=== PATIENT | male | born 1955 | race Caucasian/White ===

== ENCOUNTER 2020-07-14 18:38 | Inpatient (IN) | payer MEDICARE, SELFPAY ==
[2020-07-14] VITALS (7 sets, daily range): BP systolic 96–123; BP diastolic 53–60; PULSE 69–94; RESP 12–28; TEMP 39.5; O2SAT 95–98; BMI 52.3
--- NOTE | 2020-07-14 19:18 | CTR_ITS ---
PROCEDURE INFORMATION: Exam: CT Head Without Contrast Exam date and time: 07/14/2020 7:25 PM Age: 65 years old Clinical indication: Injury or trauma; Fall; Concussion/head injury; Consciousness not specified; Additional info: Fall, head injury, on anticoagulation TECHNIQUE: Imaging protocol: Computed tomography of the head without contrast. Radiation optimization: All CT scans at this facility use at least one of these dose optimization techniques: automated exposure control; mA and/or kV adjustment per patient size (includes targeted exams where dose is matched to clinical indication); or iterative reconstruction. COMPARISON: CT head wo con* [id number] 11/29/2013 9:10 PM RADIATION DOSE METRICS: Total DLP (mGy-cm): 926.27 FINDINGS: Brain: Mild atrophy and mild white matter chronic microvascular changes are noted. No hemorrhage or CT evidence of acute infarction is seen. Cerebral ventricles: No ventriculomegaly. Bones/joints: Unremarkable. No acute fracture. Paranasal sinuses: Visualized sinuses are unremarkable. No fluid levels. Mastoid air cells: Visualized mastoid air cells are well aerated. Soft tissues: Unremarkable. CT/CT head wo con* [id number] IMPRESSION: No acute intracranial abnormality. Radiation Dose CTDIVOL = (mGy): DLP = 926.27 (mGy-cm)
--- NOTE | 2020-07-14 19:18 | XR_ITS ---
WS: [id number] Portable AP upright chest, 07/14/2020 Clinical Data: SOB Comparison: Portable chest, 11/29/2013. Findings: No nodules, masses or effusions are seen. The heart is enlarged. The pulmonary vascularity is not increased. No pneumonia or pneumothorax is seen. The patient is rotated. Monitor leads are on the chest wall. XR/XR chest 1V portable [id number] Impression: Cardiomegaly.
[2020-07-14 19:32] LABS: Basophils % 0.4 %; Hematocrit 41.4 % (42.0-52.0); Hemoglobin 12.5 g/dL (11.7-16.6); Lymphocytes # 0.4 10^3/uL (0.8-4.8); Lymphocytes % 5.1 %; Mean Corpuscular HGB Conc 30.2 g/dL (30.0-36.0); Mean Corpuscular Hemoglobin 28.7 pg (28.0-34.0); Mean Platelet Volume 10.2 fL (7.4-10.4); Monocytes # 0.4 10^3/uL (0.2-0.9); Monocytes % 5.4 %; Neutrophils # 7.26 10^3/uL (1.8-7.7); Neutrophils % 88.7 %; Nucleated Red Blood Cells % 0 %; Platelet Count 163 10^3/cmm (130-400); Red Blood Count 4.36 10^6/uL (4.1-5.3); Red Cell Distribution Width 15.1 % (12.1-15.1); White Blood Count 8.2 10^3/uL (4.0-10.0)
[2020-07-14 19:58] LABS: INR 1.56 (0.8-1.2)
[2020-07-14 20:01] LABS: Lactate (Lactic Acid level) 1.8 mmol/L (0.5-2.2)
[2020-07-14 20:12] LABS: NT Pro B Type Natriuretic Pept 780 pg/mL (0-125); Procalcitonin 15.94 ng/mL (0-0.5)
[2020-07-14 20:23] LABS: Alanine Aminotransferase 31 U/L (0-41); Albumin Level 3.2 g/dL (3.5-5.2); Alkaline Phosphatase 76 IU/L (40-130); Anion Gap 12.6 (5-19); Aspartate Amino Transferase 69 U/L (0-40); Blood Urea Nitrogen 16 mg/dL (8-23); C Reactive Protein 123.4 mg/L (0.0-4.9); Calcium 9.1 mg/dL (8.5-10.5); Carbon Dioxide 27 mmol/L (22-29); Chloride 97 mmol/L (98-107); Globulin 3.3 g/dL (1.3-4.6); Glomerular Filtration Rate 113.9 mL/min (90-130); Glucose 137 mg/dL (65-115); Osmolality Calculated 277 mOsm/kg (285-295); Potassium 4.6 mmol/L (3.5-5.1); Sodium 132 mmol/L (136-145); Total Bilirubin 0.9 mg/dL (0.15-1.2); Total Protein 6.5 g/dL (6.6-8.7)
[2020-07-14 20:38] LABS: SARS Covid-2 Antigen Negative (Negative)
[2020-07-14 21:15] LABS: ABG PH Result 7.27 (7.35-7.45); Arterial Blood Gas Hematocrit 39.7 % (42-52); Base Excess ABG 1.7 mmol/L (-2.0-2.0); Blood Gas Allen Test Pos; Blood Gas Sample Site Radial, right; Blood Gas Sample Type Arterial; HCO3 ABG 30.3 mmol/L (22-26); Oxygen Device NRB
--- NOTE | 2020-07-14 21:29 | ECG_ITS ---
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 Measurements Intervals [place] Rate: 60 P: 20 GA: 221 QRS: -20 QRSD: 112 T: 25 QT: 443 QTc: 446 Interpretive Statements SINUS RHYTHM WITH FIRST DEGREE AV BLOCK MODERATE INTRAVENTRICULAR CONDUCTION DELAY [110+ ms QRS DURATION] No previous ECG available for comparison Electronically Signed On 07-14-2020 21:52:43 [employer] by Nuris Zuniga M.D. [id number]
[2020-07-14 22:11] LABS: Troponin(5th) Baseline 46 ng/L (0-15)
[2020-07-14 22:21] LABS: ABG PCO2 62.7 mmHg (35-45); ABG PH Result 7.29 (7.35-7.45); Arterial Blood Gas Hematocrit 40.3 % (42-52); Base Excess ABG 1.5 mmol/L (-2.0-2.0); Blood Gas Allen Test Pos; Blood Gas Sample Site Radial, right; Blood Gas Sample Type Arterial; HCO3 ABG 29.7 mmol/L (22-26); Oxygen Device BIPAP
[2020-07-14 23:00] LABS: ABG PCO2 66.3 mmHg (35-45)
[2020-07-14 23:38] LABS: Bilirubin Urine Neg (Negative); Blood Urine 2+ (Negative); Glucose Urine UA Norm (Normal); Ketones Urine Negative (Negative); Nitrate Urine Negative (Negative); Protein Urine Trace (Negative); Specific Gravity, Urine 1.025 (1.005-1.030); Urine Appearance Hazy (CLEAR); Urine Color Dark Yellow (Yellow); Urobilinogen Urine 1 mg/dL (Negative)
[2020-07-14 23:39] LABS: Add Urine Microscopic? YES; Leukocyte Esterase Urine Negative (Negative); WBC Urine 15-25 /hpf (0-5)
[2020-07-14 23:40] LABS: Add Urine Culture? Yes; Bacteria Urine 1+ /hpf
[2020-07-14 23:45] LABS: Troponin 5 2HR 35.79 ng/L (0-15)
[2020-07-14] MEDS: cefepime 2,000 MG in sodium chloride 0.9% (plus) 50 ML 100 MG IV (23:52)
[2020-07-15] VITALS (54 sets, daily range): BP systolic 80–152; BP diastolic 34–82; PULSE 45–80; RESP 11–27; TEMP 36.2–38.2; O2SAT 91–100
--- NOTE | 2020-07-15 00:03 | W.ED.FALL ---
HPI - Fall General: Chief Complaint: Fall Stated Complaint: DIFFICULTY BREATHING/ AMS Time Seen by Provider: 07/14/20 18:41 Source: patient Mode of arrival: EMS Limitations: no limitations History of Present Illness: HPI Narrative: This is a 65-year-old male with a past medical history consistent with diabetes mellitus, hypertension, and he is morbidly obese. He presents to the emergency department with difficulty breathing. He states that he has fallen down 3 times today and he is short of breath. He has also a history of atrial fibrillation and he is on warfarin anticoagulation. He was seen at [facility] in [place] earlier today and was discharged home. Looking through his records from [facility] the patient refused admission and the ED physician did not see any reason why the patient should be admitted. When he got home apparently his home health nurse said that his oxygen saturation was 44% on room air after he had fallen at home. He was placed on oxygen via nonrebreather mask and brought to the emergency department for evaluation. The patient denies fever but he was febrile on arrival. He denies any sick contacts. Associated symptoms-after fall: Denies abdominal pain, headache(s) or neck pain Review of Systems General: Reports: 10 or more systems reviewed and unremarkable except in HPI and below Const: Denies: fever(s), chills or body aches Eyes: Denies: change in vision or blurry vision ENMT: Denies: throat pain, enlarged tonsils, odynophagia, hoarseness, mouth pain or swelling of lips/tongue Card: Denies: palpitations, irregular heart rhythm, edema or swelling of feet/ankles Resp: Reports: dyspnea; Denies: productive cough or non-productive cough GI: Denies: abdominal pain, nausea or vomiting : Denies: flank pain, dysuria, urinary frequency, urinary urgency or urinary hesitancy Musc: Denies: neck pain, back pain or extremity swelling Skin/Breast: Denies: rash, pruritus or erythema Neuro: Denies: headache(s), numbness in extremities or weakness in extremities Endo: Denies: polyuria, polydipsia or tired all the time [facility] ED PFSH: Medical History (Updated 07/15/20 @ 11:21 by Daphnie Victoria MD, [facility]) Atrial fibrillation Diabetes mellitus, type II GERD (gastroesophageal reflux disease) History of gastric ulcer with perforation Hypertension Morbid obesity with BMI of 50.0-59.9, adult Surgical History (Updated 07/15/20 @ 01:14 by Katelyn Hamm MD) History of esophagogastroduodenoscopy History of exploratory laparotomy for perforated gastric ulcer Family History (Updated 07/15/20 @ 01:15 by Katelyn Hamm MD) Father Cancer lung Mother Asthma CAD (coronary artery disease) Sister Cerebral aneurysm Social History (Updated 07/15/20 @ 01:16 by Katelyn Hamm MD) Smoking and tobacco status: former smoker Current occupational status: disabled Previous occupational history: history of working in [employer] Physical Exam Const: COMMON NORMALS: no acute distress, patient oriented x3, no limitations, healthy appearing, alert and well nourished NUTRITIONAL APPEARANCE: obese morbidly obese HENMT: COMMON NORMALS: normocephalic, atraumatic and moist oral mucous membranes HEAD & SCALP: normocephalic and atraumatic Neck/C-Spine: COMMON NORMALS: no meningeal signs and no JVD Resp: COMMON NORMALS: normal respiratory effort, No retractions, No use of accessory muscles, clear to auscultation bilaterally and percussion normal EFFORT & INSPECTION: Yes tripod positioning AUSCULTATION: clear to auscultation bilaterally and other (Breath sounds extremely difficult to auscultate due to body habitus) PERCUSSION: percussion normal Cardio: COMMON NORMALS: no JVD, regular rate, regular rhythm, S1 normal heart sound present, S2 normal heart sound present, No gallops present (Cardio), No clicks present (Cardio), No murmurs present (Cardio), No rub (Cardio) and Peripheral pulses 2+ throughout RATE: regular rate RHYTHM: regular rhythm HEART SOUNDS: S1 normal heart sound present and S2 normal heart sound present PERIPHERAL PULSES: Peripheral pulses 2+ throughout GI: COMMON NORMALS: Normal to inspection, nondistended, normoactive bowel sounds present, Soft to palpation, non-tender, No hepatosplenomegaly present, no masses and no bruits INSPECTION: Yes incision (Healed old surgical incision that extends from his xiphoid to his suprapubi) PALPATION: Yes Soft to palpation and Yes No hepatosplenomegaly present Extremity: COMMON NORMALS: normal to inspection, full ROM, capillary refill normal, no calf tenderness and no pedal edema Neuro: COMMON NORMALS: patient oriented x3 SENSORIUM/ORIENTATION: Yes alert MENINGEAL SIGNS: Yes no meningeal signs Skin: COMMON NORMALS: no rashes or lesions noted, no wounds, turgor normal, no jaundice, no petechiae and no mottling GENERAL SKIN EXAM: no rashes or lesions noted and turgor normal Course ED course: Patient who presented to the ED with SOB. He was noted to be in hypercapneic respiratory failure and required ventilation via BiPAP. He is admitted to the hospitalist service for further evaluation and management. Consultations: Consultation #1: Discussed the patient with Dr. Hamm, hospitalist and she kindly accepted the patient to her service. Time: 23:59 Vital Signs: Vital signs: Vital Signs Temperature 97.2 F L 07/15/20 08:15 Pulse Rate 68 07/15/20 09:37 Respiratory Rate 16 07/15/20 08:15 Blood Pressure 125/64 07/15/20 08:15 Pulse Oximetry 96 07/15/20 09:37 MDM - Fall MDM Narrative: Medical decision making narrative: 65-year-old morbidly obese gentleman with a history of hypertension, atrial fibrillation on anticoagulation and diabetes presented today in respiratory failure. He has been seen at another facility today and work-up done was unremarkable. He apparently has had a total of 3 falls today at home and after his last fall he was noted to be hypoxic. Evaluation here shows that he is febrile, was mildly tachycardic on arrival, was tachypneic on arrival and was in hypercapnic respiratory failure. Because of his body habitus his chest x-ray is a poor view and he is beyond what he needs for a CT scan of his chest for our CT scanner. He was tripoding on arrival and eventually was placed on BiPAP. On evaluation his procalcitonin was significantly elevated and he tested negative for the rapid Covid test. A PCR test has been sent out also. Cardiac work-up is essentially unremarkable. He is admitted to the hospitalist service for further evaluation and management. He was given a dose of intravenous cefepime in the emergency department. Because his procalcitonin is elevated he is being managed as a case of pneumonia which may either be a primary community-acquired pneumonia or secondary bacterial infection, viral pneumonia. Medical Records: Attestation: I reviewed the patient's medical records. Lab Data: Attestation: I reviewed the patient's lab results. Labs: Lab Results 07/14/20 07/14/20 07/14/20 Range/Units 19:22 19:22 19:22 WBC 8.2 (4.0-10.0) 10^3/ uL RBC 4.36 (4.1-5.3) 10^6/u L Hgb 12.5 (11.7-16.6) g/dL Hct 41.4 L (42.0-52.0) % MCV 95.0 H (80-94) fL MCH 28.7 (28.0-34.0) pg MCHC 30.2 (30.0-36.0) g/dL RDW 15.1 (12.1-15.1) % Plt Count 163 (130-400) 10^3/c mm MPV 10.2 (7.4-10.4) fL Neut % (Auto) 88.7 % Lymph % (Auto) 5.1 % Whitfield % (Auto) 5.4 % Eos % (Auto) 0.0 % Baso % (Auto) 0.4 % Neut # (Auto) 7.26 (1.8-7.7) 10^3/u L Lymph # (Auto) 0.4 L (0.8-4.8) 10^3/u L Whitfield # (Auto) 0.4 (0.2-0.9) 10^3/u L Eos # (Auto) 0.0 (0.0-0.8) 10^3/u L Baso # (Auto) 0.0 (0.0-0.1) 10^3/u L Nucleated RBC % (a uto) 0 % Nucleated RBCs # 0.0 /100WBC PT 19.30 H (12.1-14.9) SECO NDS INR 1.56 H (0.8-1.2) Specimen Type Sample Site ABG pH (7.35-7.45) ABG pCO2 (35-45) mmHg ABG pO2 (80.0-100.0) mmH g ABG HCO3 (22-26) mmol/L ABG Base Excess (-2.0-2.0) mmol/ L Ronald Test Hematocrit (42-52) % O2 Delivery Device O2 Liters/Min % FiO2 % Physiotherapist'S Assistant ID Sodium 132 L (136-145) mmol/L Potassium 4.6 (3.5-5.1) mmol/L Chloride 97 L (98-107) mmol/L Carbon Dioxide 27 (22-29) mmol/L Anion Gap 12.6 (5-19) BUN 16 (8-23) mg/dL Creatinine 0.7 (0.7-1.2) mg/dL GFR Calculation 113.9 (90-130) mL/min Glucose 137 H (65-115) mg/dL Calculated Osmolal ity 277 L (285-295) mOsm/k g Lactate (0.5-2.2) mmol/L Calcium 9.1 (8.5-10.5) mg/dL Total Bilirubin 0.9 (0.15-1.2) mg/dL AST 69 H (0-40) U/L ALT 31 (0-41) U/L Alkaline Phosphata se 76 (40-130) IU/L Troponin T Baselin e (0-15) ng/L Troponin T 120 Min [place] (0-15) ng/L Delta Troponin T (0-10) ABS# C-Reactive Protein 123.4 H (0.0-4.9) mg/L NT-Pro-B Natriuret Pep 780 H (0-125) pg/mL Total Protein 6.5 L (6.6-8.7) g/dL Albumin 3.2 L (3.5-5.2) g/dL Globulin 3.3 (1.3-4.6) g/dL Procalcitonin 15.94 H (0-0.5) ng/mL Urine Color (Yellow) Urine Appearance (CLEAR) Urine pH (5-7) Ur Specific Gravit y (1.005-1.030) Urine Protein (Negative) Urine Glucose (UA) (Normal) Urine Ketones (Negative) Urine Blood (Negative) Urine Nitrate (Negative) Urine Bilirubin (Negative) Urine Urobilinogen (Negative) mg/dL Ur Leukocyte Marly ase (Negative) Urine RBC (0-2) /hpf Urine WBC (0-5) /hpf Ur Squamous Epith Cells (0-5) /hpf Amorphous Sediment Urine Bacteria (NONE) /hpf SARS-CoV-2 Ag (Rap id) (Negative) 07/14/20 07/14/2007/14/21 Range/Units 19:22 20:00 21:00 WBC (4.0-10.0) 10^3/ uL RBC (4.1-5.3) 10^6/u L Hgb (11.7-16.6) g/dL Hct (42.0-52.0) % MCV (80-94) fL MCH (28.0-34.0) pg MCHC (30.0-36.0) g/dL RDW (12.1-15.1) % Plt Count (130-400) 10^3/c mm MPV (7.4-10.4) fL Neut % (Auto) % Lymph % (Auto) % [place] % (Auto) % Eos % (Auto) % Baso % (Auto) % Neut # (Auto) (1.8-7.7) 10^3/u L Lymph # (Auto) (0.8-4.8) 10^3/u L [place]field # (Auto) (0.2-0.9) 10^3/u L Eos # (Auto) (0.0-0.8) 10^3/u L Baso # (Auto) (0.0-0.1) 10^3/u L Nucleated RBC % (a uto) % Nucleated RBCs # /100WBC PT (12.1-14.9) SECO NDS INR (0.8-1.2) Specimen Type Arterial Sample Site Radial, right ABG pH 7.27 L (7.35-7.45) ABG pCO2 66.3 H* (35-45) mmHg ABG pO2 159.0 H (80.0-100.0) mmH g ABG HCO3 30.3 H (22-26) mmol/L ABG Base Excess 1.7 (-2.0-2.0) mmol/ L Ronald Test Pos Hematocrit 39.7 L (42-52) % O2 Delivery Device Nrb O2 Liters/Min 15.0 % FiO2 % Physiotherapist'S Assistant ID [id number] Sodium (136-145) mmol/L Potassium (3.5-5.1) mmol/L Chloride (98-107) mmol/L Carbon Dioxide (22-29) mmol/L Anion Gap (5-19) BUN (8-23) mg/dL Creatinine (0.7-1.2) mg/dL GFR Calculation (90-130) mL/min Glucose (65-115) mg/dL Calculated Osmolal ity (285-295) mOsm/k g Lactate 1.8 (0.5-2.2) mmol/L Calcium (8.5-10.5) mg/dL Total Bilirubin (0.15-1.2) mg/dL AST (0-40) U/L ALT (0-41) U/L Alkaline Phosphata se (40-130) IU/L Troponin T Baselin e (0-15) ng/L Troponin T 120 Min [place] (0-15) ng/L Delta Troponin T (0-10) ABS# C-Reactive Protein (0.0-4.9) mg/L NT-Pro-B Natriuret Pep (0-125) pg/mL Total Protein (6.6-8.7) g/dL Albumin (3.5-5.2) g/dL Globulin (1.3-4.6) g/dL Procalcitonin (0-0.5) ng/mL Urine Color (Yellow) Urine Appearance (CLEAR) Urine pH (5-7) Ur Specific Gravit y (1.005-1.030) Urine Protein (Negative) Urine Glucose (UA) (Normal) Urine Ketones (Negative) Urine Blood (Negative) Urine Nitrate (Negative) Urine Bilirubin (Negative) Urine Urobilinogen (Negative) mg/dL Ur Leukocyte Marly ase (Negative) Urine RBC (0-2) /hpf Urine WBC (0-5) /hpf Ur Squamous Epith Cells (0-5) /hpf Amorphous Sediment Urine Bacteria (NONE) /hpf SARS-CoV-2 Ag (Rap id) Negative (Negative) 07/14/20 07/14/20 07/14/20 Range/Units 21:50 22:10 22:50 WBC (4.0-10.0) 10^3/ uL RBC (4.1-5.3) 10^6/u L Hgb (11.7-16.6) g/dL Hct (42.0-52.0) % MCV (80-94) fL MCH (28.0-34.0) pg MCHC (30.0-36.0) g/dL RDW (12.1-15.1) % Plt Count (130-400) 10^3/c mm MPV (7.4-10.4) fL Neut % (Auto) % Lymph % (Auto) % [place] % (Auto) % Eos % (Auto) % Baso % (Auto) % Neut # (Auto) (1.8-7.7) 10^3/u L Lymph # (Auto) (0.8-4.8) 10^3/u L [place] # (Auto) (0.2-0.9) 10^3/u L Eos # (Auto) (0.0-0.8) 10^3/u L Baso # (Auto) (0.0-0.1) 10^3/u L Nucleated RBC % (a uto) % Nucleated RBCs # /100WBC PT (12.1-14.9) SECO NDS INR (0.8-1.2) Specimen Type Arterial Sample Site Radial, right ABG pH 7.29 L (7.35-7.45) ABG pCO2 62.7 H* (35-45) mmHg ABG pO2 105.0 H (80.0-100.0) mmH g ABG HCO3 29.7 H (22-26) mmol/L ABG Base Excess 1.5 (-2.0-2.0) mmol/ L Ronald Test Pos Hematocrit 40.3 L (42-52) % O2 Delivery Device Bipap O2 Liters/Min % FiO2 40.0 % Physiotherapist'S Assistant ID [id number] Sodium (136-145) mmol/L Potassium (3.5-5.1) mmol/L Chloride (98-107) mmol/L Carbon Dioxide (22-29) mmol/L Anion Gap (5-19) BUN (8-23) mg/dL Creatinine (0.7-1.2) mg/dL GFR Calculation (90-130) mL/min Glucose (65-115) mg/dL Calculated Osmolal ity (285-295) mOsm/k g Lactate (0.5-2.2) mmol/L Calcium (8.5-10.5) mg/dL Total Bilirubin (0.15-1.2) mg/dL AST (0-40) U/L ALT (0-41) U/L Alkaline Phosphata se (40-130) IU/L Troponin T Baselin e 46 H (0-15) ng/L Troponin T 120 Min [place] (0-15) ng/L Delta Troponin T (0-10) ABS# C-Reactive Protein (0.0-4.9) mg/L NT-Pro-B Natriuret Pep (0-125) pg/mL Total Protein (6.6-8.7) g/dL Albumin (3.5-5.2) g/dL Globulin (1.3-4.6) g/dL Procalcitonin (0-0.5) ng/mL Urine Color Dark yellow (Yellow) Urine Appearance Hazy A (CLEAR) Urine pH 5.0 (5-7) Ur Specific Gravit y 1.025 (1.005-1.030) Urine Protein Trace (Negative) Urine Glucose (UA) Norm (Normal) Urine Ketones Negative (Negative) Urine Blood 2+ H (Negative) Urine Nitrate Negative (Negative) Urine Bilirubin Neg (Negative) Urine Urobilinogen 1 H (Negative) mg/dL Ur Leukocyte Marly ase Negative (Negative) Urine RBC 10-15 H (0-2) /hpf Urine WBC 15-25 H (0-5) /hpf Ur Squamous Epith Cells None (0-5) /hpf Amorphous Sediment Not Reportable Urine Bacteria 1+ H (NONE) /hpf SARS-CoV-2 Ag (Rap id) (Negative) 07/14/20 Range/Units 23:20 WBC (4.0-10.0) 10^3/ uL RBC (4.1-5.3) 10^6/u L Hgb (11.7-16.6) g/dL Hct (42.0-52.0) % MCV (80-94) fL MCH (28.0-34.0) pg MCHC (30.0-36.0) g/dL RDW (12.1-15.1) % Plt Count (130-400) 10^3/c mm MPV (7.4-10.4) fL Neut % (Auto) % Lymph % (Auto) % [place] % (Auto) % Eos % (Auto) % Baso % (Auto) % Neut # (Auto) (1.8-7.7) 10^3/u L Lymph # (Auto) (0.8-4.8) 10^3/u L [place] # (Auto) (0.2-0.9) 10^3/u L Eos # (Auto) (0.0-0.8) 10^3/u L Baso # (Auto) (0.0-0.1) 10^3/u L Nucleated RBC % (a uto) % Nucleated RBCs # /100WBC PT (12.1-14.9) SECO NDS INR (0.8-1.2) Specimen Type Sample Site ABG pH (7.35-7.45) ABG pCO2 (35-45) mmHg ABG pO2 (80.0-100.0) mmH g ABG HCO3 (22-26) mmol/L ABG Base Excess (-2.0-2.0) mmol/ L Ronald Test Hematocrit (42-52) % O2 Delivery Device O2 Liters/Min % FiO2 % Physiotherapist'S Assistant ID Sodium (136-145) mmol/L Potassium (3.5-5.1) mmol/L Chloride (98-107) mmol/L Carbon Dioxide (22-29) mmol/L Anion Gap (5-19) BUN (8-23) mg/dL Creatinine (0.7-1.2) mg/dL GFR Calculation (90-130) mL/min Glucose (65-115) mg/dL Calculated Osmolal ity (285-295) mOsm/k g Lactate (0.5-2.2) mmol/L Calcium (8.5-10.5) mg/dL Total Bilirubin (0.15-1.2) mg/dL AST (0-40) U/L ALT (0-41) U/L Alkaline Phosphata se (40-130) IU/L Troponin T Baselin e (0-15) ng/L Troponin T 120 Min [place] 35.79 H (0-15) ng/L Delta Troponin T -10.21 L (0-10) ABS# C-Reactive Protein (0.0-4.9) mg/L NT-Pro-B Natriuret Pep (0-125) pg/mL Total Protein (6.6-8.7) g/dL Albumin (3.5-5.2) g/dL Globulin (1.3-4.6) g/dL Procalcitonin (0-0.5) ng/mL Urine Color (Yellow) Urine Appearance (CLEAR) Urine pH (5-7) Ur Specific Gravit y (1.005-1.030) Urine Protein (Negative) Urine Glucose (UA) (Normal) Urine Ketones (Negative) Urine Blood (Negative) Urine Nitrate (Negative) Urine Bilirubin (Negative) Urine Urobilinogen (Negative) mg/dL Ur Leukocyte Marly ase (Negative) Urine RBC (0-2) /hpf Urine WBC (0-5) /hpf Ur Squamous Epith Cells (0-5) /hpf Amorphous Sediment Urine Bacteria (NONE) /hpf SARS-CoV-2 Ag (Rap id) (Negative) Imaging Data^: CXR: Attestation: I personally reviewed and interpreted this imaging study as follows: My impression: For film, he has cardiomegaly but no obvious infiltrates. EKG Data^: EKG 1: Attestation: I personally reviewed and interpreted this EKG as follows: EKG interpretation date: 07/14/20 EKG interpretation time: 18:58 Prior EKG tracings: not available for review Interpretation: Sinus rhythm. Heart rate 91 bpm. Left axis deviation EKG 2: Attestation: I personally reviewed and interpreted this EKG as follows: EKG interpretation date: 07/14/20 EKG interpretation time: 21:46 Prior EKG tracings: available for review Interpretation: Sinus rhythm with first-degree AV block. Heart rate 60 bpm. Moderate intraventricular conduction delay. No ST changes. Critical Care Time Critical Care Time: Critical Care Time: Yes Total Critical Care Time: 60 Attestation: This case had a high probability of a clinically significant, sudden, or life threatening deterioration of this patient's condition which required my full and direct attention, intervention and personal management. Patient who presented in hypercapnic respiratory failure and required ventilation using a BiPAP. Discharge Plan Discharge Patient Disposition: Admitted As Inpatient Admit Provider: Katelyn Hamm Clinical Impression: Morbid obesity with BMI of 50.0-59.9, adult, Respiratory acidosis Acute respiratory failure Qualifiers: Respiratory failure complication: hypercapnia Qualified Code(s): J96.02 - Acute respiratory failure with hypercapnia Pneumonia Qualifiers: Pneumonia type: due to unspecified organism Laterality: unspecified laterality Lung location: unspecified part of lung Qualified Code(s): J18.9 - Pneumonia, unspecified organism Condition: Stable Coding Level of Care Code ED Processing [employer] Supervisor for Chg Fwd Exam Comprehensive
--- NOTE | 2020-07-15 01:10 | P.HP_ITS ---
Providers/Chief Complaint Admitting Physician: Katelyn Hamm MD Chief Complaint: DIFFICULTY BREATHING/ AMS History of Present Illness Nhan Sol is a 65 year old male who presented to the emergency room with chief complaint of shortness of breath and recurrent falls. He had been seen in an outside hospital earlier in the day after a fall and was discharged home. He had another fall and when EMS came out this time they noted that he was hypoxic. They reported his oxygen saturation being 44% on room air. He was put on a nonrebreather and transport. On arrival here oxygen saturation was 96% on the nonrebreather. He was febrile and blood pressure was in the 90s systolic. Heart rate was in the 70s. ABG showed 7.2 7/66/159. FiO2 was decreased and he was put on BiPAP. Chest x-ray was limited by body habitus but appeared to show infiltrate. Rapid Covid test was negative. A CT of the head did not show any acute intracranial abnormalities. Additional CT imaging was not able to be done due to body habitus. Patient received some antibiotics and is being admitted for further care. Patient will answer yes no to questions but does not provide a lot of specific details. Old records here are reviewed though are from 2014. Review of Systems Const: Reports: fever(s) Eyes: Denies: change in vision ENMT: Denies: throat pain or nasal congestion Card: Reports: edema; Denies: chest pain or palpitations Resp: Reports: dyspnea; Denies: productive cough or non-productive cough GI: Denies: abdominal pain, nausea, vomiting, diarrhea or constipation : Denies: difficulty urinating Musc: Reports: other (Denies specific injuries from falls) Skin/Breast: Denies: rash or pruritus Neuro: Reports: weakness in extremities and frequent falls; Denies: headache(s) or dizziness Psych: Denies: anxiety or depression Laureano/Lymph: Denies: easy bruising or easy bleeding Medications/Allergies Home Medications Medication Instructions Recorded Confirmed Last Taken Type hydrocodone-acetaminophen 1 tab PO Q6H PRN 07/14/20 07/14/20 07/14/20 History lisinopril 10 mg PO DAILY@0500 07/14/20 07/14/20 07/14/20 History metformin 500 mg PO DAILY@0500 07/14/20 07/14/20 07/14/20 History sotalol 120 mg PO Q12H 07/14/20 07/14/20 07/14/20 History warfarin 5 mg PO DAILY@0500 07/14/20 07/14/20 07/14/20 History cephalexin 500 mg PO TID 07/15/20 07/15/20 Unknown History Allergies Allergy/AdvReac Type Severity Reaction Status Date / Time tape Allergy Unknown Uncoded 07/14/20 18:54 PFSH Acute PFSH: Medical History (Updated 07/15/20 @ 10:18 by Katelyn Hamm MD) Atrial fibrillation Diabetes mellitus, type II GERD (gastroesophageal reflux disease) History of gastric ulcer with perforation Hypertension Morbid obesity with BMI of 50.0-59.9, adult Surgical History (Updated 07/15/20 @ 01:14 by Katelyn Hamm MD) History of esophagogastroduodenoscopy History of exploratory laparotomy for perforated gastric ulcer Family History (Updated 07/15/20 @ 01:15 by Katelyn Hamm MD) Father Cancer lung Mother Asthma CAD (coronary artery disease) Sister Cerebral aneurysm Social History (Updated 07/15/20 @ 01:16 by Katelyn Hamm MD) Smoking and tobacco status: former smoker Current occupational status: disabled Previous occupational history: history of working in [employer] Vitals/I&O/Wt Last Vital Signs Temp 103.1 F H 07/14/20 18:47 Pulse 64 07/15/20 00:48 Resp 12 07/14/20 22:26 BP 109/34 07/15/20 00:48 Pulse Ox 97 07/15/20 00:48 Weight last 48 hrs Weight 195.045 kg Physical Exam Const: OTHER: Sleepy but awakens with stimulation, answers simple questions, oriented to person and place, morbidly obese HENMT: OTHER: Normocephalic atraumatic, dry mucous membranes Eye: OTHER: Pupils are equally reactive bilaterally Neck/C-Spine: OTHER: Large but supple Resp: OTHER: Decreased breath sounds left greater than right, scattered wheezes Cardio: OTHER: Regular rhythm, distant heart sounds GI: OTHER: Abdomen soft, nontender, nondistended with positive bowel sounds : OTHER: Willingham catheter in place Extremity: NARRATIVE EXTREMITY EXAM: 2+ edema Neuro: OTHER: Face symmetric, speech affected by BiPAP but otherwise clear, handgrip equal, moves both feet, gait not currently assessed Skin: OTHER: Chronic stasis changes bilaterally with some dried blood noted to the right leg but no active bleeding Data : 07/14/20 19:22 07/14/20 19:22 Micro: Microbiology 07/14/20 20:00 Blood Culture - Preliminary Blood SPECIMEN COLLECTED A&P Assessment and plan (1) Pneumonia: Presumptive diagnosis based on fever, shortness of breath and chest x-ray, patient with normal white count. Could be viral. Rapid Covid antigen was negative. Procalcitonin was elevated. Status: Acute Qualifiers: Pneumonia type: due to unspecified organism Laterality: left Lung location: lower lobe of lung Qualified Code(s): J18.9 - Pneumonia, unspecified organism (2) Respiratory acidosis: With hypercapnia, in part secondary to nonrebreather. Suspect he has obesity hypoventilation syndrome at baseline. Status: Acute (3) Recurrent falls: Unclear baseline but if patient was having significant hypoxemia as described in the field might account for this as could fevers Status: Acute (4) Atrial fibrillation: Type of A. 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 use Diabetes mellitus complication status: without complication Qualified Code(s): E11.9 - Type 2 diabetes mellitus without complications; Z79.4 - [facility] (current) use of insulin (7) Hypertension: Chronically on lisinopril Status: Chronic Qualifiers: Hypertension type: essential hypertension Qualified Code(s): I10 - Essential (primary) hypertension (8) Morbid obesity with BMI of 50.0-59.9, adult: Status: Chronic Additional A&P Information Elevated BNP Inpatient admission Rocephin and azithromycin for community-acquired pneumonia Pulmonary toilet Follow-up pending blood cultures Send off Covid PCR Continue BiPAP Wean oxygen as able Repeat ABG in the morning Continue home warfarin dose Add prophylactic Lovenox in the setting of a subtherapeutic INR; stop once INR is greater than 2 Daily INR for now Follow serial cardiac enzymes and EKGs Monitor volume status Consider echocardiogram although body habitus will make utility limited Check D-dimer, ferritin and LDH PT and OT evaluation Pepcid for GI prophylaxis Willingham catheter for monitoring of urine output until we have a better idea of how he is doing Supportive care otherwise Full code Attestations Medical Necessity Statement*: Anticipated stay greater than 2 midnights in this patient with issues as noted above. Plans are as indicated. At high risk of rapid clinical decline without above measures. 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
--- NOTE | 2020-07-15 03:29 | ECG_ITS ---
[facility] Test Date: 2020-07-15 Pat Name: Nhan Sol Department: Room: 106 Gender: Male Gastroenterology Technician: : 1955 Requested By: Daphnie Victoria I Order Number: [id number] Reading MD: ALEXANDRA MCADAMS Measurements Intervals [place] Rate: 64 P: 21 NV: 199 QRS: -19 QRSD: 122 T: 58 QT: 416 QTc: 429 Interpretive Statements SINUS RHYTHM MODERATE INTRAVENTRICULAR CONDUCTION DELAY [110+ ms QRS DURATION] Compared to ECG 07/14/2020 21:46:23 First degree AV block no longer present Electronically Signed On 07-15-2020 20:30:54 MOVIE PROJECTIONIST by ALEXANDRA MCADAMS [id number]
[2020-07-15] MEDS: azithromycin 500 MG in sodium chloride 0.9% 250 ML 250 MG IV (03:52)
[2020-07-15] MEDS: enoxaparin 40 mg/0.4 mL Syringe SUBCUT (03:52)
[2020-07-15] MEDS: famotidine 20 mg/2 mL INJ IVP ×2 (03:52→13:58)
[2020-07-15] MEDS: lisinopril 10 mg Tablet PO (04:50)
[2020-07-15] MEDS: warfarin 5 mg Tablet PO (04:50)
[2020-07-15] MEDS: cefTRIAXone 2,000 MG in sodium chloride 0.9% (plus) 50 ML 100 MG IV ×2 (04:54→16:55)
--- NOTE | 2020-07-15 05:20 | PC.NURSE ---
Patient is alert and oriented x4, however is drowsy.
[2020-07-15 05:37] LABS: Ferritin 116 ng/mL (30-400); Lactate Dehydrogenase 282 U/L (135-225)
[2020-07-15 05:40] LABS: Fibrinogen 175 mg/dL (174-498)
[2020-07-15 05:47] LABS: Troponin 5 6HR 27.19 ng/L (0-15)
--- NOTE | 2020-07-15 06:22 | PC.NURSE ---
Addendum entered by Florina Javed RN 07/15/20 06:29: Entered on wrong person. Original Note: Dr. Hamm and warehouse packaging supervisor notified that patient's daughter showed up at registration stating that someone told her she could come visit her mom before she went for her procedure. I was unaware of this. Permission granted by warehouse packaging supervisor and Dr. Hamm for her to visit until 0700 procedure. Daugther has been educated that she is to leave when patient goes to her procedure at 0700. Dr. Hamm also notified of patient having slight confusion at times.
[2020-07-15 06:40] LABS: ABG PH Result 7.25 (7.35-7.45); Arterial Blood Gas Hematocrit 36.8 % (42-52); Base Excess ABG 2.9 mmol/L (-2.0-2.0); Blood Gas Allen Test Pos; Blood Gas Sample Type Arterial; PO2 ABG 65.3 mmHg (80.0-100.0)
[2020-07-15 06:43] LABS: Blood Gas Sample Site Radial, right; Blood Gas Tidal Volume 0.65; Oxygen Device BIPAP
[2020-07-15 06:54] LABS: Glucose Point of Care 94 mg/dL (70-110)
[2020-07-15 07:32] LABS: Influenza A by IFA Negative (Negative); Influenza B by IFA Negative (Negative)
--- NOTE | 2020-07-15 08:00 | PC.NURSE ---
Patient lethargic oriented to person and place. BiPap on. RT titrating settings. Nurse to continue to monitor.
[2020-07-15] MEDS: sotalol 80 mg Tablet 120 MG PO (08:06)
[2020-07-15] MEDS: albuterol 8 gm MDI 2 PUFF INHALATION ×2 (08:12→11:20)
--- NOTE | 2020-07-15 09:30 | PC.NURSE ---
PHI CONSENT Verbal permission from patient to report PHI to brotherDavis. Phone number .
--- NOTE | 2020-07-15 09:37 | USCV_ITS ---
Nhan Sol Age: 65 Gender: M : 1955 Exam Date: 07/15/2020 16:08 Ordering Phys: Harris Pierson MD Technologist: Trevon Ram Exam Location: [facility] [place] Indication: Shortness of breath BP: 85 / 50 HR: 48 Rhythm: Sinus Technical Quality: Poor MEASUREMENTS (Male / Female) Normal Values 2D ECHO LV Diastolic Diameter PLAX 5.1 cm 4.2 - 5.9 / 3.9 - 5.3 cm LV Systolic Diameter PLAX 3.1 cm IVS Diastolic Thickness 1.5 cm 0.6 - 1.0 / 0.6 - 0.9 cm IVS Systolic Thickness 2.1 cm LVPW Diastolic Thickness 1.4 cm 0.6 - 1.0 / 0.6 - 0.9 cm LVPW Systolic Thickness 1.8 cm LVOT Diameter 2.0 cm LV Ejection Fraction 2D Teich 69.0 % LV Ejection Fraction MOD 2C 58.1 % LV Ejection Fraction 2C AL 58.7 % LA Diameter 4.2 cm LA Width 4.7 cm LA Height 6.3 cm RA Width 4.3 cm RA Height 5.6 cm M-MODE LV Diastolic Diameter MM 5.0 cm 4.2 - 5.9 / 3.9 - 5.3 cm LV Systolic Diameter MM 3.3 cm LV Ejection Fraction MM Teich 61.1 % IVS Diastolic Thickness MM 1.6 cm 0.6 - 1.0 / 0.6 - 0.9 cm IVS Systolic Thickness MM 2.3 cm LVPW Diastolic Thickness MM 1.9 cm 0.6 - 1.0 / 0.6 - 0.9 cm LVPW Systolic Thickness MM 2.2 cm RV Diastolic Diameter MM 2.4 cm Aortic Annulus Diameter 4.3 cm LA Ao Ratio MM 1.0 MV E Point Septal Separation 1.7 cm DOPPLER AV Peak Velocity 160.0 cm/s LVOT Peak Velocity 116.0 cm/s AV Area Cont Eq vti 2.3 cm squared AV Area Cont Eq pk 2.3 cm squared MV Area PHT 5.0 cm squared Mitral E to A Ratio 2.1 MV E' Velocity 57.5 cm/s Mitral E to MV E' Ratio 18.4 Mitral E to LV E' Lateral Ratio 12.9 Mitral E to LV E' Septal Ratio 32.4 TR Peak Velocity 151.7 cm/s TR Peak Gradient 9.2 mmHg Right Atrial Pressure 3.0 mmHg Pulmonary Artery Systolic Pressu 12.2 mmHg FINDINGS Left Ventricle Normal left ventricular cavity size. Normal left ventricular systolic function. Left ventricular ejection fraction is estimated at 61 %. Grade II/IV diastolic dysfunction, moderately elevated filling pressures. Right Ventricle The right ventricle is normal in size and function. Right Atrium The right atrium is normal in size. Left Atrium The left atrium is normal in size. Mitral Valve Structurally normal mitral valve without significant stenosis or prolapse. There is no mitral regurgitation. Aortic Valve Structurally normal aortic valve without significant sclerosis or stenosis. There is no aortic regurgitation. Tricuspid Valve Structurally normal tricuspid valve without significant stenosis or regurgitation. Pulmonary artery systolic pressure is normal. Pulmonic Valve Structurally normal pulmonic valve without significant stenosis. There is no pulmonic regurgitation. Pericardium Normal pericardium without effusion. Aorta Normal ascending aorta dimension. CONCLUSIONS 1-Normal left ventricular cavity size. Normal left ventricular systolic function. Left ventricular ejection fraction is estimated at 61 %. Grade II/IV diastolic dysfunction, moderately elevated filling pressures. 2-No significant valve abnormalities. 3-There is no pericardial effusion. 4-Pulmonary artery systolic pressure is within normal limits. 5-Cannot compare with the prior exam due to suboptimal prior study Logan Pizano MD (Electronically Signed) Final Date: 15 July 2020 18:22 S
--- NOTE | 2020-07-15 09:45 | PC.NURSE ---
Verbal order from Dr. Pierson to obtain ABG at 1200 on current BiPap settings, RT notified.
[2020-07-15] MEDS: acetaminophen 325 mg Tablet 650 MG PO (10:41)
[2020-07-15] MEDS: FUROsemide 10 mg/mL SDV 4mL 40 MG IVP ×2 (10:41→20:53)
--- NOTE | 2020-07-15 11:29 | PC.CHAP ---
Pastoral Care Encounter/Spiritual Assessment Type of Contact [] Declined briquette maker visit [] Patient/Family/Request visit [] Outpatient visit [] Follow-up visit [] Physician referral [] Code/Alert [] Routine visit [] Staff referral [] Actively dying [] Patient sleeping [] Family support [] [] Out of room [] Palliative care [] [] Receiving care in room [] Pre-surgical visit [] Trauma [] Long length of stay [] ICU visit [x] Other: Covid 19 Relational/Emotional Strength [] Patient feels connected with others/family/visitors/staff [] Distress [] Loneliness/isolation [] Abandonment Spirituality of Patient [] Person of Liz [] Attends Spiritism of their Liz [] Believes in Prayer [] Reads Bible or Yazidi materials [] There are Spiritual issues to be addressed Medical Staff Coordinator Interventions [] Prayer [] Active listening [] Non-anxious presence [] Spiritual/emotional support [] Crisis/trauma care [] Spiritual counseling [] Bereavement support [] Provided bereavement packet [] Provided Bible/devotional materials [] Provided toy/stuffed animal, coloring book to patient or family member [] Provided Communion [] Anointing/[place] [] Salvation [] Completed spiritual assessment [] Other: Impact on Illness or Injury [] Angry [] Fearful [] Anxious [] Often cries [] Exhaustion [] Unable to work [] Unable to attend latter-day [] Unable to walk/stand [] Unable to read [] Unable to drive [] Unable to eat/drink [] Unable to sleep [] Unable to be with family [] Patient intubated [] Other: Summary Covid 19 Time spent with patient 5 mins
[2020-07-15 11:57] LABS: ABG PH Result 7.24 (7.35-7.45); Arterial Blood Gas Hematocrit 36.6 % (42-52); Base Excess ABG 3.6 mmol/L (-2.0-2.0); Blood Gas Allen Test Pos; Blood Gas Sample Site Radial, left; Blood Gas Sample Type Arterial; Blood Gas Tidal Volume 0.75; Oxygen Device BIPAP; PO2 ABG 62.1 mmHg (80.0-100.0)
[2020-07-15 12:10] LABS: ABG PCO2 76.3 mmHg (35-45)
[2020-07-15 12:13] LABS: ABG PCO2 72.7 mmHg (35-45)
--- NOTE | 2020-07-15 12:38 | PC.NURSE ---
Report called to Johanna in ICU. No further questions at this time. Family notified of transfer, no further questions at this time.
--- NOTE | 2020-07-15 13:15 | PC.NURSE ---
Into room to assist with intubation. Dr. Pierson and Dr. Patel at bedside as well as RT and nursing. Drug administration during this event is as follows: 100mcg phenylephrine given at 1249 Versed two mg given at 1250 Fentanyl 50 mcg given at 1252 Etomidate 30mg given at 1253. Drugs wasted are: 9mg phenylephrine two mg versed (this med was drawn up per physician request but was not given due to patient status.) Fentanyl 50mcg (Vial is 100mcg and only 50mcg was ordered and given.) Etomidate 10mg.
[2020-07-15] MEDS: phenylephrine 10 mg/ml SDV 1 mL IVP (13:34)
[2020-07-15] MEDS: fentaNYL 50 mcg/mL INJ 2mL IVP (13:35)
[2020-07-15] MEDS: sodium chloride 0.9% (100 ml) 100 ML (13:35)
--- NOTE | 2020-07-15 13:41 | PM.ACPR ---
Procedure/Consent Time out: Time Out Performed: No Consent: Consent for Procedure: Emergency procedure Procedure Narrative: Name of the procedure: Endotracheal intubation. Indication: Acute hypercapnic respiratory failure. Medications: Versed: 2 mg IV, fentanyl 50 mcg IV, etomidate 30 mg IV. Procedure: Following administration of the appropriate IV medications, the patient was positioned optimally. The patient was oxygenated with 100% oxygen with noninvasive ventilator. The video laryngoscopy blade was introduced and advanced expose the vocal cords. The endotracheal tube was advanced through the vocal cords under direct visualization. There was fogging of the ET tube, positive change in end-tidal CO2 monitor, bilateral chest rise, bilateral positive breath sound. The ET tube was secured at 24 cm at the lips. Complications: There was no immediate complications. Chest x-ray: Pending Acute Procedures Epistaxis Control: Time out performed: No
[2020-07-15] MEDS: midazolam 1 mg/mL INJ 2 mL 2 MG IVP (13:42)
--- NOTE | 2020-07-15 13:43 | XR_ITS ---
WS: [id number] Portable AP upright chest, 07/15/2020 Clinical Data: post intubation Comparison: Portable chest, 07/14/2020. Findings: There is an endotracheal tube which is above the stephanie. The nasogastric tube appears to be curled in the stomach. The heart remains enlarged. No pneumonia or pneumothorax is seen. It may be a small left pleural effusion. There is a hiatal hernia behind the heart. XR/XR chest 1V portable [id number] Impression: Satisfactory insertion of endotracheal tube and nasogastric tube
--- NOTE | 2020-07-15 14:02 | P.CONIM_ITS ---
Providers/Reason For Consult Consulting Physican/Specialty*: Pulmonary critical care medicine Reason for Consult*: Acute hypercapnic respiratory failure. Attending Physician: Harris Pierson MD History of Present Illness History of Present Illness Nhan Sol is a 65 year old male with a past medical history of diabetes, super morbid obesity, hypertension, pyelonephritis who presented to the hospital on July 14 with shortness of breath. The patient also has a history of atrial fibrillation and is anticoagulated with Coumadin. Apparently the patient went to the hospital in [place] and was discharged from there. At home the patient was found to have an oxygen saturation of 44% and was eventually brought to the hospital. The patient had a chest x-ray in the emergency department which was unremarkable except cardiomegaly. The CT scan of the head was unremarkable. The blood work revealed normal WBC count. Elevated D-dimer. Mildly elevated AST but no other organ dysfunction. The proterminal BNP was elevated at 780. His procalcitonin was high 15.94. The urinary WBC was high without any squamous epithelial cells. The rapid Covid testing was negative. The PCR is pending. The influenza testing was also negative. The patient was febrile in the emergency department. His blood pressure was in the 90s with a heart rate of 70s. The initial arterial blood gas showed a pH of 7.27, PCO2 of 66 and PO2 of 159 on nonrebreather mask. The blood gas is consistent with acute on chronic hypercapnic respiratory failure. The blood culture is negative so far. I do not see any urine culture results. His urine culture in 2013 grew E. coli. The organism was pansensitive. The patient was managed with noninvasive positive pressure ventilation for acute on chronic hypercapnic respiratory failure however his hypercapnia continued to get worse with worsening of his mental status and the patient was eventually intubated. I performed a bedside ultrasound. The patient does not have any B-lines. The cardiac systolic function is normal. There is no evidence of right ventricular pressure volume overload. Review of Systems Narrative: Unable to assess because of clinical condition Meds/Allergies Home Medications and Allergies Home Medications Medication Instructions Recorded Confirmed Last Taken Type hydrocodone-acetaminophen 1 tab PO Q6H PRN 07/14/20 07/14/20 07/14/20 History lisinopril 10 mg PO DAILY@0500 07/14/20 07/14/20 07/14/20 History metformin 500 mg PO DAILY@0500 07/14/20 07/14/20 07/14/20 History sotalol 120 mg PO Q12H 07/14/20 07/14/20 07/14/20 History warfarin 5 mg PO DAILY@0500 07/14/20 07/14/20 07/14/20 History cephalexin 500 mg PO TID 07/15/20 07/15/20 Unknown History Allergies Allergy/AdvReac Type Severity Reaction Status Date / Time tape Allergy Unknown Uncoded 07/14/20 18:54 Current Medications Current Medications Generic Name Dose Route Start Last Admin Trade Name Freq PRN Reason Stop Dose Admin Acetaminophen 650 mg 07/15/20 02:33 07/15/20 10:41 Acetaminophen 325 Mg Tablet PO 650 mg Q6H PRN Administration Mild/Mod Pain Or Temp >/= 101 Albuterol Sulfate 2 puff 07/15/20 02:33 07/15/20 08:12 Albuterol 8 Gm Mdi INHALATION 2 puff Q4H.RESPIRATORY PRN Administration SHORTNESS OF BREATH Enoxaparin Sodium 40 mg 07/15/20 03:00 07/15/20 03:52 Enoxaparin 40 Mg/0.4 Ml Syringe SUBCUT 40 mg Q24H KAI Administration Famotidine 20 mg 07/15/20 02:33 07/15/20 03:52 Famotidine 20 Mg/2 Ml Inj IVP 20 mg Q12H KAI Administration Furosemide 40 mg 07/15/20 09:45 07/15/20 10:41 Furosemide 10 Mg/Ml Sdv 4ml IVP 40 mg Q12H KAI Administration Ceftriaxone Sodium 2,000 mg/ 50 mls @ 100 mls/hr 07/15/20 04:00 07/15/20 05:32 Sodium Chloride IV Infused Q12H KAI Infusion Protocol Azithromycin 500 mg/ Sodium 250 mls @ 250 mls/hr 07/15/20 03:00 07/15/20 04:55 Chloride IV Infused Q24H KAI Infusion Protocol Lisinopril 10 mg 07/15/20 05:00 07/15/20 04:50 Lisinopril 10 Mg Tablet PO 10 mg DAILY@0500 KAI Administration Sotalol HCl 120 mg 07/15/20 09:00 07/15/20 08:06 Sotalol 80 Mg Tablet PO 120 mg BID@0900,2100 KAI Administration Warfarin Sodium 5 mg 07/15/20 05:00 07/15/20 04:50 Warfarin 5 Mg Tablet PO 5 mg DAILY@0500 KAI Administration PFSH Acute PFSH: Medical History Atrial fibrillation Diabetes mellitus, type II GERD (gastroesophageal reflux disease) History of gastric ulcer with perforation Hypertension Morbid obesity with BMI of 50.0-59.9, adult Surgical History History of esophagogastroduodenoscopy History of exploratory laparotomy for perforated gastric ulcer Family History Father Cancer lung Mother Asthma CAD (coronary artery disease) Sister Cerebral aneurysm Social History Smoking and tobacco status: former smoker Current occupational status: disabled Previous occupational history: history of working in [employer] Vitals/I&O/Wt Last Vital Signs Temp 97.2 F L 07/15/20 08:15 Pulse 68 07/15/20 09:37 Resp 17 07/15/20 13:07 BP 125/64 07/15/20 08:15 Pulse Ox 96 07/15/20 09:37 07/14/20 07/15/20 07/15/20 22:59 06:59 14:59 Intake Total 400 / 400 Output Total 400 / 400 Balance 0 / 0 Weight last 48 hrs Weight 476 lb 6.4 oz Weight 430 lb Physical Exam Narrative: EXAM NARRATIVE: General: Patient is intubated and sedated Neck: Unable to assess JVD because of body habitus Respiratory: Auscultation: Bilateral clear to auscultation both anterior and posteriorly, no crackles wheezing or rhonchi Cardiovascular: Regular rate and rhythm, S1-S2 present, no murmur, minimal per ipheral edema. Abdomen: Soft, morbidly obese, positive bowel sounds Skin: No rash Neuro: Unable to assess Urinary Catheter Management^: Willingham: Cath Placed During This Visit: yes Reason for Continuing Indwelling Catheter: Acute Urinary Retention or Obstruction Urinary Catheter Date of Insertion: 07/15/20 Data Micro: Micro: Microbiology 07/14/20 20:00 Blood Culture - Pr eliminary Blood SPECIMEN [place] [place] Other Data: Attestation for Other Data: I personally reviewed and interpreted the following: Other data: I have reviewed the laboratory, microbiologic and radiologic data. Please see the HPI for detail. A&P Assessment and plan (1) Acute and chronic respiratory failure with hypercapnia: The patient has evidence of chronic hypercapnia. This could be secondary to obesity hypoventilation syndrome. There is no previous pulmonary function test or any evidence of COPD being responsible. The patient failed to improve with noninvasive positive pressure ventilation requiring intubation and mechanical ventilation. The acute decompensation is likely secondary to the increased metabolic demand in the setting of sepsis from urinary tract infection. Based on the ventilator flow tracing the patient does not have any evidence of obstructive pulmonary disease. I expect the patient to be ready for extubation within the next 24 to 48 hours. We are going to obtain an airway sample for Gram stain and culture. There is no evidence of lung infiltrate on the chest x-rays. There is no evidence of RV dysfunction on the bedside echocardiogram. The patient had been anticoagulated with Coumadin I have very low suspicion for pulmonary embolism. Status: Acute (2) Urinary tract infection: His urinalysis is positive for inner tract infection. The patient has a history of pyelonephritis in 2013 by E. coli. The patient is currently covered with ceftriaxone. We will follow up with an urine culture. However this could be negative as the patient has already received antibiotic therapy. The patient is hypotensive requiring norepinephrine infusion. This is likely secondary to vasoplegia from sepsis and vasodilatory sedative medications. Status: Acute (3) Atrial fibrillation: The patient is currently on sotalol and he will receive anticoagulation. Status: Chronic Qualifiers: Atrial fibrillation type: unspecified Qualified Code(s): I48.91 - Unspecified atrial fibrillation (4) Morbid obesity with BMI of 50.0-59.9, adult: The patient has super morbid obesity which is likely to complicate the ventilator management. He might need higher than general PEEP setting that we usually use. The goal is for the patient to continue to spontaneously breathe with us providing the ventilatory support. Status: Chronic Coding Level of Care Code Acute Insurance Writer for [facility] Diagnoses Acute and chronic respiratory failure with hypercapnia J96.22 Urinary tract infection N39.0 Atrial fibrillation I48.91 Atrial fibrillation type: unspecified Morbid obesity with BMI of 50.0-59.9, adult E66.01; Z68.43
[2020-07-15] MEDS: propofol 1,000 MG/100 ML INJ 51.9 MG IV ×6 (14:03→22:48)
--- NOTE | 2020-07-15 14:04 | PC.NURSE ---
Sedation meds and Levophed scanned late. Started administration while intubation per direction of Dr Patel. Then scanner difficulties.
[2020-07-15 14:47] LABS: ABG PCO2 50.5 mmHg (35-45); ABG PH Result 7.37 (7.35-7.45); Alveolar-Arterial Oxygen Gradi 39.8 mmHg (5-10); Arterial Blood Gas Hematocrit 36.9 % (42-52); Base Excess ABG 2.7 mmol/L (-2.0-2.0); Blood Gas Allen Test Pos; Blood Gas Operator Identificat GD; Blood Gas Sample Site Radial, left; Blood Gas Sample Type Arterial; Carboxyhemoglobin 1.2 %THgb (0.4-20.1); HCO3 ABG 28.9 mmol/L (22-26); HGB O2 Sat 98.7 % (95-100); Ionized Calcium Level - ABG 1.2 mmol/L (1.1-1.4); Methemoglobin 0.7 % (0.4-1.5); Oxygen Device VENT; Oxygen Saturation ABG > 100.0; Potassium Level - ABG 4.3 mmol/L (3.5-5.0)
--- NOTE | 2020-07-15 15:02 | P.PN_ITS ---
Subjective Subjective: Interval history: This morning patient was examined multiple times: Early this morning, patient was examined, he was on the BiPAP, he was arousable, will put fall back asleep, did follow commands, tells me that he still feels short of breath, no chest pain, no palpitations, no nausea, no vomiting, he knew that he was in the hospital, did not know the time or the date He was reexamined a later on the morning, after his BiPAP settings were changed to 18/8 40% FiO2, for about an hour, his ABG showed worsening hypercapnia, and patient was becoming much more lethargic, more confused, less arousable Patient was moved to the ICU, Dr. Patel was consulted, who kindly intubated the patient in the intensive care unit, placed on the ventilator, fentanyl and propofol for sedation I spoke to patient's daughter over the phone, advised of patient's status, stable, prognosis guarded Vitals/I&O/Wt Last Vital Signs Temp 97.2 F L 07/15/20 08:15 Pulse 68 07/15/20 09:37 Resp 17 07/15/20 13:07 BP 125/64 07/15/20 08:15 Pulse Ox 96 07/15/20 09:37 07/15/20 07/15/20 07/15/20 06:59 14:59 22:59 Intake Total 400 / 400 2.67 / 2.67 100 / 102.67 Output Total 400 / 400 Balance 0 / 0 2.67 / 2.67 100 / 102.67 Weight last 48 hrs Weight 216.091 kg Weight 195.045 kg Physical Exam Narrative: EXAM NARRATIVE: Currently intubated, sedated on a ventilator HENMT: COMMON NORMALS: normocephalic HEAD & SCALP: normocephalic Eye: COMMON NORMALS: Equal, round and reactive pupils present PUPIL: Yes Equal, round and reactive pupils present Neck/C-Spine: COMMON NORMALS: no JVD Lymph: LYMPHATIC: no lymphadenopathy noted Chest: COMMONS NORMALS: normal inspection of the chest Resp: COMMON NORMALS: normal respiratory effort, No retractions, No use of accessory muscles and clear to auscultation bilaterally AUSCULTATION: clear to auscultation bilaterally OTHER: Currently on the ventilator Cardio: COMMON NORMALS: no JVD, regular rate, regular rhythm, S1 normal heart sound present, S2 normal heart sound present, No gallops present (Cardio), No clicks present (Cardio) and No murmurs present (Cardio) RATE: regular rate RHYTHM: regular rhythm HEART SOUNDS: S1 normal heart sound present and S2 normal heart sound present GI: COMMON NORMALS: Normal to inspection, nondistended, normoactive bowel sounds present, Soft to palpation, non-tender and No hepatosplenomegaly present PALPATION: Yes Soft to palpation and Yes No hepatosplenomegaly present OTHER: Large incisional scar large pannus present, slight erythema over pannus erythema present over distal pannus Extremity: COMMON NORMALS: capillary refill normal, no clubbing, cyanosis or edema and no pedal edema Neuro: OTHER: Intubated, sedated Urinary Catheter Management^: Willingham: Cath Placed During This Visit: yes Reason for Continuing Indwelling Catheter: Acute Urinary Retention or Obstruction Urinary Catheter Date of Insertion: 07/15/20 Data : 07/14/20 19:22 07/14/20 19:22 Micro: Microbiology 07/14/20 20:00 Blood Culture - Preliminary Blood SPECIMEN COLLECTED A&P Assessment and plan (1) Acute and chronic respiratory failure with hypercapnia: Multifactorial, related to obesity hypoventilation syndrome, narcotic medications, DAWN, possible pneumonia Plan: -Currently admitted in the intensive care unit -On the ventilator, minimize PEEP to minimize FiO2, ventilator protocol -Levophed to maintain MAP greater than 65 -Daily spontaneous breathing trials -Propofol and fentanyl for sedation -Currently on Rocephin, vancomycin, azithromycin for pneumonia coverage -Continue Lasix 40 mg IV twice daily, BNP 700 -echo cardiogram ordered -D-dimer is elevated at 7, currently my suspicion for this pulmonary emboli is fairly low given he is on Coumadin, INR is 1.5, unfortunate patient is too large to fit through CT scan, is on Coumadin already -Follow urine cultures, blood cultures sputum cultures -Coumadin for DVT prophylaxis -Full code -pepcid for GI prophylaxis -Pulmonary team on consult -Rapid Covid negative, Covid PCR ordered, on isolation -I spoke to patient's daughter, informed of patient's stable status, prognosis guarded Status: Acute (2) Sepsis: -Etiology unclear at this point, pro-Van elevated -Possibly could be having a UTI, urine cultures pending, on Rocephin -Does have erythema over distal pannus, could be having panniculitis, -Currently on vancomycin, Rocephin Status: Acute (3) Pneumonia: Sputum cultures, blood cultures, currently on Rocephin, vancomycin and rosalina thromycin Status: Acute Qualifiers: Pneumonia type: due to unspecified organism Laterality: unspecified laterality Lung location: unspecified part of lung Qualified Code(s): J18.9 - Pneumonia, unspecified organism (4) Morbid obesity with BMI of 50.0-59.9, adult: Status: Chronic (5) Hypertension: Status: Chronic Qualifiers: Hypertension type: essential hypertension Qualified Code(s): I10 - Essential (primary) hypertension (6) Urinary tract infection: Status: Acute (7) Panniculitis: -, Rocephin currently on vancomycin Status: Acute (8) NSTEMI (non-ST elevated myocardial infarction): -Minimally elevated troponin, EKG no acute ST-T wave changes -Likely supply demand ischemia from acute respiratory failure -Aspirin, statin, echo Status: Acute Attestations Medical Necessity Statement*: Patient requires hospitalization, inpatient, greater than 2 midnights, for acute respiratory failure with hypercapnia secondary to obesity hypoventilation, DAWN, pain medications, pneumonia, pannicul itis, UTI, with sepsis Time Spent in Patient Care: Greater than 35 minutes (>than 50% of time spent in counselling and/or direct pt care on unit) . Critical Care Time: Critical Care Time (min): 180 Coding Level of Care Code Acute Pack Worker for [facility] Diagnoses Acute and chronic respiratory failure with hypercapnia J96.22 Sepsis A41.9 Pneumonia J18.9 Pneumonia type: due to unspecified organism Laterality: unspecified laterality Lung location: unspecified part of lung Morbid obesity with BMI of 50.0-59.9, adult E66.01; Z68.43 Hypertension I10 Hypertension type: essential hypertension Urinary tract infection N39.0 Panniculitis M79.3 NSTEMI (non-ST elevated myocardial infarction) I21.4
[2020-07-15] MEDS: nystatin powder 15 gm Btl 1 APPLIC TOPICAL (18:13)
--- NOTE | 2020-07-15 18:13 | PC.NURSE ---
Vancomycin late due limited IV access and med compatibilities, waited for Rocephin to finish.
--- NOTE | 2020-07-15 19:00 | PC.NURSE ---
Report received, care assumed. Monitor alarms, plan of care et previous orders reviewed. Patient on Fentanyl, levophed et propofol gtts infusing et titrating to effect. Orally intubated with an 8.0 ETT secured 26 cm at the lip, see RT flowsheet for details. Please see physical assessment et vital sign flowsheet for details.
[2020-07-15 20:22] LABS: Glucose Point of Care 121 mg/dL (70-110)
[2020-07-16] VITALS (46 sets, daily range): BP systolic 104–170; BP diastolic 58–80; PULSE 46–62; RESP 13–24; TEMP 36.1–37.1; O2SAT 95–100
[2020-07-16] MEDS: azithromycin 500 MG in sodium chloride 0.9% 250 ML 250 MG IV (02:20)
[2020-07-16] MEDS: famotidine 20 mg/2 mL INJ IVP ×2 (02:20→14:19)
[2020-07-16] MEDS: propofol 1,000 MG/100 ML INJ 51.9 MG IV ×3 (02:21→04:36)
[2020-07-16] MEDS: cefTRIAXone 2,000 MG in sodium chloride 0.9% (plus) 50 ML 100 MG IV (04:34)
[2020-07-16 04:40] LABS: Basophils % 0.4 %; Eosinophils # 0.2 10^3/uL (0.0-0.8); Hematocrit 39.6 % (42.0-52.0); Hemoglobin 12.1 g/dL (11.7-16.6); Lymphocytes # 1.4 10^3/uL (0.8-4.8); Lymphocytes % 20.2 %; Mean Corpuscular HGB Conc 30.6 g/dL (30.0-36.0); Mean Platelet Volume 10.6 fL (7.4-10.4); Monocytes # 0.9 10^3/uL (0.2-0.9); Monocytes % 12.8 %; Neutrophils # 4.27 10^3/uL (1.8-7.7); Neutrophils % 63.3 %; Nucleated Red Blood Cells % 0 %; Platelet Count 173 10^3/cmm (130-400); Red Blood Count 4.17 10^6/uL (4.1-5.3); Red Cell Distribution Width 15.5 % (12.1-15.1); White Blood Count 6.7 10^3/uL (4.0-10.0)
[2020-07-16 04:56] LABS: INR 1.53 (0.8-1.2)
[2020-07-16 04:56] LABS: ABG PH Result 7.28 (7.35-7.45); Base Excess ABG 3.6 mmol/L (-2.0-2.0); HCO3 ABG 29.7 mmol/L (22-26); PO2 ABG 68.3 mmHg (80.0-100.0)
[2020-07-16 04:59] LABS: Blood Gas Sample Type ARTERIAL; Oxygen Device VENT
[2020-07-16 05:00] LABS: Arterial Blood Gas Hematocrit 40.5 % (42-52)
[2020-07-16 05:07] LABS: Alanine Aminotransferase 29 U/L (0-41); Alkaline Phosphatase 55 IU/L (40-130); Anion Gap 11.6 (5-19); Aspartate Amino Transferase 65 U/L (0-40); Blood Urea Nitrogen 23 mg/dL (8-23); Calcium 8.9 mg/dL (8.5-10.5); Carbon Dioxide 28 mmol/L (22-29); Chloride 100 mmol/L (98-107); Globulin 3.3 g/dL (1.3-4.6); Glomerular Filtration Rate 113.9 mL/min (90-130); Glucose 112 mg/dL (65-115); Magnesium 1.9 mg/dL (1.7-2.3); Osmolality Calculated 286 mOsm/kg (285-295); Phosphorus 2.5 mg/dL (2.5-4.5); Potassium 3.6 mmol/L (3.5-5.1); Sodium 136 mmol/L (136-145); Total Bilirubin 0.7 mg/dL (0.15-1.2); Total Protein 6.3 g/dL (6.6-8.7)
[2020-07-16 05:08] LABS: C Reactive Protein 70.3 mg/L (0.0-4.9); Lactate (Lactic Acid level) 0.9 mmol/L (0.5-2.2)
[2020-07-16 05:09] LABS: Estmated Average Glucose 126
[2020-07-16 05:40] LABS: NT Pro B Type Natriuretic Pept 154 pg/mL (0-125); Procalcitonin 18.93 ng/mL (0-0.5)
[2020-07-16 05:47] LABS: Coronavirus Test Green County Not Detected
[2020-07-16 05:53] LABS: Creatine Phosphokinase 1630 U/L (39-308)
--- NOTE | 2020-07-16 06:37 | PC.NURSE ---
Notified Dr. Hamm of critical CK value. No new orders at this time. Will continue to monitor.
--- NOTE | 2020-07-16 07:00 | XR_ITS ---
WS: [id number] Portable AP upright chest, 07/16/2020 Clinical Data: sob Comparison: Portable chest, 07/15/2020 Findings: The heart is enlarged. There are bilateral lateral pleural effusions. The pulmonary vascula rity is increased. The endotracheal tube and nasogastric tube remain in same position. Monitor leads are on the chest wall. XR/XR chest 1V portable [id number] Impression: 1. Cardiomegaly with pulmonary vascular congestion and bilateral effusions. 2. Endotracheal tube and nasogastric tube in good position.
[2020-07-16] MEDS: propofol 1,000 MG/100 ML INJ 32.4 MG IV (07:06)
--- NOTE | 2020-07-16 08:30 | PC.NURSE ---
Meenakshi Sol, pt's daughter called to check on pt. Updated her on his condition, Covid testing, and visiting hours.
[2020-07-16] MEDS: FUROsemide 10 mg/mL SDV 4mL 40 MG IVP (09:04)
[2020-07-16] MEDS: nystatin powder 15 gm Btl 1 APPLIC TOPICAL ×2 (09:08→18:22)
[2020-07-16] MEDS: sotalol 80 mg Tablet 120 MG PO ×2 (09:33→20:42)
--- NOTE | 2020-07-16 11:03 | PM.PN ---
Subjective Subjective: Interval history: The patient was seen and examined. He is doing very well. The patient is sedated however is able to communicate and follow commands. Chest x-ray from this morning revealed bilateral pulmonary vascular congestion. Bedside ultrasound revealed bilateral mild B-lines. Medications: Reviewed: Yes Vitals/I&O/Wt Last Vital Signs Temp 97.1 F L 07/16/20 04:00 Pulse 58 L 07/16/20 06:00 Resp 14 07/16/20 11:01 BP 121/63 07/16/20 04:45 Pulse Ox 96 07/16/20 04:45 07/15/20 07/16/20 07/16/20 22:59 06:59 14:59 Intake Total 1374.925 / 2151.411 4634.702 / 2636.297 100 / 100 Output Total 900 / 900 400 / 1300 Balance 474.925 / 477.595 858.702 / 1336.297 100 / 100 Weight last 48 hrs Weight 476 lb 6.4 oz Weight 430 lb Physical Exam Narrative: EXAM NARRATIVE: General: Patient is intubated and comfortably sedated Neck: Unable to assess JVD because of body habitus Respiratory: Auscultation: Bilateral crackles at lung bases, no wheezing or rhonchi Cardiovascular: Regular rate and rhythm, S1-S2 present, no murmur, bilateral peripheral edema. Abdomen: Soft, morbidly obese, positive bowel sounds Skin: No rash Neuro: She is able to follow commands and moving all extremities Urinary Catheter Management^: Willingham: Cath Placed During This Visit: yes Reason for Continuing Indwelling Catheter: Accurate Measurement of Urinary Output in Critically Ill Patients Urinary Catheter Date of Insertion: 07/15/20 Data : 07/16/20 04:00 07/16/20 04:00 Micro: Microbiology 07/15/20 12:58 Gram Stain - Final Sputum - Endotracheal Tube Aspirate Sputum Culture - Preliminary 07/14/20 22:50 Urine Culture - Preliminary Urine,Clean Catch 07/14/20 20:00 Blood Culture - Preliminary Blood NEGATIVE TO DATE 07/15/20 15:40 Bacterial Antigens - Final Urine,Voided Attestation for Other Data: I personally reviewed and interpreted the following: Other data: I have reviewed the patient laboratory microbiologic and radiologic data. Sputum culture from endotracheal aspirate is negative. Blood culture is negative. Urine culture is negative. The white count is normal. A&P Assessment and plan (1) Acute and chronic respiratory failure with hypercapnia: The acute respiratory failure is in the setting of urinary tract infection from decompensation in the setting of likely chronic hypercapnic respiratory failure from morbid obesity and obesity hypoventilation syndrome. Today the patient's blood pressure is much better than yesterday. Currently he is broadly covered with antibiotic. There is no evidence of MRSA infection at this time however there is concern for skin and soft tissue infection. The patient has evidence of pulmonary vascular congestion on the chest x-ray and presence of B-lines on ultrasound. The patient will benefit from diuresis. Increase Lasix to 60 mg twice daily. The patient needs to be about a liter negative and after that the patient should be ready for extubation. Currently the patient is on full control mechanical ventilation this can be easily switched to pressure support ventilation once the patient is in negative fluid balance. At the latest, I expect him to get extubated tomorrow morning. Status: Acute (2) Urinary tract infection: His urine culture is negative so far. Urinalysis positive for UTI. The patient is currently covered with ceftriaxone. We will switch to Zosyn which will cover for both urinary tract infection as well as skin and soft tissue infection except a MRSA infection. Since the patient is improving with the current antibiotic regimen I do not have strong suspicion for MRSA infection. Status: Acute (3) Atrial fibrillation: Rate controlled receiving anticoagulation. The patient is on sotalol. Status: Chronic Qualifiers: Atrial fibrillation type: unspecified Qualified Code(s): I48.91 - Unspecified atrial fibrillation (4) Morbid obesity with BMI of 50.0-59.9, adult: Would recommend extubating the patient to BiPAP. Status: Chronic Attestations Medical Necessity Statement*: Will defer to the primary team Coding Level of Care Code Acute Financial Sales Consultant for [facility] Diagnoses Acute and chronic respiratory failure with hypercapnia J96.22 Urinary tract infection N39.0 Atrial fibrillation I48.91 Atrial fibrillation type: unspecified Morbid obesity with BMI of 50.0-59.9, adult E66.01; Z68.43
--- NOTE | 2020-07-16 11:34 | P.PN_ITS ---
Subjective Subjective: Interval history: This morning patient was examined, he remains on the ventilator, intubated, sedated, has episodes of sinus bradycardia cardia throughout the night, he was weaned off the Levophed, currently hemodynamically stable, had 1300 cc of urine output, chest x-ray showing pulmonary vascular congestion,, no fevers, Vitals/I&O/Wt Last Vital Signs Temp 97.8 F 07/16/20 08:00 Pulse 51 L 07/16/20 10:30 Resp 14 07/16/20 11:01 BP 148/79 07/16/20 10:30 Pulse Ox 99 07/16/20 10:30 07/15/20 07/16/20 07/16/20 22:59 06:59 14:59 Intake Total 1374.925 / 8996.346 7120.702 / 2636.297 160 / 160 Output Total 900 / 900 400 / 1300 Balance 474.925 / 477.595 858.702 / 1336.297 160 / 160 Weight last 48 hrs Weight 216.091 kg Weight 195.045 kg Physical Exam Narrative: EXAM NARRATIVE: Intubated, sedated, on the ventilator Eye: COMMON NORMALS: Equal, round and reactive pupils present PUPIL: Yes Equal, round and reactive pupils present Neck/C-Spine: COMMON NORMALS: no JVD Lymph: LYMPHATIC: no lymphadenopathy noted Chest: COMMONS NORMALS: normal inspection of the chest Resp: COMMON NORMALS: normal respiratory effort, No retractions, No use of accessory muscles and clear to auscultation bilaterally AUSCULTATION: clear to auscultation bilaterally OTHER: Currently on the ventilator Cardio: COMMON NORMALS: no JVD, regular rate, regular rhythm, S1 normal heart sound present, S2 normal heart sound present, No gallops present (Cardio), No clicks present (Cardio) and No murmurs present (Cardio) RATE: regular rate RHYTHM: regular rhythm HEART SOUNDS: S1 normal heart sound present and S2 normal heart sound present GI: COMMON NORMALS: Normal to inspection, nondistended, normoactive bowel sounds present, Soft to palpation, non-tender and No hepatosplenomegaly present PALPATION: Yes Soft to palpation and Yes No hepatosplenomegaly present OTHER: Large incisional scar large pannus present, slight erythema over pannus erythema present over distal pannus Extremity: COMMON NORMALS: capillary refill normal, no clubbing, cyanosis or edema and no pedal edema Neuro: OTHER: Intubated, sedated Urinary Catheter Management^: Willingham: Cath Placed During This Visit: yes Reason for Continuing Indwelling Catheter: Accurate Measurement of Urinary Output in Critically Ill Patients Urinary Catheter Date of Insertion: 07/15/20 Data : 07/16/20 04:00 07/16/20 04:00 Micro: Microbiology 07/15/20 12:58 Gram Stain - Final Sputum - Endotracheal Tube Aspirate Sputum Culture - Preliminary 07/14/20 22:50 Urine Culture - Preliminary Urine,Clean Catch 07/14/20 20:00 Blood Culture - Preliminary Blood NEGATIVE TO DATE 07/15/20 15:40 Bacterial Antigens - Final Urine,Voided A&P Assessment and plan (1) Acute and chronic respiratory failure with hypercapnia: Multifactorial, related to obesity hypoventilation syndrome, narcotic medications, DAWN, possible pneumonia Plan: -Currently admitted in the intensive care unit -On the ventilator, minimize PEEP to minimize FiO2, ventilator protocol -Levophed to maintain MAP greater than 65, currently off -Daily spontaneous breathing trials, will try early this morning - fentanyl for sedation, stop propofol given elevated CPK, risk for propofol infusion syndrome, switch to Versed -Currently on Zosyn azithromycin for pneumonia coverage -Continue Lasix 40 mg IV twice daily, BNP 700, might I titrate based on pulmonary's recommendations -echo cardiogram ordered showed diastolic dysfunction, normal EF, no significant wall motion abnormalities -D-dimer is elevated at 7, currently my suspicion for this pulmonary emboli is fairly low given he is on Coumadin, INR is 1.5, unfortunate patient is too large to fit through CT scan, is on Coumadin already -Follow urine cultures, blood cultures sputum cultures -Coumadin for DVT prophylaxis -Full code -pepcid for GI prophylaxis -Pulmonary team on consult -Rapid Covid negative, Covid PCR negative -I spoke to patient's daughter, informed of patient's stable status, prognosis guarded Plan for today, increase Lasix dose, switch antibiotic coverage to Zosyn, stop vancomycin, plan for extubation if has good urine output Status: Acute (2) Sepsis: -Etiology unclear at this point, pro-Van elevated -Possibly could be having a UTI, urine cultures pending, on Rocephin -Does have erythema over distal pannus, could be having panniculitis, -Currently on vancomycin, Rocephin Status: Acute (3) Pneumonia: Sputum cultures, blood cultures, currently on Rocephin, vancomycin and azithromycin Status: Acute Qualifiers: Pneumonia type: due to unspecified organism Laterality: unspecified laterality Lung location: unspecified part of lung Qualified Code(s): J18.9 - Pneumonia, unspecified organism (4) Morbid obesity with BMI of 50.0-59.9, adult: Status: Chronic (5) Hypertension: Status: Chronic Qualifiers: Hypertension type: essential hypertension Qualified Code(s): I10 - Essential (primary) hypertension (6) Urinary tract infection: On Zosyn Status: Acute (7) Panniculitis: Antibiotic coverage changed to Zosyn Status: Acute (8) NSTEMI (non-ST elevated myocardial infarction): -Minimally elevated troponin, EKG no acute ST-T wave changes -Likely supply demand ischemia from acute respiratory failure -Aspirin, statin, echo Status: Acute Additional A&P Information Elevated BNP Inpatient admission Rocephin and azithromycin for community-acquired pneumonia Pulmonary toilet Follow-up pending blood cultures Send off Covid PCR Continue BiPAP Wean oxygen as able Repeat ABG in the morning Continue home warfarin dose Add prophylactic Lovenox in the setting of a subtherapeutic INR; stop once INR is greater than 2 Daily INR for now Follow serial cardiac enzymes and EKGs Monitor volume status Consider echocardiogram although body habitus will make utility limited Check D-dimer, ferritin and LDH PT and OT evaluation Pepcid for GI prophylaxis Willingham catheter for monitoring of urine output until we have a better idea of how he is doing Supportive care otherwise Full code Attestations Medical Necessity Statement*: Patient requires hospitalization, acute hypoxic hypercarbic respiratory failure, panniculitis, UTI, pneumonia Coding Level of 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
[2020-07-16] MEDS: piperacillin-tazobactam 3.375 GM in sodium chloride 0.9% (plus) 50 ML IV ×2 (12:44→20:38)
--- NOTE | 2020-07-16 15:00 | PC.NURSE ---
Mayra Sol, called at 1200 to inquire about pt. Stated she was his daughter. Updated on condition. After speaking with Meenakshi, this afternoon, found out Mayra is actually pt's stepdaughter. At Meenakshi's ( pt's legal net of kin) request Mayra called back and notified that visiting would be kept to biological children until pt could talke and felt better.
--- NOTE | 2020-07-16 17:30 | PC.NURSE ---
Meenakshi Winston called to check on pt's condition and to request escort into facility when she visits tomoorow she is afraid of her mother, half-sister, etc.
--- NOTE | 2020-07-16 18:40 | PC.NURSE ---
Shift summary: Pt remains intubated and sedated. FIO2 at 35%. Heart rate 56-65 today. Lungs sounds are diminished. Daughter, Meenakshi, here during visiting hours. Some strained family dynamics between Meenakshi and extended family. Meenakshi to be visitor and person to contact. CO2 improving. Pt cooperative and follows commands, but will reach for that tube at times. Propofol discontinued and Versed started for sedation. Fentanyl remains infusing. Urine ouput greater than 1500ml.
--- NOTE | 2020-07-16 19:58 | PC.NURSE ---
Shift summary: Pt transferred to ICU from [facility] and emergently intubated today. He is now o 40% FIO2 , CMV . He has propofol and fentanyl for sedation. His blood pressures have been soft, so he in now on Levophed, currently at 9mcg/min. Nystatin applied under pannis. Daughter, Meenakshi Sol called for an update, discussed pt's condition, medications and visitation after Covid precautions lifted. with her. Some medications may have been delayed due to intubation process and caring for other pt's with the staff patient ratio of today.
--- NOTE | 2020-07-16 20:00 | PC.NURSE ---
Pain assessment comment: Patient does not show any non-verbal signs of pain on current fentanyl dose.Will frequently assess patients pain signs/ symptoms.
[2020-07-16] MEDS: FUROsemide 10 mg/mL SDV 10mL 60 MG IVP (20:39)
[2020-07-16 23:09] LABS: Glucose Point of Care 74 mg/dL (70-110)
[2020-07-16 23:09] LABS: Glucose Point of Care 76 mg/dL (70-110)
[2020-07-17] VITALS (24 sets, daily range): BP systolic 103–134; BP diastolic 48–76; PULSE 57–86; RESP 11–31; TEMP 36.4–37.2; O2SAT 91–100
[2020-07-17] MEDS: famotidine 20 mg/2 mL INJ IVP ×2 (01:50→13:39)
[2020-07-17] MEDS: azithromycin 500 MG in sodium chloride 0.9% 250 ML 250 MG IV (02:20)
[2020-07-17] MEDS: piperacillin-tazobactam 3.375 GM in sodium chloride 0.9% (plus) 50 ML IV ×3 (03:56→19:54)
[2020-07-17 04:54] LABS: ABG PH Result 7.42 (7.35-7.45); Base Excess ABG 5.9 mmol/L (-2.0-2.0); Blood Gas Allen Test Pos; Blood Gas Sample Site Radial, right; Blood Gas Sample Type Arterial; HCO3 ABG 31.4 mmol/L (22-26); Oxygen Device VENT; PO2 ABG 76.5 mmHg (80.0-100.0)
[2020-07-17 05:46] LABS: NT Pro B Type Natriuretic Pept 87 pg/mL (0-125); Procalcitonin 9.76 ng/mL (0-0.5)
[2020-07-17 05:47] LABS: Basophils # 0.1 10^3/uL (0.0-0.1); Basophils % 0.9 %; Eosinophils # 0.2 10^3/uL (0.0-0.8); Eosinophils % 4.2 %; Hematocrit 40.4 % (42.0-52.0); Hemoglobin 12.4 g/dL (11.7-16.6); Lymphocytes # 1.5 10^3/uL (0.8-4.8); Lymphocytes % 25.5 %; Mean Corpuscular HGB Conc 30.7 g/dL (30.0-36.0); Mean Corpuscular Hemoglobin 28.5 pg (28.0-34.0); Mean Corpuscular Volume 92.9 fL (80-94); Mean Platelet Volume 10.6 fL (7.4-10.4); Monocytes # 0.7 10^3/uL (0.2-0.9); Monocytes % 11.5 %; Neutrophils # 3.29 10^3/uL (1.8-7.7); Neutrophils % 57.6 %; Nucleated Red Blood Cells % 0 %; Platelet Count 203 10^3/cmm (130-400); Red Blood Count 4.35 10^6/uL (4.1-5.3); Red Cell Distribution Width 15.3 % (12.1-15.1); White Blood Count 5.7 10^3/uL (4.0-10.0)
[2020-07-17 05:56] LABS: INR 1.51 (0.8-1.2)
[2020-07-17 05:57] LABS: Alanine Aminotransferase 29 U/L (0-41); Albumin Level 3.2 g/dL (3.5-5.2); Alkaline Phosphatase 61 IU/L (40-130); Anion Gap 12.9 (5-19); Aspartate Amino Transferase 77 U/L (0-40); Blood Urea Nitrogen 18 mg/dL (8-23); C Reactive Protein 66.5 mg/L (0.0-4.9); Calcium 8.8 mg/dL (8.5-10.5); Carbon Dioxide 30 mmol/L (22-29); Chloride 98 mmol/L (98-107); Globulin 3.4 g/dL (1.3-4.6); Glomerular Filtration Rate 136.1 mL/min (90-130); Glucose 96 mg/dL (65-115); Magnesium 1.7 mg/dL (1.7-2.3); Osmolality Calculated 286 mOsm/kg (285-295); Phosphorus 2.8 mg/dL (2.5-4.5); Potassium 3.9 mmol/L (3.5-5.1); Sodium 137 mmol/L (136-145); Total Bilirubin 0.9 mg/dL (0.15-1.2); Total Protein 6.6 g/dL (6.6-8.7)
--- NOTE | 2020-07-17 06:10 | PC.NURSE ---
Received patient's critical CK value. Expected result. No new orders given at this time.
[2020-07-17 06:14] LABS: Creatine Phosphokinase 1515 U/L (39-308)
--- NOTE | 2020-07-17 06:15 | PC.NURSE ---
Critical CK of 151 called, notified Cristina Garza RN.
--- NOTE | 2020-07-17 07:45 | PC.NURSE ---
Recieved report Pt on Versed at 2mcg/hr and Fentanyl at 50mcg/hr. MAR has Fentanyl at 15mcg/hr.
--- NOTE | 2020-07-17 08:28 | PC.CHAP ---
Pastoral Care Encounter/Spiritual Assessment Type of Contact [] Declined diamond sizer and sorter visit [] Patient/Family/Request visit [] Outpatient visit [] Follow-up visit [] Physician referral [] Code/Alert [] Routine visit [] Staff referral [] Actively dying [] Patient sleeping [] Family support [] [] Out of room [] Palliative care [] [] Receiving care in room [] Pre-surgical visit [] Trauma [] Long length of stay [x] ICU visit [] Other: Relational/Emotional Strength [] Patient feels connected with others/family/visitors/staff [] Distress [] Loneliness/isolation [] Abandonment Spirituality of Patient [] Person of Liz [] Attends Religion of their Liz [] Believes in Prayer [] Reads Bible or Yazidism materials [] There are Spiritual issues to be addressed Bench Worker Interventions [x] Prayer [] Active listening [] Non-anxious presence [] Spiritual/emotional support [] Crisis/trauma care [] Spiritual counseling [] Bereavement support [] Provided bereavement packet [] Provided Bible/devotional materials [] Provided toy/stuffed animal, coloring book to patient or family member [] Provided Communion [] Anointing/[place] [] Salvation [x] Completed spiritual assessment [] Other: Impact on Illness or Injury [] Angry [] Fearful [] Anxious [] Often cries [] Exhaustion [] Unable to work [] Unable to attend jew [] Unable to walk/stand [] Unable to read [] Unable to drive [] Unable to eat/drink [] Unable to sleep [] Unable to be with family [] Patient intubated [] Other: Summary Time spent with patient
[2020-07-17] MEDS: sotalol 80 mg Tablet 120 MG PO ×2 (09:19→20:08)
[2020-07-17] MEDS: FUROsemide 10 mg/mL SDV 10mL 60 MG IVP (09:19)
[2020-07-17] MEDS: nystatin powder 15 gm Btl 1 APPLIC TOPICAL ×2 (09:20→17:53)
--- NOTE | 2020-07-17 10:30 | PC.OT ---
OT tx withheld as pt continues to be intubated. Will monitor pts status and resume OT tx when extubated.
--- NOTE | 2020-07-17 10:46 | P.PN_ITS ---
Subjective Subjective: Interval history: Currently intubated, sedated on the ventilator, had robust urine output yesterday, remains afebrile, normotensive, tolerating ventilator well, Vitals/I&O/Wt Last Vital Signs Temp 97.5 F L 07/17/20 08:00 Pulse 66 07/17/20 09:00 Resp 11 L 07/17/20 10:33 BP 117/66 07/17/20 09:00 Pulse Ox 98 07/17/20 09:00 07/16/20 07/17/20 07/17/20 22:59 06:59 14:59 Intake Total 100 / 857.333 124.325 / 981.658 128.367 / 128.367 Output Total 1600 / 3050 1800 / 4850 Balance -1500 / -2192.667 -1675.675 / -3868.342 128.367 / 128.367 Physical Exam Narrative: EXAM NARRATIVE: Intubated, sedated, on the ventilator HENMT: COMMON NORMALS: normocephalic HEAD & SCALP: normocephalic Eye: COMMON NORMALS: Equal, round and reactive pupils present PUPIL: Yes Equal, round and reactive pupils present Neck/C-Spine: COMMON NORMALS: no JVD Lymph: LYMPHATIC: no lymphadenopathy noted Chest: COMMONS NORMALS: normal inspection of the chest Resp: COMMON NORMALS: normal respiratory effort, No retractions, No use of accessory muscles and clear to auscultation bilaterally AUSCULTATION: clear to auscultation bilaterally OTHER: Currently on the ventilator Cardio: COMMON NORMALS: no JVD, regular rate, regular rhythm, S1 normal heart sound present and S2 normal heart sound present RATE: regular rate RHYTHM: regular rhythm HEART SOUNDS: S1 normal heart sound present and S2 normal heart sound present GI: COMMON NORMALS: Normal to inspection, nondistended, normoactive bowel sounds present, Soft to palpation, non-tender, No hepatosplenomegaly present, no masses and no bruits PALPATION: Yes Soft to palpation and Yes No hepatosplenomegaly present OTHER: Large incisional scar large pannus present, slight erythema over pannus erythema present over distal pannus Extremity: COMMON NORMALS: capillary refill normal, no clubbing, cyanosis or edema, no calf tenderness and no pedal edema Neuro: OTHER: Intubated, sedated Psych: COMMON NORMALS: mental status grossly normal Urinary Catheter Management^: Willingham: Cath Placed During This Visit: yes Reason for Continuing Indwelling Catheter: Accurate Measurement of Urinary Output in Critically Ill Patients Urinary Catheter Date of Insertion: 07/15/20 Data : 07/17/20 05:30 07/17/20 05:00 Micro: Microbiology 07/15/20 12:58 Gram Stain - Final Sputum - Endotracheal Tube Aspirate Sputum Culture - Final 07/14/20 22:50 Urine Culture - Preliminary Urine,Clean Catch A&P Assessment and plan (1) Acute and chronic respiratory failure with hypercapnia: Multifactorial, related to obesity hypoventilation syndrome, narcotic medications, DAWN, possible pneumonia Plan: -We will give 1 dose of Lasix 60 mg IV push once, spontaneous breathing trial early this morning, extubate onto BiPAP -Currently admitted in the intensive care unit -On the ventilator, minimize PEEP to minimize FiO2, ventilator protocol -Levophed to maintain MAP greater than 65, currently off -Daily spontaneous breathing trials, will try early this morning -On fentanyl and Versed for sedation, CPK trending down to 15,000 -Currently on Zosyn azithromycin for pneumonia coverage -Continue Lasix 60 mg IV twice daily, BNP 700, -echo cardiogram ordered showed diastolic dysfunction, normal EF, no significant wall motion abnormalities -D-dimer is elevated at 7, currently my suspicion for this pulmonary emboli is fairly low given he is on Coumadin, INR is 1.55, unfortunate patient is too large to fit through CT scan, is on Coumadin already, INR 1.55, pharmacy managing -Follow urine cultures, blood cultures sputum cultures -Coumadin for DVT prophylaxis -Full code -pepcid for GI prophylaxis -Pulmonary team on consult -Rapid Covid negative, Covid PCR negative -I spoke to patient's daughter, informed of patient's stable status, prognosis guarded Plan for today, extubate today, to BiPAP continue antibiotics Status: Acute (2) Sepsis: -Etiology likely secondary UTI, panniculitis -Possibly could be having a UTI, urine cultures pending, on Rocephin -Does have erythema over distal pannus, could be having panniculitis, -Currently on Zosyn, and azithromycin Status: Acute (3) Pneumonia: Sputum cultures, blood cultures, currently on Rocephin, vancomycin and azithromycin Status: Acute Qualifiers: Pneumonia type: due to unspecified organism Laterality: unspecified laterality Lung location: unspecified part of lung Qualified Code(s): J18.9 - Pneumonia, unspecified organism (4) Morbid obesity with BMI of 50.0-59.9, adult: Status: Chronic (5) Hypertension: Status: Chronic Qualifiers: Hypertension type: essential hypertension Qualified Code(s): I10 - Essential (primary) hypertension (6) Urinary tract infection: On Zosyn Status: Acute (7) Panniculitis: Antibiotic coverage changed to Zosyn Status: Acute (8) NSTEMI (non-ST elevated myocardial infarction): -Minimally elevated troponin, EKG no acute ST-T wave changes -Likely supply demand ischemia from acute respiratory failure -Aspirin, statin - 1-Normal left ventricular cavity size. Normal left ventricular systolic function. Left ventricular ejection fraction is estimated at 61 %. Grade II/IV diastolic dysfunction, moderately elevated filling pressures. 2-No significant valve abnormalities. 3-There is no pericardial effusion. 4-Pulmonary artery systolic pressure is within normal limits. 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
--- NOTE | 2020-07-17 11:52 | PC.RESP ---
extubated pt extubated to bipap. tolerated well
--- NOTE | 2020-07-17 12:04 | PC.NURSE ---
extubated at this time restraints removed and ng removed whole and intact placed to bipap at this time fio2 of 40 and I of 18 and E 10
[2020-07-17] MEDS: acetaminophen 325 mg Tablet 650 MG PO (13:39)
--- NOTE | 2020-07-17 14:37 | PM.PN ---
Subjective Subjective: Interval history: The patient was seen and examined. He was extubated earlier today. He was on BiPAP doing well. The patient was completely awake alert and oriented without any significant respiratory difficulty. His daughter was in the room. The patient has a previous history of obstructive sleep apnea however he does not use his CPAP on a regular basis as he had difficulty using the facemask. According to the patient, he has blisters and he stopped using the facemask. The patient had also been following up the bariatric surgery team in [place]. The patient was supposed to undergo the procedure last year. The patient went to the hospital and was found to be in A. fib and the procedure was canceled. This year, the procedure was postponed because of the Covid 19 pandemic. The patient also has back pain which he has been dealing with. Vitals/I&O/Wt Last Vital Signs Temp 97.5 F L 07/17/20 08:00 Pulse 63 07/17/20 12:00 Resp 22 H 07/17/20 12:00 BP 110/58 07/17/20 12:00 Pulse Ox 97 07/17/20 12:00 07/16/20 07/17/20 07/17/20 22:59 06:59 14:59 Intake Total 100 / 857.333 124.325 / 981.658 128.367 / 128.367 Output Total 1600 / 3050 1800 / 4850 Balance -1500 / -2192.667 -1675.675 / -3868.342 128.367 / 128.367 Physical Exam Narrative: EXAM NARRATIVE: General: Patient is awake alert and oriented Neck: Unable to assess JVD because of body habitus Respiratory: Auscultation: Minimal crackles at bilateral lung bases, no wheezing or rhonchi Cardiovascular: Regular rate and rhythm, S1-S2 present, no murmur, mild bilateral peripheral edema. Abdomen: Soft, nontender, morbidly obese, positive bowel sounds Skin: No rash Neuro: The patient is following all commands and no focal deficit Urinary Catheter Management^: Willingham: Cath Placed During This Visit: yes Reason for Continuing Indwelling Catheter: Accurate Measurement of Urinary Output in Critically Ill Patients Urinary Catheter Date of Insertion: 07/15/20 Data : 07/17/20 05:30 07/17/20 05:00 Micro: Microbiology 01/14/21 12:58 Gram Stain - Final Sputum - Endotracheal Tube Aspirate Sputum Culture - Final Attestation for Other Data: I personally reviewed and interpreted the following: Other data: I have reviewed the patient's laboratory, microbiologic and radiologic data. A&P Assessment and plan (1) Acute and chronic respiratory failure with hypercapnia: Patient was extubated this morning and currently doing well. The patient was maintained with BiPAP post extubation. He has a history of obstructive sleep apnea. He will need further evaluation with that he has a component of obesity hypoventilation syndrome as well. The patient in the process of undergoing bariatric surgery evaluation for weight loss. Status: Acute (2) Urinary tract infection: The patient can probably be only treated with Zosyn. There is no indication for azithromycin at this time. Status: Acute (3) Atrial fibrillation: Patient is in sinus rhythm. On sotalol and anticoagulated. Status: Chronic Qualifiers: Atrial fibrillation type: unspecified Qualified Code(s): I48.91 - Unspecified atrial fibrillation (4) Morbid obesity with BMI of 50.0-59.9, adult: I will follow up with the patient as outpatient. 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
[2020-07-17] MEDS: ketorolac 10 mg Tablet PO ×2 (16:27→23:14)
--- NOTE | 2020-07-17 17:54 | PC.NURSE ---
Absolutely no information given to Emily Sol. per patient.
--- NOTE | 2020-07-17 17:59 | PC.NURSE ---
Medication waste: Fentayl gtt 92 ml and Versed 73 ml wasted. Witnessed by Alphonso Alonso RN.
--- NOTE | 2020-07-17 18:13 | PC.NURSE ---
witness waste of versed and fentynl
--- NOTE | 2020-07-17 18:16 | PC.NURSE ---
Shift summary: Sedation stopped around 0830. Lasix administered. Daughter Meenakshi in at visiting hours. Pt extubated shortly before noon, to BiPaP. In early afternoon pt swithced to nasal cannula. He is currently at 3lpm/NC tolerating well. Pt has constant back pain from herniated discs per pt. Toradol seemed to be more effective than acetaminophen. Physical therapy here this evening, pt able to stand a few times with assist at side of bed, back pain making it difficult per pt. Per pt ex Emily is to have zero information. Urine out put of 1650 plae yellow , sediment clearing up.
[2020-07-18] VITALS (32 sets, daily range): BP systolic 97–155; BP diastolic 49–90; PULSE 66–83; RESP 16–41; TEMP 35.9–37.7; O2SAT 89–100
[2020-07-18] MEDS: azithromycin 500 MG in sodium chloride 0.9% 250 ML 250 MG IV (02:04)
[2020-07-18] MEDS: famotidine 20 mg/2 mL INJ IVP ×2 (02:04→14:00)
[2020-07-18] MEDS: piperacillin-tazobactam 3.375 GM in sodium chloride 0.9% (plus) 50 ML IV (03:41)
[2020-07-18] MEDS: ketorolac 10 mg Tablet PO ×2 (05:20→11:52)
[2020-07-18 06:54] LABS: Basophils # 0.1 10^3/uL (0.0-0.1); Basophils % 0.8 %; Eosinophils # 0.3 10^3/uL (0.0-0.8); Eosinophils % 4.6 %; Hematocrit 40.8 % (42.0-52.0); Hemoglobin 12.2 g/dL (11.7-16.6); Lymphocytes # 1.6 10^3/uL (0.8-4.8); Lymphocytes % 25.4 %; Mean Corpuscular HGB Conc 29.9 g/dL (30.0-36.0); Mean Corpuscular Hemoglobin 28.4 pg (28.0-34.0); Mean Corpuscular Volume 95.1 fL (80-94); Mean Platelet Volume 10.5 fL (7.4-10.4); Monocytes # 0.8 10^3/uL (0.2-0.9); Monocytes % 11.8 %; Neutrophils # 3.68 10^3/uL (1.8-7.7); Neutrophils % 56.9 %; Nucleated Red Blood Cells % 0 %; Platelet Count 218 10^3/cmm (130-400); Red Blood Count 4.29 10^6/uL (4.1-5.3); Red Cell Distribution Width 15.4 % (12.1-15.1); White Blood Count 6.5 10^3/uL (4.0-10.0)
[2020-07-18 07:15] LABS: Lactate (Lactic Acid level) 1.5 mmol/L (0.5-2.2)
[2020-07-18 07:25] LABS: NT Pro B Type Natriuretic Pept 386 pg/mL (0-125); Procalcitonin 4.29 ng/mL (0-0.5)
[2020-07-18 07:37] LABS: Alanine Aminotransferase 33 U/L (0-41); Albumin Level 2.9 g/dL (3.5-5.2); Alkaline Phosphatase 60 IU/L (40-130); Blood Urea Nitrogen 16 mg/dL (8-23); C Reactive Protein 73.9 mg/L (0.0-4.9); Calcium 9.3 mg/dL (8.5-10.5); Carbon Dioxide 30 mmol/L (22-29); Chloride 99 mmol/L (98-107); Globulin 3.4 g/dL (1.3-4.6); Glomerular Filtration Rate 167.9 mL/min (90-130); Glucose 145 mg/dL (65-115); Magnesium 1.9 mg/dL (1.7-2.3); Osmolality Calculated 288 mOsm/kg (285-295); Phosphorus 2.7 mg/dL (2.5-4.5); Sodium 137 mmol/L (136-145); Total Bilirubin 1.3 mg/dL (0.15-1.2); Total Protein 6.3 g/dL (6.6-8.7)
[2020-07-18 07:40] LABS: Aspartate Amino Transferase 76 U/L (0-40)
[2020-07-18 07:42] LABS: Creatine Phosphokinase 1018 U/L (39-308)
[2020-07-18] MEDS: FUROsemide 40 mg Tablet PO (07:58)
[2020-07-18] MEDS: sotalol 80 mg Tablet 120 MG PO ×2 (07:59→20:19)
[2020-07-18] MEDS: TRAMadol 50 mg Tablet PO ×2 (08:00→14:01)
[2020-07-18] MEDS: nystatin powder 15 gm Btl 1 APPLIC TOPICAL ×2 (08:01→18:16)
--- NOTE | 2020-07-18 09:01 | PC.SOCIAL ---
IM follow up initialed explained and copy provided to patient. He has no questions.
[2020-07-18] MEDS: lidocaine 5% Patch 1 PATCH TOPICAL ×2 (09:57→20:20)
[2020-07-18] MEDS: cefTRIAXone 1,000 MG in sodium chloride 0.9% (plus) 50 ML 100 MG IV (10:03)
--- NOTE | 2020-07-18 10:40 | PM.PN ---
Subjective Subjective: Interval history: Patient was examined this morning, he sitting up to the side of the bed, tells me that he is in so much pain, his back is hurting him, he cannot tolerate the pain anymore, denies any chest pain, any shortness of breath, no lightheadedness, no dizziness, no nausea, no vomiting Medications: Reviewed: Yes Vitals/I&O/Wt Last Vital Signs Temp 99.9 F H 07/18/20 00:00 Pulse 82 07/18/20 06:00 Resp 30 H 07/18/20 06:00 BP 130/70 07/18/20 06:00 Pulse Ox 96 07/18/20 04:00 07/17/20 07/18/20 07/18/20 22:59 06:59 14:59 Intake Total 510.017 / 638.384 530 / 1168.384 50 / 50 Output Total 1650 / 1650 400 / 2050 Balance -1139.983 / -1011.616 130 / -881.616 50 / 50 Physical Exam Const: COMMON NORMALS: no acute distress and patient oriented x3 HENMT: COMMON NORMALS: normocephalic HEAD & SCALP: normocephalic Neck/C-Spine: COMMON NORMALS: no JVD Resp: COMMON NORMALS: normal respiratory effort, No retractions, No use of accessory muscles and clear to auscultation bilaterally AUSCULTATION: clear to auscultation bilaterally Cardio: COMMON NORMALS: no JVD, regular rate, regular rhythm, S1 normal heart sound present and S2 normal heart sound present RATE: regular rate RHYTHM: regular rhythm HEART SOUNDS: S1 normal heart sound present and S2 normal heart sound present GI: COMMON NORMALS: Normal to inspection, nondistended, normoactive bowel sounds present, Soft to palpation, non-tender, No hepatosplenomegaly present, no masses and no bruits PALPATION: Yes Soft to palpation and Yes No hepatosplenomegaly present OTHER: Large incisional scar large pannus present, slight erythema over pannus erythema present over distal pannus Extremity: COMMON NORMALS: capillary refill normal, no clubbing, cyanosis or edema, no calf tenderness and no pedal edema Neuro: COMMON NORMALS: patient oriented x3 Psych: COMMON NORMALS: mental status grossly normal Urinary Catheter Management^: Willingham: Cath Placed During This Visit: yes Reason for Continuing Indwelling Catheter: Accurate Measurement of Urinary Output in Critically Ill Patients Urinary Catheter Date of Insertion: 07/15/20 Data : 07/18/20 06:23 07/18/20 06:23 Micro: Microbiology 07/14/20 22:50 Urine Culture - Final Urine,Clean Catch 07/15/20 12:58 Gram Stain - Final Sputum - Endotracheal Tube Aspirate Sputum Culture - Final A&P Assessment and plan (1) Acute and chronic respiratory failure with hypercapnia: Multifactorial, related to obesity hypoventilation syndrome, narcotic medications, DAWN, possible pneumonia Plan: -Extubated yesterday -Continue nasal cannula, BiPAP as needed for shortness of breath, BiPAP during the night -We will order an overnight pulse ox, to see if he qualifies for BiPAP -Levophed to maintain MAP greater than 65, currently off -Lasix 40 mg p.o. daily -echo cardiogram ordered showed diastolic dysfunction, normal EF, no significant wall motion abnormalities -D-dimer is elevated at 7, currently my suspicion for this pulmonary emboli is fairly low given he is on Coumadin, INR is 1.55, unfortunate patient is too large to fit through CT scan, is on Coumadin already, INR 1.60, pharmacy managing -Follow urine cultures, blood cultures sputum cultures all so far negative -Coumadin for DVT prophylaxis -Full code -pepcid for GI prophylaxis -Pulmonary team on consult -Rapid Covid negative, Covid PCR negative -I spoke to patient's daughter Plan for today, given persistent fevers, will change antibiotic coverage to vancomycin and Rocephin Status: Acute (2) Sepsis: -Etiology likely secondary UTI, panniculitis -Possibly could be having a UTI, urine cultures unremarkable, on Rocephin -Does have erythema over distal pannus, could be having panniculitis, -Switch to Rocephin and vancomycin Status: Acute (3) Pneumonia: Sputum cultures, blood cultures, currently on Rocephin, vancomycin and azithromycin Status: Acute Qualifiers: Pneumonia type: due to unspecified organism Laterality: unspecified laterality Lung location: unspecified part of lung Qualified Code(s): J18.9 - Pneumonia, unspecified organism (4) Morbid obesity with BMI of 50.0-59.9, adult: Status: Chronic (5) Hypertension: Status: Chronic Qualifiers: Hypertension type: essential hypertension Qualified Code(s): I10 - Essential (primary) hypertension (6) Urinary tract infection: On Zosyn Status: Acute (7) Panniculitis: Antibiotic coverage changed to Zosyn Status: Acute (8) NSTEMI (non-ST elevated myocardial infarction): -Minimally elevated troponin, EKG no acute ST-T wave changes -Likely supply demand ischemia from acute respiratory failure -Aspirin, statin - 1-Normal left ventricular cavity size. Normal left ventricular systolic function. Left ventricular ejection fraction is estimated at 61 %. Grade II/IV diastolic dysfunction, moderately elevated filling pressures. 2-No significant valve abnormalities. 3-There is no pericardial effusion. 4-Pulmonary artery systolic pressure is within normal limits. Status: Acute Additional A&P Information Severe back pain: Continue Toradol, Ultram, IcyHot, Aspercreme if this does not suffice, will place patient back on a lower dose of hydrocodone Full code Attestations Medical Necessity Statement*: Patient requires hospitalization, for acute respiratory failure, sepsis secondary to UTI panniculitis, Coding Level of Care Code Acute Video News Editor for [facility] Fwd Diagnoses Acute and chronic respiratory failure with hypercapnia J96.22 Sepsis A41.9 Pneumonia J18.9 Pneumonia type: due to unspecified organism Laterality: unspecified laterality Lung location: unspecified part of lung Morbid obesity with BMI of 50.0-59.9, adult E66.01; Z68.43 Hypertension I10 Hypertension type: essential hypertension Urinary tract infection N39.0 Panniculitis M79.3 NSTEMI (non-ST elevated myocardial infarction) I21.4
--- NOTE | 2020-07-18 11:21 | PC.OT ---
Occupational therapy Re-Assessment performed due to possible status change after intubation. Patient's current goals and treatment plan are still valid, no changes needed at this time. Patient to continue occupational therapy treatment.
[2020-07-18] MEDS: warfarin 5 mg Tablet PO (14:00)
--- NOTE | 2020-07-18 19:13 | PC.NURSE ---
Report given to ORIN Ansari. Shift summary: Pt up out of bed for several hours in a chair with assist of PT. Hair shampooed and bathed with OT. Pain meds changed around, Ultram , Aspercreme, and Lidocaine patch added. Seems to help more. Pt seemed more satisfied with pain management this afternoon. He was very upset this am about his level of pain. No resp distress noted today. He remains on 3 lpm/NC. His daughter Meenakshi, in at visiting hours, encouraged him throughout the day. Urine output of 900ml.
[2020-07-19] VITALS (33 sets, daily range): BP systolic 81–185; BP diastolic 52–79; PULSE 54–72; RESP 9–30; TEMP 36.1–37.1; O2SAT 90–98
[2020-07-19] MEDS: TRAMadol 50 mg Tablet PO ×5 (00:17→19:28)
[2020-07-19] MEDS: ketorolac 10 mg Tablet PO ×2 (00:17→12:06)
[2020-07-19] MEDS: famotidine 20 mg/2 mL INJ IVP (01:48)
[2020-07-19 03:53] LABS: Basophils # 0.1 10^3/uL (0.0-0.1); Basophils % 0.7 %; Eosinophils # 0.3 10^3/uL (0.0-0.8); Eosinophils % 4.3 %; Hematocrit 37.7 % (42.0-52.0); Lymphocytes # 1.6 10^3/uL (0.8-4.8); Lymphocytes % 23.4 %; Mean Corpuscular HGB Conc 29.2 g/dL (30.0-36.0); Mean Corpuscular Hemoglobin 28.4 pg (28.0-34.0); Mean Corpuscular Volume 97.2 fL (80-94); Mean Platelet Volume 10.8 fL (7.4-10.4); Monocytes # 0.7 10^3/uL (0.2-0.9); Neutrophils # 4.01 10^3/uL (1.8-7.7); Nucleated Red Blood Cells % 0 %; Platelet Count 191 10^3/cmm (130-400); Red Blood Count 3.88 10^6/uL (4.1-5.3); Red Cell Distribution Width 15.3 % (12.1-15.1); White Blood Count 6.7 10^3/uL (4.0-10.0)
[2020-07-19 04:06] LABS: ABG PH Result 7.36 (7.35-7.45); Arterial Blood Gas Hematocrit 36.3 % (42-52); Base Excess ABG 8.5 mmol/L (-2.0-2.0); Blood Gas Allen Test Pos; Blood Gas Operator Identificat HARKR; Blood Gas Sample Site Radial, right; Blood Gas Sample Type Arterial; HCO3 ABG 35.8 mmol/L (22-26); Oxygen Device BIPAP; PO2 ABG 93.2 mmHg (80.0-100.0)
[2020-07-19 04:15] LABS: INR 1.65 (0.8-1.2)
[2020-07-19 04:18] LABS: Alanine Aminotransferase 32 U/L (0-41); Albumin Level 2.9 g/dL (3.5-5.2); Alkaline Phosphatase 59 IU/L (40-130); Anion Gap 9.1 (5-19); Aspartate Amino Transferase 59 U/L (0-40); Blood Urea Nitrogen 13 mg/dL (8-23); Calcium 8.8 mg/dL (8.5-10.5); Carbon Dioxide 34 mmol/L (22-29); Chloride 99 mmol/L (98-107); Globulin 3.2 g/dL (1.3-4.6); Glomerular Filtration Rate 167.9 mL/min (90-130); Glucose 111 mg/dL (65-115); Magnesium 1.8 mg/dL (1.7-2.3); Osmolality Calculated 287 mOsm/kg (285-295); Phosphorus 2.8 mg/dL (2.5-4.5); Potassium 4.1 mmol/L (3.5-5.1); Sodium 138 mmol/L (136-145); Total Bilirubin 0.9 mg/dL (0.15-1.2); Total Protein 6.1 g/dL (6.6-8.7)
[2020-07-19 04:31] LABS: NT Pro B Type Natriuretic Pept 814 pg/mL (0-125); Procalcitonin 2.76 ng/mL (0-0.5)
[2020-07-19 06:56] LABS: Creatine Phosphokinase 553 U/L (39-308)
--- NOTE | 2020-07-19 07:00 | XR_ITS ---
WS: [id number] PORTABLE CHEST HISTORY: sob COMPARISON: 07/16/2020 Diffuse mild haziness and edema. No areas of dense consolidation. No pleural effusion or pneumothorax . Cardiac size: Mildly enlarged cardiac silhouette. Mediastinum/Aorta: Mild atherosclerosis aorta. No osseous abnormality seen. XR/XR chest 1V portable [id number] IMPRESSION: No pneumonia. Mild interstitial edema and fluid overload.
[2020-07-19] MEDS: FUROsemide 40 mg Tablet PO ×2 (08:41→19:28)
[2020-07-19] MEDS: sotalol 80 mg Tablet 120 MG PO ×2 (08:41→21:33)
[2020-07-19] MEDS: cefTRIAXone 1,000 MG in sodium chloride 0.9% (plus) 50 ML 100 MG IV (08:42)
[2020-07-19] MEDS: lidocaine 5% Patch 1 PATCH TOPICAL ×2 (08:42→21:36)
[2020-07-19] MEDS: nystatin powder 15 gm Btl 1 APPLIC TOPICAL ×2 (08:43→19:29)
--- NOTE | 2020-07-19 09:21 | PC.CHAP ---
Pastoral Care Encounter/Spiritual Assessment Type of Contact [] Declined rail car repairman visit [] Patient/Family/Request visit [] Outpatient visit [] Follow-up visit [] Physician referral [] Code/Alert [] Routine visit [] Staff referral [] Actively dying [] Patient sleeping [] Family support [] [] Out of room [] Palliative care [] [] Receiving care in room [] Pre-surgical visit [] Trauma [] Long length of stay [x] ICU visit [] Other: Relational/Emotional Strength [] Patient feels connected with others/family/visitors/staff [] Distress [] Loneliness/isolation [] Abandonment Spirituality of Patient [] Person of Liz [] Attends Shinto of their Liz [] Believes in Prayer [] Reads Bible or Anabaptist materials [] There are Spiritual issues to be addressed Packaging Sales Consultant Interventions [x] Prayer [] Active listening [] Non-anxious presence [] Spiritual/emotional support [] Crisis/trauma care [] Spiritual counseling [] Bereavement support [] Provided bereavement packet [] Provided Bible/devotional materials [] Provided toy/stuffed animal, coloring book to patient or family member [] Provided Communion [] Anointing/[place] [] Salvation [x] Completed spiritual assessment [] Other: Impact on Illness or Injury [] Angry [] Fearful [] Anxious [] Often cries [] Exhaustion [] Unable to work [] Unable to attend faith [] Unable to walk/stand [] Unable to read [] Unable to drive [] Unable to eat/drink [] Unable to sleep [] Unable to be with family [] Patient intubated [] Other: Summary Time spent with patient
--- NOTE | 2020-07-19 11:06 | PM.PN ---
Subjective Subjective: Interval history: is doing fine.He tolerated the BIPAP well overnight night. He has remained afebrile.He is participating in physical therapy. His other vitals and labs have been reviewed. Medications: Reviewed: Yes Vitals/I&O/Wt Last Vital Signs Temp 97.7 F 07/19/20 08:00 Pulse 63 07/19/20 10:00 Resp 17 07/19/20 09:00 BP 129/65 07/19/20 10:00 Pulse Ox 96 07/19/20 10:00 07/18/20 07/19/20 07/19/20 22:59 06:59 14:59 Intake Total 560 / 1560 1250 / 2810 360 / 360 Output Total 900 / 900 400 / 1300 Balance -340 / 660 850 / 1510 360 / 360 Physical Exam Const: COMMON NORMALS: patient oriented x3 HENMT: COMMON NORMALS: normocephalic and atraumatic HEAD & SCALP: normocephalic and atraumatic Eye: COMMON NORMALS: no scleral icterus Chest: CHEST: Yes Symmetrical chest wall rise Resp: COMMON NORMALS: normal respiratory effort, No retractions, No use of accessory muscles and clear to auscultation bilaterally EFFORT & INSPECTION: Yes symmetric chest movement AUSCULTATION: clear to auscultation bilaterally Cardio: COMMON NORMALS: regular rate, regular rhythm, S1 normal heart sound present, S2 normal heart sound present, No gallops present (Cardio), No murmurs present (Cardio), No rub (Cardio) and Peripheral pulses 2+ throughout RATE: regular rate RHYTHM: regular rhythm HEART SOUNDS: S1 normal heart sound present and S2 normal heart sound present PERIPHERAL PULSES: Peripheral pulses 2+ throughout GI: COMMON NORMALS: Normal to inspection, nondistended, normoactive bowel sounds present, Soft to palpation, non-tender, No hepatosplenomegaly present and no masses AUSCULTATION: Yes normoactive bowel sounds PALPATION: Yes Soft to palpation and Yes No hepatosplenomegaly present RECTAL EXAM: Yes deferred Extremity: COMMON NORMALS: no clubbing, cyanosis or edema and no pedal edema Neuro: COMMON NORMALS: patient oriented x3 Urinary Catheter Management^: Willingham: Cath Placed During This Visit: yes Reason for Continuing Indwelling Catheter: Accurate Measurement of Urinary Output in Critically Ill Patients Urinary Catheter Date of Insertion: 07/15/20 Data : 07/19/20 03:14 07/19/20 03:14 A&P Assessment and plan (1) Acute and chronic respiratory failure with hypercapnia: Multifactorial, related to obesity hypoventilation syndrome, narcotic medications, DAWN, possible pneumonia Plan: -S/P Extubation -Continue nasal cannula, BiPAP as needed for shortness of breath, BiPAP during the night -Off Levophed -Lasix 40 mg p.o. daily -2D: echo cardiogram: diastolic dysfunction, normal EF, no significant wall motion abnormalities -D-dimer is elevated at 7, currently my suspicion for this pulmonary emboli is fairly low given he is on Coumadin, INR is 1.55, unfortunate patient is too large to fit through CT scan, is on Coumadin already, INR 1.60, pharmacy managing -Follow urine cultures, blood cultures sputum cultures all so far negative -Coumadin for DVT prophylaxis -Full code -pepcid for GI prophylaxis -Pulmonary team on consult -Rapid Covid negative, Covid PCR negative -I spoke to patient's daughter Plan for today, given persistent fevers, will change antibiotic coverage to vancomycin and Rocephin Status: Acute (2) Sepsis: -Etiology likely secondary UTI, panniculitis -Possibly could be having a UTI, urine cultures unremarkable, on Rocephin -Does have erythema over distal pannus, could be having panniculitis, -Blood Culture : Negative -Sputum Culture : Negative -Urine Bacterial Antigen :Negative -On Rocephin and vancomycin -Azithromycin was DC Status: Acute (3) Pneumonia: Status: Acute Qualifiers: Pneumonia type: due to unspecified organism Laterality: unspecified laterality Lung location: unspecified part of lung Qualified Code(s): J18.9 - Pneumonia, unspecified organism (4) Morbid obesity with BMI of 50.0-59.9, adult: Status: Chronic (5) Hypertension: Status: Chronic Qualifiers: Hypertension type: essential hypertension Qualified Code(s): I10 - Essential (primary) hypertension (6) Urinary tract infection: Status: Acute (7) Panniculitis: Status: Acute (8) NSTEMI (non-ST elevated myocardial infarction): -Minimally elevated troponin, EKG no acute ST-T wave changes -Likely supply demand ischemia from acute respiratory failure -Aspirin, statin - 1-Normal left ventricular cavity size. Normal left ventricular systolic function. Left ventricular ejection fraction is estimated at 61 %. Grade II/IV diastolic dysfunction, moderately elevated filling pressures. 2-No significant valve abnormalities. 3-There is no pericardial effusion. 4-Pulmonary artery systolic pressure is within normal limits. 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 Coding Level of Care Code Acute Proposal Engineer for [facility] Fwd Diagnoses Acute and chronic respiratory failure with hypercapnia J96.22 Sepsis A41.9 Pneumonia J18.9 Pneumonia type: due to unspecified organism Laterality: unspecified laterality Lung location: unspecified part of lung Morbid obesity with BMI of 50.0-59.9, adult E66.01; Z68.43 Hypertension I10 Hypertension type: essential hypertension Urinary tract infection N39.0 Panniculitis M79.3 NSTEMI (non-ST elevated myocardial infarction) I21.4 Atrial fibrillation I48.91 Atrial fibrillation type: unspecified Diabetes mellitus, type II E11.9; Z79.4 Diabetes mellitus halfway insulin use: with exterminator use Diabetes mellitus complication status: without complication
[2020-07-19 11:33] LABS: Vancomycin Trough 12.1 ug/mL (10-15)
--- NOTE | 2020-07-19 11:40 | PC.NURSE ---
MAR other delay: Waited on Vanc trough result, which was drawn late by lab, before admin Vancomycin IV.
[2020-07-19] MEDS: famotidine 20 mg Tablet PO (13:58)
--- NOTE | 2020-07-19 15:26 | PC.NURSE ---
Report given to Umang Stephenson
[2020-07-19] MEDS: acetaminophen 325 mg Tablet 650 MG PO (15:48)
--- NOTE | 2020-07-19 17:43 | PM.PN ---
Subjective Subjective: Interval history: Patient was seen and examined. The patient is sitting in a chair having dinner. No new complaints. Medications: Reviewed: Yes Vitals/I&O/Wt Last Vital Signs Temp 97.7 F 07/19/20 14:00 Pulse 70 07/19/20 14:00 Resp 25 H 07/19/20 13:00 BP 125/71 07/19/20 14:00 Pulse Ox 98 07/19/20 14:00 07/19/20 07/19/20 07/19/20 06:59 14:59 22:59 Intake Total 1750 / 3310 1310 / 1310 Output Total 400 / 1300 Balance 1349 1310 / 1310 Physical Exam Narrative: EXAM NARRATIVE: General: Patient is awake alert and oriented Neck: No jugular venous distention Respiratory: Auscultation: Bilateral clear to auscultation, no crackles wheezing or rhonchi Cardiovascular: Regular rate and rhythm, S1-S2 present, no murmur, mild bilateral peripheral edema. Abdomen: Soft, nontender, morbidly obese, positive bowel sounds Skin: No rash Neuro: The patient is following all commands and no focal deficit Urinary Catheter Management^: Willingham: Cath Placed During This Visit: yes Reason for Continuing Indwelling Catheter: Accurate Measurement of Urinary Output in Critically Ill Patients Urinary Catheter Date of Insertion: 07/15/20 Data : 07/19/20 03:14 07/19/20 03:14 Attestation for Other Data: I personally reviewed and interpreted the following: Other data: I have reviewed the patient's laboratory, microbiologic and radiologic data A&P Assessment and plan (1) Acute and chronic respiratory failure with hypercapnia: The patient is doing very well. He is back to his baseline. He is ready for discharge. His arterial blood gas from today is consistent with chronic hypercapnic respiratory failure. This is likely secondary to obesity hypoventilation syndrome. The patient is currently on CPAP for obstructive sleep apnea. He would benefit from BiPAP therapy. The patient is ready for discharge. He can follow-up with me within the next 1 to 2 weeks. The patient is going to need a complete pulmonary function test and I will switch his CPAP to BiPAP. The patient has bilateral lower extremity edema likely secondary to right heart failure in the setting of super morbid obesity likely pulmonary hypertension. We will continue the patient with 40 of Lasix twice a day till he comes back and sees me. Patient was not on any Lasix at home. Status: Acute (2) Urinary tract infection: The patient is currently on ceftriaxone. He still has a Willingham catheter which is in the process of getting removed. Status: Acute (3) Atrial fibrillation: Patient is in sinus rhythm. On sotalol and anticoagulated. Status: Chronic Qualifiers: Atrial fibrillation type: unspecified Qualified Code(s): I48.91 - Unspecified atrial fibrillation (4) Morbid obesity with BMI of 50.0-59.9, adult: I will follow up with the patient as outpatient. The patient is not using his CPAP on a regular basis at home this will need optimization Status: Chronic Attestations Medical Necessity Statement*: Will defer to the primary team Coding Level of Care Code Acute Commercial Analyst for [facility] Fwd Diagnoses Acute and chronic respiratory failure with hypercapnia J96.22 Urinary tract infection N39.0 Atrial fibrillation I48.91 Atrial fibrillation type: unspecified Morbid obesity with BMI of 50.0-59.9, adult E66.01; Z68.43
[2020-07-19] MEDS: capsaicin 0.025% cream 60 gm 1 APPLIC TOPICAL (21:34)
[2020-07-20] VITALS (12 sets, daily range): BP systolic 93–143; BP diastolic 56–78; PULSE 63–88; RESP 18–22; TEMP 36.6–37.2; O2SAT 87–97
[2020-07-20] MEDS: famotidine 20 mg Tablet PO ×2 (02:22→13:14)
[2020-07-20] MEDS: ketorolac 10 mg Tablet PO (02:22)
[2020-07-20 05:23] LABS: Basophils % 0.7 %; Eosinophils # 0.4 10^3/uL (0.0-0.8); Eosinophils % 6.5 %; Hematocrit 37.1 % (42.0-52.0); Hemoglobin 11.2 g/dL (11.7-16.6); Lymphocytes # 1.3 10^3/uL (0.8-4.8); Lymphocytes % 22.2 %; Mean Corpuscular HGB Conc 30.2 g/dL (30.0-36.0); Mean Corpuscular Hemoglobin 28.6 pg (28.0-34.0); Mean Corpuscular Volume 94.9 fL (80-94); Mean Platelet Volume 10.6 fL (7.4-10.4); Monocytes # 0.6 10^3/uL (0.2-0.9); Monocytes % 9.9 %; Neutrophils # 3.64 10^3/uL (1.8-7.7); Neutrophils % 60.2 %; Nucleated Red Blood Cells % 0 %; Platelet Count 200 10^3/cmm (130-400); Red Blood Count 3.91 10^6/uL (4.1-5.3); Red Cell Distribution Width 14.8 % (12.1-15.1)
[2020-07-20 05:27] LABS: INR 1.59 (0.8-1.2)
[2020-07-20 06:04] LABS: Alanine Aminotransferase 34 U/L (0-41); Albumin Level 2.9 g/dL (3.5-5.2); Alkaline Phosphatase 58 IU/L (40-130); Anion Gap 10.7 (5-19); Aspartate Amino Transferase 51 U/L (0-40); Blood Urea Nitrogen 13 mg/dL (8-23); Calcium 8.8 mg/dL (8.5-10.5); Carbon Dioxide 33 mmol/L (22-29); Chloride 96 mmol/L (98-107); Globulin 3.4 g/dL (1.3-4.6); Glomerular Filtration Rate 167.9 mL/min (90-130); Glucose 118 mg/dL (65-115); Osmolality Calculated 283 mOsm/kg (285-295); Potassium 3.7 mmol/L (3.5-5.1); Sodium 136 mmol/L (136-145); Total Bilirubin 0.8 mg/dL (0.15-1.2); Total Protein 6.3 g/dL (6.6-8.7)
[2020-07-20 06:06] LABS: NT Pro B Type Natriuretic Pept 855 pg/mL (0-125); Procalcitonin 1.56 ng/mL (0-0.5)
[2020-07-20] MEDS: lisinopril 10 mg Tablet PO (06:16)
[2020-07-20 06:17] LABS: Creatine Phosphokinase 296 U/L (39-308)
--- NOTE | 2020-07-20 08:01 | PC.NURSE ---
Told nurse about bp of 93/56
[2020-07-20] MEDS: lidocaine 5% Patch 1 PATCH TOPICAL ×2 (08:17→21:26)
[2020-07-20] MEDS: cefTRIAXone 1,000 MG in sodium chloride 0.9% (plus) 50 ML 100 MG IV (08:17)
[2020-07-20] MEDS: FUROsemide 40 mg Tablet PO ×2 (08:18→17:12)
[2020-07-20] MEDS: sotalol 80 mg Tablet 120 MG PO ×2 (08:18→21:24)
[2020-07-20] MEDS: nystatin powder 15 gm Btl 1 APPLIC TOPICAL ×2 (08:18→17:12)
[2020-07-20] MEDS: TRAMadol 50 mg Tablet PO ×2 (10:46→18:49)
[2020-07-20] MEDS: capsaicin 0.025% cream 60 gm 1 APPLIC TOPICAL ×2 (10:47→18:48)
[2020-07-20] MEDS: albuterol 8 gm MDI 2 PUFF INHALATION (11:25)
[2020-07-20] MEDS: HYDROcodone-acetaminophen 7.5-325 mg Tablet 1 TAB PO (13:14)
[2020-07-20] MEDS: warfarin 10 mg Tablet PO (13:14)
--- NOTE | 2020-07-20 21:15 | P.PN_ITS ---
Subjective Subjective: Interval history: is doing fine.His SOB has improved,has no temperature spike.Is tolerating BIPAP well at night. Oter vitals and labs have been reviewed. Medications: Reviewed: Yes Vitals/I&O/Wt Last Vital Signs Temp 98.6 F 07/20/20 19:04 Pulse 71 07/20/20 19:04 Resp 18 07/20/20 19:04 BP 113/59 07/20/20 19:04 Pulse Ox 97 07/20/20 19:04 07/20/20 07/20/20 07/20/20 06:59 14:59 22:59 Intake Total 1080 / 1080 240 / 1320 Output Total 550 / 1915 1050 / 1050 200 / 1250 Balance -550 / -105 30 / 30 40 / 70 Physical Exam Const: COMMON NORMALS: patient oriented x3 HENMT: COMMON NORMALS: normocephalic and atraumatic HEAD & SCALP: normocephalic and atraumatic Chest: CHEST: Yes Symmetrical chest wall rise Resp: COMMON NORMALS: normal respiratory effort, No retractions, No use of accessory muscles and clear to auscultation bilaterally EFFORT & INSPECTION: Yes symmetric chest movement AUSCULTATION: clear to auscultation bilaterally Cardio: COMMON NORMALS: regular rate, regular rhythm, S1 normal heart sound present, S2 normal heart sound present, No gallops present (Cardio), No murmurs present (Cardio), No rub (Cardio) and Peripheral pulses 2+ throughout RATE: regular rate RHYTHM: regular rhythm HEART SOUNDS: S1 normal heart sound present and S2 normal heart sound present PERIPHERAL PULSES: Peripheral pulses 2+ throughout GI: COMMON NORMALS: Normal to inspection, nondistended, normoactive bowel sounds present, Soft to palpation, non-tender, No hepatosplenomegaly present and no masses AUSCULTATION: Yes normoactive bowel sounds PALPATION: Yes Soft to palpation and Yes No hepatosplenomegaly present RECTAL EXAM: Yes deferred Extremity: COMMON NORMALS: no clubbing, cyanosis or edema and no pedal edema Neuro: COMMON NORMALS: patient oriented x3 Urinary Catheter Management^: Willingham: Cath Placed During This Visit: yes, but has since been removed by the nurse Reason for Continuing Indwelling Catheter: Decision to DC Catheter Urinary Catheter Date of Insertion: 07/15/20 Date Urinary Catheter Removed: 07/19/20 Time Urinary Catheter Discontinued: 20:30 Data : 07/20/20 04:57 07/20/20 04:57 Micro: Microbiology 07/14/20 20:00 Blood Culture - Final Blood NO GROWTH AFTER 5 DAYS A&P Assessment and plan (1) Acute and chronic respiratory failure with hypercapnia: Multifactorial, related to obesity hypoventilation syndrome, narcotic medications, DAWN, possible pneumonia Plan: -S/P Extubation -Continue nasal cannula, BiPAP as needed for shortness of breath, BiPAP during the night -Off Levophed -Lasix 40 mg p.o. daily -2D: echo cardiogram: diastolic dysfunction, normal EF, no significant wall motion abnormalities -D-dimer is elevated at 7, currently my suspicion for this pulmonary emboli is fairly low given he is on Coumadin, INR is 1.55, unfortunate patient is too large to fit through CT scan, is on Coumadin already, INR 1.60, pharmacy managing -Follow urine cultures, blood cultures sputum cultures all so far negative -Coumadin for DVT prophylaxis -Full code -pepcid for GI prophylaxis -Pulmonary team on consult -Rapid Covid negative, Covid PCR negative -I spoke to patient's daughter Plan for today, given persistent fevers, will change antibiotic coverage to vancomycin and Rocephin Status: Acute (2) Sepsis: -Etiology likely secondary UTI, panniculitis -Possibly could be having a UTI, urine cultures unremarkable, on Rocephin -Does have erythema over distal pannus, could be having panniculitis, -Blood Culture : Negative -Sputum Culture : Negative -Urine Bacterial Antigen :Negative -On Rocephin and vancomycin -Azithromycin was DC Status: Acute (3) Pneumonia: Status: Acute Qualifiers: Pneumonia type: due to unspecified organism Laterality: unspecified laterality Lung location: unspecified part of lung Qualified Code(s): J18.9 - Pneumonia, unspecified organism (4) Morbid obesity with BMI of 50.0-59.9, adult: Status: Chronic (5) Hypertension: Status: Chronic Qualifiers: Hypertension type: essential hypertension Qualified Code(s): I10 - Essential (primary) hypertension (6) Urinary tract infection: Status: Acute (7) Panniculitis: Status: Acute (8) NSTEMI (non-ST elevated myocardial infarction): -Minimally elevated troponin, EKG no acute ST-T wave changes -Likely supply demand ischemia from acute respiratory failure -Aspirin, statin - 1-Normal left ventricular cavity size. Normal left ventricular systolic function. Left ventricular ejection fraction is estimated at 61 %. Grade II/IV diastolic dysfunction, moderately elevated filling pressures. 2-No significant valve abnormalities. 3-There is no pericardial effusion. 4-Pulmonary artery systolic pressure is within normal limits. 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 Additional A&P Information Severe back pain: Continue Toradol, Ultram, IcyHot, Aspercreme if this does not suffice, will place patient back on a lower dose of hydrocodone Full code Attestations Medical Necessity Statement*: Patient needs to be in hospital for the management R/F 2/2 PNA Coding Level of Care Code Acute Disk Sander for g Fwd Diagnoses Acute and chronic respiratory failure with hypercapnia J96.22 Sepsis A41.9 Pneumonia J18.9 Pneumonia type: due to unspecified organism Laterality: unspecified laterality Lung location: unspecified part of lung Morbid obesity with BMI of 50.0-59.9, adult E66.01; Z68.43 Hypertension I10 Hypertension type: essential hypertension Urinary tract infection N39.0 Panniculitis M79.3 NSTEMI (non-ST elevated myocardial infarction) I21.4 Atrial fibrillation I48.91 Atrial fibrillation type: unspecified Diabetes mellitus, type II E11.9; Z79.4 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
[2020-07-21] VITALS (12 sets, daily range): BP systolic 103–168; BP diastolic 54–105; PULSE 63–78; RESP 17–20; TEMP 36.6–36.9; O2SAT 86–97
[2020-07-21] MEDS: famotidine 20 mg Tablet PO ×2 (02:28→15:49)
[2020-07-21] MEDS: HYDROcodone-acetaminophen 7.5-325 mg Tablet 1 TAB PO ×2 (03:37→15:49)
[2020-07-21] MEDS: capsaicin 0.025% cream 60 gm 1 APPLIC TOPICAL (04:23)
[2020-07-21] MEDS: lisinopril 10 mg Tablet PO (06:29)
[2020-07-21 06:52] LABS: INR 1.66 (0.8-1.2)
[2020-07-21 07:07] LABS: NT Pro B Type Natriuretic Pept 1017 pg/mL (0-125); Procalcitonin 0.93 ng/mL (0-0.5)
[2020-07-21 07:18] LABS: Creatine Phosphokinase 280 U/L (39-308)
[2020-07-21] MEDS: FUROsemide 40 mg Tablet PO ×2 (08:03→17:38)
[2020-07-21] MEDS: lidocaine 5% Patch 1 PATCH TOPICAL (08:03)
[2020-07-21] MEDS: nystatin powder 15 gm Btl 1 APPLIC TOPICAL ×2 (08:03→17:39)
[2020-07-21] MEDS: sotalol 80 mg Tablet 120 MG PO ×2 (08:03→17:38)
--- NOTE | 2020-07-21 10:43 | P.DS_ITS ---
Discharge Providers Date of Admission: 07/15/20 01:11 Date of Discharge: July 21, 2020 Attending Provider at Admission: Katelyn Hamm MD Attending Provider at Discharge: Bertrand Galicia MD Diagnoses at Discharge Discharge Diagnosis (1) Acute and chronic respiratory failure with hypercapnia: Status: Chronic (2) Sepsis: Status: Resolved (3) Pneumonia: Status: Resolved Qualifiers: Laterality: unspecified laterality Lung location: unspecified part of lung Pneumonia type: due to unspecified organism Qualified Code(s): J18.9 - Pneumonia, unspecified organism (4) Morbid obesity with BMI of 50.0-59.9, adult: Status: Chronic (5) Hypertension: Status: Chronic Qualifiers: Hypertension type: essential hypertension Qualified Code(s): I10 - Essential (primary) hypertension (6) Urinary tract infection: Status: Acute (7) Panniculitis: Status: Resolved (8) NSTEMI (non-ST elevated myocardial infarction): Status: Resolved (9) Atrial fibrillation: Status: Chronic Qualifiers: Atrial fibrillation type: unspecified Qualified Code(s): I48.91 - Unspecified atrial fibrillation (10) Diabetes mellitus, type II: Status: Chronic Qualifiers: Diabetes mellitus complication status: without complication Diabetes mellitus superintendent terminal insulin use: with superintendent terminal use Qualified Code(s): E11.9 - Type 2 diabetes mellitus without complications; 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 who presented to the emergency room with chief complaint of shortness of breath and recurrent falls. He had been seen in an outside hospital earlier in the day after a fall and was discharged home. He had another fall and when EMS came out this time they noted that he was hypoxic. They reported his oxygen saturation being 44% on room air. He was put on a nonrebreather and transport. On arrival here oxygen saturation was 96% on the nonrebreather. He was febrile and blood pressure was in the 90s systolic. Heart rate was in the 70s. ABG showed 7.2 7/66/159. FiO2 was decreased and he was put on BiPAP. Chest x-ray was limited by body habitus but appeared to show infiltrate. Rapid Covid test was negative. A CT of the head did not show any acute intracranial abnormalities. Additional CT imaging was not able to be done due to body habitus.He was admitted for the management of Ac on chronic hypoxic hypercapnic r/f 2/2 Pneumonia.Hospital course was complicated and he was intubated and placed on mechanical ventilation for r/f management. Eventually he was extubated and was placed on BIPAP at night as well as oxygen via NC during day time.He qualified for 3 LS Oxygen via NC at the time of discharge.He will continue to use CPAP at night and will follow with as outpatient for further management and likely for transition to BIPAP.He was on broad spectrum Abx sepis 2/2 PNA / UTI possible panniculitis. Blood Culture : Negative. Sputum Culture : Negative . Urine Bacterial Antigen :Negative he was On Rocephin, Azithromycin and vancomycin.He was discharged on Levofloxacin po to complete the ABx course. The patient was started on lasix 40 mg po daily and was incraesed to lasix 40 mg q12 h daily for his bilateral lower extremity edema likely secondary to right heart failure in the setting of super morbid obesity likely pulmonary hypertension. He responded well to the above medical management and is being discharged in stable condition.He will follow his PCP as well as his plan manager as outpatient. Physical Exam Const: COMMON NORMALS: patient oriented x3 HENMT: COMMON NORMALS: normocephalic and atraumatic HEAD & SCALP: normocephalic and atraumatic Chest: CHEST: Yes Symmetrical chest wall rise Resp: COMMON NORMALS: normal respiratory effort and clear to auscultation bilaterally EFFORT & INSPECTION: Yes symmetric chest movement AUSCULTATION: clear to auscultation bilaterally Cardio: COMMON NORMALS: regular rate, regular rhythm, S1 normal heart sound present, S2 normal heart sound present, No gallops present (Cardio), No murmurs present (Cardio), No rub (Cardio) and Peripheral pulses 2+ throughout RATE: regular rate RHYTHM: regular rhythm HEART SOUNDS: S1 normal heart sound present and S2 normal heart sound present PERIPHERAL PULSES: Peripheral pulses 2+ throughout GI: COMMON NORMALS: Normal to inspection, nondistended, normoactive bowel sounds present, Soft to palpation, non-tender, No hepatosplenomegaly present and no masses AUSCULTATION: Yes normoactive bowel sounds PALPATION: Yes Soft to palpation and Yes No hepatosplenomegaly present RECTAL EXAM: Yes deferred Extremity: NARRATIVE EXTREMITY EXAM: Trace B/L L/E Pitting edema Neuro: COMMON NORMALS: patient oriented x3 Urinary Catheter Management^: Willingham: Cath Placed During This Visit: yes, but has since been removed by the nurse Reason for Continuing Indwelling Catheter: Decision to DC Catheter Urinary Catheter Date of Insertion: 07/15/20 Date Urinary Catheter Removed: 07/19/20 Time Urinary Catheter Discontinued: 20:30 Discharge Data Data Completed and Pending: Completed Studies During Hospitalization Category Date Time Status CT head wo con* 7 0450 Urgent Cat Scan 07/14/20 19:18 Completed XR chest 1V edna ble [id number] Routine Exams 07/16/20 07:00 Completed XR chest 1V edna ble [id number] Routine Exams 07/19/20 07:00 Completed XR chest 1V edna ble [id number] Stat Exams 07/15/20 13:43 Completed XR chest 1V edna ble [id number] Urgent Exams 07/14/20 19:18 Completed CV echo complete* [id number] Routine Ultrasound 07/15/20 09:37 Completed Labs from last 24 hours 07/21/20 07/21/20 06:05 06:05 PT 20.20 H INR 1.66 H Creatine Kinase 280 NT-Pro-B Natriuret Pep 1017 H Procalcitonin 0.93 H Vitals: Last Vital Signs Temp 97.8 F 07/21/20 07:40 Pulse 78 07/21/20 08:40 Resp 17 07/21/20 08:40 BP 106/61 07/21/20 07:40 Pulse Ox 95 07/21/20 08:40 Discharge Plan Discharge Patient Disposition: Home Condition: Stable Prescriptions: New Lasix 40 mg tablet 40 mg PO BID Qty: 60 RF: 0 levofloxacin 500 mg tablet 500 mg PO DAILY 5 Days RF: 0 Continued metformin 500 mg tablet 500 mg PO DAILY@0500 RF: 0 hydrocodone-acetaminophen 10-325 mg tablet 1 tab PO Q6H PRN (Reason: Pain) RF: 0 sotalol 120 mg tablet 120 mg PO Q12H RF: 0 lisinopril 10 mg tablet 10 mg PO DAILY@0500 RF: 0 warfarin 5 mg tablet 5 mg PO DAILY@0500 RF: 0 Discontinued cephalexin 500 mg Capsule 500 mg PO TID RF: 0 Discharge Orders: Discharge Order (Routine); Ordered 07/21/20 Ordered By: Bertrand Galicia Other Ambulatory Orders: DME: BIPAP (Order) Location: None Selected Ordered By: Bertrand Galicia DME: Oxygen (Order) Location: None Selected Ordered By: Bertrand Galicia DME: Walker (Order) Location: None Selected Ordered By: Bertrand Galicia Referrals: Ashu Patel MD [Physician] - 07/29/20 10:30 am Discharge Diet: Low Salt Discharge Activity: Increase activity as tolerated Patient Instructions: Furosemide (By mouth), Levofloxacin (By mouth), Myocardial Infarction (GEN), Urinary Tract Infection in Men (GEN), Sepsis (GEN), Using Oxygen at Home Discharge Attestations Time Spent in Discharge Care*: greater than 30 min Specific Discharge Activities: educating patient, educating and/or supporting family/caregiver, discussing with pcp/other providers, discussing with case preparer and liner/social workers/dc planners, documenting/other paperwork and evaluating patient/reviewing data Status at Discharge: Cognitive status at discharge: cognitively intact , Behavioral status at discharge: cooperative , Functional status at discharge: independent ambulation Overall status at discharge: patient is back to baseline Quality Metrics Clinical Quality Measures During this hospital stay, did patient experience: None Coding Level of Care Code Acute Communications Tech for miriam Hdz Diagnoses Acute and chronic respiratory failure with hypercapnia J96.22 Sepsis A41.9 Pneumonia J18.9 Laterality: unspecified laterality Lung location: unspecified part of lung Pneumonia type: due to unspecified organism Morbid obesity with BMI of 50.0-59.9, adult E66.01; Z68.43 Hypertension I10 Hypertension type: essential hypertension Urinary tract infection N39.0 Panniculitis M79.3 NSTEMI (non-ST elevated myocardial infarction) I21.4 Atrial fibrillation I48.91 Atrial fibrillation type: unspecified Diabetes mellitus, type II E11.9; Z79.4 Diabetes mellitus complication status: without complication Diabetes mellitus detention insulin use: with superintendent terminal use
[2020-07-21] MEDS: warfarin 10 mg Tablet PO (11:14)
[2020-07-21] MEDS: warfarin 5 mg Tablet PO (11:14)
--- NOTE | 2020-07-21 15:44 | PC.OT ---
OT NOTE: OT TREATMENT WITHHELD TODAY DUE TO PATIENT SCHEDULED DISCHARGE
--- NOTE | 2020-07-21 15:54 | PC.NURSE ---
We had just walked back from taking a shower. bp was high 168/105 I reported this to the nurse. She was still in the room. She told me to wait and retake after he relaxes for a few minutes.
== END 2020-07-21 18:27 | disposition home or self-care (01) | DRG 871 ==
LOC: ER 18:57 → CSU 07-15 02:01 → ICU 07-15 12:22 → MEDSURG 07-19 20:11
PROVIDERS: Family Medicine; Psychiatry & Neurology Psychiatry; Admitting Provider Hospitalist; Emergency Provider Family Medicine; Visit Provider Internal Medicine
DX: A41.9 Sepsis, unspecified organism (principal); J18.9 Pneumonia, unspecified organism; J96.22 Acute and chronic respiratory failure with hypercapnia; I21.A1 Myocardial infarction type 2; N39.0 Urinary tract infection, site not specified; E66.2 Morbid (severe) obesity with alveolar hypoventilation; Z68.43 Body mass index [BMI] 50.0-59.9, adult; E87.2 Acidosis; R29.6 Repeated falls; I48.91 Unspecified atrial fibrillation; E11.9 Type 2 diabetes mellitus without complications; K21.9 Gastro-esophageal reflux disease without esophagitis; Z87.11 Personal history of peptic ulcer disease; I10 Essential (primary) hypertension; Z87.891 Personal history of nicotine dependence; Z79.01 Long term (current) use of anticoagulants; I95.9 Hypotension, unspecified; M79.3 Panniculitis, unspecified; Z79.891 Long term (current) use of opiate analgesic
CPT/HCPCS: 12345; 36415; 36416; 36600; 51702; 70450; 71045; 80051; 80053; 80202; 81001; 82330; 82550; 82728; 82803; 82805; 82962; 83036; 83605; 83615; 83735; 83880; 84100; 84145; 84484; 85025; 85378; 85384; 85610; 86140; 86403; 87040; 87070; 87086; 87205; 87426; 87635; 87804; 93005; 93306; 94002; 94003; 94640; 94660; 94664; 94760; 94762; 94799; 96372; 97110; 97116; 97161; 97165; 97167; 97530; 97535; 99283; J0456; J0692; J0696; J1650; J1940; J2250; J2370; J2543; J2704; J3010; J3370; J3490; J3535; J7040; J7050

== ENCOUNTER → 2020-08-02 14:23 | Outpatient (BNVA) | payer MEDICARE, SELFPAY | PROVIDERS: PCP Family Medicine; Visit Provider Internal Medicine Critical Care Medicine | DX: R21 Rash and other nonspecific skin eruption (principal); G89.29 Other chronic pain; J96.12 Chronic respiratory failure with hypercapnia; G47.10 Hypersomnia, unspecified; E87.2 Acidosis; Z09 Encounter for follow-up examination after completed treatment for conditions other than malignant neoplasm; E66.9 Obesity, unspecified | CPT/HCPCS: 80048 ==

== ENCOUNTER → 2020-08-06 08:19 | Outpatient (BNVA) | payer MEDICARE, SELFPAY | PROVIDERS: PCP Family Medicine; Visit Provider Internal Medicine Critical Care Medicine | DX: Z01.812 Encounter for preprocedural laboratory examination (principal); J96.12 Chronic respiratory failure with hypercapnia | CPT/HCPCS: 87635 ==

== ENCOUNTER → 2020-08-20 08:17 | Outpatient (BNVA) | payer MEDICARE, SELFPAY | PROVIDERS: PCP Family Medicine; Visit Provider Internal Medicine Critical Care Medicine | DX: Z01.812 Encounter for preprocedural laboratory examination (principal); J96.12 Chronic respiratory failure with hypercapnia | CPT/HCPCS: 87635 ==

== ENCOUNTER 2020-08-25 10:55 | Outpatient (CLI) | payer MEDICARE, SELFPAY ==
--- NOTE | 2020-08-25 13:55 | PFTS_ITS ---
Date of Study:08/25/20 Date of Dictation: MECHANICS: Forced vital capacity (FVC) is reduced. Forced expiratory volume in one second (FEV1) is reduced. FEV1/FVC is normal. FLOW VOLUME LOOP: Narrow. LUNG VOLUMES: Not performed DIFFUSING CAPACITY FOR CARBON MONOXIDE: Mild reduced INTERPRETATION: The postbronchodilator spirometry is consistent with severe restriction. There is no significant postbronchodilator response. Lung volumes are not measured. Gas exchange (DLCO) is mildly reduced. MTDD
== END 2020-08-25 10:56 | disposition home or self-care (01) ==
LOC: RT 10:58
PROVIDERS: PCP Family Medicine; Visit Provider Internal Medicine Critical Care Medicine
DX: J96.12 Chronic respiratory failure with hypercapnia (principal)
CPT/HCPCS: 94060; 94729; J7611

== ENCOUNTER 2020-10-16 19:41 | Inpatient (IN) | payer MEDICARE, SELFPAY ==
[2020-10-16] VITALS (26 sets, daily range): BP systolic 114–176; BP diastolic 64–93; PULSE 51–146; RESP 12–30; TEMP 36.1–36.8; O2SAT 89–100; BMI 54.8; BMI 60.6
--- NOTE | 2020-10-16 19:48 | XRR_ITS ---
PROCEDURE INFORMATION: Exam: XR Chest Exam date and time: 10/16/2020 8:03 PM Age: 65 years old Clinical indication: Dyspnea; Additional info: SOB TECHNIQUE: Imaging protocol: XR of the chest. Views: 1 view. COMPARISON: CR XR chest 1V portable [id number] 07/19/2020 4:58 AM FINDINGS: Tubes, catheters and devices: Hardware at right humeral head. Lungs: Stable mild linear densities at left lung base. Pleural spaces: New small or moderate right pleural fluid. Heart/Mediastinum: Stable prominence of cardiomediastinal silhouette. Bones/joints: No acute findings. XR/XR chest 1V portable [id number] IMPRESSION: New right pleural fluid
--- NOTE | 2020-10-16 19:48 | ECG_ITS ---
[facility] Test Date: 2020-10-16 Pat Name: Nhan Sol Department: Room: Gender: Male [employer]: : 1955 Requested By: Acacia Caal Order Number: [id number] Sammie MD: Nuris Zuniga M.D. Measurements Intervals [place] Rate: 58 P: 28 SC: 202 QRS: 81 QRSD: 116 T: -17 QT: 429 QTc: 425 Interpretive Statements SINUS BRADYCARDIA POSSIBLE INFERIOR MYOCARDIAL INFARCTION [30 ms Q WAVE IN II/aVF], OF INDETERMINATE AGE INTERPRETATION BASED ON A DEFAULT AGE OF 40 YEARS Compared to ECG 07/15/2020 10:34:16 Myocardial infarct finding now present Sinus rhythm no longer present Intraventricular conduction delay no longer present Electronically Signed On 10-17-2020 10:29:46 CDT by Nuris Zuniga M.D. [email or web address].[email or web address]/[id number]
[2020-10-16 20:25] LABS: Basophils % 0.6 %; Eosinophils # 0.3 10^3/uL (0.0-0.8); Eosinophils % 6.4 %; Hematocrit 38.1 % (42.0-52.0); Lymphocytes # 1.6 10^3/uL (0.8-4.8); Lymphocytes % 30.8 %; Mean Corpuscular HGB Conc 28.9 g/dL (30.0-36.0); Mean Corpuscular Hemoglobin 29.7 pg (28.0-34.0); Mean Platelet Volume 10.7 fL (7.4-10.4); Monocytes # 0.6 10^3/uL (0.2-0.9); Neutrophils # 2.64 10^3/uL (1.8-7.7); Nucleated Red Blood Cells % 0 %; Platelet Count 207 10^3/cmm (130-400); Red Cell Distribution Width 15.7 % (12.1-15.1); White Blood Count 5.2 10^3/uL (4.0-10.0)
[2020-10-16 20:26] LABS: ABG PH Result 7.27 (7.35-7.45); Arterial Blood Gas Hematocrit 36.1 % (42-52); Base Excess ABG 14.3 mmol/L (-2.0-2.0); Blood Gas Allen Test Pos; Blood Gas Sample Site Radial, right; Blood Gas Sample Type Arterial; Carboxyhemoglobin 1.5 %THgb (0.4-20.1); HGB O2 Sat 96.2 % (95-100); Methemoglobin 0.6 % (0.4-1.5); Oxygen Device NC; Total Hemoglobin 11.8 g/dL (14-18)
[2020-10-16 20:27] LABS: ABG PCO2 97.1 mmHg (35-45)
[2020-10-16] MEDS: ipratropium-albuterol 3 mL Neb INHALATION (20:35)
--- NOTE | 2020-10-16 20:44 | W.ED.SOB ---
HPI - SOB/Dyspnea General: Chief Complaint: Shortness of Breath/Dyspnea Stated Complaint: RESPIRATORY DISTRESS Time Seen by Provider: 10/16/20 19:44 Source: patient and EMS Mode of arrival: EMS Limitations: no limitations History of Present Illness: HPI Narrative: 65-year-old male with history of COPD and morbid obesity. Patient had increasing shortness of breath at home. EMS given albuterol treatments in route. He is on 2 L at baseline at home has been requiring 4 to 5 L here. EMS states when he first arrived him he was having some altered mental status. He does have a history of hypercapnia as well but here he is now awake and alert answering my questions appropriately. Denies any fever denies any cough. MD elicited complaint: shortness of breath Associated symptoms: Deny abdominal pain, chest pain, fever(s), nausea or vomiting Review of Systems Const: Denies: fever(s), chills, body aches or change in appetite Eyes: Denies: blurry vision or eye discomfort ENMT: Denies: throat pain or dental pain Card: Denies: chest pain Resp: Reports: dyspnea GI: Denies: abdominal pain, nausea, vomiting or diarrhea : Denies: dysuria Musc: Denies: neck pain or back pain Skin/Breast: Denies: rash Neuro: Denies: headache(s) Psych: Denies: depression Laureano/Lymph: Denies: easy bruising All/Imm: Denies: urticaria PFSH ED PFSH: Medical History Acute and chronic respiratory failure with hypercapnia Acute respiratory failure Atrial fibrillation Chronic anticoagulation Diabetes mellitus, type II GERD (gastroesophageal reflux disease) History of gastric ulcer with perforation Hypertension Morbid obesity with BMI of 50.0-59.9, adult NSTEMI (non-ST elevated myocardial infarction) Panniculitis Pneumonia Recurrent falls Respiratory acidosis Sepsis Urinary tract infection Surgical History History of esophagogastroduodenoscopy History of exploratory laparotomy for perforated gastric ulcer Family History Father Cancer lung Mother Asthma CAD (coronary artery disease) Sister Cerebral aneurysm Social History Smoking and tobacco status: former smoker Quit status (tobacco): has quit using tobacco Year quit tobacco: 1978 - 1PPD x 7 Years Second hand smoke exposure: Yes Smoking risk assessment/counseling performed?: No Alcohol intake: current Alcohol intake frequency: few times a week Alcohol type: beer Counseling given: No Counseling given: No Lives independently: Yes Household members: family Marital status: Current occupational status: disabled Previous occupational history: history of working in [employer] History of recent travel: No Current gender identity: Male Physical Exam Const: COMMON NORMALS: patient oriented x3 GENERAL APPEARANCE: in distress NUTRITIONAL APPEARANCE: obese morbidly obese HENMT: COMMON NORMALS: normocephalic and atraumatic HEAD & SCALP: normocephalic and atraumatic Eye: COMMON NORMALS: Equal, round and reactive pupils present and EOMs intact bilaterally PUPIL: Yes Equal, round and reactive pupils present Neck/C-Spine: COMMON NORMALS: full ROM and supple Chest: COMMONS NORMALS: normal inspection of the chest and normal palpation of entire chest wall Resp: COMMON NORMALS: No retractions and No use of accessory muscles EFFORT & INSPECTION: Yes tachypneic AUSCULTATION: diminished lung sounds Cardio: COMMON NORMALS: regular rate, regular rhythm and No murmurs present (Cardio) RATE: regular rate RHYTHM: regular rhythm GI: COMMON NORMALS: Normal to inspection, nondistended, normoactive bowel sounds present, Soft to palpation, non-tender and no masses PALPATION: Yes Soft to palpation Extremity: COMMON NORMALS: normal to inspection and full ROM Neuro: COMMON NORMALS: patient oriented x3, moves all extremities and no focal motor deficits Psych: COMMON NORMALS: mental status grossly normal, Normal thought process present and cooperative THOUGHT PROCESS: Normal thought process present Skin: COMMON NORMALS: no rashes or lesions noted and no wounds GENERAL SKIN EXAM: no rashes or lesions noted Course Vital Signs: Vital signs: Vital Signs Temperature 98.3 F 10/16/20 20:45 Pulse Rate 55 L 10/16/20 20:49 Respiratory Rate 12 10/16/20 20:45 Blood Pressure 140/79 10/16/20 20:45 Pulse Oximetry 96 10/16/20 20:49 MDM - SOB/Dyspnea MDM Narrative: Medical decision making narrative: 32 presents here with hypercapnia along with COPD with acute exacerbation. Patient's hypercapnia is improving here on BiPAP and he is awake alert able answer all my questions. He has no signs of pneumonia or pulmonary [place]. I spoke to hospitalist will admit to the ICU and continue BiPAP. Lab Data: Labs: Lab Results 10/16/20 10/16/20 10/16/20 Range/Units 20:10 20:10 20:10 WBC 5.2 (4.0-10.0) 10^3/ uL RBC 3.70 L (4.1-5.3) 10^6/u L Hgb 11.0 L (11.7-16.6) g/dL Hct 38.1 L (42.0-52.0) % MCV 103.0 H (80-94) fL MCH 29.7 (28.0-34.0) pg MCHC 28.9 L (30.0-36.0) g/dL RDW 15.7 H (12.1-15.1) % Plt Count 207 (130-400) 10^3/c mm MPV 10.7 H (7.4-10.4) fL Neut % (Auto) 51.0 % Lymph % (Auto) 30.8 % Rankin % (Auto) 11.0 % Eos % (Auto) 6.4 % Baso % (Auto) 0.6 % Neut # (Auto) 2.64 (1.8-7.7) 10^3/u L Lymph # (Auto) 1.6 (0.8-4.8) 10^3/u L Rankin # (Auto) 0.6 (0.2-0.9) 10^3/u L Eos # (Auto) 0.3 (0.0-0.8) 10^3/u L Baso # (Auto) 0.0 (0.0-0.1) 10^3/u L Nucleated RBC % (a uto) 0 % Nucleated RBCs # 0.0 /100WBC PT 15.60 H (12.1-14.9) SECO NDS INR 1.20 (0.8-1.2) Specimen Type Sample Site ABG pH (7.35-7.45) ABG pCO2 (35-45) mmHg ABG pO2 (80.0-100.0) mmH g ABG HCO3 (22-26) mmol/L ABG Base Excess (-2.0-2.0) mmol/ L Ronald Test Hematocrit (42-52) % Hgb O2 Saturation (95-100) % Carboxyhemoglobin (0.4-20.1) %THgb Methemoglobin (0.4-1.5) % Total Hemoglobin (14-18) g/dL O2 Delivery Device O2 Liters/Min % FiO2 % Cyber Defense Incident Responder ID Sodium 138 (136-145) mmol/L Potassium 4.6 (3.5-5.1) mmol/L Chloride 92 L (98-107) mmol/L Carbon Dioxide 41 H (22-29) mmol/L Anion Gap 9.6 (5-19) BUN 11 (8-23) mg/dL Creatinine 0.5 L (0.7-1.2) mg/dL GFR Calculation 167.9 H (90-130) mL/min Glucose 154 H (65-115) mg/dL Calculated Osmolal ity 288 (285-295) mOsm/k g Calcium 8.8 (8.5-10.5) mg/dL Total Bilirubin 0.4 (0.15-1.2) mg/dL AST 28 (0-40) U/L ALT 14 (0-41) U/L Alkaline Phosphata se 78 (40-130) IU/L Troponin T Baselin e (0-15) ng/L NT-Pro-B Natriuret Pep 580 H (0-125) pg/mL Total Protein 6.6 (6.6-8.7) g/dL Albumin 3.7 (3.5-5.2) g/dL Globulin 2.9 (1.3-4.6) g/dL 10/16/20 10/16/20 10/16/20 Range/Units 20:10 20:18 21:25 WBC (4.0-10.0) 10^3/ uL RBC (4.1-5.3) 10^6/u L Hgb (11.7-16.6) g/dL Hct (42.0-52.0) % MCV (80-94) fL MCH (28.0-34.0) pg MCHC (30.0-36.0) g/dL RDW (12.1-15.1) % Plt Count (130-400) 10^3/c mm MPV (7.4-10.4) fL Neut % (Auto) % Lymph % (Auto) % Rankin % (Auto) % Eos % (Auto) % Baso % (Auto) % Neut # (Auto) (1.8-7.7) 10^3/u L Lymph # (Auto) (0.8-4.8) 10^3/u L Rankin # (Auto) (0.2-0.9) 10^3/u L Eos # (Auto) (0.0-0.8) 10^3/u L Baso # (Auto) (0.0-0.1) 10^3/u L Nucleated RBC % (a uto) % Nucleated RBCs # /100WBC PT (12.1-14.9) SECO NDS INR (0.8-1.2) Specimen Type Arterial Arterial Sample Site Radial, right Radial, right ABG pH 7.27 L 7.33 L (7.35-7.45) ABG pCO2 97.1 H* 82.3 H* (35-45) mmHg ABG pO2 108.0 H 69.9 L (80.0-100.0) mmH g ABG HCO3 45.0 H 43.7 H (22-26) mmol/L ABG Base Excess 14.3 H 14.4 H (-2.0-2.0) mmol/ L Ronald Test Pos Pos Hematocrit 36.1 L 35.8 L (42-52) % Hgb O2 Saturation 96.2 (95-100) % Carboxyhemoglobin 1.5 (0.4-20.1) %THgb Methemoglobin 0.6 (0.4-1.5) % Total Hemoglobin 11.8 L (14-18) g/dL O2 Delivery Device Nc Bipap O2 Liters/Min 4.0 % FiO2 36.0 35.0 % Cyber Defense Incident Responder ID [id number] [email or web address] Sodium (136-145) mmol/L Potassium (3.5-5.1) mmol/L Chloride (98-107) mmol/L Carbon Dioxide (22-29) mmol/L Anion Gap (5-19) BUN (8-23) mg/dL Creatinine (0.7-1.2) mg/dL GFR Calculation (90-130) mL/min Glucose (65-115) mg/dL Calculated Osmolal ity (285-295) mOsm/k g Calcium (8.5-10.5) mg/dL Total Bilirubin (0.15-1.2) mg/dL AST (0-40) U/L ALT (0-41) U/L Alkaline Phosphata se (40-130) IU/L Troponin T Baselin e 14 (0-15) ng/L NT-Pro-B Natriuret Pep (0-125) pg/mL Total Protein (6.6-8.7) g/dL Albumin (3.5-5.2) g/dL Globulin (1.3-4.6) g/dL Imaging Data^: CXR: Attestation: I personally reviewed and interpreted this imaging study as follows: My impression: no acute abnormality EKG Data^: EKG 1: Attestation: I personally reviewed and interpreted this EKG as follows: EKG Interpretation Date: 10/16/20 EKG interpretation time: 20:14 Interpretation: sinus akira hr [address] or t wave abnormalities qrs 116 qtc 427 Critical Care Time Critical Care Time: Critical Care Time: Yes Total Critical Care Time: 35 Attestation: This case had a high probability of a clinically significant, sudden, or life threatening deterioration of this patient's condition which required my full and direct attention, intervention and personal management. Discharge Plan Discharge Patient Disposition: Admitted As Inpatient Clinical Impression: Acute exacerbation of chronic obstructive airways disease, Chronic hypercapnic respiratory failure Condition: Stable Coding Level of Care Code ED Fixed Income Portfolio Manager for Chg Fwd Exam Comprehensive
[2020-10-16 21:19] LABS: Troponin(5th) Baseline 14 ng/L (0-15)
[2020-10-16 21:27] LABS: Alanine Aminotransferase 14 U/L (0-41); Albumin Level 3.7 g/dL (3.5-5.2); Alkaline Phosphatase 78 IU/L (40-130); Blood Urea Nitrogen 11 mg/dL (8-23); Calcium 8.8 mg/dL (8.5-10.5); Chloride 92 mmol/L (98-107); Globulin 2.9 g/dL (1.3-4.6); Glomerular Filtration Rate 167.9 mL/min (90-130); Glucose 154 mg/dL (65-115); NT Pro B Type Natriuretic Pept 580 pg/mL (0-125); Osmolality Calculated 288 mOsm/kg (285-295); Sodium 138 mmol/L (136-145); Total Bilirubin 0.4 mg/dL (0.15-1.2); Total Protein 6.6 g/dL (6.6-8.7)
[2020-10-16 21:31] LABS: Anion Gap 9.6 (5-19); Aspartate Amino Transferase 28 U/L (0-40); Potassium 4.6 mmol/L (3.5-5.1)
[2020-10-16 21:32] LABS: Carbon Dioxide 41 mmol/L (22-29)
[2020-10-16 21:37] LABS: ABG PH Result 7.33 (7.35-7.45); Arterial Blood Gas Hematocrit 35.8 % (42-52); Base Excess ABG 14.4 mmol/L (-2.0-2.0); Blood Gas Allen Test Pos; Blood Gas Sample Site Radial, right; Blood Gas Sample Type Arterial; HCO3 ABG 43.7 mmol/L (22-26); Oxygen Device BIPAP; PO2 ABG 69.9 mmHg (80.0-100.0)
[2020-10-16 21:38] LABS: ABG PCO2 82.3 mmHg (35-45)
--- NOTE | 2020-10-16 21:48 | ECG_ITS ---
[facility] Test Date: 2020-10-16 Pat Name: Nhan Sol Department: Room: Gender: Male Ops Analyst: : 1955 Requested By: Acacia Caal Order Number: [id number] Sammie MD: Nuris Zuniga M.D. Measurements Intervals [place] Rate: 50 P: -10 IN: 220 QRS: -22 QRSD: 109 T: 76 QT: 435 QTc: 397 Interpretive Statements SINUS BRADYCARDIA WITH FIRST DEGREE AV BLOCK BORDERLINE LEFT AXIS DEVIATION [QRS AXIS < -20] MODERATE ST DEPRESSION [0.05+ mV ST DEPRESSION] Compared to ECG 10/16/2020 20:14:47 First degree AV block now present ST (T wave) deviation now present Myocardial infarct finding no longer present Electronically Signed On 10-17-2020 10:50:38 CDT by Nuris Zuniga M.D. [id number]
--- NOTE | 2020-10-16 21:55 | P.HP_ITS ---
Providers/Chief Complaint Primary Care Provider: Robert Mustafa Chief Complaint: RESPIRATORY DISTRESS History of Present Illness Nhan Sol is a 65 year old male who has history of obesity hypoventilation syndrome, chronic hypoxic hypercarbic respiratory failure uses 2-3 L of oxygen [id number], morbid obesity, atrial fibrillation chronic anticoagulation presented today with chief plan of worsening shortness of breath. Patient is stating that his symptom has been worsening for last few weeks, he has been noticing dry cough, shortness of breath at rest and on exertion, endorsing orthopnea PND, weight gain and lower extremity swelling. He does not use any trilogy or CPAP at night. He has not noticed any fever. Den aime chest pain, sinus infection, discharge from eyes and nose. On review of previous records, it seems that he has not received his BiPAP yet and there is some question about his compliance with his medications, he takes Lasix 40 mg twice a day. Has follow-up with Dr. Patel pulmonary function test was done which showed severe restrictive pattern likely due to obesity. His previous admission was in July which was secondary to a fall due to severe hypoxia, he was treated with antibiotics for panniculitis. Review of Systems Const: Reports: chills, body aches, change in appetite and fatigue Eyes: Denies: change in vision ENMT: Denies: throat pain Card: Reports: swelling of feet/ankles, dyspnea on exertion and orthopnea Resp: Reports: dyspnea and non-productive cough GI: Denies: abdominal pain : Denies: flank pain Musc: Reports: muscle cramps Skin/Breast: Reports: lesions Neuro: Denies: headache(s) Psych: Denies: anxiety Endo: Denies: polyuria Laureano/Lymph: Denies: easy bruising All/Imm: Denies: urticaria Medications/Allergies Home Medications Medication Instructions Recorded Confirmed Last Taken Type hydrocodone-acetaminophen 1 tab PO Q6H PRN 07/14/20 08/02/20 07/14/20 History lisinopril 10 mg PO DAILY@0500 07/14/20 08/02/20 07/14/20 History metformin 500 mg PO DAILY@0500 07/14/20 08/02/20 07/14/20 History sotalol 120 mg PO Q12H 07/14/20 08/02/20 07/14/20 History warfarin 5 mg PO DAILY@0500 07/14/20 08/02/20 07/14/20 History furosemide [Lasix] 40 mg PO BID #60 tab 07/21/20 08/02/20 Unknown Rx hydrocodone 5 mg-acetaminophen 325 1 tab PO Q6H PRN 9 Days #36 tab 08/02/20 08/02/20 Unknown Rx mg tablet nystatin 100,000 unit/gram topical 1 applic TOPICAL BID #15 g 08/02/20 08/02/20 Unknown Rx powder Allergies Allergy/AdvReac Type Severity Reaction Status Date / Time tape Allergy Unknown Uncoded 08/02/20 13:22 PFSH Acute PFSH: Medical History Acute and chronic respiratory failure with hypercapnia Acute respiratory failure Atrial fibrillation Chronic anticoagulation Diabetes mellitus, type II GERD (gastroesophageal reflux disease) History of gastric ulcer with perforation Hypertension Morbid obesity with BMI of 50.0-59.9, adult NSTEMI (non-ST elevated myocardial infarction) Panniculitis Pneumonia Recurrent falls Respiratory acidosis Sepsis Urinary tract infection Surgical History History of esophagogastroduodenoscopy History of exploratory laparotomy for perforated gastric ulcer Family History Father Cancer lung Mother Asthma CAD (coronary artery disease) Sister Cerebral aneurysm Social History Smoking and tobacco status: former smoker Quit status (tobacco): has quit using tobacco Year quit tobacco: 1978 - PD x 7 Years Second hand smoke exposure: Yes Smoking risk assessment/counseling performed?: No Alcohol intake: current Alcohol intake frequency: few times a week Alcohol type: beer Counseling given: No Counseling given: No Lives independently: Yes Household members: family Marital status: Current occupational status: disabled Previous occupational history: history of working in [employer] History of recent travel: No Current gender identity: Male Vitals/I&O/Wt Last Vital Signs Temp 98.3 F 10/16/20 20:45 Pulse 55 L 10/16/20 20:49 Resp 12 10/16/20 20:45 BP 140/79 10/16/20 20:45 Pulse Ox 96 10/16/20 20:49 Weight last 48 hrs Weight 204.117 kg Physical Exam Narrative: EXAM NARRATIVE: middle-aged male, morbidly obese when I entered the room he was on BiPAP, his eyes were closed however arousable to verbal command He was able to mention above HPI Awake alert vented x3 GCS 15 however a bit lethargic and drowsy S1, S2 no murmur appreciated Signs of right-sided heart failure bilateral lower extremity 2+ pitting edema extending up to his abdominal wall Genital edema Chronic venous stasis dermatitis Abdomen distended central obesity bowel sounds sluggish Assisted bilateral breath sounds Patient did not complain of any chest pain EOMI, PERRLA No joint swelling Data : 10/16/20 20:10 10/16/20 20:10 A&P Assessment and plan (1) Acute exacerbation of chronic obstructive airways disease: Status: Acute (2) Obesity: Status: Acute (3) Hypersomnia: Status: Acute (4) Cor pulmonale: Status: Acute (5) Acute on chronic respiratory failure with hypoxia and hypercapnia: Status: Acute (6) Acute exacerbation of CHF (congestive heart failure): Status: Acute Additional A&P Information Acute hypoxic hypercapnic respiratory failure/COPD exacerbation He has underlying obesity hypoventilation syndrome His bicarb acute rises appropriate to his acute hypercapnia, Patient is currently doing well on BiPAP On arrival PaCO2 97 after BiPAP usage of 45 minutes it improved to 82.3 he is awake and alert able to protect airways Reportedly he is currently awaiting for BiPAP approval, uses 2 to 3 L of oxygen [id number], he is denying fever, sinusitis, We will request D-dimer to rule out PE We will keep him in ICU overnight, with BiPAP, as he is high risk for intubation Acute CHF exacerbation preserved ejection fraction/diastolic dysfunction Grade 2 diastolic dysfunction failure He has worsening of right-sided pleural effusion, clinically fluid overloaded If his bicarb is worsening/worsening alkalosis would recommend carbonic anhydrase inhibitor to offset alkalosis however acute rise seems to be appropriate to acute hypercapnia, for now I would use alternate days Bumex and acetazolamide combination Echo reviewed which was done on 07/15/2020 Obesity hypoventilation syndrome He seems BiPAP dependent for his severe BMI and hypoventilation, it is very important that he has BiPAP at home to avoid readmissions in the hospital and further worsening of his underlying pulmonary pathology, pulmonary function test revealed severe restrictive disease Full code Cardiac diet/consistent carb DVT prophylaxis not indicated currently he takes Coumadin, will use therapeutic dose of Lovenox tonight as he is subtherapeutic Attestations Medical Necessity Statement*: Anticipating stay in the hospital cross more than 2 midnights for acute hypoxic hypercapnic respiratory failure, obesity hypoventilation, congestive heart failure exacerbation Time Spent in Patient Care: 40mins Coding Level of Care Code Acute Independent Video Producer for g Fwd Diagnoses Acute exacerbation of chronic obstructive airways disease J44.1 Obesity E66.9 Hypersomnia G47.10 Cor pulmonale I27.81 Acute on chronic respiratory failure with hypoxia and hypercapnia J96.21; J96.22 Acute exacerbation of CHF (congestive heart failure) I50.9
[2020-10-16 23:28] LABS: D Dimer 0.56 ug/mIFEU (0-0.59)
[2020-10-16] MEDS: enoxaparin 100 mg/mL Syringe 150 MG SUBCUT (23:28)
[2020-10-17] VITALS (126 sets, daily range): BP systolic 112–186; BP diastolic 54–101; PULSE 51–150; RESP 12–36; TEMP 36.3–37.1; O2SAT 85–99; BMI 58.8
[2020-10-17] MEDS: acetaZOLAMIDE 250 mg Tablet PO (00:35)
--- NOTE | 2020-10-17 01:48 | ECG_ITS ---
[facility] Test Date: 2020-10-17 Pat Name: Nhan Sol Department: Room: [facility] Gender: Male Supervisor Mapping: : 1955 Requested By: Acacia Caal Order Number: [id number] Sammie MD: Nuris Zuniga M.D. Measurements Intervals [place] Rate: 59 P: 8 NH: 223 QRS: -36 QRSD: 108 T: 71 QT: 414 QTc: 410 Interpretive Statements SINUS BRADYCARDIA WITH FIRST DEGREE AV BLOCK MARKED LEFT AXIS DEVIATION [QRS AXIS < -30] PATTERN CONSISTENT WITH PULMONARY DISEASE MODERATE ST DEPRESSION [0.05+ mV ST DEPRESSION] Compared to ECG 10/16/2020 21:48:01 No significant changes Electronically Signed On 10-17-2020 10:49:04 CDT by Nuris Zuniga M.D. [id number]
[2020-10-17 04:39] LABS: INR 1.31 (0.8-1.2)
[2020-10-17 04:42] LABS: Anion Gap 8.3 (5-19); Blood Urea Nitrogen 10 mg/dL (8-23); Calcium 9.1 mg/dL (8.5-10.5); Carbon Dioxide 39 mmol/L (22-29); Chloride 94 mmol/L (98-107); Glomerular Filtration Rate 217.3 mL/min (90-130); Glucose 170 mg/dL (65-115); Osmolality Calculated 287 mOsm/kg (285-295); Potassium 4.3 mmol/L (3.5-5.1); Sodium 137 mmol/L (136-145)
[2020-10-17 05:15] LABS: Troponin 5 2HR 14.15 ng/L (0-15)
[2020-10-17 07:59] LABS: Glucose Point of Care 162 mg/dL (70-110)
[2020-10-17 08:15] LABS: Glucose Point of Care 158 mg/dL (70-110)
[2020-10-17] MEDS: ipratropium-albuterol 3 mL Neb INHALATION (08:44)
[2020-10-17] MEDS: warfarin 5 mg Tablet PO (09:39)
[2020-10-17] MEDS: lisinopril 10 mg Tablet PO (09:40)
[2020-10-17] MEDS: HYDROcodone-acetaminophen 5-325 mg Tablet 1 TAB PO ×3 (09:50→22:53)
[2020-10-17] MEDS: sotalol 80 mg Tablet 120 MG PO (12:11)
[2020-10-17] MEDS: enoxaparin 100 mg/mL Syringe 150 MG SUBCUT (12:11)
--- NOTE | 2020-10-17 13:40 | PC.NUTR ---
NUTRITION WEIGHT ASSESSMENT: Ht. 76 inches. Wt. 483.6 pounds. BMI of 58.9 kg/m2 indicates Morbid Obesity.
[2020-10-17] MEDS: nystatin powder 15 gm Btl 1 APPLIC TOPICAL ×2 (15:32→18:09)
[2020-10-17 16:44] LABS: Glucose Point of Care 140 mg/dL (70-110)
[2020-10-17 17:14] LABS: Glucose Point of Care 94 mg/dL (70-110)
--- NOTE | 2020-10-17 21:46 | P.PN_ITS ---
Subjective Subjective: Interval history: Patient seen earlier in the day and was somnolent but would arouse. Later in the day he was awake and off of BiPAP. He was quite talkative. He admits to not always taking his water pill. He also admits to taking in a lot of salty foods. Tolerates the oxygen but does not sleep well, frequently waking up thinking that something is wrong. He has remai sandra weak. Living with his brother. Vitals/I&O/Wt Last Vital Signs Temp 98.4 F 10/17/20 21:14 Pulse 64 10/17/20 21:14 Resp 19 H 10/17/20 21:14 BP 144/72 10/17/20 21:14 Pulse Ox 95 10/17/20 21:14 10/17/20 10/17/20 10/17/20 06:59 14:59 22:59 Intake Total 250 / 250 Output Total 550 / 550 Balance -550 / -550 250 / 250 Weight last 48 hrs Weight 219.34 kg Weight 226.07 kg Weight 204.117 kg Physical Exam Narrative: EXAM NARRATIVE: Awake and alert, super morbidly obese, oxygen tubing intact, has patches of dry skin with some flaking to both cheeks. Neck is large. Lungs without any wheezes noted. Cardiovascular exam reveals distant heart sounds. Abdomen is soft with positive bowel sounds, nontender. Groin with erythema including parts of the pannus. Pitting edema to tibial area not ed. 1+. Speech is clear, face is symmetric, moves all extremities. Data : 10/16/20 20:10 10/17/20 03:31 A&P Assessment and plan (1) Acute on chronic respiratory failure with hypoxia and hypercapnia: With respiratory acidosis. Recent PFTs showed restrictive pattern. Obesity hypoventilation and probably sleep apnea but I do not know that he has had a sleep study. He does not have noninvasive ventilation at home. Follows with Dr. Patel outpatient. Status: Acute (2) Obesity: Status: Chronic Qualifiers: Obesity type: due to excess calories Obesity classification: adult class 3 (BMI >= 40) Serious obesity comorbidity presence: with serious comorbidity Body mass index: BMI 50.0-59.9 Qualified Code(s): E66.01 - Morbid (severe) obesity due to excess calories; Z68.43 - Body mass index [BMI] 50.0- 59.9, adult (3) Atrial fibrillation: Status: Chronic Qualifiers: Atrial fibrillation type: longstanding persistent Qualified Code(s): I48.11 - Longstanding persistent atrial fibrillation (4) Chronic anticoagulation: With Coumadin, currently subtherapeutic INR Status: Chronic (5) Diabetes mellitus, type II: Status: Chronic Qualifiers: Diabetes mellitus ferry terminal supervisor insulin use: with fdc use Diabetes mellitus complication status: without complication Qualified Code(s): E11.9 - Type 2 diabetes mellitus without complications; Z79.4 - long term (current) use of insulin (6) On home oxygen therapy: Status: Chronic Additional A&P Information Macrocytic anemia Continue BiPAP with sleep, oxygen when awake Had planned on rechecking ABG but level of alertness is quite reassuring, will recheck in the morning Given acute decline and need for intubation quickly last hospital stay will monitor in the ICU today but anticipate transfer to floor tomorrow if he does okay Was started on Bumex and acetazolamide here, normally on Lasix dosing, monitor response to this treatment Breathing treatments if needed Continue home lisinopril Continue home sotalol Telemetry monitoring Resume Coumadin but will need treatment dose Lovenox in the interim with low INR currently, daily INR until therapeutic at which time Lovenox can be discontinued Insulin for diabetes, hold home Metformin PT evaluation Bridging Lovenox will provide appropriate VTE prophylaxis currently Need to look into options for home noninvasive ventilation, consider discussion with Dr. Patel who has seen him outpatient pending on clinical course Supportive care otherwise Plans discussed with patient and he was given an opportunity to ask questions Full code Attestations Medical Necessity Statement*: Requires ongoing inpatient stay for management of respiratory status. Last hospital stay required intubation within a day or so of admission due to persistent hypercapnia. Ends are as noted above. 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
[2020-10-17] MEDS: bumetanide 1 mg Tablet PO (22:52)
[2020-10-17] MEDS: enoxaparin 60 mg/0.6 mL Syringe 50 MG SUBCUT (23:43)
[2020-10-17] MEDS: enoxaparin 100 mg/mL Syringe SUBCUT (23:44)
[2020-10-18] VITALS (222 sets, daily range): BP systolic 81–131; BP diastolic 40–76; PULSE 52–90; RESP 13–37; TEMP 36.3–36.9; O2SAT 88–100; BMI 59.4
[2020-10-18] MEDS: lanolin oint 7 gm 1 APPLIC TOPICAL (03:05)
[2020-10-18 04:19] LABS: Basophils % 0.3 %; Eosinophils # 0.1 10^3/uL (0.0-0.8); Eosinophils % 1.9 %; Hemoglobin 10.9 g/dL (11.7-16.6); Lymphocytes # 1.7 10^3/uL (0.8-4.8); Lymphocytes % 24.7 %; Mean Corpuscular HGB Conc 30.3 g/dL (30.0-36.0); Mean Corpuscular Hemoglobin 30.2 pg (28.0-34.0); Mean Corpuscular Volume 99.7 fL (80-94); Mean Platelet Volume 10.8 fL (7.4-10.4); Monocytes # 0.8 10^3/uL (0.2-0.9); Neutrophils # 4.07 10^3/uL (1.8-7.7); Nucleated Red Blood Cells % 0 %; Platelet Count 231 10^3/cmm (130-400); Red Blood Count 3.61 10^6/uL (4.1-5.3); Red Cell Distribution Width 15.6 % (12.1-15.1); White Blood Count 6.7 10^3/uL (4.0-10.0)
[2020-10-18 04:30] LABS: INR 1.31 (0.8-1.2)
[2020-10-18 04:35] LABS: Blood Urea Nitrogen 16 mg/dL (8-23); Calcium 8.9 mg/dL (8.5-10.5); Carbon Dioxide 33 mmol/L (22-29); Chloride 98 mmol/L (98-107); Glomerular Filtration Rate 167.9 mL/min (90-130); Glucose 85 mg/dL (65-115); Osmolality Calculated 286 mOsm/kg (285-295); Sodium 138 mmol/L (136-145)
[2020-10-18 04:43] LABS: Anion Gap 11.2 (5-19); Potassium 4.2 mmol/L (3.5-5.1)
[2020-10-18 05:27] LABS: ABG PH Result 7.33 (7.35-7.45); Arterial Blood Gas Hematocrit 35.9 % (42-52); Base Excess ABG 9.2 mmol/L (-2.0-2.0); Blood Gas Allen Test Pos; Blood Gas Operator Identificat JB; Blood Gas Sample Site Radial, right; Blood Gas Sample Type Arterial; HCO3 ABG 37.4 mmol/L (22-26)
[2020-10-18 05:28] LABS: ABG PCO2 70.5 mmHg (35-45); Oxygen Device BIPAP
[2020-10-18 05:51] LABS: Glucose Point of Care 114 mg/dL (70-110)
[2020-10-18] MEDS: lisinopril 10 mg Tablet PO (05:51)
[2020-10-18] MEDS: warfarin 5 mg Tablet PO (05:51)
[2020-10-18] MEDS: HYDROcodone-acetaminophen 5-325 mg Tablet 1 TAB PO ×2 (05:52→20:09)
[2020-10-18 09:11] LABS: Glucose Point of Care 89 mg/dL (70-110)
[2020-10-18] MEDS: acetaZOLAMIDE 250 mg Tablet PO (09:17)
[2020-10-18] MEDS: nystatin powder 15 gm Btl 1 APPLIC TOPICAL ×2 (09:18→19:26)
[2020-10-18] MEDS: bumetanide 1 mg Tablet PO (09:18)
[2020-10-18 11:39] LABS: Glucose Point of Care 122 mg/dL (70-110)
[2020-10-18] MEDS: PARoxetine 20 mg Tablet PO (13:54)
[2020-10-18] MEDS: enoxaparin 60 mg/0.6 mL Syringe 50 MG SUBCUT (13:55)
[2020-10-18] MEDS: enoxaparin 100 mg/mL Syringe SUBCUT (13:55)
[2020-10-18] MEDS: sotalol 80 mg Tablet 120 MG PO ×2 (13:55→22:38)
--- NOTE | 2020-10-18 14:14 | P.PN_ITS ---
Subjective Subjective: Interval history: Patient was examined this morning, he is on 2 L, he tells me he is doing better, he tells me at home he lives by himself, but his brother helps him out, he saw Dr. Patel, who was helping him get a CPAP machine for home, but he needs to have a sleep study, multiple times he was not able to go for sleep study either due to inclement weather, but he tells me that over the last few weeks he has been feeling more weak, fatigued and tired, physical therapy has been out to his house to help him with strengthening deconditioning, but those services have been stopped, he started to develop increased weakness, fatigue, poor appetite, he also reported feeling down depressed and sad, denies suicidal or homicidal ideation. He tells me he wants to get better, so he can have bariatric surgery so he can lose weight. Vitals/I&O/Wt Last Vital Signs Temp 98.3 F 10/18/20 08:00 Pulse 65 10/18/20 13:00 Resp 23 H 10/18/20 13:00 BP 119/49 10/18/20 12:00 Pulse Ox 97 10/18/20 13:00 10/17/20 10/18/20 10/18/20 22:59 06:59 14:59 Output Total 800 / 800 800 / 800 Balance -800 / -550 -800 / -800 Weight last 48 hrs Weight 221.438 kg Weight 219.34 kg Weight 226.07 kg Weight 204.117 kg Physical Exam 2 Const: COMMON NORMALS: no acute distress and patient oriented x3 GENERAL APPEARANCE: cooperative Resp: COMMON NORMALS: normal respiratory effort, No retractions, No use of accessory muscles and clear to auscultation bilaterally AUSCULTATION: clear to auscultation bilaterally Cardio: COMMON NORMALS: regular rate, regular rhythm, S1 normal heart sound present, S2 normal heart sound present and No murmurs present (Cardio) RATE: regular rate RHYTHM: regular rhythm HEART SOUNDS: S1 normal heart sound present and S2 normal heart sound present GI: COMMON NORMALS: Normal to inspection, nondistended, normoactive bowel sounds present, Soft to palpation and non-tender PALPATION: Yes Soft to palpation OTHER: Obese abdomen, large pannus Extremity: COMMON NORMALS: capillary refill normal and no clubbing, cyanosis or edema NARRATIVE EXTREMITY EXAM: 1+ pitting edema Neuro: COMMON NORMALS: patient oriented x3, CN's II-XII intact bilaterally and moves all extremities Psych: COMMON NORMALS: mental status grossly normal Data : 10/18/20 02:35 10/18/20 02:35 A&P Assessment and plan (1) Acute on chronic respiratory failure with hypoxia and hypercapnia: Likely multifactorial from sleep apnea, CHF, obesity hypoventilation syndrome, right-sided heart failure With respiratory acidosis and hypercapnia. Recent PFTs showed restrictive pattern. He does not have noninvasive ventilation at home. Follows with Dr. Patel outpatient. Status: Acute (2) Obesity: Has been trying to get bariatric surgery Status: Chronic Qualifiers: Obesity type: due to excess calories Obesity classification: adult class 3 (BMI >= 40) Serious obesity comorbidity presence: with serious comorbidity Body mass index: BMI 50.0-59.9 Qualified Code(s): E66.01 - Morbid (severe) obesity due to excess calories; Z68.43 - Body mass index [BMI] 50.0- 59.9, adult (3) Atrial fibrillation: Status: Chronic Qualifiers: Atrial fibrillation type: longstanding persistent Qualified Code(s): I48.11 - Longstanding persistent atrial fibrillation (4) Chronic anticoagulation: With Coumadin, currently subtherapeutic INR Status: Chronic (5) Diabetes mellitus, type II: Status: Chronic Qualifiers: Diabetes mellitus intermodal dispatcher insulin use: with intermodal dispatcher use Diabetes mellitus complication status: without complication Qualified Code(s): E11.9 - Type 2 diabetes mellitus without complications; Z79.4 - nursing home (current) use of insulin (6) On home oxygen therapy: Status: Chronic Additional A&P Information Macrocytic anemia Continue BiPAP with sleep, oxygen when awake Increase Bumex to 1 mg every 24 hours, with metolazone. Monitor creatinine, monitor potassium, or urine output We will move out of ICU Breathing treatments if needed Continue home lisinopril Continue home sotalol Telemetry monitoring Resume Coumadin but will need treatment dose Lovenox in the interim with low INR currently, daily INR until therapeutic at which time Lovenox can be discontinued Insulin for diabetes, hold home Metformin PT evaluation Bridging Lovenox will provide appropriate VTE prophylaxis currently Will do overnight pulse ox, patient would clinically benefit from noninvasive ventilation, decrease risk of hospitalization Supportive care otherwise Plans discussed with patient and he was given an opportunity to ask questions Full code Attestations Medical Necessity Statement*: Patient requires hospitalization, for acute on chronic hypoxic hypercarbic respiratory failure Coding Level of Care Code Acute Solar Technician for [facility]g Fwd Diagnoses Acute on chronic respiratory failure with hypoxia and hypercapnia J96.21; J96.22 Obesity E66.01; Z68.43 Obesity type: due to excess calories Obesity classification: adult class 3 (BMI >= 40) Serious obesity comorbidity presence: with serious comorbidity Body mass index: BMI 50.0-59.9 Atrial fibrillation I48.11 Atrial fibrillation type: longstanding persistent Chronic anticoagulation Z79.01 Diabetes mellitus, type II E11.9; Z79.4 Diabetes mellitus intermodal dispatcher insulin use: with intermodal dispatcher use Diabetes mellitus complication status: without complication On home oxygen therapy Z99.81
[2020-10-18 17:02] LABS: Glucose Point of Care 104 mg/dL (70-110)
--- NOTE | 2020-10-18 18:20 | PC.NURSE ---
Patient was transported by staff via wheelchair to [facility] at 1740. All belongings are with patient. No complains were made.
[2020-10-18 21:28] LABS: Glucose Point of Care 112 mg/dL (70-110)
[2020-10-19] VITALS (11 sets, daily range): BP systolic 110–156; BP diastolic 62–70; PULSE 51–76; RESP 16–19; TEMP 36.4–36.9; O2SAT 91–99; BMI 58.6
[2020-10-19] MEDS: enoxaparin 100 mg/mL Syringe SUBCUT ×2 (00:16→13:07)
[2020-10-19] MEDS: enoxaparin 60 mg/0.6 mL Syringe 50 MG SUBCUT ×2 (00:17→13:07)
[2020-10-19] MEDS: HYDROcodone-acetaminophen 5-325 mg Tablet 1 TAB PO ×3 (04:00→20:58)
[2020-10-19 05:30] LABS: ABG PH Result 7.34 (7.35-7.45); Arterial Blood Gas Hematocrit 34.4 % (42-52); Base Excess ABG 8.6 mmol/L (-2.0-2.0); Blood Gas Allen Test Pos; Blood Gas Sample Type Arterial; HCO3 ABG 36.3 mmol/L (22-26); PO2 ABG 99.3 mmHg (80.0-100.0)
[2020-10-19 05:31] LABS: Blood Gas Operator Identificat HARKR; Blood Gas Sample Site Radial, left; Oxygen Device BIPAP
[2020-10-19] MEDS: warfarin 5 mg Tablet PO ×2 (05:51→13:06)
[2020-10-19] MEDS: lisinopril 10 mg Tablet PO (05:52)
[2020-10-19 06:19] LABS: Basophils % 0.8 %; Eosinophils # 0.3 10^3/uL (0.0-0.8); Eosinophils % 5.3 %; Hematocrit 35.8 % (42.0-52.0); Hemoglobin 10.8 g/dL (11.7-16.6); Lymphocytes # 1.6 10^3/uL (0.8-4.8); Lymphocytes % 31.3 %; Mean Corpuscular HGB Conc 30.2 g/dL (30.0-36.0); Mean Corpuscular Volume 99.4 fL (80-94); Mean Platelet Volume 9.9 fL (7.4-10.4); Monocytes # 0.6 10^3/uL (0.2-0.9); Monocytes % 12.2 %; Neutrophils # 2.63 10^3/uL (1.8-7.7); Neutrophils % 50.2 %; Nucleated Red Blood Cells % 0 %; Platelet Count 200 10^3/cmm (130-400); Red Cell Distribution Width 15.6 % (12.1-15.1); White Blood Count 5.2 10^3/uL (4.0-10.0)
[2020-10-19 06:27] LABS: INR 1.31 (0.8-1.2)
[2020-10-19 06:37] LABS: Glucose Point of Care 91 mg/dL (70-110)
[2020-10-19 06:40] LABS: Anion Gap 6.7 (5-19); Blood Urea Nitrogen 18 mg/dL (8-23); Calcium 8.9 mg/dL (8.5-10.5); Carbon Dioxide 36 mmol/L (22-29); Chloride 96 mmol/L (98-107); Glomerular Filtration Rate 167.9 mL/min (90-130); Glucose 91 mg/dL (65-115); Osmolality Calculated 281 mOsm/kg (285-295); Potassium 3.7 mmol/L (3.5-5.1); Sodium 135 mmol/L (136-145)
[2020-10-19 06:47] LABS: NT Pro B Type Natriuretic Pept 283 pg/mL (0-125)
[2020-10-19] MEDS: nystatin powder 15 gm Btl 1 APPLIC TOPICAL ×2 (09:57→18:29)
[2020-10-19] MEDS: PARoxetine 20 mg Tablet PO (09:57)
[2020-10-19] MEDS: acetaZOLAMIDE 250 mg Tablet PO ×2 (10:06→20:55)
[2020-10-19] MEDS: sotalol 80 mg Tablet 120 MG PO ×2 (10:07→22:51)
[2020-10-19] MEDS: bumetanide 1 mg Tablet PO (10:07)
--- NOTE | 2020-10-19 10:46 | PC.SOCIAL ---
Pg 2 IMM Explained to pt Pg 2 IMM. No questions voiced. Provided pt a copy. Signed, dated, & timed a copy & placed in chart.
[2020-10-19 11:22] LABS: Glucose Point of Care 91 mg/dL (70-110)
--- NOTE | 2020-10-19 14:13 | PM.PN ---
Subjective Subjective: Interval history: Patient was examined this morning, he tells me he is feeling a lot better, he actually got up to the side of the bed with physical therapy, he feels that his strength is improving, he tolerated the BiPAP well overnight, tells me that he helps with his breathing Vitals/I&O/Wt Last Vital Signs Temp 98.2 F 10/19/20 11:57 Pulse 76 10/19/20 11:57 Resp 18 10/19/20 11:57 BP 110/62 10/19/20 11:57 Pulse Ox 91 10/19/20 11:57 10/18/20 10/19/20 10/19/20 22:59 06:59 14:59 Intake Total 240 / 580 600 / 600 Output Total 850 / 2250 600 / 2850 Balance -610 / -1670 -600 / -2270 600 / 600 Weight last 48 hrs Weight 218.495 kg Weight 221.438 kg Physical Exam Const: COMMON NORMALS: no acute distress and patient oriented x3 Resp: COMMON NORMALS: normal respiratory effort, No retractions, No use of accessory muscles and clear to auscultation bilaterally AUSCULTATION: clear to auscultation bilaterally Cardio: COMMON NORMALS: regular rate, regular rhythm, S1 normal heart sound present, S2 normal heart sound present and No murmurs present (Cardio) RATE: regular rate RHYTHM: regular rhythm HEART SOUNDS: S1 normal heart sound present and S2 normal heart sound present GI: COMMON NORMALS: Normal to inspection, nondistended, normoactive bowel sounds present, Soft to palpation and non-tender PALPATION: Yes Soft to palpation OTHER: Obese abdomen, large pannus Extremity: COMMON NORMALS: capillary refill normal and no clubbing, cyanosis or edema NARRATIVE EXTREMITY EXAM: 1+ pitting edema Neuro: COMMON NORMALS: patient oriented x3 Data : 10/19/20 05:58 10/19/20 05:58 A&P Assessment and plan (1) Acute on chronic respiratory failure with hypoxia and hypercapnia: Likely multifactorial from sleep apnea, CHF, obesity hypoventilation syndrome, right-sided heart failure With respiratory acidosis and hypercapnia. Recent PFTs showed restrictive pattern. He does not have noninvasive ventilation at home. Follows with Dr. Patel outpatient. Status: Acute (2) Obesity: Has been trying to get bariatric surgery Status: Chronic Qualifiers: Obesity type: due to excess calories Obesity classification: adult class 3 (BMI >= 40) Serious obesity comorbidity presence: with serious comorbidity Body mass index: BMI 50.0-59.9 Qualified Code(s): E66.01 - Morbid (severe) obesity due to excess calories; Z68.43 - Body mass index [BMI] 50.0-59.9, adult (3) Atrial fibrillation: Status: Chronic Qualifiers: Atrial fibrillation type: longstanding persistent Qualified Code(s): I48.11 - Longstanding persistent atrial fibrillation (4) Chronic anticoagulation: With Coumadin, currently subtherapeutic INR Status: Chronic (5) Diabetes mellitus, type II: Status: Chronic Qualifiers: Diabetes mellitus intermediate card tender insulin use: with penitentiary use Diabetes mellitus complication status: without complication Qualified Code(s): E11.9 - Type 2 diabetes mellitus without complications; Z79.4 - terminal gauger (current) use of insulin (6) On home oxygen therapy: Status: Chronic Additional A&P Information Macrocytic anemia Continue BiPAP with sleep, oxygen when awake Increa continue Bumex to 1 mg every 24 hours, with metolazone. Monitor creatinine, monitor potassium, or urine output urine output 1450 Currently on her medical floors Breathing treatments if needed Continue home lisinopril Continue home sotalol Telemetry monitoring Resume Coumadin but will need treatment dose Lovenox in the interim with low INR currently, daily INR until therapeutic at which time Lovenox can be discontinued Insulin for diabetes, hold home Metformin PT?OT Bridging Lovenox will provide appropriate VTE prophylaxis currently Will do overnight pulse ox, patient would clinically benefit from noninvasive ventilation, decrease risk of hospitalization Supportive care otherwise Plans discussed with patient and he was given an opportunity to ask questions Full code Plan for today adjust Coumadin dosing, continue PT OT, continue Bumex, continue BiPAP Attestations Medical Necessity Statement*: Positive for shortness of breath secondary to CHF exacerbation, obesity hypoventilation syndrome, DAWN Coding Level of Care Code Acute 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 [facility] Fwd Diagnoses Acute on chronic respiratory failure with hypoxia and hypercapnia J96.21; J96.22 Obesity E66.01; Z68.43 Obesity type: due to excess calories Obesity classification: adult class 3 (BMI >= 40) Serious obesity comorbidity presence: with serious comorbidity Body mass index: BMI 50.0-59.9 Atrial fibrillation I48.11 Atrial fibrillation type: longstanding persistent Chronic anticoagulation Z79.01 Diabetes mellitus, type II E11.9; Z79.4 Diabetes mellitus penitentiary insulin use: with intermediate card tender use Diabetes mellitus complication status: without complication On home oxygen therapy Z99.81
[2020-10-19 17:38] LABS: Glucose Point of Care 104 mg/dL (70-110)
[2020-10-19 22:19] LABS: Glucose Point of Care 116 mg/dL (70-110)
[2020-10-20] VITALS (16 sets, daily range): BP systolic 102–120; BP diastolic 52–73; PULSE 51–84; RESP 15–20; TEMP 36.4–37; O2SAT 91–98
[2020-10-20] MEDS: enoxaparin 60 mg/0.6 mL Syringe 50 MG SUBCUT ×3 (02:42→23:38)
[2020-10-20] MEDS: enoxaparin 100 mg/mL Syringe SUBCUT ×3 (02:42→23:38)
[2020-10-20] MEDS: HYDROcodone-acetaminophen 5-325 mg Tablet 1 TAB PO ×2 (05:49→18:18)
[2020-10-20] MEDS: lisinopril 10 mg Tablet PO (05:49)
[2020-10-20 06:15] LABS: Basophils % 0.4 %; Eosinophils # 0.3 10^3/uL (0.0-0.8); Eosinophils % 5.2 %; Hematocrit 38.3 % (42.0-52.0); Hemoglobin 11.4 g/dL (11.7-16.6); Lymphocytes # 1.8 10^3/uL (0.8-4.8); Lymphocytes % 32.2 %; Mean Corpuscular HGB Conc 29.8 g/dL (30.0-36.0); Mean Corpuscular Hemoglobin 30.2 pg (28.0-34.0); Mean Corpuscular Volume 101.3 fL (80-94); Mean Platelet Volume 11.1 fL (7.4-10.4); Monocytes # 0.7 10^3/uL (0.2-0.9); Monocytes % 11.8 %; Neutrophils # 2.81 10^3/uL (1.8-7.7); Neutrophils % 50.2 %; Nucleated Red Blood Cells % 0 %; Platelet Count 194 10^3/cmm (130-400); Red Blood Count 3.78 10^6/uL (4.1-5.3); Red Cell Distribution Width 15.5 % (12.1-15.1); White Blood Count 5.6 10^3/uL (4.0-10.0)
[2020-10-20 06:40] LABS: Glucose Point of Care 103 mg/dL (70-110)
[2020-10-20 06:58] LABS: Alanine Aminotransferase 22 U/L (0-41); Albumin Level 3.3 g/dL (3.5-5.2); Alkaline Phosphatase 66 IU/L (40-130); Anion Gap 8.9 (5-19); Aspartate Amino Transferase 37 U/L (0-40); Blood Urea Nitrogen 15 mg/dL (8-23); Calcium 8.7 mg/dL (8.5-10.5); Carbon Dioxide 34 mmol/L (22-29); Chloride 98 mmol/L (98-107); Globulin 3.1 g/dL (1.3-4.6); Glomerular Filtration Rate 167.9 mL/min (90-130); Glucose 87 mg/dL (65-115); NT Pro B Type Natriuretic Pept 383 pg/mL (0-125); Osmolality Calculated 284 mOsm/kg (285-295); Phosphorus 3.7 mg/dL (2.5-4.5); Potassium 3.9 mmol/L (3.5-5.1); Sodium 137 mmol/L (136-145); Total Bilirubin 0.6 mg/dL (0.15-1.2); Total Protein 6.4 g/dL (6.6-8.7)
[2020-10-20] MEDS: PARoxetine 20 mg Tablet PO (08:42)
[2020-10-20] MEDS: nystatin powder 15 gm Btl 1 APPLIC TOPICAL ×2 (08:47→18:17)
[2020-10-20] MEDS: sotalol 80 mg Tablet 120 MG PO (10:30)
[2020-10-20] MEDS: acetaZOLAMIDE 250 mg Tablet PO ×2 (10:32→21:24)
[2020-10-20] MEDS: bumetanide 1 mg Tablet PO ×2 (10:32→23:37)
[2020-10-20 10:38] LABS: INR 1.42 (0.8-1.2)
[2020-10-20 11:34] LABS: Glucose Point of Care 107 mg/dL (70-110)
[2020-10-20] MEDS: ipratropium-albuterol 3 mL Neb INHALATION (11:42)
--- NOTE | 2020-10-20 12:15 | PC.NURSE ---
pt states his chronic pain stays about a 7 on the 0-10 scale. 7 is manageable for him.
--- NOTE | 2020-10-20 12:37 | P.PN_ITS ---
Subjective Subjective: Interval history: Patient was seen this morning, he tells me that he had the overnight pulse ox, he still has some anasarca, pitting edema, but overall feeling better, he had issues with incomplete bladder emptying last night requiring Willingham catheter placement, overall he feels better Vitals/I&O/Wt Last Vital Signs Temp 98.5 F 10/20/20 12:00 Pulse 55 L 10/20/20 12:00 Resp 17 10/20/20 12:00 BP 102/58 10/20/20 12:00 Pulse Ox 91 10/20/20 12:00 10/19/20 10/20/20 10/20/20 22:59 06:59 14:59 Intake Total 480 / 1080 Output Total 700 / 700 1000 / 1700 Balance -220 / 380 -1000 / -620 Weight last 48 hrs Weight 218.495 kg Physical Exam Const: COMMON NORMALS: no acute distress and patient oriented x3 HENMT: COMMON NORMALS: normocephalic HEAD & SCALP: normocephalic Neck/C-Spine: COMMON NORMALS: no JVD Resp: COMMON NORMALS: normal respiratory effort, No retractions, No use of accessory muscles and clear to auscultation bilaterally AUSCULTATION: clear to auscultation bilaterally Cardio: COMMON NORMALS: no JVD, regular rate, regular rhythm, S1 normal heart sound present and S2 normal heart sound present RATE: regular rate RHYTHM: regular rhythm HEART SOUNDS: S1 normal heart sound present and S2 normal heart sound present GI: COMMON NORMALS: Normal to inspection, nondistended, normoactive bowel sounds present, Soft to palpation, non-tender, No hepatosplenomegaly present, no masses and no bruits PALPATION: Yes Soft to palpation and Yes No hepatosplenomegaly present Extremity: COMMON NORMALS: no clubbing, cyanosis or edema and no calf tenderness NARRATIVE EXTREMITY EXAM: 1+ pitting edema Has generalized anasarca Neuro: COMMON NORMALS: patient oriented x3 Psych: COMMON NORMALS: mental status grossly normal Urinary Catheter Management^: Willingham: Cath Placed During This Visit: yes Reason for Continuing Indwelling Catheter: Acute Urinary Retention or Obstructi on Urinary Catheter Date of Insertion: 10/19/20 Urinary Catheter Time of Insertion: 15:30 Data : 10/20/20 04:45 10/20/20 04:45 A&P Assessment and plan (1) Acute on chronic respiratory failure with hypoxia and hypercapnia: Likely multifactorial from sleep apnea, CHF, obesity hypoventilation syndrome, right-sided heart failure With respiratory acidosis and hypercapnia. Recent PFTs showed restrictive pattern. He does not have noninvasive ventilation at home. Follows with Dr. Patel outpatient. Status: Acute (2) Obesity: Has been trying to get bariatric surgery Status: Chronic Qualifiers: Obesity type: due to excess calories Obesity classification: adult class 3 (BMI >= 40) Serious obesity comorbidity presence: with serious comorbidity Body mass index: BMI 50.0-59.9 Qualified Code(s): E66.01 - Morbid (severe) obesity due to excess calories; Z68.43 - Body mass index [BMI] 50.0- 59.9, adult (3) Atrial fibrillation: Status: Chronic Qualifiers: Atrial fibrillation type: longstanding persistent Qualified Code(s): I48.11 - Longstanding persistent atrial fibrillation (4) Chronic anticoagulation: With Coumadin, currently subtherapeutic INR Status: Chronic (5) Diabetes mellitus, type II: Status: Chronic Qualifiers: Diabetes mellitus usp insulin use: with usp use Diabetes mellitus complication status: without complication Qualified Code(s): E11.9 - Type 2 diabetes mellitus without complications; Z79.4 - [facility] (current) use of insulin (6) On home oxygen therapy: Status: Chronic Additional A&P Information Macrocytic anemia Continue BiPAP with sleep, oxygen when awake Increa continue Bumex to 1 mg every 12 hours hours, with Diamox. Monitor creatinine, monitor potassium, or urine output urine output [address], will remove as per protocol Currently on her medical floors Breathing treatments if needed Continue home lisinopril Continue home sotalol Telemetry monitoring Resume Coumadin but will need treatment dose Lovenox in the interim with low INR currently, daily INR until therapeutic at which time Lovenox can be discontinued Insulin for diabetes, hold home Metformin PT/OT Bridging Lovenox will provide appropriate VTE prophylaxis currently Awaiting overnight pulse ox results, patient would clinically benefit from noninvasive ventilation, decrease risk of hospitalization Supportive care otherwise Plans discussed with patient and he was given an opportunity to ask questions Full code Plan for today adjust increase Bumex dose, monitor urine output, monitor respir atory status, continue BiPAP as needed, awaiting pulse ox results, hopefully discharge in 24 hours Attestations Medical Necessity Statement*: Patient requires hospitalization, for acute on chronic respiratory failure with hypoxia and hypercapnia Coding Level of Care Code Acute Hydraulic Jack Adjuster for Chg Fwd Diagnoses Acute on chronic respiratory failure with hypoxia and hypercapnia J96.21; J96.22 Obesity E66.01; Z68.43 Obesity type: due to excess calories Obesity classification: adult class 3 (BMI >= 40) Serious obesity comorbidity presence: with serious comorbidity Body mass index: BMI 50.0-59.9 Atrial fibrillation I48.11 Atrial fibrillation type: longstanding persistent Chronic anticoagulation Z79.01 Diabetes mellitus, type II E11.9; Z79.4 Diabetes mellitus usp insulin use: with extermination inspector use Diabetes mellitus complication status: without complication On home oxygen therapy Z99.81
--- NOTE | 2020-10-20 15:45 | PC.OT ---
OT TREATMENT ATTEMPTED. PATIENT SLEEPING SOUNDLY. WILL ATTEMPT AGAIN AT A LATER TIME.
[2020-10-20 17:26] LABS: Glucose Point of Care 102 mg/dL (70-110)
[2020-10-20] MEDS: warfarin 5 mg Tablet PO (18:17)
[2020-10-20] MEDS: warfarin 2.5 mg Tablet PO (19:06)
[2020-10-20 20:54] LABS: Glucose Point of Care 136 mg/dL (70-110)
--- NOTE | 2020-10-20 23:25 | PC.NURSE ---
This nurse discussed with Dr. Noguera Pt concerns about HR. Pt stated since starting betapace his HR has been in the 50s, Pt states he checks HR and O2 daily at home, pt complains of tiredness and fatigue and questions if it is related to his HR being low. Nurse reviewed vital signs with Dr. Noguera and previous EKG from 10/17 showing sinus bradycardia with AV block, Dr. Noguera stated a HR of 50s is a contraindication for Betapace and PT has had HR's in the 50's since admission, Dr. Noguera instructed Nurse to hold bedtime dose of Betapace 120 mg and stated he would speak to day team about the dose.
[2020-10-21] VITALS (12 sets, daily range): BP systolic 117–144; BP diastolic 65–81; PULSE 55–77; RESP 18–22; TEMP 36.6–36.8; O2SAT 92–97
[2020-10-21] MEDS: HYDROcodone-acetaminophen 5-325 mg Tablet 1 TAB PO ×3 (00:44→14:50)
[2020-10-21] MEDS: lisinopril 10 mg Tablet PO (05:30)
[2020-10-21 06:09] LABS: Basophils % 0.4 %; Eosinophils # 0.3 10^3/uL (0.0-0.8); Eosinophils % 6.9 %; Hematocrit 36.5 % (42.0-52.0); Hemoglobin 11.2 g/dL (11.7-16.6); Lymphocytes # 1.6 10^3/uL (0.8-4.8); Lymphocytes % 34.1 %; Mean Corpuscular HGB Conc 30.7 g/dL (30.0-36.0); Mean Corpuscular Hemoglobin 30.4 pg (28.0-34.0); Mean Corpuscular Volume 99.2 fL (80-94); Mean Platelet Volume 10.9 fL (7.4-10.4); Monocytes # 0.5 10^3/uL (0.2-0.9); Monocytes % 9.9 %; Neutrophils % 48.5 %; Nucleated Red Blood Cells % 0 %; Platelet Count 185 10^3/cmm (130-400); Red Blood Count 3.68 10^6/uL (4.1-5.3); Red Cell Distribution Width 15.3 % (12.1-15.1); White Blood Count 4.8 10^3/uL (4.0-10.0)
[2020-10-21 06:32] LABS: Alanine Aminotransferase 27 U/L (0-41); Albumin Level 3.6 g/dL (3.5-5.2); Alkaline Phosphatase 71 IU/L (40-130); Anion Gap 9.6 (5-19); Aspartate Amino Transferase 42 U/L (0-40); Blood Urea Nitrogen 13 mg/dL (8-23); Calcium 8.8 mg/dL (8.5-10.5); Carbon Dioxide 34 mmol/L (22-29); Chloride 98 mmol/L (98-107); Globulin 3.2 g/dL (1.3-4.6); Glomerular Filtration Rate 167.9 mL/min (90-130); Glucose 81 mg/dL (65-115); Osmolality Calculated 285 mOsm/kg (285-295); Phosphorus 3.1 mg/dL (2.5-4.5); Potassium 3.6 mmol/L (3.5-5.1); Sodium 138 mmol/L (136-145); Total Bilirubin 0.5 mg/dL (0.15-1.2); Total Protein 6.8 g/dL (6.6-8.7)
[2020-10-21 06:33] LABS: Glucose Point of Care 123 mg/dL (70-110)
[2020-10-21 06:41] LABS: NT Pro B Type Natriuretic Pept 458 pg/mL (0-125)
[2020-10-21 07:14] LABS: INR 1.51 (0.8-1.2)
[2020-10-21] MEDS: PARoxetine 20 mg Tablet PO (08:34)
[2020-10-21] MEDS: nystatin powder 15 gm Btl 1 APPLIC TOPICAL (08:37)
--- NOTE | 2020-10-21 09:24 | PC.SOCIAL ---
IMM Updated Updated pt on Pg 2 IMM. No questions voiced. Provided pt a copy. Signed, dated, & timed copy in chart.
--- NOTE | 2020-10-21 10:50 | PC.CHAP ---
Pastoral Care Encounter/Spiritual Assessment Type of Contact [] Declined relocation director visit [] Patient/Family/Request visit [] Outpatient visit [] Follow-up visit [] Physician referral [] Code/Alert [x] Routine visit [] Staff referral [] Actively dying [] Patient sleeping [] Family support [] [] Out of room [] Palliative care [] [x] Receiving care in room [] Pre-surgical visit [] Trauma [x] Long length of stay [] ICU visit [] Other: Relational/Emotional Strength [x] Patient feels connected with others/family/visitors/staff [] Distress [] Loneliness/isolation [] Abandonment Spirituality of Patient [x] Person of Liz [] Attends [employer] of their Liz [x] Believes in Prayer [] Reads Bible or Restorationism materials [] There are Spiritual issues to be addressed Real Estate Manager Interventions [x] Prayer [x] Active listening [x] Non-anxious presence [x] Spiritual/emotional support [] Crisis/trauma care [x] Spiritual counseling [] Bereavement support [] Provided bereavement packet [] Provided Bible/devotional materials [] Provided toy/stuffed animal, coloring book to patient or family member [] Provided Communion [] Anointing/[place] [] Salvation [x] Completed spiritual assessment [] Other: Impact on Illness or Injury [] Angry [] Fearful [x] Anxious [] Often cries [] Exhaustion [] Unable to work [] Unable to attend sikh [] Unable to walk/stand [] Unable to read [] Unable to drive [] Unable to eat/drink [] Unable to sleep [] Unable to be with family [] Patient intubated [] Other: Summary respirotory destress heat, not sure about her health has a good attitude, wants to go home Time spent with patient 10 mins
--- NOTE | 2020-10-21 11:01 | PM.DCS ---
Discharge Providers Date of Admission: 10/16/20 21:54 Date of Discharge: October 21, 2020 Attending Provider at Admission: Logan Morton MD Attending Provider at Discharge: Harris Pierson MD Primary Care Provider: Robert Mustafa Diagnoses at Discharge Discharge Diagnosis (1) Acute on chronic respiratory failure with hypoxia and hypercapnia: Status: Acute (2) Obesity: Status: Chronic Qualifiers: Body mass index: BMI 50.0-59.9 Obesity classification: adult class 3 (BMI >= 40) Obesity type: due to excess calories Serious obesity comorbidity presence: with serious comorbidity Qualified Code(s): E66.01 - Morbid (severe) obesity due to excess calories; Z68.43 - Body mass index [BMI] 50.0-59.9, adult (3) Atrial fibrillation: Status: Chronic Qualifiers: Atrial fibrillation type: longstanding persistent Qualified Code(s): I48.11 - Longstanding persistent atrial fibrillation (4) Chronic anticoagulation: Status: Chronic (5) Diabetes mellitus, type II: Status: Chronic Qualifiers: Diabetes mellitus complication status: without complication Diabetes mellitus landscape designer insulin use: with long-term use Qualified Code(s): E11.9 - Type 2 diabetes mellitus without complications; Z79.4 - bilingual secretary (current) use of insulin (6) On home oxygen therapy: Status: Chronic Permanent problem details: 2-3 L Reason for Visit Reason for Visit: RESPIRATORY DISTRESS Hospital Course Hospital Course This is a 65-year-old male with a past medical history of obstructive sleep apnea, obesity hypoventilation syndrome, diastolic CHF, history of chronic hypercapnic respiratory failure, who presents to [facility] for shortness of breath Patient was admitted to [facility] for acute on chronic hypoxic hypercapnic respiratory failure secondary to diastolic CHF exacerbation, obstructive sleep apnea, obesity hypoventilation syndrome. Admitted to the ICU, received BiPAP, diuretic therapy, clinically improved, moved to general medical floors, clinically monitored, clinically improved. Discharged on Lasix 40 twice daily, with potassium replacement therapy, with follow-up cardiology in 1 week. Given patient's persistent hypercapnia likely secondary to obstructive sleep apnea, and obesity hypoventilation syndrome, patient was unfortunately unable to make 2 appointments for his sleep study. I have tried to get patient approved for BiPAP without success, I feel that he would clinically benefit from noninvasive ventilation, decrease risk of hospitalization, decrease his risk of morbidity and mortality. However right now the only viable option is for him to repeat the sleep study which has been scheduled for Sunday and needs a home sleep study. I will have patient follow-up with Dr. Patel in 2 weeks for test results and hopefully patient can qualify. For his atrial fibrillation, I had to decrease his dose of sotalol to 80 twice daily given sinus bradycardia. In terms of his Coumadin dosing, he has been subtherapeutic for many months. I have discharged him on Lovenox 150 mg every 12 hours for bridging therapy until his INR is greater than 2, will follow up with his physician tomorrow and on Sunday to decide if he needs to continue Lovenox bridge. In terms of his Coumadin dosing, he has been subtherapeutic for many months. In terms of your Coumadin dosing he received 5 mg on the th, 5 mg on the , 5 mg on the , 5 mg in the , 20 mg on the , 7.5 mg on the , 10 mg on . Which equals a total weekly dose of 47.5 with an INR 1.51, I have increased his total weekly dose by 10%, which is 52.25 total weekly dose to get you to a therapeutic INR, which roughly works out to 7.5 mg daily. So hopefully you can continue 7.5 mg daily, recheck INR tomorrow, Sunday, and Sunday. Patient has been discharged home with home health care Physical Exam Const: COMMON NORMALS: no acute distress and patient oriented x3 HENMT: COMMON NORMALS: normocephalic HEAD & SCALP: normocephalic Neck/C-Spine: COMMON NORMALS: no JVD Resp: COMMON NORMALS: normal respiratory effort, No retractions, No use of accessory muscles and clear to auscultation bilaterally AUSCULTATION: clear to auscultation bilaterally Cardio: COMMON NORMALS: no JVD, regular rate, regular rhythm, S1 normal heart sound present and S2 normal heart sound present RATE: regular rate RHYTHM: regular rhythm HEART SOUNDS: S1 normal heart sound present and S2 normal heart sound present GI: COMMON NORMALS: Normal to inspection, nondistended, normoactive bowel sounds present, Soft to palpation, non-tender, No hepatosplenomegaly present, no masses and no bruits PALPATION: Yes Soft to palpation and Yes No hepatosplenomegaly present Extremity: COMMON NORMALS: capillary refill normal, no clubbing, cyanosis or edema, no calf tenderness and no pedal edema Neuro: COMMON NORMALS: patient oriented x3 Psych: COMMON NORMALS: mental status grossly normal Urinary Catheter Management^: [place]: Cath Placed During This Visit: yes Reason for Continuing Indwelling Catheter: Acute Urinary Retention or Obstruction Urinary Catheter Date of Insertion: 10/19/20 Urinary Catheter Time of Insertion: 15:30 Discharge Data Data Completed and Pending: Completed Studies During Hospitalization Category Date Time Status XR chest 1V edna ble [id number] Urgent Exams 10/16/20 19:48 Completed Pending at discharge Category Date Time Status Complete Blood Co unt w/Auto AM LABS Lab 10/22/20 04:00 Ordered Comprehensive Met abolic Panel AM LA BS Lab 10/22/20 04:00 Ordered Magnesium AM LABS Lab 10/22/20 04:00 Ordered Phosphorus AM LAB S Lab 10/22/20 04:00 Ordered Prothrombin Time INR AM LABS Lab 10/22/20 04:00 Ordered Prothrombin Time INR AM LABS Lab 10/23/20 04:00 Ordered Labs from last 24 hours 10/21/20 10/21/20 10/21/20 06:54 06:16 05:05 WBC RBC Hgb Hct MCV MCH MCHC RDW Plt Count MPV Neut % (Auto) Lymph % (Auto) Patrick % (Auto) Eos % (Auto) Baso % (Auto) Neut # (Auto) Lymph # (Auto) Patrick # (Auto) Eos # (Auto) Baso # (Auto) Nucleated RBC % (a uto) Nucleated RBCs # PT 18.70 H Cancelled INR 1.51 H Cancelled Sodium Potassium Chloride Carbon Dioxide Anion Gap BUN Creatinine GFR Calculation Glucose POC Glucose 123 H Calculated Osmolal ity Calcium Phosphorus Magnesium Total Bilirubin AST ALT Alkaline Phosphata se NT-Pro-B Natriuret Pep Total Protein Albumin Globulin 10/21/20 10/21/20 10/21/20 05:05 05:05 05:05 WBC 4.8 RBC 3.68 L Hgb 11.2 L Hct 36.5 L MCV 99.2 H MCH 30.4 MCHC 30.7 RDW 15.3 H Plt Count 185 MPV 10.9 H Neut % (Auto) 48.5 Lymph % (Auto) 34.1 Patrick % (Auto) 9.9 Eos % (Auto) 6.9 Baso % (Auto) 0.4 Neut # (Auto) 2.30 Lymph # (Auto) 1.6 Patrick # (Auto) 0.5 Eos # (Auto) 0.3 Baso # (Auto) 0.0 Nucleated RBC % (a uto) 0 Nucleated RBCs # 0.0 PT INR Sodium 138 Potassium 3.6 Chloride 98 Carbon Dioxide 34 H Anion Gap 9.6 BUN 13 Creatinine 0.5 L GFR Calculation 167.9 H Glucose 81 POC Glucose Calculated Osmolal ity 285 Calcium 8.8 Phosphorus 3.1 Magnesium 2.0 Total Bilirubin 0.5 AST 42 H ALT 27 Alkaline Phosphata se 71 NT-Pro-B Natriuret Pep 458 H Total Protein 6.8 Albumin 3.6 Globulin 3.2 10/20/20 10/20/20 10/20/20 20:31 17:17 11:12 WBC RBC Hgb Hct MCV MCH MCHC RDW Plt Count MPV Neut % (Auto) Lymph % (Auto) Patrick % (Auto) Eos % (Auto) Baso % (Auto) Neut # (Auto) Lymph # (Auto) Patrick # (Auto) Eos # (Auto) Baso # (Auto) Nucleated RBC % (a uto) Nucleated RBCs # PT INR Sodium Potassium Chloride Carbon Dioxide Anion Gap BUN Creatinine GFR Calculation Glucose POC Glucose 136 H 102 107 Calculated Osmolal ity Calcium Phosphorus Magnesium Total Bilirubin AST ALT Alkaline Phosphata se NT-Pro-B Natriuret Pep Total Protein Albumin Globulin Vitals: Last Vital Signs Temp 98.2 F 10/21/20 08:00 Pulse 77 10/21/20 09:05 Resp 20 H 10/21/20 09:05 BP 121/81 10/21/20 08:00 Pulse Ox 93 10/21/20 09:05 Discharge Plan Discharge Patient Disposition: Home Condition: Stable Prescriptions: New paroxetine HCl 20 mg Tablet 20 mg PO DAILY 30 Days Qty: 30 RF: 0 enoxaparin 100 mg/mL Syringe 150 mg SUBCUT Q12H 10 Days Qty: 30 RF: 0 Betapace 80 mg tablet 80 mg PO Q12H 30 Days Qty: 60 RF: 0 Klor-Con M20 20 mEq tablet,ER particles/crystals 20 meq PO DAILY 30 Days Qty: 30 RF: 0 Continued hydrocodone-acetaminophen [Onarga] 5-325 mg tablet 1 tab PO Q6H PRN (Reason: pain) 9 Days Qty: 36 RF: 0 omeprazole 40 mg Capsule,Delayed Release(Dr/Ec) 40 mg PO DAILY RF: 0 Lasix 40 mg tablet 40 mg PO BID 30 Days Qty: 60 RF: 0 metformin 500 mg tablet 500 mg PO DAILY@0500 RF: 0 lisinopril 10 mg tablet 10 mg PO DAILY@0500 RF: 0 warfarin 5 mg tablet 5 mg PO DAILY@0500 RF: 0 Discontinued sotalol 120 mg tablet 120 mg PO Q12H RF: 0 Discharge Orders: Discharge Order (Routine); Ordered 10/21/20 Ordered By: Harris Pierson Referrals: Home Sleep Study [Other] (You are scheduled for a HOME SLEEP STUDY on 10/25/2020. You will need to lease picker paperwork, equipment and instructions on 10/25/2020 at 12:45pm. If you are unable to lease picker information will need to send someone who is able to sign for you to do so. IT IS EXTREMELY IMPORTANT that the sleep study be completed so you can qualify for the equipment you need to help you improve your health and overall quality of life. Please call the sleep lab at [phone] or Centralized scheduling department at [phone] if you have any questions.) [facility] [Outside] Robert Mustafa [Primary Care Provider] - 10/25/20 4:00 pm Ashu Patel MD [Physician] - 1 month (sleep study) Nuris Zuniga MD [Physician] - 1 week (afib, on coumadin, sotalol) Patient Instructions: Opioid Safety Activity Restrictions/Additional Instructions: -Take Lovenox 150 mg every 12 hours until your INR is greater than 2 -Your primary care physician office will recheck your INR tomorrow, and dose your Coumadin, and decide if Lovenox should be continued -Your INR today is 1.51, recheck INR tomorrow -Take 7.5 mg tomorrow -In terms of your Coumadin dosing he received 5 mg on the 16th, 5 mg on the 17, 5 mg on the 18, 5 mg in the , 20 mg on the , 7.5 mg on the , 10 mg on . Which equals a total weekly dose of 47.5 with an INR 1.51, have increased her total weekly dose by 10%, which is 52.25 total weekly dose to get you to a therapeutic INR, which roughly works out to 7.5 mg daily. So hopefully you can continue 7.5 mg daily, recheck INR tomorrow, and then recheck on Sunday, to see where your INR goes, and decide if you need to continue Lovenox -I will leave of the further dosing up to Dr. Negron -Your sotalol dose has been decreased to 80 mg twice daily -Please follow-up with cardiology -Please follow-up with pulmonary -Please follow-up with sleep study -If you have worsening shortness of breath please come back to emergency room Discharge Attestations Time Spent in Discharge Care*: less than 30 min Status at Discharge: Cognitive status at discharge: cognitively intact, Behavioral status at discharge: cooperative, Quality Metrics Clinical Quality Measures During this hospital stay, did patient experience: None Coding Level of Care Code Acute Chg FW DC note Exam Comprehensive Diagnoses Acute on chronic respiratory failure with hypoxia and hypercapnia J96.21; J96.22 Obesity E66.01; Z68.43 Body mass index: BMI 50.0-59.9 Obesity classification: adult class 3 (BMI >= 40) Obesity type: due to excess calories Serious obesity comorbidity presence: with serious comorbidity Atrial fibrillation I48.11 Atrial fibrillation type: longstanding persistent Chronic anticoagulation Z79.01 Diabetes mellitus, type II E11.9; Z79.4 Diabetes mellitus complication status: without complication Diabetes mellitus landscape designer insulin use: with landscape designer use On home oxygen therapy Z99.81
[2020-10-21] MEDS: potassium chloride ER 20 mEq Tablet 40 MEQ PO (11:27)
[2020-10-21 11:38] LABS: Glucose Point of Care 112 mg/dL (70-110)
[2020-10-21] MEDS: sotalol 80 mg Tablet PO (12:21)
[2020-10-21] MEDS: enoxaparin 100 mg/mL Syringe SUBCUT (12:21)
[2020-10-21] MEDS: enoxaparin 60 mg/0.6 mL Syringe 50 MG SUBCUT (12:22)
[2020-10-21] MEDS: warfarin 2.5 mg Tablet PO (14:50)
[2020-10-21 17:23] LABS: Glucose Point of Care 109 mg/dL (70-110)
== END 2020-10-21 16:45 | disposition home health service (06) | DRG 291 ==
LOC: ER 21:55 → ICU 22:02 → MEDSURG 10-18 18:04
PROVIDERS: Hospitalist; Admitting Provider Internal Medicine; Emergency Provider Emergency Medicine; PCP Family Medicine; Visit Provider Family Medicine
DX: I11.0 Hypertensive heart disease with heart failure (principal); J96.22 Acute and chronic respiratory failure with hypercapnia; J96.21 Acute and chronic respiratory failure with hypoxia; J44.1 Chronic obstructive pulmonary disease with (acute) exacerbation; E66.2 Morbid (severe) obesity with alveolar hypoventilation; Z68.43 Body mass index [BMI] 50.0-59.9, adult; I48.11 Longstanding persistent atrial fibrillation; E87.2 Acidosis; I50.33 Acute on chronic diastolic (congestive) heart failure; Z99.81 Dependence on supplemental oxygen; T50.1X6A Underdosing of loop [high-ceiling] diuretics, initial encounter; E11.9 Type 2 diabetes mellitus without complications; K21.9 Gastro-esophageal reflux disease without esophagitis; Z87.11 Personal history of peptic ulcer disease; I25.2 Old myocardial infarction; Z87.01 Personal history of pneumonia (recurrent); Z87.440 Personal history of urinary (tract) infections; Z87.891 Personal history of nicotine dependence; I27.81 Cor pulmonale (chronic); D53.9 Nutritional anemia, unspecified; R33.9 Retention of urine, unspecified; Z79.891 Long term (current) use of opiate analgesic; Z79.84 Long term (current) use of oral hypoglycemic drugs; Z79.01 Long term (current) use of anticoagulants
CPT/HCPCS: 36415; 36416; 36600; 51702; 71045; 80048; 80053; 82803; 82805; 82962; 83735; 83880; 84100; 84484; 85025; 85378; 85610; 93005; 94640; 94660; 96372; 96374; 97116; 97161; 97165; 97530; 97535; 99291; J1650; J1815; J2930; J7611

== ENCOUNTER 2020-11-18 20:00 | Outpatient (CLI) | payer MEDICARE, SELFPAY | END 2020-11-18 20:01 | disposition home or self-care (01) | LOC: SLEEP 11-19 08:49 | PROVIDERS: PCP Family Medicine; Visit Provider Internal Medicine Critical Care Medicine | DX: J96.10 Chronic respiratory failure, unspecified whether with hypoxia or hypercapnia (principal); G47.33 Obstructive sleep apnea (adult) (pediatric) | CPT/HCPCS: 95811 ==

== ENCOUNTER 2020-12-31 10:56 | Inpatient (IN) | payer MEDICARE, SELFPAY ==
[2020-12-31] VITALS (105 sets, daily range): BP systolic 136–187; BP diastolic 64–119; PULSE 48–79; RESP 14–30; TEMP 36.6–37.2; O2SAT 89–99; BMI 53.5
--- NOTE | 2020-12-31 11:08 | XR_ITS ---
WS: [id number] Portable AP semiupright chest, 12/31/2020 Clinical Data: dyspnea/ morbid obesity Comparison: Portable chest, 10/16/2020 Findings: The heart is enlarged. The patient's tissue obscures the right lung base but there may be p leural fluid, atelectasis and consolidation. The left lung shows mild pulmonary vascular congestion. No pneumothorax is seen. No left effusion is seen. There are monitor leads on the chest wall. XR/XR chest 1V portable [id number] Impression: 1. Cardiomegaly. 2. Possible consolidation, atelectasis and right pleural fluid. 3. Mild pulmonary vascular congestion.
--- NOTE | 2020-12-31 11:10 | ECG_ITS ---
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 Measurements Intervals [place] Rate: 61 P: -11 MI: 216 QRS: -23 QRSD: 114 T: 143 QT: 392 QTc: 395 Interpretive Statements SINUS RHYTHM WITH FIRST DEGREE AV BLOCK POSSIBLE LATERAL MYOCARDIAL INFARCTION [30 ms Q WAVE IN I/aVL/V5/V6], OF INDETERMINATE AGE Compared to ECG 10/17/2020 01:50:46 Myocardial infarct finding now present Sinus bradycardia no longer present Left-axis deviation no longer present ST (T wave) deviation no longer present Electronically Signed On 12-31-2020 21:34:49 CDT by Clovis Dave M.D. [id number]
[2020-12-31 11:18] LABS: ABG PH Result 7.25 (7.35-7.45); Arterial Blood Gas Hematocrit 34.4 % (42-52); Base Excess ABG 12.7 mmol/L (-2.0-2.0); Blood Gas Allen Test Pos; Blood Gas Operator Identificat AMH; Blood Gas Sample Site Radial, right; Blood Gas Sample Type Arterial; Carboxyhemoglobin 1.5 %THgb (0.4-20.1); HCO3 ABG 43.3 mmol/L (22-26); HGB O2 Sat 97.1 % (95-100); Methemoglobin 0.8 % (0.4-1.5); Oxygen Device NRB; Total Hemoglobin 11.2 g/dL (14-18)
--- NOTE | 2020-12-31 11:19 | ED_ITS ---
HPI - General Adult General: Chief complaint: General Medical Stated complaint: lethargic, SOB Time Seen by Provider: 12/31/20 11:08 History of Present Illness: HPI narrative: The patient is a 65-year-old male with past medical history atrial fibrillation on Coumadin, diabetes, super morbidly obese with chronic respiratory failure. He comes to the ER today complaining of shortness of breath and that he kept passing out at home. He was to go see Dr. Patel today to be evaluated for a CPAP as he wears 2 L nasal cannula home oxygen however he called them and complained of shortness of breath so they told him to come to the ER. EMS found him satting 78% on his nasal cannula. They placed him on a nonrebreather and took him to the ER. On nonrebreather he is satting well and says he is breathing somewhat better but still short of breath. BiPAP being placed shortly after arrival. He is sleepy but answering questions appropriately. He says his symptoms started about 4 to 5 days ago and have been slowly worsening. Denies chest pain, abd pain, n/v/d. Severity: severe Associated symptoms: Reports dyspnea and short of breath; Deny chest pain, confusion, headache(s), rash or palpitations Review of Systems General: Reports: 10 or more systems reviewed and unremarkable except in HPI and below Const: Denies: fatigue Eyes: Denies: change in vision, blurry vision or eye redness ENMT: Denies: throat pain, swelling of lips/tongue, ear or mastoid pain or nasal congestion Card: Denies: chest pain, palpitations, irregular heart rhythm, edema, dyspnea on exertion or orthopnea Resp: Reports: dyspnea; Denies: productive cough or non-productive cough GI: Denies: abdominal pain, diarrhea or GI cramping : Denies: flank pain, urinary frequency or urinary urgency Musc: Denies: neck pain, back pain, extremity pain, joint pain, joint redness, limited range of motion or muscle weakness Skin/Breast: Denies: rash, pruritus, erythema, skin pain or skin tenderness Neuro: Denies: headache(s), numbness in extremities, weakness in extremities, sensory changes, difficulty walking, dizziness, confusion or Slurred speech present Psych: Denies: anxiety or depression Endo: Denies: polyuria All/Imm: Denies: urticaria, throat swelling or tongue swelling PFSH ED PFSH: Medical History Atrial fibrillation Chronic anticoagulation Diabetes mellitus, type II GERD (gastroesophageal reflux disease) History of gastric ulcer with perforation Hypertension Morbid obesity with BMI of 50.0-59.9, adult Pneumonia Recurrent falls Surgical History History of esophagogastroduodenoscopy History of exploratory laparotomy for perforated gastric ulcer Family History Father Cancer lung Mother Asthma CAD (coronary artery disease) Sister Cerebral aneurysm Social History Smoking and tobacco status: former smoker Quit status (tobacco): has quit using tobacco Year quit tobacco: 1978 - PD x 7 Years Second hand smoke exposure: Yes Smoking risk assessment/counseling performed?: No Alcohol intake: current Alcohol intake frequency: few times a week Alcohol type: beer Counseling given: No Counseling given: No Lives independently: Yes Household members: family Marital status: Current occupational status: disabled Previous occupational history: history of working in [employer] History of recent travel: No Current gender identity: Male Physical Exam Narrative: EXAM NARRATIVE: Super morbidly obese. Satting in the low 90s on nonrebreather. Somnolent. Answering questions appropriately Const: COMMON NORMALS: patient oriented x3, no limitations, alert and well nourished GENERAL APPEARANCE: cooperative and well developed NUTRITIONAL APPEARANCE: obese morbidly obese ORIENTATION/CONSCIOUSNESS: Yes awake, Yes oriented to person, Yes oriented to place, Yes oriented to time and Yes Other orientation findings (sleepy) HENMT: COMMON NORMALS: normocephalic, external ears normal and Normal external nose present HEAD & SCALP: normal to inspection and normocephalic NOSE: Normal external nose present EXTERNAL EAR: Yes external ears normal MOUTH: Normal oral and palatal mucosa present THROAT: posterior oropharynx normal Eye: COMMON NORMALS: Equal, round and reactive pupils present and EOMs intact bilaterally GENERAL EYE: appearance normal, both eyes and all related structures PUPIL: Yes Equal, round and reactive pupils present Neck/C-Spine: COMMON NORMALS: full ROM, no lymphadenopathy, no meningeal signs and no JVD GENERAL: Yes normal visual inspection Lymph: LYMPHATIC: no lymphadenopathy noted Chest: COMMONS NORMALS: normal inspection of the chest and normal palpation of entire chest wall Resp: EFFORT & INSPECTION: Yes able to speak in complete sentences, Yes tachypneic, Yes respiratory distress and Yes uses accessory muscles AUSCULTATION: diminished lung sounds Cardio: COMMON NORMALS: no JVD, regular rate, regular rhythm, S1 normal heart sound present, S2 normal heart sound present and Peripheral pulses 2+ throughout RATE: regular rate RHYTHM: regular rhythm HEART SOUNDS: S1 normal heart sound present and S2 normal heart sound present PERIPHERAL PULSES: Peripheral pulses 2+ throughout GI: COMMON NORMALS: Normal to inspection, nondistended, normoactive bowel sounds present, Soft to palpation, non-tender and no masses INSPECTION: Yes normal to inspection PALPATION: Yes Soft to palpation : COMMON NORMALS: Yes no CVA tenderness BLADDER/KIDNEY EXAM: Yes no CVA tenderness Back/Pelvis: COMMON NORMALS: no CVA tenderness, thoracic and lumbar spine normal to inspection, no thoracic nor lumbar tenderness and thoraco-lumbar ROM normal Extremity: COMMON NORMALS: normal to inspection, full ROM, capillary refill normal, no joint enlargement and no pedal edema GENERAL: Yes normal exam except as noted Neuro: COMMON NORMALS: patient oriented x3, CN's II-XII intact bilaterally, moves all extremities, no focal motor deficits, no sensory deficits noted and gait normal SENSORIUM/ORIENTATION: Yes alert, Yes oriented to person, Yes oriented to place and Yes oriented to time MENINGEAL SIGNS: Yes no meningeal signs Psych: COMMON NORMALS: mental status grossly normal, Normal thought process present, cooperative, normal affect and speech normal ATTITUDE: Yes calm SPEECH: Yes normal speech THOUGHT PROCESS: Normal thought process present Skin: COMMON NORMALS: no rashes or lesions noted NARRATIVE SKIN EXAM: Very large legs with some skin thickening chronic changes. Difficult to tell because of that if there is edema. GENERAL SKIN EXAM: no rashes or lesions noted Course Vital Signs: Vital signs: Vital Signs Temperature 98.9 F 12/31/20 11:04 Pulse Rate 56 L 12/31/20 13:39 Respiratory Rate 20 H 12/31/20 13:10 Blood Pressure 179/78 12/31/20 13:10 Pulse Oximetry 98 12/31/20 13:39 MDM - General Adult MDM Narrative: Medical decision making narrative: The patient is a 65-year-old male with past medical history obesity hypoventilation, chronic respiratory failure, diastolic CHF. He comes to the ER after increasing shortness of breath for 4 days and passing out today. He was placed on BiPAP after arrival and ABG shows severe respiratory acidosis with CO2 initially 98 and pH 7.25. Potassium 5.5 and given IV Lasix. No peaked T waves on EKG it shows sinus rhythm. Sodium 129 likely from CHF. Repeat ABG shows normalized pH with CO2 of 83 and the patient has much improved respiratory status and is breathing comfortably on the BiPAP. Discussed with Dr. Pierson who accepts for admission to ICU Lab Data: Labs: Lab Results 12/31/20 12/31/20 12/31/20 Range/Units 11:07 11:12 11:12 WBC 4.9 (4.0-10.0) 10^3/ uL RBC 3.56 L (4.1-5.3) 10^6/u L Hgb 10.6 L (11.7-16.6) g/dL Hct 35.1 L (42.0-52.0) % MCV 98.6 H (80-94) fL MCH 29.8 (28.0-34.0) pg MCHC 30.2 (30.0-36.0) g/dL RDW 15.3 H (12.1-15.1) % Plt Count 205 (130-400) 10^3/c mm MPV 9.9 (7.4-10.4) fL Neut % (Auto) 56.8 % Lymph % (Auto) 24.7 % [place] % (Auto) 12.3 % Eos % (Auto) 5.6 % Baso % (Auto) 0.4 % Neut # (Auto) 2.76 (1.8-7.7) 10^3/u L Lymph # (Auto) 1.2 (0.8-4.8) 10^3/u L [place] # (Auto) 0.6 (0.2-0.9) 10^3/u L Eos # (Auto) 0.3 (0.0-0.8) 10^3/u L Baso # (Auto) 0.0 (0.0-0.1) 10^3/u L Nucleated RBC % (a uto) 0 % Nucleated RBCs # 0.0 /100WBC PT 35.90 H (12.1-14.9) SECO NDS INR 3.53 H (0.8-1.2) Specimen Type Arterial Sample Site Radial, right ABG pH 7.25 L (7.35-7.45) ABG pCO2 98.2 H* (35-45) mmHg ABG pO2 147.0 H (80.0-100.0) mmH g ABG HCO3 43.3 H (22-26) mmol/L ABG O2 Saturation ABG Base Excess 12.7 H (-2.0-2.0) mmol/ L Ronald Test Pos A-a O2 Gradient (5-10) mmHg Hematocrit 34.4 L (42-52) % Hgb O2 Saturation 97.1 (95-100) % Carboxyhemoglobin 1.5 (0.4-20.1) %THgb Methemoglobin 0.8 (0.4-1.5) % Total Hemoglobin 11.2 L (14-18) g/dL Ionized Calcium (1.1-1.4) mmol/L O2 Delivery Device Nrb O2 Liters/Min 15.0 % FiO2 100.0 % Instructional Technology Coordinator ID Amh Sodium (136-145) mmol/L Potassium (3.5-5.1) mmol/L Chloride (98-107) mmol/L Carbon Dioxide (22-29) mmol/L Anion Gap (5-19) BUN (8-23) mg/dL Creatinine (0.7-1.2) mg/dL GFR Calculation (90-130) mL/min Glucose (65-115) mg/dL Calculated Osmolal ity (285-295) mOsm/k g Lactic Acid (0.5-2.2) mmol/L Calcium (8.5-10.5) mg/dL Total Bilirubin (0.15-1.2) mg/dL AST (0-40) U/L ALT (0-41) U/L Alkaline Phosphata se (40-130) IU/L Creatine Kinase (39-308) U/L Troponin T Baselin e (0-15) ng/L Troponin T 120 Min [place] Troponin T NT-Pro-B Natriuret Pep (0-125) pg/mL Total Protein (6.6-8.7) g/dL Albumin (3.5-5.2) g/dL Globulin (1.3-4.6) g/dL Urine Color (Yellow) Urine Appearance (CLEAR) Urine pH (5-7) Ur Specific Gravit y (1.005-1.030) Urine Protein (Negative) Urine Glucose (UA) (Normal) Urine Ketones (Negative) Urine Blood (Negative) Urine Nitrate (Negative) Urine Bilirubin (Negative) Urine Urobilinogen (Negative) mg/dL Ur Leukocyte Marly ase (Negative) Urine RBC (0-2) /hpf Urine WBC (0-5) /hpf Ur Squamous Epith Cells (0-5) /hpf Amorphous Sediment Urine Bacteria (NONE) /hpf 12/31/20 12/31/20 12/31/20 Range/Units 11:12 11:12 11:12 WBC (4.0-10.0) 10^3/ uL RBC (4.1-5.3) 10^6/u L Hgb (11.7-16.6) g/dL Hct (42.0-52.0) % MCV (80-94) fL MCH (28.0-34.0) pg MCHC (30.0-36.0) g/dL RDW (12.1-15.1) % Plt Count (130-400) 10^3/c mm MPV (7.4-10.4) fL Neut % (Auto) % Lymph % (Auto) % [place] % (Auto) % Eos % (Auto) % Baso % (Auto) % Neut # (Auto) (1.8-7.7) 10^3/u L Lymph # (Auto) (0.8-4.8) 10^3/u L [place] # (Auto) (0.2-0.9) 10^3/u L Eos # (Auto) (0.0-0.8) 10^3/u L Baso # (Auto) (0.0-0.1) 10^3/u L Nucleated RBC % (a uto) % Nucleated RBCs # /100WBC PT (12.1-14.9) SECO NDS INR (0.8-1.2) Specimen Type Sample Site ABG pH (7.35-7.45) ABG pCO2 (35-45) mmHg ABG pO2 (80.0-100.0) mmH g ABG HCO3 (22-26) mmol/L ABG O2 Saturation ABG Base Excess (-2.0-2.0) mmol/ L Ronald Test A-a O2 Gradient (5-10) mmHg Hematocrit (42-52) % Hgb O2 Saturation (95-100) % Carboxyhemoglobin (0.4-20.1) %THgb Methemoglobin (0.4-1.5) % Total Hemoglobin (14-18) g/dL Ionized Calcium (1.1-1.4) mmol/L O2 Delivery Device O2 Liters/Min % FiO2 % Instructional Technology Coordinator ID Sodium 129 L (136-145) mmol/L Potassium 5.5 H (3.5-5.1) mmol/L Chloride 88 L (98-107) mmol/L Carbon Dioxide 38 H (22-29) mmol/L Anion Gap 8.5 (5-19) BUN 11 (8-23) mg/dL Creatinine 0.6 L (0.7-1.2) mg/dL GFR Calculation 136.1 H (90-130) mL/min Glucose 105 (65-115) mg/dL Calculated Osmolal ity 268 L (285-295) mOsm/k g Lactic Acid 0.7 (0.5-2.2) mmol/L Calcium 9.2 (8.5-10.5) mg/dL Total Bilirubin 0.8 (0.15-1.2) mg/dL AST 28 (0-40) U/L ALT 13 (0-41) U/L Alkaline Phosphata se 85 (40-130) IU/L Creatine Kinase 46 (39-308) U/L Troponin T Baselin e 16 H (0-15) ng/L Troponin T 120 Min [place] Troponin T NT-Pro-B Natriuret Pep 921 H (0-125) pg/mL Total Protein 6.6 (6.6-8.7) g/dL Albumin 3.4 L (3.5-5.2) g/dL Globulin 3.2 (1.3-4.6) g/dL Urine Color (Yellow) Urine Appearance (CLEAR) Urine pH (5-7) Ur Specific Gravit y (1.005-1.030) Urine Protein (Negative) Urine Glucose (UA) (Normal) Urine Ketones (Negative) Urine Blood (Negative) Urine Nitrate (Negative) Urine Bilirubin (Negative) Urine Urobilinogen (Negative) mg/dL Ur Leukocyte Marly ase (Negative) Urine RBC (0-2) /hpf Urine WBC (0-5) /hpf Ur Squamous Epith Cells (0-5) /hpf Amorphous Sediment Urine Bacteria (NONE) /hpf 12/31/20 12/31/20 12/31/20 Range/Units 12:40 13:30 14:01 WBC (4.0-10.0) 10^3/ uL RBC (4.1-5.3) 10^6/u L Hgb (11.7-16.6) g/dL Hct (42.0-52.0) % MCV (80-94) fL MCH (28.0-34.0) pg MCHC (30.0-36.0) g/dL RDW (12.1-15.1) % Plt Count (130-400) 10^3/c mm MPV (7.4-10.4) fL Neut % (Auto) % Lymph % (Auto) % [place] % (Auto) % Eos % (Auto) % Baso % (Auto) % Neut # (Auto) (1.8-7.7) 10^3/u L Lymph # (Auto) (0.8-4.8) 10^3/u L [place] # (Auto) (0.2-0.9) 10^3/u L Eos # (Auto) (0.0-0.8) 10^3/u L Baso # (Auto) (0.0-0.1) 10^3/u L Nucleated RBC % (a uto) % Nucleated RBCs # /100WBC PT (12.1-14.9) SECO NDS INR (0.8-1.2) Specimen Type Arterial Sample Site Radial, right ABG pH 7.35 (7.35-7.45) ABG pCO2 83.1 H* (35-45) mmHg ABG pO2 83.4 (80.0-100.0) mmH g ABG HCO3 45.4 H (22-26) mmol/L ABG O2 Saturation 97.1 ABG Base Excess 16.4 H (-2.0-2.0) mmol/ L Ronald Test Pos A-a O2 Gradient 8.8 (5-10) mmHg Hematocrit 33.7 L (42-52) % Hgb O2 Saturation 95.5 (95-100) % Carboxyhemoglobin 1.7 (0.4-20.1) %THgb Methemoglobin < 0.0 L (0.4-1.5) % Total Hemoglobin 11.0 L (14-18) g/dL Ionized Calcium 1.3 (1.1-1.4) mmol/L O2 Delivery Device Bipap O2 Liters/Min % FiO2 35.0 % Instructional Technology Coordinator ID Cak Sodium 131.0 (136-145) mmol/L Potassium 5.0 (3.5-5.1) mmol/L Chloride (98-107) mmol/L Carbon Dioxide (22-29) mmol/L Anion Gap (5-19) BUN (8-23) mg/dL Creatinine (0.7-1.2) mg/dL GFR Calculation (90-130) mL/min Glucose 111.0 (65-115) mg/dL Calculated Osmolal ity (285-295) mOsm/k g Lactic Acid (0.5-2.2) mmol/L Calcium (8.5-10.5) mg/dL Total Bilirubin (0.15-1.2) mg/dL AST (0-40) U/L ALT (0-41) U/L Alkaline Phosphata se (40-130) IU/L Creatine Kinase (39-308) U/L Troponin T Baselin e (0-15) ng/L Troponin T 120 Min [place] Troponin T Cancelled NT-Pro-B Natriuret Pep (0-125) pg/mL Total Protein (6.6-8.7) g/dL Albumin (3.5-5.2) g/dL Globulin (1.3-4.6) g/dL Urine Color Straw (Yellow) Urine Appearance Clear (CLEAR) Urine pH 5 (5-7) Ur Specific Gravit y 1.010 (1.005-1.030) Urine Protein Neg (Negative) Urine Glucose (UA) Norm (Normal) Urine Ketones Negative (Negative) Urine Blood 3+ H (Negative) Urine Nitrate Negative (Negative) Urine Bilirubin Neg (Negative) Urine Urobilinogen Norm (Negative) mg/dL Ur Leukocyte Marly ase Negative (Negative) Urine RBC 15-25 H (0-2) /hpf Urine WBC None (0-5) /hpf Ur Squamous Epith Cells None (0-5) /hpf Amorphous Sediment Not Reportable Urine Bacteria None (NONE) /hpf 12/31/20 Range/Units 14:12 WBC (4.0-10.0) 10^3/ uL RBC (4.1-5.3) 10^6/u L Hgb (11.7-16.6) g/dL Hct (42.0-52.0) % MCV (80-94) fL MCH (28.0-34.0) pg MCHC (30.0-36.0) g/dL RDW (12.1-15.1) % Plt Count (130-400) 10^3/c mm MPV (7.4-10.4) fL Neut % (Auto) % Lymph % (Auto) % [place] % (Auto) % Eos % (Auto) % Baso % (Auto) % Neut # (Auto) (1.8-7.7) 10^3/u L Lymph # (Auto) (0.8-4.8) 10^3/u L [place] # (Auto) (0.2-0.9) 10^3/u L Eos # (Auto) (0.0-0.8) 10^3/u L Baso # (Auto) (0.0-0.1) 10^3/u L Nucleated RBC % (a uto) % Nucleated RBCs # /100WBC PT (12.1-14.9) SECO NDS INR (0.8-1.2) Specimen Type Sample Site ABG pH (7.35-7.45) ABG pCO2 (35-45) mmHg ABG pO2 (80.0-100.0) mmH g ABG HCO3 (22-26) mmol/L ABG O2 Saturation ABG Base Excess (-2.0-2.0) mmol/ L Ronald Test A-a O2 Gradient (5-10) mmHg Hematocrit (42-52) % Hgb O2 Saturation (95-100) % Carboxyhemoglobin (0.4-20.1) %THgb Methemoglobin (0.4-1.5) % Total Hemoglobin (14-18) g/dL Ionized Calcium (1.1-1.4) mmol/L O2 Delivery Device O2 Liters/Min % FiO2 % Instructional Technology Coordinator ID Sodium (136-145) mmol/L Potassium (3.5-5.1) mmol/L Chloride (98-107) mmol/L Carbon Dioxide (22-29) mmol/L Anion Gap (5-19) BUN (8-23) mg/dL Creatinine (0.7-1.2) mg/dL GFR Calculation (90-130) mL/min Glucose (65-115) mg/dL Calculated Osmolal ity (285-295) mOsm/k g Lactic Acid (0.5-2.2) mmol/L Calcium (8.5-10.5) mg/dL Total Bilirubin (0.15-1.2) mg/dL AST (0-40) U/L ALT (0-41) U/L Alkaline Phosphata se (40-130) IU/L Creatine Kinase (39-308) U/L Troponin T Baselin e (0-15) ng/L Troponin T 120 Min [place] 13.81 [place] Troponin T NT-Pro-B Natriuret Pep (0-125) pg/mL Total Protein (6.6-8.7) g/dL Albumin (3.5-5.2) g/dL Globulin (1.3-4.6) g/dL Urine Color (Yellow) Urine Appearance (CLEAR) Urine pH (5-7) Ur Specific Gravit y (1.005-1.030) Urine Protein (Negative) Urine Glucose (UA) (Normal) Urine Ketones (Negative) Urine Blood (Negative) Urine Nitrate (Negative) Urine Bilirubin (Negative) Urine Urobilinogen (Negative) mg/dL Ur Leukocyte Marly ase (Negative) Urine RBC (0-2) /hpf Urine WBC (0-5) /hpf Ur Squamous Epith Cells (0-5) /hpf Amorphous Sediment Urine Bacteria (NONE) /hpf Discharge Plan Discharge Patient Disposition: Admitted As Inpatient Clinical Impression: Acute on chronic respiratory failure, Acute exacerbation of CHF (congestive heart failure), Acute hyperkalemia, Acute hyponatremia Condition: Stable Coding Level of Care Code ED Licensing Analyst for g Fwd Exam Comprehensive
[2020-12-31 11:20] LABS: ABG PCO2 98.2 mmHg (35-45)
[2020-12-31 11:23] LABS: Basophils % 0.4 %; Eosinophils # 0.3 10^3/uL (0.0-0.8); Eosinophils % 5.6 %; Hematocrit 35.1 % (42.0-52.0); Hemoglobin 10.6 g/dL (11.7-16.6); Lymphocytes # 1.2 10^3/uL (0.8-4.8); Lymphocytes % 24.7 %; Mean Corpuscular HGB Conc 30.2 g/dL (30.0-36.0); Mean Corpuscular Hemoglobin 29.8 pg (28.0-34.0); Mean Corpuscular Volume 98.6 fL (80-94); Mean Platelet Volume 9.9 fL (7.4-10.4); Monocytes # 0.6 10^3/uL (0.2-0.9); Monocytes % 12.3 %; Neutrophils # 2.76 10^3/uL (1.8-7.7); Neutrophils % 56.8 %; Nucleated Red Blood Cells % 0 %; Platelet Count 205 10^3/cmm (130-400); Red Blood Count 3.56 10^6/uL (4.1-5.3); Red Cell Distribution Width 15.3 % (12.1-15.1); White Blood Count 4.9 10^3/uL (4.0-10.0)
[2020-12-31 11:31] LABS: INR 3.53 (0.8-1.2)
[2020-12-31 11:37] LABS: Lactic Sepsis W/Reflex 0.7 mmol/L (0.5-2.2); Troponin(5th) Baseline 16 ng/L (0-15)
--- NOTE | 2020-12-31 11:45 | PC.NURSE ---
patient was able to answer questions on arrival. denied any pain.
--- NOTE | 2020-12-31 11:50 | PC.NURSE ---
bilateral lower extremities edema noted. BiPAP being placed shortly after arrival.
[2020-12-31 12:05] LABS: Alanine Aminotransferase 13 U/L (0-41); Albumin Level 3.4 g/dL (3.5-5.2); Alkaline Phosphatase 85 IU/L (40-130); Anion Gap 8.5 (5-19); Aspartate Amino Transferase 28 U/L (0-40); Blood Urea Nitrogen 11 mg/dL (8-23); Calcium 9.2 mg/dL (8.5-10.5); Carbon Dioxide 38 mmol/L (22-29); Chloride 88 mmol/L (98-107); Creatine Phosphokinase 46 U/L (39-308); Globulin 3.2 g/dL (1.3-4.6); Glomerular Filtration Rate 136.1 mL/min (90-130); Glucose 105 mg/dL (65-115); NT Pro B Type Natriuretic Pept 921 pg/mL (0-125); Osmolality Calculated 268 mOsm/kg (285-295); Potassium 5.5 mmol/L (3.5-5.1); Sodium 129 mmol/L (136-145); Total Bilirubin 0.8 mg/dL (0.15-1.2); Total Protein 6.6 g/dL (6.6-8.7)
[2020-12-31] MEDS: FUROsemide 10 mg/mL SDV 4mL 40 MG IVP (12:15)
[2020-12-31 13:00] LABS: Urine Appearance Clear (CLEAR); Urine Color Straw (Yellow)
[2020-12-31 13:01] LABS: Add Urine Microscopic? YES; Bilirubin Urine Neg (Negative); Blood Urine 3+ (Negative); Glucose Urine UA Norm (Normal); Ketones Urine Negative (Negative); Leukocyte Esterase Urine Negative (Negative); Nitrate Urine Negative (Negative); Protein Urine Neg (Negative); RBC Urine 15-25 /hpf (0-2); Urobilinogen Urine Norm (Negative); pH Urine 5 (5-7)
[2020-12-31 13:02] LABS: Add Urine Culture? No
--- NOTE | 2020-12-31 13:10 | ECG_ITS ---
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 Measurements Intervals [place] Rate: 58 P: -8 [place]: 225 QRS: -22 QRSD: 113 T: 80 QT: 406 QTc: 399 Interpretive Statements SINUS BRADYCARDIA WITH FIRST DEGREE AV BLOCK POSSIBLE LATERAL MYOCARDIAL INFARCTION [30 ms Q WAVE IN I/aVL/V5/V6], OF INDETERMINATE AGE Compared to ECG 12/31/2020 11:19:00 Sinus rhythm no longer present Myocardial infarct finding still present Electronically Signed On 12-31-2020 21:37:51 CDT by Clovis Dave M.D. [id number]
--- NOTE | 2020-12-31 13:36 | PC.NURSE ---
patient is more awake and alert, denied any pain, no acute distress noted.
[2020-12-31 14:13] LABS: ABG PCO2 83.1 mmHg (35-45); ABG PH Result 7.35 (7.35-7.45); Alveolar-Arterial Oxygen Gradi 8.8 mmHg (5-10); Arterial Blood Gas Hematocrit 33.7 % (42-52); Base Excess ABG 16.4 mmol/L (-2.0-2.0); Blood Gas Allen Test Pos; Blood Gas Operator Identificat CAK; Blood Gas Sample Site Radial, right; Blood Gas Sample Type Arterial; Carboxyhemoglobin 1.7 %THgb (0.4-20.1); HCO3 ABG 45.4 mmol/L (22-26); HGB O2 Sat 95.5 % (95-100); Ionized Calcium Level - ABG 1.3 mmol/L (1.1-1.4); Methemoglobin < 0.0 % (0.4-1.5); Oxygen Device BIPAP; Oxygen Saturation ABG 97.1; PO2 ABG 83.4 mmHg (80.0-100.0)
[2020-12-31 14:36] LABS: Troponin 5 2HR 13.81 ng/L (0-15)
[2020-12-31 14:40] LABS: Troponin 5 2HR Delta -2.19 ABS# (0-10)
[2020-12-31 16:01] LABS: Procalcitonin 0.04 ng/mL (0-0.5)
--- NOTE | 2020-12-31 16:18 | PM.HP ---
Providers/Chief Complaint Admitting Physician: Harris Pierson MD Primary Care Provider: Robert Mustafa Chief Complaint: syncope History of Present Illness Nhan Sol is a 65 year old male with a past medical history of chronic hypoxic hypercarbic respiratory failure, on 2 to 3 L nasal cannula, obesity hypoventilation syndrome, morbid obesity, atrial fibrillation on Coumadin, who presents to [facility] due to complaints of shortness of breath. Patient has a history of chronic hypoxic hypercarbic respiratory failure, he has been complaining of worsening shortness of breath over the last few days, he was supposed to follow-up with Dr. Patel today, but had a telehealth visit, was quite hypoxic during the visit, quite somnolent, so EMS was dispatched out to his home, here he is complaining of shortness of breath, no cough, no fevers, no known exposure to COVID-19, I could not get a clear answer from him about the Covid vaccine, as he is quite drowsy, but does follow commands, alert to person, to place, not to time, does follow commands of squeezing my fingers, on admission his ABG showed respiratory acidosis with a PCO2 98.2, pH 7.25, PO2 147, bicarb 43.3. After 3 hours on the BiPAP, his repeat ABG showed a pH of 7.35, PCO2 83.1, PO2 83.4, bicarb 45.4, was given Lasix. Hospitalist team was called for admission. Review of Systems Const: Denies: fever(s) or chills Card: Denies: chest pain or palpitations Resp: Reports: dyspnea GI: Denies: abdominal pain, nausea or vomiting : Denies: difficulty urinating Neuro: Denies: headache(s) Medications/Allergies Home Medications Medication Instructions Recorded Confirmed Last Taken Type lisinopril 10 mg PO DAILY@0500 07/14/20 12/31/20 12/31/20 History metformin 500 mg PO DAILY@0500 07/14/20 12/31/20 12/31/20 History omeprazole 40 mg PO DAILY 10/17/20 12/31/20 12/31/20 History aspirin 81 mg PO DAILY 12/31/20 12/31/20 12/31/20 History furosemide 40 mg PO BID 12/31/20 12/31/20 12/31/20 History hydrocodone-acetaminophen 1 tab PO Q6H PRN 12/31/20 12/31/20 12/31/20 History paroxetine HCl 20 mg PO DAILY 12/31/20 12/31/20 12/31/20 History potassium chloride 20 meq PO DAILY 12/31/20 12/31/20 12/31/20 History sotalol 120 mg PO BID 12/31/20 12/31/20 12/31/20 History tamsulosin 0.4 mg PO DAILY 12/31/20 12/31/20 12/31/20 History warfarin See Rx Instructions .ROUTE .COMPLEX 12/31/20 12/31/20 12/31/20 History 7.5 mg Allergies Allergy/AdvReac Type Severity Reaction Status Date / Time tape Allergy Unknown Uncoded 12/31/20 09:00 PFSH Acute PFSH: Medical History Atrial fibrillation Chronic anticoagulation Diabetes mellitus, type II GERD (gastroesophageal reflux disease) History of gastric ulcer with perforation Hypertension Morbid obesity with BMI of 50.0-59.9, adult Pneumonia Recurrent falls Surgical History History of esophagogastroduodenoscopy History of exploratory laparotomy for perforated gastric ulcer Family History Father Cancer lung Mother Asthma CAD (coronary artery disease) Sister Cerebral aneurysm Social History Smoking and tobacco status: former smoker Quit status (tobacco): has quit using tobacco Year quit tobacco: 1978 - PD x 7 Years Second hand smoke exposure: Yes Smoking risk assessment/counseling performed?: No Alcohol intake: current Alcohol intake frequency: few times a week Alcohol type: beer Counseling given: No Counseling given: No Lives independently: Yes Household members: family Marital status: Current occupational status: disabled Previous occupational history: history of working in [employer] History of recent travel: No Current gender identity: Male Vitals/I&O/Wt Last Vital Signs Temp 97.8 F 12/31/20 15:45 Pulse 67 12/31/20 16:05 Resp 20 H 12/31/20 16:05 BP 173/93 07/02/21 16:05 Pulse Ox 89 L 12/31/20 16:05 12/31/20 12/31/20 12/31/20 06:59 14:59 22:59 Output Total 1350 / 1350 Balance -1350 / -1350 Weight last 48 hrs Weight 199.581 kg Physical Exam Const: COMMON NORMALS: no acute distress Eye: COMMON NORMALS: Equal, round and reactive pupils present GENERAL EYE: appearance normal, both eyes and all related structures PUPIL: Yes Equal, round and reactive pupils present Neck/C-Spine: COMMON NORMALS: full ROM, no lymphadenopathy and no JVD THYROID: Thyroid normal Lymph: LYMPHATIC: no lymphadenopathy noted Resp: COMMON NORMALS: normal respiratory effort, No retractions, No use of accessory muscles and clear to auscultation bilaterally AUSCULTATION: clear to auscultation bilaterally Cardio: COMMON NORMALS: regular rate, regular rhythm, S1 normal heart sound present, S2 normal heart sound present, No gallops present (Cardio), No clicks present (Cardio) and No murmurs present (Cardio) RATE: regular rate RHYTHM: regular rhythm HEART SOUNDS: S1 normal heart sound present and S2 normal heart sound present GI: COMMON NORMALS: Normal to inspection, nondistended, normoactive bowel sounds present, Soft to palpation and non-tender PALPATION: Yes Soft to palpation and Yes No hepatosplenomegaly present Extremity: COMMON NORMALS: normal to inspection and full ROM Neuro: COMMON NORMALS: patient oriented x3 and CN's II-XII intact bilaterally Psych: COMMON NORMALS: mental status grossly normal and Normal thought process present Urinary Catheter Management^: Willingham: Cath Placed During This Visit: yes Urinary Catheter Date of Insertion: 12/31/20 Urinary Catheter Time of Insertion: 12:41 Data : 12/31/20 11:12 12/31/20 11:12 A&P Assessment and plan (1) Acute on chronic respiratory failure: -Secondary to obesity hypoventilation syndrome, diastolic CHF Plan: -Admit to ICU -Continue BiPAP, schedule during the day for now, schedule during the night -Neurochecks, aspiration precautions -Repeat ABG at 6 PM -Willingham catheter in place -Received 40 mg of Lasix in the ER, continue Bumex 1 mg every 12 hours starting at 6 PM -Fluid restriction 1500cc -Monitor respiratory status, monitor urine output, monitor creatinine, monitor potassium -Atrial fibrillation, hold Coumadin, continue sotalol -Hyperkalemia 5.5, receiving Lasix, Bumex, Kayexalate -Xpz-velujoj-xjbyqgqbe type 2 diabetes mellitus, low-dose sliding scale -N.p.o. -Full code -SCDs for DVT prophylaxis, on Coumadin, supratherapeutic INR 3.53, hold Coumadin for now Status: Acute (2) Acute exacerbation of CHF (congestive heart failure): Status: Acute (3) On home oxygen therapy: Status: Chronic (4) Atrial fibrillation: Status: Chronic Qualifiers: Atrial fibrillation type: longstanding persistent Qualified Code(s): I48.11 - Longstanding persistent atrial fibrillation (5) Chronic anticoagulation: Status: Chronic (6) Diabetes mellitus, type II: Status: Chronic Qualifiers: Diabetes mellitus long-term insulin use: with long-term use Diabetes mellitus complication status: without complication Qualified Code(s): E11.9 - Type 2 diabetes mellitus without complications; Z79.4 - FPC (current) use of insulin Attestations Medical Necessity Statement*: Patient requires hospitalization, for acute on chronic hypoxic hypercarbic respiratory failure, ICU, greater than 2 midnights, inpatient Coding Level of Care Code Acute Gastroenterology Teacher for [facility] Exam Comprehensive Diagnoses Acute on chronic respiratory failure J96.20 Acute exacerbation of CHF (congestive heart failure) I50.9 On home oxygen therapy Z99.81 Atrial fibrillation I48.11 Atrial fibrillation type: longstanding persistent Chronic anticoagulation Z79.01 Diabetes mellitus, type II E11.9; Z79.4 Diabetes mellitus long-term insulin use: with long-term use Diabetes mellitus complication status: without complication
[2020-12-31] MEDS: pantoprazole 40 mg SDV IVP (16:19)
--- NOTE | 2020-12-31 16:22 | PC.NURSE ---
1530 Pt arrived to unit, transferred to bed using lift mat and 4 staff. Pt on NRB upon arrival, switched to bipap per RT. 20/8, rate 12, fio2 35%. Decreased to 30% at 1555. Pt AAOx4. Makes all needs known. Answering questions appropriately but lethargic and falls asleep easily while answering. Wakes to light sternal rub. 18g PIV to RAC, flushes freely. Willingham cath draining freely to BSD. Urine pinkish in color. Denies any pain. Admission completed, orders processed. Will continue to monitor and assist PRN. HOB elevated, SR up x3.
[2020-12-31 16:23] LABS: Estmated Average Glucose 108; Hemoglobin A1C 5.4 % (4.0-6.0)
--- NOTE | 2020-12-31 17:10 | ECG_ITS ---
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 Measurements Intervals [place] Rate: 60 P: 12 TN: 201 QRS: -23 QRSD: 112 T: 79 QT: 396 QTc: 397 Interpretive Statements SINUS RHYTHM WITH MARKED SINUS ARRHYTHMIA BORDERLINE LEFT AXIS DEVIATION [QRS AXIS < -20] MODERATE INTRAVENTRICULAR CONDUCTION DELAY [110+ ms QRS DURATION] Compared to ECG 12/31/2020 13:32:59 Intraventricular conduction delay now present Sinus bradycardia no longer present First degree AV block no longer present Myocardial infarct finding no longer present Electronically Signed On 12-31-2020 21:36:11 CDT by Clovis Dave M.D. [email or web address] Entertainmentglend[facility].[employer]/store/OM/[id number]/[id number]
[2020-12-31] MEDS: bumetanide 0.25 mg/mL SDV 4 mL 1 MG IV (17:33)
[2020-12-31] MEDS: sotalol 80 mg Tablet 120 MG PO (17:33)
[2020-12-31 17:45] LABS: Glucose Point of Care 99 mg/dL (70-110)
[2020-12-31 18:00] LABS: ABG PH Result 7.39 (7.35-7.45); Arterial Blood Gas Hematocrit 33.5 % (42-52); Base Excess ABG 17.8 mmol/L (-2.0-2.0); Blood Gas Allen Test Pos; Blood Gas Operator Identificat CAK; Blood Gas Sample Site Radial, left; Blood Gas Sample Type Arterial; Oxygen Device BIPAP; PO2 ABG 55.2 mmHg (80.0-100.0)
[2020-12-31 18:01] LABS: ABG PCO2 75.7 mmHg (35-45)
[2020-12-31 18:08] LABS: Troponin 5 6HR 17.31 ng/L (0-15); Troponin 5 6HR Delta 1.31 ng/L (0-12)
--- NOTE | 2020-12-31 18:44 | PC.NURSE ---
Pt resting in bed. Bipap in place. ABG's improving, settings adjusted per RT. Pt awakens with light sternal rub but is AAOx4 when awakened. No other issues
[2020-12-31] MEDS: cloNIDine 0.1 mg Tablet PO (19:41)
[2020-12-31] MEDS: amlodipine 10 mg Tablet PO (19:42)
[2021-01-01] VITALS (176 sets, daily range): BP systolic 96–163; BP diastolic 51–100; PULSE 46–79; RESP 14–32; TEMP 36.2–36.9; O2SAT 89–98
[2021-01-01 05:31] LABS: ABG PH Result 7.39 (7.35-7.45); Arterial Blood Gas Hematocrit 34.1 % (42-52); Base Excess ABG 18.3 mmol/L (-2.0-2.0); Blood Gas Allen Test Pos; Blood Gas Operator Identificat JB; Blood Gas Sample Site Radial, left; Blood Gas Sample Type Arterial; HCO3 ABG 46.7 mmol/L (22-26); Oxygen Device BIPAP; PO2 ABG 74.8 mmHg (80.0-100.0)
[2021-01-01] MEDS: bumetanide 0.25 mg/mL SDV 4 mL 1 MG IV (05:49)
[2021-01-01] MEDS: cloNIDine 0.1 mg Tablet PO ×2 (05:49→18:45)
[2021-01-01] MEDS: lisinopril 10 mg Tablet PO (05:49)
[2021-01-01] MEDS: pantoprazole 40 mg SDV IVP ×2 (05:49→16:27)
--- NOTE | 2021-01-01 06:30 | PC.NURSE ---
Shift Summary Patient had an uneventful night, had no complaints of pain all evening. He wore the BIPAP all night, BIPAP was set at 40% FiO2. Patient has an IV in the right AC that is saline locked currently. Willingham catheter drained 3950 mls of clear bright red urine all evening and patient had no bowel movement. He has some scarring and scratches on his belly but no other skin issues are noted. Patient is very lethargic/tired, must perform light sternal rub to awaken him. Once awake patient is alert and oriented x3 but speech is delayed.
[2021-01-01 08:26] LABS: Glucose Point of Care 84 mg/dL (70-110)
[2021-01-01 08:36] LABS: ABG PCO2 77.8 mmHg (35-45)
[2021-01-01 09:08] LABS: Basophils % 0.4 %; Eosinophils # 0.2 10^3/uL (0.0-0.8); Eosinophils % 3.4 %; Hematocrit 37.9 % (42.0-52.0); Hemoglobin 11.4 g/dL (11.7-16.6); Lymphocytes # 0.9 10^3/uL (0.8-4.8); Lymphocytes % 17.7 %; Mean Corpuscular HGB Conc 30.1 g/dL (30.0-36.0); Mean Corpuscular Hemoglobin 30.1 pg (28.0-34.0); Mean Platelet Volume 10.1 fL (7.4-10.4); Monocytes # 0.7 10^3/uL (0.2-0.9); Monocytes % 14.3 %; Neutrophils # 3.18 10^3/uL (1.8-7.7); Nucleated Red Blood Cells % 0 %; Platelet Count 197 10^3/cmm (130-400); Red Blood Count 3.79 10^6/uL (4.1-5.3); Red Cell Distribution Width 15.7 % (12.1-15.1)
[2021-01-01] MEDS: sotalol 80 mg Tablet 120 MG PO ×2 (09:20→18:00)
[2021-01-01] MEDS: PARoxetine 20 mg Tablet PO (09:21)
[2021-01-01] MEDS: potassium chloride ER 20 mEq Tablet PO (09:21)
[2021-01-01] MEDS: tamsulosin 0.4 mg Capsule PO (09:21)
[2021-01-01] MEDS: aspirin 81 mg Chew Tablet PO (09:21)
[2021-01-01] MEDS: acetaZOLAMIDE 250 mg Tablet PO ×2 (09:21→20:11)
[2021-01-01] MEDS: amlodipine 10 mg Tablet PO (09:21)
[2021-01-01 09:29] LABS: Alanine Aminotransferase 13 U/L (0-41); Albumin Level 3.3 g/dL (3.5-5.2); Alkaline Phosphatase 82 IU/L (40-130); Aspartate Amino Transferase 25 U/L (0-40); Blood Urea Nitrogen 10 mg/dL (8-23); Calcium 9.7 mg/dL (8.5-10.5); Chloride 88 mmol/L (98-107); Chol HDL Ratio 2.43 mg/dL (1.0-5.00); Cholesterol 136 mg/dL (0-200); Globulin 3.2 g/dL (1.3-4.6); Glomerular Filtration Rate 167.9 mL/min (90-130); Glucose 87 mg/dL (65-115); HDL Cholesterol 56 mg/dL (60-100); LDL Cholesterol Calculated 68 mg/dL (50-129); Magnesium 1.6 mg/dL (1.7-2.3); NT Pro B Type Natriuretic Pept 714 pg/mL (0-125); Osmolality Calculated 282 mOsm/kg (285-295); Phosphorus 2.8 mg/dL (2.5-4.5); Sodium 137 mmol/L (136-145); Thyroid Stimulating Hormone 0.55 uIU/mL (0.27-4.20); Total Protein 6.5 g/dL (6.6-8.7); Triglycerides 62 mg/dL (0-150); VLDL Cholestrol Calculation 12 mg/dL (0-30)
[2021-01-01 09:39] LABS: Carbon Dioxide 41 mmol/L (22-29)
--- NOTE | 2021-01-01 10:33 | P.PN_ITS ---
Subjective Subjective: Interval history: Patient was seen this morning, he is alert oriented x3, follows commands, he still on BiPAP, a bit drowsy, but tells me that his breathing has improved, he diuresed over 6 L overnight, afebrile, he tells me he is hungry, would like to try to eat something Vitals/I&O/Wt Last Vital Signs Temp 97.5 F L 01/01/21 08:00 Pulse 56 L 01/01/21 08:38 Resp 30 H 01/01/21 08:00 BP 163/79 01/01/21 08:00 Pulse Ox 94 01/01/21 08:38 12/31/20 01/01/21 01/01/21 22:59 06:59 14:59 Intake Total 0 / 0 100 / 100 Output Total 1000 / 2350 3950 / 6300 1400 / 1400 Balance -1000 / -2350 -3850 / -6200 -1400 / -1400 Weight last 48 hrs Weight 199.581 kg Physical Exam Const: COMMON NORMALS: no acute distress and patient oriented x3 Resp: COMMON NORMALS: normal respiratory effort, No retractions, No use of accessory muscles and clear to auscultation bilaterally AUSCULTATION: clear to auscultation bilaterally Cardio: COMMON NORMALS: regular rate, regular rhythm, S1 normal heart sound present and S2 normal heart sound present RATE: regular rate RHYTHM: regular rhythm HEART SOUNDS: S1 normal heart sound present and S2 normal heart sound present GI: COMMON NORMALS: Normal to inspection, nondistended, normoactive bowel sounds present, Soft to palpation and non-tender PALPATION: Yes Soft to palpation OTHER: Obese abdomen, pannus present, with slight erythema Extremity: NARRATIVE EXTREMITY EXAM: 1+ pitting edema Neuro: COMMON NORMALS: patient oriented x3 Psych: COMMON NORMALS: mental status grossly normal Urinary Catheter Management^: Willingham: Cath Placed During This Visit: yes Reason for Continuing Indwelling Catheter: Accurate Measurement of Urinary Output in Critically Ill Patients Urinary Catheter Date of Insertion: 12/31/20 Urinary Catheter Time of Insertion: 12:41 Data : 01/01/21 08:36 01/01/21 08:36 Micro: Microbiology 12/31/20 17:17 Blood Culture - Preliminary Blood SPECIMEN COLLECTED 12/31/20 17:19 Blood Culture - Preliminary Blood SPECIMEN COLLECTED A&P Assessment and plan (1) Acute on chronic respiratory failure: -Secondary to obesity hypoventilation syndrome, diastolic CHF -pH 7.39, PCO2 77.8, bicarb 46.7 Plan: -Admit to ICU -Continue BiPAP, schedule during the day for now, schedule during the night -Neurochecks, aspiration precaution -Willingham catheter in place -Decrease Bumex to 1 mg every 24 hours, bicarb is 41, diuresed over 6 L overnight -Fluid restriction 1500cc -Monitor respiratory status, monitor urine output, monitor creatinine, monitor potassium -Atrial fibrillation, hold Coumadin, continue sotalol -Hyperkalemia 5.0, resolved -Ivk-wohoddf-zalntzbjt type 2 diabetes mellitus, low-dose sliding scale -N.p.o. -Full code -SCDs for DVT prophylaxis, on Coumadin, supratherapeutic INR 3.5, hold Coumadin for now Plan for today, continue BiPAP, received Bumex, monitor respiratory status, hopefully can de-escalate out of ICU in the next 24 hours Status: Acute (2) Acute exacerbation of CHF (congestive heart failure): Status: Acute (3) On home oxygen therapy: Status: Chronic (4) Atrial fibrillation: Status: Chronic Qualifiers: Atrial fibrillation type: longstanding persistent Qualified Code(s): I48.11 - Longstanding persistent atrial fibrillation (5) Chronic anticoagulation: Status: Chronic (6) Diabetes mellitus, type II: Status: Chronic Qualifiers: Diabetes mellitus medical terminologist insulin use: with nursing home use Diabetes mellitus complication status: without complication Qualified Code(s): E11.9 - Type 2 diabetes mellitus without complications; Z79.4 - predatory animal exterminator (current) use of insulin Attestations Medical Necessity Statement*: Patient requires hospitalization for acute respiratory failure secondary to obesity hypoventilation, diastolic CHF, ICU admission, critical care time spent over 35 minutes Coding Level of Care Code Acute Lip Reading Teacher for [facility] Diagnoses Acute on chronic respiratory failure J96.20 Acute exacerbation of CHF (congestive heart failure) I50.9 On home oxygen therapy Z99.81 Atrial fibrillation I48.11 Atrial fibrillation type: longstanding persistent Chronic anticoagulation Z79.01 Diabetes mellitus, type II E11.9; Z79.4 Diabetes mellitus nursing home insulin use: with medical terminologist use Diabetes mellitus complication status: without complication
[2021-01-01] MEDS: acetaminophen 325 mg Tablet 650 MG PO (14:04)
[2021-01-01 17:41] LABS: Glucose Point of Care 100 mg/dL (70-110)
[2021-01-02] VITALS (148 sets, daily range): BP systolic 85–149; BP diastolic 39–71; PULSE 41–73; RESP 13–33; TEMP 36.3–37.1; O2SAT 89–100
[2021-01-02] MEDS: acetaminophen 325 mg Tablet 650 MG PO (00:12)
--- NOTE | 2021-01-02 03:12 | PC.NURSE ---
PRN Pain Medication Patient reporting back pain of 10 on the numeric 1-10 pain scale, PRN Tylenol was given and patients pain was unrelieved 30 minutes later. Patient reports taking 4 Hydrocodone a day at home and says that helps relieve his pain. He asked if he could have Hydrocodone here in the hospital instead of the prescribed PRN Tylenol. Notified about patient request and he put in an order for PRN Hydocodone 325mg Q4 for pain and discontinued the PRN Tylenol order.
[2021-01-02 04:21] LABS: ABG PH Result 7.41 (7.35-7.45); Arterial Blood Gas Hematocrit 35.2 % (42-52); Base Excess ABG 14.5 mmol/L (-2.0-2.0); Blood Gas Allen Test Pos; Blood Gas Sample Site Radial, right; Blood Gas Sample Type Arterial; HCO3 ABG 41.7 mmol/L (22-26); Oxygen Device BIPAP; PO2 ABG 76.6 mmHg (80.0-100.0)
[2021-01-02 04:27] LABS: ABG PCO2 65.5 mmHg (35-45)
[2021-01-02] MEDS: pantoprazole 40 mg SDV IVP ×2 (05:44→16:35)
[2021-01-02] MEDS: lisinopril 10 mg Tablet PO (05:45)
[2021-01-02] MEDS: cloNIDine 0.1 mg Tablet PO (05:45)
--- NOTE | 2021-01-02 06:00 | PC.NURSE ---
Shift Summary Patient had an uneventful night. Remained on BIPAP at 40% FiO2. IV in the right arm AC is saline locked with no infusions running. His rosales catheter drained 850 mls of clear dark yellow urine all evening. Patient did not have a bowel movement all evening. He has no wounds noted at this time, abdomen has some scarring and stretch mcdowell.
[2021-01-02] MEDS: HYDROcodone-acetaminophen 10-325 mg Tablet 1 TAB PO ×4 (06:05→19:47)
[2021-01-02 07:30] LABS: Basophils % 0.6 %; Eosinophils # 0.2 10^3/uL (0.0-0.8); Eosinophils % 4.8 %; Hematocrit 33.9 % (42.0-52.0); Hemoglobin 10.3 g/dL (11.7-16.6); Lymphocytes # 1.2 10^3/uL (0.8-4.8); Lymphocytes % 24.5 %; Mean Corpuscular HGB Conc 30.4 g/dL (30.0-36.0); Mean Corpuscular Hemoglobin 29.6 pg (28.0-34.0); Mean Corpuscular Volume 97.4 fL (80-94); Monocytes # 0.5 10^3/uL (0.2-0.9); Monocytes % 10.6 %; Neutrophils # 2.85 10^3/uL (1.8-7.7); Neutrophils % 59.3 %; Nucleated Red Blood Cells % 0 %; Platelet Count 199 10^3/cmm (130-400); Red Blood Count 3.48 10^6/uL (4.1-5.3); White Blood Count 4.8 10^3/uL (4.0-10.0)
[2021-01-02 07:40] LABS: INR 3.27 (0.8-1.2)
[2021-01-02 07:55] LABS: Alanine Aminotransferase 8 U/L (0-41); Albumin Level 2.9 g/dL (3.5-5.2); Alkaline Phosphatase 64 IU/L (40-130); Aspartate Amino Transferase 18 U/L (0-40); Blood Urea Nitrogen 13 mg/dL (8-23); Calcium 8.9 mg/dL (8.5-10.5); Carbon Dioxide 39 mmol/L (22-29); Chloride 92 mmol/L (98-107); Creatine Phosphokinase 32 U/L (39-308); Globulin 2.6 g/dL (1.3-4.6); Glomerular Filtration Rate 113.9 mL/min (90-130); Glucose 79 mg/dL (65-115); Magnesium 1.6 mg/dL (1.7-2.3); NT Pro B Type Natriuretic Pept 467 pg/mL (0-125); Osmolality Calculated 283 mOsm/kg (285-295); Sodium 137 mmol/L (136-145); Total Bilirubin 0.9 mg/dL (0.15-1.2); Total Protein 5.5 g/dL (6.6-8.7)
[2021-01-02 07:55] LABS: Glucose Point of Care 91 mg/dL (70-110)
[2021-01-02] MEDS: tamsulosin 0.4 mg Capsule PO (09:09)
[2021-01-02] MEDS: amlodipine 10 mg Tablet PO (09:10)
[2021-01-02] MEDS: PARoxetine 20 mg Tablet PO (09:10)
[2021-01-02] MEDS: potassium chloride ER 20 mEq Tablet PO (09:10)
[2021-01-02] MEDS: sotalol 80 mg Tablet 120 MG PO (09:11)
[2021-01-02] MEDS: acetaZOLAMIDE 250 mg Tablet PO (09:12)
[2021-01-02] MEDS: aspirin 81 mg Chew Tablet PO (09:13)
--- NOTE | 2021-01-02 09:30 | PC.NURSE ---
Restart Sotalol 60mg Dr. Pizano at bedside, gave verbal orders to restart Sotalol 60 mg PO BID for tomorrow 01/03 at 0900. This nurse put the orders in.
--- NOTE | 2021-01-02 11:01 | P.PN_ITS ---
Subjective Subjective: Interval history: Patient was seen this morning, he is on BiPAP, no events overnight, no fevers, chills, no nausea, no vomiting, he is feeling well this morning, Vitals/I&O/Wt Last Vital Signs Temp 98.0 F 01/02/21 08:00 Pulse 50 L 01/02/21 08:00 Resp 19 H 01/02/21 08:00 BP 101/48 01/02/21 08:12 Pulse Ox 95 01/02/21 08:00 01/01/21 01/02/21 01/02/21 22:59 06:59 14:59 Intake Total 360 / 360 Output Total 1000 / 2400 850 / 3250 Balance -1000 / -2400 -850 / -3250 360 / 360 Weight last 48 hrs Weight 199.581 kg Physical Exam Const: COMMON NORMALS: no acute distress and patient oriented x3 Resp: COMMON NORMALS: normal respiratory effort, No retractions, No use of accessory muscles and clear to auscultation bilaterally AUSCULTATION: clear to auscultation bilaterally Cardio: COMMON NORMALS: regular rate, regular rhythm, S1 normal heart sound present and S2 normal heart sound present RATE: regular rate RHYTHM: regular rhythm HEART SOUNDS: S1 normal heart sound present and S2 normal heart sound present GI: COMMON NORMALS: Normal to inspection, nondistended, normoactive bowel sounds present, Soft to palpation and non-tender PALPATION: Yes Soft to palpation Extremity: COMMON NORMALS: no pedal edema Neuro: COMMON NORMALS: patient oriented x3 Psych: COMMON NORMALS: mental status grossly normal Urinary Catheter Management^: Willingham: Cath Placed During This Visit: yes Reason for Continuing Indwelling Catheter: Accurate Measurement of Urinary Output in Critically Ill Patients Urinary Catheter Date of Insertion: 12/31/20 Urinary Catheter Time of Insertion: 12:41 Data : 01/02/21 07:08 01/02/21 07:08 Micro: Microbiology 12/31/20 17:17 Blood Culture - Preliminary Blood NEGATIVE TO DATE 12/31/20 17:19 Blood Culture - Preliminary Blood NEGATIVE TO DATE A&P Assessment and plan (1) Acute on chronic respiratory failure: -Secondary to obesity hypoventilation syndrome, diastolic CHF -pH 7.41, PCO2 65.5 Plan: -Moved to general medical floors -As needed BiPAP during the day, schedule during the night -Neurochecks, aspiration precaution -Willingham catheter in place -Decrease Bumex to 1 mg every 24 hours, creatinine 0.7, potassium 4.0, diuresed over 3 L -Fluid restriction 1500cc -Monitor respiratory status, monitor urine output, monitor creatinine, monitor potassium -Atrial fibrillation, INR 3.27, pharmacy to dose Coumadin, continue sotalol -Hyperkalemia 5.0, resolved -Uzq-vmzxjxa-hrsahyony type 2 diabetes mellitus, low-dose sliding scale -Diabetic diet -Full code -SCDs for DVT prophylaxis, on Coumadin, INR 3.27, pharmacy to dose Coumadin -[facility] has been notified about patient's AVAPS, AVAPS has been ordered, patient needs to be discharged with AVAPS for home Plan for today, continue BiPAP, continue Bumex, moved to second floors, PT OT, hopefully can discharge 24 hours Status: Acute (2) Acute exacerbation of CHF (congestive heart failure): Status: Acute (3) On home oxygen therapy: Status: Chronic (4) Atrial fibrillation: Status: Chronic Qualifiers: Atrial fibrillation type: longstanding persistent Qualified Code(s): I48.11 - Longstanding persistent atrial fibrillation (5) Chronic anticoagulation: Status: Chronic (6) Diabetes mellitus, type II: Status: Chronic Qualifiers: Diabetes mellitus [facility] insulin use: with [facility] use Diabetes mellitus complication status: without complication Qualified Code(s): E11.9 - Type 2 diabetes mellitus without complications; Z79.4 - USP (current) use of insulin Attestations Medical Necessity Statement*: Patient requires hospitalization for acute respiratory failure with hypercarbia and hypoxia secondary to CHF Coding Level of Care Code Acute Safety Scientist for [facility] Diagnoses Acute on chronic respiratory failure J96.20 Acute exacerbation of CHF (congestive heart failure) I50.9 On home oxygen therapy Z99.81 Atrial fibrillation I48.11 Atrial fibrillation type: longstanding persistent Chronic anticoagulation Z79.01 Diabetes mellitus, type II E11.9; Z79.4 Diabetes mellitus director long term care insulin use: with [facility] use Diabetes mellitus complication status: without complication
[2021-01-02 11:20] LABS: Glucose Point of Care 118 mg/dL (70-110)
[2021-01-02] MEDS: bumetanide 0.25 mg/mL SDV 4 mL 1 MG IV (11:34)
[2021-01-02] MEDS: sodium chloride 0.9% 1,000 ML 75 ML IV (14:27)
[2021-01-02 16:50] LABS: Glucose Point of Care 111 mg/dL (70-110)
--- NOTE | 2021-01-02 16:58 | ECG_ITS ---
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: : 1955 Requested By: Harris Pierson Order Number: [id number] Reading MD: ALEXANDRA MCADAMS Measurements Intervals [place] Rate: 50 P: 2 DE: 223 QRS: -11 QRSD: 120 T: 84 QT: 474 QTc: 436 Interpretive Statements SINUS BRADYCARDIA WITH FIRST DEGREE AV BLOCK POSSIBLE LATERAL MYOCARDIAL INFARCTION [30 ms Q WAVE IN I/aVL/V5/V6], OF INDETERMINATE AGE Compared to ECG 12/31/2020 17:48:39 First degree AV block now present Myocardial infarct finding now present Sinus rhythm no longer present Sinus arrhythmia no longer present Intraventricular conduction delay no longer present Electronically Signed On 01-03-2021 18:49:47 CDT by ALEXANDRA MCADAMS [email or web address] and [email or web address]/[id number]
[2021-01-02] MEDS: sodium chloride 0.9% 500 ML IV (17:01)
--- NOTE | 2021-01-02 18:58 | ECG_ITS ---
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: : 1955 Requested By: Harris Pierson Order Number: [id number] Reading MD: ALEXANDRA MCADAMS Measurements Intervals [place] Rate: 51 P: 2 NV: 208 QRS: -8 QRSD: 125 T: 75 QT: 454 QTc: 422 Interpretive Statements SINUS BRADYCARDIA WITH SINUS ARRHYTHMIA LATERAL MYOCARDIAL INFARCTION [40+ ms Q WAVE AND/OR ST/T ABNORMALITY IN I/aVL/V5/V6], PROBABLY OLD Compared to ECG 01/02/2021 18:29:34 First degree AV block no longer present Myocardial infarct finding still present Electronically Signed On 01-03-2021 18:54:22 CDT by ALEXNADRA MCADAMS [email or web address] medical [email or web address].[employer]/[email or web address]/[id number]
[2021-01-02 19:04] LABS: Troponin(5th) Baseline 30 ng/L (0-15)
[2021-01-02 19:05] LABS: Alanine Aminotransferase 10 U/L (0-41); Albumin Level 2.9 g/dL (3.5-5.2); Alkaline Phosphatase 63 IU/L (40-130); Blood Urea Nitrogen 19 mg/dL (8-23); Calcium 8.7 mg/dL (8.5-10.5); Carbon Dioxide 37 mmol/L (22-29); Chloride 91 mmol/L (98-107); Globulin 2.7 g/dL (1.3-4.6); Glomerular Filtration Rate 75.5 mL/min (90-130); Glucose 92 mg/dL (65-115); Osmolality Calculated 282 mOsm/kg (285-295); Sodium 135 mmol/L (136-145); Total Bilirubin 0.8 mg/dL (0.15-1.2); Total Protein 5.6 g/dL (6.6-8.7)
[2021-01-02 19:10] LABS: Anion Gap 11.3 (5-19); Potassium 4.3 mmol/L (3.5-5.1)
[2021-01-02 19:11] LABS: Aspartate Amino Transferase 23 U/L (0-40)
--- NOTE | 2021-01-02 20:48 | P.CONIM_ITS ---
Providers/Reason For Consult Consulting Physician/Specialty*: Cardiology Reason for Consult*: Bradycardia Attending Physician: Harris Pierson MD Primary Care Provider: Robert Mustafa History of Present Illness History of Present Illness Nhan Sol is a 65 year old male past medical history significant for morbid obesity, diabetes mellitus, obstructive sleep apnea, atrial fibrillation on sotalol, history of hypoxia hypercapenia diastolic heart failure was admitted with hypoxia and hypercapnia decompensated heart failure was treated with BiPAP antibiotics and diuretics. Patient was noted to have bradycardia with worsening of renal function which is improving now. Renal dysfunction was thought to be prerenal etiology now nephrology is on board. We have been asked to see patient as he was noted to be bradycardic. Currently denies any complaint including chest pain fever PND orthopnea he appeared to be volume euvolemic and rather than right side. Patient is in sinus rhythm with sinus bradycardia. Patient is on 120 mg of sotalol. Review of Systems General: Reports: 10 or more systems reviewed and unremarkable except in HPI and below Const: Denies: fever(s), chills or fatigue Eyes: Denies: change in vision, blurry vision or eye redness ENMT: Denies: throat pain, enlarged tonsils, swelling of lips/tongue, ear or mastoid pain or nasal congestion Card: Denies: chest pain, palpitations, irregular heart rhythm, edema, dyspnea on exertion or orthopnea Resp: Reports: dyspnea; Denies: productive cough or non-productive cough GI: Denies: abdominal pain, nausea, vomiting, diarrhea or GI cramping : Denies: flank pain, difficulty urinating, urinary frequency or urinary urgency Musc: Denies: neck pain, back pain, extremity pain, joint pain, joint redness, limited range of motion or muscle weakness Skin/Breast: Denies: rash, pruritus, erythema, skin pain or skin tenderness Neuro: Denies: headache(s), numbness in extremities, weakness in extremities, sensory changes, difficulty walking, dizziness, confusion or Slurred speech present Psych: Denies: anxiety or depression Endo: Denies: polyuria All/Imm: Denies: urticaria, throat swelling or tongue swelling Meds/Allergies Home Medications and Allergies Home Medications Medication Instructions Recorded Confirmed Last Taken Type lisinopril 10 mg PO DAILY@0500 07/14/20 12/31/20 12/31/20 History metformin 500 mg PO DAILY@0500 07/14/20 12/31/20 12/31/20 History omeprazole 40 mg PO DAILY 10/17/20 12/31/20 12/31/20 History aspirin 81 mg PO DAILY 12/31/20 12/31/20 12/31/20 History furosemide 40 mg PO BID 12/31/20 12/31/20 12/31/20 History hydrocodone-acetaminophen 1 tab PO Q6H PRN 12/31/20 12/31/20 12/31/20 History paroxetine HCl 20 mg PO DAILY 12/31/20 12/31/20 12/31/20 History potassium chloride 20 meq PO DAILY 12/31/20 12/31/20 12/31/20 History sotalol 120 mg PO BID 12/31/20 12/31/20 12/31/20 History tamsulosin 0.4 mg PO DAILY 12/31/20 12/31/20 12/31/20 History warfarin See Rx Instructions .ROUTE .COMPLEX 12/31/20 12/31/20 12/31/20 History 7.5 mg Allergies Allergy/AdvReac Type Severity Reaction Status Date / Time tape Allergy Unknown Uncoded 12/31/20 09:00 Current Medications Current Medications Generic Name Dose Route Start Last Admin Trade Name Freq PRN Reason Stop Dose Admin Hydrocodone Bitart/Acetaminophen 1 tab 01/02/21 01:18 01/02/21 19:47 Hydrocodone-Acetaminophen 10-325 Mg Tablet PO 1 tab Q4H PRN Administration MODERATE PAIN Amlodipine Besylate 10 mg 12/31/20 18:45 01/02/21 09:10 Amlodipine 10 Mg Tablet PO 10 mg DAILY KAI Administration Aspirin 81 mg 01/01/21 09:00 01/02/21 09:13 Aspirin 81 Mg Chew Tablet PO 81 mg DAILY KAI Administration Bumetanide 1 mg 01/02/21 11:00 01/02/21 11:34 Bumetanide 0.25 Mg/Ml Sdv 4 Ml IV 1 mg Q24H KAI Administration Sodium Chloride 1,000 mls @ 75 mls/hr 01/02/21 13:45 01/02/21 18:24 Sodium Chloride 0.9% IV 75 mls/hr .[id number] KAI Infusion Insulin Aspart 0 unit 12/31/20 18:00 01/02/21 17:09 Insulin Aspart 100 Unit/1 Ml SUBCUT Not Given TIDWM [facility] Protocol Lisinopril 10 mg 01/01/21 05:00 01/02/21 05:45 Lisinopril 10 Mg Tablet PO 10 mg DAILY@0500 KAI Administration Pantoprazole Sodium 40 mg 12/31/20 15:57 01/02/21 16:35 Pantoprazole 40 Mg Sdv IVP 40 mg Q12H KAI Administration Paroxetine HCl 20 mg 01/01/21 09:00 01/02/21 09:10 Paroxetine 20 Mg Tablet PO 20 mg DAILY KAI Administration Potassium Chloride 20 meq 01/01/21 09:00 01/02/21 09:10 Potassium Chloride Er 20 Meq Tablet PO 20 meq DAILY KAI Administration Sotalol HCl 120 mg 12/31/20 18:00 01/02/21 09:11 Sotalol 80 Mg Tablet PO 120 mg BID KAI Administration Tamsulosin HCl 0.4 mg 01/01/21 09:00 01/02/21 09:09 Tamsulosin 0.4 Mg Capsule PO 0.4 mg DAILY KAI Administration Warfarin Sodium 7.5 mg 01/02/21 14:00 01/02/21 14:15 Warfarin 7.5 Mg Tablet PO 7.5 mg SuMoWeFrSa@1400 KAI Administration PFSH Acute PFSH: Medical History (Updated 01/03/21 @ 16:58 by Logan Pizano MD) Atrial fibrillation Chronic anticoagulation Diabetes mellitus, type II GERD (gastroesophageal reflux disease) History of gastric ulcer with perforation Hypertension Morbid obesity with BMI of 50.0-59.9, adult Pneumonia Recurrent falls Surgical History History of esophagogastroduodenoscopy History of exploratory laparotomy for perforated gastric ulcer Family History Father Cancer lung Mother Asthma CAD (coronary artery disease) Sister Cerebral aneurysm Social History Smoking and tobacco status: former smoker Quit status (tobacco): has quit using tobacco Year quit tobacco: 1978 - 1PPD x 7 Years Second hand smoke exposure: Yes Smoking risk assessment/counseling performed?: No Alcohol intake: current Alcohol intake frequency: few times a week Alcohol type: beer Counseling given: No Counseling given: No Lives independently: Yes Household members: family Marital status: Current occupational status: disabled Previous occupational history: history of working in [employer] History of recent travel: No Current gender identity: Male Dietary Habits: Current diet type/program: regular Caffeine: No Vitals/I&O/Wt Last Vital Signs Temp 97.6 F 01/02/21 12:49 Pulse 47 L 01/02/21 20:47 Resp 15 01/02/21 18:19 BP 102/54 01/02/21 18:19 Pulse Ox 93 01/02/21 20:47 01/02/21 01/02/21 01/02/21 06:59 14:59 22:59 Intake Total 600 / 600 813.75 / 1413.75 Output Total 850 / 3250 150 / 150 50 / 200 Balance -850 / -3250 450 / 450 763.75 / 1213.75 Physical Exam Narrative: EXAM NARRATIVE: GENERAL: Patient is alert, awake and oriented x3. NECK: No jugular vein distension. HEENT: No cyanosis. No icterus. No pallor. HEART: Regular S1 and S2. No murmur, rub or gallop. LUNGS: Clear to auscultate bilaterally. ABDOMEN: Soft, nontender and nondistended. Positive bowel sounds. No guarding, rebound or tenderness. CENTRAL NERVOUS SYSTEM: Grossly nonfocal. EXTREMITIES: Lower extremities without edema bilaterally. Urinary Catheter Management^: Willingham: Cath Placed During This Visit: yes Reason for Continuing Indwelling Catheter: Accurate Measurement of Urinary Output in Critically Ill Patients Urinary Catheter Date of Insertion: 12/31/20 Urinary Catheter Time of Insertion: 12:41 Data Micro: Micro: Microbiology 12/31/20 17:17 Blood Culture - Pr eliminary Blood NEGATIVE TO RODDY E 12/31/20 17:19 Blood Culture - Pr eliminary Blood NEGATIVE TO RODDY E A&P Assessment and plan (1) Atrial fibrillation: Patient is in sinus bradycardia may be due to multifactorial including high vagal tone obesity obstructive sleep apnea being on sarah cheri. I will reduce sotalol to 60 mg twice a day. We will continue to monitor. Status: Chronic Qualifiers: Atrial fibrillation type: longstanding persistent Qualified Code(s): I48.11 - Longstanding persistent atrial fibrillation (2) Acute exacerbation of CHF (congestive heart failure): Patient is on the right side will back off on diuretics. Status: Acute Qualifiers: Heart failure type: diastolic Qualified Code(s): I50.33 - Acute on chronic diastolic (congestive) heart failure (3) Acute on chronic respiratory failure: As per medicine appear to be stable. Status: Acute Qualifiers: Respiratory failure complication: hypoxia and hypercapnia Qualified Code(s): J96.21 - Acute and chronic respiratory failure with hypoxia; J96.22 - Acute and chronic respiratory failure with hypercapnia (4) Diabetes mellitus, type II: On insulin Status: Chronic Qualifiers: Diabetes mellitus assisted insulin use: with adjunct faculty for medical terminology use Diabetes mellitus complication status: without complication Qualified Code(s): E11.9 - Type 2 diabetes mellitus without complications; Z79.4 - CHCF (current) use of insulin (5) Morbid obesity with BMI of 50.0-59.9, adult: Advised to reduce weight Status: Acute Consult Attestations Medical Necessity Statement: Patient require continuation hospitalization for above defined care. Coding Level of Care Code New Pt Acute Cardiac/Vascular Sonographer for miriam Hdz Patient Type New History Detailed Exam Detailed Medical Decision Making Moderate Complexity Diagnoses Atrial fibrillation I48.11 Atrial fibrillation type: longstanding persistent Acute exacerbation of CHF (congestive heart failure) I50.33 Heart failure type: diastolic Acute on chronic respiratory failure J96.21; J96.22 Respiratory failure complication: hypoxia and hypercapnia Diabetes mellitus, type II E11.9; Z79.4 Diabetes mellitus assisted insulin use: with assisted use Diabetes mellitus complication status: without complication Morbid obesity with BMI of 50.0-59.9, adult E66.01; Z68.43
[2021-01-02 21:00] LABS: Troponin 5 2HR 30.97 ng/L (0-15); Troponin 5 2HR Delta 0.97 ABS# (0-10)
--- NOTE | 2021-01-02 21:30 | PC.NURSE ---
Restart Sotalol 60mg Dr. Pizano at bedside, gave verbal orders to restart Sotalol 60 mg BID tomorrow 01/03 at 0900.
--- NOTE | 2021-01-02 22:58 | ECG_ITS ---
[facility] Test Date: 2021-01-02 Pat Name: Nhan Sol Department: Room: [facility] Gender: Male [employer] Wellness Programs Director: : 1955 Requested By: Harris Pierson Order Number: [id number] Reading MD: ALEXANDRA MCADAMS Measurements Intervals [place] Rate: 44 P: 3 CA: 221 QRS: -6 QRSD: 121 T: 69 QT: 501 QTc: 432 Interpretive Statements SINUS BRADYCARDIA WITH FIRST DEGREE AV BLOCK POSSIBLE LATERAL MYOCARDIAL INFARCTION [30 ms Q WAVE IN I/aVL/V5/V6], PROBABLY OLD Compared to ECG 01/02/2021 20:42:34 First degree AV block now present Sinus arrhythmia no longer present Myocardial infarct finding still present Electronically Signed On 01-03-2021 18:53:29 CDT by ALEXANDRA MCADAMS [email or web address]
[2021-01-03] VITALS (71 sets, daily range): BP systolic 95–167; BP diastolic 39–74; PULSE 39–62; RESP 12–25; TEMP 36.3–36.6; O2SAT 89–100
[2021-01-03] MEDS: HYDROcodone-acetaminophen 10-325 mg Tablet 1 TAB PO ×5 (00:07→21:21)
[2021-01-03] MEDS: pantoprazole 40 mg SDV IVP ×2 (03:47→15:56)
[2021-01-03] MEDS: sodium chloride 0.9% 1,000 ML 75 ML IV ×2 (03:50→15:05)
[2021-01-03 05:23] LABS: Basophils % 0.4 %; Eosinophils # 0.4 10^3/uL (0.0-0.8); Eosinophils % 7.1 %; Hematocrit 35.2 % (42.0-52.0); Hemoglobin 10.3 g/dL (11.7-16.6); Lymphocytes # 1.6 10^3/uL (0.8-4.8); Lymphocytes % 30.5 %; Mean Corpuscular HGB Conc 29.3 g/dL (30.0-36.0); Mean Corpuscular Hemoglobin 29.5 pg (28.0-34.0); Mean Corpuscular Volume 100.9 fL (80-94); Mean Platelet Volume 10.5 fL (7.4-10.4); Monocytes # 0.8 10^3/uL (0.2-0.9); Monocytes % 14.6 %; Neutrophils # 2.53 10^3/uL (1.8-7.7); Neutrophils % 47.2 %; Nucleated Red Blood Cells % 0 %; Platelet Count 182 10^3/cmm (130-400); Red Blood Count 3.49 10^6/uL (4.1-5.3); Red Cell Distribution Width 16.5 % (12.1-15.1); White Blood Count 5.4 10^3/uL (4.0-10.0)
[2021-01-03 05:34] LABS: INR 2.82 (0.8-1.2)
[2021-01-03 05:39] LABS: ABG PH Result 7.37 (7.35-7.45); Arterial Blood Gas Hematocrit 30.4 % (42-52); Base Excess ABG 11.5 mmol/L (-2.0-2.0); Blood Gas Allen Test Pos; Blood Gas Sample Site Radial, right; Blood Gas Sample Type Arterial; HCO3 ABG 38.8 mmol/L (22-26); Oxygen Device BIPAP; PO2 ABG 88.6 mmHg (80.0-100.0)
--- NOTE | 2021-01-03 05:49 | PC.NURSE ---
Shift Summary Patient had an uneventful night. Right AC IV has NS infusing at 75 mls/hr. Willingham catheter drained 150 mls of clear dark urine out all evening. Patient reporting back pain of 10 on a numeric scale of 1-10, PRN pain medication has been given throughout night to try to relieve patients pain. Patient has no wounds noted on his skin and has some scarring and stretch mcdowell on the abdomen. Patient has worn BIPAP all evening, FIO2 is at 40%.
[2021-01-03 05:50] LABS: Alanine Aminotransferase 9 U/L (0-41); Albumin Level 2.9 g/dL (3.5-5.2); Alkaline Phosphatase 65 IU/L (40-130); Anion Gap 10.9 (5-19); Aspartate Amino Transferase 18 U/L (0-40); Blood Urea Nitrogen 23 mg/dL (8-23); Calcium 8.7 mg/dL (8.5-10.5); Carbon Dioxide 39 mmol/L (22-29); Chloride 90 mmol/L (98-107); Creatine Phosphokinase 24 U/L (39-308); Globulin 2.8 g/dL (1.3-4.6); Glomerular Filtration Rate 55.8 mL/min (90-130); Glucose 77 mg/dL (65-115); Magnesium 1.8 mg/dL (1.7-2.3); NT Pro B Type Natriuretic Pept 461 pg/mL (0-125); Osmolality Calculated 284 mOsm/kg (285-295); Phosphorus 3.6 mg/dL (2.5-4.5); Potassium 3.9 mmol/L (3.5-5.1); Sodium 136 mmol/L (136-145); Total Bilirubin 0.6 mg/dL (0.15-1.2); Total Protein 5.7 g/dL (6.6-8.7)
[2021-01-03 07:33] LABS: Glucose Point of Care 93 mg/dL (70-110)
--- NOTE | 2021-01-03 08:56 | PM.CONSULT ---
Providers/Reason For Consult Consulting Physician/Specialty*: jez reaves md /telenephrology Reason for Consult*: oliguric ARELI Attending Physician: Harris Pierson MD Primary Care Provider: Robert Mustafa History of Present Illness History of Present Illness Nhan Sol is a 65 year old male w/ PMHx of obesity, hypoxic hypercapneic resp acidosis, a fib, NIDDM, HTN, BPH. Pt has been having increasing admissions for hypercapneic resp acidosis. Pt was admitted on 12/31/20 w/ hypoxemia and hypercapneia. He was started on lasix/ bumex and bipap. He diuresed 6 liters between night of 12/31 to 01/01/21. His bumex dose was decreased on 01/01/21 to daily and held today as cr yael from 0.5 mg/dl at baseline to 0.7 and 1 mg/dl on 01/02/21 and cr of 1.3 mg/dl today. Review of Systems General: Reports: 10 or more systems reviewed and unremarkable except in HPI and below Narrative: weak, obese, chronic sob. improved ma, improved appetite, no cp, no neck pain, no rash, no diarrea, improved edema Meds/Allergies Home Medications and Allergies Home Medications Medication Instructions Recorded Confirmed Last Taken Type lisinopril 10 mg PO DAILY@0500 07/14/20 12/31/20 12/31/20 History metformin 500 mg PO DAILY@0500 07/14/20 12/31/20 12/31/20 History omeprazole 40 mg PO DAILY 10/17/20 12/31/20 12/31/20 History aspirin 81 mg PO DAILY 12/31/20 12/31/20 12/31/20 History furosemide 40 mg PO BID 12/31/20 12/31/20 12/31/20 History hydrocodone-acetaminophen 1 tab PO Q6H PRN 12/31/20 12/31/20 12/31/20 History paroxetine HCl 20 mg PO DAILY 12/31/20 12/31/20 12/31/20 History potassium chloride 20 meq PO DAILY 12/31/20 12/31/20 12/31/20 History sotalol 120 mg PO BID 12/31/20 12/31/20 12/31/20 History tamsulosin 0.4 mg PO DAILY 12/31/20 12/31/20 12/31/20 History warfarin See Rx Instructions .ROUTE .COMPLEX 12/31/20 12/31/20 12/31/20 History 7.5 mg Allergies Allergy/AdvReac Type Severity Reaction Status Date / Time tape Allergy Unknown Uncoded 12/31/20 09:00 Current Medications Current Medications Generic Name Dose Route Start Last Admin Trade Name Lillian PRN Reason Stop Dose Admin Hydrocodone Bitart/Acetaminophen 1 tab 01/02/21 01:18 01/03/21 05:15 Hydrocodone-Acetaminophen 10-325 Mg Tablet PO 1 tab Q4H PRN Administration MODERATE PAIN Amlodipine Besylate 10 mg 12/31/20 18:45 01/02/21 09:10 Amlodipine 10 Mg Tablet PO 10 mg DAILY KAI Administration Aspirin 81 mg 01/01/21 09:00 01/02/21 09:13 Aspirin 81 Mg Chew Tablet PO 81 mg DAILY KAI Administration Bumetanide 1 mg 01/02/21 11:00 01/02/21 11:34 Bumetanide 0.25 Mg/Ml Sdv 4 Ml IV 1 mg Q24H KAI Administration Sodium Chloride 1,000 mls @ 75 mls/hr 01/02/21 13:45 01/03/21 03:50 Sodium Chloride 0.9% IV 75 mls/hr .[id number] KAI Administration Insulin Aspart 0 unit 12/31/20 18:00 01/03/21 07:42 Insulin Aspart 100 Unit/1 Ml SUBCUT Not Given TIDWM KAI Protocol Lisinopril 10 mg 01/01/21 05:00 01/02/21 05:45 Lisinopril 10 Mg Tablet PO 10 mg DAILY@0500 KAI Administration Pantoprazole Sodium 40 mg 12/31/20 15:57 01/03/21 03:47 Pantoprazole 40 Mg Sdv IVP 40 mg Q12H KAI Administration Paroxetine HCl 20 mg 01/01/21 09:00 01/02/21 09:10 Paroxetine 20 Mg Tablet PO 20 mg DAILY KAI Administration Potassium Chloride 20 meq 01/01/21 09:00 01/02/21 09:10 Potassium Chloride Er 20 Meq Tablet PO 20 meq DAILY KAI Administration Sotalol HCl 120 mg 12/31/20 18:00 01/02/21 09:11 Sotalol 80 Mg Tablet PO 120 mg BID KAI Administration Tamsulosin HCl 0.4 mg 01/01/21 09:00 01/02/21 09:09 Tamsulosin 0.4 Mg Capsule PO 0.4 mg DAILY KAI Administration Warfarin Sodium 7.5 mg 01/02/21 14:00 01/02/21 14:15 Warfarin 7.5 Mg Tablet PO 7.5 mg SuMoWeFrSa@1400 KAI Administration PFSH Acute PFSH: Medical History Atrial fibrillation Chronic anticoagulation Diabetes mellitus, type II GERD (gastroesophageal reflux disease) History of gastric ulcer with perforation Hypertension Morbid obesity with BMI of 50.0-59.9, adult Pneumonia Recurrent falls Surgical History History of esophagogastroduodenoscopy History of exploratory laparotomy for perforated gastric ulcer Family History Father Cancer lung Mother Asthma CAD (coronary artery disease) Sister Cerebral aneurysm Social History Smoking and tobacco status: former smoker Quit status (tobacco): has quit using tobacco Year quit tobacco: 1978 - PD x 7 Years Second hand smoke exposure: Yes Smoking risk assessment/counseling performed?: No Alcohol intake: current Alcohol intake frequency: few times a week Alcohol type: beer Counseling given: No Counseling given: No Lives independently: Yes Household members: family Marital status: Current occupational status: disabled Previous occupational history: history of working in [employer] History of recent travel: No Current gender identity: Male Vitals/I&O/Wt Last Vital Signs Temp 97.6 F 01/03/21 04:00 Pulse 56 L 01/03/21 08:00 Resp 20 H 01/03/21 08:00 BP 129/55 01/03/21 07:30 Pulse Ox 97 01/03/21 08:00 01/02/21 01/03/21 01/03/21 22:59 06:59 14:59 Intake Total 813.75 / 1413.75 807.5 / 2221.25 236 / 236 Output Total 50 / 200 150 / 350 Balance 763.75 / 1213.75 657.5 / 1871.25 236 / 236 Physical Exam Narrative: EXAM NARRATIVE: obese in bed, good oxygenation vss heent- nc/at, eomi, anicteric neck obese lungs- basal crackles heart reg, no rub abd soft, nt, nd, +BS ext 1+ to trace b/l leg edema neuro- a,a, o x 3 mood good Urinary Catheter Management^: Willingham: Cath Placed During This Visit: yes Reason for Continuing Indwelling Catheter: Accurate Measurement of Urinary Output in Critically Ill Patients Urinary Catheter Date of Insertion: 12/31/20 Urinary Catheter Time of Insertion: 12:41 A&P Additional A&P Information 65 yr old man morbid obesity 1. obesity induced resp hypercapneic acidosis- pco2 improved from 98 to 67 2. ARELI - likely from hypotension, large diuresis and being on karen-i which decreased afferent glomerular perfusion/ pressure -however u/a w/ hematuria- will repeat and send serologies for possible renal - pulm syndrome 3. anemia 4. met alkalosis- compensation for hypercapneic resp acidosis and from diuresis seen and examine dw/ RN- telehealth visit discussed w/ Dr. Pierson time spent 55 minutes Consult Attestations Medical Necessity Statement: diastolic dysfunction, areli, hypercapneic resp acidosis Time Spent in Patient Care: Greater than 35 minutes (>than 50% of time spent in counselling and/or direct pt care on unit). Coding Level of Care Code Acute Hoe Runner for Daisy Hdz
--- NOTE | 2021-01-03 09:15 | USR_ITS ---
PROCEDURE INFORMATION: Exam: US Retroperitoneal; Complete; Kidneys and Bladder Exam date and time: 01/03/2021 9:15 AM Age: 65 years old Clinical indication: Other: Christiano TECHNIQUE: Imaging protocol: Real-time ultrasound of the retroperitoneum with image documentation. Complete exam focused on the kidneys and bladder. COMPARISON: No relevant prior studies available. FINDINGS: Right kidney: Obscuration of the right kidney by bowel gas. Left kidney: Poorly visualized left kidney measures 11.6 cm in length. No hydronephrosis. Urinary bladder: Nonvisualization of decompressed bladder, containing Willingham catheter. US/US renal BI* [id number] IMPRESSION: Technically limited examination with nonvisualization of the right kidney and bladder.
[2021-01-03] MEDS: potassium chloride ER 20 mEq Tablet PO (09:38)
[2021-01-03] MEDS: sotalol 80 mg Tablet 60 MG PO ×2 (09:40→21:20)
[2021-01-03] MEDS: tamsulosin 0.4 mg Capsule PO (09:40)
[2021-01-03] MEDS: aspirin 81 mg Chew Tablet PO (09:45)
[2021-01-03] MEDS: PARoxetine 20 mg Tablet PO (09:45)
[2021-01-03 09:52] LABS: Uric Acid 7.3 mg/dL (3.4-7.0)
--- NOTE | 2021-01-03 11:00 | PC.NURSE ---
Pain Reassessment Patient states that his pain in his back is a chronic pain and there isn't much that makes it better, but that medication does dull it. Without medication the pain is sharp.
[2021-01-03 11:12] LABS: Glucose Point of Care 110 mg/dL (70-110)
[2021-01-03 11:14] LABS: Bilirubin Urine 1+ (Negative); Blood Urine 3+ (Negative); Glucose Urine UA Norm (Normal); Ketones Urine 1+ (Negative); Leukocyte Esterase Urine 2+ (Negative); Nitrate Urine Positive (Negative); Protein Urine Trace (Negative); Urine Appearance Cloudy (CLEAR); Urine Color Yellow (Yellow); Urobilinogen Urine 4 mg/dL (Negative); pH Urine 5 (5-7)
[2021-01-03 11:19] LABS: Add Urine Culture? Yes; Bacteria Urine 3+ /hpf; WBC Urine TOO NUMEROUS TO CNT /hpf (0-5)
[2021-01-03 11:31] LABS: Potassium, Radom Urine 39 mmol/L
[2021-01-03 11:36] LABS: Urine Random Sodium 13 mmol/L
[2021-01-03 12:22] LABS: Urine Random Chloride < 10 mmol/L
--- NOTE | 2021-01-03 13:03 | PM.PN ---
Subjective Subjective: Interval history: Patient was seen this morning, he is doing well, he tells me his breathing has improved, his edema has improved, his urine output has declined to about 300 cc in the last 24 hours, all his diuretics has been held, he did develop bradycardia overnight, but no lightheadedness, no dizziness Vitals/I&O/Wt Last Vital Signs Temp 97.6 F 01/03/21 04:00 Pulse 48 L 01/03/21 12:00 Resp 22 H 01/03/21 12:00 BP 115/56 01/03/21 12:00 Pulse Ox 94 01/03/21 12:00 01/02/21 01/03/21 01/03/21 22:59 06:59 14:59 Intake Total 813.75 / 1413.75 807.5 / 2221.25 591 / 591 Output Total 50 / 200 150 / 350 Balance 763.75 / 1213.75 657.5 / 1871.25 591 / 591 Physical Exam Const: COMMON NORMALS: no acute distress and patient oriented x3 HENMT: COMMON NORMALS: normocephalic HEAD & SCALP: normocephalic Resp: COMMON NORMALS: normal respiratory effort, No retractions, No use of accessory muscles and clear to auscultation bilaterally AUSCULTATION: clear to auscultation bilaterally Cardio: COMMON NORMALS: regular rhythm, S1 normal heart sound present and S2 normal heart sound present RATE: bradycardic RHYTHM: regular rhythm HEART SOUNDS: S1 normal heart sound present and S2 normal heart sound present GI: COMMON NORMALS: Normal to inspection, nondistended, normoactive bowel sounds present, Soft to palpation and non-tender PALPATION: Yes Soft to palpation OTHER: Obese abdomen, pannus present, with slight erythema Extremity: COMMON NORMALS: no pedal edema Neuro: COMMON NORMALS: patient oriented x3 Psych: COMMON NORMALS: mental status grossly normal Urinary Catheter Management^: Willingham: Cath Placed During This Visit: yes Reason for Continuing Indwelling Catheter: Accurate Measurement of Urinary Output in Critically Ill Patients Urinary Catheter Date of Insertion: 12/31/20 Urinary Catheter Time of Insertion: 12:41 Data : 01/03/21 04:37 01/03/21 04:37 A&P Assessment and plan (1) Acute on chronic respiratory failure: -Secondary to obesity hypoventilation syndrome, diastolic CHF -pH 7.37, PCO2 67 Plan: -We will moved to general medical floors today -As needed BiPAP during the day, schedule during the night -Neurochecks, aspiration precaution -Willingham catheter in place -Hold diuretics, hold nephrotoxic agents -For bradycardia, continue telemetry monitoring, sotalol has been decreased to 60 twice daily, cardiology on consult -For acute kidney injury, creatinine 1.3, likely prerenal, hold diuretics, hold nephrotoxic agents, gentle IV hydration at 75 cc, does have evidence of UTI on UA, start Rocephin, follow renal ultrasound, urine culture, nephrology on consult -Stop fluid restrictions -Monitor respiratory status, monitor urine output, monitor creatinine, monitor potassium -Atrial fibrillation, INR 2.82, pharmacy to dose Coumadin, continue sotalol -Hyperkalemia 5.0, resolved -[id number] type 2 diabetes mellitus, low-dose sliding scale -Diabetic diet -Full code -SCDs for DVT prophylaxis, on Coumadin, INR 3.27, pharmacy to dose Coumadin -[facility] has been notified about patient's AVAPS, AVAPS has been ordered, patient needs to be discharged with AVAPS for home Plan for today, continue BiPAP, moved to second floor, PT OT, IV hydration, monitor urine output, start Rocephin, Status: Acute (2) Acute exacerbation of CHF (congestive heart failure): Status: Acute (3) On home oxygen therapy: Status: Chronic (4) Atrial fibrillation: Status: Chronic Qualifiers: Atrial fibrillation type: longstanding persistent Qualified Code(s): I48.11 - Longstanding persistent atrial fibrillation (5) Chronic anticoagulation: Status: Chronic (6) Diabetes mellitus, type II: Status: Chronic Qualifiers: Diabetes mellitus remote computer terminal operator insulin use: with remote computer terminal operator use Diabetes mellitus complication status: without complication Qualified Code(s): E11.9 - Type 2 diabetes mellitus without complications; Z79.4 - watermelon inspector (current) use of insulin Attestations Medical Necessity Statement*: Patient requires hospitalization for hypercarbic respiratory failure, now with ARELI, bradycardia Coding Level of Care Code Acute Glue Spreader for [facility] Diagnoses Acute on chronic respiratory failure J96.20 Acute exacerbation of CHF (congestive heart failure) I50.9 On home oxygen therapy Z99.81 Atrial fibrillation I48.11 Atrial fibrillation type: longstanding persistent Chronic anticoagulation Z79.01 Diabetes mellitus, type II E11.9; Z79.4 Diabetes mellitus remote computer terminal operator insulin use: with remote computer terminal operator use Diabetes mellitus complication status: without complication
--- NOTE | 2021-01-03 14:33 | PC.NURSE ---
Addendum entered by Kathy Iqbal RN 01/03/21 17:06: NOTED SCABBED AREAS TO EDY CHEEKS - APPEARS TO BE HEALING - PT STATES HE GETS THESE AREAS OFTEN - ALSO NOTED LARGE AREA OF BRUISING TO LEFT AC - PT STATES THE BLOOD PRESSURE CUFF DID THIS TO ME - WILL MONITOR THESE AREAS Original Note: 2405 ICU TRANSFER - VIA W/C WITH NURSE GABY RESIDENT AT SIDE - PT SITTING ON SIDE OF BED WITH 02 AT 6L NC - RT IN ROOM TO ASSIST WITH BIPAP SET UP - AP RRR - TELE PLACED ON - LUNGS DIMINISHED THROUGHOUT - PIID TO RIGHT AC INTACT - ABD DISTENDED WITH BS HYPOACTIVE - NOTED PT TO HAVE GENERALIZED EDEMA - SKIN DRYING THROUGHOUT WITH SCATTERED BRUISES NOTED - MARQUEZ INTACT WITH YELLOW URINE AND PLACED ON ICE DUE TO 24 HOUR URINE - PT ALERT TO SELF, PLACE YET CONFUSED TO DATE - REORIENTATES QUICKLY - WISHES TO REMAIN SITTING ON SIDE OF BED - WILL MONITOR
--- NOTE | 2021-01-03 14:46 | PC.SOCIAL ---
IMM UPDATED Gave patient IMM update. Provided copy of pg 2 of IMM. Verbalized understanding. 01/03/21 @ 1111. Initialed, dated, timed and placed in chart.
[2021-01-03] MEDS: cefTRIAXone 1,000 MG in sodium chloride 0.9% (plus) 50 ML 100 MG IV (15:05)
--- NOTE | 2021-01-03 15:46 | PC.NURSE ---
NEUROLOGICAL ASSESSMENT PT IS CONFUSED TO DATE, REORIENTATES QUICKLY - ABLE TO STATE NAME, PLACE AND SITUATION
[2021-01-03 16:55] LABS: Glucose Point of Care 142 mg/dL (70-110)
--- NOTE | 2021-01-03 16:58 | USCV_ITS ---
Nhan Sol Age: 65 Gender: M : 1955 Exam Date: 01/03/2021 06:21 Ordering Phys: Harris Pierson MD Technologist: Arlene Grimaldo Exam Location: [facility] – [place] Indication: SINUS BRADYCARDIA BP: 135 / 62 HR: 58 Rhythm: Sinus Technical Quality: Technically difficult study MEASUREMENTS (Male / Female) Normal Values 2D ECHO LV Diastolic Diameter PLAX 3.9 cm 4.2 - 5.9 / 3.9 - 5.3 cm LV Systolic Diameter PLAX 2.5 cm IVS Diastolic Thickness 2.4 cm 0.6 - 1.0 / 0.6 - 0.9 cm IVS Systolic Thickness 2.7 cm LVPW Diastolic Thickness 1.7 cm 0.6 - 1.0 / 0.6 - 0.9 cm LVPW Systolic Thickness 2.2 cm RV Chamber Size 2.8 cm LVOT Diameter 2.0 cm LV Ejection Fraction 2D Teich 70.3 % LV Ejection Fraction MOD 2C 68.7 % LV Ejection Fraction 2C AL 68.6 % LA Diameter 4.2 cm LA Width 4.1 cm LA Height 5.0 cm RA Width 4.0 cm RA Height 5.3 cm Aorta at Sinotubular Diameter 2.6 cm M-MODE Aortic Annulus Diameter 4.1 cm LA Ao Ratio MM 1.1 MV E Point Septal Separation 0.7 cm DOPPLER AV Peak Velocity 199.0 cm/s LVOT Peak Velocity 114.0 cm/s AV Area Cont Eq vti 1.7 cm squared AV Area Cont Eq pk 1.8 cm squared MV Area PHT 4.0 cm squared Mitral E to A Ratio 2.7 MV E' Velocity 69.0 cm/s Mitral E to MV E' Ratio 24.1 Mitral E to LV E' Lateral Ratio 25.0 Mitral E to LV E' Septal Ratio 23.3 TR Peak Velocity 201.0 cm/s TR Peak Gradient 16.2 mmHg TV Peak E Velocity 63.0 cm/s Right Atrial Pressure 8.0 mmHg Pulmonary Artery Systolic Pressu 24.2 mmHg PV Peak Velocity 90.0 cm/s RV Acceleration Time 0.1 s RV Ejection Time 0.4 s RV AcT/ET 0.3 FINDINGS Left Ventricle Normal left ventricular cavity size. Normal left ventricular systolic function. No regional wall motion abnormalities. Left ventricular ejection fraction is estimated at 60 %. Grade II/IV diastolic dysfunction, moderately elevated filling pressures. Right Ventricle The right ventricle is normal in size and function. Right Atrium The right atrium is normal in size. Left Atrium The left atrium is normal in size. Mitral Valve Structurally normal mitral valve without significant stenosis or prolapse. There is no mitral regurgitation. Aortic Valve Structurally normal aortic valve without significant sclerosis or stenosis. There is no aortic regurgitation. Tricuspid Valve Structurally normal tricuspid valve without significant stenosis or regurgitation. Pulmonary artery systolic pressure is normal. Pulmonic Valve Structurally normal pulmonic valve without significant stenosis. There is no pulmonic regurgitation. Pericardium Normal pericardium without effusion. Aorta Normal ascending aorta dimension. CONCLUSIONS 1-Normal left ventricular cavity size. Normal left ventricular systolic function. No regional wall motion abnormalities. Left ventricular ejection fraction is estimated at 60 %. Grade II/IV diastolic dysfunction, moderately elevated filling pressures. 2-No significant valve abnormalities. 3-There is no pericardial effusion. 4-Pulmonary artery systolic pressure is within normal limits. 5-Right atrial pressure is around 5 mm of mercury. 6-No significant change since the prior echocardiogram study of 07/15/2020.. Logan Pizano MD (Electronically Signed) Final Date: 03 January 2021 19:32 S
--- NOTE | 2021-01-03 16:59 | PM.PN ---
Subjective Subjective: Interval history: Bradycardia is improved after dropping down sotalol to 60 twice daily. Vitals/I&O/Wt Last Vital Signs Temp 97.7 F 01/03/21 16:12 Pulse 54 L 01/03/21 16:12 Resp 17 01/03/21 16:12 BP 95/53 01/03/21 16:12 Pulse Ox 92 01/03/21 16:12 01/03/21 01/03/21 01/03/21 06:59 14:59 22:59 Intake Total 807.5 / 2221.25 591 / 591 893.75 / 1484.75 Output Total 150 / 350 Balance 657.5 / 1871.25 591 / 591 893.75 / 1484.75 Physical Exam Narrative: EXAM NARRATIVE: GENERAL: Patient is alert, awake and oriented x3. Sitting in the chair is being moved to second floor NECK: No jugular vein distension. HEENT: No cyanosis. No icterus. No pallor. HEART: Regular S1 and S2. No murmur, rub or gallop. LUNGS: Clear to auscultate bilaterally. ABDOMEN: Soft, nontender and nondistended. Positive bowel sounds. No guarding, rebound or tenderness. CENTRAL NERVOUS SYSTEM: Grossly nonfocal. EXTREMITIES: Lower extremities without edema bilaterally. Urinary Catheter Management^: Willingham: Cath Placed During This Visit: yes Reason for Continuing Indwelling Catheter: Accurate Measurement of Urinary Output in Critically Ill Patients Urinary Catheter Date of Insertion: 12/31/20 Urinary Catheter Time of Insertion: 12:41 Data : 01/03/21 04:37 01/03/21 04:37 A&P Assessment and plan (1) Atrial fibrillation: Patient is in sinus bradycardia may be due to multifactorial including high vagal tone obesity obstructive sleep apnea being on sarah cheri. I will reduce sotalol to 60 mg twice a day. We will continue to monitor. On today's visit reducing sotalol to 60 mg twice a day heart rate has come up at this point we will continue the same medicine. Status: Chronic Qualifiers: Atrial fibrillation type: longstanding persistent Qualified Code(s): I48.11 - Longstanding persistent atrial fibrillation (2) Acute exacerbation of CHF (congestive heart failure): Stable. Continue current regimen Status: Acute Qualifiers: Heart failure type: diastolic Qualified Code(s): I50.33 - Acute on chronic diastolic (congestive) heart failure (3) Acute on chronic respiratory failure: As per medicine appear to be stable. Status: Acute Qualifiers: Respiratory failure complication: hypoxia and hypercapnia Qualified Code(s): J96.21 - Acute and chronic respiratory failure with hypoxia; J96.22 - Acute and chronic respiratory failure with hypercapnia (4) Diabetes mellitus, type II: On insulin Status: Chronic Qualifiers: Diabetes mellitus terminal make up operator insulin use: with fpc use Diabetes mellitus complication status: without complication Qualified Code(s): E11.9 - Type 2 diabetes mellitus without complications; Z79.4 - [facility] (current) use of insulin (5) Morbid obesity with BMI of 50.0-59.9, adult: Advised to reduce weight Status: Acute Attestations Medical Necessity Statement*: Patient require continuation hospitalization for above defined care. Patient is going to move out to second floor 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 Relief Operator for [facility] Fwpurnima Patient Type Established History Detailed Exam Detailed Medical Decision Making Moderate Complexity Diagnoses Atrial fibrillation I48.11 Atrial fibrillation type: longstanding persistent Acute exacerbation of CHF (congestive heart failure) I50.33 Heart failure type: diastolic Acute on chronic respiratory failure J96.21; J96.22 Respiratory failure complication: hypoxia and hypercapnia Diabetes mellitus, type II E11.9; Z79.4 Diabetes mellitus fpc insulin use: with terminal make up operator use Diabetes mellitus complication status: without complication Morbid obesity with BMI of 50.0-59.9, adult E66.01; Z68.43
--- NOTE | 2021-01-03 17:19 | PC.NURSE ---
24 hour urine 300ML OF URINE TAKEN FROM MARQUEZ BAG TO ADAL JUG FROM LAB FOR 24 HOUR URINE - MARQUEZ BAG AND JUG BOTH REMAIN ON ICE SINCE TRANSFER TO THIS NURSE [facility]
[2021-01-03 21:15] LABS: Glucose Point of Care 115 mg/dL (70-110)
[2021-01-04] VITALS (13 sets, daily range): BP systolic 104–135; BP diastolic 66–77; PULSE 50–76; RESP 17–29; TEMP 36.3–36.7; O2SAT 92–99
[2021-01-04] MEDS: pantoprazole 40 mg SDV IVP ×2 (05:37→17:44)
[2021-01-04] MEDS: sodium chloride 0.9% 1,000 ML 75 ML IV (05:38)
[2021-01-04 06:29] LABS: Glucose Point of Care 91 mg/dL (70-110)
--- NOTE | 2021-01-04 07:04 | P.PN_ITS ---
Subjective Subjective: Interval history: remains bradycardic. says he slept well. no sob. has a rosales. good appetite. Medications: Reviewed: Yes Medication Review Details: Current Medications Hydrocodone Bitart/Acetaminophen (Hydrocodone-Acetaminophen 10-325 Mg Tablet) 1 tab PO Q4H PRN PRN Reason: MODERATE PAIN Last Admin: 01/03/21 21:21 Dose: 1 tab Documented by: Aspirin (Aspirin 81 Mg Chew Tablet) 81 mg PO DAILY [facility] Last Admin: 01/03/21 09:45 Dose: 81 mg Documented by: Atropine Sulfate (Atropine 0.1 Mg/Ml Syr 10 Ml) 0.5 mg IVP Q5MIN PRN PRN Reason: FOR HR<60, and pt is symptomatic Dextrose (Dextrose 50% Syringe 50 Ml) 25 ml IVP ONCE PRN; Protocol PRN Reason: hypoglycemia protocol Dextrose (Dextrose 50% Syringe 50 Ml) 50 ml IVP PRN PRN; Protocol PRN Reason: hypoglycemia protocol Glucagon (Glucagon 1 Mg/Ml Inj 1 Ml) 1 mg IM ONCE PRN; Protocol PRN Reason: Adult Acute Hypoglycemia Prot. Dextrose (D5w) 500 mls @ 100 mls/hr IV ONCE PRN; Protocol PRN Reason: Adult Acute Hypoglycemia Prot Sodium Chloride (Sodium Chloride 0.9%) 1,000 mls @ 75 mls/hr IV .[id number] [facility] Last Admin: 01/04/21 05:38 Dose: 75 mls/hr Documented by: Ceftriaxone Sodium 1,000 mg/ (Sodium Chloride) 50 mls @ 100 mls/hr IV Q24H [facility]; Protocol Last Infusion: 01/03/21 15:35 Dose: Infused Documented by: Insulin Aspart (Insulin Aspart 100 Unit/1 Ml) 0 unit SUBCUT TIDWM [facility]; Protocol Last Admin: 01/03/21 17:04 Dose: 2 unit Documented by: Naloxone HCl (Naloxone 0.4 Mg/Ml Sdv) 0.1 mg IVP Q2M PRN PRN Reason: OPIATERV Ondansetron HCl (Ondansetron 2 Mg/Ml Sdv 2 Ml) 4 mg IVP Q8H PRN PRN Reason: vomiting, or N/V if npo Pantoprazole Sodium (Pantoprazole 40 Mg Sdv) 40 mg IVP Q12H [facility] Last Admin: 01/04/21 05:37 Dose: 40 mg Documented by: Paroxetine HCl (Paroxetine 20 Mg Tablet) 20 mg PO DAILY [facility] Last Admin: 01/03/21 09:45 Dose: 20 mg Documented by: Potassium Chloride (Potassium Chloride Er 20 Meq Tablet) 20 meq PO DAILY [facility] Last Admin: 01/03/21 09:38 Dose: 20 meq Documented by: Sotalol HCl (Sotalol 80 Mg Tablet) 60 mg PO BID@0900,2100 [facility] Last Admin: 01/03/21 21:20 Dose: 60 mg Documented by: Tamsulosin HCl (Tamsulosin 0.4 Mg Capsule) 0.4 mg PO DAILY [facility] Last Admin: 01/03/21 09:40 Dose: 0.4 mg Documented by: Warfarin Sodium (Warfarin 7.5 Mg Tablet) 7.5 mg PO SuMoWeFrSa@1400 [facility] Last Admin: 01/03/21 15:04 Dose: 7.5 mg Documented by: Warfarin Sodium (Warfarin 10 Mg Tablet) 10 mg PO TuTh@1400 [facility] Vitals/I&O/Wt Last Vital Signs Temp 98.1 F 01/04/21 04:00 Pulse 51 L 01/04/21 06:00 Resp 17 01/04/21 04:00 BP 104/66 01/04/21 04:00 Pulse Ox 99 01/04/21 04:00 01/03/21 01/04/21 01/04/21 22:59 06:59 14:59 Intake Total 1013.75 / 1604.75 1000 / 2604.75 Output Total 300 / 300 600 / 900 Balance 713.75 / 1304.75 400 / 1704.75 Physical Exam Narrative: EXAM NARRATIVE: obese in bed, good oxygenation vs noted- HR 50, BP low side heent- nc/at, eomi, anicteric neck obese lungs- basal crackles heart irreg, no rub abd soft, nt, nd, +BS ext- trace b/l leg edema neuro- a,a, o x 3 mood good Urinary Catheter Management^: Rosales: Cath Placed During This Visit: yes Reason for Continuing Indwelling Catheter: Accurate Measurement of Urinary Output in Critically Ill Patients Urinary Catheter Date of Insertion: 12/31/20 Urinary Catheter Time of Insertion: 12:41 Data : 01/03/21 04:37 01/03/21 04:37 A&P Additional A&P Information 65 yr old man morbid obesity 1. obesity induced resp hypercapneic acidosis- pco2 improved from 98 to 67 2. ARELI - likely from hypotension, large diuresis and being on karen-i which decreased afferent glomerular perfusion/ pressure -however u/a w/ hematuria- will repeat and send serologies for possible renal - pulm syndrome - renal us - not able to visualize the right kidney -left kidney 11.6 cm- no hydronephrosis -await repeat labs 3. bradycardia- per cardiology. if cr is rising dec dose of a fib meds 4. anemia - await repeat labs 5. met alkalosis- compensation for hypercapneic resp acidosis and from diuresis seen and examined w/ RN- telehealth visit discussed w/ pt and RN time spent 25 minutes Attestations Medical Necessity Statement*: areli, hypercapneic resp acidosis Time Spent in Patient Care: 16 - 35 minutes Coding Level of Care Code Acute Hr Shared Services Consultant for [facility]
[2021-01-04] MEDS: potassium chloride ER 20 mEq Tablet PO (08:05)
[2021-01-04] MEDS: aspirin 81 mg Chew Tablet PO (08:05)
[2021-01-04] MEDS: tamsulosin 0.4 mg Capsule PO (08:06)
[2021-01-04] MEDS: PARoxetine 20 mg Tablet PO (08:06)
[2021-01-04] MEDS: HYDROcodone-acetaminophen 10-325 mg Tablet 1 TAB PO ×3 (08:17→21:04)
[2021-01-04] MEDS: sotalol 80 mg Tablet 60 MG PO ×2 (08:17→21:04)
[2021-01-04 11:00] LABS: Glucose Point of Care 103 mg/dL (70-110)
[2021-01-04 11:05] LABS: Basophils % 0.5 %; Eosinophils # 0.3 10^3/uL (0.0-0.8); Eosinophils % 7.7 %; Hematocrit 31.3 % (42.0-52.0); Hemoglobin 9.2 g/dL (11.7-16.6); Lymphocytes % 24.8 %; Mean Corpuscular HGB Conc 29.4 g/dL (30.0-36.0); Mean Corpuscular Hemoglobin 29.2 pg (28.0-34.0); Mean Corpuscular Volume 99.4 fL (80-94); Mean Platelet Volume 10.3 fL (7.4-10.4); Monocytes # 0.4 10^3/uL (0.2-0.9); Monocytes % 9.4 %; Neutrophils # 2.39 10^3/uL (1.8-7.7); Neutrophils % 57.6 %; Nucleated Red Blood Cells % 0 %; Platelet Count 179 10^3/cmm (130-400); Red Blood Count 3.15 10^6/uL (4.1-5.3); Red Cell Distribution Width 16.4 % (12.1-15.1); White Blood Count 4.2 10^3/uL (4.0-10.0)
[2021-01-04 11:25] LABS: Alanine Aminotransferase 8 U/L (0-41); Alkaline Phosphatase 58 IU/L (40-130); Anion Gap 9.2 (5-19); Aspartate Amino Transferase 20 U/L (0-40); Blood Urea Nitrogen 26 mg/dL (8-23); Calcium 8.4 mg/dL (8.5-10.5); Carbon Dioxide 37 mmol/L (22-29); Chloride 94 mmol/L (98-107); Ferritin 72 ng/mL (30-400); Globulin 2.8 g/dL (1.3-4.6); Glomerular Filtration Rate 97.6 mL/min (90-130); Glucose 102 mg/dL (65-115); Iron 40 ug/dL (59-158); Magnesium 1.8 mg/dL (1.7-2.3); Osmolality Calculated 287 mOsm/kg (285-295); Percent Saturation 12.7 % (20-50); Phosphorus 3.7 mg/dL (2.5-4.5); Potassium 4.2 mmol/L (3.5-5.1); Sodium 136 mmol/L (136-145); Total Bilirubin 0.5 mg/dL (0.15-1.2); Total Iron Binding Capacity 313 mcg/dl; Total Protein 5.8 g/dL (6.6-8.7); Unsaturated Iron Binding 273 ug/dL (112-347)
[2021-01-04 11:40] LABS: 25 Hydroxy Vitamin D 13 ng/mL (30-100)
[2021-01-04 12:22] LABS: INR 2.85 (0.8-1.2)
--- NOTE | 2021-01-04 14:57 | PM.PN ---
Subjective Subjective: Interval history: Patient was seen this morning, he is doing well, no shortness of breath, no chest pain, no lightheadedness, no dizziness, no swelling Vitals/I&O/Wt Last Vital Signs Temp 97.4 F L 01/04/21 12:00 Pulse 57 L 01/04/21 12:00 Resp 17 01/04/21 12:00 BP 107/67 01/04/21 12:00 Pulse Ox 94 01/04/21 12:00 01/03/21 01/04/21 01/04/21 22:59 06:59 14:59 Intake Total 1013.75 / 1604.75 1000 / 2604.75 360 / 360 Output Total 300 / 300 600 / 900 Balance 713.75 / 1304.75 400 / 1704.75 360 / 360 Physical Exam Const: COMMON NORMALS: no acute distress and patient oriented x3 Resp: COMMON NORMALS: normal respiratory effort, No retractions, No use of accessory muscles and clear to auscultation bilaterally AUSCULTATION: clear to auscultation bilaterally Cardio: COMMON NORMALS: regular rate, regular rhythm, S1 normal heart sound present and S2 normal heart sound present RATE: regular rate RHYTHM: regular rhythm HEART SOUNDS: S1 normal heart sound present and S2 normal heart sound present GI: COMMON NORMALS: Normal to inspection, nondistended, normoactive bowel sounds present, Soft to palpation and non-tender PALPATION: Yes Soft to palpation Extremity: COMMON NORMALS: no pedal edema Neuro: COMMON NORMALS: patient oriented x3 Psych: COMMON NORMALS: mental status grossly normal Urinary Catheter Management^: Willingham: Cath Placed During This Visit: yes Reason for Continuing Indwelling Catheter: Accurate Measurement of Urinary Output in Critically Ill Patients Urinary Catheter Date of Insertion: 12/31/20 Urinary Catheter Time of Insertion: 12:41 Data : 01/04/21 10:30 01/04/21 10:30 Micro: Microbiology 01/03/21 10:15 Urine Culture - Preliminary Urine,Clean Catch Gram Negative Rods A&P Assessment and plan (1) Acute on chronic respiratory failure: -Secondary to obesity hypoventilation syndrome, diastolic CHF Plan: -Currently on gentle medical floors -As needed BiPAP during the day, schedule during the night -Neurochecks, aspiration precaution -DC Willingham catheter -Hold diuretics, hold nephrotoxic agents -For bradycardia, continue telemetry monitoring, sotalol has been decreased to 60 twice daily, cardiology on consult -For acute kidney injury, resolved, stop fluids, creatinine 0.8, likely prerenal, hold diuretics, hold nephrotoxic agents, gentle IV hydration at 75 cc, -Does have a UTI, follow urine cultures, continue Rocephin -Stop fluid restrictions -Monitor respiratory status, monitor urine output, monitor creatinine, monitor potassium -Atrial fibrillation, INR 2.85, pharmacy to dose Coumadin,continue sotalol -Sinus bradycardia, sotalol dose has been decreased to 60 twice daily, cardiology on consult -Hyperkalemia 5.0, resolved -Ahj-nyimzoh-vieclysdy type 2 diabetes mellitus, low-dose sliding scale -Diabetic diet -Full code -SCDs for DVT prophylaxis, on Coumadin, INR 3.27, pharmacy to dose Coumadin -[facility] has been notified about patient's AVAPS, AVAPS has been ordered, patient needs to be discharged with AVAPS for home, there is been issues with AVAPS, case management is working on it Plan for today, stop fluids, continue BiPAP, continue PT OT, continue Rocephin, follow urine cultures, he needs to have AVAPS before discharge, we need to resume some sort of diuretics before discharge, as he is doing well today, will resume Lasix tomorrow morning Status: Acute Qualifiers: Respiratory failure complication: hypoxia and hypercapnia Qualified Code(s): J96.21 - Acute and chronic respiratory failure with hypoxia; J96.22 - Acute and chronic respiratory failure with hypercapnia (2) Acute exacerbation of CHF (congestive heart failure): Status: Acute Qualifiers: Heart failure type: diastolic Qualified Code(s): I50.33 - Acute on chronic diastolic (congestive) heart failure (3) On home oxygen therapy: Status: Chronic (4) Atrial fibrillation: Status: Chronic Qualifiers: Atrial fibrillation type: longstanding persistent Qualified Code(s): I48.11 - Longstanding persistent atrial fibrillation (5) Chronic anticoagulation: Status: Chronic (6) Diabetes mellitus, type II: Status: Chronic Qualifiers: Diabetes mellitus halfway insulin use: with termite control servicer use Diabetes mellitus complication status: without complication Qualified Code(s): E11.9 - Type 2 diabetes mellitus without complications; Z79.4 - care home (current) use of insulin Attestations Medical Necessity Statement*: Patient requires hospitalization for acute on chronic respiratory failure secondary obesity hypoventilation, diastolic CHF Coding Level of Care Code Acute Environmental Health And Safety Intern for g Fwd Diagnoses Acute on chronic respiratory failure J96.21; J96.22 Respiratory failure complication: hypoxia and hypercapnia Acute exacerbation of CHF (congestive heart failure) I50.33 Heart failure type: diastolic On home oxygen therapy Z99.81 Atrial fibrillation I48.11 Atrial fibrillation type: longstanding persistent Chronic anticoagulation Z79.01 Diabetes mellitus, type II E11.9; Z79.4 Diabetes mellitus termite control servicer insulin use: with halfway use Diabetes mellitus complication status: without complication
[2021-01-04] MEDS: cefTRIAXone 1,000 MG in sodium chloride 0.9% (plus) 50 ML 50 MG IV (15:06)
[2021-01-04] MEDS: warfarin 10 mg Tablet PO (15:07)
[2021-01-04 16:55] LABS: Glucose Point of Care 113 mg/dL (70-110)
[2021-01-04] MEDS: acetaminophen 325 mg Tablet 650 MG PO (17:44)
--- NOTE | 2021-01-04 21:11 | PM.PN ---
Subjective Subjective: Interval history: Denies any complaint heart rate has normalized. Remains in sinus rhythm Medications: Reviewed: Yes Medication Review Details: Current Medications Hydrocodone Bitart/Acetaminophen (Hydrocodone-Acetaminophen 10-325 Mg Tablet) 1 tab PO Q4H PRN PRN Reason: MODERATE PAIN Last Admin: 01/03/21 21:21 Dose: 1 tab Documented by: Aspirin (Aspirin 81 Mg Chew Tablet) 81 mg PO DAILY [facility] Last Admin: 01/03/21 09:45 Dose: 81 mg Documented by: Atropine Sulfate (Atropine 0.1 Mg/Ml Syr 10 Ml) 0.5 mg IVP Q5MIN PRN PRN Reason: FOR HR<60, and pt is symptomatic Dextrose (Dextrose 50% Syringe 50 Ml) 25 ml IVP ONCE PRN; Protocol PRN Reason: hypoglycemia protocol Dextrose (Dextrose 50% Syringe 50 Ml) 50 ml IVP PRN PRN; Protocol PRN Reason: hypoglycemia protocol Glucagon (Glucagon 1 Mg/Ml Inj 1 Ml) 1 mg IM ONCE PRN; Protocol PRN Reason: Adult Acute Hypoglycemia Prot. Dextrose (D5w) 500 mls @ 100 mls/hr IV ONCE PRN; Protocol PRN Reason: Adult Acute Hypoglycemia Prot Sodium Chloride (Sodium Chloride 0.9%) 1,000 mls @ 75 mls/hr IV .[id number] [facility] Last Admin: 01/04/21 05:38 Dose: 75 mls/hr Documented by: Ceftriaxone Sodium 1,000 mg/ (Sodium Chloride) 50 mls @ 100 mls/hr IV Q24H [facility]; Protocol Last Infusion: 01/03/21 15:35 Dose: Infused Documented by: Insulin Aspart (Insulin Aspart 100 Unit/1 Ml) 0 unit SUBCUT TIDWM KAI; Protocol Last Admin: 01/03/21 17:04 Dose: 2 unit Documented by: Naloxone HCl (Naloxone 0.4 Mg/Ml Sdv) 0.1 mg IVP Q2M PRN PRN Reason: OPIATERV Ondansetron HCl (Ondansetron 2 Mg/Ml Sdv 2 Ml) 4 mg IVP Q8H PRN PRN Reason: vomiting, or N/V if npo Pantoprazole Sodium (Pantoprazole 40 Mg Sdv) 40 mg IVP Q12H [facility] Last Admin: 01/04/21 05:37 Dose: 40 mg Documented by: Paroxetine HCl (Paroxetine 20 Mg Tablet) 20 mg PO DAILY [facility] Last Admin: 01/03/21 09:45 Dose: 20 mg Documented by: Potassium Chloride (Potassium Chloride Er 20 Meq Tablet) 20 meq PO DAILY [facility] Last Admin: 01/03/21 09:38 Dose: 20 meq Documented by: Sotalol HCl (Sotalol 80 Mg Tablet) 60 mg PO BID@0900,2100 [facility] Last Admin: 01/03/21 21:20 Dose: 60 mg Documented by: Tamsulosin HCl (Tamsulosin 0.4 Mg Capsule) 0.4 mg PO DAILY [facility] Last Admin: 01/03/21 09:40 Dose: 0.4 mg Documented by: Warfarin Sodium (Warfarin 7.5 Mg Tablet) 7.5 mg PO SuMoWeFrSa@1400 [facility] Last Admin: 01/03/21 15:04 Dose: 7.5 mg Documented by: Warfarin Sodium (Warfarin 10 Mg Tablet) 10 mg PO TuTh@1400 [facility] Vitals/I&O/Wt Last Vital Signs Temp 98.0 F 01/04/21 19:45 Pulse 63 01/04/21 19:45 Resp 18 01/04/21 19:45 BP 128/76 01/04/21 19:45 Pulse Ox 92 01/04/21 19:45 01/04/21 01/04/21 01/04/21 06:59 14:59 22:59 Intake Total 1000 / 2604.75 360 / 360 1069.583 / 1429.583 Output Total 600 / 900 350 / 350 Balance 400 / 1704.75 360 / 360 719.583 / 1079.583 Physical Exam Narrative: EXAM NARRATIVE: GENERAL: Patient is alert, awake and oriented x3. NECK: No jugular vein distension. HEENT: No cyanosis. No icterus. No pallor. HEART: Regular S1 and S2. No murmur, rub or gallop. LUNGS: Clear to auscultate bilaterally. ABDOMEN: Soft, nontender and nondistended. Positive bowel sounds. No guarding, rebound or tenderness. CENTRAL NERVOUS SYSTEM: Grossly nonfocal. EXTREMITIES: Lower extremities without edema bilaterally. Urinary Catheter Management^: Willingham: Cath Placed During This Visit: yes, but has since been removed by the nurse Reason for Continuing Indwelling Catheter: Decision to DC Catheter Urinary Catheter Date of Insertion: 12/31/20 Urinary Catheter Time of Insertion: 12:41 Date Urinary Catheter Removed: 01/04/21 Time Urinary Catheter Discontinued: 18:40 Data : 01/05/21 08:57 01/05/21 08:57 Micro: Microbiology 01/03/21 10:15 Urine Culture - Preliminary Urine,Clean Catch Gram Negative Rods A&P Assessment and plan (1) Atrial fibrillation: Patient is in sinus bradycardia may be due to multifactorial including high vagal tone obesity obstructive sleep apnea being on sarah cheri. I will reduce sotalol to 60 mg twice a day. We will continue to monitor. On today's visit reducing sotalol to 60 mg twice a day heart rate has come up at this point we will continue the same medicine. Appear to be stable continue current regimen if noticed heart rate start going up will increase sotalol to 80 mg twice a day Status: Chronic Qualifiers: Atrial fibrillation type: longstanding persistent Qualified Code(s): I48.11 - Longstanding persistent atrial fibrillation (2) Acute exacerbation of CHF (congestive heart failure): Stable. Continue current regimen Status: Acute Qualifiers: Heart failure type: diastolic Qualified Code(s): I50.33 - Acute on chronic diastolic (congestive) heart failure (3) Acute on chronic respiratory failure: As per medicine appear to be stable. Status: Acute Qualifiers: Respiratory failure complication: hypoxia and hypercapnia Qualified Code(s): J96.21 - Acute and chronic respiratory failure with hypoxia; J96.22 - Acute and chronic respiratory failure with hypercapnia (4) Diabetes mellitus, type II: On insulin Status: Chronic Qualifiers: Diabetes mellitus complication status: without complication Diabetes mellitus penitentiary insulin use: with laborer marine terminal use Qualified Code(s): E11.9 - Type 2 diabetes mellitus without complications; Z79.4 - intermediate (current) use of insulin (5) Morbid obesity with BMI of 50.0-59.9, adult: Advised to reduce weight Status: Acute Attestations Medical Necessity Statement*: Patient require continuation hospitalization for above defined care. 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 Patient Type Established History Detailed Exam Detailed Medical Decision Making Moderate Complexity Diagnoses Atrial fibrillation I48.11 Atrial fibrillation type: longstanding persistent Acute exacerbation of CHF (congestive heart failure) I50.33 Heart failure type: diastolic Acute on chronic respiratory failure J96.21; J96.22 Respiratory failure complication: hypoxia and hypercapnia Diabetes mellitus, type II E11.9; Z79.4 Diabetes mellitus complication status: without complication Diabetes mellitus laborer marine terminal insulin use: with laborer marine terminal use Morbid obesity with BMI of 50.0-59.9, adult E66.01; Z68.43
[2021-01-04 21:26] LABS: Glucose Point of Care 144 mg/dL (70-110)
[2021-01-05] VITALS (12 sets, daily range): BP systolic 119–143; BP diastolic 69–83; PULSE 60–83; RESP 17–24; TEMP 36.7–36.8; O2SAT 91–99
[2021-01-05] MEDS: pantoprazole 40 mg SDV IVP (03:27)
[2021-01-05 06:38] LABS: Glucose Point of Care 101 mg/dL (70-110)
--- NOTE | 2021-01-05 07:18 | P.PN_ITS ---
Subjective Subjective: Interval history: good uop, dec edema. awake, using CPAP at night Medications: Reviewed: Yes Medication Review Details: Current Medications Acetaminophen (Acetaminophen 325 Mg Tablet) 650 mg PO Q4H PRN PRN Reason: MILD PAIN OR INCREASE TEMP Last Admin: 01/04/21 17:44 Dose: 650 mg Documented by: Hydrocodone Bitart/Acetaminophen (Hydrocodone-Acetaminophen 10-325 Mg Tablet) 1 tab PO Q8H PRN PRN Reason: MODERATE PAIN Last Admin: 01/04/21 21:04 Dose: 1 tab Documented by: Aspirin (Aspirin 81 Mg Chew Tablet) 81 mg PO DAILY [facility] Last Admin: 01/04/21 08:05 Dose: 81 mg Documented by: Atropine Sulfate (Atropine 0.1 Mg/Ml Syr 10 Ml) 0.5 mg IVP Q5MIN PRN PRN Reason: FOR HR<60, and pt is symptomatic Dextrose (Dextrose 50% Syringe 50 Ml) 25 ml IVP ONCE PRN; Protocol PRN Reason: hypoglycemia protocol Dextrose (Dextrose 50% Syringe 50 Ml) 50 ml IVP PRN PRN; Protocol PRN Reason: hypoglycemia protocol Glucagon (Glucagon 1 Mg/Ml Inj 1 Ml) 1 mg IM ONCE PRN; Protocol PRN Reason: Adult Acute Hypoglycemia Prot. Dextrose (D5w) 500 mls @ 100 mls/hr IV ONCE PRN; Protocol PRN Reason: Adult Acute Hypoglycemia Prot Ceftriaxone Sodium 1,000 mg/ (Sodium Chloride) 50 mls @ 100 mls/hr IV Q24H [facility]; Protocol Last Infusion: 01/04/21 15:49 Dose: 0 mls/hr Documented by: Insulin Aspart (Insulin Aspart 100 Unit/1 Ml) 0 unit SUBCUT TIDWM [facility]; Protocol Last Admin: 01/04/21 17:24 Dose: Not Given Documented by: Naloxone HCl (Naloxone 0.4 Mg/Ml Sdv) 0.1 mg IVP Q2M PRN PRN Reason: OPIATERV Ondansetron HCl (Ondansetron 2 Mg/Ml Sdv 2 Ml) 4 mg IVP Q8H PRN PRN Reason: vomiting, or N/V if npo Pantoprazole Sodium (Pantoprazole 40 Mg Sdv) 40 mg IVP Q12H [facility] Last Admin: 01/05/21 03:27 Dose: 40 mg Documented by: Paroxetine HCl (Paroxetine 20 Mg Tablet) 20 mg PO DAILY [facility] Last Admin: 01/04/21 08:06 Dose: 20 mg Documented by: Potassium Chloride (Potassium Chloride Er 20 Meq Tablet) 20 meq PO DAILY [facility] Last Admin: 01/04/21 08:05 Dose: 20 meq Documented by: Sotalol HCl (Sotalol 80 Mg Tablet) 60 mg PO BID@0900,2100 [facility] Last Admin: 01/04/21 21:04 Dose: 60 mg Documented by: Tamsulosin HCl (Tamsulosin 0.4 Mg Capsule) 0.4 mg PO DAILY [facility] Last Admin: 01/04/21 08:06 Dose: 0.4 mg Documented by: Warfarin Sodium (Warfarin 7.5 Mg Tablet) 7.5 mg PO SuMoWeFrSa@1400 [facility] Last Admin: 01/03/21 15:04 Dose: 7.5 mg Documented by: Warfarin Sodium (Warfarin 10 Mg Tablet) 10 mg PO TuTh@1400 [facility] Last Admin: 01/04/21 15:07 Dose: 10 mg Documented by: Vitals/I&O/Wt Last Vital Signs Temp 98.0 F 01/05/21 03:10 Pulse 70 01/05/21 06:00 Resp 20 H 01/05/21 03:10 BP 119/69 01/05/21 03:10 Pulse Ox 99 01/05/21 03:10 01/04/21 01/05/21 01/05/21 22:59 06:59 14:59 Intake Total 1069.583 / 1429.583 480 / 1909.583 Output Total 350 / 350 125 / 475 Balance 719.583 / 1079.583 355 / 1434.583 Physical Exam Narrative: EXAM NARRATIVE: obese in bed, good oxygenation w/ cpap- comfortable vs noted and stable heent- nc/at, eomi, anicteric neck obese lungs- basal crackles and diminished heart irreg, no rub abd soft, nt, nd, +BS ext- trace b/l leg edema neuro- a,a, o x 3 mood good Urinary Catheter Management^: Willingham: Cath Placed During This Visit: yes, but has since been removed by the nurse Reason for Continuing Indwelling Catheter: Decision to DC Catheter Urinary Catheter Date of Insertion: 12/31/20 Urinary Catheter Time of Insertion: 12:41 Date Urinary Catheter Removed: 01/04/21 Time Urinary Catheter Discontinued: 18:40 Data : 07/06/21 10:30 01/04/21 10:30 Micro: Microbiology 01/03/21 10:15 Urine Culture - Preliminary Urine,Clean Catch Gram Negative Rods A&P Additional A&P Information 65 yr old man morbid obesity 1. obesity induced resp hypercapneic acidosis- pco2 improved from 98 to 67 2. ARELI - likely from hypotension, large diuresis and being on karen-i which decreased afferent glomerular perfusion/ pressure -cr now normal and good uop -however u/a w/ hematuria- PLEASE FOLLOW UP serologies for possible renal - pul m syndrome - renal us - not able to visualize the right kidney -left kidney 11.6 cm- no hydronephrosis 3. hypercapneic resp acidosis and met compensation- per pulm. agree w/ CPAP 4. anemia - per medicine tsat 12.7% ferritin 72- consider iv iron 5. met alkalosis- compensation for hypercapneic resp acidosis and from diuresis 6. replace vit d seen and examined w/ RN- telehealth visit discussed w/ pt and RN -as renal fxn improved and good uop- renal will sign off, call if we can be of further assistance. 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
[2021-01-05] MEDS: ergocalciferol (vitamin D2) 50,000 Unit Capsule 50000 UNIT PO (08:08)
[2021-01-05] MEDS: tamsulosin 0.4 mg Capsule PO (08:09)
[2021-01-05] MEDS: aspirin 81 mg Chew Tablet PO (08:09)
[2021-01-05] MEDS: sotalol 80 mg Tablet 60 MG PO ×2 (08:09→21:55)
[2021-01-05] MEDS: PARoxetine 20 mg Tablet PO (08:09)
[2021-01-05] MEDS: HYDROcodone-acetaminophen 10-325 mg Tablet 1 TAB PO ×2 (08:10→17:53)
[2021-01-05] MEDS: ferric gluconate 125 MG in sodium chloride 0.9% (100 ml) 100 ML 110 MG IV (08:25)
[2021-01-05 09:32] LABS: Basophils % 0.5 %; Eosinophils # 0.3 10^3/uL (0.0-0.8); Eosinophils % 7.8 %; Hematocrit 36.4 % (42.0-52.0); Hemoglobin 10.5 g/dL (11.7-16.6); Lymphocytes % 22.8 %; Mean Corpuscular HGB Conc 28.8 g/dL (30.0-36.0); Mean Corpuscular Volume 100.6 fL (80-94); Mean Platelet Volume 10.5 fL (7.4-10.4); Monocytes # 0.4 10^3/uL (0.2-0.9); Monocytes % 8.7 %; Neutrophils # 2.63 10^3/uL (1.8-7.7); Nucleated Red Blood Cells % 0 %; Platelet Count 178 10^3/cmm (130-400); Red Blood Count 3.62 10^6/uL (4.1-5.3); Red Cell Distribution Width 16.5 % (12.1-15.1); White Blood Count 4.4 10^3/uL (4.0-10.0)
[2021-01-05 09:49] LABS: INR 2.96 (0.8-1.2)
[2021-01-05 09:57] LABS: Alanine Aminotransferase 17 U/L (0-41); Albumin Level 3.4 g/dL (3.5-5.2); Alkaline Phosphatase 77 IU/L (40-130); Anion Gap 11.3 (5-19); Aspartate Amino Transferase 34 U/L (0-40); Blood Urea Nitrogen 20 mg/dL (8-23); Calcium 9.4 mg/dL (8.5-10.5); Carbon Dioxide 35 mmol/L (22-29); Chloride 94 mmol/L (98-107); Globulin 3.3 g/dL (1.3-4.6); Glomerular Filtration Rate 136.1 mL/min (90-130); Glucose 118 mg/dL (65-115); Osmolality Calculated 286 mOsm/kg (285-295); Phosphorus 2.4 mg/dL (2.5-4.5); Potassium 4.3 mmol/L (3.5-5.1); Sodium 136 mmol/L (136-145); Total Bilirubin 0.7 mg/dL (0.15-1.2); Total Protein 6.7 g/dL (6.6-8.7)
--- NOTE | 2021-01-05 10:20 | PC.SOCIAL ---
IMM Update Pg.2 of IMM updated and reviewed with patient who verbalized understanding. Copy provided.
--- NOTE | 2021-01-05 10:27 | P.PN_ITS ---
Subjective Subjective: Interval history: No fever, chill, nausea or vomting Respiratory status stable Medications: Reviewed: Yes Vitals/I&O/Wt Last Vital Signs Temp 98.1 F 01/05/21 19:35 Pulse 66 01/05/21 23:49 Resp 20 H 01/05/21 19:35 BP 129/75 01/05/21 19:35 Pulse Ox 96 01/05/21 23:49 01/05/21 01/05/21 01/06/21 14:59 22:59 06:59 Intake Total 350 / 350 50 / 400 Output Total 450 / 450 250 / 700 Balance -100 / -100 -200 / -300 Physical Exam Const: COMMON NORMALS: no acute distress and patient oriented x3 HENMT: COMMON NORMALS: normocephalic HEAD & SCALP: normocephalic Eye: COMMON NORMALS: Equal, round and reactive pupils present GENERAL EYE: appearance normal, both eyes and all related structures PUPIL: Yes Equal, round and reactive pupils present Neck/C-Spine: COMMON NORMALS: full ROM, no lymphadenopathy, no JVD and Thyroid normal THYROID: Thyroid normal Lymph: LYMPHATIC: no lymphadenopathy noted Resp: COMMON NORMALS: normal respiratory effort, No retractions, No use of accessory muscles and clear to auscultation bilaterally AUSCULTATION: clear to auscultation bilaterally Cardio: COMMON NORMALS: no JVD, regular rate, regular rhythm, S1 normal heart sound present, S2 normal heart sound present, No gallops present (Cardio), No clicks present (Cardio) and No murmurs present (Cardio) RATE: regular rate and bradycardic RHYTHM: regular rhythm HEART SOUNDS: S1 normal heart sound present and S2 normal heart sound present GI: COMMON NORMALS: Normal to inspection, nondistended, normoactive bowel sounds present, Soft to palpation, non-tender and No hepatosplenomegaly present PALPATION: Yes Soft to palpation and Yes No hepatosplenomegaly present OTHER: Obese abdomen, pannus present, with slight erythema Extremity: COMMON NORMALS: normal to inspection, full ROM and no pedal edema NARRATIVE EXTREMITY EXAM: 1+ pitting edema Neuro: COMMON NORMALS: patient oriented x3 and CN's II-XII intact bilaterally Psych: COMMON NORMALS: mental status grossly normal and Normal thought process present THOUGHT PROCESS: Normal thought process present Urinary Catheter Management^: Willingham: Cath Placed During This Visit: yes, but has since been removed by the nurse Reason for Continuing Indwelling Catheter: Decision to DC Catheter Urinary Catheter Date of Insertion: 12/31/20 Urinary Catheter Time of Insertion: 12:41 Date Urinary Catheter Removed: 01/04/21 Time Urinary Catheter Discontinued: 18:40 Data : 01/05/21 08:57 01/05/21 08:57 Micro: Microbiology 12/31/20 17:19 Blood Culture - Final Blood NO GROWTH AFTER 5 DAYS 12/31/20 17:17 Blood Culture - Final Blood NO GROWTH AFTER 5 DAYS 01/03/21 10:15 Urine Culture - Final Urine,Clean Catch Escherichia coli A&P Assessment and plan (1) Acute on chronic respiratory failure: Wean o2 BIPAP while sleeping Chest x-ray in am Abg in am Status: Acute Qualifiers: Respiratory failure complication: hypoxia and hypercapnia Qualified Code(s): J96.21 - Acute and chronic respiratory failure with hypoxia; J96.22 - Acute and chronic respiratory failure with hypercapnia (2) Acute exacerbation of CHF (congestive heart failure): Daily weight Strict i&O Cardiology on board. Status: Acute Qualifiers: Heart failure type: diastolic Qualified Code(s): I50.33 - Acute on chronic diastolic (congestive) heart failure (3) On home oxygen therapy: Status: Chronic (4) Atrial fibrillation: Status: Chronic Qualifiers: Atrial fibrillation type: longstanding persistent Qualified Code(s): I48.11 - Longstanding persistent atrial fibrillation (5) Chronic anticoagulation: Status: Chronic (6) Diabetes mellitus, type II: Status: Chronic Qualifiers: Diabetes mellitus track moving machine operator insulin use: with long-term use Diabetes mellitus complication status: without complication Qualified Code(s): E11.9 - Type 2 diabetes mellitus without complications; Z79.4 - FPC (current) use of insulin Attestations Medical Necessity Statement*: Will require further hospitalization for management of respiratory failrue Time Spent in Patient Care: Greater than 35 minutes (>than 50% of time spent in counselling and/or direct pt care on unit) . Coding Level of Care Code Acute Staff Developer for [facility] Fwd Diagnoses Acute on chronic respiratory failure J96.21; J96.22 Respiratory failure complication: hypoxia and hypercapnia Acute exacerbation of CHF (congestive heart failure) I50.33 Heart failure type: diastolic On home oxygen therapy Z99.81 Atrial fibrillation I48.11 Atrial fibrillation type: longstanding persistent Chronic anticoagulation Z79.01 Diabetes mellitus, type II E11.9; Z79.4 Diabetes mellitus track moving machine operator insulin use: with long-term use Diabetes mellitus complication status: without complication
[2021-01-05 12:35] LABS: Glucose Point of Care 105 mg/dL (70-110)
[2021-01-05] MEDS: cefTRIAXone 1,000 MG in sodium chloride 0.9% (plus) 50 ML 50 MG IV (13:54)
[2021-01-05] MEDS: acetaminophen 325 mg Tablet 650 MG PO ×2 (13:56→19:36)
[2021-01-05 17:37] LABS: Glucose Point of Care 117 mg/dL (70-110)
[2021-01-05] MEDS: pantoprazole DR 40 mg Tablet PO (17:53)
--- NOTE | 2021-01-05 18:59 | P.PN_ITS ---
Subjective Subjective: Interval history: Overall feeling tired heart rate stays in the 60s in sinus rhythm. Medications: Reviewed: Yes Medication Review Details: Current Medications Acetaminophen (Acetaminophen 325 Mg Tablet) 650 mg PO Q4H PRN PRN Reason: MILD PAIN OR INCREASE TEMP Last Admin: 01/04/21 17:44 Dose: 650 mg Documented by: Hydrocodone Bitart/Acetaminophen (Hydrocodone-Acetaminophen 10-325 Mg Tablet) 1 tab PO Q8H PRN PRN Reason: MODERATE PAIN Last Admin: 01/04/21 21:04 Dose: 1 tab Documented by: Aspirin (Aspirin 81 Mg Chew Tablet) 81 mg PO DAILY [facility] Last Admin: 01/04/21 08:05 Dose: 81 mg Documented by: Atropine Sulfate (Atropine 0.1 Mg/Ml Syr 10 Ml) 0.5 mg IVP Q5MIN PRN PRN Reason: FOR HR<60, and pt is symptomatic Dextrose (Dextrose 50% Syringe 50 Ml) 25 ml IVP ONCE PRN; Protocol PRN Reason: hypoglycemia protocol Dextrose (Dextrose 50% Syringe 50 Ml) 50 ml IVP PRN PRN; Protocol PRN Reason: hypoglycemia protocol Glucagon (Glucagon 1 Mg/Ml Inj 1 Ml) 1 mg IM ONCE PRN; Protocol PRN Reason: Adult Acute Hypoglycemia Prot. Dextrose (D5w) 500 mls @ 100 mls/hr IV ONCE PRN; Protocol PRN Reason: Adult Acute Hypoglycemia Prot Ceftriaxone Sodium 1,000 mg/ (Sodium Chloride) 50 mls @ 100 mls/hr IV Q24H [facility]; Protocol Last Infusion: 01/04/21 15:49 Dose: 0 mls/hr Documented by: Insulin Aspart (Insulin Aspart 100 Unit/1 Ml) 0 unit SUBCUT TIDWM [facility]; Protocol Last Admin: 01/04/21 17:24 Dose: Not Given Documented by: Naloxone HCl (Naloxone 0.4 Mg/Ml Sdv) 0.1 mg IVP Q2M PRN PRN Reason: OPIATERV Ondansetron HCl (Ondansetron 2 Mg/Ml Sdv 2 Ml) 4 mg IVP Q8H PRN PRN Reason: vomiting, or N/V if npo Pantoprazole Sodium (Pantoprazole 40 Mg Sdv) 40 mg IVP Q12H [facility] Last Admin: 01/05/21 03:27 Dose: 40 mg Documented by: Paroxetine HCl (Paroxetine 20 Mg Tablet) 20 mg PO DAILY [facility] Last Admin: 01/04/21 08:06 Dose: 20 mg Documented by: Potassium Chloride (Potassium Chloride Er 20 Meq Tablet) 20 meq PO DAILY [facility] Last Admin: 01/04/21 08:05 Dose: 20 meq Documented by: Sotalol HCl (Sotalol 80 Mg Tablet) 60 mg PO BID@0900,2100 [facility] Last Admin: 01/04/21 21:04 Dose: 60 mg Documented by: Tamsulosin HCl (Tamsulosin 0.4 Mg Capsule) 0.4 mg PO DAILY [facility] Last Admin: 01/04/21 08:06 Dose: 0.4 mg Documented by: Warfarin Sodium (Warfarin 7.5 Mg Tablet) 7.5 mg PO SuMoWeFrSa@1400 [facility] Last Admin: 01/03/21 15:04 Dose: 7.5 mg Documented by: Warfarin Sodium (Warfarin 10 Mg Tablet) 10 mg PO TuTh@1400 [facility] Last Admin: 01/04/21 15:07 Dose: 10 mg Documented by: Vitals/I&O/Wt Last Vital Signs Temp 98.0 F 01/05/21 16:00 Pulse 62 01/05/21 16:00 Resp 17 01/05/21 16:00 BP 127/76 01/05/21 16:00 Pulse Ox 96 01/05/21 16:00 01/05/21 01/05/21 01/05/21 06:59 14:59 22:59 Intake Total 480 / 1909.583 350 / 350 50 / 400 Output Total 125 / 475 450 / 450 Balance 355 / 1434.583 -100 / -100 50 / -50 Physical Exam Narrative: EXAM NARRATIVE: GENERAL: Patient is alert, awake and oriented x3. NECK: No jugular vein distension. HEENT: No cyanosis. No icterus. No pallor. HEART: Regular S1 and S2. No murmur, rub or gallop. LUNGS: Clear to auscultate bilaterally. ABDOMEN: Soft, nontender and nondistended. Positive bowel sounds. No guarding, rebound or tenderness. CENTRAL NERVOUS SYSTEM: Grossly nonfocal. EXTREMITIES: Lower extremities without edema bilaterally. Urinary Catheter Management^: Willingham: Cath Placed During This Visit: yes, but has since been removed by the nurse Reason for Continuing Indwelling Catheter: Decision to DC Catheter Urinary Catheter Date of Insertion: 12/31/20 Urinary Catheter Time of Insertion: 12:41 Date Urinary Catheter Removed: 01/04/21 Time Urinary Catheter Discontinued: 18:40 Data : 01/05/21 08:57 01/05/21 08:57 Micro: Microbiology 12/31/20 17:19 Blood Culture - Final Blood NO GROWTH AFTER 5 DAYS 12/31/20 17:17 Blood Culture - Final Blood NO GROWTH AFTER 5 DAYS 01/03/21 10:15 Urine Culture - Final Urine,Clean Catch Escherichia coli A&P Assessment and plan (1) Atrial fibrillation: Patient is in sinus bradycardia may be due to multifactorial including high vagal tone obesity obstructive sleep apnea being on sarah cheri. I will reduce sotalol to 60 mg twice a day. We will continue to monitor. On today's visit reducing sotalol to 60 mg twice a day heart rate has come up at this point we will continue the same medicine. Appear to be stable continue current regimen if noticed heart rate start going up will increase sotalol to 60 mg twice a day Remains in sinus rhythm continue current regimen continue current sotalol dose of 60 mg twice Status: Chronic Qualifiers: Atrial fibrillation type: longstanding persistent Qualified Code(s): I48.11 - Longstanding persistent atrial fibrillation (2) Acute exacerbation of CHF (congestive heart failure): Stable. Continue current regimen Status: Acute Qualifiers: Heart failure type: diastolic Qualified Code(s): I50.33 - Acute on chronic diastolic (congestive) heart failure (3) Acute on chronic respiratory failure: As per medicine appear to be stable. Status: Acute Qualifiers: Respiratory failure complication: hypoxia and hypercapnia Qualified Code(s): J96.21 - Acute and chronic respiratory failure with hypoxia; J96.22 - Acute and chronic respiratory failure with hypercapnia (4) Diabetes mellitus, type II: On insulin Status: Chronic Qualifiers: Diabetes mellitus group home insulin use: with tank terminal gauger use Diabetes mellitus complication status: without complication Qualified Code(s): E11.9 - T ype 2 diabetes mellitus without complications; Z79.4 - terminal system operator (current) use of insulin (5) Morbid obesity with BMI of 50.0-59.9, adult: Advised to reduce weight Status: Acute Attestations Medical Necessity Statement*: As per medicine 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 Business Objects for Daisy Hdz Patient Type Established History Detailed Exam Detailed Medical Decision Making Moderate Complexity Diagnoses Atrial fibrillation I48.11 Atrial fibrillation type: longstanding persistent Acute exacerbation of CHF (congestive heart failure) I50.33 Heart failure type: diastolic Acute on chronic respiratory failure J96.21; J96.22 Respiratory failure complication: hypoxia and hypercapnia Diabetes mellitus, type II E11.9; Z79.4 Diabetes mellitus tank terminal gauger insulin use: with tank terminal gauger use Diabetes mellitus complication status: without complication Morbid obesity with BMI of 50.0-59.9, adult E66.01; Z68.43
[2021-01-05 20:54] LABS: Glucose Point of Care 124 mg/dL (70-110)
[2021-01-06 02:34] VITALS: PULSE 73; RESP 19; O2SAT 95
[2021-01-06 03:15] VITALS: BP 132/81; PULSE 61; RESP 18; TEMP 36.8; O2SAT 99
[2021-01-06] MEDS: HYDROcodone-acetaminophen 10-325 mg Tablet 1 TAB PO ×2 (03:29→11:36)
[2021-01-06 06:40] LABS: Glucose Point of Care 106 mg/dL (70-110)
[2021-01-06 07:43] VITALS: BP 132/70; PULSE 58; RESP 18; TEMP 36.9; O2SAT 97
[2021-01-06 08:23] VITALS: PULSE 75; O2SAT 93
[2021-01-06] MEDS: acetaminophen 325 mg Tablet 650 MG PO (08:33)
[2021-01-06] MEDS: PARoxetine 20 mg Tablet PO (08:34)
[2021-01-06] MEDS: tamsulosin 0.4 mg Capsule PO (08:34)
[2021-01-06] MEDS: pantoprazole DR 40 mg Tablet PO (08:34)
[2021-01-06] MEDS: sotalol 80 mg Tablet 60 MG PO (08:34)
[2021-01-06] MEDS: aspirin 81 mg Chew Tablet PO (08:34)
[2021-01-06 09:22] LABS: ALBUMIN 57 %; ALPHA-1-GLOBULINS 1 %; ALPHA-2-GLOBULINS 11 %; BETA GLOBULINS 13 %; CREATININE, 24 HOUR URINE 1.49 g/24 h (0.50-2.15); GAMMA GLOBULINS 19 %; PROTEIN, TOTAL, 24 HR UR 452 mg/24 h (<150); Protein/Creatinine Ratio 0.302 (< OR = 0.114); Protein/Creatinine Ratio 302 mg/g creat (< OR = 114)
[2021-01-06 09:22] LABS: ALBUMIN 2.6 g/dL (3.8-4.8); ALPHA 1 GLOBULIN 0.3 g/dL (0.2-0.3); ALPHA 2 GLOBULIN 0.7 g/dL (0.5-0.9); Anti-Double Strand DNA AB <1 IU/mL; Anti-Nuclear Antibody Screen NEGATIVE (NEGATIVE); Anti-streptolysin O 195 IU/mL (<200); BETA 1 GLOBULIN 0.5 g/dL (0.4-0.6); BETA 2 GLOBULIN 0.4 g/dL (0.2-0.5); GAMMA GLOBULIN 0.9 g/dL (0.8-1.7); PROTEIN, TOTAL 5.3 g/dL (6.1-8.1)
[2021-01-06 10:30] LABS: Basophils % 0.5 %; Eosinophils # 0.3 10^3/uL (0.0-0.8); Hematocrit 33.7 % (42.0-52.0); Hemoglobin 9.8 g/dL (11.7-16.6); Lymphocytes # 0.9 10^3/uL (0.8-4.8); Lymphocytes % 25.3 %; Mean Corpuscular HGB Conc 29.1 g/dL (30.0-36.0); Mean Corpuscular Hemoglobin 29.5 pg (28.0-34.0); Mean Corpuscular Volume 101.5 fL (80-94); Mean Platelet Volume 10.5 fL (7.4-10.4); Monocytes # 0.5 10^3/uL (0.2-0.9); Monocytes % 13.1 %; Neutrophils % 51.8 %; Nucleated Red Blood Cells % 0 %; Platelet Count 175 10^3/cmm (130-400); Red Blood Count 3.32 10^6/uL (4.1-5.3); Red Cell Distribution Width 16.5 % (12.1-15.1); White Blood Count 3.7 10^3/uL (4.0-10.0)
[2021-01-06 10:41] LABS: INR 3.67 (0.8-1.2)
[2021-01-06 10:49] LABS: Alanine Aminotransferase 17 U/L (0-41); Albumin Level 3.1 g/dL (3.5-5.2); Alkaline Phosphatase 69 IU/L (40-130); Anion Gap 9.4 (5-19); Aspartate Amino Transferase 32 U/L (0-40); Blood Urea Nitrogen 12 mg/dL (8-23); Calcium 9.1 mg/dL (8.5-10.5); Carbon Dioxide 36 mmol/L (22-29); Chloride 99 mmol/L (98-107); Globulin 3.1 g/dL (1.3-4.6); Glomerular Filtration Rate 167.9 mL/min (90-130); Glucose 123 mg/dL (65-115); Magnesium 1.8 mg/dL (1.7-2.3); Osmolality Calculated 291 mOsm/kg (285-295); Phosphorus 1.7 mg/dL (2.5-4.5); Potassium 4.4 mmol/L (3.5-5.1); Sodium 140 mmol/L (136-145); Total Bilirubin 0.7 mg/dL (0.15-1.2); Total Protein 6.2 g/dL (6.6-8.7)
[2021-01-06 10:56] LABS: Glucose Point of Care 116 mg/dL (70-110)
[2021-01-06 10:56] LABS: Procalcitonin 0.04 ng/mL (0-0.5)
[2021-01-06 11:12] VITALS: BP 125/79; PULSE 61; RESP 18; TEMP 36.7; O2SAT 94
[2021-01-06 14:46] VITALS: O2SAT 87; O2SAT 93
--- NOTE | 2021-01-06 16:36 | PM.DCS ---
Discharge Providers Date of Admission: 12/31/20 14:09 Date of Discharge: January 06, 2021 Attending Provider at Admission: Harris Pierson MD Attending Provider at Discharge: Emmie Rahman Primary Care Provider: Robert Mustafa Diagnoses at Discharge Discharge Diagnosis (1) Acute on chronic respiratory failure: Status: Acute Qualifiers: Respiratory failure complication: hypoxia and hypercapnia Qualified Code(s): J96.21 - Acute and chronic respiratory failure with hypoxia; J96.22 - Acute and chronic respiratory failure with hypercapnia (2) Acute exacerbation of CHF (congestive heart failure): Status: Acute Qualifiers: Heart failure type: diastolic Qualified Code(s): I50.33 - Acute on chronic diastolic (congestive) heart failure (3) On home oxygen therapy: Status: Chronic Permanent problem details: 2-3 L (4) Atrial fibrillation: Status: Chronic Qualifiers: Atrial fibrillation type: longstanding persistent Qualified Code(s): I48.11 - Longstanding persistent atrial fibrillation (5) Chronic anticoagulation: Status: Chronic (6) Diabetes mellitus, type II: Status: Chronic Qualifiers: Diabetes mellitus mcfp insulin use: with remote computer terminal operator use Diabetes mellitus complication status: without complication Qualified Code(s): E11.9 - Type 2 diabetes mellitus without complications; Z79.4 - manager intermediate (current) use of insulin Reason for Visit Reason for Visit: syncope Hospital Course Hospital Course 65-year-old with a past medical history significant for type 2 diabetes mellitus, gastroesophageal reflux disease, peptic ulcer disease, hypertension, morbid obesity, paroxysmal atrial fibrillation on Coumadin,Obesity hypoventilation syndrome,severe chronic obstructive sleep apnea with prior order for AVAPS, and chronic o2 dependent respiratory failure who was sent to hospital with respiratory distress. Upon arrival to emergency room patient was noted to have initial laboratory workup showing a WBC of 4.9, hemoglobin 10.6, hematocrit 35.1 and platelet count 205. Sodium 129, potassium 5.5, chloride 88, bicarb 38, BUN 11 and creatinine 0.6.This is the initial arterial blood gases showed a pH of 7.39, pCO2 of 77.8 and a bicarb of 46.7. Patient was suspected to have multifactorial etiology of respiratory failure. For acute on chronic diastolic HF exacerbation, initially started on diuretics however this were held due to renal dysfunction. Nephrology was consulted. Creatinine returned to baseline after was started on IV fluids. At discharge diuretics were resumed. Also started on bronchodilator therapy. He was placed on BiPAP q.h.s.. Respiratory status continued to improve. Patient previously had sleep apnea with AVAPS which was ordered however had not been delivered. This was arranged at discharge. Home o2 eval showed patient was requiring 3L of o2 via NC. Additionally during hospitalization cardiology was consulted due to bradycardia. Patient had a known history of atrial fibrillation and was on Sotalol 120 mg b.i.d.. This dose was decreased to 60 mg oral twice daily. Bradycardia had resolved. He was addition continued on Coumadin. Was advised to hold dose on day of discharge due to slight supratherapeutic.To resume after repeat INR on 01/07/2021. Outpatient follow-up with pulmonary medicine and cardiology was requested. Physical Exam Const: COMMON NORMALS: no acute distress and patient oriented x3 HENMT: COMMON NORMALS: normocephalic HEAD & SCALP: normocephalic Eye: COMMON NORMALS: Equal, round and reactive pupils present GENERAL EYE: appearance normal, both eyes and all related structures PUPIL: Yes Equal, round and reactive pupils present Neck/C-Spine: COMMON NORMALS: full ROM, no lymphadenopathy, no JVD and Thyroid normal THYROID: Thyroid normal Lymph: LYMPHATIC: no lymphadenopathy noted Resp: COMMON NORMALS: normal respiratory effort, No retractions, No use of accessory muscles and clear to auscultation bilaterally AUSCULTATION: clear to auscultation bilaterally Cardio: COMMON NORMALS: no JVD, regular rate, regular rhythm, S1 normal heart sound present, S2 normal heart sound present, No gallops present (Cardio), No clicks present (Cardio) and No murmurs present (Cardio) RATE: regular rate and bradycardic RHYTHM: regular rhythm HEART SOUNDS: S1 normal heart sound present and S2 normal heart sound present GI: COMMON NORMALS: Normal to inspection, nondistended, normoactive bowel sounds present, Soft to palpation, non-tender and No hepatosplenomegaly present PALPATION: Yes Soft to palpation and Yes No hepatosplenomegaly present OTHER: Obese abdomen, pannus present, with slight erythema Extremity: COMMON NORMALS: normal to inspection, full ROM and no pedal edema NARRATIVE EXTREMITY EXAM: 1+ pitting edema Neuro: COMMON NORMALS: patient oriented x3 and CN's II-XII intact bilaterally Psych: COMMON NORMALS: mental status grossly normal and Normal thought process present THOUGHT PROCESS: Normal thought process present Urinary Catheter Management^: Willingham: Cath Placed During This Visit: yes, but has since been removed by the nurse Reason for Continuing Indwelling Catheter: Decision to DC Catheter Urinary Catheter Date of Insertion: 12/31/20 Urinary Catheter Time of Insertion: 12:41 Date Urinary Catheter Removed: 01/04/21 Time Urinary Catheter Discontinued: 18:40 Discharge Data Data Completed and Pending: Completed Studies During Hospitalization Category Date Time Status XR chest 1V edna ble [id number] Urgent Exams 12/31/20 11:08 Completed CV. echo complete * [id number] Routine Ultrasound 01/03/21 16:58 Completed US renal BI* [id number] Routine Ultrasound 01/03/21 09:15 Completed Pending at discharge Category Date Time Status RUSS Screen w/ Ref charisma Routine Lab 01/03/21 10:30 Results Anti-Neutrophil C ytoplasmic AB Rout ine Lab 01/03/21 10:30 Received Protein Electroph oresis, 24 HR Rout ine Lab 01/03/21 Results Labs from last 24 hours 01/06/21 01/06/21 01/06/21 10:52 10:23 10:23 WBC RBC Hgb Hct MCV MCH MCHC RDW Plt Count MPV Neut % (Auto) Lymph % (Auto) Taylor % (Auto) Eos % (Auto) Baso % (Auto) Neut # (Auto) Lymph # (Auto) Taylor # (Auto) Eos # (Auto) Baso # (Auto) Nucleated RBC % (a uto) Nucleated RBCs # PT 37.00 H INR 3.67 H Sodium 140 Potassium 4.4 Chloride 99 Carbon Dioxide 36 H Anion Gap 9.4 BUN 12 Creatinine 0.5 L GFR Calculation 167.9 H Glucose 123 H POC Glucose 116 H Calculated Osmolal ity 291 Calcium 9.1 Phosphorus 1.7 L Magnesium 1.8 Total Bilirubin 0.7 AST 32 ALT 17 Alkaline Phosphata se 69 Total Protein 6.2 L Albumin 3.1 L Globulin 3.1 Pbfzq-4-Fvemjzngd Anxqt-3-Nyydckscf Beta Globulins Ykff-2-Impzqwbc Liwg-2-Vhgmcdma Gamma Globulins Abnorm Protein Ban d 1 Procalcitonin 0.04 Ur Creatinine 24 H our Ur Total Protein 2 4 Hr Protein/Creatinin Ratio Protein/Creat Rati o 24h Urine Albumin U Abnormal Prot Ba nd 1 U Abnormal Prot Ba nd 2 U Abnormal Prot Ba nd 3 Urine PEP Interpre t Pro Electrophoresi s Int Serum Immunofixati on RUSS Screen Anti-ds DNA IgG Ab Anti-Streptolysin O Ab 01/06/21 01/06/21 01/05/21 10:23 06:36 20:43 WBC 3.7 L RBC 3.32 L Hgb 9.8 L Hct 33.7 L MCV 101.5 H MCH 29.5 MCHC 29.1 L RDW 16.5 H Plt Count 175 MPV 10.5 H Neut % (Auto) 51.8 Lymph % (Auto) 25.3 Taylor % (Auto) 13.1 Eos % (Auto) 9.0 Baso % (Auto) 0.5 Neut # (Auto) 1.90 Lymph # (Auto) 0.9 Taylor # (Auto) 0.5 Eos # (Auto) 0.3 Baso # (Auto) 0.0 Nucleated RBC % (a uto) 0 Nucleated RBCs # 0.0 PT INR Sodium Potassium Chloride Carbon Dioxide Anion Gap BUN Creatinine GFR Calculation Glucose POC Glucose 106 124 H Calculated Osmolal ity Calcium Phosphorus Magnesium Total Bilirubin AST ALT Alkaline Phosphata se Total Protein Albumin Globulin Gyjjq-4-Pgscmhyfn Ectwk-8-Agpfadlrw Beta Globulins Cbse-9-Mcajrjme Tvkh-6-Yflavhxa Gamma Globulins Abnorm Protein Ban d 1 Procalcitonin Ur Creatinine 24 H our Ur Total Protein 2 4 Hr Protein/Creatinin Ratio Protein/Creat Rati o 24h Urine Albumin U Abnormal Prot Ba nd 1 U Abnormal Prot Ba nd 2 U Abnormal Prot Ba nd 3 Urine PEP Interpre t Pro Electrophoresi s Int Serum Immunofixati on RUSS Screen Anti-ds DNA IgG Ab Anti-Streptolysin O Ab 01/05/21 01/03/21 01/03/21 17:33 Unknown 10:30 WBC RBC Hgb Hct MCV MCH MCHC RDW Plt Count MPV Neut % (Auto) Lymph % (Auto) Taylor % (Auto) Eos % (Auto) Baso % (Auto) Neut # (Auto) Lymph # (Auto) Taylor # (Auto) Eos # (Auto) Baso # (Auto) Nucleated RBC % (a uto) Nucleated RBCs # PT INR Sodium Potassium Chloride Carbon Dioxide Anion Gap BUN Creatinine GFR Calculation Glucose POC Glucose 117 H Calculated Osmolal ity Calcium Phosphorus Magnesium Total Bilirubin AST ALT Alkaline Phosphata se Total Protein Albumin Globulin Bcawm-3-Qcaojaazf 1 Dqaqm-2-Aimfeyret 11 Beta Globulins 13 Drkw-4-Zpqnmjke Allq-7-Yskujgqd Gamma Globulins 19 Abnorm Protein Ban d 1 Procalcitonin Ur Creatinine 24 H our 1.49 Ur Total Protein 2 4 Hr 452 H Protein/Creatinin Ratio 302 H Protein/Creat Rati o 24h 0.302 H Urine Albumin 57 U Abnormal Prot Ba nd 1 Not Reportable U Abnormal Prot Ba nd 2 Not Reportable U Abnormal Prot Ba nd 3 Not Reportable Urine PEP Interpre t See note Pro Electrophoresi s Int Serum Immunofixati on RUSS Screen Anti-ds DNA IgG Ab Anti-Streptolysin O Ab 195 01/03/21 01/03/21 01/03/21 10:30 10:30 10:30 WBC RBC Hgb Hct MCV MCH MCHC RDW Plt Count MPV Neut % (Auto) Lymph % (Auto) Taylor % (Auto) Eos % (Auto) Baso % (Auto) Neut # (Auto) Lymph # (Auto) Taylor # (Auto) Eos # (Auto) Baso # (Auto) Nucleated RBC % (a uto) Nucleated RBCs # PT INR Sodium Potassium Chloride Carbon Dioxide Anion Gap BUN Creatinine GFR Calculation Glucose POC Glucose Calculated Osmolal ity Calcium Phosphorus Magnesium Total Bilirubin AST ALT Alkaline Phosphata se Total Protein Albumin Globulin Uvmnt-2-Ilripuagv Rkird-8-Dveqhmipq Beta Globulins Djxq-4-Fpluzpmw Yejp-8-Kbkadpzl Gamma Globulins Abnorm Protein Ban d 1 Procalcitonin Ur Creatinine 24 H our Ur Total Protein 2 4 Hr Protein/Creatinin Ratio Protein/Creat Rati o 24h Urine Albumin U Abnormal Prot Ba nd 1 U Abnormal Prot Ba nd 2 U Abnormal Prot Ba nd 3 Urine PEP Interpre t Pro Electrophoresi s Int Serum Immunofixati on See note RUSS Screen Negative Anti-ds DNA IgG Ab <1 Anti-Streptolysin O Ab 01/03/21 10:30 WBC RBC Hgb Hct MCV MCH MCHC RDW Plt Count MPV Neut % (Auto) Lymph % (Auto) Taylor % (Auto) Eos % (Auto) Baso % (Auto) Neut # (Auto) Lymph # (Auto) Taylor # (Auto) Eos # (Auto) Baso # (Auto) Nucleated RBC % (a uto) Nucleated RBCs # PT INR Sodium Potassium Chloride Carbon Dioxide Anion Gap BUN Creatinine GFR Calculation Glucose POC Glucose Calculated Osmolal ity Calcium Phosphorus Magnesium Total Bilirubin AST ALT Alkaline Phosphata se Total Protein 5.3 L Albumin 2.6 L Globulin Jfzid-2-Xnzdrpxqm 0.3 Wfhzj-5-Xrczgxwdy 0.7 Beta Globulins Qzek-6-Pnjhvprz 0.5 Ipvi-4-Zkmeidja 0.4 Gamma Globulins 0.9 Abnorm Protein Ban d 1 Not Reportable Procalcitonin Ur Creatinine 24 H our Ur Total Protein 2 4 Hr Protein/Creatinin Ratio Protein/Creat Rati o 24h Urine Albumin U Abnormal Prot Ba nd 1 U Abnormal Prot Ba nd 2 Not Reportable U Abnormal Prot Ba nd 3 Not Reportable Urine PEP Interpre t Pro Electrophoresi s Int See note Serum Immunofixati on RUSS Screen Anti-ds DNA IgG Ab Anti-Streptolysin O Ab Vitals: Last Vital Signs Temp 98.1 F 01/06/21 11:12 Pulse 61 01/06/21 11:12 Resp 18 01/06/21 11:12 BP 125/79 01/06/21 11:12 Pulse Ox 87 L 01/06/21 14:46 Discharge Plan Discharge Patient Disposition: Home Health Service Condition: Stable Prescriptions: New sotalol 80 mg Tablet 60 mg PO BID@0900,2100 Qty: 60 RF: 0 lisinopril 2.5 mg tablet 2.5 mg PO DAILY Qty: 30 RF: 0 Continued omeprazole 40 mg Capsule,Delayed Release(Dr/Ec) 40 mg PO DAILY RF: 0 furosemide 40 mg Tablet 40 mg PO BID RF: 0 hydrocodone-acetaminophen 10-325 mg tablet 1 tab PO Q6H PRN (Reason: Pain) RF: 0 tamsulosin 0.4 mg Capsule 0.4 mg PO DAILY RF: 0 paroxetine HCl 20 mg Tablet 20 mg PO DAILY RF: 0 warfarin 5 mg Tablet See Rx Instructions .ROUTE .COMPLEX RF: 0 aspirin 81 mg Tablet,Chewable 81 mg PO DAILY RF: 0 potassium chloride 20 mEq Tablet Extended Release 20 meq PO DAILY RF: 0 metformin 500 mg tablet 500 mg PO DAILY@0500 RF: 0 Discontinued sotalol 120 mg Tablet 120 mg PO BID RF: 0 lisinopril 10 mg tablet 10 mg PO DAILY@0500 RF: 0 Discharge Orders: Discharge Order (Routine); Ordered 01/06/21 Ordered By: Emmie Rahman Other Ambulatory Orders: Basic Metabolic Panel (Routine) Timeframe: 3 Days Facility: [facility] - Location: Lab - Main Lab Ordered By: Emmie Rahman DME: Oxygen (Order) Location: None Selected Ordered By: Emmie Rahman DME: Oxygen (Order) Location: None Selected Ordered By: Emmie Rahman Referrals: [facility] [Outside] [facility] [Outside] Robert Mustafa [Primary Care Provider] - 01/18/21 10:00 am Ashu Patel MD [Physician] - 01/14/21 9:45 am Discharge Diet: Usual diet Discharge Activity: Increase activity as tolerated Patient Instructions: Heart Failure (DC), Acute Respiratory Distress Syndrome (DC), Hyponatremia (DC), Weight Management (DC), Hyperkalemia (DC), Opioid Safety Activity Restrictions/Additional Instructions: Monitor daily weight Return to ER for worsening respiratory distress. Discharge Attestations Time Spent in Discharge Care*: greater than 30 min Specific Discharge Activities: educating patient, discussing with pcp/other providers, discussing with business case analyst/social workers/dc planners, documenting/other paperwork and evaluating patient/reviewing data Status at Discharge: Cognitive status at discharge: cognitively intact, Behavioral status at discharge: cooperative, Functional status at discharge: other assisted ambulation Overall status at discharge: patient is progressing back to baseline Quality Metrics Clinical Quality Measures During this hospital stay, did patient experience: None Coding Level of Care Code Acute Chg FW DC note Diagnoses Acute on chronic respiratory failure J96.21; J96.22 Respiratory failure complication: hypoxia and hypercapnia Acute exacerbation of CHF (congestive heart failure) I50.33 Heart failure type: diastolic On home oxygen therapy Z99.81 Atrial fibrillation I48.11 Atrial fibrillation type: longstanding persistent Chronic anticoagulation Z79.01 Diabetes mellitus, type II E11.9; Z79.4 Diabetes mellitus remote computer terminal operator insulin use: with remote computer terminal operator use Diabetes mellitus complication status: without complication
--- NOTE | 2021-01-06 20:50 | PM.PN ---
Subjective Subjective: Interval history: Appear to be stable heart rate is under control denies any complaint. Medications: Reviewed: Yes Medication Review Details: Current Medications Acetaminophen (Acetaminophen 325 Mg Tablet) 650 mg PO Q4H PRN PRN Reason: MILD PAIN OR INCREASE TEMP Last Admin: 01/04/21 17:44 Dose: 650 mg Documented by: Hydrocodone Bitart/Acetaminophen (Hydrocodone-Acetaminophen 10-325 Mg Tablet) 1 tab PO Q8H PRN PRN Reason: MODERATE PAIN Last Admin: 01/04/21 21:04 Dose: 1 tab Documented by: Aspirin (Aspirin 81 Mg Chew Tablet) 81 mg PO DAILY [facility] Last Admin: 01/04/21 08:05 Dose: 81 mg Documented by: Atropine Sulfate (Atropine 0.1 Mg/Ml Syr 10 Ml) 0.5 mg IVP Q5MIN PRN PRN Reason: FOR HR<60, and pt is symptomatic Dextrose (Dextrose 50% Syringe 50 Ml) 25 ml IVP ONCE PRN; Protocol PRN Reason: hypoglycemia protocol Dextrose (Dextrose 50% Syringe 50 Ml) 50 ml IVP PRN PRN; Protocol PRN Reason: hypoglycemia protocol Glucagon (Glucagon 1 Mg/Ml Inj 1 Ml) 1 mg IM ONCE PRN; Protocol PRN Reason: Adult Acute Hypoglycemia Prot. Dextrose (D5w) 500 mls @ 100 mls/hr IV ONCE PRN; Protocol PRN Reason: Adult Acute Hypoglycemia Prot Ceftriaxone Sodium 1,000 mg/ (Sodium Chloride) 50 mls @ 100 mls/hr IV Q24H KAI; Protocol Last Infusion: 01/04/21 15:49 Dose: 0 mls/hr Documented by: Insulin Aspart (Insulin Aspart 100 Unit/1 Ml) 0 unit SUBCUT TIDWM KAI; Protocol Last Admin: 01/04/21 17:24 Dose: Not Given Documented by: Naloxone HCl (Naloxone 0.4 Mg/Ml Sdv) 0.1 mg IVP Q2M PRN PRN Reason: OPIATERV Ondansetron HCl (Ondansetron 2 Mg/Ml Sdv 2 Ml) 4 mg IVP Q8H PRN PRN Reason: vomiting, or N/V if npo Pantoprazole Sodium (Pantoprazole 40 Mg Sdv) 40 mg IVP Q12H KAI Last Admin: 01/05/21 03:27 Dose: 40 mg Documented by: Paroxetine HCl (Paroxetine 20 Mg Tablet) 20 mg PO DAILY [facility] Last Admin: 01/04/21 08:06 Dose: 20 mg Documented by: Potassium Chloride (Potassium Chloride Er 20 Meq Tablet) 20 meq PO DAILY [facility] Last Admin: 01/04/21 08:05 Dose: 20 meq Documented by: Sotalol HCl (Sotalol 80 Mg Tablet) 60 mg PO BID@0900,2100 [facility] Last Admin: 01/04/21 21:04 Dose: 60 mg Documented by: Tamsulosin HCl (Tamsulosin 0.4 Mg Capsule) 0.4 mg PO DAILY [facility] Last Admin: 01/04/21 08:06 Dose: 0.4 mg Documented by: Warfarin Sodium (Warfarin 7.5 Mg Tablet) 7.5 mg PO SuMoWeFrSa@1400 [facility] Last Admin: 01/03/21 15:04 Dose: 7.5 mg Documented by: Warfarin Sodium (Warfarin 10 Mg Tablet) 10 mg PO TuTh@1400 [facility] Last Admin: 01/04/21 15:07 Dose: 10 mg Documented by: Vitals/I&O/Wt Last Vital Signs Temp 98.1 F 01/06/21 11:12 Pulse 61 01/06/21 11:12 Resp 18 01/06/21 11:12 BP 125/79 01/06/21 11:12 Pulse Ox 87 L 01/06/21 14:46 01/06/21 01/06/21 01/06/21 06:59 14:59 22:59 Output Total 660 / 1360 Balance -660 / -960 Physical Exam Narrative: EXAM NARRATIVE: GENERAL: Patient is alert, awake and oriented x3. NECK: No jugular vein distension. HEENT: No cyanosis. No icterus. No pallor. HEART: Regular S1 and S2. No murmur, rub or gallop. LUNGS: Clear to auscultate bilaterally. ABDOMEN: Soft, nontender and nondistended. Positive bowel sounds. No guarding, rebound or tenderness. CENTRAL NERVOUS SYSTEM: Grossly nonfocal. EXTREMITIES: Lower extremities without edema bilaterally. Urinary Catheter Management^: Willingham: Cath Placed During This Visit: yes, but has since been removed by the nurse Reason for Continuing Indwelling Catheter: Decision to DC Catheter Urinary Catheter Date of Insertion: 12/31/20 Urinary Catheter Time of Insertion: 12:41 Date Urinary Catheter Removed: 01/04/21 Time Urinary Catheter Discontinued: 18:40 Data : 01/06/21 10:23 01/06/21 10:23 Micro: Microbiology 12/31/20 17:19 Blood Culture - Final Blood NO GROWTH AFTER 5 DAYS 12/31/20 17:17 Blood Culture - Final Blood NO GROWTH AFTER 5 DAYS A&P Assessment and plan (1) Atrial fibrillation: Patient is in sinus bradycardia may be due to multifactorial including high vagal tone obesity obstructive sleep apnea being on sarah cheri. I will reduce sotalol to 60 mg twice a day. We will continue to monitor. On today's visit reducing sotalol to 60 mg twice a day heart rate has come up at this point we will continue the same medicine. Appear to be stable continue current regimen if noticed heart rate start going up will increase sotalol to 60 mg twice a day Remains in sinus rhythm continue current regimen continue current sotalol dose of 60 mg twice Patient appear to be stable on sotalol 60 mg twice a day continue current regimen. Follow-up with cardiology Status: Chronic Qualifiers: Atrial fibrillation type: longstanding persistent Qualified Code(s): I48.11 - Longstanding persistent atrial fibrillation (2) Acute exacerbation of CHF (congestive heart failure): Stable. Continue current regimen Status: Acute Qualifiers: Heart failure type: diastolic Qualified Code(s): I50.33 - Acute on chronic diastolic (congestive) heart failure (3) Acute on chronic respiratory failure: As per medicine Status: Acute Qualifiers: Respiratory failure complication: hypoxia and hypercapnia Qualified Code(s): J96.21 - Acute and chronic respiratory failure with hypoxia; J96.22 - Acute and chronic respiratory failure with hypercapnia (4) Diabetes mellitus, type II: On insulin Status: Chronic Qualifiers: Diabetes mellitus terminal operations manager insulin use: with senior care use Diabetes mellitus complication status: without complication Qualified Code(s): E11.9 - Type 2 diabetes mellitus without complications; Z79.4 - continuous churn buttermaker (current) use of insulin (5) Morbid obesity with BMI of 50.0-59.9, adult: Advised to reduce weight Status: Acute Attestations Medical Necessity Statement*: From a cardiac perspective patient can be discharged home. 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 Nurse Unit Manager for Daisy Hdz Patient Type Established History Detailed Exam Detailed Medical Decision Making Moderate Complexity Diagnoses Atrial fibrillation I48.11 Atrial fibrillation type: longstanding persistent Acute exacerbation of CHF (congestive heart failure) I50.33 Heart failure type: diastolic Acute on chronic respiratory failure J96.21; J96.22 Respiratory failure complication: hypoxia and hypercapnia Diabetes mellitus, type II E11.9; Z79.4 Diabetes mellitus terminal operations manager insulin use: with terminal operations manager use Diabetes mellitus complication status: without complication Morbid obesity with BMI of 50.0-59.9, adult E66.01; Z68.43
[2021-01-07 12:04] LABS: ANCA Interp Negative (Negative)
== END 2021-01-06 16:35 | disposition home health service (06) | DRG 189 ==
LOC: ER 14:43 → ICU 14:51 → MEDSURG 01-03 13:45
PROVIDERS: Internal Medicine Nephrology; Admitting Provider Family Medicine; Emergency Provider Family Medicine; PCP Family Medicine; Visit Provider Hospitalist
DX: J96.22 Acute and chronic respiratory failure with hypercapnia (principal); I50.33 Acute on chronic diastolic (congestive) heart failure; E66.2 Morbid (severe) obesity with alveolar hypoventilation; Z68.43 Body mass index [BMI] 50.0-59.9, adult; I48.11 Longstanding persistent atrial fibrillation; N17.9 Acute kidney failure, unspecified; E87.3 Alkalosis; N39.0 Urinary tract infection, site not specified; J96.21 Acute and chronic respiratory failure with hypoxia; E11.9 Type 2 diabetes mellitus without complications; K21.9 Gastro-esophageal reflux disease without esophagitis; I11.0 Hypertensive heart disease with heart failure; Z87.01 Personal history of pneumonia (recurrent); Z87.891 Personal history of nicotine dependence; Z99.81 Dependence on supplemental oxygen; I95.9 Hypotension, unspecified; R00.1 Bradycardia, unspecified; E87.5 Hyperkalemia; Z79.01 Long term (current) use of anticoagulants; Z79.84 Long term (current) use of oral hypoglycemic drugs; Z79.82 Long term (current) use of aspirin; Z79.891 Long term (current) use of opiate analgesic; Z87.11 Personal history of peptic ulcer disease
CPT/HCPCS: 36415; 36416; 36600; 51702; 71045; 76770; 80051; 80053; 80061; 81001; 82306; 82330; 82436; 82550; 82728; 82803; 82805; 82962; 83036; 83516; 83540; 83550; 83605; 83735; 83880; 84100; 84133; 84145; 84155; 84156; 84165; 84166; 84260; 84300; 84443; 84484; 84550; 85025; 85610; 86038; 86060; 86225; 87040; 87077; 87086; 87186; 93005; 93306; 94660; 96372; 96374; 97110; 97116; 97163; 97167; 97530; 97535; 99291; C9113; J0696; J1815; J1940; J2916; J3490; J7030; J7040; Q3014

== ENCOUNTER 2021-03-30 17:46 | Inpatient (IN) | payer MEDICARE, SELFPAY ==
[2021-03-30] VITALS (11 sets, daily range): BP systolic 157–162; BP diastolic 72–89; PULSE 59–84; RESP 16–26; TEMP 36.4–36.6; O2SAT 93–100; BMI 52.9
--- NOTE | 2021-03-30 17:54 | XRR_ITS ---
PROCEDURE INFORMATION: Exam: XR Chest Exam date and time: 03/30/2021 5:54 PM Age: 65 years old Clinical indication: Shortness of breath; Additional info: Cough TECHNIQUE: Imaging protocol: XR of the chest. Views: 1 view. Total images: 1 COMPARISON: CR XR chest 1V portable [id number] 12/31/2020 11:20 AM FINDINGS: Lungs: . Silhouetting of the right hemidiaphragm which could be secondary to atelectasis, focal edema, and/or pneumonia. Pleural spaces: Suspected small volume right pleural effusion. Heart/Mediastinum: Cardiomegaly. Bones/joints: Mild scoliotic curvature of the spine. Right shoulder nails. Other findings: Marked obesity. XR/XR chest 1V portable [id number] IMPRESSION: 1. Suspected small volume right pleural effusion. 2. Silhouetting of the right hemidiaphragm which could be secondary to atelectasis, focal edema, and/or pneumonia. 3. Cardiomegaly.
--- NOTE | 2021-03-30 17:55 | ECG_ITS ---
[facility] Test Date: 2021-03-30 Pat Name: Nhan Sol Department: Room: Gender: Male Telephone Service Representative: : 1955 Requested By: Chico Angel Order Number: [id number] Sammie MD: Michelle Rogers M.D. Measurements Intervals [place] Rate: 82 P: CO: QRS: -29 QRSD: 125 T: 67 QT: 387 QTc: 454 Interpretive Statements Normal sinus rhythm with frequent PACs POSSIBLE LATERAL MYOCARDIAL INFARCTION , OF INDETERMINATE AGE [30 ms Q WAVE IN I/aVL/V5/V6] Compared to ECG 01/02/2021 22:13:32 Sinus bradycardia no longer present First degree AV block no longer present Myocardial infarct finding still present Electronically Signed On 03-30-2021 21:43:42 CDT by Michelle Rogers M.D. [email or web address]
--- NOTE | 2021-03-30 17:57 | ED_ITS ---
HPI - SOB/Dyspnea General: Chief Complaint: Shortness of Breath/Dyspnea Stated Complaint: SOB, COPD Time Seen by Provider: 03/30/21 17:54 History of Present Illness: HPI Narrative: This patient is a 65-year-old male that presents to the emergency department via EMS for acute shortness of breath. Patient has a long history of COPD. Patient is extremely morbidly obese. Apparently was found at home lying flat with a CPAP and a O2 sat of 88%. Upon arrival patient does not appear to be acutely short of breath and is on a nonrebreather speaking in full sentences with an O2 sat of 100. Patient has had his Covid vaccine back in October. Patient denies fever but states he has been sneezing a lot lately. Patient denies chest pain. Will do medical evaluation treat as needed. MD elicited complaint: shortness of breath Pertinent past history: COPD and asthma Timing: now resolved Severity: moderate Exacerbating factors: lying flat Relieving factors: oxygen and upright position Known history of: COPD and asthma Associated symptoms: Deny abdominal pain, chest pain, extremity pain, fever(s), lightheadedness, nausea, palpitations or vomiting Review of Systems General: Reports: 10 or more systems reviewed and unremarkable except in HPI and below Const: Denies: fever(s), chills, body aches or fatigue Eyes: Denies: change in vision or blurry vision ENMT: Denies: throat pain, hoarseness or mouth pain Card: Denies: chest pain, palpitations, irregular heart rhythm, edema, swelling of feet/ankles or lightheadedness Resp: Reports: dyspnea; Denies: productive cough, non-productive cough, wheezing or pain on inspiration GI: Denies: abdominal pain, nausea or vomiting : Denies: flank pain, dysuria, urinary frequency, urinary urgency or urinary hesitancy Musc: Denies: neck pain, back pain, extremity pain, extremity swelling, joint pain, joint swelling, joint redness, joint warmth or limited range of motion Skin/Breast: Denies: rash, pruritus, erythema or skin tenderness Neuro: Denies: headache(s), numbness in extremities or weakness in extremities Psych: Denies: anxiety or depression PFS ED PFSH: Medical History Atrial fibrillation Chronic anticoagulation Diabetes mellitus, type II GERD (gastroesophageal reflux disease) History of gastric ulcer with perforation Hypertension Morbid obesity with BMI of 50.0-59.9, adult Pneumonia Recurrent falls Surgical History History of esophagogastroduodenoscopy History of exploratory laparotomy for perforated gastric ulcer Family History Father Cancer lung Mother Asthma CAD (coronary artery disease) Sister Cerebral aneurysm Social History Smoking and tobacco status: former smoker Quit status (tobacco): has quit using tobacco Year quit tobacco: 1978 - PD x 7 Years Second hand smoke exposure: Yes Smoking risk assessment/counseling performed?: No Alcohol intake: current Alcohol intake frequency: few times a week Alcohol type: beer Counseling given: No Counseling given: No Lives independently: Yes Household members: family Marital status: Current occupational status: disabled Previous occupational history: history of working in [employer] History of recent travel: No Current gender identity: Male Physical Exam Const: COMMON NORMALS: no acute distress, average body habitus, patient orient ed x3, no limitations, healthy appearing, alert and well nourished HENMT: COMMON NORMALS: normocephalic, atraumatic, hearing grossly normal bilaterally, external ears normal, EAC's normal, TM's normal bilaterally, Normal external nose present, Normal nasal mucous membranes and turbinates present, moist oral mucous membranes, oropharynx normal, dentition normal and gingiva normal HEAD & SCALP: normocephalic and atraumatic NOSE: Normal external nose present and Normal nasal mucous membranes and turbinates present EXTERNAL EAR: Yes external ears normal EXTERNAL AUDITORY CANAL: EAC's normal TYMPANIC MEMBRANE: TM's normal bilaterally Neck/C-Spine: COMMON NORMALS: full ROM, no lymphadenopathy, supple, no meningeal signs, no JVD, Thyroid normal and No carotid bruits THYROID: Thyroid normal Chest: COMMONS NORMALS: normal inspection of the chest, normal palpation of entire chest wall, normal inspection of the breasts and normal palpation of the breasts Breast/axilla inspection: Yes normal inspection of the breasts BREAST/AXILLA PALPATION: Yes normal palpation of the breasts Resp: COMMON NORMALS: normal respiratory effort, No retractions, No use of accessory muscles, clear to auscultation bilaterally and percussion normal AUSCULTATION: clear to auscultation bilaterally PERCUSSION: percussion normal Cardio: COMMON NORMALS: no JVD, regular rate, regular rhythm, S1 normal heart sound present, S2 normal heart sound present, No gallops present (Cardio), No clicks present (Cardio), No murmurs present (Cardio), No rub (Cardio) and Peripheral pulses 2+ throughout RATE: regular rate RHYTHM: regular rhythm HEART SOUNDS: S1 normal heart sound present and S2 normal heart sound present PERIPHERAL PULSES: Peripheral pulses 2+ throughout GI: COMMON NORMALS: Normal to inspection, nondistended, normoactive bowel sounds present, Soft to palpation, non-tender, No hepatosplenomegaly present, no masses and no bruits PALPATION: Yes Soft to palpation and Yes No hepatosplenomegaly present : COMMON NORMALS: Yes no CVA tenderness BLADDER/KIDNEY EXAM: Yes no CVA tenderness Back/Pelvis: COMMON NORMALS: no CVA tenderness, thoracic and lumbar spine normal to inspection, no thoracic nor lumbar tenderness, thoraco-lumbar ROM normal and straight leg raise negative bilaterally Extremity: COMMON NORMALS: normal to inspection, full ROM, capillary refill normal, no joint enlargement, no clubbing, cyanosis or edema, no calf tenderness and no pedal edema Neuro: COMMON NORMALS: patient oriented x3 SENSORIUM/ORIENTATION: Yes alert MENINGEAL SIGNS: Yes no meningeal signs Course Reevaluation(s): Reevaluation #1: Patient is doing much better. O2 sat 93 to 95% on BiPAP. Patient is agreeable to admission to the hospital Time: 19:48 Consultations: Consultation #1: I did discuss at length with Dr. Rahman he is agreeable to admit the patient to the hospital for further evaluation and treatment for acute COPD exacerbation Time: 19:48 Vital Signs: Vital signs: Vital Signs Temperature 97.8 F 03/30/21 18:08 Pulse Rate 69 03/30/21 18:54 Respiratory Rate 16 03/30/21 18:31 Blood Pressure 157/77 03/30/21 18:08 Pulse Oximetry 93 03/30/21 18:54 MDM - SOB/Dyspnea MDM Narrative: Medical decision making narrative: This patient is a 65-year-old male that presents to the emergency department via EMS for acute shortness of breath. Patient has a long history of COPD. Patient is extremely morbidly obese. Apparently was found at home lying flat with a CPAP and a O2 sat of 88%. Upon arrival patient does not appear to be acutely short of breath and is on a nonrebreather speaking in full sentences with an O2 sat of 100. Patient has had his Covid vaccine back in October. Patient denies fever but states he has been sneezing a lot lately. Patient denies chest pain. Will do medical evaluation treat as needed. I did discuss at length with Dr. Rahman he is agreeable to admit the patient to the hospital for further evaluation and treatment for acute COPD exacerbation Medical Records: Attestation: I reviewed the patient's medical records. Lab Data: Attestation: I reviewed the patient's lab results. Labs: Lab Results 03/30/21 03/30/21 03/30/21 18:30 18:41 18:41 WBC 5.9 10^3/uL 10^3/ uL (4.0-10.0) RBC 3.30 10^6/uL L 10 ^6/uL (4.1-5.3) Hgb 9.6 g/dL L g/dL (11.7-16.6) Hct 32.4 % L % (42.0-52.0) MCV 98.2 fl H fl (80-94) MCH 29.1 pg pg (28.0-34.0) MCHC 29.6 g/dL L g/dL (30.0-36.0) RDW 15.3 % H % (12.1-15.1) Plt Count 263 10^3/cmm 10^3 /cmm (130-400) MPV 10.0 fL fL (7.4-10.4) Neut % (Auto) 60.4 % % Lymph % (Auto) 22.1 % % [place] % (Auto) 10.3 % % Eos % (Auto) 6.2 % % Baso % (Auto) 0.7 % % Neut # (Auto) 3.54 10^3/uL 10^3 /uL (1.8-7.7) Lymph # (Auto) 1.3 10^3/uL 10^3/ uL (0.8-4.8) [place] # (Auto) 0.6 10^3/uL 10^3/ uL (0.2-0.9) Eos # (Auto) 0.4 10^3/uL 10^3/ uL (0.0-0.8) Baso # (Auto) 0.0 10^3/uL 10^3/ uL (0.0-0.1) Nucleated RBC % (a uto) 0 % % Nucleated RBCs # 0.0 /100WBC /100W BC PT 26.30 SECONDS H S ECONDS (12.1-14.9) INR 2.36 H (0.8-1.2) APTT 38.8 SECONDS H SE CONDS (23.9-36.7) Specimen Type Arterial Sample Site Radial, right ABG pH 7.31 L (7.35-7.45) ABG pCO2 83.5 mmHg H* mmHg (35-45) ABG pO2 78.2 mmHg L mmHg (80.0-100.0) ABG HCO3 41.9 mmol/L H mmo l/L (22-26) ABG O2 Saturation 95.0 ABG Base Excess 12.9 mmol/L H mmo l/L (-2.0-2.0) Ronald Test Pos A-a O2 Gradient 6.5 mmHg mmHg (5-10) Hematocrit 31.0 % L % (42-52) Hgb O2 Saturation 92.8 % L % (95-100) Carboxyhemoglobin 1.6 %THgb %THgb (0.4-20.1) Methemoglobin 0.6 % % (0.4-1.5) Total Hemoglobin 10.1 g/dL L g/dL (14-18) Sodium 139.0 mmol/L mmol /L (131-143) Potassium 3.5 mmol/L mmol/L (3.5-5.0) Glucose 105.0 mg/dL mg/dL (70-115) Ionized Calcium 1.3 mmol/L mmol/L (1.1-1.4) O2 Delivery Device Nc O2 Liters/Min 3.0 % % FiO2 32.0 % % Paper Cone Machine Tender ID Amh Chloride Carbon Dioxide Anion Gap BUN Creatinine GFR Calculation Calculated Osmolal ity Lactic Acid Calcium Total Bilirubin AST ALT Alkaline Phosphata se Troponin T Baselin e NT-Pro-B Natriuret Pep Total Protein Albumin Globulin SARS-CoV-2 Ag (Rap id) 09/29/21 09/29/21 09/29/21 18:41 18:41 18:41 WBC RBC Hgb Hct MCV MCH MCHC RDW Plt Count MPV Neut % (Auto) Lymph % (Auto) [place] % (Auto) Eos % (Auto) Baso % (Auto) Neut # (Auto) Lymph # (Auto) [place] # (Auto) Eos # (Auto) Baso # (Auto) Nucleated RBC % (a uto) Nucleated RBCs # PT INR APTT Specimen Type Sample Site ABG pH ABG pCO2 ABG pO2 ABG HCO3 ABG O2 Saturation ABG Base Excess Ronald Test A-a O2 Gradient Hematocrit Hgb O2 Saturation Carboxyhemoglobin Methemoglobin Total Hemoglobin Sodium 136 mmol/L mmol/L (136-145) Potassium 3.6 mmol/L mmol/L (3.5-5.1) Glucose 100 mg/dL mg/dL (65-115) Ionized Calcium O2 Delivery Device O2 Liters/Min FiO2 Paper C[employer] Machine Tender ID Chloride 93 mmol/L L mmol/ L (98-107) Carbon Dioxide 39 mmol/L H mmol/ L (22-29) Anion Gap 7.6 (5-19) BUN 9 mg/dL mg/dL (8-23) Creatinine 0.4 mg/dL L mg/dL (0.7-1.2) GFR Calculation 217.3 mL/min H mL /min (90-130) Calculated Osmolal ity 281 mOsm/kg L mOs m/kg (285-295) Lactic Acid 0.7 mmol/L mmol/L (0.5-2.2) Calcium 9.2 mg/dL mg/dL (8.5-10.5) Total Bilirubin 0.5 mg/dL mg/dL (0.15-1.2) AST 28 U/L U/L (0-40) ALT 13 U/L U/L (0-41) Alkaline Phosphata se 83 IU/L IU/L (40-130) Troponin T Baselin e 16 ng/L H ng/L (0-15) NT-Pro-B Natriuret Pep 382 pg/mL H pg/mL (0-125) Total Protein 6.8 g/dL g/dL (6.6-8.7) Albumin 3.4 g/dL L g/dL (3.5-5.2) Globulin 3.4 g/dL g/dL (1.3-4.6) SARS-CoV-2 Ag (Rap id) 03/30/21 18:41 WBC RBC Hgb Hct MCV MCH MCHC RDW Plt Count MPV Neut % (Auto) Lymph % (Auto) [place] % (Auto) Eos % (Auto) Baso % (Auto) Neut # (Auto) Lymph # (Auto) [place] # (Auto) Eos # (Auto) Baso # (Auto) Nucleated RBC % (a uto) Nucleated RBCs # PT INR APTT Specimen Type Sample Site ABG pH ABG pCO2 ABG pO2 ABG HCO3 ABG O2 Saturation ABG Base Excess Ronald Test A-a O2 Gradient Hematocrit Hgb O2 Saturation Carboxyhemoglobin Methemoglobin Total Hemoglobin Sodium Potassium Glucose Ionized Calcium O2 Delivery Device O2 Liters/Min FiO2 Paper Cone Machine Tender ID Chloride Carbon Dioxide Anion Gap BUN Creatinine GFR Calculation Calculated Osmolal ity Lactic Acid Calcium Total Bilirubin AST ALT Alkaline Phosphata se Troponin T Baselin e NT-Pro-B Natriuret Pep Total Protein Albumin Globulin SARS-CoV-2 Ag (Rap id) Negative (Negative) Imaging Data^: CXR: Attestation: I personally reviewed and interpreted this imaging study as follows: Radiologist's impression: IMPRESSION: 1. Suspected small volume right pleural effusion. 2. Silhouetting of the right hemidiaphragm which could be secondary to atelectasis, focal edema, and/or pneumonia. 3. Cardiomegaly. EKG Data^: EKG 1: Attestation: I personally reviewed and interpreted this EKG as follows: EKG Interpretation Date: 03/30/21 EKG interpretation time: 18:47 Prior EKG tracings: available for review Interpretation: Atrial fibrillation with a heart rate of 82 nonspecific EKG changes ABG Data^: ABG Interpretation 1: ABG results: pH is 7.30P [id number] Attestation: I personally reviewed and interpreted this ABG as follows: Interpretation: Respiratory acidosis with CO2 retention Discharge Plan Discharge Patient Disposition: Admitted As Inpatient Clinical Impression: Acute exacerbation of chronic obstructive airways disease, Obesity, On home oxygen therapy, Morbid obesity with BMI of 50.0-59.9, adult Condition: Stable Prescriptions: No Action omeprazole 40 mg Capsule,Delayed Release(Dr/Ec) 40 mg PO DAILY RF: 0 furosemide 40 mg Tablet 40 mg PO BID RF: 0 hydrocodone-acetaminophen 10-325 mg tablet 1 tab PO Q6H PRN (Reason: Pain) RF: 0 tamsulosin 0.4 mg Capsule 0.4 mg PO DAILY RF: 0 paroxetine HCl 20 mg Tablet 20 mg PO DAILY RF: 0 warfarin 5 mg Tablet See Rx Instructions .ROUTE .COMPLEX RF: 0 aspirin 81 mg Tablet,Chewable 81 mg PO DAILY RF: 0 potassium chloride 20 mEq Tablet Extended Release 20 meq PO DAILY RF: 0 sotalol 80 mg Tablet 60 mg PO BID@0900,2100 Qty: 60 RF: 0 lisinopril 2.5 mg tablet 2.5 mg PO DAILY Qty: 30 RF: 0 metformin 500 mg tablet 500 mg PO DAILY@0500 RF: 0 Referrals: Robert Mustafa [Primary Care Provider] - Coding Level of Care Code ED Merchandise For Resale Purchasing Agent for Chg Fwd Exam Comprehensive
[2021-03-30] MEDS: ipratropium-albuterol 3 mL Neb INHALATION (18:29)
[2021-03-30 18:41] LABS: ABG PH Result 7.31 (7.35-7.45); Alveolar-Arterial Oxygen Gradi 6.5 mmHg (5-10); Base Excess ABG 12.9 mmol/L (-2.0-2.0); Blood Gas Allen Test Pos; Blood Gas Operator Identificat AMH; Blood Gas Sample Site Radial, right; Blood Gas Sample Type Arterial; Carboxyhemoglobin 1.6 %THgb (0.4-20.1); HCO3 ABG 41.9 mmol/L (22-26); HGB O2 Sat 92.8 % (95-100); Ionized Calcium Level - ABG 1.3 mmol/L (1.1-1.4); Methemoglobin 0.6 % (0.4-1.5); Oxygen Device NC; PO2 ABG 78.2 mmHg (80.0-100.0); Potassium Level - ABG 3.5 mmol/L (3.5-5.0); Total Hemoglobin 10.1 g/dL (14-18)
[2021-03-30 18:42] LABS: ABG PCO2 83.5 mmHg (35-45)
[2021-03-30 18:50] LABS: Basophils % 0.7 %; Eosinophils # 0.4 10^3/uL (0.0-0.8); Eosinophils % 6.2 %; Hematocrit 32.4 % (42.0-52.0); Hemoglobin 9.6 g/dL (11.7-16.6); Lymphocytes # 1.3 10^3/uL (0.8-4.8); Lymphocytes % 22.1 %; Mean Corpuscular HGB Conc 29.6 g/dL (30.0-36.0); Mean Corpuscular Hemoglobin 29.1 pg (28.0-34.0); Mean Corpuscular Volume 98.2 fl (80-94); Monocytes # 0.6 10^3/uL (0.2-0.9); Monocytes % 10.3 %; Neutrophils # 3.54 10^3/uL (1.8-7.7); Neutrophils % 60.4 %; Nucleated Red Blood Cells % 0 %; Platelet Count 263 10^3/cmm (130-400); Red Cell Distribution Width 15.3 % (12.1-15.1); White Blood Count 5.9 10^3/uL (4.0-10.0)
[2021-03-30 19:07] LABS: Troponin(5th) Baseline 16 ng/L (0-15)
[2021-03-30 19:10] LABS: Lactic Sepsis W/Reflex 0.7 mmol/L (0.5-2.2)
[2021-03-30 19:17] LABS: SARS Covid-2 Antigen Negative (Negative)
[2021-03-30 19:27] LABS: INR 2.36 (0.8-1.2)
[2021-03-30 19:28] LABS: Partial Thromboplastin Time 38.8 SECONDS (23.9-36.7)
[2021-03-30 19:34] LABS: Alanine Aminotransferase 13 U/L (0-41); Albumin Level 3.4 g/dL (3.5-5.2); Alkaline Phosphatase 83 IU/L (40-130); Anion Gap 7.6 (5-19); Aspartate Amino Transferase 28 U/L (0-40); Blood Urea Nitrogen 9 mg/dL (8-23); Calcium 9.2 mg/dL (8.5-10.5); Carbon Dioxide 39 mmol/L (22-29); Chloride 93 mmol/L (98-107); Globulin 3.4 g/dL (1.3-4.6); Glomerular Filtration Rate 217.3 mL/min (90-130); Glucose 100 mg/dL (65-115); NT Pro B Type Natriuretic Pept 382 pg/mL (0-125); Osmolality Calculated 281 mOsm/kg (285-295); Potassium 3.6 mmol/L (3.5-5.1); Sodium 136 mmol/L (136-145); Total Bilirubin 0.5 mg/dL (0.15-1.2); Total Protein 6.8 g/dL (6.6-8.7)
--- NOTE | 2021-03-30 19:55 | ECG_ITS ---
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 Measurements Intervals [place] Rate: 75 P: 26 W[place]: 201 QRS: -27 QRSD: 126 T: 69 QT: 401 QTc: 449 Interpretive Statements SINUS RHYTHM WITH SINUS ARRHYTHMIA POSSIBLE LATERAL MYOCARDIAL INFARCTION , PROBABLY OLD [30 ms Q WAVE IN I/aVL/V5/V6] Compared to ECG 03/30/2021 18:47:12 No significant changes Electronically Signed On 04-01-2021 7:07:46 CDT by Nuris Zuniga M.D. [id number]
--- NOTE | 2021-03-30 20:37 | PC.NURSE ---
URINE COLLECTION COMPLETED BY THIS NURSE WITH THE HELP OF SLY Zamora RN, WITH STRAIGHT CATH. PATIENT TOLERATED WELL. 300 ML DRAINED FROM BLADDER. PATIENT PLACED ON AIR LIFT MATTRESS. PATIENT IN BED, CALL LIGHT IN REACH.
[2021-03-30 20:46] LABS: Add Urine Microscopic? YES; Bilirubin Urine Neg (Negative); Blood Urine 2+ (Negative); Glucose Urine UA Norm (Normal); Ketones Urine Negative (Negative); Leukocyte Esterase Urine 2+ (Negative); Nitrate Urine Positive (Negative); Protein Urine Neg (Negative); Urine Appearance Cloudy (CLEAR); Urine Color Dark Yellow (Yellow); Urobilinogen Urine Norm (Negative); pH Urine 6.5 (5-7)
[2021-03-30 21:00] LABS: RBC Urine 0-4 /hpf (0-2)
[2021-03-30 21:01] LABS: Add Urine Culture? Yes; Bacteria Urine 4+ /hpf; Mucus Urine 1+ /hpf; Squamous Epithelial Cell Urine 0-4 /hpf (0-5); WBC Urine 40-55 /hpf (0-5)
[2021-03-30 21:15] LABS: Troponin 5 2HR 14.69 ng/L (0-15)
[2021-03-30 21:18] LABS: Troponin 5 2HR Delta -1.31 ABS# (0-10)
--- NOTE | 2021-03-30 22:18 | PC.NURSE ---
Admit Note Patient admitted to CSU room 104 from ED via stretcher. Patient transferred from stretcher to bed using sliding air mattress. Patient tolerated well. Patient c/o pain 01/08 for chronic back pain. Patient requesting pain medication he takes at home. Med rec completed. Informed Dr Rahman and currently waiting for response. Covering service notified. Patient presents with increased work of breathing requiring bipap at this time.. Orders reviewed & will continue to monitor. Patient and/or sales representative livestock oriented to environment, equipment, and informed of the following as found in the admission booklet: patient rights & responsibilities, visitor policy, hand and respiratory hygiene practice. Other education includes: admission, home medications, bipap, telemetry and oxygen safety. Patient verbalized complete understanding.
--- NOTE | 2021-03-30 23:55 | ECG_ITS ---
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 Measurements Intervals [place] Rate: 61 P: 28 NE: 219 QRS: -27 QRSD: 122 T: 66 QT: 406 QTc: 410 Interpretive Statements SINUS RHYTHM WITH FIRST DEGREE AV BLOCK WITH OCCASIONAL SUPRAVENTRICULAR PREMATURE COMPLEXES POSSIBLE LATERAL MYOCARDIAL INFARCTION , PROBABLY OLD [30 ms Q WAVE IN I/aVL/V5/V6] Compared to ECG 03/30/2021 22:16:59 First degree AV block now present Sinus arrhythmia no longer present Myocardial infarct finding still present Electronically Signed On 04-01-2021 7:07:40 CDT by Nuris Zuniga M.D. [id number]
[2021-03-31] VITALS (29 sets, daily range): BP systolic 111–177; BP diastolic 67–89; PULSE 58–89; RESP 4–25; TEMP 36.8–36.9; O2SAT 91–99
--- NOTE | 2021-03-31 00:03 | PM.HP ---
Providers/Chief Complaint Admitting Physician: Emmie Rahman Primary Care Provider: Robert Mustafa Chief Complaint: SOB, COPD History of Present Illness 65 year old male with a past medical history of chronic hypoxic hypercarbia respiratory failure, on 2 to 3 L nasal cannula, obesity hypoventilation syndrome on AVAPS, morbid obesity, atrial fibrillation on Coumadin, who presents to [facility] due to complaints of shortness of breath. Patient was very drowsy at the time of my evaluation and not able the pride med history. Upon arrival to hospital patient's laboratory workup has shown a WBC of 5.9 , hemoglobin of 9.6, hematocrit 32.4 and a platelet count of 263 INR of 2.36. Arterial blood gases showed a pH of 7.31, pCO2 of 83.5, PO2 of 78.2 and a bicarb of 41.9. Sodium 136, potassium 3.6, chloride 93, bicarb 39 , BUN 9 and creatinine of 0.4 initial delta troponin T of -1.31 and subsequent of 0.68 proBNP of 382 urinalysis showed positive nitrite , 40 to 55 wbc's. And 2+ leukocyte esterase. In Er patient was given a duoneb treatment and placed on bipap . Of not covid 19 was negative. Imaging studies included chest x-ray which showed a small volume of right pleural effusion and silhouetting of the right hemidiaphragm which could be secondary to atelectasis and/or pneumonia. Addition cardiomegaly was noted. Review of Systems General: Reports: ROS unobtainable due to medical condition Medications/Allergies Home Medications Medication Instructions Recorded Confirmed Last Taken Type omeprazole 40 mg PO DAILY 10/17/20 03/30/21 03/30/21 08:00 History aspirin 81 mg PO DAILY 12/31/20 03/30/21 03/30/21 08:00 History furosemide 40 mg PO DAILY 12/31/20 03/30/21 03/30/21 08:00 History hydrocodone-acetaminophen 1 tab PO Q6H PRN 12/31/20 03/30/21 03/30/21 08:00 History paroxetine HCl 20 mg PO DAILY 12/31/20 03/30/21 03/30/21 08:00 History tamsulosin 0.4 mg PO DAILY 12/31/20 03/30/21 03/30/21 08:00 History lisinopril 2.5 mg PO DAILY #30 tab 01/06/21 03/30/21 03/30/21 08:00 Rx sotalol 60 mg PO DAILY 03/30/21 03/30/21 03/30/21 08:00 History Allergies Allergy/AdvReac Type Severity Reaction Status Date / Time tape Allergy Unknown Uncoded 03/30/21 18:00 PFSH Acute PFSH: Medical History Atrial fibrillation Chronic anticoagulation Diabetes mellitus, type II GERD (gastroesophageal reflux disease) History of gastric ulcer with perforation Hypertension Morbid obesity with BMI of 50.0-59.9, adult Pneumonia Recurrent falls Surgical History History of esophagogastroduodenoscopy History of exploratory laparotomy for perforated gastric ulcer Family History Father Cancer lung Mother Asthma CAD (coronary artery disease) Sister Cerebral aneurysm Social History Smoking and tobacco status: former smoker Quit status (tobacco): has quit using tobacco Year quit tobacco: 1978 - PD x 7 Years Second hand smoke exposure: Yes Smoking risk assessment/counseling performed?: No Alcohol intake: current Alcohol intake frequency: few times a week Alcohol type: beer Counseling given: No Counseling given: No Lives independently: Yes Household members: family Marital status: Current occupational status: disabled Previous occupational history: history of working in [employer] History of recent travel: No Current gender identity: Male Vitals/I&O/Wt Last Vital Signs Temp 97.8 F 03/30/21 18:08 Pulse 70 03/31/21 03:49 Resp 21 H 03/31/21 03:29 BP 158/88 03/31/21 03:29 Pulse Ox 94 03/31/21 03:29 Weight last 48 hrs Weight 219.403 kg Weight 197.313 kg Physical Exam Narrative: EXAM NARRATIVE: General : Sleepy on BIPAP HEENT: Grossly unremarkable CVS; NSR Chest : non-labored respiraition Abd SOft NT, ND Ext - Bilateral LE edema Data : 03/30/21 18:41 03/30/21 18:41 Micro: Microbiology 03/30/21 18:41 Blood Culture - Preliminary Blood SPECIMEN COLLECTED 03/30/21 18:11 Blood Culture - Preliminary Blood SPECIMEN COLLECTED A&P Assessment and plan (1) Acute exacerbation of chronic obstructive airways disease: Status: Acute Additional A&P Information Acute on chronic hypoxemic / hypercarbic respiratory failure Etiology multifactorial ? Fluid overload, COPD exacerbation with underlying OHS Duoneb q6hr Supplemental o2 as needed ? on 3L ch. At home Wean Bipap in am Consider steroids if no improvement Repeat ABG if worsening Consider pulmonary consult Acute on chronic stage 2 diastolic dysfunction ECHO 07/2020 noted ? pEF Monitor daily weight Strict I&O Low na Diet Lasix 40 mg IV BID Daily BMP Suspected UTI UA positive for leuk esterase, nitrite Follow up on blood culture and urine culture Rocephin 2g IV daily Atrial Fibrillation with NVR Continue sotalol 60 mg ? Previously on BID however need to verify dose Was previously noted to have sinus akira Verify if currently on coumadin ? not noted in med rec Peptic Ulcer disease Protonix 40 mg PO daily DVT ppx - INR theraputic - Verify coumadin dosing Attestations Medical Necessity Statement*: Require over2 midnight stay in hospital for evaluation and treatment Time Spent in Patient Care: Greater than 35 minutes (>than 50% of time spent in counselling and/or direct pt care on unit). Coding Level of Care Code Acute Warehouse Guard for Daisy Hdz Diagnoses Acute exacerbation of chronic obstructive airways disease J44.1
[2021-03-31 01:03] LABS: Troponin 5 6HR 15.32 ng/L (0-15)
[2021-03-31 01:14] LABS: Troponin 5 6HR Delta -0.68 ng/L (0-12)
[2021-03-31] MEDS: HYDROcodone-acetaminophen 10-325 mg Tablet 1 TAB PO ×4 (01:45→20:51)
--- NOTE | 2021-03-31 02:26 | PC.NURSE ---
Patient had large episode of incontinence. Clear yellow with strong odor present. Skin to back and sacrum without evidence of breakdown. Did note patient to have yeasty patches beneath panis.
[2021-03-31] MEDS: ipratropium-albuterol 3 mL Neb INHALATION ×4 (03:21→20:30)
[2021-03-31] MEDS: FUROsemide 10 mg/mL SDV 4mL 40 MG IVP ×2 (05:47→18:08)
[2021-03-31] MEDS: cefTRIAXone 2,000 MG in sodium chloride 0.9% (plus) 50 ML 100 MG IV (05:47)
--- NOTE | 2021-03-31 06:11 | PC.NURSE ---
Shift Note Frequent safety and comfort rounds continue. Orders and/or nursing care completed as indicated. Patient monitored for response to intervention and treatment(s). Education provided includes Lasix and Rocephin. Patient verbalized complete understanding. Medications administered as ordered. Willingham catheter placed as documented. Patient tolerated well. Denies pain presently. No distress observed. Will continue to monitor.
--- NOTE | 2021-03-31 07:49 | PC.NURSE ---
Pt lying in bed resting with eyes closed. Pt resp even and non-labored no distress noted. Pt had no s/s of pain or discomfort at the present time. Call light in reach. Will continue to monitor.
[2021-03-31] MEDS: tamsulosin 0.4 mg Capsule PO (09:25)
[2021-03-31] MEDS: aspirin 81 mg Chew Tablet PO (09:25)
[2021-03-31] MEDS: sotalol 80 mg Tablet 60 MG PO (09:25)
[2021-03-31] MEDS: PARoxetine 20 mg Tablet PO (09:26)
[2021-03-31] MEDS: pantoprazole DR 40 mg Tablet PO (09:26)
--- NOTE | 2021-03-31 11:09 | PC.CHAP ---
Pastoral Care Encounter/Spiritual Assessment Type of Contact [] Declined survey rodman visit [] Patient/Family/Request visit [] Outpatient visit [] Follow-up visit [] Physician referral [] Code/Alert [x] Routine visit [] Staff referral [] Actively dying [] Patient sleeping [] Family support [] [] Out of room [] Palliative care [] [x] Receiving care in room [] Pre-surgical visit [] Trauma [] Long length of stay [] ICU visit [] Other: Relational/Emotional Strength [x] Patient feels connected with others/family/visitors/staff [] Distress [] Loneliness/isolation [] Abandonment Spirituality of Patient [x] Person of Liz [] Attends Rastafarian of their Liz [x] Believes in Prayer [] Reads Bible or Christianity materials [] There are Spiritual issues to be addressed Planetarium Sky Show Technician Interventions [x] Prayer [x] Active listening [x] Non-anxious presence [x] Spiritual/emotional support [] Crisis/trauma care [x] Spiritual counseling [] Bereavement support [] Provided bereavement packet [] Provided Bible/devotional materials [] Provided toy/stuffed animal, coloring book to patient or family member [] Provided Communion [] Anointing/[place] [] Salvation [x] Completed spiritual assessment [] Other: Impact on Illness or Injury [] Angry [] Fearful [x] Anxious [] Often cries [] Exhaustion [] Unable to work [] Unable to attend spiritism [] Unable to walk/stand [] Unable to read [] Unable to drive [] Unable to eat/drink [] Unable to sleep [] Unable to be with family [] Patient intubated [] Other: Summary life suppors doctors and staff care Time spent with patient 5 mins
--- NOTE | 2021-03-31 11:33 | PM.PN ---
Subjective Subjective: Interval history: Patient was seen and examined this morning, continues to be on BiPAP, states that he wants to sleep, as he feels tired. Medications: Reviewed: Yes Vitals/I&O/Wt Last Vital Signs Temp 98.4 F 03/31/21 11:11 Pulse 58 L 03/31/21 11:11 Resp 16 03/31/21 11:11 BP 144/77 03/31/21 11:11 Pulse Ox 98 03/31/21 11:11 03/30/21 03/31/21 03/31/21 22:59 06:59 14:59 Intake Total 50 / 50 0 / 0 Balance 50 / 50 0 / 0 Weight last 48 hrs Weight 219.403 kg Weight 197.313 kg Physical Exam Const: COMMON NORMALS: patient oriented x3 HENMT: COMMON NORMALS: normocephalic and atraumatic HEAD & SCALP: normocephalic and atraumatic Chest: CHEST: Yes Symmetrical chest wall rise Resp: OTHER: Diminished air entry bilaterally Cardio: COMMON NORMALS: regular rate, regular rhythm, S1 normal heart sound present, S2 normal heart sound present, No gallops present (Cardio), No murmurs present (Cardio), No rub (Cardio) and Peripheral pulses 2+ throughout RATE: regular rate RHYTHM: regular rhythm HEART SOUNDS: S1 normal heart sound present and S2 normal heart sound present PERIPHERAL PULSES: Peripheral pulses 2+ throughout GI: COMMON NORMALS: Normal to inspection, nondistended, normoactive bowel sounds present, Soft to palpation, non-tender, No hepatosplenomegaly present and no masses AUSCULTATION: Yes normoactive bowel sounds PALPATION: Yes Soft to palpation and Yes No hepatosplenomegaly present RECTAL EXAM: Yes deferred Extremity: NARRATIVE EXTREMITY EXAM: 2+ bilateral pitting edema present Neuro: COMMON NORMALS: patient oriented x3 Urinary Catheter Management^: Willingham: Cath Placed During This Visit: yes Reason for Continuing Indwelling Catheter: Accurate Measurement of Urinary Output in Critically Ill Patients Urinary Catheter Date of Insertion: 03/31/21 Urinary Catheter Time of Insertion: 05:11 Data : 03/30/21 18:41 03/30/21 18:41 Micro: Microbiology 03/30/21 18:41 Blood Culture - Preliminary Blood SPECIMEN COLLECTED 03/30/21 18:11 Blood Culture - Preliminary Blood SPECIMEN COLLECTED A&P Assessment and plan (1) Respiratory failure with hypoxia and hypercapnia: Acute on chronic hypoxic hypercapnic respiratory failure secondary to acute COPD exacerbation and decompensated heart failure with preserved ejection fraction: DuoNeb Supplemental oxygen as needed BiPAP support Ceftriaxone 1 g IV daily Azithromycin 500 mg IV daily We will consider steroids if the patient fails to improve. Status: Acute (2) Acute exacerbation of chronic obstructive airways disease: Plan is 1 Status: Acute (3) Diastolic heart failure: Decompensated heart failure with preserved ejection fraction. Lasix 40 mg IV twice daily Intake output charting Daily weight k>4, Mg>2 Status: Acute (4) Atrial fibrillation: Currently normal sinus rhythm. Sotalol 60 mg p.o. daily Continue telemetry monitoring Status: Acute Qualifiers: Atrial fibrillation type: longstanding persistent Qualified Code(s): I48.11 - Longstanding persistent atrial fibrillation (5) Diabetes mellitus, type II: LDSSI Monitor fingerstick glucose Status: Acute Qualifiers: Diabetes mellitus senior living insulin use: with local intermodal truck driver use Diabetes mellitus complication status: without complication Qualified Code(s): E11.9 - Type 2 diabetes mellitus without complications; Z79.4 - termite helper (current) use of insulin (6) Morbid obesity with BMI of 50.0-59.9, adult: Status: Acute (7) Cor pulmonale: Status: Acute (8) Hypertension: Status: Acute Qualifiers: Hypertension type: essential hypertension Qualified Code(s): I10 - Essential (primary) hypertension Additional A&P Information CODE STATUS:Full code DVT prophylaxis: Lovenox 40mg subcu daily Attestations Medical Necessity Statement*: Patient needs to be in hospital for management of hypercapnic respiratory failure. Coding Level of Care Code Acute Technology Resource Teacher [facility] Diagnoses Respiratory failure with hypoxia and hypercapnia J96.91; J96.92 Acute exacerbation of chronic obstructive airways disease J44.1 Diastolic heart failure I50.30 Atrial fibrillation I48.11 Atrial fibrillation type: longstanding persistent Diabetes mellitus, type II E11.9; Z79.4 Diabetes mellitus senior living insulin use: with local intermodal truck driver use Diabetes mellitus complication status: without complication Morbid obesity with BMI of 50.0-59.9, adult E66.01; Z68.43 Cor pulmonale I27.81 Hypertension I10 Hypertension type: essential hypertension
[2021-03-31] MEDS: enoxaparin 40 mg/0.4 mL Syringe SUBCUT (13:31)
[2021-03-31] MEDS: azithromycin 500 MG in sodium chloride 0.9% 250 ML 250 MG IV (13:32)
[2021-03-31 18:14] LABS: Glucose Point of Care 88 mg/dL (70-110)
--- NOTE | 2021-03-31 20:06 | PC.NURSE ---
Received report from ORIN Her. Patient sitting on edge of bed. Patient standing with walker frequently. Tolerating well. Noted patient heart rate increases with exertion and recovers back to 80s with rest. Will provide patient with bed bath this evening before sleep per patient request. Patient denies pain or other needs presently. No distress observed. Will continue to monitor.
[2021-03-31 20:20] LABS: Glucose Point of Care 146 mg/dL (70-110)
[2021-03-31] MEDS: nystatin powder 15 gm Btl 1 APPLIC TOPICAL (21:27)
[2021-04-01] VITALS (12 sets, daily range): BP systolic 106–149; BP diastolic 78–113; PULSE 74–108; RESP 17–30; TEMP 36.7–36.8; O2SAT 90–97
[2021-04-01] MEDS: diclofenac 1% Topical Gel 100 gm 1 APPLIC TOPICAL ×3 (00:23→13:13)
[2021-04-01] MEDS: ipratropium-albuterol 3 mL Neb INHALATION ×3 (02:05→15:16)
[2021-04-01] MEDS: FUROsemide 10 mg/mL SDV 4mL 40 MG IVP (02:57)
[2021-04-01] MEDS: cefTRIAXone 2,000 MG in sodium chloride 0.9% (plus) 50 ML 100 MG IV (02:57)
[2021-04-01] MEDS: HYDROcodone-acetaminophen 10-325 mg Tablet 1 TAB PO ×3 (02:57→16:03)
[2021-04-01 03:34] LABS: Basophils % 0.5 %; Eosinophils # 0.4 10^3/uL (0.0-0.8); Hematocrit 34.3 % (42.0-52.0); Lymphocytes # 1.5 10^3/uL (0.8-4.8); Lymphocytes % 24.7 %; Mean Corpuscular HGB Conc 29.2 g/dL (30.0-36.0); Mean Corpuscular Hemoglobin 29.1 pg (28.0-34.0); Mean Corpuscular Volume 99.7 fl (80-94); Mean Platelet Volume 10.1 fL (7.4-10.4); Monocytes # 0.6 10^3/uL (0.2-0.9); Monocytes % 10.2 %; Neutrophils # 3.62 10^3/uL (1.8-7.7); Neutrophils % 58.3 %; Nucleated Red Blood Cells % 0 %; Platelet Count 250 10^3/cmm (130-400); Red Blood Count 3.44 10^6/uL (4.1-5.3); Red Cell Distribution Width 15.4 % (12.1-15.1); White Blood Count 6.2 10^3/uL (4.0-10.0)
[2021-04-01 03:55] LABS: Chol HDL Ratio 3.22 mg/dL (1.0-5.00); Cholesterol 145 mg/dL (0-200); HDL Cholesterol 45 mg/dL (60-100); LDL Cholesterol Calculated 84 mg/dL (50-129); LDL HDL Ratio 1.87 RATIO (0.00-3.22); Triglycerides 81 mg/dL (0-150)
[2021-04-01 03:59] LABS: INR 2.38 (0.8-1.2); Procalcitonin 0.08 ng/mL (0-0.5)
[2021-04-01 04:08] LABS: Anion Gap 9.6 (5-19); Blood Urea Nitrogen 12 mg/dL (8-23); Calcium 9.1 mg/dL (8.5-10.5); Carbon Dioxide 37 mmol/L (22-29); Chloride 93 mmol/L (98-107); Glomerular Filtration Rate 167.9 mL/min (90-130); Glucose 90 mg/dL (65-115); Magnesium 1.7 mg/dL (1.7-2.3); Osmolality Calculated 281 mOsm/kg (285-295); Potassium 3.6 mmol/L (3.5-5.1); Sodium 136 mmol/L (136-145); Thyroid Stimulating Hormone 2.92 uIU/mL (0.27-4.20)
--- NOTE | 2021-04-01 05:32 | PC.NURSE ---
Shift Note Frequent safety and comfort rounds continue. Orders and/or nursing care completed as indicated. Patient monitored for response to intervention and treatment(s). Education provided includes Lasix and Rocephin. Patient verbalized complete understanding. Patient had a restless night. Did not sleep much. Patient sat up to edge of bed most of the night. C/o chronic back pain exacerbated by lying in bed. Walker at bedside which patient uses to stand frequently. Patient had bed bath last night at shift change as documented. Patient reports feeling better and would like to go home today. Patient provided snacks through out he night. No distress observed. Will continue to monitor.
[2021-04-01 06:24] LABS: Glucose Point of Care 130 mg/dL (70-110)
[2021-04-01] MEDS: aspirin 81 mg Chew Tablet PO (08:27)
[2021-04-01] MEDS: tamsulosin 0.4 mg Capsule PO (08:27)
[2021-04-01] MEDS: sotalol 80 mg Tablet 60 MG PO (08:27)
[2021-04-01] MEDS: pantoprazole DR 40 mg Tablet PO (08:27)
[2021-04-01] MEDS: PARoxetine 20 mg Tablet PO (08:27)
[2021-04-01 12:06] LABS: Glucose Point of Care 101 mg/dL (70-110)
[2021-04-01] MEDS: enoxaparin 40 mg/0.4 mL Syringe SUBCUT (13:13)
[2021-04-01] MEDS: azithromycin 500 MG in sodium chloride 0.9% 250 ML 250 MG IV (13:13)
--- NOTE | 2021-04-01 14:21 | PC.CHAP ---
Pastoral Care Encounter/Spiritual Assessment Type of Contact [] Declined nuclear technologist visit [] Patient/Family/Request visit [] Outpatient visit [] Follow-up visit [] Physician referral [] Code/Alert [XX] Routine visit [] Staff referral [] Actively dying [] Patient sleeping [] Family support [] [] Out of room [] Palliative care [] [] Receiving care in room [] Pre-surgical visit [] Trauma [] Long length of stay [] ICU visit [] Other: Relational/Emotional Strength [XX] Patient feels connected with others/family/visitors/staff [] Distress [] Loneliness/isolation [] Abandonment Spirituality of Patient [xx] Person of Liz [] Attends Baptism of their Liz [xx] Believes in Prayer [xx] Reads Bible or Hoahaoism materials [] There are Spiritual issues to be addressed Senior Patrol Agent Interventions [xx] Prayer [xx] Active listening [xx] Non-anxious presence [] Spiritual/emotional support [] Crisis/trauma care [] Spiritual counseling [] Bereavement support [] Provided bereavement packet [xx] Provided Bible/devotional materials [] Provided toy/stuffed animal, coloring book to patient or family member [] Provided Communion [] Anointing/[place] [] Salvation [xx] Completed spiritual assessment [] Other: Impact on Illness or Injury [] Angry [] Fearful [] Anxious [] Often cries [] Exhaustion [] Unable to work [] Unable to attend mandaeism [] Unable to walk/stand [] Unable to read [] Unable to drive [] Unable to eat/drink [] Unable to sleep [] Unable to be with family [] Patient intubated [] Other: Summary Patient was pleasant to talk with. He feels better today. He expects a visitor for the afternoon and is looking forward to the visit. Time spent with patient 7 minutes
--- NOTE | 2021-04-01 15:29 | P.DS_ITS ---
Discharge Providers Date of Admission: 03/30/21 19:50 Date of Discharge: April 01, 2021 Attending Provider at Admission: Emmie Rahman Attending Provider at Discharge: Bertrand Galicia MD Primary Care Provider: Robert Mustafa Diagnoses at Discharge Discharge Diagnosis (1) Respiratory failure with hypoxia and hypercapnia: Status: Resolved (2) Acute exacerbation of chronic obstructive airways disease: Status: Resolved (3) Diastolic heart failure: Status: Acute (4) Atrial fibrillation: Status: Acute Qualifiers: Atrial fibrillation type: longstanding persistent Qualified Code(s): I48.11 - Longstanding persistent atrial fibrillation (5) Diabetes mellitus, type II: Status: Acute Qualifiers: Diabetes mellitus nursing home insulin use: with terminal block assembler use Diabetes mellitus complication status: without complication Qualified Code(s): E11.9 - Type 2 diabetes mellitus without complications; Z79.4 - correction (current) use of insulin (6) Morbid obesity with BMI of 50.0-59.9, adult: Status: Acute (7) Cor pulmonale: Status: Acute (8) Hypertension: Status: Acute Qualifiers: Hypertension type: essential hypertension Qualified Code(s): I10 - Essential (primary) hypertension Reason for Visit Reason for Visit: SOB, COPD Hospital Course Hospital Course HPI Done By past medical history of chronic hypoxic hypercarbia respiratory failure, on 2 to 3 L nasal cannula, obesity hypoventilation syndrome on AVAPS, morbid obesity, atrial fibrillation on Coumadin, who presents to [facility] due to complaints of shortness of breath. Patient was very drowsy at the time of my evaluation and not able the pride med history. Upon arrival to hospital patient's laboratory workup has shown a WBC of 5.9 , hemoglobin of 9.6, hematocrit 32.4 and a platelet count of 263 INR of 2.36. Arterial blood gases showed a pH of 7.31, pCO2 of 83.5, PO2 of 78.2 and a bicarb of 41.9. Sodium 136, potassium 3.6, chloride 93, bicarb 39 , BUN 9 and creatinine of 0.4 initial delta troponin T of -1.31 and subsequent of 0.68 proBNP of 382 urinalysis showed positive nitrite , 40 to 55 wbc's. And 2+ leukocyte esterase. In Er patient was given a duoneb treatment and placed on bipap . Of not covid 19 was negative. Imaging studies included chest x-ray which showed a small volume of right pleural effusion and silhouetting of the right hemidiaphragm which could be secondary to atelectasis and/or pneumonia. Addition cardiomegaly was noted. He was admitted for the management of acute on chronic hypercapnic hypoxic respiratory failure: Secondary to COPD exacerbation, decompensated heart failure with preserved ejection fraction, as well as underlying obesity hypoventilation syndrome, he was kept on BiPAP IV , diuresis, nebs, responded well to the above medical management, at the time of discharge he was at his baseline respiratory status, requiring 3 L of oxygen via nasal cannula, he has been advised to use AVAPS consistently. With respect to his heart failure with preserved ejection fraction, he responded well to IV diuresis, shortness of breath improved a lot. Patient was also managed for UTI was on broad-spectrum antibiotic, urine culture grew gram-negative eugene pending sensitivity. Patient has been discharged on levofloxacin p.o. 500 daily for additional 5 days. Patient preferred to see a it audit manager here at [facility], cardiology appointment has been made. He will continue to follow as outpatient. Patient responded well to the above medical management and is being discharged in stable condition. Physical Exam Const: COMMON NORMALS: patient oriented x3 HENMT: COMMON NORMALS: normocephalic and atraumatic HEAD & SCALP: normocephalic and atraumatic Resp: COMMON NORMALS: clear to auscultation bilaterally AUSCULTATION: clear to auscultation bilaterally Cardio: COMMON NORMALS: regular rate, regular rhythm, S1 normal heart sound present, S2 normal heart sound present, No gallops present (Cardio), No murmurs present (Cardio), No rub (Cardio) and Peripheral pulses 2+ throughout RATE: regular rate RHYTHM: regular rhythm HEART SOUNDS: S1 normal heart sound present and S2 normal heart sound present PERIPHERAL PULSES: Peripheral pulses 2+ throughout GI: COMMON NORMALS: Normal to inspection, nondistended, normoactive bowel sounds present, Soft to palpation, non-tender, No hepatosplenomegaly present and no masses AUSCULTATION: Yes normoactive bowel sounds PALPATION: Yes Soft to palpation and Yes No hepatosplenomegaly present RECTAL EXAM: Yes deferred Neuro: COMMON NORMALS: patient oriented x3 Urinary Catheter Management^: Willingham: Cath Placed During This Visit: yes, but has since been removed by the nurse Reason for Continuing Indwelling Catheter: Acute Urinary Retention or Obstruction Urinary Catheter Date of Insertion: 03/31/21 Urinary Catheter Time of Insertion: 05:11 Date Urinary Catheter Removed: 04/01/21 Time Urinary Catheter Discontinued: 09:06 Discharge Data Data Completed and Pending: Completed Studies During Hospitalization Category Date Time Status XR chest 1V edna ble [id number] Stat Exams 03/30/21 17:54 Completed Pending at discharge Category Date Time Status Basic Metabolic P mikey AM LABS Lab 04/02/21 04:00 Ordered Basic Metabolic P mikey AM LABS Lab 04/03/21 04:00 Ordered Blood Culture Sta t Lab 03/30/21 18:41 Results Complete Blood Co unt w/Auto AM LABS Lab 04/02/21 04:00 Ordered Complete Blood Co unt w/Auto AM LABS Lab 04/03/21 04:00 Ordered Magnesium AM LABS Lab 04/02/21 04:00 Ordered Magnesium AM LABS Lab 04/03/21 04:00 Ordered Prothrombin Time INR AM LABS Lab 04/02/21 04:00 Ordered Prothrombin Time INR AM LABS Lab 04/03/21 04:00 Ordered Urine Culture Sta t Lab 03/30/21 20:32 Results Labs from last 24 hours 04/01/21 04/01/21 04/01/21 12:00 06:19 02:59 WBC RBC Hgb Hct MCV MCH MCHC RDW Plt Count MPV Neut % (Auto) Lymph % (Auto) Leake % (Auto) Eos % (Auto) Baso % (Auto) Neut # (Auto) Lymph # (Auto) Leake # (Auto) Eos # (Auto) Baso # (Auto) Nucleated RBC % (a uto) Nucleated RBCs # PT INR Sodium Potassium Chloride Carbon Dioxide Anion Gap BUN Creatinine GFR Calculation Glucose POC Glucose 101 130 H Calculated Osmolal ity Calcium Magnesium Triglycerides 81 Cholesterol 145 LDL Cholesterol, C alc 84 HDL Cholesterol 45 L LDL/HDL Ratio 1.87 Cholesterol/HDL Ra tacos 3.22 Procalcitonin 0.08 TSH 04/01/21 04/01/21 04/01/21 02:59 02:59 02:59 WBC 6.2 RBC 3.44 L Hgb 10.0 L Hct 34.3 L MCV 99.7 H MCH 29.1 MCHC 29.2 L RDW 15.4 H Plt Count 250 MPV 10.1 Neut % (Auto) 58.3 Lymph % (Auto) 24.7 Leake % (Auto) 10.2 Eos % (Auto) 6.0 Baso % (Auto) 0.5 Neut # (Auto) 3.62 Lymph # (Auto) 1.5 Leake # (Auto) 0.6 Eos # (Auto) 0.4 Baso # (Auto) 0.0 Nucleated RBC % (a uto) 0 Nucleated RBCs # 0.0 PT 26.40 H INR 2.38 H Sodium 136 Potassium 3.6 Chloride 93 L Carbon Dioxide 37 H Anion Gap 9.6 BUN 12 Creatinine 0.5 L GFR Calculation 167.9 H Glucose 90 POC Glucose Calculated Osmolal ity 281 L Calcium 9.1 Magnesium 1.7 Triglycerides Cholesterol LDL Cholesterol, C alc HDL Cholesterol LDL/HDL Ratio Cholesterol/HDL Ra tacos Procalcitonin TSH 2.92 03/31/21 03/31/21 19:51 18:05 WBC RBC Hgb Hct MCV MCH MCHC RDW Plt Count MPV Neut % (Auto) Lymph % (Auto) Leake % (Auto) Eos % (Auto) Baso % (Auto) Neut # (Auto) Lymph # (Auto) Leake # (Auto) Eos # (Auto) Baso # (Auto) Nucleated RBC % (a uto) Nucleated RBCs # PT INR Sodium Potassium Chloride Carbon Dioxide Anion Gap BUN Creatinine GFR Calculation Glucose POC Glucose 146 H 88 Calculated Osmolal ity Calcium Magnesium Triglycerides Cholesterol LDL Cholesterol, C alc HDL Cholesterol LDL/HDL Ratio Cholesterol/HDL Ra tacos Procalcitonin TSH Vitals: Last Vital Signs Temp 98.1 F 04/01/21 12:00 Pulse 100 04/01/21 15:20 Resp 20 H 04/01/21 15:20 BP 135/90 04/01/21 12:00 Pulse Ox 90 04/01/21 15:20 Discharge Plan Discharge Patient Disposition: Home Condition: Stable Prescriptions: New warfarin [Jantoven] 3 mg Tablet 3 mg PO DAILY@1400 30 Days RF: 0 levofloxacin 500 mg tablet 500 mg PO DAILY 5 Days Qty: 5 RF: 0 Continued omeprazole 40 mg Capsule,Delayed Release(Dr/Ec) 40 mg PO DAILY RF: 0 furosemide 40 mg Tablet 40 mg PO DAILY RF: 0 hydrocodone-acetaminophen 10-325 mg tablet 1 tab PO Q6H PRN (Reason: Pain) RF: 0 tamsulosin 0.4 mg Capsule 0.4 mg PO DAILY RF: 0 paroxetine HCl 20 mg Tablet 20 mg PO DAILY RF: 0 aspirin 81 mg Tablet,Chewable 81 mg PO DAILY RF: 0 sotalol 80 mg tablet 60 mg PO DAILY RF: 0 Changed lisinopril 2.5 mg tablet 10 mg PO DAILY 30 Days Qty: 30 RF: 2 Discharge Orders: Discharge Order (Routine); Ordered 04/01/21 Ordered By: Bertrand Galicia Referrals: [facility] [Outside] Robert Mustafa [Primary Care Provider] - Ashu Patel MD [Physician] - 1 month Nuris Zuniga MD [Physician] - 2 weeks Discharge Diet: Diabetic Discharge Activity: Resume usual activity Patient Instructions: Opioid Safety Discharge Attestations Time Spent in Discharge Care*: less than 30 min Specific Discharge Activities: educating patient, educating and/or supporting family/caregiver, discussing with pcp/other providers, discussing with pillowcase folder/social workers/dc planners, documenting/other paperwork and evaluating patient/reviewing data Status at Discharge: Cognitive status at discharge: cognitively intact , Behavioral status at discharge: cooperative , Quality Metrics Clinical Quality Measures During this hospital stay, did patient experience: None Coding Level of Care Code Acute Chg FW DC note Diagnoses Respiratory failure with hypoxia and hypercapnia J96.91; J96.92 Acute exacerbation of chronic obstructive airways disease J44.1 Diastolic heart failure I50.30 Atrial fibrillation I48.11 Atrial fibrillation type: longstanding persistent Diabetes mellitus, type II E11.9; Z79.4 Diabetes mellitus nursing home insulin use: with terminal block assembler use Diabetes mellitus complication status: without complication Morbid obesity with BMI of 50.0-59.9, adult E66.01; Z68.43 Cor pulmonale I27.81 Hypertension I10 Hypertension type: essential hypertension
--- NOTE | 2021-04-01 17:38 | PC.NURSE ---
Discharge Note Patient discharged to Home via private vehicle accompanied by brother. Discharge instructions reviewed with patient and/or retail field representative. Mobile pharmacy medications and/or prescriptions provided. Belongings/home medications returned.
--- NOTE | 2021-04-04 09:04 | PC.SOCIAL ---
discharge follow up call made, spoke with patient. patient picked up medications from the pharmacy and he is taking as prescribed. patient is aware of change in Lisinopril. Patient has all follow up appointments written down and has transportation to all appointments. Patient reports i feel better the past few days than I have all year. Patient denies SOB, continues home O2 at 3L NC. Patient denies any questions or concerns. Patient reports everyone was just great there, every person had a smile and was friendly
== END 2021-04-01 17:15 | disposition home health service (06) | DRG 190 ==
LOC: ER 20:52 → CSU 21:14
PROVIDERS: Admitting Provider Hospitalist; Emergency Provider Emergency Medicine; PCP Family Medicine; Visit Provider Internal Medicine
DX: J44.1 Chronic obstructive pulmonary disease with (acute) exacerbation (principal); I50.33 Acute on chronic diastolic (congestive) heart failure; J96.22 Acute and chronic respiratory failure with hypercapnia; J96.21 Acute and chronic respiratory failure with hypoxia; E66.2 Morbid (severe) obesity with alveolar hypoventilation; Z68.43 Body mass index [BMI] 50.0-59.9, adult; I48.11 Longstanding persistent atrial fibrillation; N39.0 Urinary tract infection, site not specified; I11.0 Hypertensive heart disease with heart failure; I27.81 Cor pulmonale (chronic); E11.9 Type 2 diabetes mellitus without complications; Z79.01 Long term (current) use of anticoagulants; Z99.89 Dependence on other enabling machines and devices; Z79.82 Long term (current) use of aspirin; K21.9 Gastro-esophageal reflux disease without esophagitis; K27.9 Peptic ulcer, site unspecified, unspecified as acute or chronic, without hemorrhage or perforation; B96.89 Other specified bacterial agents as the cause of diseases classified elsewhere; Z91.81 History of falling; Z87.891 Personal history of nicotine dependence; Z82.5 Family history of asthma and other chronic lower respiratory diseases; Z99.81 Dependence on supplemental oxygen; Z79.84 Long term (current) use of oral hypoglycemic drugs
CPT/HCPCS: 36415; 36416; 36600; 51702; 71045; 80048; 80051; 80053; 80061; 81001; 82330; 82805; 82962; 83605; 83735; 83880; 84145; 84443; 84484; 85025; 85610; 85730; 87040; 87077; 87086; 87186; 87426; 93005; 94640; 94660; 94664; 96372; 97116; 97162; 99291; J0456; J0696; J1650; J1815; J1940; J7050

== ENCOUNTER 2021-06-19 16:58 | Inpatient (IN) | payer MEDICARE, SELFPAY ==
--- NOTE | 2021-06-19 17:10 | XRR_ITS ---
PROCEDURE INFORMATION: Exam: XR Chest Exam date and time: 06/19/2021 5:10 PM Age: 66 years old Clinical indication: Shortness of breath; Additional info: SOB TECHNIQUE: Imaging protocol: XR of the chest. Views: 1 view. COMPARISON: CR XR chest 1V portable [id number] 03/30/2021 6:02 PM FINDINGS: Lungs: Right basilar atelectasis. Pleural spaces: Moderate volume right pleural effusion. No pneumothorax. Heart/Mediastinum: Severe cardiomegaly with pulmonary vascular congestion. Bones/joints: Visualized osseous structures are intact. XR/XR chest 1V portable [id number] IMPRESSION: Severe cardiomegaly and pulmonary vascular congestion. Moderate volume right pleural effusion with atelectasis of the right lung base.
--- NOTE | 2021-06-19 17:10 | ECG_ITS ---
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
[2021-06-19 17:13] VITALS: BP 171/90; PULSE 60; RESP 35; TEMP 35.8; O2SAT 98; BMI 52.9
--- NOTE | 2021-06-19 17:22 | W.ED.SOB ---
Documented by User: Acacia Caal MD 06/19/21 17:25 HPI - SOB/Dyspnea General: Chief Complaint: Shortness of Breath/Dyspnea Stated Complaint: SOB Time Seen by Provider: 06/19/21 17:04 Source: patient Mode of arrival: ambulatory Limitations: no limitations History of Present Illness: HPI Narrative: 66-year-old male who states that he has been having increasing shortness of breath over the last 2 days he has a history of morbid obesity along with COPD. He states that he just gets short of breath with activity patient here is 96% on 5 L he is on 5 L at baseline he states that he does not use a nebulizer at home no sick contacts no fever Associated symptoms: Deny abdominal pain, chest pain, fever(s), nausea or vomiting Review of Systems Const: Denies: fever(s), chills, body aches or change in appetite Eyes: Denies: blurry vision or eye discomfort ENMT: Denies: throat pain or dental pain Card: Denies: chest pain Resp: Reports: dyspnea GI: Denies: abdominal pain, nausea, vomiting or diarrhea : Denies: dysuria Musc: Denies: neck pain or back pain Skin/Breast: Denies: rash Neuro: Denies: headache(s) Psych: Denies: depression Laureano/Lymph: Denies: easy bruising All/Imm: Denies: urticaria PFSH ED PFSH: Medical History Acute exacerbation of chronic obstructive airways disease Atrial fibrillation Chronic anticoagulation Cor pulmonale Diabetes mellitus, type II Diastolic heart failure GERD (gastroesophageal reflux disease) History of gastric ulcer with perforation Hypertension Morbid obesity with BMI of 50.0-59.9, adult Obesity On home oxygen therapy 2-3 L Pneumonia Recurrent falls Respiratory failure with hypoxia and hypercapnia Surgical History History of esophagogastroduodenoscopy History of exploratory laparotomy for perforated gastric ulcer Family History Father Cancer lung Mother Asthma CAD (coronary artery disease) Sister Cerebral aneurysm Social History Smoking and tobacco status: former smoker Quit status (tobacco): has quit using tobacco Year quit tobacco: 1978 - 1PPD x 7 Years Second hand smoke exposure: Yes Smoking risk assessment/counseling performed?: No Alcohol intake: current Alcohol intake frequency: few times a week Alcohol type: beer Counseling given: No Counseling given: No Lives independently: Yes Household members: family Marital status: Current occupational status: disabled Previous occupational history: history of working in [employer] History of recent travel: No Current gender identity: Male Physical Exam Const: COMMON NORMALS: no acute distress and patient oriented x3 NUTRITIONAL APPEARANCE: obese HENMT: COMMON NORMALS: normocephalic and atraumatic HEAD & SCALP: normocephalic and atraumatic Eye: COMMON NORMALS: Equal, round and reactive pupils present and EOMs intact bilaterally PUPIL: Yes Equal, round and reactive pupils present Neck/C-Spine: COMMON NORMALS: full ROM and supple Chest: COMMONS NORMALS: normal inspection of the chest and normal palpation of entire chest wall Resp: COMMON NORMALS: normal respiratory effort, No retractions and No use of accessory muscles AUSCULTATION: wheezes Cardio: COMMON NORMALS: regular rate, regular rhythm and No murmurs present (Cardio) RATE: regular rate RHYTHM: regular rhythm GI: COMMON NORMALS: Normal to inspection, nondistended, normoactive bowel sounds present, Soft to palpation, non-tender and no masses PALPATION: Yes Soft to palpation Extremity: COMMON NORMALS: normal to inspection and full ROM Neuro: COMMON NORMALS: patient oriented x3, moves all extremities and no focal motor deficits Psych: COMMON NORMALS: mental status grossly normal, Normal thought process present and cooperative THOUGHT PROCESS: Normal thought process present Skin: COMMON NORMALS: no rashes or lesions noted and no wounds GENERAL SKIN EXAM: no rashes or lesions noted Course Vital Signs: Vital signs: Vital Signs Temperature 96.7 F L 06/19/21 18:30 Pulse Rate 55 L 06/19/21 19:35 Respiratory Rate 24 H 06/19/21 18:30 Blood Pressure 159/93 06/19/21 18:30 Pulse Oximetry 94 06/19/21 19:35 MDM - SOB/Dyspnea Lab Data: Labs: Lab Results 06/19/21 06/19/21 06/19/21 15:50 17:50 18:28 WBC 4.4 10^3/uL 10^3/ uL (4.0-10.0) RBC 3.48 10^6/uL L 10 ^6/uL (4.1-5.3) Hgb 9.3 g/dL L g/dL (11.7-16.6) Hct 32.8 % L % (42.0-52.0) MCV 94.3 fl H fl (80-94) MCH 26.7 pg L pg (28.0-34.0) MCHC 28.4 g/dL L g/dL (30.0-36.0) RDW 15.9 % H % (12.1-15.1) Plt Count 248 10^3/cmm 10^3 /cmm (130-400) MPV 9.9 fL fL (7.4-10.4) Neut % (Auto) 63.7 % % Lymph % (Auto) 20.4 % % [place] % (Auto) 8.5 % % Eos % (Auto) 6.2 % % Baso % (Auto) 0.7 % % Neut # (Auto) 2.78 10^3/uL 10^3 /uL (1.8-7.7) Lymph # (Auto) 0.9 10^3/uL 10^3/ uL (0.8-4.8) [place] # (Auto) 0.4 10^3/uL 10^3/ uL (0.2-0.9) Eos # (Auto) 0.3 10^3/uL 10^3/ uL (0.0-0.8) Baso # (Auto) 0.0 10^3/uL 10^3/ uL (0.0-0.1) Nucleated RBC % (a uto) 0 % % Nucleated RBCs # 0.0 /100WBC /100W BC PT INR Specimen Type Arterial Sample Site Umbilical cord ABG pH 7.27 L (7.35-7.45) ABG pCO2 ABG pO2 190.0 mmHg H mmHg (80.0-100.0) ABG HCO3 42.2 mmol/L H mmo l/L (22-26) ABG Base Excess 12.6 mmol/L H mmo l/L (-2.0-2.0) Ronald Test Pos Hematocrit 29.4 % L % (42-52) Hgb O2 Saturation 97.3 % % (95-100) Carboxyhemoglobin 1.6 %THgb %THgb (0.4-20.1) Methemoglobin 1.1 % % (0.4-1.5) Total Hemoglobin 9.6 g/dL L g/dL (14-18) O2 Delivery Device Nc O2 Liters/Min 3.0 % % FiO2 CPAP Radiology Scheduler ID Bj Sodium Potassium Chloride Carbon Dioxide Anion Gap BUN Creatinine GFR Calculation Glucose Calculated Osmolal ity Calcium Total Bilirubin AST ALT Alkaline Phosphata se NT-Pro-B Natriuret Pep Total Protein Albumin Globulin SARS-CoV-2 Ag (Rap id) Negative (Negative) 06/19/21 06/19/21 06/19/21 18:28 18:28 21:09 WBC RBC Hgb Hct MCV MCH MCHC RDW Plt Count MPV Neut % (Auto) Lymph % (Auto) [place] % (Auto) Eos % (Auto) Baso % (Auto) Neut # (Auto) Lymph # (Auto) [place] # (Auto) Eos # (Auto) Baso # (Auto) Nucleated RBC % (a uto) Nucleated RBCs # PT 36.10 SECONDS H S ECONDS (12.1-14.9) INR 3.56 H (0.8-1.2) Specimen Type Arterial Sample Site Radial, left ABG pH 7.34 L (7.35-7.45) ABG pCO2 77.1 mmHg H* mmHg (35-45) ABG pO2 77.4 mmHg L mmHg (80.0-100.0) ABG HCO3 41.9 mmol/L H mmo l/L (22-26) ABG Base Excess 13.7 mmol/L H mmo l/L (-2.0-2.0) Ronald Test Pos Hematocrit 30.5 % L % (42-52) Hgb O2 Saturation Carboxyhemoglobin Methemoglobin Total Hemoglobin O2 Delivery Device Bipap O2 Liters/Min FiO2 40.0 % % CPAP 8.0 cmH20 cmH20 Radiology Scheduler ID Nicer2 Sodium 140 mmol/L mmol/L (136-145) Potassium 4.1 mmol/L mmol/L (3.5-5.1) Chloride 95 mmol/L L mmol/ L (98-107) Carbon Dioxide 33 mmol/L H mmol/ L (22-29) Anion Gap 16.1 (5-19) BUN 9 mg/dL mg/dL (8-23) Creatinine 0.6 mg/dL L mg/dL (0.7-1.2) GFR Calculation 135.6 mL/min H mL /min (90-130) Glucose 103 mg/dL mg/dL (65-115) Calculated Osmolal ity 289 mOsm/kg mOsm/ kg (285-295) Calcium 8.6 mg/dL mg/dL (8.5-10.5) Total Bilirubin 0.6 mg/dL mg/dL (0.15-1.2) AST 21 U/L U/L (0-40) ALT 8 U/L U/L (0-41) Alkaline Phosphata se 74 IU/L IU/L (40-130) NT-Pro-B Natriuret Pep 549 pg/mL H pg/mL (0-125) Total Protein 6.9 g/dL g/dL (6.6-8.7) Albumin 3.4 g/dL L g/dL (3.5-5.2) Globulin 3.5 g/dL g/dL (1.3-4.6) SARS-CoV-2 Ag (Rap id) EKG Data^: EKG 1: Attestation: I personally reviewed and interpreted this EKG as follows: EKG Interpretation Date: 06/19/21 EKG interpretation time: 17:21 Interpretation: afib hr [address] or t wave abnormalities qrs 96 qtc 420 Discharge Plan Discharge Patient Disposition: Admitted As Inpatient Admit Provider: Ginna Camarillo Clinical Impression: Acute exacerbation of chronic obstructive airways disease, Acute on chronic respiratory failure with hypoxia and hypercapnia Condition: Fair Coding Level of Care Code ED Service Parts Coordinator for Chg Fwd Exam Comprehensive Documented by User: Oleksandr Okeefe, 06/19/21 22:04 HPI - SOB/Dyspnea General: Chief Complaint: Shortness of Breath/Dyspnea Stated Complaint: SOB Time Seen by Provider: 06/19/21 17:04 PFSH ED PFSH: Medical History Acute exacerbation of chronic obstructive airways disease Atrial fibrillation Chronic anticoagulation Cor pulmonale Diabetes mellitus, type II Diastolic heart failure GERD (gastroesophageal reflux disease) History of gastric ulcer with perforation Hypertension Morbid obesity with BMI of 50.0-59.9, adult Obesity On home oxygen therapy 2-3 L Pneumonia Recurrent falls Respiratory failure with hypoxia and hypercapnia Surgical History History of esophagogastroduodenoscopy History of exploratory laparotomy for perforated gastric ulcer Family History Father Cancer lung Mother Asthma CAD (coronary artery disease) Sister Cerebral aneurysm Social History Smoking and tobacco status: former smoker Quit status (tobacco): has quit using tobacco Year quit tobacco: 1978 - PD x 7 Years Second hand smoke exposure: Yes Smoking risk assessment/counseling performed?: No Alcohol intake: current Alcohol intake frequency: few times a week Alcohol type: beer Counseling given: No Counseling given: No Lives independently: Yes Household members: family Marital status: Current occupational status: disabled Previous occupational history: history of working in [employer] History of recent travel: No Current gender identity: Male Course Consultations: Consultation #1: bimal Vital Signs: Vital signs: Vital Signs Temperature 96.7 F L 06/19/21 18:30 Pulse Rate 55 L 06/19/21 19:35 Respiratory Rate 24 H 06/19/21 18:30 Blood Pressure 159/93 06/19/21 18:30 Pulse Oximetry 94 06/19/21 19:35 MDM - SOB/Dyspnea MDM Narrative: Medical decision making narrative: 66-year-old gentleman checked out to me at shift change by Dr. Caal. Respiratory symptoms. No fever. White blood cell count of 4.4. Hemoglobin of 9 which is near his baseline. Creatinine is 0.6. Initial pH of 7.27 with a PCO2 of 96. He was placed on a BiPAP, as he was awake and alert. Repeat blood gas testing shows a pH of 7.34 with a PCO2 of 70s, which is likely approaching his baseline. He has been mildly bradycardic on the monitor 50-60 sinus. Saturations are 94% currently. No pneumonia by chest x-ray. He does have a pleural effusion and some cardiomegaly. His BNP is only minimally elevated. He is given 80 mg of Lasix for this. He will need continued nebs and steroids. He will be admitted. Lab Data: Labs: Lab Results 06/19/21 06/19/21 06/19/21 15:50 17:50 18:28 WBC 4.4 10^3/uL 10^3/ uL (4.0-10.0) RBC 3.48 10^6/uL L 10 ^6/uL (4.1-5.3) Hgb 9.3 g/dL L g/dL (11.7-16.6) Hct 32.8 % L % (42.0-52.0) MCV 94.3 fl H fl (80-94) MCH 26.7 pg L pg (28.0-34.0) MCHC 28.4 g/dL L g/dL (30.0-36.0) RDW 15.9 % H % (12.1-15.1) Plt Count 248 10^3/cmm 10^3 /cmm (130-400) MPV 9.9 fL fL (7.4-10.4) Neut % (Auto) 63.7 % % Lymph % (Auto) 20.4 % % [place] % (Auto) 8.5 % % Eos % (Auto) 6.2 % % Baso % (Auto) 0.7 % % Neut # (Auto) 2.78 10^3/uL 10^3 /uL (1.8-7.7) Lymph # (Auto) 0.9 10^3/uL 10^3/ uL (0.8-4.8) [place] # (Auto) 0.4 10^3/uL 10^3/ uL (0.2-0.9) Eos # (Auto) 0.3 10^3/uL 10^3/ uL (0.0-0.8) Baso # (Auto) 0.0 10^3/uL 10^3/ uL (0.0-0.1) Nucleated RBC % (a uto) 0 % % Nucleated RBCs # 0.0 /100WBC /100W BC PT INR Specimen Type Arterial Sample Site Umbilical cord ABG pH 7.27 L (7.35-7.45) ABG pCO2 ABG pO2 190.0 mmHg H mmHg (80.0-100.0) ABG HCO3 42.2 mmol/L H mmo l/L (22-26) ABG Base Excess 12.6 mmol/L H mmo l/L (-2.0-2.0) Ronald Test Pos Hematocrit 29.4 % L % (42-52) Hgb O2 Saturation 97.3 % % (95-100) Carboxyhemoglobin 1.6 %THgb %THgb (0.4-20.1) Methemoglobin 1.1 % % (0.4-1.5) Total Hemoglobin 9.6 g/dL L g/dL (14-18) O2 Delivery Device Nc O2 Liters/Min 3.0 % % FiO2 CPAP Radiology Scheduler ID Bj Sodium Potassium Chloride Carbon Dioxide Anion Gap BUN Creatinine GFR Calculation Glucose Calculated Osmolal ity Calcium Total Bilirubin AST ALT Alkaline Phosphata se NT-Pro-B Natriuret Pep Total Protein Albumin Globulin SARS-CoV-2 Ag (Rap id) Negative (Negative) 06/19/21 06/19/21 06/19/21 18:28 18:28 21:09 WBC RBC Hgb Hct MCV MCH MCHC RDW Plt Count MPV Neut % (Auto) Lymph % (Auto) [place] % (Auto) Eos % (Auto) Baso % (Auto) Neut # (Auto) Lymph # (Auto) [place] # (Auto) Eos # (Auto) Baso # (Auto) Nucleated RBC % (a uto) Nucleated RBCs # PT 36.10 SECONDS H S ECONDS (12.1-14.9) INR 3.56 H (0.8-1.2) Specimen Type Arterial Sample Site Radial, left ABG pH 7.34 L (7.35-7.45) ABG pCO2 77.1 mmHg H* mmHg (35-45) ABG pO2 77.4 mmHg L mmHg (80.0-100.0) ABG HCO3 41.9 mmol/L H mmo l/L (22-26) ABG Base Excess 13.7 mmol/L H mmo l/L (-2.0-2.0) Ronald Test Pos Hematocrit 30.5 % L % (42-52) Hgb O2 Saturation Carboxyhemoglobin Methemoglobin Total Hemoglobin O2 Delivery Device Bipap O2 Liters/Min FiO2 40.0 % % CPAP 8.0 cmH20 cmH20 Radiology Scheduler ID Nicer2 Sodium 140 mmol/L mmol/L (136-145) Potassium 4.1 mmol/L mmol/L (3.5-5.1) Chloride 95 mmol/L L mmol/ L (98-107) Carbon Dioxide 33 mmol/L H mmol/ L (22-29) Anion Gap 16.1 (5-19) BUN 9 mg/dL mg/dL (8-23) Creatinine 0.6 mg/dL L mg/dL (0.7-1.2) GFR Calculation 135.6 mL/min H mL /min (90-130) Glucose 103 mg/dL mg/dL (65-115) Calculated Osmolal ity 289 mOsm/kg mOsm/ kg (285-295) Calcium 8.6 mg/dL mg/dL (8.5-10.5) Total Bilirubin 0.6 mg/dL mg/dL (0.15-1.2) AST 21 U/L U/L (0-40) ALT 8 U/L U/L (0-41) Alkaline Phosphata se 74 IU/L IU/L (40-130) NT-Pro-B Natriuret Pep 549 pg/mL H pg/mL (0-125) Total Protein 6.9 g/dL g/dL (6.6-8.7) Albumin 3.4 g/dL L g/dL (3.5-5.2) Globulin 3.5 g/dL g/dL (1.3-4.6) SARS-CoV-2 Ag (Rap id) Discharge Plan Discharge Patient Disposition: Admitted As Inpatient Admit Provider: Ginna Camarillo Clinical Impression: Acute exacerbation of chronic obstructive airways disease, Acute on chronic respiratory failure with hypoxia and hypercapnia Condition: Fair Coding Level of Care Code ED Service Parts Coordinator for Chg Fwd Exam Comprehensive
[2021-06-19 18:03] LABS: ABG PH Result 7.27 (7.35-7.45); Arterial Blood Gas Hematocrit 29.4 % (42-52); Base Excess ABG 12.6 mmol/L (-2.0-2.0); Blood Gas Allen Test Pos; Blood Gas Sample Site Umbilical cord; Blood Gas Sample Type Arterial; Carboxyhemoglobin 1.6 %THgb (0.4-20.1); HCO3 ABG 42.2 mmol/L (22-26); HGB O2 Sat 97.3 % (95-100); Methemoglobin 1.1 % (0.4-1.5); Oxygen Device NC; Total Hemoglobin 9.6 g/dL (14-18)
[2021-06-19 18:16] VITALS: RESP 8; O2SAT 95
[2021-06-19] MEDS: ipratropium-albuterol 3 mL Neb INHALATION (18:19)
[2021-06-19 18:26] LABS: SARS Covid-2 Antigen Negative (Negative)
[2021-06-19 18:30] VITALS: BP 159/93; PULSE 50; PULSE 53; RESP 24; TEMP 35.9; O2SAT 91
[2021-06-19 18:39] LABS: Basophils % 0.7 %; Eosinophils # 0.3 10^3/uL (0.0-0.8); Eosinophils % 6.2 %; Hematocrit 32.8 % (42.0-52.0); Hemoglobin 9.3 g/dL (11.7-16.6); Lymphocytes # 0.9 10^3/uL (0.8-4.8); Lymphocytes % 20.4 %; Mean Corpuscular HGB Conc 28.4 g/dL (30.0-36.0); Mean Corpuscular Hemoglobin 26.7 pg (28.0-34.0); Mean Corpuscular Volume 94.3 fl (80-94); Mean Platelet Volume 9.9 fL (7.4-10.4); Monocytes # 0.4 10^3/uL (0.2-0.9); Monocytes % 8.5 %; Neutrophils # 2.78 10^3/uL (1.8-7.7); Neutrophils % 63.7 %; Nucleated Red Blood Cells % 0 %; Platelet Count 248 10^3/cmm (130-400); Red Blood Count 3.48 10^6/uL (4.1-5.3); Red Cell Distribution Width 15.9 % (12.1-15.1); White Blood Count 4.4 10^3/uL (4.0-10.0)
[2021-06-19 18:56] LABS: INR 3.56 (0.8-1.2)
[2021-06-19 19:08] LABS: Alanine Aminotransferase 8 U/L (0-41); Albumin Level 3.4 g/dL (3.5-5.2); Alkaline Phosphatase 74 IU/L (40-130); Anion Gap 16.1 (5-19); Aspartate Amino Transferase 21 U/L (0-40); Blood Urea Nitrogen 9 mg/dL (8-23); Calcium 8.6 mg/dL (8.5-10.5); Carbon Dioxide 33 mmol/L (22-29); Chloride 95 mmol/L (98-107); Globulin 3.5 g/dL (1.3-4.6); Glomerular Filtration Rate 135.6 mL/min (90-130); Glucose 103 mg/dL (65-115); NT Pro B Type Natriuretic Pept 549 pg/mL (0-125); Osmolality Calculated 289 mOsm/kg (285-295); Potassium 4.1 mmol/L (3.5-5.1); Sodium 140 mmol/L (136-145); Total Bilirubin 0.6 mg/dL (0.15-1.2); Total Protein 6.9 g/dL (6.6-8.7)
[2021-06-19 19:35] VITALS: PULSE 55; RESP 8; O2SAT 94
[2021-06-19 21:21] LABS: ABG PH Result 7.34 (7.35-7.45); Arterial Blood Gas Hematocrit 30.5 % (42-52); Base Excess ABG 13.7 mmol/L (-2.0-2.0); Blood Gas Allen Test Pos; Blood Gas Sample Site Radial, left; Blood Gas Sample Type Arterial; HCO3 ABG 41.9 mmol/L (22-26); Oxygen Device BIPAP; PO2 ABG 77.4 mmHg (80.0-100.0)
[2021-06-19 21:25] LABS: ABG PCO2 77.1 mmHg (35-45)
[2021-06-19 23:00] VITALS: BP 197/80
--- NOTE | 2021-06-19 23:03 | PM.HP ---
Providers/Chief Complaint Admitting Physician: Ginna Camarillo MD Primary Care Provider: Robert Mustafa Chief Complaint: SOB History of Present Illness Nhan Sol is a 66 year old male past medical history of chronic hypoxic hypercarbia respiratory failure, on 2 to 3 L nasal cannula, obesity hypoventilation syndrome on AVAPS, morbid obesity, atrial fibrillation on Coumadin, who presents to [facility] due to complaints of shortness of breath. Upon arrival to hospital patient's Arterial blood gases showed a pH of 7.28,pc02 pending, PO2 of 140 and a bicarb of 41.9. In Er patient was given iv steroids, duoneb treatment and placed on bipap . chest x-ray shows moderate volume of right pleural effusion and stelactasis with cardiomegaly. Review of Systems General: Reports: 10 or more systems reviewed and unremarkable except in HPI and below Const: Denies: fever(s), chills or body aches Eyes: Denies: change in vision, blurry vision or photophobia ENMT: Reports: hoarseness; Denies: throat pain, enlarged tonsils, odynophagia or nasal congestion Card: Denies: chest pain, palpitations, irregular heart rhythm, edema, swelling of feet/ankles, lightheadedness, pre-syncope, dyspnea on exertion or orthopnea Resp: Denies: dyspnea, productive cough, non-productive cough, wheezing, stridor, pain on inspiration, change in phlegm color, hemoptysis or chest congestion GI: Denies: abdominal pain, nausea, vomiting, hematemesis, coffee ground emesis, dysphagia, heartburn, diarrhea, constipation, GI cramping, change in stool character, hematochezia or melena : Denies: flank pain, dysuria, urinary frequency, urinary urgency, urinary hesitancy or hematuria Musc: Denies: neck pain, back pain, extremity pain, joint swelling, joint warmth or deformity Neuro: Denies: headache(s), numbness in extremities, weakness in extremities, sensory changes, difficulty walking, frequent falls, dizziness, vertigo, behavioral changes, Slurred speech present or seizure-like activity Psych: Denies: anxiety, depression, suicidal ideation or homicidal ideation Endo: Denies: polyuria, polydipsia, tired all the time, cold intolerance or hot flashes Laureano/Lymph: Denies: easy bruising or easy bleeding Medications/Allergies Home Medications Medication Instructions Recorded Confirmed Last Taken Type omeprazole 40 mg PO DAILY 10/17/20 05/04/21 03/30/21 08:00 History aspirin 81 mg PO DAILY 12/31/20 05/04/21 03/30/21 08:00 History furosemide 40 mg PO DAILY 12/31/20 05/04/21 03/30/21 08:00 History hydrocodone-acetaminophen 1 tab PO Q6H PRN 12/31/20 05/04/21 03/30/21 08:00 History paroxetine HCl 20 mg PO DAILY 12/31/20 05/04/21 03/30/21 08:00 History tamsulosin 0.4 mg PO DAILY 12/31/20 05/04/21 03/30/21 08:00 History sotalol 60 mg PO DAILY 03/30/21 05/04/21 03/30/21 08:00 History lisinopril 10 mg PO DAILY 30 Days #30 tab 04/01/21 05/04/21 Unknown Rx Allergies Allergy/AdvReac Type Severity Reaction Status Date / Time tape Allergy Unknown Uncoded 05/04/21 10:28 PFSH Acute PFSH: Medical History (Updated 06/19/21 @ 23:18 by Ginna Camarillo MD) Acute exacerbation of chronic obstructive airways disease Atrial fibrillation Chronic anticoagulation Cor pulmonale Diabetes mellitus, type II Diastolic heart failure GERD (gastroesophageal reflux disease) History of gastric ulcer with perforation Hypertension Morbid obesity with BMI of 50.0-59.9, adult Obesity On home oxygen therapy 2-3 L Pneumonia Recurrent falls Respiratory failure with hypoxia and hypercapnia Surgical History History of esophagogastroduodenoscopy History of exploratory laparotomy for perforated gastric ulcer Family History Father Cancer lung Mother Asthma CAD (coronary artery disease) Sister Cerebral aneurysm Social History Smoking and tobacco status: former smoker Quit status (tobacco): has quit using tobacco Year quit tobacco: 1978 - 1PPD x 7 Years Second hand smoke exposure: Yes Smoking risk assessment/counseling performed?: No Alcohol intake: current Alcohol intake frequency: few times a week Alcohol type: beer Counseling given: No Counseling given: No Lives independently: Yes Household members: family Marital status: Current occupational status: disabled Previous occupational history: history of working in [employer] History of recent travel: No Current gender identity: Male Vitals/I&O/Wt Last Vital Signs Temp 96.7 F L 06/19/21 18:30 Pulse 55 L 06/19/21 19:35 Resp 24 H 06/19/21 18:30 BP 159/93 06/19/21 18:30 Pulse Ox 94 06/19/21 19:35 Weight last 48 hrs Weight 197.313 kg Physical Exam Narrative: EXAM NARRATIVE: General: No acute distress, AO x3 HEENT: PERRLA, pupils bilaterally equal and reactive, pallors not present Chest: Normal vesicular breath sounds, no added sounds, equal good air entry bilaterally CVS: S1-S2 regular, no murmurs, no tachycardia, no gallops, no rubs Abdomen: Soft, nontender, no organomegaly, bowel sounds present Neuro: No focal deficits, no facial deformity, AO x3, power 5/5 in all limbs Data : 06/20/21 06:14 06/19/21 18:28 Other Labs: Laboratory Results WBC 4.4 10^3/uL (4.0-10.0) 06/19/21 18:28 RBC 3.48 10^6/uL (4.1-5.3) L 06/19/21 18:28 Hgb 9.3 g/dL (11.7-16.6) L 06/19/21 18:28 Hct 32.8 % (42.0-52.0) L 06/19/21 18:28 MCV 94.3 fl (80-94) H 06/19/21 18:28 MCH 26.7 pg (28.0-34.0) L 06/19/21 18:28 MCHC 28.4 g/dL (30.0-36.0) L 06/19/21 18:28 RDW 15.9 % (12.1-15.1) H 06/19/21 18:28 Plt Count 248 10^3/cmm (130-400) 06/19/21 18:28 MPV 9.9 fL (7.4-10.4) 06/19/21 18: Neut % (Auto) 63.7 % 06/19/21 18: Lymph % (Auto) 20.4 % 06/19/21 18:28 [place] % (Auto) 8.5 % 06/19/21 18:28 Eos % (Auto) 6.2 % 06/19/21 18: Baso % (Auto) 0.7 % 06/19/21 18: Neut # (Auto) 2.78 10^3/uL (1.8-7.7) 06/19/21 18: Lymph # (Auto) 0.9 10^3/uL (0.8-4.8) 06/19/21 18: [place] # (Auto) 0.4 10^3/uL (0.2-0.9) 06/19/21 18: Eos # (Auto) 0.3 10^3/uL (0.0-0.8) 06/19/21 18: Baso # (Auto) 0.0 10^3/uL (0.0-0.1) 06/19/21 18: Nucleated RBC % (auto) 0 % 06/19/21 18: Nucleated RBCs # 0.0 /100WBC 06/19/21 18: PT 36.10 SECONDS (12.1-14.9) H 06/19/21 18:28 INR 3.56 (0.8-1.2) H 06/19/21 18:28 Specimen Type Arterial 06/19/21 21:09 Sample Site Radial, left 06/19/21 21:09 ABG pH 7.34 (7.35-7.45) L 06/19/21 21:09 ABG pCO2 77.1 mmHg (35-45) H* 06/19/21 21:09 ABG pO2 77.4 mmHg (80.0-100.0) L 06/19/21 21:09 ABG HCO3 41.9 mmol/L (22-26) H 06/19/21 21:09 ABG Base Excess 13.7 mmol/L (-2.0-2.0) H 06/19/21 21:09 Ronald Test Pos 06/19/21 21:09 Hematocrit 30.5 % (42-52) L 06/19/21 21:09 Hgb O2 Saturation 97.3 % (95-100) 06/19/21 15:50 Carboxyhemoglobin 1.6 %THgb (0.4-20.1) 06/19/21 15:50 Methemoglobin 1.1 % (0.4-1.5) 06/19/21 15:50 Total Hemoglobin 9.6 g/dL (14-18) L 06/19/21 15:50 O2 Delivery Device Bipap 06/19/21 21:09 O2 Liters/Min 3.0 % 06/19/21 15:50 FiO2 40.0 % 06/19/21 21:09 CPAP 8.0 cmH20 06/19/21 21:09 Graphic Design Specialist ID [email or web address] 06/19/21 21:09 Sodium 140 mmol/L (136-145) 06/19/21 18:28 Potassium 4.1 mmol/L (3.5-5.1) 06/19/21 18:28 Chloride 95 mmol/L (98-107) L 06/19/21 18:28 Carbon Dioxide 33 mmol/L (22-29) H 06/19/21 18:28 Anion Gap 16.1 (5-19) 06/19/21 18:28 BUN 9 mg/dL (8-23) 06/19/21 18:28 Creatinine 0.6 mg/dL (0.7-1.2) L 06/19/21 18:28 GFR Calculation 135.6 mL/min (90-130) H 06/19/21 18:28 Glucose 103 mg/dL (65-115) 06/19/21 18:28 Calculated Osmolality 289 mOsm/kg (285-295) 06/19/21 18:28 Calcium 8.6 mg/dL (8.5-10.5) 06/19/21 18:28 Total Bilirubin 0.6 mg/dL (0.15-1.2) 06/19/21 18:28 AST 21 U/L (0-40) 06/19/21 18:28 ALT 8 U/L (0-41) 06/19/21 18:28 Alkaline Phosphatase 74 IU/L (40-130) 06/19/21 18:28 NT-Pro-B Natriuret Pep 549 pg/mL (0-125) H 12/19/21 18:28 Total Protein 6.9 g/dL (6.6-8.7) 06/19/21 18:28 Albumin 3.4 g/dL (3.5-5.2) L 06/19/21 18:28 Globulin 3.5 g/dL (1.3-4.6) 06/19/21 18:28 SARS-CoV-2 Ag (Rapid) Negative (Negative) 06/19/21 17:50 Impressions Chest X-Ray 06/19/21 17:10 IMPRESSION: Severe cardiomegaly and pulmonary vascular congestion. Moderate volume right pleural effusion with atelectasis of the right lung base. 06/19/21 06/19/21 15:50 21:09 ABG pH 7.27 L 7.34 L ABG pCO2 77.1 H* ABG pO2 190.0 H 77.4 L ABG HCO3 42.2 H 41.9 H ABG Base Excess 12.6 H 13.7 H A&P Assessment and plan (1) Acute exacerbation of chronic obstructive airways disease: Duonebs and budesonide inhaled nebulization scheduled iv steroids methylprednisone 60mg iv q8h Status: Acute (2) Acute on chronic respiratory failure with hypoxia and hypercapnia: multifactorial related to COPD, pleural effusion Status: Acute (3) Pleural effusion: Diuresis with lasix 60mg iv 12h monitor urine output and kidney function May need thoracentesis once INR ~2, currently at 3.85 Status: Acute Additional A&P Information Admit to med/surg for management of acute on chronic hypercapnic hypoxic respiratory failure secondary to COPD exacerbation, decompensated heart failure with preserved ejection fraction, moderate right pleural effusion. Attestations Medical Necessity Statement*: >2midnight admission anticipated for above defined care Coding Level of Care Code Acute Medical Imaging Technologist for [facility] Fwd Diagnoses Acute exacerbation of chronic obstructive airways disease J44.1 Acute on chronic respiratory failure with hypoxia and hypercapnia J96.21; J96.22 Pleural effusion J90
[2021-06-19 23:30] VITALS: PULSE 67; RESP 8; O2SAT 94
[2021-06-19 23:59] LABS: Troponin T (5th) Once 19 ng/L (0-15)
[2021-06-20] VITALS (16 sets, daily range): BP systolic 128–196; BP diastolic 70–99; PULSE 54–82; RESP 16–34; TEMP 36.3–37.1; O2SAT 92–97; BMI 52.9
[2021-06-20] MEDS: HYDROcodone-acetaminophen 10-325 mg Tablet 1 TAB PO ×3 (00:54→20:42)
[2021-06-20] MEDS: FUROsemide 10 mg/mL SDV 10mL 60 MG IVP ×3 (00:56→23:18)
[2021-06-20] MEDS: ipratropium-albuterol 3 mL Neb INHALATION ×4 (04:48→20:00)
[2021-06-20] MEDS: metoprolol tartrate 1 mg/1 mL SDV 5 mL 5 MG IVP (06:15)
[2021-06-20] MEDS: amlodipine 10 mg Tablet PO (06:15)
[2021-06-20 06:30] LABS: Basophils % 0.2 %; Hematocrit 33.3 % (42.0-52.0); Hemoglobin 9.8 g/dL (11.7-16.6); Lymphocytes # 0.7 10^3/uL (0.8-4.8); Lymphocytes % 16.4 %; Mean Corpuscular HGB Conc 29.4 g/dL (30.0-36.0); Mean Corpuscular Hemoglobin 27.3 pg (28.0-34.0); Mean Corpuscular Volume 92.8 fl (80-94); Mean Platelet Volume 10.3 fL (7.4-10.4); Monocytes % 0.7 %; Neutrophils # 3.35 10^3/uL (1.8-7.7); Neutrophils % 82.2 %; Nucleated Red Blood Cells % 0 %; Platelet Count 245 10^3/cmm (130-400); Red Blood Count 3.59 10^6/uL (4.1-5.3); Red Cell Distribution Width 15.7 % (12.1-15.1); White Blood Count 4.1 10^3/uL (4.0-10.0)
[2021-06-20 06:47] LABS: Alanine Aminotransferase 9 U/L (0-41); Albumin Level 3.5 g/dL (3.5-5.2); Alkaline Phosphatase 80 IU/L (40-130); Aspartate Amino Transferase 20 U/L (0-40); Blood Urea Nitrogen 12 mg/dL (8-23); Calcium 8.9 mg/dL (8.5-10.5); Carbon Dioxide 34 mmol/L (22-29); Chloride 93 mmol/L (98-107); Globulin 3.6 g/dL (1.3-4.6); Glomerular Filtration Rate 167.4 mL/min (90-130); Glucose 135 mg/dL (65-115); Osmolality Calculated 290 mOsm/kg (285-295); Sodium 139 mmol/L (136-145); Total Bilirubin 0.8 mg/dL (0.15-1.2); Total Protein 7.1 g/dL (6.6-8.7)
[2021-06-20 07:57] LABS: Procalcitonin 0.05 ng/mL (0-0.5)
[2021-06-20] MEDS: budesonide 0.5 mg/2 mL Neb INHALATION ×2 (08:04→20:00)
[2021-06-20] MEDS: pantoprazole DR 40 mg Tablet PO (09:46)
[2021-06-20] MEDS: sotalol 80 mg Tablet 60 MG PO (09:46)
[2021-06-20] MEDS: aspirin 81 mg Chew Tablet PO (09:46)
[2021-06-20] MEDS: PARoxetine 20 mg Tablet PO (09:47)
[2021-06-20] MEDS: lisinopril 10 mg Tablet PO (09:51)
[2021-06-20] MEDS: tamsulosin 0.4 mg Capsule PO (09:51)
--- NOTE | 2021-06-20 10:07 | PC.PHAR ---
pt states his brother maria teresa takes care of his medications-pts brother maria teresa [phone] verified pts medications-states the pt is no longer taking metformin 500mg daily last filled on 04/05/21 90d/s states the pt hasnt taken for at least 2 months-states the pt is no longer taking aspirin-pts brother maria teresa states warfarin was changed to 5mg bid about 2 weeks ago-ext med history shows last filled 05/11/21 90d/s for 5mg daily-notes are made in the pharmacy comments
--- NOTE | 2021-06-20 14:13 | PM.PN ---
Subjective Subjective: Interval history: Patient was on BiPAP settings 20/04 saturating well, no active chest pain or shortness of breath, He is complaining of feeling cold had multiple blankets Vitals/I&O/Wt Last Vital Signs Temp 97.3 F L 06/20/21 11:08 Pulse 74 06/20/21 11:08 Resp 23 H 06/20/21 11:08 BP 151/89 06/20/21 11:08 Pulse Ox 92 06/20/21 11:08 06/19/21 06/20/21 06/20/21 22:59 06:59 14:59 Intake Total 240 / 240 Balance 240 / 240 Weight last 48 hrs Weight 197.313 kg Weight 197.313 kg Physical Exam Narrative: EXAM NARRATIVE: Clinically looks fluid overloaded Venous stasis dermatitis Abdominal pannus with cellulitis Bilateral assisted breath sounds EOMI, PERRLA Nonfocal neuro exam he is awake and alert oriented to time place and person Morbid obesity Chronic skin ulcers Urinary Catheter Management^: Willingham: Cath Placed During This Visit: yes Urinary Catheter Date of Insertion: 06/20/21 Urinary Catheter Time of Insertion: 12:00 Data : 06/20/21 06:14 06/20/21 06:14 A&P Assessment and plan (1) Pleural effusion: Status: Acute (2) Diastolic heart failure: Status: Acute (3) Acute exacerbation of chronic obstructive airways disease: Status: Acute (4) Acute on chronic respiratory failure with hypoxia and hypercapnia: Status: Acute (5) Chronic respiratory failure with hypoxia: Status: Acute (6) Chronic hypercapnic respiratory failure: Status: Chronic Additional A&P Information acute on chronic hypoxic hypercapnic respiratory failure This is related to underlying pulmonary fusion, polypharmacy, obesity hypoventilation Patient is stating that he does have BiPAP machine at home and he was compliant He did not notice any fever or chest pain He has been compliant with his Coumadin It is therapeutic To relieve his symptoms plan is to get right-sided thoracentesis once INR is better Currently doing well on BiPAP Abdominal pannus cellulitis continue antifungal, I did not appreciate any purulence Venous stasis dermatitis Full code A. fib without RVR continue sotalol Cardiac diet Patient is therapeutic we will not need DVT prophylaxis in anticipation of surgery Attestations Medical Necessity Statement*: Continue medical management Time Spent in Patient Care: less than 15 minutes Coding Level of Care Code Acute Health Safety Coordinator for Chg Fwd Diagnoses Pleural effusion J90 Diastolic heart failure I50.30 Acute exacerbation of chronic obstructive airways disease J44.1 Acute on chronic respiratory failure with hypoxia and hypercapnia J96.21; J96.22 Chronic respiratory failure with hypoxia J96.11 Chronic hypercapnic respiratory failure J96.12
[2021-06-20 14:59] LABS: Coronavirus Test Green County Not Detected
[2021-06-20] MEDS: bisacodyl 10 mg Supp PR (15:03)
--- NOTE | 2021-06-20 17:04 | ECG_ITS ---
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: : 1955 Requested By: Logan Morton Order Number: [id number] Reading MD: LOGAN MCADAMS Measurements Intervals Catarina Rate: 76 P: 143 MA: 244 QRS: -18 QRSD: 113 T: 32 QT: 406 QTc: 457 Interpretive Statements SINUS RHYTHM WITH FIRST DEGREE AV BLOCK MODERATE INTRAVENTRICULAR CONDUCTION DELAY [110+ ms QRS DURATION] MODERATE ST DEPRESSION [0.05+ mV ST DEPRESSION] Compared to ECG 06/19/2021 17:21:52 NO SIG CHANGE Electronically Signed On 06-20-2021 18:52:28 JAVA LEAD ARCHITECT by LOGAN MCADAMS [email or web address]
[2021-06-20 17:14] LABS: ABG PCO2 92.4 mmHg (35-45)
[2021-06-20 18:17] LABS: Magnesium 1.8 mg/dL (1.7-2.3)
[2021-06-21] VITALS (12 sets, daily range): BP systolic 122–160; BP diastolic 66–87; PULSE 59–94; RESP 16–33; TEMP 36.1–37.2; O2SAT 92–97
[2021-06-21] MEDS: HYDROcodone-acetaminophen 10-325 mg Tablet 1 TAB PO ×4 (02:52→22:28)
[2021-06-21] MEDS: ipratropium-albuterol 3 mL Neb INHALATION ×4 (03:47→21:06)
[2021-06-21 04:07] LABS: ABG PH Result 7.45 (7.35-7.45); Arterial Blood Gas Hematocrit 31.4 % (42-52); Blood Gas Allen Test Pos; Blood Gas Sample Site Radial, left; Blood Gas Sample Type Arterial; HCO3 ABG 44.8 mmol/L (22-26)
[2021-06-21 06:31] LABS: INR 3.51 (0.8-1.2)
[2021-06-21 06:36] LABS: Basophils % 0.1 %; Hematocrit 31.7 % (42.0-52.0); Hemoglobin 9.6 g/dL (11.7-16.6); Lymphocytes # 0.6 10^3/uL (0.8-4.8); Lymphocytes % 8.9 %; Mean Corpuscular HGB Conc 30.3 g/dL (30.0-36.0); Mean Corpuscular Hemoglobin 27.2 pg (28.0-34.0); Mean Corpuscular Volume 89.8 fl (80-94); Mean Platelet Volume 10.4 fL (7.4-10.4); Monocytes # 0.3 10^3/uL (0.2-0.9); Monocytes % 4.2 %; Neutrophils % 86.5 %; Nucleated Red Blood Cells % 0 %; Platelet Count 290 10^3/cmm (130-400); Red Blood Count 3.53 10^6/uL (4.1-5.3); Red Cell Distribution Width 16.1 % (12.1-15.1); White Blood Count 6.7 10^3/uL (4.0-10.0)
[2021-06-21 06:40] LABS: Blood Urea Nitrogen 16 mg/dL (8-23); Calcium 8.8 mg/dL (8.5-10.5); Carbon Dioxide 35 mmol/L (22-29); Chloride 95 mmol/L (98-107); Glomerular Filtration Rate 167.4 mL/min (90-130); Glucose 129 mg/dL (65-115); Osmolality Calculated 295 mOsm/kg (285-295); Sodium 141 mmol/L (136-145)
[2021-06-21] MEDS: budesonide 0.5 mg/2 mL Neb INHALATION ×2 (08:51→21:06)
[2021-06-21] MEDS: benzonatate 100 mg Capsule PO (09:31)
[2021-06-21] MEDS: PARoxetine 20 mg Tablet PO (09:32)
[2021-06-21] MEDS: lisinopril 10 mg Tablet PO (09:32)
[2021-06-21] MEDS: tamsulosin 0.4 mg Capsule PO (09:32)
[2021-06-21] MEDS: sotalol 80 mg Tablet 60 MG PO (09:32)
[2021-06-21] MEDS: metOLazone 5 MG Tablet PO (09:32)
[2021-06-21] MEDS: pantoprazole DR 40 mg Tablet PO (09:33)
[2021-06-21] MEDS: aspirin 81 mg Chew Tablet PO (09:33)
[2021-06-21] MEDS: sennosides-docusate Tablet 2 TAB PO ×2 (09:33→17:19)
--- NOTE | 2021-06-21 09:41 | PM.PN ---
Subjective Subjective: Interval history: Patient feeling remarkably well Awake and alert Wanted to eat breakfast Negative balance Plan to discharge him tomorrow, he will not interested in thoracentesis INR still therapeutic Vitals/I&O/Wt Last Vital Signs Temp 98.7 F 06/21/21 07:27 Pulse 94 06/21/21 09:12 Resp 33 H 06/21/21 09:12 BP 131/66 06/21/21 07:27 Pulse Ox 92 06/21/21 09:12 06/20/21 06/21/21 06/21/21 22:59 06:59 14:59 Intake Total 120 / 360 120 / 120 Output Total 1900 / 3000 Balance 120 / -740 -1900 / -2640 120 / 120 Weight last 48 hrs Weight 197.313 kg Weight 197.313 kg Physical Exam Narrative: EXAM NARRATIVE: Patient in semi-Thomas position On AVAPS Awake and alert Nonfocal neuro exam Noted skin wrinkling Venous dermatitis Lymphedema S1, S2 variable Nonfocal neuro exam Abdomen soft with no signs of peritonitis, abdominal pannus with cellulitis, and open wound right abdominal pannus Willingham catheter draining concentrated urine He will be put on 3 L Urinary Catheter Management^: Willingham: Cath Placed During This Visit: yes Reason for Continuing Indwelling Catheter: Accurate Measurement of Urinary Output in Critically Ill Patients Urinary Catheter Date of Insertion: 06/20/21 Urinary Catheter Time of Insertion: 12:00 Data : 06/21/21 05:27 06/21/21 05:27 A&P Assessment and plan (1) Pleural effusion: Status: Acute (2) Diastolic heart failure: Status: Acute (3) Acute exacerbation of chronic obstructive airways disease: Status: Acute (4) Acute on chronic respiratory failure with hypoxia and hypercapnia: Status: Acute (5) Hypersomnia: Status: Chronic (6) Chronic hypercapnic respiratory failure: Status: Chronic Additional A&P Information Plan is to keep diuresing him with IV Lasix today for next 24 hours, he is showing good response, continue using AVAPS in between his meals and overnight Discontinue IV steroids Continue tamsulosin Patient uses trilogy of oxygen at baseline, follows up with Dr. Patel as outpatient Bicarb level seems to be at baseline We will discontinue metolazone tomorrow Cardiac consistent carb diet Full code DVT prophylaxis: Currently he is therapeutic, he is not interested in thoracentesis Attestations Medical Necessity Statement*: Discharge tomorrow Time Spent in Patient Care: less than 15 minutes Coding Level of Care Code Acute Interlocking Tower Operator for Chg Fwd Diagnoses Pleural effusion J90 Diastolic heart failure I50.30 Acute exacerbation of chronic obstructive airways disease J44.1 Acute on chronic respiratory failure with hypoxia and hypercapnia J96.21; J96.22 Hypersomnia G47.10 Chronic hypercapnic respiratory failure J96.12
[2021-06-21] MEDS: sennosides 8.6 mg Tablet 17.2 MG PO (22:30)
[2021-06-22] VITALS (16 sets, daily range): BP systolic 113–129; BP diastolic 66–79; PULSE 55–88; RESP 16–30; TEMP 36.4–36.6; O2SAT 90–97
[2021-06-22] MEDS: FUROsemide 40 mg Tablet 60 MG PO ×2 (01:38→12:06)
[2021-06-22] MEDS: ipratropium-albuterol 3 mL Neb INHALATION ×4 (02:58→21:26)
[2021-06-22] MEDS: HYDROcodone-acetaminophen 10-325 mg Tablet 1 TAB PO ×4 (03:46→22:22)
[2021-06-22 05:38] LABS: Basophils % 0.1 %; Hematocrit 32.4 % (42.0-52.0); Hemoglobin 9.9 g/dL (11.7-16.6); Lymphocytes # 0.9 10^3/uL (0.8-4.8); Lymphocytes % 12.1 %; Mean Corpuscular HGB Conc 30.6 g/dL (30.0-36.0); Mean Corpuscular Hemoglobin 27.7 pg (28.0-34.0); Mean Corpuscular Volume 90.8 fl (80-94); Monocytes # 0.9 10^3/uL (0.2-0.9); Monocytes % 11.1 %; Neutrophils # 5.91 10^3/uL (1.8-7.7); Neutrophils % 76.3 %; Nucleated Red Blood Cells % 0 %; Platelet Count 285 10^3/cmm (130-400); Red Blood Count 3.57 10^6/uL (4.1-5.3); Red Cell Distribution Width 16.1 % (12.1-15.1); White Blood Count 7.8 10^3/uL (4.0-10.0)
[2021-06-22 05:38] LABS: Base Excess VBG 16.9 mmol/L (-3.0-3.0); Blood Gas Sample Type Venous; HCO3 VBG 42.6 mmol/L (24-28); Oxygen Device BIPAP; pH VBG 7.49 (7.32-7.42)
--- NOTE | 2021-06-22 05:41 | PC.NURSE ---
SHIFT SUMMARY Has rested well tonight. Received po Hydrocodone for c/o back pain. Has been on BIPAP all night and has nesha well. Cont O2 sat monitor has shown sat to remain in 91-94% range every time in room to check pt. Pt is very obese. Pleasant and says is hoping to go home soon. Had very good urine output this shift. Dr was called to get IV Lasix changed to po due to no IV access. Pt says IV was removed yesterday and wasn't going to be restarted
[2021-06-22 05:49] LABS: INR 2.26 (0.8-1.2)
[2021-06-22 05:57] LABS: Anion Gap 12.6 (5-19); Blood Urea Nitrogen 16 mg/dL (8-23); Carbon Dioxide 36 mmol/L (22-29); Chloride 92 mmol/L (98-107); Glomerular Filtration Rate 167.4 mL/min (90-130); Glucose 116 mg/dL (65-115); Osmolality Calculated 286 mOsm/kg (285-295); Potassium 3.6 mmol/L (3.5-5.1); Sodium 137 mmol/L (136-145)
[2021-06-22] MEDS: aspirin 81 mg Chew Tablet PO (07:59)
[2021-06-22] MEDS: lisinopril 10 mg Tablet PO (07:59)
[2021-06-22] MEDS: tamsulosin 0.4 mg Capsule PO (08:00)
[2021-06-22] MEDS: pantoprazole DR 40 mg Tablet PO (08:00)
[2021-06-22] MEDS: sotalol 80 mg Tablet 60 MG PO (08:00)
[2021-06-22] MEDS: PARoxetine 20 mg Tablet PO (08:00)
[2021-06-22] MEDS: sennosides-docusate Tablet 2 TAB PO ×2 (08:00→17:52)
[2021-06-22] MEDS: metOLazone 5 MG Tablet PO (08:02)
[2021-06-22] MEDS: budesonide 0.5 mg/2 mL Neb INHALATION ×2 (08:59→21:25)
--- NOTE | 2021-06-22 09:11 | P.PN_ITS ---
Subjective Subjective: Interval history: Patient quickly desaturates once his BiPAP mask is removed, I put him on AVAPS, requested RT to put him on high flow nasal cannula and let him eat, plan to do right-sided thoracentesis his INR today is 2.2, will give him vitamin K, will request IR for thoracentesis tomorrow Is not ready to be discharged, he does not want to go to any fpc Vitals/I&O/Wt Last Vital Signs Temp 98 F 06/22/21 07:44 Pulse 69 06/22/21 07:44 Resp 18 06/22/21 07:44 BP 127/68 06/22/21 07:44 Pulse Ox 95 06/22/21 07:44 06/21/21 06/22/21 06/22/21 22:59 06:59 14:59 Intake Total 240 / 480 300 / 780 Output Total 1200 / 1200 2100 / 3300 Balance -960 / -720 -1800 / -2520 Weight last 48 hrs Weight 197.313 kg Physical Exam Narrative: EXAM NARRATIVE: Patient laying semi-Thomas position Quickly desaturates as soon as BiPAP mask is taken off No active respiratory distress No active chest pain Skin wrinkling noted Adequate urine output Venous stasis dermatitis Obesity hypoventilation EOMI, PERRLA Nonfocal neuro exam Distended abdomen, with obesity Willingham catheter draining yellow-colored urine Urinary Catheter Management^: Willingham: Cath Placed During This Visit: yes Reason for Continuing Indwelling Catheter: Acute Urinary Retention or Obstruction Urinary Catheter Date of Insertion: 06/20/21 Urinary Catheter Time of Insertion: 12:00 Data : 06/22/21 05:28 06/22/21 05:28 A&P Assessment and plan (1) Pleural effusion: Status: Acute (2) Diastolic heart failure: Status: Acute (3) Acute exacerbation of chronic obstructive airways disease: Status: Acute (4) Acute on chronic respiratory failure with hypoxia and hypercapnia: Status: Acute (5) Chronic respiratory failure with hypoxia: Status: Acute Additional A&P Information Will get CTA chest rule out PE Still therapeutic Will give vitamin K after ruling out PE, and planning for right-sided thoracentesis He gets hypoxic as soon as we take off his BiPAP mask currently on high flow nasal cannula to give him a break and let him eat heated high flow 40 L 55% Diastolic heart failure exacerbation, continue IV diuretics, monitor for contraction alkalosis bicarb 36 potassium 3.6, replenish potassium, check mag level tomorrow Full code Cardiac diet No DVT prophylaxis INR 2.2 Attestations Medical Necessity Statement*: Continue medical management Time Spent in Patient Care: 16 - 35 minutes Coding Level of Care Code Acute Storeroom Keeper for Chg Fwd Diagnoses Pleural effusion J90 Diastolic heart failure I50.30 Acute exacerbation of chronic obstructive airways disease J44.1 Acute on chronic respiratory failure with hypoxia and hypercapnia J96.21; J96.22 Chronic respiratory failure with hypoxia J96.11
--- NOTE | 2021-06-22 09:15 | CT_ITS ---
WS: [id number] CT CHEST ANGIOGRAPHY WITH REFORMATS HISTORY: HYPOXIA TECHNIQUE: Contiguous axial images are obtained through the chest during arterial injection of intrav enous contrast. Images are reconstructed to evaluate the pulmonary arteries. MIP imaging also reviewe d. All CT scans at [facility] use at least one of these dose optimization techniques: automat ed exposure control; mA and/or kV adjustment per patient size (includes targeted exams where dose is matched to clinical indication); or iterative reconstruction. CONTRAST: Omnipaque 350; approximately 200 mL IV. DLP: 3330.83 mGy.cm COMPARISON: None available. Suboptimal opacification of the pulmonary artery. Centrally there is no pulmonary embolism. This stud y is suboptimal due to body habitus and beam hardening artifact. No emboli are appreciated to the seg mental branches. Beyond the segmental branches the opacification is limited. Small layering RIGHT pleural effusion with compressive atelectasis. There is a very tiny amount of fl uid at the LEFT lung base. There is compressive atelectasis in the lower lung haro bilaterally. Mil d pulmonary edema. Heart size is moderately enlarged. Moderate plaque within the coronary arteries. N o pericardial effusion or RIGHT heart strain. Mild atherosclerosis aorta. 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 No abnormality in the visualized upper abdomen. Thoracic spo ndylosis. CT/CT angio chest PE protcl [id number] IMPRESSION: 1. Limited evaluation of pulmonary artery due to body habitus. Centrally there is no pulmonary embolism. 2. No RIGHT heart strain. 3. Small layering RIGHT pleural effusion with bilateral lower lobe atelectasis . 4. Mild pulmonary edema. 5. Coronary artery atherosclerotic plaque.
[2021-06-22 09:34] LABS: D Dimer 0.57 ug/mIFEU (0-0.59)
[2021-06-22] MEDS: potassium chloride ER 20 mEq Tablet 40 MEQ PO (09:59)
--- NOTE | 2021-06-22 11:52 | PC.SOCIAL ---
Pg 2 IMM Explained to pt Pg 2 IMM. No questions voiced. Provided pt a copy. Initialed, dated, & timed a copy & placed in chart.
[2021-06-22] MEDS: iohexol 350 mg/mL 100 mL Btl IV ×3 (12:36→13:03)
[2021-06-22] MEDS: sodium chloride 0.9% 1,000 ML 250 ML IV (13:05)
[2021-06-22] MEDS: phytonadione (ADULT) 5 MG in sodium chloride 0.9% 50 ML 151.5 MG IV (20:39)
--- NOTE | 2021-06-22 21:32 | PC.RESP ---
Found patient on Heated High Flow through V60
[2021-06-23] VITALS (13 sets, daily range): BP systolic 97–125; BP diastolic 62–76; PULSE 62–88; RESP 17–26; TEMP 36.4–36.8; O2SAT 87–97
--- NOTE | 2021-06-23 | US_ITS ---
WS: [id number] Ultrasound chest, limited. HISTORY: Pleural effusion. Evaluate for thoracentesis. There is a small layering RIGHT pleural effusion. After explaining the procedure with risks to the pa cheyanne's he has declined the thoracentesis at this time. Patient describes his symptoms as improving a nd would rather wait a few more days to see if improvement continues before proceeding with a thorace ntesis. US/US chest [id number] IMPRESSION: 1. Small layering RIGHT pleural effusion. 2. Patient declined thoracentesis today as he is feeling better and would like to delay this procedure to see if improvement continues.
[2021-06-23] MEDS: FUROsemide 40 mg Tablet 60 MG PO (01:36)
[2021-06-23] MEDS: ipratropium-albuterol 3 mL Neb INHALATION ×2 (03:07→08:29)
[2021-06-23] MEDS: HYDROcodone-acetaminophen 10-325 mg Tablet 1 TAB PO ×3 (04:04→15:51)
[2021-06-23 05:03] LABS: Base Excess VBG 21.1 mmol/L (-3.0-3.0); HCO3 VBG 48.1 mmol/L (24-28); Oxygen Device HAG; PO2 VBG 42.1 mmHg (25-40); Venous Blood Gas Hematocrit 33.5 % (42-52); pH VBG 7.47 (7.32-7.42)
[2021-06-23 05:04] LABS: Blood Gas Sample Type Venous
[2021-06-23 05:05] LABS: PCO2 VBG 66.1 mmHg (41-51)
[2021-06-23 05:35] LABS: INR 1.48 (0.8-1.2)
[2021-06-23 05:43] LABS: Lactate Dehydrogenase 235 U/L (135-225)
[2021-06-23 05:46] LABS: Anion Gap 16.4 (5-19); Blood Urea Nitrogen 16 mg/dL (8-23); Calcium 8.9 mg/dL (8.5-10.5); Carbon Dioxide 37 mmol/L (22-29); Chloride 88 mmol/L (98-107); Glomerular Filtration Rate 135.6 mL/min (90-130); Glucose 85 mg/dL (65-115); Magnesium 1.6 mg/dL (1.7-2.3); Osmolality Calculated 286 mOsm/kg (285-295); Potassium 3.4 mmol/L (3.5-5.1); Sodium 138 mmol/L (136-145)
[2021-06-23] MEDS: budesonide 0.5 mg/2 mL Neb INHALATION (08:29)
[2021-06-23] MEDS: lisinopril 10 mg Tablet PO (09:10)
[2021-06-23] MEDS: sotalol 80 mg Tablet 60 MG PO (09:10)
[2021-06-23] MEDS: tamsulosin 0.4 mg Capsule PO (09:10)
[2021-06-23] MEDS: PARoxetine 20 mg Tablet PO (09:10)
[2021-06-23] MEDS: sennosides-docusate Tablet 2 TAB PO (09:10)
[2021-06-23] MEDS: pantoprazole DR 40 mg Tablet PO (09:10)
[2021-06-23] MEDS: potassium chloride ER 20 mEq Tablet 40 MEQ PO (09:10)
--- NOTE | 2021-06-23 09:17 | PM.PN ---
Subjective Subjective: Interval history: INR reversed, 1.4 today, spoke with Dr. Barajas who is planning for thoracentesis today Patient has been on aspirin until yesterday Plan to monitor him after thoracentesis for 1 more day Patient is still requiring 50 L of oxygen via heated high flow, after thoracentesis we will see if he is doing well or can be transitioned down to 5 to 6 L nasal cannula We will remove Willingham catheter at the time of discharge Patient is in negative balance with signs of contraction alkalosis, de-escalate diuretic regimen Vitals/I&O/Wt Last Vital Signs Temp 98.3 F 06/23/21 07:37 Pulse 75 06/23/21 08:33 Resp 18 06/23/21 08:33 BP 123/76 06/23/21 07:37 Pulse Ox 93 06/23/21 08:33 06/22/21 06/23/21 06/23/21 22:59 06:59 14:59 Intake Total 1450.5 / 1810.5 240 / 2050.5 Output Total 3650 / 6500 4200 / 12107 Balance -2199.5 / -4689.5 -3960 / -8649.5 Physical Exam Narrative: EXAM NARRATIVE: Morbidly obese male Currently on heated high flow 50% 40 L Morbidly obese Skin wrinkling noted Venous stasis dermatitis Lymphedema Abdomen soft No active chest pain Awake and alert Nonfocal exam Urinary Catheter Management^: Willingham: Cath Placed During This Visit: yes Reason for Continuing Indwelling Catheter: Acute Urinary Retention or Obstruction Urinary Catheter Date of Insertion: 06/20/21 Urinary Catheter Time of Insertion: 12:00 Data : 06/22/21 05:28 06/23/21 04:53 A&P Assessment and plan (1) Diastolic heart failure: Status: Acute (2) Pleural effusion: Status: Acute (3) Acute exacerbation of chronic obstructive airways disease: Status: Acute (4) Hypersomnia: Status: Chronic (5) Acute on chronic respiratory failure with hypoxia and hypercapnia: Status: Acute Additional A&P Information Acute COPD exacerbation due to congestive heart failure exacerbation Underlying pickwickian syndrome Morbid obesity Aggressive diuretics with signs of contraction alkalosis Negative fluid balance Wean off oxygen from heated high flow to 5 to 6 L nasal cannula which is his home requirement, he does use AVAPS at home Spoke with Dr. Barajas who will attempt thoracentesis Recurrent admissions secondary to same complaint, I requested patient to increase his diuretic regimen at home and use AVAPS in case of worsening of shortness of breath, sodium restricted, [id number] to diet He will continue Coumadin from tomorrow 12 hours after the thoracentesis He was given vitamin K to reverse his INR Hypokalemia, hypomagnesium : Repleted Full code Cardiac diet DVT prophylaxis: Start Coumadin from tomorrow Attestations Medical Necessity Statement*: dc in 48hrs Time Spent in Patient Care: 16 - 35 minutes Coding Level of Care Code Acute Internet Marketing Analyst for Aamirg Fwd Diagnoses Diastolic heart failure I50.30 Pleural effusion J90 Acute exacerbation of chronic obstructive airways disease J44.1 Hypersomnia G47.10 Acute on chronic respiratory failure with hypoxia and hypercapnia J96.21; J96.22
--- NOTE | 2021-06-23 12:32 | PM.DCS ---
Discharge Providers Date of Admission: 06/19/21 22:02 Date of Discharge: June 23, 2021 Attending Provider at Admission: Ginna Camarillo MD Attending Provider at Discharge: Logan Morton MD Primary Care Provider: Robert Mustafa Diagnoses at Discharge Discharge Diagnosis (1) Diastolic heart failure: Status: Acute (2) Pleural effusion: Status: Acute (3) Acute exacerbation of chronic obstructive airways disease: Status: Acute (4) Hypersomnia: Status: Chronic (5) Acute on chronic respiratory failure with hypoxia and hypercapnia: Status: Acute Reason for Visit Reason for Visit: SOB Hospital Course Hospital Course History of Present Illness by Dr Camarillo:- Nhan Sol is a 66 year old male past medical history of chronic hypoxic hypercarbia respiratory failure, on 2 to 3 L nasal cannula, obesity hypoventilation syndrome on AVAPS, morbid obesity, atrial fibrillation on Coumadin, who presents to [facility] due to complaints of shortness of breath. Upon arrival to hospital patient's Arterial blood gases showed a pH of 7.28,pc02 pending, PO2 of 140 and a bicarb of 41.9. In Er patient was given iv steroids, duoneb treatment and placed on bipap. Chest x-ray shows moderate volume of right pleural effusion and stelactasis with cardiomegaly Hospital course Patient was admitted for management and evaluation of hypoxic hypercarbic respiratory failure, at home uses 4 to 5 L of nasal cannula in the morning and trilogy/AVAPS at night. He has been using 40 mg of Lasix twice a day. Lung imaging did not show pulmonary embolism, it was consistent with pulmonary edema. Clinically he does look fluid overloaded. He was diuresed aggressively during his hospitalization. More than 12 L urine output noted during hospitalization. He remained in negative balance. I reversed his INR with vitamin K and requested right-sided thoracentesis, on the day of procedure he refused thoracentesis. He was requesting to be discharged home before [place]. On 06/23 he was doing fine on 4-5 L nasal cannula. No signs of pneumonia, will remove Willingham catheter before his discharge. To bridge him with Lovenox I will give him 200 mg of therapeutic dose of Lovenox before discharge, he will resume his Coumadin starting today. I have increased his Lasix to 80 mg in the morning and 20 mg at night. I have counseled him to use sodium restricted, fluid restricted diet 1200 mL/day and increase Lasix in case of weight gain and worsening orthopnea PND. He does have pickwickian syndrome. I am afraid with recurrent admissions to the hospital he might become BiPAP dependent. For now he is refusing [facility] and wants to go back home. RT evaluated him this morning, RT notified me that his pulse ox was not correctly placed which was replaced, he was weaned off from heated high flow to 5 L nasal cannula which is his home requirement. He is able to ambulate and maintain his O2 saturation. Physical Exam Narrative: EXAM NARRATIVE: Morbidly obese male Currently on NC 5L Morbidly obese Skin wrinkling noted Venous stasis dermatitis Lymphedema Abdomen soft No active chest pain Awake and alert Nonfocal exam Urinary Catheter Management^: Willingham: Cath Placed During This Visit: yes Reason for Continuing Indwelling Catheter: Acute Urinary Retention or Obstruction Urinary Catheter Date of Insertion: 06/20/21 Urinary Catheter Time of Insertion: 12:00 Discharge Data Data Completed and Pending: Completed Studies During Hospitalization Category Date Time Status CT angio chest PE protcl [id number] Urge nt Cat Scan 06/22/21 09:15 Completed XR chest 1V edna ble [id number] Urgent Exams 06/19/21 17:10 Completed [place] chest [id number] Ro utine Ultrasound 06/23/21 Completed Pending at discharge Category Date Time Status XR chest 1V edna ble [id number] AM LABS Exams 06/24/21 04:00 Ordered Arterial Blood Ga s W/O Coox AM LABS Lab 06/21/21 03:55 Results Basic Metabolic P mikey AM LABS Lab 06/24/21 04:00 Ordered Cell Count w Diff Pleural Fld Routi ne Lab 06/22/21 09:17 Uncollected Complete Blood Co unt w/Auto AM LABS Lab 06/24/21 04:00 Ordered Glucose Pleural F luid Routine Lab 06/22/21 09:17 Uncollected LDH Pleural Fluid Routine Lab 06/22/21 09:17 Uncollected Magnesium AM LABS Lab 06/24/21 04:00 Ordered Prothrombin Time INR AM LABS Lab 06/24/21 04:00 Ordered Right Pleural Flu id Analysis Routin e Lab 06/22/21 09:17 Uncollected Venous Blood Gas AM LABS Lab 06/22/21 05:24 Results Venous Blood Gas AM LABS Lab 06/23/21 04:48 Results pH Pleural Fluid Routine Lab 06/22/21 18:36 Uncollected Labs from last 24 hours 06/23/21 06/23/21 06/23/21 04:53 04:53 04:53 PT 18.30 H INR 1.48 H Specimen Type Sample Site Ronald Test VBG pH VBG pCO2 VBG pO2 VBG HCO3 VBG Base Excess VBG Hematocrit O2 Delivery Device O2 Liters/Min FiO2 Associate Professor Of Geology ID Sodium 138 Potassium 3.4 L Chloride 88 L Carbon Dioxide 37 H Anion Gap 16.4 BUN 16 Creatinine 0.6 L GFR Calculation 135.6 H Glucose 85 Calculated Osmolal ity 286 Calcium 8.9 Magnesium 1.6 L Lactate Dehydrogen ase 235 H 06/23/21 04:48 PT INR Specimen Type Venous Sample Site Pending Ronald Test N/a VBG pH 7.47 H VBG pCO2 66.1 H* VBG pO2 42.1 H VBG HCO3 48.1 H VBG Base Excess 21.1 H VBG Hematocrit 33.5 L O2 Delivery Device Hag O2 Liters/Min 40.0 FiO2 50.0 Associate Professor Of Geology ID Buttr Sodium Potassium Chloride Carbon Dioxide Anion Gap BUN Creatinine GFR Calculation Glucose Calculated Osmolal ity Calcium Magnesium Lactate Dehydrogen ase Vitals: Last Vital Signs Temp 97.8 F 06/23/21 11:42 Pulse 62 06/23/21 11:42 Resp 17 06/23/21 11:42 BP 97/62 06/23/21 11:42 Pulse Ox 92 06/23/21 11:42 Discharge Plan Discharge Patient Disposition: Home Condition: Fair Prescriptions: New Lasix 80 mg tablet 80 mg PO .am Qty: 60 RF: 3 Lasix 20 mg tablet 20 mg PO .Pm Qty: 60 RF: 2 potassium chloride 10 mEq capsule, extended release 10 meq PO DAILY Qty: 30 RF: 0 Continued omeprazole 40 mg Capsule,Delayed Release(Dr/Ec) 40 mg PO QAM RF: 0 hydrocodone-acetaminophen 10-325 mg tablet 1 tab PO Q6H PRN (Reason: Pain) RF: 0 tamsulosin 0.4 mg Capsule 0.4 mg PO QAM RF: 0 paroxetine HCl 20 mg Tablet 20 mg PO DAILY RF: 0 multivitamin Tablet 1 tab PO DAILY RF: 0 tizanidine 2 mg tablet 2 mg PO BEDTIME RF: 0 sotalol 120 mg tablet 120 mg PO Q12H RF: 0 acetaminophen 500 mg Tablet 500 - 1,000 mg PO Q4H PRN (Reason: Pain) RF: 0 warfarin 5 mg tablet 5 mg PO BID RF: 0 nystatin-triamcinolone 100,000-0.1 unit/g-% cream 1 applic TOPICAL QID RF: 0 Discontinued furosemide 40 mg Tablet 40 mg PO BID RF: 0 Discharge Orders: Discharge Order (Routine); Ordered 06/23/21 Ordered By: Logan Morton Referrals: Robert Mustafa [Primary Care Provider] - 06/28/21 11:40 am Discharge Diet: Cardiac Discharge Activity: Increase activity as tolerated Patient Instructions: Opioid Safety Activity Restrictions/Additional Instructions: Please start taking Coumadin from today I have increased her Lasix to 80 mg in the morning and then you can take 20 mg at night in case of further worsening of shortness of breath and weight gain you can increase your Lasix dose to 80 mg twice a day Keep using trilogy in case of worsening shortness of breath he can start using trilogy in the daytime as well Discharge Attestations Time Spent in Discharge Care*: less than 30 min Status at Discharge: Cognitive status at discharge: cognitively intact, Behavioral status at discharge: cooperative, Quality Metrics Clinical Quality Measures During this hospital stay, did patient experience: None Coding Level of Care Code Acute g DC note Diagnoses Diastolic heart failure I50.30 Pleural effusion J90 Acute exacerbation of chronic obstructive airways disease J44.1 Hypersomnia G47.10 Acute on chronic respiratory failure with hypoxia and hypercapnia J96.21; J96.22
[2021-06-23] MEDS: enoxaparin 150 mg/mL Syringe SUBCUT (14:36)
== END 2021-06-23 16:09 | disposition home or self-care (01) | DRG 291 ==
LOC: ER 21:44 → ER IP 22:03 → MEDSURG 06-20 09:56
PROVIDERS: Emergency Medicine; Admitting Provider Student in an Organized Health Care Education/Training Program; Emergency Provider Emergency Medicine; PCP Family Medicine; Visit Provider Internal Medicine
DX: I11.0 Hypertensive heart disease with heart failure (principal); I50.33 Acute on chronic diastolic (congestive) heart failure; J96.22 Acute and chronic respiratory failure with hypercapnia; J96.21 Acute and chronic respiratory failure with hypoxia; J44.1 Chronic obstructive pulmonary disease with (acute) exacerbation; E66.2 Morbid (severe) obesity with alveolar hypoventilation; Z68.43 Body mass index [BMI] 50.0-59.9, adult; L03.311 Cellulitis of abdominal wall; J90 Pleural effusion, not elsewhere classified; Z99.81 Dependence on supplemental oxygen; I48.91 Unspecified atrial fibrillation; E11.9 Type 2 diabetes mellitus without complications; K21.9 Gastro-esophageal reflux disease without esophagitis; Z87.01 Personal history of pneumonia (recurrent); Z87.891 Personal history of nicotine dependence; Z79.01 Long term (current) use of anticoagulants; G47.10 Hypersomnia, unspecified; Z99.89 Dependence on other enabling machines and devices
CPT/HCPCS: 36415; 36600; 51702; 71045; 71275; 76604; 80048; 80053; 82803; 82805; 83615; 83735; 83880; 84145; 84484; 85025; 85378; 85610; 87426; 87635; 93005; 94640; 94660; 94664; 96372; 96374; 96376; 99285; J1650; J1940; J2930; J3430; J3475; J3490; J7030; J7611; J7626; Q9967

== ENCOUNTER 2021-08-18 20:35 | Inpatient (IN) | payer MEDICARE, SELFPAY ==
--- NOTE | 2021-08-18 20:36 | XRR_ITS ---
PROCEDURE INFORMATION: Exam: XR Chest Exam date and time: 08/18/2021 8:36 PM Age: 66 years old Clinical indication: Chest wall pain; Additional info: Cp TECHNIQUE: Imaging protocol: XR of the chest. Views: 1 view. COMPARISON: CR XR chest 1V portable [id number] 06/19/2021 5:35 PM FINDINGS: Lungs: Increased moderate to severe right basilar atelectasis and/or infiltrate and/or effusion. Increased left perihilar and left lower lobe pneumonia. Pleural spaces: Unremarkable. No pleural effusion. No pneumothorax. Heart/Mediastinum: Unremarkable. No cardiomegaly. Bones/joints: Unremarkable. XR/XR chest 1V portable [id number] IMPRESSION: 1. Increased moderate to severe right basilar atelectasis and/or infiltrate and/or effusion. 2. Increased left perihilar and left lower lobe pneumonia.
[2021-08-18 20:41] VITALS: BP 146/73; PULSE 72; RESP 26; TEMP 37.3; O2SAT 95; BMI 52.2
--- NOTE | 2021-08-18 20:43 | W.ED.SOB ---
HPI - SOB/Dyspnea General: Chief Complaint: Shortness of Breath/Dyspnea Stated Complaint: SOB CHF Time Seen by Provider: 08/18/21 20:36 Source: patient and EMS Mode of arrival: EMS Limitations: no limitations History of Present Illness: HPI Narrative: 66-year-old male has extensive history of morbid obesity along with congestive heart failure. He states that he has been having increasing dyspnea at home especially with exertion. States he feels like he is put on a lot of weight as well. He is on Lasix 80 at morning 20 at night. He denies any cough denies any fever he states he was desaturating at home with ambulation here he is 97% on his 4 L that he is at baseline he is in no distress currently. [facility] ED PFSH: Medical History Acute exacerbation of chronic obstructive airways disease Atrial fibrillation Chronic anticoagulation Chronic hypercapnic respiratory failure Chronic respiratory failure with hypoxia Cor pulmonale Diabetes mellitus, type II Diastolic heart failure GERD (gastroesophageal reflux disease) History of gastric ulcer with perforation Hypersomnia Hypertension Morbid obesity with BMI of 50.0-59.9, adult Obesity On home oxygen therapy 2-3 L Pneumonia Recurrent falls Respiratory failure with hypoxia and hypercapnia Surgical History History of esophagogastroduodenoscopy History of exploratory laparotomy for perforated gastric ulcer Family History Father Cancer lung Mother Asthma CAD (coronary artery disease) Sister Cerebral aneurysm Social History Smoking and tobacco status: former smoker Quit status (tobacco): has quit using tobacco Year quit tobacco: 1978 - PD x 7 Years Second hand smoke exposure: Yes Smoking risk assessment/counseling performed?: No Alcohol intake: current Alcohol intake frequency: few times a week Alcohol type: beer Counseling given: No Counseling given: No Lives independently: Yes Household members: family Marital status: Current occupational status: disabled Previous occupational history: history of working in [employer] History of recent travel: No Current gender identity: Male Physical Exam Const: COMMON NORMALS: patient oriented x3 and healthy appearing NUTRITIONAL APPEARANCE: obese HENMT: COMMON NORMALS: normocephalic and atraumatic HEAD & SCALP: normocephalic and atraumatic Eye: COMMON NORMALS: Equal, round and reactive pupils present and EOMs intact bilaterally PUPIL: Yes Equal, round and reactive pupils present Neck/C-Spine: COMMON NORMALS: full ROM and supple Chest: COMMONS NORMALS: normal inspection of the chest and normal palpation of entire chest wall Resp: COMMON NORMALS: normal respiratory effort, No retractions, No use of accessory muscles and clear to auscultation bilaterally AUSCULTATION: clear to auscultation bilaterally Cardio: COMMON NORMALS: regular rate, regular rhythm and No murmurs present (Cardio) RATE: regular rate RHYTHM: regular rhythm GI: COMMON NORMALS: Normal to inspection, nondistended, normoactive bowel sounds present, Soft to palpation, non-tender and no masses PALPATION: Yes Soft to palpation Extremity: COMMON NORMALS: full ROM NARRATIVE EXTREMITY EXAM: 2+ edema Neuro: COMMON NORMALS: patient oriented x3, moves all extremities and no focal motor deficits Psych: COMMON NORMALS: mental status grossly normal, Normal thought process present and cooperative THOUGHT PROCESS: Normal thought process present Skin: COMMON NORMALS: no rashes or lesions noted and no wounds GENERAL SKIN EXAM: no rashes or lesions noted Course Vital Signs: Vital signs: Vital Signs Temperature 99.1 F 08/18/21 20:41 Pulse Rate 73 08/18/21 22:36 Respiratory Rate 21 H 08/18/21 22:36 Blood Pressure 122/68 08/18/21 20:54 Pulse Oximetry 96 08/18/21 22:36 MDM - SOB/Dyspnea Medical Decision Making Patient presents here with shortness of breath likely from CHF exacerbation x-ray shows a possible pneumonia as well. He is not been taking his medicine is prescribed spoke to hospitalist will admit at this time. Lab Data : 08/18/21 21:39 08/18/21 21:39 Labs/Radiology: Radiology Impressions Chest X-Ray 08/18/21 20:36 IMPRESSION: 1. Increased moderate to severe right basilar atelectasis and/or infiltrate and/or effusion. 2. Increased left perihilar and left lower lobe pneumonia. Laboratory Results WBC 5.5 10^3/uL (4.0-10.0) 08/18/21 21:39 RBC 3.14 10^6/uL (4.1-5.3) L 08/18/21 21:39 Hgb 8.4 g/dL (11.7-16.6) L 08/18/21 21:39 Hct 30.3 % (42.0-52.0) L 08/18/21 21:39 MCV 96.5 fl (80-94) H 08/18/21 21:39 MCH 26.8 pg (28.0-34.0) L 08/18/21 21:39 MCHC 27.7 g/dL (30.0-36.0) L 08/18/21 21:39 RDW 17.6 % (12.1-15.1) H 08/18/21 21:39 Plt Count 282 10^3/cmm (130-400) 08/18/21 21:39 MPV 9.6 fL (7.4-10.4) 08/18/21 21:39 Neut % (Auto) 58.3 % 08/18/21 21:39 Lymph % (Auto) 23.1 % 08/18/21 21:39 [place] % (Auto) 12.3 % 08/18/21 21:39 Eos % (Auto) 5.4 % 08/18/21 21:39 Baso % (Auto) 0.7 % 08/18/21 21:39 Neut # (Auto) 3.22 10^3/uL (1.8-7.7) 08/18/21 21:39 Lymph # (Auto) 1.3 10^3/uL (0.8-4.8) 08/18/21 21:39 [place] # (Auto) 0.7 10^3/uL (0.2-0.9) 08/18/21 21:39 Eos # (Auto) 0.3 10^3/uL (0.0-0.8) 08/18/21 21:39 Baso # (Auto) 0.0 10^3/uL (0.0-0.1) 08/18/21 21:39 Nucleated RBC % (auto) 0 % 08/18/21 21:39 Nucleated RBCs # 0.0 /100WBC 08/18/21 21:39 PT 18.10 SECONDS (12.1-14.9) H 08/18/21 21:39 INR 1.46 (0.8-1.2) H 08/18/21 21:39 Specimen Type Arterial 08/18/21 21:32 Sample Site Radial, right 08/18/21 21:32 ABG pH 7.36 (7.35-7.45) 08/18/21 21:32 ABG pCO2 80.5 mmHg (35-45) H* 08/18/21 21:32 ABG pO2 60.6 mmHg (80.0-100.0) L 08/18/21 21:32 ABG HCO3 45.5 mmol/L (22-26) H 08/18/21 21:32 ABG Base Excess 17.4 mmol/L (-2.0-2.0) H 08/18/21 21:32 Ronald Test Pos 08/18/21 21:32 Hematocrit 27.5 % (42-52) L 08/18/21 21:32 O2 Delivery Device Nc 08/18/21 21:32 O2 Liters/Min 4.0 % 08/18/21 21:32 University Librarian ID Hensa 08/18/21 21:32 Sodium 136 mmol/L (136-145) 08/18/21 21:39 Potassium 4.6 mmol/L (3.5-5.1) 08/18/21 21:39 Chloride 90 mmol/L (98-107) L 08/18/21 21:39 Carbon Dioxide 41 mmol/L (22-29) H 08/18/21 21:39 Anion Gap 9.6 (5-19) 08/18/21 21:39 BUN 12 mg/dL (8-23) 08/18/21 21:39 Creatinine 0.5 mg/dL (0.7-1.2) L 08/18/21 21:39 GFR Calculation 167.4 mL/min (90-130) H 08/18/21 21:39 Glucose 118 mg/dL (65-115) H 08/18/21 21:39 Calculated Osmolality 283 mOsm/kg (285-295) L 08/18/21 21:39 Calcium 9.7 mg/dL (8.5-10.5) 08/18/21 21:39 Total Bilirubin 0.5 mg/dL (0.15-1.2) 08/18/21 21:39 AST 22 U/L (0-40) 08/18/21 21:39 ALT 11 U/L (0-41) 08/18/21 21:39 Alkaline Phosphatase 82 IU/L (40-130) 08/18/21 21:39 Troponin T Baseline 17 ng/L (0-15) H 08/18/21 21:39 NT-Pro-B Natriuret Pep 685 pg/mL (0-125) H 08/18/21 21:39 Total Protein 7.5 g/dL (6.6-8.7) 08/18/21 21:39 Albumin 3.7 g/dL (3.5-5.2) 08/18/21 21:39 Globulin 3.8 g/dL (1.3-4.6) 08/18/21 21:39 EKG Data EKG 1: I personally reviewed and interpreted this EKG as follows: EKG Interpretation Date: 08/18/21 EKG interpretation time: 20:54 Interpretation: nsr hr [address] or t wave abnormalities qrs 115 qts 397 Discharge Plan Discharge Patient Disposition: Admitted As Inpatient Clinical Impression: Congestive heart failure, Community acquired pneumonia Condition: Stable Coding Level of Care Code ED [employer] Rep for Chg Fwd Exam Comprehensive
[2021-08-18 20:54] VITALS: BP 122/68; PULSE 72; RESP 30; O2SAT 97
[2021-08-18] MEDS: FUROsemide 10 mg/mL SDV 10mL 80 MG IVP (21:33)
[2021-08-18 21:45] LABS: ABG PH Result 7.36 (7.35-7.45); Arterial Blood Gas Hematocrit 27.5 % (42-52); Base Excess ABG 17.4 mmol/L (-2.0-2.0); Blood Gas Allen Test Pos; Blood Gas Sample Type Arterial; HCO3 ABG 45.5 mmol/L (22-26); PO2 ABG 60.6 mmHg (80.0-100.0)
[2021-08-18 21:45] LABS: Basophils % 0.7 %; Eosinophils # 0.3 10^3/uL (0.0-0.8); Eosinophils % 5.4 %; Hematocrit 30.3 % (42.0-52.0); Hemoglobin 8.4 g/dL (11.7-16.6); Lymphocytes # 1.3 10^3/uL (0.8-4.8); Lymphocytes % 23.1 %; Mean Corpuscular HGB Conc 27.7 g/dL (30.0-36.0); Mean Corpuscular Hemoglobin 26.8 pg (28.0-34.0); Mean Corpuscular Volume 96.5 fl (80-94); Mean Platelet Volume 9.6 fL (7.4-10.4); Monocytes # 0.7 10^3/uL (0.2-0.9); Monocytes % 12.3 %; Neutrophils # 3.22 10^3/uL (1.8-7.7); Neutrophils % 58.3 %; Nucleated Red Blood Cells % 0 %; Platelet Count 282 10^3/cmm (130-400); Red Blood Count 3.14 10^6/uL (4.1-5.3); Red Cell Distribution Width 17.6 % (12.1-15.1); White Blood Count 5.5 10^3/uL (4.0-10.0)
[2021-08-18 21:46] LABS: Blood Gas Sample Site Radial, right; Oxygen Device NC
[2021-08-18 21:47] LABS: ABG PCO2 80.5 mmHg (35-45)
[2021-08-18 21:57] LABS: INR 1.46 (0.8-1.2)
[2021-08-18] MEDS: HYDROcodone-acetaminophen 7.5-325 mg Tablet 1 TAB PO (22:00)
[2021-08-18 22:08] LABS: Troponin(5th) Baseline 17 ng/L (0-15)
[2021-08-18 22:17] LABS: Alanine Aminotransferase 11 U/L (0-41); Albumin Level 3.7 g/dL (3.5-5.2); Alkaline Phosphatase 82 IU/L (40-130); Anion Gap 9.6 (5-19); Aspartate Amino Transferase 22 U/L (0-40); Blood Urea Nitrogen 12 mg/dL (8-23); Calcium 9.7 mg/dL (8.5-10.5); Chloride 90 mmol/L (98-107); Globulin 3.8 g/dL (1.3-4.6); Glomerular Filtration Rate 167.4 mL/min (90-130); Glucose 118 mg/dL (65-115); NT Pro B Type Natriuretic Pept 685 pg/mL (0-125); Osmolality Calculated 283 mOsm/kg (285-295); Potassium 4.6 mmol/L (3.5-5.1); Sodium 136 mmol/L (136-145); Total Bilirubin 0.5 mg/dL (0.15-1.2); Total Protein 7.5 g/dL (6.6-8.7)
[2021-08-18 22:25] LABS: Carbon Dioxide 41 mmol/L (22-29)
[2021-08-18] MEDS: cefTRIAXone 1,000 MG in sodium chloride 0.9% (plus) 50 ML 100 MG IV (22:35)
[2021-08-18 22:36] VITALS: PULSE 73; RESP 21; O2SAT 96
--- NOTE | 2021-08-18 22:36 | ECG_ITS ---
[facility] Test Date: 2021-08-18 Pat Name: Nhan Sol Department: Room: Gender: Male Lcpc: : 1955 Requested By: Acacia Caal Order Number: [id number] Sammie MD: Nuris Zuniga M.D. Measurements Intervals Nunda Rate: 73 P: 60 CT: 220 QRS: -29 QRSD: 115 T: 76 QT: 372 QTc: 410 Interpretive Statements SINUS RHYTHM WITH FIRST DEGREE AV BLOCK Compared to ECG 06/20/2021 17:23:24 Myocardial infarct finding now present Intraventricular conduction delay no longer present ST (T wave) deviation no longer present Electronically Signed On 08-19-2021 15:31:03 DAYTIME CAREGIVER by Nuris Zuniga M.D. [id number]
--- NOTE | 2021-08-18 22:38 | P.HP_ITS ---
Providers/Chief Complaint Admitting Physician: Tyshawn Carreon MD, hospitalist Primary Care Provider: Robert Mustafa Chief Complaint: SOB CHF History of Present Illness Nhan Sol is a 66 year old male who presents to the hospital with increasing shortness of breath, and increasing edema over the last 2 weeks. He reports he has not been taking Lasix in the afternoon, which she is supposed to be doing because he did not have a bottle that said that. Somehow he knows that he was supposed to be doing it anyway. He denies any chest pain, or fever. He has been coughing some. He reports no exposure to Covid, and is vaccinated. He has had no vomiting or diarrhea. I discussed with him his frequent admissions here, and the concern he might need to go to a nursing facility. He reports he will not do this at this current time, only once diuresed so he can go back nichol e. In the emergency department 80 mg of Lasix were given IV, a dose of Rocephin and a azithromycin, and he was placed on BiPAP. Review of Systems General: Reports: 10 or more systems reviewed and unremarkable except in HPI and below Const: Reports: fatigue; Denies: fever(s) or chills Eyes: Denies: change in vision ENMT: Denies: throat pain Card: Reports: swelling of feet/ankles and dyspnea on exertion; Denies: chest pain Resp: Reports: dyspnea and non-productive cough GI: Denies: abdominal pain : Denies: flank pain Musc: Denies: neck pain Skin/Breast: Denies: rash Neuro: Denies: headache(s) Psych: Denies: anxiety Endo: Denies: polyuria Laureano/Lymph: Denies: easy bruising All/Imm: Denies: urticaria Medications/Allergies Home Medications Medication Instructions Recorded Confirmed Last Taken Type omeprazole 40 mg capsule,delayed 40 mg PO QAM 10/17/20 06/20/21 03/30/21 08:00 History release hydrocodone 10 mg-acetaminophen 1 tab PO Q6H PRN 12/31/20 06/20/21 03/30/21 08:00 History 325 mg tablet paroxetine HCl 20 mg tablet 20 mg PO DAILY 12/31/20 06/20/21 03/30/21 08:00 History tamsulosin 0.4 mg capsule 0.4 mg PO QAM 12/31/20 06/20/21 03/30/21 08:00 History acetaminophen 500 mg tablet 500 - 1,000 mg PO Q4H PRN 06/20/21 06/20/21 Unknown History multivitamin 1 tab PO DAILY 06/20/21 06/20/21 Unknown History nystatin-triamcinolone 100,000 1 applic TOPICAL QID 06/20/21 06/20/21 Unknown History unit/g-0.1 % topical cream sotalol 120 mg tablet 120 mg PO Q12H 06/20/21 06/20/21 Unknown History tizanidine 2 mg tablet 2 mg PO BEDTIME 06/20/21 06/20/21 Unknown History warfarin 5 mg tablet 5 mg PO BID 06/20/21 06/20/21 Unknown History furosemide 20 mg tablet (Lasix) 20 mg PO .Pm #60 tab 06/23/21 Unknown Rx furosemide 80 mg tablet (Lasix) 80 mg PO .am #60 tab 06/23/21 Unknown Rx potassium chloride 10 mEq 10 meq PO DAILY #30 cap 06/23/21 Unknown Rx capsule,extended release Allergies Allergy/AdvReac Type Severity Reaction Status Date / Time tape Allergy Unknown Uncoded 05/04/21 10:28 PFSH Acute PFSH: Medical History (Updated 08/18/21 @ 23:12 by Tyshawn Carreon MD) Acute exacerbation of chronic obstructive airways disease Atrial fibrillation Chronic anticoagulation Chronic hypercapnic respiratory failure Chronic respiratory failure with hypoxia Cor pulmonale Diabetes mellitus, type II Diastolic heart failure GERD (gastroesophageal reflux disease) History of gastric ulcer with perforation Hypersomnia Hypertension Morbid obesity with BMI of 50.0-59.9, adult Obesity On home oxygen therapy 2-3 L Pneumonia Recurrent falls Respiratory failure with hypoxia and hypercapnia Surgical History History of esophagogastroduodenoscopy History of exploratory laparotomy for perforated gastric ulcer Family History Father Cancer lung Mother Asthma CAD (coronary artery disease) Sister Cerebral aneurysm Social History Smoking and tobacco status: former smoker Quit status (tobacco): has quit using tobacco Year quit tobacco: 1979 - 1PPD x 7 Years Second hand smoke exposure: Yes Smoking risk assessment/counseling performed?: No Alcohol intake: current Alcohol intake frequency: few times a week Alcohol type: beer Counseling given: No Counseling given: No Lives independently: Yes Household members: family Marital status: Current occupational status: disabled Previous occupational history: history of working in [employer] History of recent travel: No Current gender identity: Male Vitals/I&O/Wt Last Vital Signs Temp 99.1 F 08/18/21 20:41 Pulse 72 08/18/21 20:54 Resp 30 H 08/18/21 20:54 BP 122/68 08/18/21 20:54 Pulse Ox 97 08/18/21 20:54 Weight last 48 hrs Weight 197.313 kg Physical Exam Narrative: General exam is a markedly overweight white male on BiPAP who is alert and oriented HEENT: Atraumatic normocephalic. BiPAP is on Neck is supple no lymphadenopathy thyromegaly Cardiovascular regular rate and rhythm without murmur Lungs diminished breath sounds bilaterally but no wheezes or crackles Abdomen is soft nontender, obese. No obvious organomegaly exam is deferred Extremities show 3+ edema bilaterally. Cap refill brisk. No cyanosis or clubbing Neuro no focal deficits Skin no rash Urinary Catheter Management: Willingham: Cath Placed During This Visit: yes Urinary Catheter Date of Insertion: 08/18/21 Urinary Catheter Time of Insertion: 20:49 Data : 08/18/21 21:39 08/18/21 21:39 Other Labs: INR is 1.46 ABG demonstrates a pH of 7.36, PCO2 of 80, PO2 of 60 on 4 L LFTs normal Troponin XVII BNP 685 Procalcitonin is ordered and pending Urinalysis ordered Covid PCR pending Chest x-ray demonstrates bilateral atelectasis, right lung effusion EKG demonstrates sinus rhythm, first-degree block, lateral flipped T wave with small Q-wave and no other significant changes. Previous echocardiogram in December demonstrated an EF of 60%, 2/4 diastolic dysfunction A&P Assessment and plan (1) Congestive heart failure: Appears to be significantly swollen consistent with his acute diastolic heart failure Initiate furosemide 80 mg IV every 12 hours Serial troponins are already ordered At this point I do not see any reason to repeat his echocardiogram I suspect he will take 3 to 5 days to adequately diurese Fluid restrict Close follow-up of electrolytes I think he is unlikely to have pneumonia at this point. No antibiotics will not be continued. Check procalcitonin and urinalysis. As he has leg edema, none therapeutic INR today we will check venous duplex. Status: Acute (2) Pleural effusion: Likely secondary to congestive heart failure. He has had this before, and the quantity at that point was not significant enough to require thoracentesis. At this point will not pursue unless fever occurs or other concern of infection, or if his feelings of shortness of breath do not improve with diuresis. Status: Acute (3) Chronic hypercapnic respiratory failure: He has chronic hypercapnic respiratory failure for which she is to be on a trilogy at night and when sleeping. He admits to noncompliance lately. I encouraged him to use this as it is appropriate. Status: Acute Plan Anemia. Continue Protonix. He was iron deficient in December. Repeat studies. History of atrial fibrillation. Continue chronic medications including Coumadin. Pharmacy to adjust. Telemetry. Multiple other medical problems as outlined in past medical history Allow natural Coumadin will suffice for DVT prophylaxis Attestations Medical Necessity Statement*: Will need greater than 2 midnight stay for treatment of acute diastolic heart failure with significant edema. Coding Level of Care Code Acute Immigration Case Manager for Daisy Hdz Diagnoses Congestive heart failure I50.9 Pleural effusion J90 Chronic hypercapnic respiratory failure J96.12
[2021-08-18 23:13] VITALS: BP 153/71; PULSE 69; RESP 27; O2SAT 100
[2021-08-18 23:14] LABS: Procalcitonin 0.05 ng/mL (0-0.5)
--- NOTE | 2021-08-18 23:24 | USR_ITS ---
PROCEDURE INFORMATION: Exam: US Duplex Lower Extremity Veins, Bilateral Exam date and time: 08/18/2021 11:24 PM Age: 66 years old Clinical indication: Edema, localized; Lower extremity, bilateral TECHNIQUE: Imaging protocol: Real-time Duplex ultrasound of the bilateral extremities with 2-D childs scale, color Doppler flow and spectral waveform analysis with image documentation. Complete exam focused on the bilateral lower extremity veins. COMPARISON: US renal BI* [id number] 01/03/2021 9:43 AM FINDINGS: Right deep veins: Unremarkable. The common femoral, femoral, proximal profunda femoral and popliteal veins are patent without thrombus. Normal Doppler waveforms. Normal compressibility and/or augmentation response. Right superficial veins: Saphenofemoral junction is patent without thrombus. Left deep veins: Unremarkable. The common femoral, femoral, proximal profunda femoral and popliteal veins are patent without thrombus. Normal Doppler waveforms. Normal compressibility and/or augmentation response. Left superficial veins: Saphenofemoral junction is patent without thrombus. Soft tissues: Unremarkable. US/[place] [id number] IMPRESSION: No evidence of deep vein thrombosis.
[2021-08-18 23:40] LABS: Troponin 5 2HR 17.08 ng/L (0-15)
[2021-08-18 23:42] LABS: Troponin 5 2HR Delta 0.08 ABS# (0-10)
[2021-08-18 23:53] LABS: Ferritin 72 ng/mL (30-400); Iron 43 ug/dL (59-158); Percent Saturation 10.7 % (20-50); Total Iron Binding Capacity 399 mcg/dl; Unsaturated Iron Binding 356 ug/dL (112-347)
[2021-08-19] VITALS (14 sets, daily range): BP systolic 125–182; BP diastolic 67–82; PULSE 52–77; RESP 8–24; TEMP 36.5–37.2; O2SAT 94–99; BMI 52.9
[2021-08-19 00:04] LABS: Vitamin B12 315 pg/mL (232-1245)
[2021-08-19 00:24] LABS: Adenovirus Not Detected (NOT DETECT); Chlamydia Pneumoniae Not Detected (NOT DETECT); Coronavirus 229E,HKU1,NL63,OC4 Not Detected (NOT DETECT); Human Metapneumovirus Not Detected (NOT DETECT); Human Rhinovirus/Enterovirus Not Detected (NOT DETECT); Influenza A Not Detected (NOT DETECT); Influenza A H1 Not Detected (NOT DETECT); Influenza A H1-2009 Not Detected (NOT DETECT); Influenza A H3 Not Detected (NOT DETECT); Influenza B Not Detected (NOT DETECT); Mycoplasma Pneumoniae Not Detected (NOT DETECT); Parainfluenza Virus Type 1 Not Detected (NOT DETECT); Parainfluenza Virus Type 2 Not Detected (NOT DETECT); Parainfluenza Virus Type 3 Not Detected (NOT DETECT); Parainfluenza Virus Type 4 Not Detected (NOT DETECT); Respiratory Syncytial Virus A Not Detected (NOT DETECT); Respiratory Syncytial Virus B Not Detected (NOT DETECT); SARS-COV-2 Not Detected (NOT DETECT)
[2021-08-19] MEDS: azithromycin 500 MG in sodium chloride 0.9% 250 ML 250 MG IV (00:26)
--- NOTE | 2021-08-19 01:23 | PC.NURSE ---
Patient Output @2310 Patient Willingham Catheter bag drained of 2100mL of clear, bright, yellow urine.
--- NOTE | 2021-08-19 02:36 | ECG_ITS ---
[facility] Test Date: 2021-08-19 Pat Name: Nhan Sol Department: Room: 264 Gender: Male Electric Wirer: : 1955 Requested By: Acacia Caal Order Number: [id number] Sammie MD: Nuris Zuniga M.D. Measurements Intervals [place] Rate: 69 P: 0 AR: 215 QRS: -25 QRSD: 117 T: 76 QT: 415 QTc: 448 Interpretive Statements SINUS RHYTHM WITH SINUS ARRHYTHMIA WITH FIRST DEGREE AV BLOCK BORDERLINE LEFT AXIS DEVIATION [QRS AXIS < -20] MODERATE INTRAVENTRICULAR CONDUCTION DELAY [110+ ms QRS DURATION] Compared to ECG 08/18/2021 20:54:27 Intraventricular conduction delay now present Myocardial infarct finding no longer present Electronically Signed On 08-19-2021 15:27:45 PRINTING PRESSMAN by Nuris Zuniga M.D. [id number]
[2021-08-19 04:20] LABS: INR 1.41 (0.8-1.2)
[2021-08-19 04:30] LABS: Alanine Aminotransferase 10 U/L (0-41); Albumin Level 3.3 g/dL (3.5-5.2); Alkaline Phosphatase 72 IU/L (40-130); Aspartate Amino Transferase 24 U/L (0-40); Blood Urea Nitrogen 11 mg/dL (8-23); Calcium 9.5 mg/dL (8.5-10.5); Carbon Dioxide 40 mmol/L (22-29); Chloride 88 mmol/L (98-107); Globulin 3.4 g/dL (1.3-4.6); Glomerular Filtration Rate 216.6 mL/min (90-130); Glucose 113 mg/dL (65-115); Osmolality Calculated 280 mOsm/kg (285-295); Sodium 135 mmol/L (136-145); Total Bilirubin 0.5 mg/dL (0.15-1.2); Total Protein 6.7 g/dL (6.6-8.7)
[2021-08-19 04:51] LABS: Folate Level 12.9 ng/mL (4.5-32.2)
[2021-08-19 04:54] LABS: Anion Gap 11.3 (5-19); Potassium 4.3 mmol/L (3.5-5.1)
[2021-08-19] MEDS: sotalol 80 mg Tablet 120 MG PO ×3 (06:18→23:59)
[2021-08-19] MEDS: tamsulosin 0.4 mg Capsule PO (06:18)
[2021-08-19 07:42] LABS: Basophils % 0.4 %; Eosinophils # 0.2 10^3/uL (0.0-0.8); Eosinophils % 3.6 %; Hemoglobin 8.1 g/dL (11.7-16.6); Lymphocytes # 1.1 10^3/uL (0.8-4.8); Lymphocytes % 21.3 %; Mean Corpuscular HGB Conc 28.9 g/dL (30.0-36.0); Mean Corpuscular Hemoglobin 27.2 pg (28.0-34.0); Mean Platelet Volume 9.6 fL (7.4-10.4); Monocytes # 0.6 10^3/uL (0.2-0.9); Neutrophils % 62.5 %; Nucleated Red Blood Cells % 0.6 %; Platelet Count 250 10^3/cmm (130-400); Red Blood Count 2.98 10^6/uL (4.1-5.3); Red Cell Distribution Width 17.6 % (12.1-15.1); White Blood Count 5.3 10^3/uL (4.0-10.0)
[2021-08-19] MEDS: PARoxetine 20 mg Tablet PO (09:27)
[2021-08-19] MEDS: FUROsemide 10 mg/mL SDV 10mL 80 MG IVP ×2 (09:27→19:44)
[2021-08-19] MEDS: warfarin 5 mg Tablet PO ×2 (09:27→17:55)
[2021-08-19] MEDS: pantoprazole DR 40 mg Tablet PO (09:27)
[2021-08-19] MEDS: HYDROcodone-acetaminophen 10-325 mg Tablet 1 TAB PO ×2 (10:06→17:56)
[2021-08-19 12:19] LABS: Bilirubin Urine Neg (Negative); Blood Urine 3+ (Negative); Glucose Urine UA Norm (Normal); Ketones Urine Negative (Negative); Leukocyte Esterase Urine 2+ (Negative); Nitrate Urine Negative (Negative); Protein Urine Neg (Negative); Urine Appearance Cloudy (CLEAR); Urine Color Straw (Yellow); Urobilinogen Urine Neg (Negative); pH Urine 5 (5-7)
[2021-08-19 12:20] LABS: Add Urine Culture? Yes; Bacteria Urine 2+ /hpf; RBC Urine TOO NUMEROUS TO CNT /hpf (0-2); Squamous Epithelial Cell Urine RARE /hpf (0-5); WBC Urine TOO NUMEROUS TO CNT /hpf (0-5)
--- NOTE | 2021-08-19 12:32 | PM.PN ---
Subjective Subjective: Patient was seen and examined this morning, deep asleep, no acute event overnight. Medications: Medication Review Details: Generic Name Dose Route Start Last Admin Trade Name Freq PRN Reason Stop Dose Admin Hydrocodone Bitart /Acetaminophen 1 tab 08/19/21 09:50 08/19/21 10:06 Hydrocodone-Acet aminophen 10-325 M g Tablet PO 1 tab Q6H PRN Administration MODERATE PAIN Furosemide 80 mg 08/19/21 09:00 08/19/21 09:27 Furosemide 10 Mg /Ml Sdv 10ml IVP 80 mg Q12H KAI Administration Pantoprazole Sodiu m 40 mg 08/19/21 09:00 08/19/21 09:[address] 40 Mg Tablet PO 40 mg DAILY KAI Administration Paroxetine HCl 20 mg 08/19/21 09:00 08/19/21 09:27 Paroxetine 20 Mg Tablet PO 20 mg DAILY KAI Administration Sotalol HCl 120 mg 08/19/21 01:27 08/19/21 13:35 Sotalol 80 Mg Ta blet PO 120 mg Q12H KAI Administration Tamsulosin HCl 0.4 mg 08/19/21 06:00 08/19/21 06:18 Tamsulosin 0.4 M g Capsule PO 0.4 mg QAM KAI Administration Warfarin Sodium 5 mg 08/19/21 09:00 08/19/21 09:27 Warfarin 5 Mg Ta blet PO 5 mg BID KAI Administration Vitals/I&O/Wt Last Vital Signs Temp 98.0 F 08/19/21 11:05 Pulse 68 08/19/21 11:05 Resp 18 08/19/21 11:05 BP 144/79 08/19/21 11:05 Pulse Ox 95 08/19/21 11:05 08/18/21 08/19/21 08/19/21 22:59 06:59 14:59 Intake Total 300 / 300 Output Total 1999 / 1999 350 / 350 Balance -1700 / -1700 -350 / -350 Weight last 48 hrs Weight 197.313 kg Weight 197.313 kg Physical Exam Const: COMMON NORMALS: patient oriented x3 HENMT: COMMON NORMALS: normocephalic and atraumatic HEAD & SCALP: normocephalic and atraumatic Eye: GENERAL EYE: appearance normal, both eyes and all related structures Chest: COMMONS NORMALS: normal inspection of the chest and normal palpation of entire chest wall CHEST: Yes Symmetrical chest wall rise Resp: COMMON NORMALS: normal respiratory effort, No retractions, No use of accessory muscles and clear to auscultation bilaterally EFFORT & INSPECTION: Yes symmetric chest movement AUSCULTATION: clear to auscultation bilaterally OTHER: Diminished air entry bilaterally. No Wheezing no rhonchi no crackles. Cardio: COMMON NORMALS: regular rate, regular rhythm, S1 normal heart sound present, S2 normal heart sound present, No gallops present (Cardio), No murmurs present (Cardio), No rub (Cardio) and Peripheral pulses 2+ throughout RATE: regular rate RHYTHM: regular rhythm HEART SOUNDS: S1 normal heart sound present and S2 normal heart sound present PERIPHERAL PULSES: Peripheral pulses 2+ throughout GI: COMMON NORMALS: Normal to inspection, nondistended, normoactive bowel sounds present, Soft to palpation, non-tender, No hepatosplenomegaly present and no masses AUSCULTATION: Yes normoactive bowel sounds PALPATION: Yes Soft to palpation and Yes No hepatosplenomegaly present RECTAL EXAM: Yes deferred Extremity: COMMON NORMALS: no clubbing, cyanosis or edema and no pedal edema NARRATIVE EXTREMITY EXAM: 2+ bilateral lower extremity pitting edema present Neuro: COMMON NORMALS: patient oriented x3 Urinary Catheter Management: Willingham: Cath Placed During This Visit: yes Reason for Continuing Indwelling Catheter: Hospice/Comfort/Palliative Care Urinary Catheter Date of Insertion: 08/18/21 Urinary Catheter Time of Insertion: 20:49 Data : 08/19/21 07:35 08/19/21 03:45 A&P Assessment and plan (1) Congestive heart failure: Appears to be significantly swollen consistent with his acute diastolic heart failure Initiate furosemide 80 mg IV every 12 hours Serial troponins are already ordered At this point I do not see any reason to repeat his echocardiogram I suspect he will take 3 to 5 days to adequately diurese Fluid restrict Close follow-up of electrolytes I think he is unlikely to have pneumonia at this point. No antibiotics will not be continued. Check procalcitonin and urinalysis. As he has leg edema, none therapeutic INR today we will check venous duplex. Status: Acute (2) Pleural effusion: Likely secondary to congestive heart failure. He has had this before, and the quantity at that point was not significant enough to require thoracentesis. At this point will not pursue unless fever occurs or other concern of infection, or if his feelings of shortness of breath do not improve with diuresis. Status: Acute (3) Chronic hypercapnic respiratory failure: He has chronic hypercapnic respiratory failure for which she is to be on a trilogy at night and when sleeping. He admits to noncompliance lately. I encouraged him to use this as it is appropriate. Status: Acute Plan Assessment: #Acute on chronic decompensated heart failure with preserved ejection fraction: Patient came in with worsening shortness of breath, worsening edema, is not taking Lasix in the afternoon. proBNP 685, he is morbidly obese. Currently on Lasix 80 twice daily IV Monitor intake output charting Daily weight k:4,mg>2 Continue telemetry monitoring #Chronic hypoxic hypercapnic respiratory failure: Continue BiPAP #Atrial fibrillation: Currently in sinus, with well-controlled heart rate Continue sotalol, continue warfarin #Diabetes: Continue sliding scale insulin,fsg, carb consistent diet #Hypertension: #Morbid obesity #COPD: Currently not in exacerbation. DuoNebs as needed #DVT Prophylaxis: Not needed On warfarin #Code status : AND Attestations Medical Necessity Statement*: Patient is to be in hospital for management of decompensated heart failure. Coding Level of Care Code Acute Adjunct Professor Of [employer] for Daisy Hdz Diagnoses Congestive heart failure I50.9 Pleural effusion J90 Chronic hypercapnic respiratory failure J96.12
[2021-08-19] MEDS: acetaminophen 325 mg Tablet 650 MG PO (19:44)
[2021-08-19 20:48] LABS: Glucose Point of Care 107 mg/dL (70-110)
[2021-08-20] VITALS (18 sets, daily range): BP systolic 129–158; BP diastolic 71–92; PULSE 53–76; RESP 17–29; TEMP 36.5–36.8; O2SAT 92–97
[2021-08-20] MEDS: acetaminophen 325 mg Tablet 650 MG PO (03:23)
[2021-08-20 05:20] LABS: INR 1.58 (0.8-1.2)
[2021-08-20] MEDS: tamsulosin 0.4 mg Capsule PO (05:59)
[2021-08-20] MEDS: HYDROcodone-acetaminophen 10-325 mg Tablet 1 TAB PO ×4 (06:00→18:16)
[2021-08-20 06:22] LABS: Glucose Point of Care 101 mg/dL (70-110)
--- NOTE | 2021-08-20 08:02 | P.PN_ITS ---
Subjective Subjective: Patient was seen and examined this morning, alert and awake today, wants to try getting out of the bed. Serum bicarb is 42, will initiate acetazolamide. Since his shortness of breath as well as bilateral lower extremity swelling has improved, will cut back on the dose of Lasix to 40 twice daily. Currently he is on 80 of Lasix twice daily IV. Medications: Medication Review Details: Generic Name Dose Route Start Last Admin Trade Name Freq PRN Reason Stop Dose Admin Hydrocodone Bitart /Acetaminophen 1 tab 08/19/21 09:50 08/19/21 10:06 Hydrocodone-Acet aminophen 10-325 M g Tablet PO 1 tab Q6H PRN Administration MODERATE PAIN Furosemide 80 mg 08/19/21 09:00 08/19/21 09:27 Furosemide 10 Mg /Ml Sdv 10ml IVP 80 mg Q12H KAI Administration Pantoprazole Sodiu m 40 mg 08/19/21 09:00 08/19/21 09:[address] 40 Mg Tablet PO 40 mg DAILY KAI Administration Paroxetine HCl 20 mg 08/19/21 09:00 08/19/21 09:27 Paroxetine 20 Mg Tablet PO 20 mg DAILY KAI Administration Sotalol HCl 120 mg 08/19/21 01:27 08/19/21 13:35 Sotalol 80 Mg Ta blet PO 120 mg Q12H KAI Administration Tamsulosin HCl 0.4 mg 08/19/21 06:00 08/19/21 06:18 Tamsulosin 0.4 M g Capsule PO 0.4 mg QAM KAI Administration Warfarin Sodium 5 mg 08/19/21 09:00 08/19/21 09:27 Warfarin 5 Mg Ta blet PO 5 mg BID KAI Administration Vitals/I&O/Wt Last Vital Signs Temp 97.7 F 08/20/21 04:35 Pulse 54 L 08/20/21 06:18 Resp 26 H 08/20/21 04:35 BP 147/75 08/20/21 04:35 Pulse Ox 95 08/20/21 06:18 08/19/21 08/20/21 08/20/21 22:59 06:59 14:59 Intake Total 50 / 50 200 / 250 Output Total 900 / 1999 250 / 2250 Balance -850 / -1950 -50 / Weight last 48 hrs Weight 197.313 kg Weight 197.313 kg Weight 197.313 kg Physical Exam Const: COMMON NORMALS: patient oriented x3 HENMT: COMMON NORMALS: normocephalic and atraumatic HEAD & SCALP: normocephalic and atraumatic Eye: GENERAL EYE: appearance normal, both eyes and all related structures Chest: COMMONS NORMALS: normal inspection of the chest and normal palpation of entire chest wall CHEST: Yes Symmetrical chest wall rise Resp: COMMON NORMALS: normal respiratory effort, No retractions, No use of accessory muscles and clear to auscultation bilaterally EFFORT & INSPECTION: Yes symmetric chest movement AUSCULTATION: clear to auscultation bilaterally OTHER: Diminished air entry bilaterally. No Wheezing no rhonchi no crackles. Cardio: COMMON NORMALS: regular rate, regular rhythm, S1 normal heart sound present, S2 normal heart sound present, No gallops present (Cardio), No murmurs present (Cardio), No rub (Cardio) and Peripheral pulses 2+ throughout RATE: regular rate RHYTHM: regular rhythm HEART SOUNDS: S1 normal heart sound present and S2 normal heart sound present PERIPHERAL PULSES: Peripheral pulses 2+ throughout GI: COMMON NORMALS: Normal to inspection, nondistended, normoactive bowel sounds present, Soft to palpation, non-tender, No hepatosplenomegaly present and no masses AUSCULTATION: Yes normoactive bowel sounds PALPATION: Yes Soft to palpation and Yes No hepatosplenomegaly present RECTAL EXAM: Yes deferred Extremity: COMMON NORMALS: no clubbing, cyanosis or edema and no pedal edema NARRATIVE EXTREMITY EXAM: 2+ bilateral lower extremity pitting edema present Neuro: COMMON NORMALS: patient oriented x3 Urinary Catheter Management: Willingham: Cath Placed During This Visit: yes Reason for Continuing Indwelling Catheter: Other Urinary Catheter Date of Insertion: 08/18/21 Urinary Catheter Time of Insertion: 20:49 Data : 08/20/21 08:25 08/20/21 08:25 A&P Assessment and plan (1) Congestive heart failure: Appears to be significantly swollen consistent with his acute diastolic heart failure Initiate furosemide 80 mg IV every 12 hours Serial troponins are already ordered At this point I do not see any reason to repeat his echocardiogram I suspect he will take 3 to 5 days to adequately diurese Fluid restrict Close follow-up of electrolytes I think he is unlikely to have pneumonia at this point. No antibiotics will not be continued. Check procalcitonin and urinalysis. As he has leg edema, none therapeutic INR today we will check venous duplex. Status: Acute (2) Pleural effusion: Likely secondary to congestive heart failure. He has had this before, and the quantity at that point was not significant enoug h to require thoracentesis. At this point will not pursue unless fever occurs or other concern of infection, or if his feelings of shortness of breath do not improve with diuresis. Status: Acute (3) Chronic hypercapnic respiratory failure: He has chronic hypercapnic respiratory failure for which she is to be on a trilogy at night and when sleeping. He admits to noncompliance lately. I encouraged him to use this as it is appropriate. Status: Acute Plan Assessment: #Acute on chronic decompensated heart failure with preserved ejection fraction: Patient came in with worsening shortness of breath, worsening edema, is not taking Lasix in the afternoon. proBNP 685, he is morbidly obese. Currently on Lasix 80 twice daily IV Monitor intake output charting Daily weight k:4,mg>2 Continue telemetry monitoring #Chronic hypoxic hypercapnic respiratory failure: Continue BiPAP #Atrial fibrillation: Currently in sinus, with well-controlled heart rate Continue sotalol, continue warfarin #Diabetes: Continue sliding scale insulin,fsg, carb consistent diet #Hypertension: #Morbid obesity #COPD: Currently not in exacerbation. DuoNebs as needed #DVT Prophylaxis: Not needed On warfarin #Code status : AND Attestations Medical Necessity Statement*: Patient is to be in hospital for management of decompensated heart failure. 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 Fwd Exam Comprehensive Diagnoses Congestive heart failure I50.9 Pleural effusion J90 Chronic hypercapnic respiratory failure J96.12
[2021-08-20] MEDS: ipratropium-albuterol 3 mL Neb INHALATION ×2 (08:04→13:28)
[2021-08-20 08:43] LABS: Basophils % 0.6 %; Eosinophils # 0.3 10^3/uL (0.0-0.8); Eosinophils % 5.8 %; Hematocrit 31.1 % (42.0-52.0); Hemoglobin 8.6 g/dL (11.7-16.6); Lymphocytes # 1.2 10^3/uL (0.8-4.8); Mean Corpuscular HGB Conc 27.7 g/dL (30.0-36.0); Mean Corpuscular Volume 97.8 fl (80-94); Mean Platelet Volume 9.8 fL (7.4-10.4); Monocytes # 0.6 10^3/uL (0.2-0.9); Monocytes % 11.2 %; Neutrophils # 2.92 10^3/uL (1.8-7.7); Neutrophils % 58.4 %; Nucleated Red Blood Cells % 0 %; Platelet Count 263 10^3/cmm (130-400); Red Blood Count 3.18 10^6/uL (4.1-5.3); Red Cell Distribution Width 17.8 % (12.1-15.1)
[2021-08-20 09:02] LABS: Anion Gap 11.3 (5-19); Blood Urea Nitrogen 16 mg/dL (8-23); Calcium 9.8 mg/dL (8.5-10.5); Chloride 89 mmol/L (98-107); Glomerular Filtration Rate 216.6 mL/min (90-130); Glucose 83 mg/dL (65-115); Osmolality Calculated 286 mOsm/kg (285-295); Potassium 4.3 mmol/L (3.5-5.1); Sodium 138 mmol/L (136-145)
[2021-08-20] MEDS: FUROsemide 10 mg/mL SDV 10mL 80 MG IVP (09:12)
[2021-08-20] MEDS: warfarin 5 mg Tablet PO ×2 (09:13→17:59)
[2021-08-20] MEDS: PARoxetine 20 mg Tablet PO (09:13)
[2021-08-20] MEDS: pantoprazole DR 40 mg Tablet PO (09:13)
[2021-08-20 09:30] LABS: Carbon Dioxide 42 mmol/L (22-29)
[2021-08-20] MEDS: acetaZOLAMIDE 250 mg Tablet 500 MG PO (10:29)
[2021-08-20 12:09] LABS: Glucose Point of Care 117 mg/dL (70-110)
[2021-08-20] MEDS: FUROsemide 10 mg/mL SDV 4mL 40 MG IVP (17:59)
[2021-08-21] VITALS (11 sets, daily range): BP systolic 120–150; BP diastolic 68–79; PULSE 62–82; RESP 11–26; TEMP 36.6–37; O2SAT 90–97
[2021-08-21] MEDS: HYDROcodone-acetaminophen 10-325 mg Tablet 1 TAB PO ×4 (00:12→21:31)
[2021-08-21 04:13] LABS: Basophils % 0.8 %; Eosinophils # 0.4 10^3/uL (0.0-0.8); Eosinophils % 7.2 %; Hematocrit 30.3 % (42.0-52.0); Hemoglobin 8.5 g/dL (11.7-16.6); Lymphocytes # 1.1 10^3/uL (0.8-4.8); Lymphocytes % 21.7 %; Mean Corpuscular HGB Conc 28.1 g/dL (30.0-36.0); Mean Corpuscular Hemoglobin 27.2 pg (28.0-34.0); Mean Corpuscular Volume 96.8 fl (80-94); Mean Platelet Volume 9.6 fL (7.4-10.4); Monocytes # 0.6 10^3/uL (0.2-0.9); Monocytes % 12.2 %; Neutrophils # 3.04 10^3/uL (1.8-7.7); Neutrophils % 57.7 %; Nucleated Red Blood Cells % 0 %; Platelet Count 279 10^3/cmm (130-400); Red Blood Count 3.13 10^6/uL (4.1-5.3); White Blood Count 5.3 10^3/uL (4.0-10.0)
[2021-08-21 04:26] LABS: INR 1.88 (0.8-1.2)
[2021-08-21 04:36] LABS: Anion Gap 8.9 (5-19); Blood Urea Nitrogen 16 mg/dL (8-23); Calcium 9.5 mg/dL (8.5-10.5); Carbon Dioxide 41 mmol/L (22-29); Chloride 95 mmol/L (98-107); Glomerular Filtration Rate 167.4 mL/min (90-130); Glucose 112 mg/dL (65-115); Osmolality Calculated 294 mOsm/kg (285-295); Potassium 3.9 mmol/L (3.5-5.1); Sodium 141 mmol/L (136-145)
[2021-08-21] MEDS: FUROsemide 10 mg/mL SDV 4mL 40 MG IVP ×2 (06:25→17:45)
[2021-08-21] MEDS: tamsulosin 0.4 mg Capsule PO (06:32)
[2021-08-21] MEDS: PARoxetine 20 mg Tablet PO (08:11)
[2021-08-21] MEDS: acetaZOLAMIDE 250 mg Tablet 500 MG PO (08:11)
[2021-08-21] MEDS: pantoprazole DR 40 mg Tablet PO (08:11)
--- NOTE | 2021-08-21 12:58 | PM.PN ---
Subjective Subjective: Patient was seen and examined this morning, alert and awake today, Serum bicarb is 40, robust urine output, patient states he is feeling fine. Medications: Medication Review Details: Generic Name Dose Route Start Last Admin Trade Name Lillian PRN Reason Stop Dose Admin Hydrocodone Bitart /Acetaminophen 1 tab 08/19/21 09:50 08/19/21 10:06 Hydrocodone-Acet aminophen 10-325 M g Tablet PO 1 tab Q6H PRN Administration MODERATE PAIN Furosemide 80 mg 08/19/21 09:00 08/19/21 09:27 Furosemide 10 Mg /Ml Sdv 10ml IVP 80 mg Q12H KAI Administration Pantoprazole Sodiu m 40 mg 08/19/21 09:00 08/19/21 09:[address] 40 Mg Tablet PO 40 mg DAILY KAI Administration Paroxetine HCl 20 mg 08/19/21 09:00 08/19/21 09:27 Paroxetine 20 Mg Tablet PO 20 mg DAILY KAI Administration Sotalol HCl 120 mg 08/19/21 01:27 08/19/21 13:35 Sotalol 80 Mg Ta blet PO 120 mg Q12H KAI Administration Tamsulosin HCl 0.4 mg 08/19/21 06:00 08/19/21 06:18 Tamsulosin 0.4 M g Capsule PO 0.4 mg QAM KAI Administration Warfarin Sodium 5 mg 08/19/21 09:00 08/19/21 09:27 Warfarin 5 Mg Ta blet PO 5 mg BID KAI Administration Vitals/I&O/Wt Last Vital Signs Temp 98.0 F 08/21/21 10:52 Pulse 66 08/21/21 11:00 Resp 17 08/21/21 10:52 BP 146/68 08/21/21 10:52 Pulse Ox 95 08/21/21 11:00 08/20/21 08/21/21 08/21/21 22:59 06:59 14:59 Intake Total 0 / 0 180 / 180 Output Total 4400 / 4400 900 / 5300 2700 / 2700 Balance -4400 / -4400 -720 / -5120 -2700 / -2700 Weight last 48 hrs Weight 197.313 kg Physical Exam Const: COMMON NORMALS: patient oriented x3 HENMT: COMMON NORMALS: normocephalic and atraumatic HEAD & SCALP: normocephalic and atraumatic Eye: GENERAL EYE: appearance normal, both eyes and all related structures Chest: COMMONS NORMALS: normal inspection of the chest and normal palpation of entire chest wall CHEST: Yes Symmetrical chest wall rise Resp: COMMON NORMALS: normal respiratory effort, No retractions, No use of accessory muscles and clear to auscultation bilaterally EFFORT & INSPECTION: Yes symmetric chest movement AUSCULTATION: clear to auscultation bilaterally OTHER: Diminished air entry bilaterally. No Wheezing no rhonchi no crackles. Cardio: COMMON NORMALS: regular rate, regular rhythm, S1 normal heart sound present, S2 normal heart sound present, No gallops present (Cardio), No murmurs present (Cardio), No rub (Cardio) and Peripheral pulses 2+ throughout RATE: regular rate RHYTHM: regular rhythm HEART SOUNDS: S1 normal heart sound present and S2 normal heart sound present PERIPHERAL PULSES: Peripheral pulses 2+ throughout GI: COMMON NORMALS: Normal to inspection, nondistended, normoactive bowel sounds present, Soft to palpation, non-tender, No hepatosplenomegaly present and no masses AUSCULTATION: Yes normoactive bowel sounds PALPATION: Yes Soft to palpation and Yes No hepatosplenomegaly present RECTAL EXAM: Yes deferred Extremity: COMMON NORMALS: no clubbing, cyanosis or edema and no pedal edema NARRATIVE EXTREMITY EXAM: 2+ bilateral lower extremity pitting edema present Neuro: COMMON NORMALS: patient oriented x3 Urinary Catheter Management: Willingham: Cath Placed During This Visit: yes Reason for Continuing Indwelling Catheter: Acute Urinary Retention or Obstruction Urinary Catheter Date of Insertion: 08/18/21 Urinary Catheter Time of Insertion: 20:49 Data : 08/21/21 03:58 08/21/21 03:58 Micro: Microbiology 08/19/21 11:35 Urine Culture - Final Urine,Clean Catch A&P Assessment and plan (1) Congestive heart failure: Appears to be significantly swollen consistent with his acute diastolic heart failure Initiate furosemide 80 mg IV every 12 hours Serial troponins are already ordered At this point I do not see any reason to repeat his echocardiogram I suspect he will take 3 to 5 days to adequately diurese Fluid restrict Close follow-up of electrolytes I think he is unlikely to have pneumonia at this point. No antibiotics will not be continued. Check procalcitonin and urinalysis. As he has leg edema, none therapeutic INR today we will check venous duplex. Status: Acute (2) Pleural effusion: Likely secondary to congestive heart failure. He has had this before, and the quantity at that point was not significant enough to require thoracentesis. At this point will not pursue unless fever occurs or other concern of infection, or if his feelings of shortness of breath do not improve with diuresis. Status: Acute (3) Chronic hypercapnic respiratory failure: He has chronic hypercapnic respiratory failure for which she is to be on a trilogy at night and when sleeping. He admits to noncompliance lately. I encouraged him to use this as it is appropriate. Status: Acute Plan Assessment: #Acute on chronic decompensated heart failure with preserved ejection fraction: Patient came in with worsening shortness of breath, worsening edema, is not taking Lasix in the afternoon. proBNP 685, he is morbidly obese. Currently on Lasix 40 twice daily IV Continue acetazolamide 500 mg p.o. daily Monitor intake output charting Daily weight k:4,mg>2 Continue telemetry monitoring #Chronic hypoxic hypercapnic respiratory failure: Continue BiPAP #Atrial fibrillation: Currently in sinus, with well-controlled heart rate Continue sotalol, continue warfarin #Diabetes: Continue sliding scale insulin,fsg, carb consistent diet #Hypertension: #Morbid obesity #COPD: Currently not in exacerbation. DuoNebs as needed #DVT Prophylaxis: Not needed On warfarin #Code status : AND Attestations Medical Necessity Statement*: Patient needs to be in hospital for management of decompensated heart failure. 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
[2021-08-21] MEDS: warfarin 10 mg Tablet PO (13:26)
--- NOTE | 2021-08-21 14:38 | PC.SOCIAL ---
IMM UPDATED IMM dated and initialed and copy given to patient
--- NOTE | 2021-08-21 17:01 | PC.NURSE ---
Mayra Milner is allowed to have information about the patient and be sent into the patient's room to speak to him at his own request. Patient states that this is his step daughter. [phone]
[2021-08-21] MEDS: acetaminophen 325 mg Tablet 650 MG PO (17:45)
--- NOTE | 2021-08-21 19:19 | PC.NURSE ---
Report to Venus SR at this time.
[2021-08-22] VITALS (13 sets, daily range): BP systolic 109–162; BP diastolic 67–82; PULSE 55–82; RESP 8–29; TEMP 36.5–37; O2SAT 92–98
[2021-08-22] MEDS: sotalol 80 mg Tablet 120 MG PO ×2 (01:36→14:34)
[2021-08-22] MEDS: HYDROcodone-acetaminophen 10-325 mg Tablet 1 TAB PO ×3 (04:10→17:40)
[2021-08-22 04:34] LABS: Basophils % 0.6 %; Eosinophils # 0.5 10^3/uL (0.0-0.8); Hematocrit 31.2 % (42.0-52.0); Hemoglobin 8.8 g/dL (11.7-16.6); Lymphocytes # 1.1 10^3/uL (0.8-4.8); Lymphocytes % 22.7 %; Mean Corpuscular HGB Conc 28.2 g/dL (30.0-36.0); Mean Corpuscular Hemoglobin 27.2 pg (28.0-34.0); Mean Corpuscular Volume 96.3 fl (80-94); Mean Platelet Volume 9.3 fL (7.4-10.4); Monocytes # 0.6 10^3/uL (0.2-0.9); Monocytes % 11.6 %; Neutrophils # 2.68 10^3/uL (1.8-7.7); Neutrophils % 54.7 %; Nucleated Red Blood Cells % 0 %; Platelet Count 258 10^3/cmm (130-400); Red Blood Count 3.24 10^6/uL (4.1-5.3); Red Cell Distribution Width 17.8 % (12.1-15.1); White Blood Count 4.9 10^3/uL (4.0-10.0)
[2021-08-22 05:01] LABS: Anion Gap 9.8 (5-19); Blood Urea Nitrogen 12 mg/dL (8-23); Calcium 9.1 mg/dL (8.5-10.5); Carbon Dioxide 38 mmol/L (22-29); Chloride 96 mmol/L (98-107); Glomerular Filtration Rate 167.4 mL/min (90-130); Glucose 101 mg/dL (65-115); Osmolality Calculated 290 mOsm/kg (285-295); Potassium 3.8 mmol/L (3.5-5.1); Sodium 140 mmol/L (136-145)
[2021-08-22] MEDS: FUROsemide 10 mg/mL SDV 4mL 40 MG IVP (05:59)
[2021-08-22] MEDS: tamsulosin 0.4 mg Capsule PO (05:59)
--- NOTE | 2021-08-22 06:35 | PC.NURSE ---
Frequent safety and comfort rounds continue. Orders and/or nursing care completed as indicated. Patient monitored for response to intervention and treatment(s). Education provided includes pain medication side effects and timing. Patient and/or customer counter representative verbalized understanding. Will continue to monitor.
[2021-08-22] MEDS: acetaZOLAMIDE 250 mg Tablet 500 MG PO (08:25)
[2021-08-22] MEDS: pantoprazole DR 40 mg Tablet PO (08:25)
[2021-08-22] MEDS: PARoxetine 20 mg Tablet PO (08:25)
[2021-08-22 11:40] LABS: INR 2.41 (0.8-1.2)
[2021-08-22] MEDS: warfarin 10 mg Tablet PO (14:33)
--- NOTE | 2021-08-22 14:48 | PM.PN ---
Subjective Subjective: Patient was seen this morning, he complains of generalized weakness, but he feels that his breathing has improved, he is wearing his BiPAP, compliant Vitals/I&O/Wt Last Vital Signs Temp 98.6 F 08/22/21 04:00 Pulse 77 08/22/21 11:44 Resp 14 08/22/21 11:44 BP 144/75 08/22/21 11:44 Pulse Ox 96 08/22/21 11:44 08/21/21 08/22/21 08/22/21 22:59 06:59 14:59 Intake Total 170 / 370 300 / 670 560 / 560 Output Total 3300 / 6000 3500 / 9500 Balance -3130 / -5630 -3200 / -8830 560 / 560 Physical Exam Const: COMMON NORMALS: no acute distress and patient oriented x3 Resp: COMMON NORMALS: normal respiratory effort, No retractions, No use of accessory muscles and clear to auscultation bilaterally AUSCULTATION: clear to auscultation bilaterally Cardio: COMMON NORMALS: regular rate, regular rhythm, S1 normal heart sound present and S2 normal heart sound present RATE: regular rate RHYTHM: regular rhythm HEART SOUNDS: S1 normal heart sound present and S2 normal heart sound present GI: COMMON NORMALS: Normal to inspection, nondistended, normoactive bowel sounds present, Soft to palpation, non-tender and No hepatosplenomegaly present PALPATION: Yes Soft to palpation and Yes No hepatosplenomegaly present Extremity: COMMON NORMALS: no pedal edema Neuro: COMMON NORMALS: patient oriented x3 Psych: COMMON NORMALS: mental status grossly normal Urinary Catheter Management: Willingham: Cath Placed During This Visit: yes Reason for Continuing Indwelling Catheter: Acute Urinary Retention or Obstruction Urinary Catheter Date of Insertion: 08/18/21 Urinary Catheter Time of Insertion: 20:49 Data : 08/23/21 04:58 08/23/21 04:58 Micro: Microbiology 08/19/21 11:35 Urine Culture - Final Urine,Clean Catch A&P Assessment and plan (1) Congestive heart failure: Appears to be significantly swollen consistent with his acute diastolic heart failure Initiate furosemide 80 mg IV every 12 hours Serial troponins are already ordered At this point I do not see any reason to repeat his echocardiogram I suspect he will take 3 to 5 days to adequately diurese Fluid restrict Close follow-up of electrolytes I think he is unlikely to have pneumonia at this point. No antibiotics will not be continued. Check procalcitonin and urinalysis. As he has leg edema, none therapeutic INR today we will check venous duplex. Status: Acute (2) Pleural effusion: Likely secondary to congestive heart failure. He has had this before, and the quantity at that point was not significant enough to require thoracentesis. At this point will not pursue unless fever occurs or other concern of infection, or if his feelings of shortness of breath do not improve with diuresis. Status: Acute (3) Chronic hypercapnic respiratory failure: He has chronic hypercapnic respiratory failure for which she is to be on a trilogy at night and when sleeping. He admits to noncompliance lately. I encouraged him to use this as it is appropriate. Status: Acute Plan Assessment: #Acute on chronic decompensated heart failure with preserved ejection fraction: Patient came in with worsening shortness of breath, worsening edema, is not taking Lasix in the afternoon. proBNP 685, he is morbidly obese. Diuresed over 17 L, hold Lasix, monitor creatinine Continue acetazolamide 500 mg p.o. daily Monitor intake output charting Daily weight k:4,mg>2 Continue telemetry monitoring #Chronic hypoxic hypercapnic respiratory failure: Continue BiPAP #Atrial fibrillation: Currently in sinus, with well-controlled heart rate Continue sotalol, continue warfarin #Diabetes: Continue sliding scale insulin,fsg, carb consistent diet #Hypertension: #Morbid obesity #COPD: Currently not in exacerbation. 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
[2021-08-22] MEDS: acetaminophen 325 mg Tablet 650 MG PO ×2 (15:50→22:24)
--- NOTE | 2021-08-22 19:09 | PC.NURSE ---
Report to Kassandra DESOUZA at this time.
[2021-08-23] VITALS (8 sets, daily range): BP systolic 105–141; BP diastolic 66–77; PULSE 57–73; RESP 16–23; TEMP 36.6–36.8; O2SAT 93–100
[2021-08-23] MEDS: HYDROcodone-acetaminophen 10-325 mg Tablet 1 TAB PO ×2 (01:39→08:56)
--- NOTE | 2021-08-23 01:56 | PC.NURSE ---
Dr. Camarillo gave verbal order to hold Sotalol 120mg PO scheduled for 0127 due to bradycardia, pt HR has been 55-57 all shift.
[2021-08-23] MEDS: acetaminophen 325 mg Tablet 650 MG PO ×2 (04:41→14:18)
[2021-08-23 05:29] LABS: Basophils % 0.7 %; Eosinophils # 0.4 10^3/uL (0.0-0.8); Eosinophils % 8.9 %; Hematocrit 31.5 % (42.0-52.0); Lymphocytes # 1.1 10^3/uL (0.8-4.8); Lymphocytes % 23.5 %; Mean Corpuscular HGB Conc 28.6 g/dL (30.0-36.0); Mean Corpuscular Hemoglobin 26.8 pg (28.0-34.0); Mean Corpuscular Volume 93.8 fl (80-94); Mean Platelet Volume 9.7 fL (7.4-10.4); Monocytes # 0.5 10^3/uL (0.2-0.9); Monocytes % 10.9 %; Neutrophils # 2.57 10^3/uL (1.8-7.7); Neutrophils % 55.8 %; Nucleated Red Blood Cells % 0 %; Platelet Count 257 10^3/cmm (130-400); Red Blood Count 3.36 10^6/uL (4.1-5.3); White Blood Count 4.6 10^3/uL (4.0-10.0)
[2021-08-23 05:45] LABS: INR 2.66 (0.8-1.2)
[2021-08-23 05:51] LABS: Blood Urea Nitrogen 12 mg/dL (8-23); Calcium 9.6 mg/dL (8.5-10.5); Carbon Dioxide 37 mmol/L (22-29); Chloride 97 mmol/L (98-107); Glomerular Filtration Rate 216.6 mL/min (90-130); Glucose 124 mg/dL (65-115); Osmolality Calculated 289 mOsm/kg (285-295); Sodium 139 mmol/L (136-145)
[2021-08-23] MEDS: tamsulosin 0.4 mg Capsule PO (06:22)
--- NOTE | 2021-08-23 08:30 | PC.SOCIAL ---
IMM Update pg 2 of IMM updated and reviewed w/ patient. Copy provided and Copy in chart updated.
[2021-08-23] MEDS: PARoxetine 20 mg Tablet PO (08:56)
[2021-08-23] MEDS: acetaZOLAMIDE 250 mg Tablet 500 MG PO (08:56)
[2021-08-23] MEDS: pantoprazole DR 40 mg Tablet PO (08:56)
--- NOTE | 2021-08-23 09:42 | P.DS_ITS ---
Discharge Providers Date of Admission: 08/18/21 22:49 Date of Discharge: August 23, 2021 Attending Provider at Admission: Tyshawn Carreon MD Attending Provider at Discharge: Harris Pierson MD Primary Care Provider: Robert Mustafa Diagnoses at Discharge Discharge Diagnosis (1) Congestive heart failure: Status: Acute (2) Pleural effusion: Status: Acute (3) Chronic hypercapnic respiratory failure: Status: Acute Reason for Visit Reason for Visit: SOB CHF Hospital Course Hospital Course This is a this 66-year-old male with a past medical history of chronic respiratory failure, CHF, A. fib, morbid obesity, on Coumadin, who presents to [facility] due to worsening shortness of breath. Patient was admitted to [facility] for acute on chronic respiratory failure secondary to CHF, was diuresed over 17 L, clinically improved, ambulating without any significant symptomatology, creatinine discharge 0.4, discharge on Lasix 40 twice daily, with close follow-up with cardiology service. Patient also developed sinus bradycardia, asymptomatic, secondary to sotalol, his sotalol doses in the morning especially had to be held, I have decreased his sotalol to 80 every 12 hours Physical Exam Const: COMMON NORMALS: no acute distress and patient oriented x3 Resp: COMMON NORMALS: normal respiratory effort, No retractions, No use of accessory muscles and clear to auscultation bilaterally AUSCULTATION: clear to auscultation bilaterally Cardio: COMMON NORMALS: regular rate, regular rhythm, S1 normal heart sound p resent and S2 normal heart sound present RATE: regular rate RHYTHM: regular rhythm HEART SOUNDS: S1 normal heart sound present and S2 normal heart sound present GI: COMMON NORMALS: Normal to inspection, nondistended, normoactive bowel sounds present, Soft to palpation, non-tender and No hepatosplenomegaly present PALPATION: Yes Soft to palpation and Yes No hepatosplenomegaly present Extremity: COMMON NORMALS: no pedal edema Neuro: COMMON NORMALS: patient oriented x3 Urinary Catheter Management: [place]: Cath Placed During This Visit: yes Reason for Continuing Indwelling Catheter: Accurate Measurement of Urinary Output in Critically Ill Patients Urinary Catheter Date of Insertion: 08/18/21 Urinary Catheter Time of Insertion: 20:49 Discharge Data Studies Completed and Pending Completed Studies During Hospitalization Category Date Time Status XR chest 1V portable [id number] Stat Exams 08/18/21 20:36 [place] [id number] Routine Ultrasound 08/18/21 23:24 Completed Pending at discharge Category Date Time Status Fecal Occult Blood [Immunochemical Fecal OCB] Routine Lab 08/19/21 01:27 Uncollected Prothrombin Time INR AM LABS Lab 08/24/21 04:00 Ordered Prothrombin Time INR AM LABS Lab 08/25/21 04:00 Ordered Radiology Impressions Chest X-Ray 08/18/21 20:36 IMPRESSION: 1. Increased moderate to severe right basilar atelectasis and/or infiltrate and/or effusion. 2. Increased left perihilar and left lower lobe pneumonia. Venous Duplex 08/18/21 23:24 IMPRESSION: No evidence of deep vein thrombosis. Laboratory Results WBC 4.6 10^3/uL (4.0-10.0) 08/23/21 04:58 Corrected WBC Cancelled 08/19/21 03:45 RBC 3.36 10^6/uL (4.1-5.3) L 08/23/21 04:58 Hgb 9.0 g/dL (11.7-16.6) L 08/23/21 04:58 Hct 31.5 % (42.0-52.0) L 08/23/21 04:58 MCV 93.8 fl (80-94) 08/23/21 04:58 MCH 26.8 pg (28.0-34.0) L 08/23/21 04:58 MCHC 28.6 g/dL (30.0-36.0) L 08/23/21 04:58 RDW 18.0 % (12.1-15.1) H 08/23/21 04:58 Plt Count 257 10^3/cmm (130-400) 08/23/21 04:58 MPV 9.7 fL (7.4-10.4) 08/23/21 04:58 Gran % Cancelled 08/19/21 03:45 Neut % (Auto) 55.8 % 08/23/21 04:58 Lymph % (Auto) 23.5 % 08/23/21 04:58 [place] % (Auto) 10.9 % 08/23/21 04:58 Eos % (Auto) 8.9 % 08/23/21 04:58 Baso % (Auto) 0.7 % 08/23/21 04:58 Neut # (Auto) 2.57 10^3/uL (1.8-7.7) 08/23/21 04:58 Lymph # (Auto) 1.1 10^3/uL (0.8-4.8) 08/23/21 04:58 [place] # (Auto) 0.5 10^3/uL (0.2-0.9) 08/23/21 04:58 Eos # (Auto) 0.4 10^3/uL (0.0-0.8) 08/23/21 04:58 Baso # (Auto) 0.0 10^3/uL (0.0-0.1) 08/23/21 04:58 Absolute Gran (auto) Cancelled 08/19/21 03:45 Nucleated RBC % (auto) 0 % 08/23/21 04:58 Nucleated RBCs # 0.0 /100WBC 08/23/21 04:58 PT 28.80 SECONDS (12.1-14.9) H 08/23/21 04:58 INR 2.66 (0.8-1.2) H 08/23/21 04:58 Specimen Type Arterial 08/18/21 21:32 Sample Site Radial, right 08/18/21 21:32 ABG pH 7.36 (7.35-7.45) 08/18/21 21:32 ABG pCO2 80.5 mmHg (35-45) H* 08/18/21 21:32 ABG pO2 60.6 mmHg (80.0-100.0) L 08/18/21 21:32 ABG HCO3 45.5 mmol/L (22-26) H 08/18/21 21:32 ABG Base Excess 17.4 mmol/L (-2.0-2.0) H 08/18/21 21:32 Ronald Test Pos 08/18/21 21:32 Hematocrit 27.5 % (42-52) L 08/18/21 21:32 O2 Delivery Device Nc 08/18/21 21:32 O2 Liters/Min 4.0 % 08/18/21 21:32 Mutuel Teller ID Justina 08/18/21 21:32 Sodium 139 mmol/L (136-145) 08/23/21 04:58 Potassium 4.0 mmol/L (3.5-5.1) 08/23/21 04:58 Chloride 97 mmol/L (98-107) L 08/23/21 04:58 Carbon Dioxide 37 mmol/L (22-29) H 08/23/21 04:58 Anion Gap 9.0 (5-19) 08/23/21 04:58 BUN 12 mg/dL (8-23) 08/23/21 04:58 Creatinine 0.4 mg/dL (0.7-1.2) L 08/23/21 04:58 GFR Calculation 216.6 mL/min (90-130) H 08/23/21 04:58 Glucose 124 mg/dL (65-115) H 08/23/21 04:58 POC Glucose 117 mg/dL (70-110) H 08/20/21 10:48 Calculated Osmolality 289 mOsm/kg (285-295) 08/23/21 04:58 Calcium 9.6 mg/dL (8.5-10.5) 08/23/21 04:58 Magnesium 2.0 mg/dL (1.7-2.3) 08/19/21 03:45 Iron 43 ug/dL (59-158) L 08/18/21 23:19 TIBC 399 mcg/dl 08/18/21 23:19 % Saturation 10.7 % (20-50) L 08/18/21 23:19 Unsat Iron Binding 356 ug/dL (112-347) H 08/18/21 23:19 Ferritin 72 ng/mL (30-400) 08/18/21 23:19 Total Bilirubin 0.5 mg/dL (0.15-1.2) 08/19/21 03:45 AST 24 U/L (0-40) 08/19/21 03:45 ALT 10 U/L (0-41) 08/19/21 03:45 Alkaline Phosphatase 72 IU/L (40-130) 08/19/21 03:45 Troponin T Baseline 17 ng/L (0-15) H 08/18/21 21:39 Troponin T 120 Minute 17.08 ng/L (0-15) H 08/18/21 23:18 Delta Troponin T 0.08 ABS# (0-10) 08/18/21 23:18 Troponin T Hi Sens 6Hr 15.20 ng/L (0-15) H 08/19/21 03:45 Troponin T Hi Sens 6Hr Delta -1.80 ng/L (0-12) L 08/19/21 03:45 NT-Pro-B Natriuret Pep 685 pg/mL (0-125) H 08/18/21 21:39 Total Protein 6.7 g/dL (6.6-8.7) 08/19/21 03:45 Albumin 3.3 g/dL (3.5-5.2) L 08/19/21 03:45 Globulin 3.4 g/dL (1.3-4.6) 08/19/21 03:45 Vitamin B12 315 pg/mL (232-1245) 08/18/21 21:39 Folate 12.9 ng/mL (4.5-32.2) 08/19/21 03:45 Procalcitonin 0.05 ng/mL (0-0.5) 08/18/21 21:39 Urine Color Straw (Yellow) 08/19/21 11:35 Urine Appearance Cloudy (CLEAR) 08/19/21 11:35 Urine pH 5 (5-7) 08/19/21 11:35 Ur Specific [place] 1.020 (1.005-1.030) 08/19/21 11:35 Urine Protein Neg (Negative) 08/19/21 11:35 Urine Glucose (UA) Norm (Normal) 08/19/21 11:35 Urine Ketones Negative (Negative) 08/19/21 11:35 Urine Blood 3+ (Negative) H 08/19/21 11:35 Urine Nitrate Negative (Negative) 08/19/21 11:35 Urine Bilirubin Neg (Negative) 08/19/21 11:35 Urine Urobilinogen Neg mg/dL (Negative) 08/19/21 11:35 Ur Leukocyte Esterase 2+ (Negative) H 08/19/21 11:35 Urine RBC Too numerous to cnt /hpf (0-2) H 08/19/21 11:35 Urine WBC Too numerous to cnt /hpf (0-5) H 08/19/21 11:35 Ur Squamous Epith Cells Rare /hpf (0-5) 08/19/21 11:35 Amorphous Sediment Not Reportable 08/19/21 11:35 Urine Bacteria 2+ /hpf (NONE) H 08/19/21 11:35 Coronavirus 229E (PCR) Not detected (NOT DETECT) 08/18/21 22:21 SARS-CoV-2 (PCR) Not detected (NOT DETECT) 08/18/21 22:21 Vitals Last Vital Signs Temp 97.8 F 08/23/21 07:44 Pulse 67 08/23/21 08:04 Resp 20 H 08/23/21 08:04 BP 141/77 08/23/21 07:44 Pulse Ox 95 08/23/21 08:04 Discharge Plan Discharge Patient Disposition: Home Condition: Stable Prescriptions: New sotalol 80 mg tablet 80 mg PO BID 30 Days Qty: 60 0RF furosemide 40 mg Tablet 40 mg PO Q12H 30 Days Qty: 60 0RF Continued omeprazole 40 mg Capsule,Delayed Release(Dr/Ec) 40 mg PO QAM 0RF hydrocodone-acetaminophen 10-325 mg tablet 1 tab PO Q6H PRN (Reason: Pain) 0RF tamsulosin 0.4 mg Capsule 0.4 mg PO QAM 0RF multivitamin Tablet 1 tab PO DAILY 0RF acetaminophen 500 mg Tablet 500 - 1,000 mg PO Q4H PRN (Reason: Pain) 0RF warfarin 5 mg tablet 5 mg PO BID 0RF Changed potassium chloride 10 mEq capsule, extended release 40 meq PO DAILY Qty: 30 0RF Discontinued sotalol 120 mg tablet 120 mg PO Q12H 0RF Lasix 80 mg tablet 80 mg PO QAM 0RF Lasix 20 mg tablet 20 mg PO QPM 0RF Discharge Orders: Discharge Order (Routine); Ordered 08/23/21 Ordered By: Harris Pierson Referrals: Robert Mustafa [Primary Care Provider] - Discharge Diet: Cardiac Discharge Activity: Resume usual activity Patient Instructions: Heart Failure (GEN), Opioid Safety Activity Restrictions/Additional Instructions: -daily weights -Fluid restrictions 1500 cc -Take Lasix 40 twice daily with potassium replacement -I have decreased her sotalol to 80 twice daily -Follow-up with cardiology in 1 week Discharge Attestations Time Spent in Discharge Care*: less than 30 min Status at Discharge: Cognitive status at discharge: cognitively intact , Behavioral status at discharge: cooperative , Quality Metrics Clinical Quality Measures [ No reported AMI, CVA or VTE this stay] Coding Level of Care Code Acute Chg FW DC note Diagnoses Congestive heart failure I50.9 Pleural effusion J90 Chronic hypercapnic respiratory failure J96.12
[2021-08-23] MEDS: sotalol 80 mg Tablet 120 MG PO (14:16)
[2021-08-23] MEDS: FUROsemide 40 mg Tablet PO (14:17)
== END 2021-08-23 17:02 | disposition home or self-care (01) | DRG 291 ==
LOC: ER 22:50 → MEDSURG 08-19 00:32
PROVIDERS: Internal Medicine; Admitting Provider Internal Medicine; Emergency Provider Emergency Medicine; PCP Family Medicine; Visit Provider Family Medicine
DX: I11.0 Hypertensive heart disease with heart failure (principal); I50.33 Acute on chronic diastolic (congestive) heart failure; J96.12 Chronic respiratory failure with hypercapnia; J90 Pleural effusion, not elsewhere classified; Z68.43 Body mass index [BMI] 50.0-59.9, adult; I50.9 Heart failure, unspecified; E66.01 Morbid (severe) obesity due to excess calories; E11.9 Type 2 diabetes mellitus without complications; K21.9 Gastro-esophageal reflux disease without esophagitis; Z87.891 Personal history of nicotine dependence; I44.0 Atrioventricular block, first degree; I48.91 Unspecified atrial fibrillation; J44.9 Chronic obstructive pulmonary disease, unspecified; Z79.01 Long term (current) use of anticoagulants; Z99.81 Dependence on supplemental oxygen
CPT/HCPCS: 36415; 36416; 36600; 51702; 71045; 80048; 80053; 81001; 82607; 82728; 82746; 82803; 82962; 83540; 83550; 83735; 83880; 84145; 84484; 85025; 85610; 87086; 87635; 93005; 93970; 94640; 94660; 96365; 96367; 96375; 97110; 97116; 97162; 97530; 99285; J0456; J0696; J1940; J7050

== ENCOUNTER 2021-09-28 14:15 | Outpatient (CLI) | payer MEDICARE, SELFPAY ==
[2021-09-28 16:19] LABS: Reticulocyte % 2.2 % (0.5-2.0)
[2021-09-28 16:23] LABS: INR 1.75 (0.8-1.2)
[2021-09-28 16:30] LABS: Basophils % 0.8 %; Eosinophils # 0.4 10^3/uL (0.0-0.8); Eosinophils % 9.2 %; Hematocrit 28.4 % (42.0-52.0); Hemoglobin 8.2 g/dL (11.7-16.6); Lymphocytes # 1.2 10^3/uL (0.8-4.8); Lymphocytes % 31.9 %; Mean Corpuscular HGB Conc 28.9 g/dL (30.0-36.0); Mean Corpuscular Hemoglobin 27.2 pg (28.0-34.0); Mean Platelet Volume 10.3 fL (7.4-10.4); Monocytes # 0.5 10^3/uL (0.2-0.9); Monocytes % 12.6 %; Neutrophils # 1.73 10^3/uL (1.8-7.7); Neutrophils % 45.2 %; Nucleated Red Blood Cells % 0 %; Platelet Count 256 10^3/cmm (130-400); Red Blood Count 3.02 10^6/uL (4.1-5.3); Red Cell Distribution Width 17.5 % (12.1-15.1); White Blood Count 3.8 10^3/uL (4.0-10.0)
[2021-09-28 16:31] LABS: Folate Level 5.8 ng/mL (4.5-32.2)
[2021-09-28 16:32] LABS: Anion Gap 8.9 (5-19); Blood Urea Nitrogen 11 mg/dL (8-23); Calcium 9.4 mg/dL (8.5-10.5); Carbon Dioxide 40 mmol/L (22-29); Chloride 93 mmol/L (98-107); Ferritin 81 ng/mL (30-400); Glomerular Filtration Rate 216.6 mL/min (90-130); Glucose 89 mg/dL (65-115); Iron 28 ug/dL (59-158); Osmolality Calculated 285 mOsm/kg (285-295); Percent Saturation 7.4 % (20-50); Potassium 3.9 mmol/L (3.5-5.1); Sodium 138 mmol/L (136-145); Total Iron Binding Capacity 375 mcg/dl; Unsaturated Iron Binding 347 ug/dL (112-347); Vitamin B12 270 pg/mL (232-1245)
== END 2021-09-28 14:16 | disposition home or self-care (01) ==
PROVIDERS: PCP Family Medicine; Visit Provider Nurse Practitioner Family
DX: Z51.81 Encounter for therapeutic drug level monitoring (principal); Z79.01 Long term (current) use of anticoagulants; D64.9 Anemia, unspecified; Z79.899 Other long term (current) drug therapy
CPT/HCPCS: 80048; 82607; 82728; 82746; 83540; 83550; 85025; 85045; 85610

== ENCOUNTER 2021-10-11 18:25 | Outpatient (CLI) | payer MEDICARE, SELFPAY ==
[2021-10-11 19:14] LABS: INR 1.18 (0.8-1.2)
== END 2021-10-11 18:26 | disposition home or self-care (01) ==
LOC: LAB 18:28
PROVIDERS: PCP Family Medicine; Visit Provider Family Medicine
DX: Z79.01 Long term (current) use of anticoagulants (principal); I50.30 Unspecified diastolic (congestive) heart failure
CPT/HCPCS: 85610

== ENCOUNTER 2021-10-21 18:37 | Outpatient (CLI) | payer MEDICARE, SELFPAY ==
[2021-10-22 06:21] LABS: INR 2.06 (0.8-1.2)
== END 2021-10-21 18:38 | disposition home or self-care (01) ==
LOC: LAB 18:41
PROVIDERS: Internal Medicine; PCP Family Medicine; Visit Provider Family Medicine
DX: Z79.01 Long term (current) use of anticoagulants (principal); I48.91 Unspecified atrial fibrillation
CPT/HCPCS: 85610

== ENCOUNTER 2021-11-04 14:30 | Outpatient (CLI) | payer MEDICARE, SELFPAY ==
[2021-11-04 15:37] LABS: INR 2.31 (0.8-1.2)
== END 2021-11-04 14:31 | disposition home or self-care (01) ==
LOC: LAB 14:34
PROVIDERS: PCP Family Medicine; Visit Provider Nurse Practitioner Family
DX: Z79.01 Long term (current) use of anticoagulants (principal)
CPT/HCPCS: 85610

== ENCOUNTER 2021-11-11 12:29 | Outpatient (CLI) | payer MEDICARE, SELFPAY ==
[2021-11-11 12:39] LABS: Add Urine Microscopic? NO; Charge for UA Resulting for Rev
[2021-11-11 12:43] LABS: Bilirubin Urine Neg (Negative); Blood Urine Neg (Negative); Glucose Urine UA Norm (Normal); Ketones Urine Negative (Negative); Leukocyte Esterase Urine Negative (Negative); Nitrate Urine Negative (Negative); Protein Urine Neg (Negative); Urine Appearance Hazy (CLEAR); Urine Color Yellow (Yellow); Urobilinogen Urine Norm (Negative); pH Urine 5 (5-7)
[2021-11-11 12:47] LABS: Basophils % 0.6 %; Eosinophils # 0.6 10^3/uL (0.0-0.8); Eosinophils % 11.7 %; Hematocrit 31.3 % (42.0-52.0); Lymphocytes # 1.4 10^3/uL (0.8-4.8); Lymphocytes % 28.7 %; Mean Corpuscular HGB Conc 28.8 g/dL (30.0-36.0); Mean Corpuscular Hemoglobin 27.8 pg (28.0-34.0); Mean Corpuscular Volume 96.6 fl (80-94); Mean Platelet Volume 9.9 fL (7.4-10.4); Monocytes # 0.6 10^3/uL (0.2-0.9); Monocytes % 12.8 %; Neutrophils # 2.15 10^3/uL (1.8-7.7); Neutrophils % 45.8 %; Nucleated Red Blood Cells % 0 %; Platelet Count 218 10^3/cmm (130-400); Red Blood Count 3.24 10^6/uL (4.1-5.3); Red Cell Distribution Width 18.1 % (12.1-15.1); White Blood Count 4.7 10^3/uL (4.0-10.0)
[2021-11-11 13:02] LABS: Alanine Aminotransferase 19 U/L (0-41); Albumin Level 3.4 g/dL (3.5-5.2); Alkaline Phosphatase 80 IU/L (40-130); Anion Gap 7.2 (5-19); Aspartate Amino Transferase 33 U/L (0-40); Blood Urea Nitrogen 18 mg/dL (8-23); Calcium 9.4 mg/dL (8.5-10.5); Carbon Dioxide 40 mmol/L (22-29); Chloride 91 mmol/L (98-107); Globulin 3.5 g/dL (1.3-4.6); Glomerular Filtration Rate 167.4 mL/min (90-130); Glucose 148 mg/dL (65-115); Osmolality Calculated 283 mOsm/kg (285-295); Potassium 4.2 mmol/L (3.5-5.1); Sodium 134 mmol/L (136-145); Total Bilirubin 0.2 mg/dL (0.15-1.2); Total Protein 6.9 g/dL (6.6-8.7)
[2021-11-11 14:07] LABS: Slide Review Slide Review Perform
== END 2021-11-11 12:30 | disposition home or self-care (01) ==
LOC: LAB 12:31
PROVIDERS: PCP Family Medicine; Visit Provider Family Medicine
DX: I50.32 Chronic diastolic (congestive) heart failure (principal); R39.89 Other symptoms and signs involving the genitourinary system
CPT/HCPCS: 80053; 81003; 85025; 87077; 87086; 87186

== ENCOUNTER 2021-11-18 16:31 | Outpatient (RCR) | payer MEDICARE, SELFPAY ==
[2021-11-18 16:50] LABS: Red Blood Count 3.51 10^6/uL (4.1-5.3); White Blood Count 5.1 10^3/uL (4.0-10.0)
[2021-11-18 16:51] LABS: Basophils % 0.6 %; Eosinophils # 0.8 10^3/uL (0.0-0.8); Eosinophils % 15.1 %; Hematocrit 32.5 % (42.0-52.0); Hemoglobin 9.5 g/dL (11.7-16.6); Lymphocytes # 1.2 10^3/uL (0.8-4.8); Lymphocytes % 23.9 %; Mean Corpuscular HGB Conc 29.2 g/dL (30.0-36.0); Mean Corpuscular Hemoglobin 27.1 pg (28.0-34.0); Mean Corpuscular Volume 92.6 fl (80-94); Mean Platelet Volume 10.1 fL (7.4-10.4); Monocytes # 0.6 10^3/uL (0.2-0.9); Monocytes % 12.4 %; Neutrophils # 2.44 10^3/uL (1.8-7.7); Neutrophils % 47.8 %; Nucleated Red Blood Cells % 0 %; Platelet Count 277 10^3/cmm (130-400); Red Cell Distribution Width 18.6 % (12.1-15.1)
[2021-11-18 17:08] LABS: Alanine Aminotransferase 20 U/L (0-41); Albumin Level 3.5 g/dL (3.5-5.2); Alkaline Phosphatase 86 IU/L (40-130); Aspartate Amino Transferase 41 U/L (0-40); Blood Urea Nitrogen 11 mg/dL (8-23); Calcium 8.2 mg/dL (8.5-10.5); Carbon Dioxide 38 mmol/L (22-29); Chloride 88 mmol/L (98-107); Globulin 3.1 g/dL (1.3-4.6); Glomerular Filtration Rate 216.6 mL/min (90-130); Glucose 107 mg/dL (65-115); Osmolality Calculated 278 mOsm/kg (285-295); Sodium 134 mmol/L (136-145); Total Bilirubin 0.3 mg/dL (0.15-1.2); Total Protein 6.6 g/dL (6.6-8.7)
[2021-11-18 17:09] LABS: Anion Gap 12.5 (5-19); Potassium 4.5 mmol/L (3.5-5.1)
== END 2021-11-29 23:59 | disposition home or self-care (01) ==
LOC: LAB 16:31
PROVIDERS: PCP Family Medicine; Visit Provider Nurse Practitioner Family
DX: I50.9 Heart failure, unspecified (principal)
CPT/HCPCS: 80053; 85025

== ENCOUNTER 2021-12-07 15:37 | Outpatient (CLI) | payer MEDICARE, SELFPAY ==
[2021-12-07 16:25] LABS: Alanine Aminotransferase 20 U/L (0-41); Albumin Level 4.1 g/dL (3.5-5.2); Alkaline Phosphatase 90 IU/L (40-130); Anion Gap 11.6 (5-19); Aspartate Amino Transferase 38 U/L (0-40); Blood Urea Nitrogen 14 mg/dL (8-23); Calcium 9.9 mg/dL (8.5-10.5); Carbon Dioxide 40 mmol/L (22-29); Chloride 91 mmol/L (98-107); Globulin 3.9 g/dL (1.3-4.6); Glomerular Filtration Rate 216.6 mL/min (90-130); Glucose 70 mg/dL (65-115); Osmolality Calculated 285 mOsm/kg (285-295); Potassium 4.6 mmol/L (3.5-5.1); Sodium 138 mmol/L (136-145); Total Bilirubin 0.3 mg/dL (0.15-1.2)
== END 2021-12-07 15:38 | disposition home or self-care (01) ==
LOC: LAB 15:40
PROVIDERS: PCP Family Medicine; Visit Provider Family Medicine
DX: I11.0 Hypertensive heart disease with heart failure (principal)
CPT/HCPCS: 80053

== ENCOUNTER 2022-05-20 10:37 | Inpatient (IN) | payer MEDICARE, SELFPAY ==
[2022-05-20] VITALS (115 sets, daily range): BP systolic 136–206; BP diastolic 71–121; PULSE 62–93; RESP 15–33; TEMP 37.3–37.4; O2SAT 88–100; BMI 60.6
--- NOTE | 2022-05-20 10:46 | XRR_ITS ---
PROCEDURE INFORMATION: Exam: XR Chest Exam date and time: 05/20/2022 12:04 PM Age: 67 years old Clinical indication: Shortness of breath; Additional info: SOB TECHNIQUE: Imaging protocol: Radiologic exam of the chest. Views: 1 view. Total images: 4 COMPARISON: CR (CHEST, ) 08/18/2021 9:42 PM FINDINGS: Lungs: Pulmonary vascular congestion improved. Nonspecific right basilar opacities, edema and/or pneumonia. Streaky left basilar opacity favors atelectasis. Pleural spaces: There is blunting of both costophrenic angles, suggestive of small pleural effusions right greater than left. Heart/Mediastinum: Cardiomegaly. Bones/joints: Osseous structures are unchanged from the prior exam. XR/XR chest 1V portable [id number] IMPRESSION: 1. Cardiomegaly with improved pulmonary vascular congestion. 2. Nonspecific right basilar opacities, edema and/or pneumonia. 3. Streaky left basilar opacity favors atelectasis. 4. There is blunting of both costophrenic angles, suggestive of small pleural effusions right greater than left.
--- NOTE | 2022-05-20 10:46 | ECG_ITS ---
[facility] Test Date: 2022-05-20 Pat Name: Nhan Sol Department: Room: Gender: Male Drafter (Cad) Electronic: : 1955 Requested By: Stephen Choi Order Number: [id number] Sammie MD: Clovis Dave M.D. Measurements Intervals [place] Rate: 100 P: 0 NH: 0 QRS: -28 QRSD: 119 T: 72 QT: 349 QTc: 450 Interpretive Statements ATRIAL FIBRILLATION WITH RAPID VENTRICULAR RESPONSE BORDERLINE LEFT AXIS DEVIATION [QRS AXIS < -20] MODERATE INTRAVENTRICULAR CONDUCTION DELAY [110+ ms QRS DURATION] MODERATE ST DEPRESSION [0.05+ mV ST DEPRESSION] Compared to ECG 08/19/2021 05:53:49 ST (T wave) deviation now present Sinus rhythm no longer present Sinus arrhythmia no longer present First degree AV block no longer present Electronically Signed On 05-22-2022 18:22:30 BUNDLE BREAKER by Clovis Dave M.D. [id number]
--- NOTE | 2022-05-20 10:49 | W.ED.SOB ---
HPI - SOB/Dyspnea General: Chief Complaint: Shortness of Breath/Dyspnea Stated Complaint: HYPOXIA Time Seen by Provider: 05/20/22 10:41 History of Present Illness: HPI Narrative: 67-year-old male presents with shortness of breath. EMS reports that they were called for patient being short of breath not acting right. Patient is morbidly obese, has CHF. And is normally on 3 L oxygen. That when they arrived patient oxygen was in the 50s and he was decreased responsive. They were able to put him on a high flow at 8 L/min and his oxygen improved into the upper 90s. Patient then became much more alert and talkative. Patient reports that he feels fine and has no cough, fevers chills or other systemic complaints. That he woke this morning and is felt something was wrong. That he called for his brother who he lives with. That he got to where he was having a harder time talking at that point. Patient reports he was recently tested for COVID and was negative. He denies any chest pain. Patient feeling close to back to his baseline at this time. Associated symptoms: Reports orthopnea; Deny abdominal pain, chest pain, diaphoresis, dizziness, fever(s), nausea, palpitations or vomiting Review of Systems Const: Denies: fever(s), chills, fatigue or diaphoresis Eyes: Denies: change in vision or blurry vision ENMT: Denies: throat pain or ear or mastoid pain Card: Reports: orthopnea; Denies: chest pain or palpitations Resp: Reports: dyspnea; Denies: productive cough, non-productive cough or wheezing GI: Denies: abdominal pain, nausea or vomiting : Denies: flank pain Skin/Breast: Reports: rash (Patient with Candidas rash under pannus) Neuro: Denies: headache(s) or dizziness Psych: Denies: anxiety or depression PFS ED PFSH: Medical History (Updated 05/20/22 @ 14:06 by Stephen Choi DO) Acute exacerbation of chronic obstructive airways disease Atrial fibrillation Chronic anticoagulation Chronic hypercapnic respiratory failure Chronic respiratory failure with hypoxia Cor pulmonale Diabetes mellitus, type II Diastolic heart failure GERD (gastroesophageal reflux disease) History of gastric ulcer with perforation Hypersomnia Hypertension Morbid obesity with BMI of 50.0-59.9, adult Obesity On home oxygen therapy 2-3 L Pneumonia Recurrent falls Respiratory failure with hypoxia and hypercapnia Surgical History History of esophagogastroduodenoscopy History of exploratory laparotomy for perforated gastric ulcer Family History Father Cancer lung Mother Asthma CAD (coronary artery disease) Sister Cerebral aneurysm Social History Smoking and tobacco status: former smoker Quit status (tobacco): has quit using tobacco Year quit tobacco: 1978 - PD x 7 Years Second hand smoke exposure: Yes Smoking risk assessment/counseling performed?: No Alcohol intake: current Alcohol intake frequency: few times a week Alcohol type: beer Counseling given: No Counseling given: No Lives independently: Yes Household members: family Marital status: Current occupational status: disabled Previous occupational history: history of working in [employer] History of recent travel: No Current gender identity: Male Physical Exam Const: NUTRITIONAL APPEARANCE: obese morbidly obese (BMI 60) HENMT: COMMON NORMALS: hearing grossly normal bilaterally and moist oral mucous membranes Eye: COMMON NORMALS: EOMs intact bilaterally Resp: EFFORT & INSPECTION: Yes able to speak in complete sentences and No respiratory distress AUSCULTATION: other (Diminished but difficult due to body habitus) Cardio: COMMON NORMALS: regular rate and regular rhythm RATE: regular rate RHYTHM: regular rhythm GI: INSPECTION: Yes Anasarca : SCROTUM: Yes edematous Extremity: OTHER: Bilateral lower extremity edema Psych: COMMON NORMALS: mental status grossly normal, cooperative and speech normal ATTITUDE: Yes engaged SPEECH: Yes normal speech Skin: RASHES: rashes noted (Candidiasis, under pannus) OTHER: Chronic lower extremity venous stasis changes Course Vital Signs: Vital signs: Vital Signs Pulse Rate 88 05/20/22 15:38 Respiratory Rate 30 H 05/20/22 15:30 Blood Pressure 189/110 05/20/22 13:20 Pulse Oximetry 99 05/20/22 15:35 Oxygen Delivery Me thod 05/20/22 15:30 Oxygen Flow Rate 6 05/20/22 10:41 Fraction of Inspir ed Oxygen 30 05/20/22 15:35 MDM - SOB/Dyspnea Medical Decision Making Patient with acute on chronic hypercapnic respiratory failure. Patient was placed on BiPAP. Patient to be admitted to stepdown to Dr. Norton for further inpatient management. Patient showing clinical improvement on BiPAP. Patient was transferred in stable condition. Lab Data 05/20/22 11:40 05/20/22 11:40 Labs/Radiology: Radiology Impressions Chest X-Ray 05/20/22 10:46 IMPRESSION: 1. Cardiomegaly with improved pulmonary vascular congestion. 2. Nonspecific right basilar opacities, edema and/or pneumonia. 3. Streaky left basilar opacity favors atelectasis. 4. There is blunting of both costophrenic angles, suggestive of small pleural effusions right greater than left. Chest CT 05/20/22 13:58 IMPRESSION: 1. Moderate right pleural fluid collection minimal left pleural fluid collection. 2. Stable severe calcified coronary artery disease. Laboratory Results WBC 5.4 10^3/uL (4.0-10.0) 05/20/22 11:40 RBC 3.77 10^6/uL (4.1-5.3) L 05/20/22 11:40 Hgb 11.3 g/dL (11.7-16.6) L 05/20/22 11:40 Hct 38.1 % (42.0-52.0) L 05/20/22 11:40 MCV 101.1 fl (80-94) H 05/20/22 11:40 MCH 30.0 pg (28.0-34.0) 05/20/22 11:40 MCHC 29.7 g/dL (30.0-36.0) L 05/20/22 11:40 RDW 15.6 % (12.1-15.1) H 05/20/22 11:40 Plt Count 294 10^3/cmm (130-400) 05/20/22 11:40 MPV 9.4 fL (7.4-10.4) 05/20/22 11:40 Neut % (Auto) 68.3 % 05/20/22 11:40 Lymph % (Auto) 21.1 % 05/20/22 11:40 [place] % (Auto) 9.1 % 05/20/22 11:40 Eos % (Auto) 0.4 % 05/20/22 11:40 Baso % (Auto) 0.4 % 05/20/22 11:40 Neut # (Auto) 3.69 10^3/uL (1.8-7.7) 05/20/22 11:40 Lymph # (Auto) 1.1 10^3/uL (0.8-4.8) 05/20/22 11:40 [place] # (Auto) 0.5 10^3/uL (0.2-0.9) 05/20/22 11:40 Eos # (Auto) 0.0 10^3/uL (0.0-0.8) 05/20/22 11:40 Baso # (Auto) 0.0 10^3/uL (0.0-0.1) 05/20/22 11:40 Nucleated RBC % (auto) 0 % 05/20/22 11:40 Nucleated RBCs # 0.0 /100WBC 05/20/22 11:40 PT 23.10 SECONDS (12.1-14.9) H 05/20/22 11:40 INR 2.01 (0.8-1.2) H 05/20/22 11:40 D-Dimer 0.57 ug/mIFEU (0-0.59) 05/20/22 11:40 Specimen Type Arterial 05/20/22 12:40 Sample Site Radial, right 05/20/22 12:40 ABG pH 7.34 (7.35-7.45) L 05/20/22 12:40 ABG pCO2 84.1 mmHg (35-45) H* 05/20/22 12:40 ABG pO2 99.4 mmHg (80.0-100.0) 05/20/22 12:40 ABG HCO3 45.7 mmol/L (22-26) H 05/20/22 12:40 ABG Base Excess 16.4 mmol/L (-2.0-2.0) H 05/20/22 12:40 Ronald Test Pos 05/20/22 12:40 Hematocrit 35.5 % (42-52) L 05/20/22 12:40 Hgb O2 Saturation 96.0 % (95-100) 05/20/22 10:58 Carboxyhemoglobin 1.7 %THgb (0.4-20.1) 05/20/22 10:58 Methemoglobin < 0.0 % (0.4-1.5) L 05/20/22 10:58 Total Hemoglobin 11.5 g/dL (14-18) L 05/20/22 10:58 O2 Delivery Device Bipap 05/20/22 12:40 O2 Liters/Min 7.0 % 05/20/22 10:58 FiO2 40.0 % 05/20/22 12:40 Desk Director ID Popeye 05/20/22 12:40 Sodium 131 mmol/L (136-145) L 05/20/22 11:40 Potassium 4.0 mmol/L (3.5-5.1) 05/20/22 11:40 Chloride 84 mmol/L (98-107) L 05/20/22 11:40 Carbon Dioxide 45 mmol/L (22-29) H* 05/20/22 11:40 Anion Gap 6.0 (5-19) 05/20/22 11:40 BUN 18 mg/dL (8-23) 05/20/22 11:40 Creatinine 0.5 mg/dL (0.7-1.2) L 05/20/22 11:40 GFR Calculation 166.9 mL/min (90-130) H 05/20/22 11:40 Glucose 164 mg/dL (65-115) H 05/20/22 11:40 Calculated Osmolality 278 mOsm/kg (285-295) L 05/20/22 11:40 Calcium 9.3 mg/dL (8.5-10.5) 05/20/22 11:40 Magnesium 2.0 mg/dL (1.7-2.3) 05/20/22 11:40 Iron 37 ug/dL (59-158) L 05/20/22 11:40 TIBC 403 mcg/dl 05/20/22 11:40 % Saturation 9.1 % (20-50) L 05/20/22 11:40 Unsat Iron Binding 366 ug/dL (112-347) H 05/20/22 11:40 Total Bilirubin 0.4 mg/dL (0.15-1.2) 05/20/22 11:40 AST 33 U/L (0-40) 05/20/22 11:40 ALT 22 U/L (0-41) 05/20/22 11:40 Alkaline Phosphatase 84 U/L (40-130) 05/20/22 11:40 Troponin T Gen 5 ng/L 25 ng/L (0-15) H 05/20/22 11:40 NT-Pro-B Natriuret Pep 601 pg/mL (0-125) H 05/20/22 11:40 Total Protein 7.4 g/dL (6.6-8.7) 05/20/22 11:40 Albumin 3.3 g/dL (3.5-5.2) L 05/20/22 11:40 Globulin 4.1 g/dL (1.3-4.6) 05/20/22 11:40 Vitamin B12 389 pg/mL (232-1245) 05/20/22 11:40 Procalcitonin 0.08 ng/mL (0-0.5) 05/20/22 11:40 TSH 0.44 uIU/mL (0.27-4.20) 05/20/22 11:40 Discharge Plan Discharge Patient Disposition: Admitted As Inpatient Admit Provider: Fab Norton Clinical Impression: Morbid obesity with BMI of 50.0-59.9, adult, Chronic hypercapnic respiratory failure, Acute hypercapnic respiratory failure Condition: Stable Coding Level of Care Code ED Commercial Lines Manager for Chg Fwd Exam Comprehensive
[2022-05-20 11:11] LABS: ABG PH Result 7.33 (7.35-7.45); Arterial Blood Gas Hematocrit 35.1 % (42-52); Base Excess ABG 15.8 mmol/L (-2.0-2.0); Blood Gas Allen Test Pos; Blood Gas Operator Identificat MONRO; Blood Gas Sample Site Radial, left; Blood Gas Sample Type Arterial; Carboxyhemoglobin 1.7 %THgb (0.4-20.1); HCO3 ABG 45.4 mmol/L (22-26); Methemoglobin < 0.0 % (0.4-1.5); Oxygen Device NC; PO2 ABG 86.7 mmHg (80.0-100.0); Total Hemoglobin 11.5 g/dL (14-18)
[2022-05-20] MEDS: ipratropium-albuterol 3 mL Neb INHALATION ×3 (11:25→21:01)
[2022-05-20 12:08] LABS: Basophils % 0.4 %; Eosinophils % 0.4 %; Hematocrit 38.1 % (42.0-52.0); Hemoglobin 11.3 g/dL (11.7-16.6); Lymphocytes # 1.1 10^3/uL (0.8-4.8); Lymphocytes % 21.1 %; Mean Corpuscular HGB Conc 29.7 g/dL (30.0-36.0); Mean Corpuscular Volume 101.1 fl (80-94); Mean Platelet Volume 9.4 fL (7.4-10.4); Monocytes # 0.5 10^3/uL (0.2-0.9); Monocytes % 9.1 %; Neutrophils # 3.69 10^3/uL (1.8-7.7); Neutrophils % 68.3 %; Nucleated Red Blood Cells % 0 %; Platelet Count 294 10^3/cmm (130-400); Red Blood Count 3.77 10^6/uL (4.1-5.3); Red Cell Distribution Width 15.6 % (12.1-15.1); White Blood Count 5.4 10^3/uL (4.0-10.0)
[2022-05-20 12:33] LABS: Alanine Aminotransferase 22 U/L (0-41); Albumin Level 3.3 g/dL (3.5-5.2); Alkaline Phosphatase 84 U/L (40-130); Aspartate Amino Transferase 33 U/L (0-40); Blood Urea Nitrogen 18 mg/dL (8-23); Calcium 9.3 mg/dL (8.5-10.5); Carbon Dioxide 45 mmol/L (22-29); Chloride 84 mmol/L (98-107); Globulin 4.1 g/dL (1.3-4.6); Glomerular Filtration Rate 166.9 mL/min (90-130); Glucose 164 mg/dL (65-115); Osmolality Calculated 278 mOsm/kg (285-295); Sodium 131 mmol/L (136-145); Total Bilirubin 0.4 mg/dL (0.15-1.2); Total Protein 7.4 g/dL (6.6-8.7)
[2022-05-20 12:34] LABS: Troponin T (5th) Once 25 ng/L (0-15)
[2022-05-20] MEDS: enalaprilat 1.25 mg/mL Inj IVP (12:40)
[2022-05-20 12:43] LABS: NT Pro B Type Natriuretic Pept 601 pg/mL (0-125)
[2022-05-20 13:02] LABS: Blood Gas Sample Site Radial, right; Oxygen Device BIPAP
--- NOTE | 2022-05-20 13:58 | CTR_ITS ---
PROCEDURE INFORMATION: Exam: CT Chest Without Contrast; Diagnostic Exam date and time: 05/20/2022 2:39 PM Age: 67 years old Clinical indication: Shortness of breath; Additional info: Hypercapic resp faliure TECHNIQUE: Imaging protocol: Diagnostic computed tomography of the chest without contrast. Radiation optimization: All CT scans at this facility use at least one of these dose optimization techniques: automated exposure control; mA and/or kV adjustment per patient size (includes targeted exams where dose is matched to clinical indication); or iterative reconstruction. COMPARISON: CT angio chest PE protcl [id number] 06/22/2021 12:35 PM RADIATION DOSE METRICS: Total DLP (mGy-cm): 1015.97 FINDINGS: Lungs: Unremarkable. No consolidation. No masses. Pleural spaces: Moderate right pleural fluid collection minimal left pleural fluid collection. Heart: Stable severe calcified coronary artery disease. Lymph nodes: Unremarkable. No enlarged lymph nodes. Vasculature: Aberrant origin of the right subclavian artery which is usually not associated with other congenital heart disease. This is essentially a normal variant. Calcification of the thoracic aorta and/or great vessels consistent with atherosclerotic vessel disease. Spleen: One or more accessory splenules. Bones/joints: Severe thoracic spondylosis. Soft tissues: Examination is limited by artifact from one or both arms by the patient's side. CT/CT chest [facility] [id number] IMPRESSION: 1. Moderate right pleural fluid collection minimal left pleural fluid collection. 2. Stable severe calcified coronary artery disease.
--- NOTE | 2022-05-20 14:05 | PC.PHAR ---
PT UNABLE TO VERIFY - VERIFIED BY JENNIFER AND EXT MED HISTORY
[2022-05-20 14:21] LABS: INR 2.01 (0.8-1.2)
[2022-05-20 14:23] LABS: D Dimer 0.57 ug/mIFEU (0-0.59)
[2022-05-20 14:46] LABS: Procalcitonin 0.08 ng/mL (0-0.5); Thyroid Stimulating Hormone 0.44 uIU/mL (0.27-4.20); Vitamin B12 389 pg/mL (232-1245)
[2022-05-20 14:57] LABS: Iron 37 ug/dL (59-158); Percent Saturation 9.1 % (20-50); Total Iron Binding Capacity 403 mcg/dl; Unsaturated Iron Binding 366 ug/dL (112-347)
--- NOTE | 2022-05-20 15:49 | P.HP_ITS ---
Providers/Chief Complaint Admitting Physician: Fab Norton MD Primary Care Provider: Robert Mustafa Chief Complaint: HYPOXIA History of Present Illness Nhan Sol is a 67 year old male with past medical history of morbid obesity, obstructive sleep apnea/pickwickian syndrome, chronic hypercapnic respiratory failure, diastolic heart failure, atrial fibrillation on warfarin presented to the ER today because of being more short of breath than normal since last night. When seen by the EMS he was found to have saturation down in mid 70s hence he was brought to the ER. In the ER he was found to be in hypercapnic respiratory distress with pH of 7.33 and PCO2 of 88 hence was placed on BiPAP. On examination patient is being wheeled to [facility] currently on room air, drowsy but awake. States he is been having difficulty with it since last night. Denies any further complaints. Patient is not compliant to his CPAP. Review of Systems General: Reports: ROS unobtainable due to mental status Medications/Allergies Home Medications Medication Instructions Recorded Confirmed Last Taken Type omeprazole 40 mg capsule,delayed 40 mg PO QAM 10/17/20 05/20/22 03/30/21 08:00 History release hydrocodone 10 mg-acetaminophen 1 tab PO Q6H PRN Pain 12/31/20 05/20/22 03/30/21 08:00 History 325 mg tablet tamsulosin 0.4 mg capsule 0.4 mg PO QAM 12/31/20 05/20/22 03/30/21 08:00 History acetaminophen 500 mg tablet 500 - 1,000 mg PO Q4H PRN Pain 06/20/21 05/20/22 Unknown History multivitamin 1 tab PO DAILY 06/20/21 05/20/22 Unknown History warfarin 5 mg tablet 5 mg PO BID 06/20/21 05/20/22 Unknown History potassium chloride 10 mEq 40 meq PO DAILY #30 caps 08/23/21 05/20/22 Unknown Rx capsule,extended release aspirin 81 mg chewable tablet 81 mg PO DAILY 05/20/22 05/20/22 Unknown History bumetanide 2 mg tablet 2 mg PO DAILY 05/20/22 05/20/22 Unknown History folic acid 1 mg tablet 1 mg PO DAILY 05/20/22 05/20/22 Unknown History furosemide 80 mg tablet (Lasix) 80 mg PO DAILY 05/20/22 05/20/22 Unknown History metolazone 5 mg tablet 5 mg PO DAILY 05/20/22 05/20/22 Unknown History paroxetine HCl 30 mg tablet 30 mg PO DAILY 05/20/22 05/20/22 Unknown History sotalol 120 mg tablet 120 mg PO DAILY 05/20/22 05/20/22 Unknown History spironolactone 25 mg tablet 25 mg PO DAILY 05/20/22 05/20/22 Unknown History Allergies Allergy/AdvReac Type Severity Reaction Status Date / Time tape Allergy Unknown Uncoded 05/04/21 10:28 PFSH Acute PFSH: Medical History (Updated 05/20/22 @ 16:02 by Fab Norton MD) Acute exacerbation of chronic obstructive airways disease Atrial fibrillation Chronic anticoagulation Chronic hypercapnic respiratory failure Chronic respiratory failure with hypoxia Cor pulmonale Diabetes mellitus, type II Diastolic heart failure GERD (gastroesophageal reflux disease) History of gastric ulcer with perforation Hypersomnia Hypertension Morbid obesity with BMI of 50.0-59.9, adult Obesity On home oxygen therapy 2-3 L Pickwickian syndrome Pneumonia Recurrent falls Respiratory failure with hypoxia and hypercapnia Surgical History History of esophagogastroduodenoscopy History of exploratory laparotomy for perforated gastric ulcer Family History Father Cancer lung Mother Asthma CAD (coronary artery disease) Sister Cerebral aneurysm Social History Smoking and tobacco status: former smoker Quit status (tobacco): has quit using tobacco Year quit tobacco: 1978 - PD x 7 Years Second hand smoke exposure: Yes Smoking risk assessment/counseling performed?: No Alcohol intake: current Alcohol intake frequency: few times a week Alcohol t ype: beer Counseling given: No Counseling given: No Lives independently: Yes Household members: family Marital status: Current occupational status: disabled Previous occupational history: history of working in [employer] History of recent travel: No Current gender identity: Male Vitals/I&O/Wt Last Vital Signs Pulse 88 05/20/22 15:38 Resp 30 H 05/20/22 15:30 BP 189/110 05/20/22 13:20 Pulse Ox 99 05/20/22 15:35 O2 Del Method 05/20/22 15:30 O2 Flow Rate 6 05/20/22 10:41 FiO2 30 05/20/22 15:35 Weight last 48 hrs Weight 225.889 kg Physical Exam Narrative: EXAM NARRATIVE: General: No acute distress, AO x3, on BiPAP ventilation HEENT: PERRLA, pupils bilaterally equal and reactive Chest:Bronchial breath sounds b/l ,decreased air entry, equal good air entry bilaterally, no more fine basal crackles CVS: S1-S2 regular, no murmurs, no tachycardia, no gallops, no rubs Abdomen: Soft, nontender, no organomegaly, bowel sounds present, morbidly obese Neuro: No focal deficits, no facial deformity, AO x3, power 5/5 in all limbs Extremities: Open wound placement on the right side under the pannus with fresh bleeding Data 05/20/22 11:40 05/20/22 11:40 A&P Assessment and plan (1) Acute hypercapnic respiratory failure: Continue with BiPAP ventilation. Baseline CO2 seems to be around 70. Last ABG showing 87. N.p.o. for now. Check CT chest without contrast to rule out pneumonia. For now empirically start patient on Zosyn. Urine Legionella, bacterial antigen, sputum culture, blood culture. At home patient is on metolazone 5 mg daily, Bumex 2 mg daily. For now continue with metolazone. Switch to IV Lasix 80 mg twice daily. Willingham catheter. Strict input output charting. DuoNeb every 6 hour, budesonide twice daily. Oxygen supplementation keeping saturation over 88%. (2) Morbid obesity with BMI of 50.0-59.9, adult: (3) Pickwickian syndrome: (4) Congestive heart failure: (5) Afib: Rate controlled currently. Continue with home dose of sotalol. Continue home dose of warfarin. Check INR daily. (6) Abdominal pannus: With open pressure ulcer wounds on the right side. Hydrofera Blue. Plan Hypertension: Goal blood pressure less than 140/90 Christofer. Continue with home dose of sotalol. We will add medication as per blood pressure goals. Full code. Protonix for PUD prophylaxis. Warfarin will suffice for DVT prophylaxis. Attestations Medical Necessity Statement*: Admission for more than 2 midnights for management of acute on chronic hypercapnic respiratory failure in a patient who is morbidly obese with pickwickian syndrome Time Spent in Patient Care: Greater than 35 minutes Coding Level of Care Code Acute Mission[facility] Coordinator for [facility] Diagnoses Acute hypercapnic respiratory failure J96.02 Morbid obesity with BMI of 50.0-59.9, adult E66.01; Z68.43 Pickwickian syndrome E66.2 Congestive heart failure I50.9 Afib I48.91 Abdominal pannus E65
[2022-05-20 16:29] LABS: ABG PH Result 7.34 (7.35-7.45)
[2022-05-20 16:30] LABS: ABG PCO2 84.1 mmHg (35-45); Arterial Blood Gas Hematocrit 35.5 % (42-52); Base Excess ABG 16.4 mmol/L (-2.0-2.0); Blood Gas Allen Test Pos; Blood Gas Operator Identificat MONRO; Blood Gas Sample Type Arterial; HCO3 ABG 45.7 mmol/L (22-26); PO2 ABG 99.4 mmHg (80.0-100.0)
[2022-05-20 17:01] LABS: Add Urine Microscopic? NO; Charge for UA Resulting for Rev
[2022-05-20 17:16] LABS: Urine Appearance Clear (CLEAR); Urine Color Yellow (Yellow); pH Urine 5 (5-7)
[2022-05-20 17:17] LABS: Bilirubin Urine Neg (Negative); Blood Urine Neg (Negative); Glucose Urine UA Norm (Normal); Ketones Urine Negative (Negative); Leukocyte Esterase Urine Negative (Negative); Nitrate Urine Negative (Negative); Protein Urine Neg (Negative); Urobilinogen Urine Norm (Negative)
[2022-05-20] MEDS: piperacillin-tazobactam 3.375 GM in sodium chloride 0.9% (plus) 50 ML IV (17:25)
[2022-05-20] MEDS: nystatin powder 15 gm Btl 1 APPLIC TOPICAL (17:26)
[2022-05-20] MEDS: FUROsemide 10 mg/mL SDV 10mL 80 MG IVP (17:43)
[2022-05-20 18:51] LABS: Folate Level > 20.0 ng/mL (4.5-32.2)
[2022-05-20] MEDS: silver sulfadiazine cream 1% 50 gm 1 APPLIC TOPICAL (19:09)
[2022-05-20] MEDS: budesonide 0.5 mg/2 mL Neb INHALATION (21:01)
[2022-05-21] VITALS (111 sets, daily range): BP systolic 108–173; BP diastolic 48–147; PULSE 59–107; RESP 14–44; TEMP 36.6–38.1; O2SAT 92–100
[2022-05-21] MEDS: piperacillin-tazobactam 3.375 GM in sodium chloride 0.9% (plus) 50 ML IV ×3 (00:35→16:07)
[2022-05-21] MEDS: ipratropium-albuterol 3 mL Neb INHALATION ×4 (01:20→20:05)
[2022-05-21] MEDS: HYDROcodone-acetaminophen 10-325 mg Tablet 1 TAB PO ×3 (03:53→18:35)
[2022-05-21 05:13] LABS: Basophils % 0.5 %; Eosinophils # 0.2 10^3/uL (0.0-0.8); Eosinophils % 3.6 %; Hemoglobin 11.1 g/dL (11.7-16.6); Lymphocytes # 1.4 10^3/uL (0.8-4.8); Lymphocytes % 24.7 %; Mean Corpuscular Hemoglobin 29.5 pg (28.0-34.0); Mean Corpuscular Volume 98.4 fl (80-94); Mean Platelet Volume 9.1 fL (7.4-10.4); Monocytes # 0.6 10^3/uL (0.2-0.9); Neutrophils # 3.36 10^3/uL (1.8-7.7); Nucleated Red Blood Cells % 0 %; Platelet Count 282 10^3/cmm (130-400); Red Blood Count 3.76 10^6/uL (4.1-5.3); Red Cell Distribution Width 15.9 % (12.1-15.1); White Blood Count 5.5 10^3/uL (4.0-10.0)
[2022-05-21] MEDS: silver sulfadiazine cream 1% 50 gm 1 APPLIC TOPICAL ×2 (05:18→17:57)
[2022-05-21 05:32] LABS: Estmated Average Glucose 117; Hemoglobin A1C 5.7 % (4.0-6.0)
[2022-05-21 05:37] LABS: Alanine Aminotransferase 19 U/L (0-41); Alkaline Phosphatase 77 U/L (40-130); Anion Gap 9.4 (5-19); Aspartate Amino Transferase 33 U/L (0-40); Blood Urea Nitrogen 18 mg/dL (8-23); Calcium 9.3 mg/dL (8.5-10.5); Chloride 91 mmol/L (98-107); Chol HDL Ratio 3.04 mg/dL (1.0-5.00); Cholesterol 146 mg/dL (0-200); Globulin 3.6 g/dL (1.3-4.6); Glomerular Filtration Rate 113.2 mL/min (90-130); Glucose 144 mg/dL (65-115); HDL Cholesterol 48 mg/dL (60-100); LDL Cholesterol Calculated 81 mg/dL (50-129); Magnesium 1.9 mg/dL (1.7-2.3); Osmolality Calculated 294 mOsm/kg (285-295); Phosphorus 1.5 mg/dL (2.5-4.5); Potassium 3.4 mmol/L (3.5-5.1); Sodium 140 mmol/L (136-145); Total Bilirubin 0.8 mg/dL (0.15-1.2); Total Protein 6.6 g/dL (6.6-8.7); Triglycerides 86 mg/dL (0-150); VLDL Cholestrol Calculation 17 mg/dL (0-30)
[2022-05-21 05:54] LABS: Carbon Dioxide 43 mmol/L (22-29)
[2022-05-21] MEDS: tamsulosin 0.4 mg Capsule PO (06:11)
[2022-05-21] MEDS: pantoprazole DR 40 mg Tablet PO (06:11)
[2022-05-21] MEDS: budesonide 0.5 mg/2 mL Neb INHALATION ×2 (07:29→20:05)
[2022-05-21] MEDS: FUROsemide 10 mg/mL SDV 10mL 80 MG IVP ×2 (09:30→18:04)
[2022-05-21 09:55] LABS: ABG PCO2 59.4 mmHg (35-45); Alveolar-Arterial Oxygen Gradi 18.7 mmHg (5-10); Arterial Blood Gas Hematocrit 33.6 % (42-52); Base Excess ABG 20.2 mmol/L (-2.0-2.0); Blood Gas Allen Test Pos; Blood Gas Sample Site Radial, right; Blood Gas Sample Type Arterial; Carboxyhemoglobin 1.7 %THgb (0.4-20.1); HCO3 ABG 46.3 mmol/L (22-26); HGB O2 Sat 94.7 % (95-100); Ionized Calcium Level - ABG 1.2 mmol/L (1.1-1.4); Methemoglobin 0.8 % (0.4-1.5); Oxygen Device BIPAP; Oxygen Saturation ABG 97.2; PO2 ABG 74.1 mmHg (80.0-100.0); Potassium Level - ABG 3.2 mmol/L (3.5-5.0)
[2022-05-21] MEDS: sotalol 80 mg Tablet 120 MG PO (10:30)
[2022-05-21] MEDS: aspirin 81 mg Chew Tablet PO (10:30)
[2022-05-21] MEDS: ferrous gluconate 324 mg Tablet PO ×2 (10:30→17:07)
[2022-05-21] MEDS: fluconazole 100 mg Tablet PO (10:30)
[2022-05-21] MEDS: docusate sodium 100 mg Capsule PO ×2 (10:30→17:07)
[2022-05-21] MEDS: PARoxetine 20 mg Tablet 30 MG PO (10:30)
[2022-05-21] MEDS: spironolactone 25 mg Tablet PO (10:31)
[2022-05-21] MEDS: metOLazone 5 MG Tablet PO (10:31)
[2022-05-21] MEDS: nystatin powder 15 gm Btl 1 APPLIC TOPICAL ×2 (10:31→17:14)
--- NOTE | 2022-05-21 11:50 | PM.PN ---
Subjective Subjective: No acute events overnight. Patient remained on the BiPAP overnight. Today morning he is alert awake and alert. Repeat ABG appreciated. Patient seen on 3 L nasal cannula. Saturating well. He is awake and alert and able to have complete conversation. He states he has been having difficulty in breathing which has been getting worse for last 1 week. He states he felt as if he is drowning in water. He states he has been compliant with the oral intake of water and salt. Thinks his home ventilator is not working well as after an hour he starts choking on it. Vitals/I&O/Wt Last Vital Signs Temp 98.1 F 05/21/22 08:00 Pulse 77 05/21/22 08:00 Resp 16 05/21/22 08:00 BP 108/48 05/21/22 08:00 Pulse Ox 94 05/21/22 08:00 O2 Del Method 05/21/22 08:00 O2 Flow Rate 10 05/21/22 02:45 FiO2 30 05/21/22 08:00 05/20/22 05/21/22 05/21/22 22:59 06:59 14:59 Intake Total 50 / 50 50 / 100 Output Total 2500 / 2500 550 / 3050 450 / 450 Balance -2450 / -2450 -500 / -2950 -450 / -450 Weight last 48 hrs Weight 225.889 kg Physical Exam Narrative: EXAM NARRATIVE: General: No acute distress, AO x3, on BiPAP ventilation HEENT: PERRLA, pupils bilaterally equal and reactive Chest:Bronchial breath sounds b/l ,decreased air entry, equal good air entry bilaterally, no more fine basal crackles CVS: S1-S2 regular, no murmurs, no tachycardia, no gallops, no rubs Abdomen: Soft, nontender, no organomegaly, bowel sounds present, morbidly obese Neuro: No focal deficits, no facial deformity, AO x3, power 5/5 in all limbs Extremities: Open wound placement on the right side under the pannus with fresh bleeding Urinary Catheter Management: Willingham: Cath Placed During This Visit: yes Reason for Continuing Indwelling Catheter: Acute Urinary Retention or Obstruction Urinary Catheter Date of Insertion: 05/20/22 Urinary Catheter Time of Insertion: 16:00 Data 05/21/22 04:59 05/21/22 04:59 Micro: Microbiology 05/20/22 15:34 Legionella Urinary Antigen - Final Urine Catheterized 05/20/22 15:34 Bacterial Antigens - Final Urine Kidney A&P Assessment and plan (1) Acute hypercapnic respiratory failure: Continue with BiPAP ventilation nightly. Baseline CO2 seems to be around 70. CT chest results appreciated. Urine Legionella, bacterial antigen negative. MRSA swab, sputum culture awaited. Continue with empiric Zosyn for now. At home patient is on metolazone 5 mg daily, Bumex 2 mg daily. For now continue with metolazone. Continue with IV Lasix 80 mg twice daily. Bicarb still elevated. We will give him a dose of Diamox. Willingham catheter. Strict input output charting. DuoNeb every 6 hour, budesonide twice daily. Oxygen supplementation keeping saturation over 88%. (2) Morbid obesity with BMI of 50.0-59.9, adult: (3) Pickwickian syndrome: (4) Congestive heart failure: (5) Afib: Rate controlled currently. Continue with home dose of sotalol. Continue home dose of warfarin. It seems as per med rec he takes Coumadin 5 mg twice daily. Patient is not sure of the dose of medication. Pharmacy closed today being Sunday. For now start on warfarin 7.5 mg daily. Will dose warfarin as per pharmacy. Check INR daily. (6) Abdominal pannus: With open pressure ulcer wounds on the right side. Dressing with silver sulfadiazine. Concern for fungal infection. Fluconazole 100 mg daily for 7 days. Plan Hypertension: Goal blood pressure less than 140/90 mmHg. Continue with home dose of sotalol. We will add medication as per blood pressure goals. Full code. Protonix for PUD prophylaxis. Warfarin will suffice for DVT prophylaxis. Attestations Medical Necessity Statement*: Requires further hospitalization for management of acute on chronic hypercapnic respiratory failure in setting of pickwickian syndrome, atrial fibrillation congestive heart failure Time Spent in Patient Care: Greater than 35 minutes Coding Level of Care Code Acute Obstetrics/Gynecology Nurse for [facility] Diagnoses Acute hypercapnic respiratory failure J96.02 Morbid obesity with BMI of 50.0-59.9, adult E66.01; Z68.43 Pickwickian syndrome E66.2 Congestive heart failure I50.9 Afib I48.91 Abdominal pannus E65
[2022-05-21 12:16] LABS: INR 1.73 (0.8-1.2)
[2022-05-21] MEDS: acetaZOLAMIDE 250 mg Tablet 500 MG PO (14:21)
[2022-05-21] MEDS: acetaminophen 325 mg Tablet 650 MG PO (20:43)
[2022-05-22] VITALS (59 sets, daily range): BP systolic 102–137; BP diastolic 56–69; PULSE 52–71; RESP 16–33; TEMP 36.6–37.1; O2SAT 86–98
[2022-05-22] MEDS: piperacillin-tazobactam 3.375 GM in sodium chloride 0.9% (plus) 50 ML IV ×2 (00:06→08:41)
[2022-05-22] MEDS: HYDROcodone-acetaminophen 10-325 mg Tablet 1 TAB PO ×2 (00:07→05:37)
[2022-05-22] MEDS: ipratropium-albuterol 3 mL Neb INHALATION ×3 (02:23→14:45)
[2022-05-22] MEDS: silver sulfadiazine cream 1% 50 gm 1 APPLIC TOPICAL (04:41)
[2022-05-22 05:20] LABS: Basophils % 0.5 %; Eosinophils # 0.5 10^3/uL (0.0-0.8); Eosinophils % 7.7 %; Hematocrit 36.2 % (42.0-52.0); Hemoglobin 11.1 g/dL (11.7-16.6); Lymphocytes # 2.5 10^3/uL (0.8-4.8); Lymphocytes % 38.2 %; Mean Corpuscular HGB Conc 30.7 g/dL (30.0-36.0); Mean Corpuscular Hemoglobin 29.4 pg (28.0-34.0); Mean Corpuscular Volume 95.8 fl (80-94); Mean Platelet Volume 9.3 fL (7.4-10.4); Monocytes # 0.7 10^3/uL (0.2-0.9); Monocytes % 10.9 %; Neutrophils # 2.76 10^3/uL (1.8-7.7); Neutrophils % 42.4 %; Nucleated Red Blood Cells % 0 %; Platelet Count 278 10^3/cmm (130-400); Red Blood Count 3.78 10^6/uL (4.1-5.3); Red Cell Distribution Width 15.7 % (12.1-15.1); White Blood Count 6.5 10^3/uL (4.0-10.0)
[2022-05-22 05:37] LABS: INR 1.59 (0.8-1.2)
[2022-05-22] MEDS: tamsulosin 0.4 mg Capsule PO (05:37)
[2022-05-22] MEDS: pantoprazole DR 40 mg Tablet PO (05:37)
[2022-05-22 05:39] LABS: Alanine Aminotransferase 19 U/L (0-41); Albumin Level 3.1 g/dL (3.5-5.2); Alkaline Phosphatase 82 U/L (40-130); Aspartate Amino Transferase 28 U/L (0-40); Blood Urea Nitrogen 22 mg/dL (8-23); Calcium 9.4 mg/dL (8.5-10.5); Carbon Dioxide 39 mmol/L (22-29); Chloride 89 mmol/L (98-107); Globulin 3.9 g/dL (1.3-4.6); Glomerular Filtration Rate 113.2 mL/min (90-130); Glucose 115 mg/dL (65-115); Osmolality Calculated 284 mOsm/kg (285-295); Sodium 135 mmol/L (136-145)
[2022-05-22] MEDS: docusate sodium 100 mg Capsule PO (08:39)
[2022-05-22] MEDS: aspirin 81 mg Chew Tablet PO (08:39)
[2022-05-22] MEDS: fluconazole 100 mg Tablet PO (08:39)
[2022-05-22] MEDS: metOLazone 5 MG Tablet PO (08:39)
[2022-05-22] MEDS: ferrous gluconate 324 mg Tablet PO (08:39)
[2022-05-22] MEDS: spironolactone 25 mg Tablet PO (08:39)
[2022-05-22] MEDS: sotalol 80 mg Tablet 120 MG PO (08:39)
[2022-05-22] MEDS: FUROsemide 10 mg/mL SDV 10mL 80 MG IVP (08:40)
[2022-05-22] MEDS: PARoxetine 20 mg Tablet 30 MG PO (08:40)
[2022-05-22] MEDS: budesonide 0.5 mg/2 mL Neb INHALATION (08:45)
[2022-05-22] MEDS: acetaZOLAMIDE 250 mg Tablet 500 MG PO (08:45)
[2022-05-22] MEDS: nystatin powder 15 gm Btl 1 APPLIC TOPICAL (08:45)
--- NOTE | 2022-05-22 11:51 | P.DS_ITS ---
Discharge Providers Date of Admission: 05/20/22 13:22 Date of Discharge: May 22, 2022 Attending Provider at Admission: Fab Norton MD Attending Provider at Discharge: Lewis Jama Primary Care Provider: Robert Mustafa Diagnoses at Discharge Discharge Diagnosis (1) Acute hypercapnic respiratory failure: Status: Acute (2) Morbid obesity with BMI of 50.0-59.9, adult: Status: Acute (3) Pickwickian syndrome: Status: Acute (4) Congestive heart failure: Status: Acute (5) Afib: Status: Acute (6) Abdominal pannus: Status: Acute Reason for Visit Reason for Visit: HYPOXIA Hospital Course Hospital Course Pleasant 67-year-old gentleman with morbid obesity, chronic respiratory failure and hypercapnia, suspected obesity hypoventilation syndrome, possible DAWN, diastolic heart failure, A. fib, on warfarin, was admitted due to acute resp iratory failure with hypoxia and hypercapnia oxygen saturation, 70s, hypercapnic respiratory acidosis, 87.33, PCO2 88. CT on presentation with moderate sized right-sided pleural effusion. He otherwise remained without signs of sepsis or acute infection. Treated with BiPAP support, found to be in acute diastolic congestive heart failure exacerbation as well, treated with diuretics with IV Lasix, metolazone currently received wound care with silver sulfadiazine, empirically treated with Zosyn, fluconazole due to wounds on the right side pannus. He has diuresed well, is in negative balance of almost 6 L, with decrease in lower extremity swelling, wrinkling, with improving edema of the right side pannus. Instructed to continue fluid restriction at home of 1 L. He states that sometimes he is not sure how much he supposed to drink, was asking history drink about 2 L. He states that he drinks quite a bit of milk. Discussed with him to account for milk consumption in the total limit. Continue diuretics at home. He did well with BiPAP here, although previously was not using his ventilator at home. He states that it was making him hurt while using it and made him turn blue. As he has tolerated BiPAP with AVAPS settings in the hospital she is referred additionally for sleep study so that he may be set up with a similar machine which she states he will use. Continue wound care at home. Short course of Keflex. MRSA PCR was negative. As well as 7-day course of fluconazole. Please reassess wound. Consider referral to wound care. Warfarin chronically 10 mg daily. Please reassess also his INR. Please visit with him regarding weight loss options. Physical Exam Const: COMMON NORMALS: patient oriented x3 and alert GENERAL APPEARANCE: cooperative NUTRITIONAL APPEARANCE: obese morbidly obese LANDON TATION/CONSCIOUSNESS: Yes awake OTHER: He is pleasant, conversant. Reports he is feeling much better, requested he is able to go home. Requests to go home. HENMT: COMMON NORMALS: oropharynx normal Neck/C-Spine: COMMON NORMALS: no JVD Resp: COMMON NORMALS: normal respiratory effort and clear to auscultation bilaterally AUSCULTATION: clear to auscultation bilaterally Cardio: COMMON NORMALS: no JVD, regular rhythm, S1 normal heart sound present, S2 normal heart sound present and No murmurs present (Cardio) RHYTHM: regular rhythm HEART SOUNDS: S1 normal heart sound present and S2 normal heart sound present GI: COMMON NORMALS: Normal to inspection, nondistended, normoactive bowel sounds present, Soft to palpation and non-tender PALPATION: Yes Soft to pa lpation Extremity: COMMON NORMALS: no joint enlargement OTHER: Difficult to assess edema, but appears perhaps minor edema, otherwise skin wrinkling on bilateral lower extremities. No oozing. Neuro: COMMON NORMALS: patient oriented x3 and moves all extremities SENSORIUM/ORIENTATION: Yes alert Skin: OTHER: Wounds on the right side pelvis, appear to be shallow ulcerations about 3 cm in diameter, no purulence, no deep wounds or or undermining. Urinary Catheter Management: Willingham: Cath Placed During This Visit: yes Reason for Continuing Indwelling Catheter: Acute Urinary Retention or Obstruction Urinary Catheter Date of Insertion: 05/20/22 Urinary Catheter Time of Insertion: 16:00 Discharge Data Studies Completed and Pending Completed Studies During Hospitalization Category Date Time Status CT chest wo con [id number] Routine Cat Scan 05/20/22 13:58 Completed XR chest 1V portable [id number] Stat Exams 05/20/22 10:46 Completed Pending at discharge Category Date Time Status Prothrombin Time INR AM LABS Lab 05/23/22 04:00 Ordered Prothrombin Time INR AM LABS Lab 05/24/22 04:00 Ordered Respiratory Panel 2 Routine Lab 05/20/22 13:22 Ordered Sputum Culture and Gram Stain Stat Lab 05/21/22 11:52 Uncollected Radiology Impressions Chest X-Ray 05/20/22 10:46 IMPRESSION: 1. Cardiomegaly with improved pulmonary vascular congestion. 2. Nonspecific right basilar opacities, edema and/or pneumonia. 3. Streaky left basilar opacity favors atelectasis. 4. There is blunting of both costophrenic angles, suggestive of small pleural effusions right greater than left. Chest CT 05/20/22 13:58 IMPRESSION: 1. Moderate right pleural fluid collection minimal left pleural fluid collection. 2. Stable severe calcified coronary artery disease. Laboratory Results WBC 6.5 10^3/uL (4.0-10.0) 05/22/22 04:43 RBC 3.78 10^6/uL (4.1-5.3) L 05/22/22 04:43 Hgb 11.1 g/dL (11.7-16.6) L 05/22/22 04:43 Hct 36.2 % (42.0-52.0) L 05/22/22 04:43 MCV 95.8 fl (80-94) H 05/22/22 04:43 MCH 29.4 pg (28.0-34.0) 05/22/22 04:43 MCHC 30.7 g/dL (30.0-36.0) 05/22/22 04:43 RDW 15.7 % (12.1-15.1) H 05/22/22 04:43 Plt Count 278 10^3/cmm (130-400) 05/22/22 04:43 MPV 9.3 fL (7.4-10.4) 05/22/22 04:43 Neut % (Auto) 42.4 % 05/22/22 04:43 Lymph % (Auto) 38.2 % 05/22/22 04:43 [place] % (Auto) 10.9 % 05/22/22 04:43 Eos % (Auto) 7.7 % 05/22/22 04:43 Baso % (Auto) 0.5 % 05/22/22 04:43 Neut # (Auto) 2.76 10^3/uL (1.8-7.7) 05/22/22 04:43 Lymph # (Auto) 2.5 10^3/uL (0.8-4.8) 05/22/22 04:43 [place] # (Auto) 0.7 10^3/uL (0.2-0.9) 05/22/22 04:43 Eos # (Auto) 0.5 10^3/uL (0.0-0.8) 05/22/22 04:43 Baso # (Auto) 0.0 10^3/uL (0.0-0.1) 05/22/22 04:43 Nucleated RBC % (auto) 0 % 05/22/22 04:43 Nucleated RBCs # 0.0 /100WBC 05/22/22 04:43 PT 19.30 SECONDS (12.1-14.9) H 05/22/22 04:43 INR 1.59 (0.8-1.2) H 05/22/22 04:43 D-Dimer 0.57 ug/mIFEU (0-0.59) 05/20/22 11:40 Specimen Type Arterial 05/21/22 09:35 Sample Site Radial, right 05/21/22 09:35 ABG pH 7.50 (7.35-7.45) H 05/21/22 09:35 ABG pCO2 59.4 mmHg (35-45) H 05/21/22 09:35 ABG pO2 74.1 mmHg (80.0-100.0) L 05/21/22 09:35 ABG HCO3 46.3 mmol/L (22-26) H 05/21/22 09:35 ABG O2 Saturation 97.2 05/21/22 09:35 ABG Base Excess 20.2 mmol/L (-2.0-2.0) H 05/21/22 09:35 Ronald Test Pos 05/21/22 09:35 A-a O2 Gradient 18.7 mmHg (5-10) H 05/21/22 09:35 Hematocrit 33.6 % (42-52) L 05/21/22 09:35 Hgb O2 Saturation 94.7 % (95-100) L 05/21/22 09:35 Carboxyhemoglobin 1.7 %THgb (0.4-20.1) 05/21/22 09:35 Methemoglobin 0.8 % (0.4-1.5) 05/21/22 09:35 Total Hemoglobin 11.0 g/dL (14-18) L 05/21/22 09:35 Sodium 140.0 mmol/L (131-143) 05/21/22 09:35 Potassium 3.2 mmol/L (3.5-5.0) L 05/21/22 09:35 Glucose 113.0 mg/dL (70-115) 05/21/22 09:35 Ionized Calcium 1.2 mmol/L (1.1-1.4) 05/21/22 09:35 O2 Delivery Device Bipap 05/21/22 09:35 O2 Liters/Min 7.0 % 05/20/22 10:58 FiO2 40.0 % 05/21/22 09:35 PEEP 12.0 cmH20 05/21/22 09:35 Neurology Director ID Bj 05/21/22 09:35 Sodium 135 mmol/L (136-145) L 05/22/22 04:43 Potassium 3.0 mmol/L (3.5-5.1) L 05/22/22 04:43 Chloride 89 mmol/L (98-107) L 05/22/22 04:43 Carbon Dioxide 39 mmol/L (22-29) H 05/22/22 04:43 Anion Gap 10.0 (5-19) 05/22/22 04:43 BUN 22 mg/dL (8-23) 05/22/22 04:43 Creatinine 0.7 mg/dL (0.7-1.2) 05/22/22 04:43 GFR Calculation 113.2 mL/min (90-130) 05/22/22 04:43 Glucose 115 mg/dL (65-115) 05/22/22 04:43 Estimat Average Glucose 117 05/21/22 04:59 Hemoglobin A1c 5.7 % (4.0-6.0) 05/21/22 04:59 Calculated Osmolality 284 mOsm/kg (285-295) L 05/22/22 04:43 Calcium 9.4 mg/dL (8.5-10.5) 05/22/22 04:43 Phosphorus 1.5 mg/dL (2.5-4.5) L 05/21/22 04:59 Magnesium 1.9 mg/dL (1.7-2.3) 05/21/22 04:59 Iron 37 ug/dL (59-158) L 05/20/22 11:40 TIBC 403 mcg/dl 05/20/22 11:40 % Saturation 9.1 % (20-50) L 05/20/22 11:40 Unsat Iron Binding 366 ug/dL (112-347) H 05/20/22 11:40 Total Bilirubin 1.0 mg/dL (0.15-1.2) 05/22/22 04:43 AST 28 U/L (0-40) 05/22/22 04:43 ALT 19 U/L (0-41) 05/22/22 04:43 Alkaline Phosphatase 82 U/L (40-130) 05/22/22 04:43 Troponin T Gen 5 ng/L 25 ng/L (0-15) H 05/20/22 11:40 NT-Pro-B Natriuret Pep 601 pg/mL (0-125) H 05/20/22 11:40 Total Protein 7.0 g/dL (6.6-8.7) 05/22/22 04:43 Albumin 3.1 g/dL (3.5-5.2) L 05/22/22 04:43 Globulin 3.9 g/dL (1.3-4.6) 05/22/22 04:43 Triglycerides 86 mg/dL (0-150) 05/21/22 04:59 Cholesterol 146 mg/dL (0-200) 05/21/22 04:59 LDL Cholesterol, Calc 81 mg/dL (50-129) 05/21/22 04:59 Total VLDL Cholesterol 17 mg/dL (0-30) 05/21/22 04:59 HDL Cholesterol 48 mg/dL (60-100) L 05/21/22 04:59 Cholesterol/HDL Ratio 3.04 mg/dL (1.0-5.00) 05/21/22 04:59 Vitamin B12 389 pg/mL (232-1245) 05/20/22 11:40 Folate > 20.0 ng/mL (4.5-32.2) 05/20/22 17:17 Procalcitonin 0.08 ng/mL (0-0.5) 05/20/22 11:40 TSH 0.44 uIU/mL (0.27-4.20) 05/20/22 11:40 Urine Color Yellow (Yellow) 05/20/22 15:34 Urine Appearance Clear (CLEAR) 05/20/22 15:34 Urine pH 5 (5-7) 05/20/22 15:34 Ur Specific [place] 1.020 (1.005-1.030) 05/20/22 15:34 Urine Protein Neg (Negative) 05/20/22 15:34 Urine Glucose (UA) Norm (Normal) 05/20/22 15:34 Urine Ketones Negative (Negative) 05/20/22 15:34 Urine Blood Neg (Negative) 05/20/22 15:34 Urine Nitrate Negative (Negative) 05/20/22 15:34 Urine Bilirubin Neg (Negative) 05/20/22 15:34 Urine Urobilinogen Norm mg/dL (Negative) 05/20/22 15:34 Ur Leukocyte Esterase Negative (Negative) 05/20/22 15:34 Vitals Last Vital Signs Temp 98.0 F 05/22/22 07:30 Pulse 53 L 05/22/22 11:38 Resp 22 H 05/22/22 11:38 BP 115/69 05/22/22 11:38 Pulse Ox 94 05/22/22 11:38 O2 Del Method 05/22/22 08:48 O2 Flow Rate 5 05/22/22 08:48 FiO2 40 05/22/22 00:00 Discharge Plan Discharge Patient Disposition: Home Condition: Stable Prescriptions: New ferrous gluconate 324 mg (37.5 mg iron) Tablet 324 mg PO EVERY OTHER DAY Qty: 90 0RF silver sulfadiazine [SSD] 1 % Cream 1 applic topical Q12H Qty: 85 1RF Rx Instructions: Apply to wounds on the right side abdominal pannus twice daily. cephalexin 250 mg capsule 250 mg PO BID 7 Days Qty: 14 0RF fluconazole 100 mg Tablet 100 mg PO DAILY Qty: 7 0RF Continued omeprazole 40 mg Capsule,Delayed Release(Dr/Ec) 40 mg PO QAM hydrocodone-acetaminophen 10-325 mg tablet 1 tab PO Q6H PRN (Reason: Pain) tamsulosin 0.4 mg Capsule 0.4 mg PO QAM multivitamin Tablet 1 tab PO DAILY acetaminophen 500 mg Tablet 500 - 1,000 mg PO Q4H PRN (Reason: Pain) potassium chloride 10 mEq capsule, extended release 40 meq PO DAILY Qty: 30 0RF bumetanide 2 mg Tablet 2 mg PO DAILY metolazone 5 mg Tablet 5 mg PO DAILY sotalol 120 mg Tablet 120 mg PO DAILY spironolactone 25 mg Tablet 25 mg PO DAILY Lasix 80 mg Tablet 80 mg PO DAILY paroxetine HCl 30 mg Tablet 30 mg PO DAILY aspirin 81 mg Tablet,Chewable 81 mg PO DAILY folic acid 1 mg Tablet 1 mg PO DAILY Changed warfarin 5 mg tablet 10 mg PO BID Qty: 90 0RF Discharge Orders: Discharge Order (Routine); Ordered 05/22/22 Ordered By: Lewis Jama Other Ambulatory Orders: Sleep Study/Titration (Routine) Timeframe: 1 Week Facility: [facility] - Location: [facility] Ordered By: Lewis Jama Referrals: Robert Mustafa [Primary Care Provider] - 4-7 days Patient Instructions: Opioid Safety Activity Restrictions/Additional Instructions: Please limit total intake of liquids to less than 1 L a day. Continue diuretics. Please follow-up with your primary doctor for reassessment of volume status, as well as reassessment of right side pleural effusion. Please have your primary doctor follow-up chemistry labs, including potassium. Continue potassium supplementation due to potassium on the low side. Measure oxygen saturation at home, target saturation 88-92%. Avoid oxygen saturation that is too high. Please follow-up with sleep study for arrangements for BiPAP to help prevent of developing croup left side, development of negative pressure pulmonary edema. Please continue wound care on right side pannus, clean gently with soap and water twice daily, dry, apply silver sulfadiazine. Keep dry. Consider follow- up with wound care clinic. Monitor blood pressures twice daily, keep log to bring to your appointment. Resume warfarin. For now continue 10 mg daily. Please recommend Reassess INR at next visit. Discuss with your primary doctor regarding weight loss options. Discharge Attestations Time Spent in Discharge Care*: greater than 30 min Status at Discharge: Cognitive status at discharge: cognitively intact , Behavioral status at discharge: cooperative , Quality Metrics Clinical Quality Measures [ No reported AMI, CVA or VTE this stay] Coding Level of Care Code Acute Chg FW DC note Diagnoses Acute hypercapnic respiratory failure J96.02 Morbid obesity with BMI of 50.0-59.9, adult E66.01; Z68.43 Pickwickian syndrome E66.2 Congestive heart failure I50.9 Afib I48.91 Abdominal pannus E65
[2022-05-22] MEDS: potassium chloride ER 20 mEq Tablet 40 MEQ PO (12:13)
[2022-05-22] MEDS: warfarin 10 mg Tablet PO (14:24)
--- NOTE | 2022-05-22 15:32 | PC.NURSE ---
1530- patient discharged to home via personal vehicle with brother as primary deliver driver. Extensive education given to patient with brother at bedside. Medications, follow up care, O2 range 88-92%, DASH diet plan, and restrictions discussed at length. Patient and family had no questions.
== END 2022-05-22 15:35 | disposition home health service (06) | DRG 189 ==
LOC: ER 12:07 → CSU 13:38
PROVIDERS: Admitting Provider Student in an Organized Health Care Education/Training Program; Emergency Provider Student in an Organized Health Care Education/Training Program; PCP Family Medicine; Visit Provider Internal Medicine
DX: J96.22 Acute and chronic respiratory failure with hypercapnia (principal); L89.223 Pressure ulcer of left hip, stage 3; I50.33 Acute on chronic diastolic (congestive) heart failure; E66.2 Morbid (severe) obesity with alveolar hypoventilation; Z68.43 Body mass index [BMI] 50.0-59.9, adult; J96.21 Acute and chronic respiratory failure with hypoxia; I11.0 Hypertensive heart disease with heart failure; I48.91 Unspecified atrial fibrillation; J44.9 Chronic obstructive pulmonary disease, unspecified; E11.9 Type 2 diabetes mellitus without complications; K21.9 Gastro-esophageal reflux disease without esophagitis; Z99.81 Dependence on supplemental oxygen; Z87.01 Personal history of pneumonia (recurrent); Z87.891 Personal history of nicotine dependence; L89.899 Pressure ulcer of other site, unspecified stage; E65 Localized adiposity; Z79.891 Long term (current) use of opiate analgesic
CPT/HCPCS: 36415; 36600; 51702; 71045; 71250; 80051; 80053; 80061; 81003; 82330; 82607; 82746; 82803; 82805; 83036; 83540; 83550; 83735; 83880; 84100; 84145; 84443; 84484; 85025; 85378; 85610; 86403; 87449; 87641; 93005; 94640; 94660; 94664; 94760; 96365; 96375; 99285; J1940; J2543; J3490; J7626

== ENCOUNTER 2022-06-02 14:30 | Outpatient (CLI) | payer MEDICARE, SELFPAY ==
[2022-06-02 15:03] LABS: Blood Urea Nitrogen 20 mg/dL (8-23); Calcium 9.6 mg/dL (8.5-10.5); Carbon Dioxide 36 mmol/L (22-29); Chloride 88 mmol/L (98-107); Glomerular Filtration Rate 135.2 mL/min (90-130); Glucose 130 mg/dL (65-115); Osmolality Calculated 284 mOsm/kg (285-295); Sodium 135 mmol/L (136-145)
== END 2022-06-02 14:31 | disposition home or self-care (01) ==
PROVIDERS: PCP Family Medicine; Visit Provider Family Medicine
DX: I48.0 Paroxysmal atrial fibrillation (principal)
CPT/HCPCS: 80048; 85610

== ENCOUNTER 2022-06-19 15:01 | Outpatient (CLI) | payer MEDICARE, SELFPAY ==
[2022-06-19 15:28] LABS: INR 2.56 (0.8-1.2)
== END 2022-06-19 15:02 | disposition home or self-care (01) ==
LOC: LAB 15:01
PROVIDERS: PCP Family Medicine; Visit Provider Family Medicine
DX: Z79.01 Long term (current) use of anticoagulants (principal)
CPT/HCPCS: 85610

== ENCOUNTER 2022-06-28 15:34 | Outpatient (CLI) | payer MEDICARE, SELFPAY ==
[2022-06-28 16:17] LABS: Chloride 94 mmol/L (98-107); Glucose 79 mg/dL (65-115); Potassium 4.5 mmol/L (3.5-5.1); Sodium 140 mmol/L (136-145)
[2022-06-28 18:06] LABS: Anion Gap 11.5 (5-19); Blood Urea Nitrogen 18 mg/dL (8-23); Calcium 10.5 mg/dL (8.5-10.5); Carbon Dioxide 39 mmol/L (22-29); Glomerular Filtration Rate 166.9 mL/min (90-130); Osmolality Calculated 291 mOsm/kg (285-295)
== END 2022-06-28 15:35 | disposition home or self-care (01) ==
PROVIDERS: PCP Family Medicine; Visit Provider Family Medicine
DX: J96.12 Chronic respiratory failure with hypercapnia (principal)
CPT/HCPCS: 80048

== ENCOUNTER 2022-07-12 14:08 | Outpatient (CLI) | payer MEDICARE, SELFPAY ==
[2022-07-12 15:02] LABS: Anion Gap 8.3 (5-19); Blood Urea Nitrogen 13 mg/dL (8-23); Carbon Dioxide 36 mmol/L (22-29); Chloride 97 mmol/L (98-107); Glomerular Filtration Rate 166.9 mL/min (90-130); Glucose 151 mg/dL (65-115); Osmolality Calculated 287 mOsm/kg (285-295); Potassium 4.3 mmol/L (3.5-5.1); Sodium 137 mmol/L (136-145)
== END 2022-07-12 14:09 | disposition home or self-care (01) ==
LOC: LAB 14:09
PROVIDERS: PCP Family Medicine; Visit Provider Family Medicine
DX: J96.12 Chronic respiratory failure with hypercapnia (principal)
CPT/HCPCS: 80048

== ENCOUNTER 2022-07-17 14:30 | Outpatient (CLI) | payer MEDICARE, SELFPAY | END 2022-07-17 14:31 | disposition home or self-care (01) | LOC: SLEEP 07-19 11:54 | PROVIDERS: PCP Family Medicine; Visit Provider Family Medicine | DX: G47.33 Obstructive sleep apnea (adult) (pediatric) (principal) | CPT/HCPCS: G0399 ==

== ENCOUNTER 2022-07-19 16:04 | Outpatient (CLI) | payer MEDICARE, SELFPAY ==
[2022-07-19 16:48] LABS: INR 1.07 (0.8-1.2)
== END 2022-07-19 16:05 | disposition home or self-care (01) ==
LOC: LAB 16:05
PROVIDERS: PCP Family Medicine; Visit Provider Family Medicine
DX: I48.91 Unspecified atrial fibrillation (principal); Z79.01 Long term (current) use of anticoagulants
CPT/HCPCS: 85610

== ENCOUNTER 2022-07-28 14:59 | Outpatient (CLI) | payer MEDICARE, SELFPAY ==
[2022-07-28 15:22] LABS: INR 1.71 (0.8-1.2)
== END 2022-07-28 15:00 | disposition home or self-care (01) ==
PROVIDERS: PCP Family Medicine; Visit Provider Family Medicine
DX: I48.0 Paroxysmal atrial fibrillation (principal); Z79.01 Long term (current) use of anticoagulants
CPT/HCPCS: 85610

== ENCOUNTER 2022-08-17 16:00 | Outpatient (CLI) | payer MEDICARE, SELFPAY ==
[2022-08-17 16:34] LABS: Anion Gap 12.2 (5-19); Blood Urea Nitrogen 14 mg/dL (8-23); Calcium 9.5 mg/dL (8.5-10.5); Chloride 86 mmol/L (98-107); Glomerular Filtration Rate 113.2 mL/min (90-130); Glucose 102 mg/dL (65-115); Osmolality Calculated 285 mOsm/kg (285-295); Potassium 3.2 mmol/L (3.5-5.1); Sodium 137 mmol/L (136-145)
[2022-08-17 18:23] LABS: Carbon Dioxide 42 mmol/L (22-29)
== END 2022-08-17 16:01 | disposition home or self-care (01) ==
LOC: LAB 16:01
PROVIDERS: PCP Family Medicine; Visit Provider Family Medicine
DX: I50.32 Chronic diastolic (congestive) heart failure (principal)
CPT/HCPCS: 80048

== ENCOUNTER 2022-08-24 15:40 | Outpatient (CLI) | payer MEDICARE, SELFPAY ==
[2022-08-24 16:08] LABS: Anion Gap 10.6 (5-19); Blood Urea Nitrogen 13 mg/dL (8-23); Calcium 9.4 mg/dL (8.5-10.5); Carbon Dioxide 37 mmol/L (22-29); Chloride 96 mmol/L (98-107); Glomerular Filtration Rate 135.2 mL/min (90-130); Glucose 80 mg/dL (65-115); Osmolality Calculated 289 mOsm/kg (285-295); Potassium 3.6 mmol/L (3.5-5.1); Sodium 140 mmol/L (136-145)
== END 2022-08-24 15:41 | disposition home or self-care (01) ==
PROVIDERS: PCP Family Medicine; Visit Provider Family Medicine
DX: I50.32 Chronic diastolic (congestive) heart failure (principal)
CPT/HCPCS: 80048

== ENCOUNTER 2022-11-03 14:25 | Outpatient (CLI) | payer MEDICARE, SELFPAY ==
[2022-11-03 14:57] LABS: INR 4.82 (0.8-1.2)
== END 2022-11-03 14:26 | disposition home or self-care (01) ==
PROVIDERS: PCP Family Medicine; Visit Provider Family Medicine
DX: I48.0 Paroxysmal atrial fibrillation (principal)
CPT/HCPCS: 85610

== ENCOUNTER 2022-11-14 14:56 | Outpatient (CLI) | payer MEDICARE, SELFPAY ==
[2022-11-14 16:13] LABS: Anion Gap 10.5 (5-19); Blood Urea Nitrogen 12 mg/dL (8-23); Calcium 9.3 mg/dL (8.5-10.5); Chloride 88 mmol/L (98-107); Glomerular Filtration Rate 135.2 mL/min (90-130); Glucose 134 mg/dL (65-115); Osmolality Calculated 284 mOsm/kg (285-295); Potassium 3.5 mmol/L (3.5-5.1); Sodium 136 mmol/L (136-145)
[2022-11-14 17:10] LABS: Carbon Dioxide 41 mmol/L (22-29)
== END 2022-11-14 14:57 | disposition home or self-care (01) ==
LOC: LAB 14:57
PROVIDERS: PCP Family Medicine; Visit Provider Family Medicine
DX: I50.32 Chronic diastolic (congestive) heart failure (principal)
CPT/HCPCS: 80048

== ENCOUNTER 2022-12-05 15:29 | Outpatient (CLI) | payer MEDICARE, SELFPAY ==
[2022-12-05 16:27] LABS: Alanine Aminotransferase 16 U/L (0-41); Albumin Level 3.4 g/dL (3.5-5.2); Alkaline Phosphatase 62 U/L (40-130); Anion Gap 11.4 (5-19); Aspartate Amino Transferase 29 U/L (0-40); Blood Urea Nitrogen 11 mg/dL (8-23); Calcium 9.3 mg/dL (8.5-10.5); Carbon Dioxide 40 mmol/L (22-29); Chloride 91 mmol/L (98-107); Globulin 2.9 g/dL (1.3-4.6); Glomerular Filtration Rate 166.9 mL/min (90-130); Glucose 99 mg/dL (65-115); Osmolality Calculated 287 mOsm/kg (285-295); Potassium 3.4 mmol/L (3.5-5.1); Sodium 139 mmol/L (136-145); Total Bilirubin 0.4 mg/dL (0.15-1.2); Total Protein 6.3 g/dL (6.6-8.7)
[2022-12-05 17:11] LABS: INR 5.05 (0.8-1.2)
== END 2022-12-05 15:30 | disposition home or self-care (01) ==
LOC: LAB 15:31
PROVIDERS: PCP Family Medicine; Visit Provider Family Medicine
DX: Z79.01 Long term (current) use of anticoagulants (principal)
CPT/HCPCS: 80053; 85610

== ENCOUNTER 2022-12-09 13:07 | Outpatient (CLI) | payer MEDICARE, SELFPAY ==
[2022-12-09 13:44] LABS: INR 2.47 (0.8-1.2)
== END 2022-12-09 13:08 | disposition home or self-care (01) ==
PROVIDERS: PCP Family Medicine; Visit Provider Family Medicine
DX: D64.9 Anemia, unspecified (principal); I48.0 Paroxysmal atrial fibrillation
CPT/HCPCS: 85610

== ENCOUNTER 2022-12-21 15:09 | Outpatient (CLI) | payer MEDICARE, SELFPAY ==
[2022-12-21 16:26] LABS: INR 3.75 (0.8-1.2)
== END 2022-12-21 15:10 | disposition home or self-care (01) ==
PROVIDERS: PCP Family Medicine; Visit Provider Family Medicine
DX: Z79.01 Long term (current) use of anticoagulants (principal)
CPT/HCPCS: 85610

== ENCOUNTER 2022-12-28 15:10 | Outpatient (CLI) | payer MEDICARE, SELFPAY ==
[2022-12-28 15:42] LABS: INR 2.78 (0.8-1.2)
== END 2022-12-28 15:11 | disposition home or self-care (01) ==
PROVIDERS: PCP Family Medicine; Visit Provider Family Medicine
DX: Z79.01 Long term (current) use of anticoagulants (principal); R79.1 Abnormal coagulation profile
CPT/HCPCS: 85610

== ENCOUNTER 2023-01-11 15:08 | Outpatient (CLI) | payer MEDICARE, SELFPAY ==
[2023-01-11 15:55] LABS: INR 1.46 (0.8-1.2)
== END 2023-01-11 15:09 | disposition home or self-care (01) ==
LOC: LAB 15:09
PROVIDERS: PCP Family Medicine; Visit Provider Family Medicine
DX: Z79.01 Long term (current) use of anticoagulants (principal)
CPT/HCPCS: 85610

== ENCOUNTER 2023-12-03 16:29 | Outpatient (CLI) | payer MEDICARE, SELFPAY ==
[2023-12-04 07:50] LABS: Anion Gap 14.2 (5-19); Blood Urea Nitrogen 16 mg/dL (8-23); Calcium 9.9 mg/dL (8.5-10.5); Chloride 84 mmol/L (98-107); Glomerular Filtration Rate 96.7 mL/min (90-130); Glucose 150 mg/dL (65-115); Osmolality Calculated 288 mOsm/kg (285-295); Potassium 3.2 mmol/L (3.5-5.1); Sodium 137 mmol/L (136-145)
[2023-12-04 08:16] LABS: Carbon Dioxide 42 mmol/L (22-29)
== END 2023-12-03 16:30 | disposition home or self-care (01) ==
LOC: LAB 16:33
PROVIDERS: PCP Family Medicine; Visit Provider Family Medicine
DX: Z01.89 Encounter for other specified special examinations (principal)
CPT/HCPCS: 80048

== ENCOUNTER 2024-04-18 14:45 | Outpatient (CLI) | payer MEDICARE, SELFPAY ==
[2024-04-18 15:07] LABS: Basophils % 0.7 %; Eosinophils # 0.4 10^3/uL (0.0-0.8); Eosinophils % 8.6 %; Lymphocytes # 1.4 10^3/uL (0.8-4.8); Mean Corpuscular HGB Conc 32.1 g/dL (30-55); Mean Corpuscular Hemoglobin 32.6 pg (27-33); Mean Corpuscular Volume 101.6 fl (82-101); Mean Platelet Volume 9.9 fL (7.4-10.4); Monocytes # 0.5 10^3/uL (0.2-0.9); Monocytes % 10.4 %; Neutrophils # 2.22 10^3/uL (1.8-7.7); Neutrophils % 49.1 %; Nucleated Red Blood Cells % 0 %; Platelet Count 266 10^3/cmm (157-399); Red Blood Count 3.74 10^6/uL (3.85-5.65); Red Cell Distribution Width 14.3 % (12.1-15.1); White Blood Count 4.52 10^3/uL (3.29-11.43)
[2024-04-18 15:25] LABS: Estmated Average Glucose 117; Hemoglobin A1C 5.7 % (4.0-6.0)
[2024-04-18 15:28] LABS: Creatinine Urine, Random 21 mg/dL (39-259); Microalbumin Random Urine 1 ug/dL (0-20)
[2024-04-18 15:32] LABS: Microalbum Creatinine Ratio Ur 48 mg/dL (0-20)
[2024-04-18 15:34] LABS: Alanine Aminotransferase 15 U/L (0-41); Albumin Level 3.3 g/dL (3.5-5.2); Alkaline Phosphatase 83 U/L (40-130); Anion Gap 12.5 (5-19); Aspartate Amino Transferase 23 U/L (0-40); Blood Urea Nitrogen 12 mg/dL (8-23); Calcium 8.8 mg/dL (8.5-10.5); Carbon Dioxide 38 mmol/L (22-29); Chloride 90 mmol/L (98-107); Globulin 3.2 g/dL (1.3-4.6); Glomerular Filtration Rate 112.8 mL/min (90-130); Glucose 151 mg/dL (65-115); Osmolality Calculated 287 mOsm/kg (285-295); Potassium 3.5 mmol/L (3.5-5.1); Sodium 137 mmol/L (136-145); Total Bilirubin 0.5 mg/dL (0.15-1.2); Total Protein 6.5 g/dL (6.6-8.7)
== END 2024-04-18 14:46 | disposition home or self-care (01) ==
PROVIDERS: PCP Family Medicine; Visit Provider Family Medicine
DX: E11.622 Type 2 diabetes mellitus with other skin ulcer (principal); I50.32 Chronic diastolic (congestive) heart failure; I11.0 Hypertensive heart disease with heart failure
CPT/HCPCS: 80053; 82044; 83036; 85025

== ENCOUNTER 2024-12-10 13:04 | Emergency (ER) | payer MEDICARE, SELFPAY ==
[2024-12-10 13:13] VITALS: BP 93/66; PULSE 81; RESP 16; TEMP 36.6; O2SAT 94
[2024-12-10 13:53] LABS: Basophils # 0.1 10^3/uL (0.0-0.1); Eosinophils # 0.2 10^3/uL (0.0-0.8); Eosinophils % 3.7 %; Hematocrit 32.4 % (37-53); Lymphocytes # 1.6 10^3/uL (0.8-4.8); Lymphocytes % 30.7 %; Mean Corpuscular HGB Conc 30.2 g/dL (30-55); Mean Corpuscular Hemoglobin 29.7 pg (27-33); Mean Corpuscular Volume 98.2 fl (82-101); Mean Platelet Volume 8.6 fL (7.4-10.4); Monocytes # 0.5 10^3/uL (0.2-0.9); Monocytes % 9.6 %; Neutrophils # 2.78 10^3/uL (1.8-7.7); Neutrophils % 54.2 %; Nucleated Red Blood Cells % 0 %; Platelet Count 356 10^3/cmm (157-399); Red Cell Distribution Width 14.7 % (12.1-15.1); White Blood Count 5.12 10^3/uL (3.29-11.43)
[2024-12-10 13:58] LABS: Bilirubin Urine Negative (Negative); Blood Urine Negative (Negative); Glucose Urine UA Negative (Normal); Ketones Urine Negative (Negative); Leukocyte Esterase Urine Trace (Negative); Nitrate Urine Negative (Negative); Protein Urine Negative (Negative); Specific Gravity, Urine 1.013 (1.005-1.030); Urine Appearance Clear (CLEAR); Urine Color Yellow (Yellow); pH Urine 8.5 (5-7)
[2024-12-10 14:03] LABS: Add Urine Microscopic? YES; Bacteria Urine None Seen /hpf; Hyaline Casts Urine 6.17 /lpf; RBC Urine 0-2 /hpf (0-2); Squamous Epithelial Cell Urine 0-5 /hpf (0-5); WBC Urine 0-5 /hpf (0-5)
[2024-12-10 14:05] LABS: Amphetamines Screen Urine Negative (Negative); Barbiturates Screen Urine Negative (Negative); Benzodiazepines Screen Urine Negative (Negative); Cocaine Screen Urine Negative (Negative); Opiate Screen Urine Positive (Negative); PCP Screen Urine Negative (Negative); THC Screen Urine Negative (Negative)
[2024-12-10 14:05] LABS: Acetaminophen 5.5 ug/mL (10-30); Alanine Aminotransferase 13 U/L (0-41); Albumin Level 2.1 g/dL (3.5-5.2); Alkaline Phosphatase 131 U/L (40-130); Anion Gap 10.4 (5-19); Aspartate Amino Transferase 25 U/L (0-40); Blood Urea Nitrogen 11 mg/dL (8-23); Calcium 8.6 mg/dL (8.5-10.5); Carbon Dioxide 29 mmol/L (22-29); Chloride 100 mmol/L (98-107); Creatinine Clr Calc Pharmacy 129.0093; Globulin 3.9 g/dL (1.3-4.6); Glomerular Filtration Rate 96.4 mL/min (90-130); Glucose 89 mg/dL (65-115); Osmolality Calculated 279 mOsm/kg (285-295); Potassium 4.4 mmol/L (3.5-5.1); Sodium 135 mmol/L (136-145); Total Bilirubin 0.5 mg/dL (0.15-1.2)
[2024-12-10 14:07] LABS: Alcohol Level < 10 mg/dL (0-10); Salicylate < 0.3 mg/dL (3-10)
--- NOTE | 2024-12-10 14:13 | W.ED.GENADLT ---
HPI - General Adult General: Chief complaint: General Medical Stated complaint: AMS WITH DEMENTIA Time Seen by Provider: 12/10/24 13:07 History of Present Illness: 69-year-old male sent in from the residential care center. Patient was sent in with concerns of maybe being angry and some altered mental status. He does have some baseline underlying dementia. Patient is alert and orientated upon arrival to the ER. He does seem to have some mild confusion consistent with his underlying dementia. Patient reports that he has been angry and anxious because he has been at the residential for a couple weeks and has not had any physical therapy or help with that he was told by a nurse that he may be there forever. Patient also is having stress because he reports that his brother is not paying his bills while he is in the residential and managing his money. He also was just recently stopped from a fentanyl patch, hydrocodone and Ativan. Patient denies any suicidal homicidal ideations. Patient was sent out for behavioral health screening. Associated symptoms: Deny dyspnea Related Data Home Medications ?Medication ?Instructions ?Recorded ?Confirmed omeprazole 40 mg capsule,delayed 40 mg PO QAM 10/17/20 05/20/22 release hydrocodone 10 mg-acetaminophen 1 tab PO Q6H PRN Pain 12/31/20 05/20/22 325 mg tablet tamsulosin 0.4 mg capsule 0.4 mg PO QAM 12/31/20 05/20/22 acetaminophen 500 mg tablet 500 - 1,000 mg PO Q4H PRN Pain 06/20/21 05/20/22 multivitamin 1 tab PO DAILY 06/20/21 05/20/22 aspirin 81 mg chewable tablet 81 mg PO DAILY 05/20/22 05/20/22 bumetanide 2 mg tablet 2 mg PO DAILY 05/20/22 05/20/22 folic acid 1 mg tablet 1 mg PO DAILY 05/20/22 05/20/22 furosemide 80 mg tablet (Lasix) 80 mg PO DAILY 05/20/22 05/20/22 metolazone 5 mg tablet 5 mg PO DAILY 05/20/22 05/20/22 paroxetine HCl 30 mg tablet 30 mg PO DAILY 05/20/22 05/20/22 sotalol 120 mg tablet 120 mg PO DAILY 05/20/22 05/20/22 spironolactone 25 mg tablet 25 mg PO DAILY 05/20/22 05/20/22 Previous Rx's ?Medication ?Instructions ?Recorded potassium chloride 10 mEq 40 meq (4 x 10 mEq) PO DAILY #30 08/23/21 capsule,extended release caps ferrous gluconate 324 mg (37.5 mg 324 mg PO EVERY OTHER DAY #90 tabs 05/22/22 iron) tablet fluconazole 100 mg tablet 100 mg PO DAILY #7 tabs 05/22/22 silver sulfadiazine 1 % topical 1 applic topical Q12H #85 grams 05/22/22 cream (SSD) warfarin 5 mg tablet 10 mg (2 x 5 mg) PO BID #90 tabs 05/22/22 Allergies Allergy/AdvReac Type Severity Reaction Status Date / Time tape Allergy Unknown Uncoded 05/04/21 10:28 Review of Systems General: Reports: Other (May be limited due to baseline dementia) Const: Denies: fever(s) or chills Resp: Denies: dyspnea Psych: Reports: anxiety and depression; Denies: suicidal ideation or homicidal ideation [facility] ED PFSH: Medical History (Updated 12/10/24 @ 14:57 by Stephen Choi DO) Pickwickian syndrome Chronic respiratory failure with hypoxia Respiratory failure with hypoxia and hypercapnia Diastolic heart failure Acute exacerbation of chronic obstructive airways disease On home oxygen therapy 2-3 L Cor pulmonale Obesity Hypersomnia Chronic hypercapnic respiratory failure Chronic anticoagulation Atrial fibrillation Diabetes mellitus, type II Recurrent falls Pneumonia Morbid obesity with BMI of 50.0-59.9, adult History of gastric ulcer with perforation Hypertension GERD (gastroesophageal reflux disease) Surgical History History of esophagogastroduodenoscopy History of exploratory laparotomy for perforated gastric ulcer Family History Father Cancer lung Mother Asthma CAD (coronary artery disease) Sister Cerebral aneurysm Social History Smoking and tobacco/nicotine status: former use of tobacco/nicotine Quit status (tobacco/nicotine): has quit using Year quit tobacco: 1978 - 1PPD x 7 Years Second hand smoke exposure: Yes Alcohol intake: current Alcohol intake frequency: few times a week Alcohol type: beer Substance/Drug Use: never Lives independently: Yes Household members: family Marital status: Current occupational status: disabled Previous occupational history: history of working in [employer] Do you think of yourself as: Straight/Heterosexual Current gender identity: Male Physical Exam Const: COMMON NORMALS: patient oriented x3 NUTRITIONAL APPEARANCE: obese morbidly obese Resp: COMMON NORMALS: normal respiratory effort and clear to auscultation bilaterally AUSCULTATION: clear to auscultation bilaterally Cardio: COMMON NORMALS: regular rate and regular rhythm RATE: regular rate RHYTHM: regular rhythm Neuro: COMMON NORMALS: patient oriented x3, moves all extremities and no focal motor deficits Psych: COMMON NORMALS: mental status grossly normal, cooperative, speech normal, denies hallucinations, denies homicidal ideation and denies suicidal ideation ATTITUDE: Yes engaged SPEECH: Yes normal speech Skin: COMMON NORMALS: turgor normal GENERAL SKIN EXAM: turgor normal Course Vital Signs: Vital signs: Vital Signs Temperature 97.8 F 12/10/24 13:13 Pulse Rate 84 12/10/24 16:21 Respiratory Rate 16 12/10/24 13:13 Blood Pressure 104/81 12/10/24 16:21 Pulse Oximetry 98 12/10/24 16:21 Oxygen Delivery Me thod Room Air 12/10/24 15:36 MDM - General Adult Medical Decision Making Patient was medically cleared. Patient is not having signs of significant hallucinations or abnormal findings outside of some mild dementia memory loss. Patient's symptoms are likely being exacerbated due to pain and patient being recently stopped off of some chronic pain medications by residential physician. Patient is not suicidal homicidal. He will be discharged back to the SNF where he can be further evaluated and managed with his medication changes by the managing provider. He is stable and discharged. Lab Data 12/10/24 13:38 12/10/24 13:38 Laboratory Results WBC 5.12 10^3/uL (3.29-11.43) 12/10/24 13:38 RBC 3.30 10^6/uL (3.85-5.65) L 12/10/24 13:38 Hgb 9.80 g/dL (11.27-16.99) L 12/10/24 13:38 Hct 32.4 % (37-53) L 12/10/24 13:38 MCV 98.2 fl (82-101) 12/10/24 13:38 MCH 29.7 pg (27-33) 12/10/24 13:38 MCHC 30.2 g/dL (30-55) 12/10/24 13:38 RDW 14.7 % (12.1-15.1) 12/10/24 13:38 Plt Count 356 10^3/cmm (157-399) 12/10/24 13:38 MPV 8.6 fL (7.4-10.4) 12/10/24 13:38 Neut % (Auto) 54.2 % 12/10/24 13:38 Lymph % (Auto) 30.7 % 12/10/24 13:38 Perkins % (Auto) 9.6 % 12/10/24 13:38 Eos % (Auto) 3.7 % 12/10/24 13:38 Baso % (Auto) 1.0 % 12/10/24 13:38 Neut # (Auto) 2.78 10^3/uL (1.8-7.7) 12/10/24 13:38 Lymph # (Auto) 1.6 10^3/uL (0.8-4.8) 12/10/24 13:38 Perkins # (Auto) 0.5 10^3/uL (0.2-0.9) 12/10/24 13:38 Eos # (Auto) 0.2 10^3/uL (0.0-0.8) 12/10/24 13:38 Baso # (Auto) 0.1 10^3/uL (0.0-0.1) 12/10/24 13:38 Nucleated RBC % (auto) 0 % 12/10/24 13:38 Nucleated RBCs # 0.0 /100WBC 12/10/24 13:38 Sodium 135 mmol/L (136-145) L 12/10/24 13:38 Potassium 4.4 mmol/L (3.5-5.1) 12/10/24 13:38 Chloride 100 mmol/L (98-107) 12/10/24 13:38 Carbon Dioxide 29 mmol/L (22-29) 12/10/24 13:38 Anion Gap 10.4 (5-19) 12/10/24 13:38 BUN 11 mg/dL (8-23) 12/10/24 13:38 Creatinine 0.8 mg/dL (0.7-1.2) 12/10/24 13:38 GFR Calculation 96.4 mL/min (90-130) 12/10/24 13:38 Glucose 89 mg/dL (65-115) 12/10/24 13:38 Calculated Osmolality 279 mOsm/kg (285-295) L 12/10/24 13:38 Calcium 8.6 mg/dL (8.5-10.5) 12/10/24 13:38 Total Bilirubin 0.5 mg/dL (0.15-1.2) 12/10/24 13:38 AST 25 U/L (0-40) 12/10/24 13:38 ALT 13 U/L (0-41) 12/10/24 13:38 Alkaline Phosphatase 131 U/L (40-130) H 12/10/24 13:38 Total Protein 6.0 g/dL (6.6-8.7) L 12/10/24 13:38 Albumin 2.1 g/dL (3.5-5.2) L 12/10/24 13:38 Globulin 3.9 g/dL (1.3-4.6) 12/10/24 13:38 Urine Color Yellow (Yellow) 12/10/24 13:48 Urine Appearance Clear (CLEAR) 12/10/24 13:48 Urine pH 8.5 (5-7) A 12/10/24 13:48 Ur Specific Camas 1.013 (1.005-1.030) 12/10/24 13:48 Urine Protein Negative (Negative) 12/10/24 13:48 Urine Glucose (UA) Negative (Normal) 12/10/24 13:48 Urine Ketones Negative (Negative) 12/10/24 13:48 Urine Blood Negative (Negative) 12/10/24 13:48 Urine Nitrate Negative (Negative) 12/10/24 13:48 Urine Bilirubin Negative (Negative) 12/10/24 13:48 Urine Urobilinogen 1.0 mg/dL (Negative) 12/10/24 13:48 Ur Leukocyte Esterase Trace (Negative) A 12/10/24 13:48 Urine RBC 0-2 /hpf (0-2) 12/10/24 13:48 Urine WBC 0-5 /hpf (0-5) 12/10/24 13:48 Ur Squamous Epith Cells 0-5 /hpf (0-5) 12/10/24 13:48 Amorphous Sediment Not Reportable 12/10/24 13:48 Urine Bacteria None seen /hpf (NONE) 12/10/24 13:48 Hyaline Casts 6.17 /lpf 12/10/24 13:48 Salicylates < 0.3 mg/dL (3-10) L 12/10/24 13:38 Urine Opiates Screen Positive ng/mL (Negative) H 12/10/24 13:48 Acetaminophen 5.5 ug/mL (10-30) L 12/10/24 13:38 Ur Barbiturates Screen Negative ng/mL (Negative) 12/10/24 13:48 Ur Phencyclidine Scrn Negative ng/mL (Negative) 12/10/24 13:48 Ur Amphetamines Screen Negative ng/mL (Negative) 12/10/24 13:48 U Benzodiazepines Scrn Negative ng/mL (Negative) 12/10/24 13:48 Urine Cocaine Screen Negative ng/mL (Negative) 12/10/24 13:48 U Marijuana (THC) Screen Negative ng/mL (Negative) 12/10/24 13:48 Ethyl Alcohol < 10 mg/dL (0-10) 12/10/24 13:38 No radiology studies performed this visit Discharge Plan Discharge Patient Disposition: Home Clinical Impression: Medication withdrawal, Dementia, Chronic back pain Condition: Stable Prescriptions: No Action omeprazole 40 mg Capsule,Delayed Release(Dr/Ec) 40 mg PO QAM hydrocodone-acetaminophen 10-325 mg tablet 1 tab PO Q6H PRN (Reason: Pain) tamsulosin 0.4 mg Capsule 0.4 mg PO QAM multivitamin Tablet 1 tab PO DAILY acetaminophen 500 mg Tablet 500 - 1,000 mg PO Q4H PRN (Reason: Pain) potassium chloride 10 mEq capsule, extended release 40 meq PO DAILY Qty: 30 0RF bumetanide 2 mg Tablet 2 mg PO DAILY metolazone 5 mg Tablet 5 mg PO DAILY sotalol 120 mg Tablet 120 mg PO DAILY spironolactone 25 mg Tablet 25 mg PO DAILY Lasix 80 mg Tablet 80 mg PO DAILY paroxetine HCl 30 mg Tablet 30 mg PO DAILY aspirin 81 mg Tablet,Chewable 81 mg PO DAILY folic acid 1 mg Tablet 1 mg PO DAILY SSD 1 % Cream 1 applic topical Q12H Qty: 85 1RF Rx Instructions: Apply to wounds on the right side abdominal pannus twice daily. fluconazole 100 mg Tablet 100 mg PO DAILY Qty: 7 0RF ferrous gluconate 324 mg (37.5 mg iron) Tablet 324 mg PO EVERY OTHER DAY Qty: 90 0RF warfarin 5 mg tablet 10 mg PO BID Qty: 90 0RF Discharge Orders: Discharge ED (Routine); Ordered 12/10/24 Ordered By: Stephen Choi Referrals: Robert Mustafa [Primary Care Provider, Family Practice] Discharge Diet: Usual diet Discharge Activity: Increase activity as tolerated Patient Instructions: Dementia (ED), Opioid Withdrawal (ED), Chronic Back Pain (DC), Opioid Safety, Pain Management Activity Restrictions/Additional Instructions: Please have patient's provider reevaluate his medication regiment. He is be sure he is being weaned off his medications and not abruptly stopped as this can cause hallucinations and behavioral changes. 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
[2024-12-10 15:36] VITALS: BP 104/81; PULSE 82; O2SAT 96
[2024-12-10 16:21] VITALS: BP 104/81; PULSE 84; O2SAT 98
== END 2024-12-10 16:22 | disposition home or self-care (01) ==
PROVIDERS: Emergency Provider Student in an Organized Health Care Education/Training Program; PCP Family Medicine
DX: F19.239 Other psychoactive substance dependence with withdrawal, unspecified (principal); F03.90 Unspecified dementia, unspecified severity, without behavioral disturbance, psychotic disturbance, mood disturbance, and anxiety; M54.89 Other dorsalgia; Z79.01 Long term (current) use of anticoagulants; Z87.891 Personal history of nicotine dependence; E11.9 Type 2 diabetes mellitus without complications; I10 Essential (primary) hypertension; J44.9 Chronic obstructive pulmonary disease, unspecified
CPT/HCPCS: 36415; 80053; 80306; 80307; 81001; 85025; 99283

== ENCOUNTER 2025-01-01 09:59 | Emergency (ER) | payer MEDICARE, SELFPAY ==
[2025-01-01] VITALS (10 sets, daily range): BP systolic 86–115; BP diastolic 65–87; PULSE 79–87; RESP 14–18; TEMP 36.3; O2SAT 94–99
--- OUTSIDE RECORDS SUMMARY | 2025-01-01 10:09 | XMS_ITS | Encounter Summary ---
Author Organization [facility] Address [address] [place] [address] Care Team Providers Care Electronic Publications Specialist Name Role Phone Robert Mustafa MD Primary Care Provider [phone] [phone] Encounter Details Date Type Department Care Team (Late st Contact Info) Description 04/19/[address] 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 Gender Identity Not on file Sexual Orientation Not on file documented as of this encounter Plan of Treatment Not on file documented as of this encounter Visit Diagnoses Not on filedocumented in this encounter Additional Health Concerns Infection Onset Date Last Indicated Resolved Time R/O COVID-19 06/08/2020 06/10/2020 06/12/2020 4:45 AM DRYING UNIT FELTING MACHINE OPERATOR documented as of this encounter Care Teams Electronic Publications Specialist Relationship Specialty Start Date End Date Robert Mustafa MD [address] [facility] [address] [place] [phone] PCP - General Family Practice 02/25/16 documented as of this encounter
--- OUTSIDE RECORDS SUMMARY | 2025-01-01 10:09 | XMS_ITS | Encounter Summary ---
Author Organization [facility] Address [address] [place] [address] Care Team Providers Care Sales Service Technician Name Role Phone Robert Mustafa MD Primary Care Provider [phone] Encounter Details Date Type Department Care Team (Latest Contact Info) Description 06/17/2003 Outpatient Historical [facility] Medicine [place] [address] [address] Jarvis De Leon DO NO ADDRESS ON FILE BACKACHE NOS (Primary Dx); DISC DISPLACEMENT NOS Social History Tobacco Use Types Packs/Day Years Used Date Smoking Tobacco: Never Assessed Sex and Gender Information Value Date Recorded Sex Assigned at Not on file Legal Sex Male 4:44 AM MANAGER SUPPLY Gender Identity Not on file Sexual Orientation Not on file documented as of this encounter Plan of Treatment Not on file documented as of this encounter Visit Diagnoses Diagnosis Backache, unspecified- Primary Displacement of intervertebral disc, site unspecified, without myelopathy documented in this encounter Additional Health Concerns Infection Onset Date Last Indicated Resolved Time R/O COVID-19 06/08/2020 06/10/2020 06/12/2020 4:45 AM MANAGER SUPPLY documented as of this encounter Care Teams Sales Service Technician Relationship Specialty Start Date End Date Robert Mustafa MD [address] [address] PCP - General Family Practice 02/25/16 documented as of this encounter
--- OUTSIDE RECORDS SUMMARY | 2025-01-01 10:09 | XMS_ITS | Encounter Summary ---
Author Organization [facility] Address [address] [place] [address] Care Team Providers Care Fire Management Technician Name Role Phone Robert Mustafa MD Primary Care Provider [phone] Encounter Details Date Type Department Care Team (Latest Contact Info) Description 09/02/2003 Outpatient Historical [facility] Medicine [place] [address] [address] Dorie Salazar MD NO ADDRESS ON FILE BACKACHE NOS (Primary Dx); FOREIGN BODY FINGER Social History Tobacco Use Types Packs/Day Years Used Date Smoking Tobacco: Never Assessed Sex and Gender Information Value Date Recorded Sex Assigned at Not on file 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 Gender Identity Not on file Sexual Orientation Not on file documented as of this encounter Plan of Treatment Not on file documented as of this encounter Visit Diagnoses Diagnosis Backache, unspecified- Primary Superficial foreign body of finger without major open wound and without infection superficial foreign body of finger without major open wound and without infection documented in this encounter Additional Health Concerns Infection Onset Date Last Indicated Resolved Time R/O COVID-19 06/08/2020 06/10/2020 06/12/2020 4:45 AM KITCHEN DESIGNER documented as of this encounter Care Teams Fire Management Technician Relationship Specialty Start Date End Date Robert Mustafa MD [address] [address] PCP - General Family Practice 02/25/16 documented as of this encounter
--- OUTSIDE RECORDS SUMMARY | 2025-01-01 10:09 | XMS_ITS | Encounter Summary ---
Author Organization [facility] Address [address] [place] [address] Care Team Providers Care Maintenance Instructor Name Role Phone Robert Mustafa MD Primary Care Provider [phone] Encounter Details Date Type Department Care Team (Latest Contact Info) Description 05/18/2005 Outpatient Historical [facility] [address] 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 STATEMENT PROCESSOR Gender Identity Not on file Sexual Orientation Not on file documented as of this encounter Plan of Treatment Not on file documented as of this encounter Visit Diagnoses Diagnosis Hemorrhage of gastrointestinal tract, unspecified- Primary documented in this encounter Additional Health Concerns Infection Onset Date Last Indicated Resolved Time R/O COVID-19 06/08/2020 06/10/2020 06/12/2020 4:45 AM STATEMENT PROCESSOR documented as of this encounter Care Teams Maintenance Instructor Relationship Specialty Start Date End Date Robert Mustafa MD [address] [facility] [address] [place] [phone] PCP - General Family Practice 02/25/16 documented as of this encounter
--- OUTSIDE RECORDS SUMMARY | 2025-01-01 10:09 | XMS_ITS | Encounter Summary ---
Author Organization [facility] Address [address] [place] [address] Care Team Providers Care White Metal Corrosion Proofer Name Role Phone Robert Mustafa MD Primary Care Provider [phone] [phone] Encounter Details Date Type Department Care Team (Latest Contact Info) Description 09/08/2005 Outpatient [facility] [address] [place] [address] Ramesh Berger MD NO ADDRESS ON FILE Acute Stomach Ulcer (Primary Dx) Social History Tobacco Use Types Packs/Day Years Used Date Smoking Tobacco: Never Assessed Sex and Gender Information Value Date Recorded Sex Assigned at Not on file 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 Gender Identity Not on file Sexual Orientation Not on file documented as of this encounter Plan of Treatment Not on file documented as of this encounter Visit Diagnoses Diagnosis Acute gastric ulcer without mention of hemorrhage, perforation, or obstruction- Primary documented in this encounter Additional Health Concerns Infection Onset Date Last Indicated Resolved Time R/O COVID-19 06/08/2020 06/10/2020 06/12/2020 4:45 AM PRESCHOOL TEACHER AIDE documented as of this encounter Care Teams White Metal Corrosion Proofer Relationship Specialty Start Date End Date Robert Mustafa MD [address] [facility] [address] [place] [phone] PCP - General Family Practice 02/25/16 documented as of this encounter
--- OUTSIDE RECORDS SUMMARY | 2025-01-01 10:09 | XMS_ITS | Encounter Summary ---
Author Organization [facility] Address [address] [place] [address] Care Team Providers Care Lan Administrator Name Role Phone Robert Mustafa MD Primary Care Provider [phone] Encounter Details Date Type Department Care Team (Latest Contact Info) Description 05/06/2003 Outpatient Historical [facility] [address] [place] [address] Jarvis De Leon DO NO ADDRESS ON FILE BACKACHE NOS (Primary Dx) Social History Tobacco Use Types Packs/Day Years Used Date Smoking Tobacco: Never Assessed Sex and Gender Information Value Date Recorded Sex Assigned at Not on file Legal Sex Male 4:44 AM MOLDER Gender Identity Not on file Sexual Orientation Not on file documented as of this encounter Plan of Treatment Not on file documented as of this encounter Visit Diagnoses Diagnosis Backache, unspecified- Primary documented in this encounter Additional Health Concerns Infection Onset Date Last Indicated Resolved Time R/O COVID-19 06/08/2020 06/10/2020 06/12/2020 4:45 AM MOLDER documented as of this encounter Care Teams Lan Administrator Relationship Specialty Start Date End Date Robert Mustafa MD [address] [facility] [address] [place] [phone] PCP - General Family Practice 02/25/16 documented as of this encounter
--- OUTSIDE RECORDS SUMMARY | 2025-01-01 10:09 | XMS_ITS | Encounter Summary ---
Author Organization [facility] Address [address] [place] [address] Care Team Providers Care Adoption Coordinator Name Role Phone Robert Mustafa MD Primary Care Provider [phone] [phone] Encounter Details Date Type Department Care Team (Latest Contact Info) Description 02/17/2002 Outpatient Historical [facility] [address] [place] [phone] Jonathon Osorio MD [address] [address] OBESITY NOS (Primary Dx); Dietary surveil/residential child care counselor Social History Tobacco Use Types Packs/Day Years Used Date Smoking Tobacco: Never Assessed Sex and Gender Information Value Date Recorded Sex Assigned at Not on file Legal Sex Male 4:44 AM SOLE LAYER HAND Gender Identity Not on file Sexual Orientation Not on file documented as of this encounter Plan of Treatment Not on file documented as of this encounter Visit Diagnoses Diagnosis Obesity, unspecified- Primary Dietary surveil/residential child care counselor Dietary surveillance and counseling documented in this encounter Additional Health Concerns Infection Onset Date Last Indicated Resolved Time R/O COVID-19 06/08/2020 06/10/2020 06/12/2020 4:45 AM SOLE LAYER HAND documented as of this encounter Care Teams Adoption Coordinator Relationship Specialty Start Date End Date Robert Mustafa MD [address] [facility] [address] [place] [phone] PCP - General Family Practice 02/25/16 documented as of this encounter
--- OUTSIDE RECORDS SUMMARY | 2025-01-01 10:09 | XMS_ITS | Encounter Summary ---
Author Organization [facility] Address [address] [place] [address] Care Team Providers Care Child Adolescent Psychiatrist Name Role Phone Robert Mustafa MD Primary Care Provider [phone] Encounter Details Date Type Department Care Team (Latest Contact Info) Description 07/06/1999 Outpatient Historical [facility] [address] [place] [address] Clarence Dodson, DO [address] [place] [address] Attention to dressings and sutures (Primary Dx) Social History Tobacco Use Types Packs/Day Years Used Date Smoking Tobacco: Never Assessed Sex and Gender Information Value Date Recorded Sex Assigned at Not on file Legal Sex Male 4:44 AM EMISSIONS ENGINEER Gender Identity Not on file Sexual Orientation Not on file documented as of this encounter Plan of Treatment Not on file documented as of this encounter Visit Diagnoses Diagnosis Attention to dressings and sutures- Primary documented in this encounter Additional Health Concerns Infection Onset Date Last Indicated Resolved Time R/O COVID-19 06/08/2020 06/10/2020 06/12/2020 4:45 AM EMISSIONS ENGINEER documented as of this encounter Care Teams Child Adolescent Psychiatrist Relationship Specialty Start Date End Date Robert Mustafa MD [address] [facility] [address] [place] [phone] PCP - General Family Practice 02/25/16 documented as of this encounter
--- OUTSIDE RECORDS SUMMARY | 2025-01-01 10:09 | XMS_ITS | Encounter Summary ---
Author Organization [facility] Address [address] Perez: Epic Prelude ADT JUDIT MINER [address] Care Team Providers Care Fur Storage Clerk Name Role Phone Robert Mustafa MD Primary Care Provider [phone] [phone] Encounter Details Date Type Department Care Team (Late st Contact Info) Description 12/25/2001 Outpatient Historical Guera Oates, RFP WRITER [address] [place] [address] Social History Tobacco Use Types Packs/Day Years Used Date Smoking Tobacco: Never Assessed Sex and Gender Information Value Date Recorded Sex Assigned at Not on file Legal Sex Male 4:44 AM ONCOLOGY RESEARCH RN Gender Identity Not on file Sexual Orientation Not on file documented as of this encounter Plan of Treatment Not on file documented as of this encounter Visit Diagnoses Not on filedocumented in this encounter Additional Health Concerns Infection Onset Date Last Indicated Resolved Time R/O COVID-19 06/08/2020 06/10/2020 06/12/2020 4:45 AM ONCOLOGY RESEARCH RN documented as of this encounter Care Teams Fur Storage Clerk Relationship Specialty Start Date End Date Robert Mustafa MD [address] [place] [phone] PCP - General Family Practice 02/25/16 documented as of this encounter
--- OUTSIDE RECORDS SUMMARY | 2025-01-01 10:09 | XMS_ITS | Encounter Summary ---
Author Organization [facility] Address [address] [place] [address] Care Team Providers Care Supervisor Metal Fabricating Name Role Phone Robert Mustafa MD Primary Care Provider +1 -[phone] Encounter Details Date Type Department Care Team (Latest Contact Info) Description 12/27/2001 Outpatient Historical [facility] [address] [place] [address] Dorie Salazar MD NO ADDRESS ON FILE BACKACHE NOS (Primary Dx) Social History Tobacco Use Types Packs/Day Years Used Date Smoking Tobacco: Never Assessed Sex and Gender Information Value Date Recorded Sex Assigned at Not on file Legal Sex Male 4:44 AM SENIOR ANALYST DEVELOPER Gender Identity Not on file Sexual Orientation Not on file documented as of this encounter Plan of Treatment Not on file documented as of this encounter Visit Diagnoses Diagnosis Backache, unspecified- Primary documented in this encounter Additional Health Concerns Infection Onset Date Last Indicated Resolved Time R/O COVID-19 06/08/2020 06/10/2020 06/12/2020 4:45 AM SENIOR ANALYST DEVELOPER documented as of this encounter Care Teams Supervisor Metal Fabricating Relationship Specialty Start Date End Date Robert Mustafa MD [address] [facility] [address] [place] [address] PCP - General Family Practice 02/25/16 documented as of this encounter
--- OUTSIDE RECORDS SUMMARY | 2025-01-01 10:09 | XMS_ITS | Encounter Summary ---
Author Organization [facility] Address [address] [place] [address] Care Team Providers Care Cloth Feeder Name Role Phone Robert Mustafa MD Primary Care Provider +1 -[phone] Encounter Details Date Type Department Care Team (Latest Contact Info) Description 10/14/2003 Outpatient Historical [facility] [place] [address] [address] Jarvis De Leon DO NO ADDRESS ON FILE BACKACHE NOS (Primary Dx) Social History Tobacco Use Types Packs/Day Years Used Date Smoking Tobacco: Never Assessed Sex and Gender Information Value Date Recorded Sex Assigned at Not on file Legal Sex Male 4:44 AM HARD TILE SETTER APPRENTICE Gender Identity Not on file Sexual Orientation Not on file documented as of this encounter Plan of Treatment Not on file documented as of this encounter Visit Diagnoses Diagnosis Backache, unspecified- Primary documented in this encounter Additional Health Concerns Infection Onset Date Last Indicated Resolved Time R/O COVID-19 06/08/2020 06/10/2020 06/12/2020 4:45 AM HARD TILE SETTER APPRENTICE documented as of this encounter Care Teams Cloth Feeder Relationship Specialty Start Date End Date Robert Mustafa MD [address] [address] PCP - General Family Practice 02/25/16 documented as of this encounter
--- OUTSIDE RECORDS SUMMARY | 2025-01-01 10:09 | XMS_ITS | Encounter Summary ---
Author Organization [facility] Address [address] Perez: Epic Prelude ADT JUDIT MINER [address] Care Team Providers Care Sales Recruiting Coordinator Name Role Phone Robert Mustafa MD Primary Care Provider +1 -[phone] Encounter Details Date Type Department Care Team (Late st Contact Info) Description 01/17/2002 Outpatient Historical Guera Oates, PRINCIPAL QUALITY ENGINEER [address] [place] [address] Social History Tobacco Use Types Packs/Day Years Used Date Smoking Tobacco: Never Assessed Sex and Gender Information Value Date Recorded Sex Assigned at Not on file Legal Sex Male 4:44 AM SOFTWARE QUALITY ANALYST Gender Identity Not on file Sexual Orientation Not on file documented as of this encounter Plan of Treatment Not on file documented as of this encounter Visit Diagnoses Not on filedocumented in this encounter Additional Health Concerns Infection Onset Date Last Indicated Resolved Time R/O COVID-19 06/08/2020 06/10/2020 06/12/2020 4:45 AM SOFTWARE QUALITY ANALYST documented as of this encounter Care Teams Sales Recruiting Coordinator Relationship Specialty Start Date End Date Robert Mustafa MD [address] [place] [address] PCP - General Family Practice 02/25/16 documented as of this encounter
--- OUTSIDE RECORDS SUMMARY | 2025-01-01 10:09 | XMS_ITS | Encounter Summary ---
Author Organization [facility] Address [address] [place] [address] Care Team Providers Care Hebrew Teacher Name Role Phone Robert Musatfa MD Primary Care Provider +1 -[phone] Encounter Details Date Type Department Care Team (Latest Contact Info) Description 12/25/2001 Outpatient Historical [facility] [address] [address] Jonathon Osorio MD [address] [facility] [address] [place] [address] BACKACHE NOS (Primary Dx); ABNORMAL WEIGHT GAIN; OTHER MALAISE AND FATIGUE Social History Tobacco Use Types Packs/Day Years Used Date Smoking Tobacco: Never Assessed Sex and Gender Information Value Date Recorded Sex Assigned at Not on file Legal Sex Male 4:44 AM MANAGEMENT ADVISOR Gender Identity Not on file Sexual Orientation Not on file documented as of this encounter Plan of Treatment Not on file documented as of this encounter Visit Diagnoses Diagnosis Backache, unspecified- Primary Abnormal weight gain Other malaise and fatigue documented in this encounter Additional Health Concerns Infection Onset Date Last Indicated Resolved Time R/O COVID-19 06/08/2020 06/10/2020 06/12/2020 4:45 AM MANAGEMENT ADVISOR documented as of this encounter Care Teams Hebrew Teacher Relationship Specialty Start Date End Date Robert Mustafa MD [address] [address] PCP - General Family Practice 02/25/16 documented as of this encounter
--- OUTSIDE RECORDS SUMMARY | 2025-01-01 10:09 | XMS_ITS | Encounter Summary ---
Author Organization [facility] Address [address] [place] [address] Care Team Providers Care Screen Tender Name Role Phone Robert Mustafa MD Primary Care Provider +1 [phone] Encounter Details Date Type Department Care Team (Latest Contact Info) Description 09/08/2005 Outpatient Historical [facility] [address] [place] [phone] Ramesh Berger MD NO ADDRESS ON FILE Gunn's Esophagus (Primary Dx) Social History Tobacco Use Types Packs/Day Years Used Date Smoking Tobacco: Never Assessed Sex and Gender Information Value Date Recorded Sex Assigned at Not on file Legal Sex Male 4:44 AM WAX PUMPER Gender Identity Not on file Sexual Orientation Not on file documented as of this encounter Plan of Treatment Not on file documented as of this encounter Visit Diagnoses Diagnosis Gunn's esophagus- Primary documented in this encounter Additional Health Concerns Infection Onset Date Last Indicated Resolved Time R/O COVID-19 06/08/2020 06/10/2020 06/12/2020 4:45 AM WAX PUMPER documented as of this encounter Care Teams Screen Tender Relationship Specialty Start Date End Date Robert Mustafa MD [address] [facility] [place] [address] PCP - General Family Practice 02/25/16 documented as of this encounter
--- OUTSIDE RECORDS SUMMARY | 2025-01-01 10:09 | XMS_ITS | Encounter Summary ---
Author Organization [facility] Address [address] [facility] [address] [place]: Epic Prelude ADT JUDIT MINER [address] Care Team Providers Care Senior Auditor Name Role Phone Robert Mustafa MD Primary Care Provider +1 [phone] Encounter Details Date Type Department Care Team (Late st Contact Info) Description 03/06/2001 Outpatient Historical Non-Staff, Physician NO ADDRESS ON FILE Social History Tobacco Use Types Packs/Day Years Used Date Smoking Tobacco: Never Assessed Sex and Gender Information Value Date Recorded Sex Assigned at Not on file Legal Sex Male 4:44 AM SLASH TRIMMER Gender Identity Not on file Sexual Orientation Not on file documented as of this encounter Plan of Treatment Not on file documented as of this encounter Visit Diagnoses Not on filedocumented in this encounter Additional Health Concerns Infection Onset Date Last Indicated Resolved Time R/O COVID-19 06/08/2020 06/10/2020 06/12/2020 4:45 AM SLASH TRIMMER documented as of this encounter Care Teams Senior Auditor Relationship Specialty Start Date End Date Robert Mustafa MD [address] [facility] [address] [place] [address] PCP - General Family Practice 02/25/16 documented as of this encounter
--- OUTSIDE RECORDS SUMMARY | 2025-01-01 10:09 | XMS_ITS | Encounter Summary ---
Author Organization [facility] Address [address] [place] [address] Care Team Providers Care Bog Worker Name Role Phone Robert Mustafa MD Primary Care Provider +1 [phone] Encounter Details Date Type Department Care Team (Latest Contact Info) Description 10/21/2004 Outpatient Historical [facility] [place] [address] [address] Jarvis De Leon DO NO ADDRESS ON FILE BACKACHE NOS (Primary Dx) Social History Tobacco Use Types Packs/Day Years Used Date Smoking Tobacco: Never Assessed Sex and Gender Information Value Date Recorded Sex Assigned at Not on file Legal Sex Male 4:44 AM PEDIATRIC PSYCHIATRIST Gender Identity Not on file Sexual Orientation Not on file documented as of this encounter Plan of Treatment Not on file documented as of this encounter Visit Diagnoses Diagnosis Backache, unspecified- Primary documented in this encounter Additional Health Concerns Infection Onset Date Last Indicated Resolved Time R/O COVID-19 06/08/2020 06/10/2020 06/12/2020 4:45 AM PEDIATRIC PSYCHIATRIST documented as of this encounter Care Teams Bog Worker Relationship Specialty Start Date End Date Robert Mustafa MD [address] [address] PCP - General Family Practice 02/25/16 documented as of this encounter
--- OUTSIDE RECORDS SUMMARY | 2025-01-01 10:09 | XMS_ITS | Encounter Summary ---
Author Organization [facility] Address [address] [place] [address] Care Team Providers Care Equal Opportunity Director Name Role Phone Robert Mustafa MD Primary Care Provider +1 [phone] Encounter Details Date Type Department Care Team (Latest Contact Info) Description 09/13/2005 Outpatient Historical [facility] Medicine- [address] [place] [address] Jarvis De Leon, NO ADDRESS ON FILE Obesity, Unspecified (Primary Dx); Lumbago Social History Tobacco Use Types Packs/Day Years Used Date Smoking Tobacco: Never Assessed Sex and Gender Information Value Date Recorded Sex Assigned at Not on file Legal Sex Male 4:44 AM LEGUILLON DEBEADER Gender Identity Not on file Sexual Orientation Not on file documented as of this encounter Plan of Treatment Not on file documented as of this encounter Visit Diagnoses Diagnosis Obesity, unspecified- Primary Lumbago documented in this encounter Additional Health Concerns Infection Onset Date Last Indicated Resolved Time R/O COVID-19 06/08/2020 06/10/2020 06/12/2020 4:45 AM LEGUILLON DEBEADER documented as of this encounter Care Teams Equal Opportunity Director Relationship Specialty Start Date End Date Robert Mustafa MD [address] [facility] 60 [place] [address] PCP - General Family Practice 02/25/16 documented as of this encounter
--- OUTSIDE RECORDS SUMMARY | 2025-01-01 10:09 | XMS_ITS | Encounter Summary ---
Author Organization [facility] Address [address] [place] [address] Care Team Providers Care Patient Relations Director Name Role Phone Robert Mustafa MD Primary Care Provider +1 [phone] Encounter Details Date Type Department Care Team (Late st Contact Info) Description 05/07/[address] [facility] [address] [place] [address] Toni Torrez MD [address] [address] Social History Tobacco Use Types Packs/Day Years Used Date Smoking Tobacco: Never Assessed Sex and Gender Information Value Date Recorded Sex Assigned at Not on file Legal Sex Male 4:44 AM REGULATORY LAW SPECIALIST Gender Identity Not on file Sexual Orientation Not on file documented as of this encounter Plan of Treatment Not on file documented as of this encounter Visit Diagnoses Not on filedocumented in this encounter Additional Health Concerns Infection Onset Date Last Indicated Resolved Time R/O COVID-19 06/08/2020 06/10/2020 06/12/2020 4:45 AM REGULATORY LAW SPECIALIST documented as of this encounter Care Teams Patient Relations Director Relationship Specialty Start Date End Date Robert Mustaaf MD [address] [facility] [address] [place] [address] PCP - General Family Practice 02/25/16 documented as of this encounter
--- OUTSIDE RECORDS SUMMARY | 2025-01-01 10:09 | XMS_ITS | Encounter Summary ---
Author Organization [facility] Address [address] [place] [address] Care Team Providers Care Technical Spec Name Role Phone Robert Mustafa MD Primary Care Provider +1 -[phone] Encounter Details Date Type Department Care Team (Latest Contact Info) Description 01/17/2002 Outpatient Historical [facility] [address] [place] [address] Jarvis De Leon DO NO ADDRESS ON FILE OTHER MALAISE AND FATIGUE (Primary Dx) Social History Tobacco Use Types Packs/Day Years Used Date Smoking Tobacco: Never Assessed Sex and Gender Information Value Date Recorded Sex Assigned at Not on file Legal Sex Male 4:44 AM CASTING PLUG ASSEMBLER Gender Identity Not on file Sexual Orientation Not on file documented as of this encounter Plan of Treatment Not on file documented as of this encounter Visit Diagnoses Diagnosis Other malaise and fatigue- Primary documented in this encounter Additional Health Concerns Infection Onset Date Last Indicated Resolved Time R/O COVID-19 06/08/2020 06/10/2020 06/12/2020 4:45 AM CASTING PLUG ASSEMBLER documented as of this encounter Care Teams Technical Spec Relationship Specialty Start Date End Date Robert Mustafa MD [address] [place] [address] PCP - General Family Practice 02/25/16 documented as of this encounter
--- OUTSIDE RECORDS SUMMARY | 2025-01-01 10:09 | XMS_ITS | Encounter Summary ---
Author Organization [facility] Address [address] [place] [address] Care Team Providers Care Customer Support Representative Name Role Phone Robert Mustafa MD Primary Care Provider +1 -[phone] Encounter Details Date Type Department Care Team (Latest Contact Info) Description 04/12/2005 Outpatient Historical [facility] Medicine [place] [address] [address] Jarvis De Leon DO NO ADDRESS ON FILE BACKACHE NOS (Primary Dx) Social History Tobacco Use Types Packs/Day Years Used Date Smoking Tobacco: Never Assessed Sex and Gender Information Value Date Recorded Sex Assigned at Not on file Legal Sex Male 4:44 AM VICE PRESIDENT BUSINESS & CORPORATE DEVELOPMENT Gender Identity Not on file Sexual Orientation Not on file documented as of this encounter Plan of Treatment Not on file documented as of this encounter Visit Diagnoses Diagnosis Backache, unspecified- Primary documented in this encounter Additional Health Concerns Infection Onset Date Last Indicated Resolved Time R/O COVID-19 06/08/2020 06/10/2020 06/12/2020 4:45 AM VICE PRESIDENT BUSINESS & CORPORATE DEVELOPMENT documented as of this encounter Care Teams Customer Support Representative Relationship Specialty Start Date End Date Robert Mustafa MD [address] [address] PCP - General Family Practice 02/25/16 documented as of this encounter
--- OUTSIDE RECORDS SUMMARY | 2025-01-01 10:09 | XMS_ITS | Encounter Summary ---
Author Organization [facility] Address [address] [facility] [address] Perez: Epic Prelude ADT JUDIT MINER [address] Care Team Providers Care Reconnaissance Crewmember Name Role Phone Robert Mustafa MD Primary Care Provider +1 -[phone] Encounter Details Date Type Department Care Team (Late st Contact Info) Description 12/25/2001 Outpatient Historical Guera Oates, SENIOR WINDOWS SYSTEMS ENGINEER [address] [place] [address] Social History Tobacco Use Types Packs/Day Years Used Date Smoking Tobacco: Never Assessed Sex and Gender Information Value Date Recorded Sex Assigned at Not on file Legal Sex Male 4:44 AM TIME MOTION ANALYST Gender Identity Not on file Sexual Orientation Not on file documented as of this encounter Plan of Treatment Not on file documented as of this encounter Visit Diagnoses Not on filedocumented in this encounter Additional Health Concerns Infection Onset Date Last Indicated Resolved Time R/O COVID-19 06/08/2020 06/10/2020 06/12/2020 4:45 AM TIME MOTION ANALYST documented as of this encounter Care Teams Reconnaissance Crewmember Relationship Specialty Start Date End Date Robert Mustafa MD [address] [place] [address] PCP - General Family Practice 02/25/16 documented as of this encounter
--- OUTSIDE RECORDS SUMMARY | 2025-01-01 10:09 | XMS_ITS | Encounter Summary ---
Author Organization [facility] Address [address] [place] [address] Care Team Providers Care Svp Programmatic Tv Name Role Phone Robert Mustafa MD Primary Care Provider +1 [phone] Encounter Details Date Type Department Care Team (Latest Contact Info) Description 02/13/2006 Outpatient Historical [facility] [place] [address] [place] [address] AMBULANCE, [facility] Injury, Other and Unspecified, Elbow, Forearm, and Wrist (Primary Dx) Social History Tobacco Use Types Packs/Day Years Used Date Smoking Tobacco: Never Assessed Sex and Gender Information Value Date Recorded Sex Assigned at Not on file Legal Sex Male 4:44 AM VENEREAL DISEASE INVESTIGATOR Gender Identity Not on file Sexual Orientation Not on file documented as of this encounter Plan of Treatment Not on file documented as of this encounter Visit Diagnoses Diagnosis Injury, other and unspecified, elbow, forearm, and wrist- Primary documented in this encounter Additional Health Concerns Infection Onset Date Last Indicated Resolved Time R/O COVID-19 06/08/2020 06/10/2020 06/12/2020 4:45 AM VENEREAL DISEASE INVESTIGATOR documented as of this encounter Care Teams Svp Programmatic Tv Relationship Specialty Start Date End Date Robert Mustafa MD [address] [place] [address] PCP - General Family Practice 02/25/16 documented as of this encounter
--- OUTSIDE RECORDS SUMMARY | 2025-01-01 10:09 | XMS_ITS | Encounter Summary ---
Author Organization [facility] Address [address] [place] [address] Care Team Providers Care Medical Biller Coder Name Role Phone Robert Mustafa MD Primary Care Provider +1 -[phone] Encounter Details Date Type Department Care Team (Latest Contact Info) Description 02/13/2006 Outpatient Historical [facility] [address] [place] [address] AMBULANCE, [place] Open Fracture of Unspecified Part of Humerus (Primary Dx) Social History Tobacco Use Types Packs/Day Years Used Date Smoking Tobacco: Never Assessed Sex and Gender Information Value Date Recorded Sex Assigned at Not on file Legal Sex Male 4:44 AM SUPERVISOR CAB Gender Identity Not on file Sexual Orientation Not on file documented as of this encounter Plan of Treatment Not on file documented as of this encounter Visit Diagnoses Diagnosis Open fracture of unspecified part of humerus- Primary documented in this encounter Additional Health Concerns Infection Onset Date Last Indicated Resolved Time R/O COVID-19 06/08/2020 06/10/2020 06/12/2020 4:45 AM SUPERVISOR CAB documented as of this encounter Care Teams Medical Biller Coder Relationship Specialty Start Date End Date Robert Mustafa MD [address] [facility] [address] [place] [address] PCP - General Family Practice 02/25/16 documented as of this encounter
--- OUTSIDE RECORDS SUMMARY | 2025-01-01 10:09 | XMS_ITS | Encounter Summary ---
Author Organization [facility] Address [address] [place] [address] Care Team Providers Care Correctional Counselor Name Role Phone Robert Mustafa MD Primary Care Provider +1 -[phone] Encounter Details Date Type Department Care Team (Latest Contact Info) Description 07/11/2002 Outpatient Historical [facility] [address] [place] [address] Dorie Salazar MD NO ADDRESS ON FILE BACKACHE NOS (Primary Dx) Social History Tobacco Use Types Packs/Day Years Used Date Smoking Tobacco: Never Assessed Sex and Gender Information Value Date Recorded Sex Assigned at Not on file Legal Sex Male 4:44 AM INFORMATION SYSTEMS SUPERVISOR Gender Identity Not on file Sexual Orientation Not on file documented as of this encounter Plan of Treatment Not on file documented as of this encounter Visit Diagnoses Diagnosis Backache, unspecified- Primary documented in this encounter Additional Health Concerns Infection Onset Date Last Indicated Resolved Time R/O COVID-19 06/08/2020 06/10/2020 06/12/2020 4:45 AM INFORMATION SYSTEMS SUPERVISOR documented as of this encounter Care Teams Correctional Counselor Relationship Specialty Start Date End Date Robert Mustafa MD [address] [facility] [address] [place] [address] PCP - General Family Practice 02/25/16 documented as of this encounter
--- OUTSIDE RECORDS SUMMARY | 2025-01-01 10:09 | XMS_ITS | Encounter Summary ---
Author Organization [facility] Address [address] [place] [address] Care Team Providers Care Emc Storage Architect Name Role Phone Robert Mustafa MD Primary Care Provider +1 -[phone] Encounter Details Date Type Department Care Team (Latest Contact Info) Description 09/22/2002 Outpatient Historical [facility] [address] [place] [address] Jonathon Osorio MD [address] [facility] [address] [place] [address] Sprain lumbar region (Primary Dx) Social History Tobacco Use Types Packs/Day Years Used Date Smoking Tobacco: Never Assessed Sex and Gender Information Value Date Recorded Sex Assigned at Not on file Legal Sex Male 4:44 AM STONE TRIMMER Gender Identity Not on file Sexual Orientation Not on file documented as of this encounter Plan of Treatment Not on file documented as of this encounter Visit Diagnoses Diagnosis Sprain lumbar region- Primary Sprain of lumbar region documented in this encounter Additional Health Concerns Infection Onset Date Last Indicated Resolved Time R/O COVID-19 06/08/2020 06/10/2020 06/12/2020 4:45 AM STONE TRIMMER documented as of this encounter Care Teams Emc Storage Architect Relationship Specialty Start Date End Date Robert Mustafa MD [address] [facility] [address] [place] [address] PCP - General Family Practice 02/25/16 documented as of this encounter
--- OUTSIDE RECORDS SUMMARY | 2025-01-01 10:09 | XMS_ITS | Encounter Summary ---
Author Organization [facility] Address [address] [place] [address] Care Team Providers Care Property Management Intern Name Role Phone Robert Mutsafa MD Primary Care Provider +1 [phone] Encounter Details Date Type Department Care Team (Latest Contact Info) Description 07/13/2005 Outpatient [facility] Gastroenterology[address] [place] [address] Ramesh Berger MD NO ADDRESS ON FILE PEPTIC ULCER NOS (Primary Dx); ESOPHAGEAL HEMORRHAGE Social History Tobacco Use Types Packs/Day Years Used Date Smoking Tobacco: Never Assessed Sex and Gender Information Value Date Recorded Sex Assigned at Not on file Legal Sex Male 4:44 AM JIG BORER Gender Identity Not on file Sexual Orientation Not on file documented as of this encounter Plan of Treatment Not on file documented as of this encounter Visit Diagnoses Diagnosis Peptic ulcer, unspecified site, unspecified as acute or chronic, without mention of hemorrhage, perforation, or obstruction- Primary Esophageal hemorrhage documented in this encounter Additional Health Concerns Infection Onset Date Last Indicated Resolved Time R/O COVID-19 06/08/2020 06/10/2020 06/12/2020 4:45 AM JIG BORER documented as of this encounter Care Teams Property Management Intern Relationship Specialty Start Date End Date Robert Mustafa MD [address] [facility] [address] [place] [phone] PCP - General Family Practice 02/25/16 documented as of this encounter
--- OUTSIDE RECORDS SUMMARY | 2025-01-01 10:09 | XMS_ITS | Encounter Summary ---
Author Organization [facility] Address [address] [place] [address] Care Team Providers Care Senior Living Advisor Name Role Phone Robert Mustafa MD Primary Care Provider +1 [phone] Encounter Details Date Type Department Care Team (Latest Contact Info) Description 12/31/2003 Outpatient Historical [facility] Medicine [place] [address] [address] Guera Oates, PROPOSAL REP [address] [place] [address] IMPOTENCE, ORGANIC ORIGN (Primary Dx) Social History Tobacco Use Types Packs/Day Years Used Date Smoking Tobacco: Never Assessed Sex and Gender Information Value Date Recorded Sex Assigned at Not on file Legal Sex Male 4:44 AM CYCLING INSTRUCTOR Gender Identity Not on file Sexual Orientation Not on file documented as of this encounter Plan of Treatment Not on file documented as of this encounter Visit Diagnoses Diagnosis Impotence of organic origin- Primary documented in this encounter Additional Health Concerns Infection Onset Date Last Indicated Resolved Time R/O COVID-19 06/08/2020 06/10/2020 06/12/2020 4:45 AM CYCLING INSTRUCTOR documented as of this encounter Care Teams Senior Living Advisor Relationship Specialty Start Date End Date Robert Mustafa MD [address] [address] PCP - General Family Practice 02/25/16 documented as of this encounter
--- OUTSIDE RECORDS SUMMARY | 2025-01-01 10:09 | XMS_ITS | Encounter Summary ---
Author Organization [facility] Address [address] [place] [address] Care Team Providers Care Edger Tailer Name Role Phone Robert Mustafa MD Primary Care Provider +1 [phone] Encounter Details Date Type Department Care Team (Late st Contact Info) Description 09/17/2003 Outpatient Historical [facility] [address] Jar[address] De Leon, NO ADDRESS ON FILE Social History Tobacco Use Types Packs/Day Years Used Date Smoking Tobacco: Never Assessed Sex and Gender Information Value Date Recorded Sex Assigned at Not on file Legal Sex Male 4:44 AM SLOT FLOOR SUPERVISOR Gender Identity Not on file Sexual Orientation Not on file documented as of this encounter Plan of Treatment Not on file documented as of this encounter Visit Diagnoses Not on filedocumented in this encounter Additional Health Concerns Infection Onset Date Last Indicated Resolved Time R/O COVID-19 06/08/2020 06/10/2020 06/12/2020 4:45 AM SLOT FLOOR SUPERVISOR documented as of this encounter Care Teams Edger Tailer Relationship Specialty Start Date End Date Robert Mustafa MD [address] [facility] [address] [place] [address] PCP - General Family Practice 02/25/16 documented as of this encounter
--- OUTSIDE RECORDS SUMMARY | 2025-01-01 10:09 | XMS_ITS | Encounter Summary ---
Author Organization [facility] Address [address] [place] [address] Care Team Providers Care Pay Agent Name Role Phone Robert Mustafa MD Primary Care Provider +1 [phone] Encounter Details Date Type Department Care Team (Latest Contact Info) Description 09/15/2003 Outpatient Historical [facility] Medicine [place] [address] [address] Jarvis De Leon DO NO ADDRESS ON FILE OBESITY NOS (Primary Dx); BACKACHE NOS Social History Tobacco Use Types Packs/Day Years Used Date Smoking Tobacco: Never Assessed Sex and Gender Information Value Date Recorded Sex Assigned at Not on file Legal Sex Male 4:44 AM PHARMACEUTICAL SALES REPRESENTATIVE Gender Identity Not on file Sexual Orientation Not on file documented as of this encounter Plan of Treatment Not on file documented as of this encounter Visit Diagnoses Diagnosis Obesity, unspecified- Primary Backache, unspecified documented in this encounter Additional Health Concerns Infection Onset Date Last Indicated Resolved Time R/O COVID-19 06/08/2020 06/10/2020 06/12/2020 4:45 AM PHARMACEUTICAL SALES REPRESENTATIVE documented as of this encounter Care Teams Pay Agent Relationship Specialty Start Date End Date Robert Mustafa MD [address] [address] PCP - General Family Practice 02/25/16 documented as of this encounter
--- OUTSIDE RECORDS SUMMARY | 2025-01-01 10:09 | XMS_ITS | Encounter Summary ---
Author Organization [facility] Address [address] [place] [address] Care Team Providers Care Physician [facility] Name Role Phone Robert Mustafa MD Primary Care Provider [phone] [phone] Encounter Details Date Type Department Care Team (Latest Contact Info) Description 05/20/2003 Outpatient Historical [facility] Medicine [place] [address] [address] Jarvis De Leon DO NO ADDRESS ON FILE LUMBAGO (Primary Dx); SCIATICA Social History Tobacco Use Types Packs/Day Years Used Date Smoking Tobacco: Never Assessed Sex and Gender Information Value Date Recorded Sex Assigned at Not on file Legal Sex Male 4:44 AM RESEARCH COORDINATOR Gender Identity Not on file Sexual Orientation Not on file documented as of this encounter Plan of Treatment Not on file documented as of this encounter Visit Diagnoses Diagnosis Lumbago- Primary Sciatica documented in this encounter Additional Health Concerns Infection Onset Date Last Indicated Resolved Time R/O COVID-19 06/08/2020 06/10/2020 06/12/2020 4:45 AM RESEARCH COORDINATOR documented as of this encounter Care Teams Physician [facility] Relationship Specialty Start Date End Date Robert Mustafa MD [address] [address] PCP - General Family Practice 02/25/16 documented as of this encounter
--- OUTSIDE RECORDS SUMMARY | 2025-01-01 10:09 | XMS_ITS | Encounter Summary ---
Author Organization [facility] Address [address] [place] [address] Care Team Providers Care Fire Range Technician Name Role Phone Robert Mustafa MD Primary Care Provider [phone] [phone] Encounter Details Date Type Department Care Team (Late st Contact Info) Description 05/18/2005 Inpatient Historical [facility] IN BED Ramesh Berger MD NO ADDRESS ON FILE MELENA, BLOOD IN STOOL (Primary Dx) Social History Tobacco Use Types Packs/Day Years Used Date Smoking Tobacco: Never Assessed Sex and Gender Information Value Date Recorded Sex Assigned at Not on file Legal Sex Male 4:44 AM VENUE COORDINATOR Gender Identity Not on file Sexual Orientation Not on file documented as of this encounter Plan of Treatment Not on file documented as of this encounter Procedures Procedure Name Priority Date/Time Associated Diagnosis Comments DIFFERENTIAL, MANUAL Routine 05/21/2005 6:05 AM VENUE COORDINATOR CBC WITH DIFFERENTIAL Routine 05/21/2005 6:05 AM VENUE COORDINATOR CBC WITH DIFFERENTIAL Routine 05/20/2005 5:35 AM VENUE COORDINATOR COMPREHENSIVE METABOLIC PANEL Routine 05/20/2005 5:35 AM VENUE COORDINATOR HEMOGLOBIN AND HEMATOCRIT Routine 05/19/2005 2:12 PM VENUE COORDINATOR HELICOBACTER PYLORI IGG Routine 05/19/2005 2:12 PM VENUE COORDINATOR CBC WITH DIFFERENTIAL Routine 05/19/2005 4:47 AM VENUE COORDINATOR BASIC METABOLIC PANEL Routine 05/19/2005 4:47 AM VENUE COORDINATOR HEMOGLOBIN AND HEMATOCRIT Routine 05/18/2005 10:21 PM VENUE COORDINATOR POC ELECTROLYTES/BMP Routine 05/18/2005 6:31 PM VENUE COORDINATOR PT AND APTT Routine 05/18/2005 6:07 PM VENUE COORDINATOR CBC WITH DIFFERENTIAL Routine 05/18/2005 6:07 PM VENUE COORDINATOR COMPREHENSIVE METABOLIC PANEL Routine 05/18/2005 6:07 PM VENUE COORDINATOR documented in this encounter Results * (ABNORMAL) DIFFERENTIAL, MANUAL (05/21/2005 6:05 AM VENUE COORDINATOR) Pathologist [facility] NEUTROPHILS, SEG 34(L) 36 - 66 % INTERFACE SYSTEM LYMPHOCYTES 54(H) 24 - 44 % INTERFAC E SYSTEM MONOCYTE 6 4 - 10 % INTERFACE SYSTEM EOSINOPHILS 5(H) 0 - 3 % INTERFAC E SYSTEM BASOPHILS 1 0 - 1 % INTERFACE SYSTEM PLATELET EST. Decreased( A) Normal INTERFACE SYSTEM RBC MORPHOLOGY Normal Normal INTER FACE SYSTEM 05/21/2005 6:05 AM VENUE COORDINATOR Ramesh Berger MD HEMATOLOGY ORDERABLES COM Final Result INTERFACE SYSTEM Refer to clinic/hospital department * (ABNORMAL) CBC WITH DIFFERENTIAL (05/21/2005 6:05 AM VENUE COORDINATOR) Pathologist [facility] WBC 4.2(L) 4.5 - 11.0 K/ul INTERFACE SYSTEM RBC 3.15(L) 4.60 - 6.20 Mil/ul INTERFACE SYSTEM HEMOGLOBIN 9.8(L) 14.0 - 18.0 g/dL INTERFACE SYSTEM HEMATOCRIT 29.3(L) 41.0 - 53.0 % INTERFACE SYSTEM MCV 93.0 84.0 - 103.0 Fl INTERFACE SYSTEM MCH 31.1 27.0 - 34.0 pg INTERFACE SYSTEM MCHC 33.4 30.0 - 35.0 g/dL INTERFACE SYSTEM RDW 14.6(H) 11.0 - 14.5 % INTERFACE SYSTEM PLATELETS 56(L) 140 - 440 K/ul INTERFACE SYSTEM Comment:RARE PLATELET CLUMPS NOTED. MPV 10.9 8.9 - 12.8 Fl INTERFACE SYSTEM 05/21/2005 6:05 AM VENUE COORDINATOR Ramesh Berger MD HEMATOLOGY ORDERABLES Final Resu lt INTERFACE SYSTEM Refer to clinic/hospital department * (ABNORMAL) CBC WITH DIFFERENTIAL (05/20/2005 5:35 AM VENUE COORDINATOR) WBC 4.2(L) 4.5 - 11.0 K/ul INTERFACE SYSTEM RBC 3.16(L) 4.60 - 6.20 Mil/ul INTERFACE SYSTEM HEMOGLOBIN 9.8(L) 14.0 - 18.0 g/dL INTERFACE SYSTEM HEMATOCRIT 29.4(L) 41.0 - 53.0 % INTERFACE SYSTEM MCV 93.0 84.0 - 103.0 Fl INTERFACE SYSTEM MCH 31.0 27.0 - 34.0 pg INTERFACE SYSTEM MCHC 33.3 30.0 - 35.0 g/dL INTERFACE SYSTEM RDW 14.9(H) 11.0 - 14.5 % INTERFACE SYSTEM PLATELETS 170 140 - 440 K/ul INTERFACE SYSTEM MPV 9.5 8.9 - 12.8 Fl INTERFACE SYSTEM NEUTROPHILS 45.3 42.2 - 75.2 % INTERFACE SYSTEM LYMPHOCYTES 43.1 24.0 - 44.0 % INTERFACE SYSTEM MONOCYTES 8.0 2.0 - 10.0 % INTERFACE SYSTEM EOSINOPHILS 2.9 0.0 - 7.0 % INTERFACE SYSTEM BASOPHILS 0.7 0.0 - 1.0 % INTERFACE SYSTEM NEUTROPHIL ABSOLUTE 1.9(L) 2.0 - 8.0 K/uL INTERFACE SYSTEM LYMPHOCYTE ABSOLUTE 1.8 1.2 - 4.0 K/ul INTERFACE SYSTEM MONOCYTE ABSOLUTE 0.3 0.1 - 0.6 K/ul INTERFACE SYSTEM EOSINOPHIL ABSOLUTE 0.1 0.0 - 0.7 K/ul INTERFACE SYSTEM BASOPHILS ABSOLUTE 0.0 0.0 - 0.2 K/ul INTERFACE SYSTEM 05/20/2005 5:35 AM VENUE COORDINATOR Ramesh Berger MD HEMATOLOGY ORDERABLES Final Resu lt Performing Organization Address City/State/[facility] Phone Number INTERFACE SYSTEM Refer to clinic/hospital department * (ABNORMAL) COMPREHENSIVE METABOLIC PANEL (05/20/2005 5:35 AM VENUE COORDINATOR) GLUCOSE 101 70 - 110 mg/dL INTERFACE SYSTEM BUN 10 9 - 20 mg/dL INTERFACE SYSTEM CREATININE 0.7 0.7 - 1.5 mg/dL INTERFACE SYSTEM SODIUM 139 136 - 145 mEq/L INTERFACE SYSTEM POTASSIUM 3.7 3.5 - 5.0 mEq/L INTERFACE SYSTEM CO2 25 22 - 32 mmol/l INTERFACE SYSTEM CHLORIDE 107 95 - 110 mEq/L INTERFACE SYSTEM CALCIUM 8.8 8.4 - 10.5 mg/dL INTERFACE SYSTEM ALKALINE PHOSPHATASE 48 38 - 126 IU/L INTERFACE SYSTEM TOTAL PROTEIN 5.6(L) 6.3 - 8.2 g/dL INTERFACE SYSTEM ALBUMIN 3.1(L) 3.5 - 5.0 g/dL INTERFACE SYSTEM AST 33 17 - 59 IU/L INTERFACE SYSTEM ALT 50 21 - 72 IU/L INTERFACE SYSTEM BILIRUBIN TOTAL 0.7 0.2 - 1.4 mg/dL INTERFACE SYSTEM GLOBULIN (CALC) 2.5 2.4 - 3.9 g/dL INTERFACE SYSTEM ANION GAP 11 9 - 20 mEq/L INTERFACE SYSTEM ALBUMIN/GLOBULIN RATIO 1.2 1.0 - 2.3 INTERFACE SYSTEM OSMOLALITY, CALCULATED 285 275 - 295 mOsm/Kg INTERFACE SYSTEM 05/20/2005 5:35 AM VENUE COORDINATOR us Ramesh Berger MD CHEMISTRY ORDERABLES Final Resul t Performing Organization Address [facility] Phone Number INTERFACE SYSTEM Refer to clinic/hospital department * HELICOBACTER PYLORI IGG (05/19/2005 2:12 PM VENUE COORDINATOR) H. PYLORI AB Negative Negative INTERFA CE SYSTEM 05/19/2005 2:12 PM VENUE COORDINATOR us Ramesh Berger MD CHEMISTRY ORDERABLES COM Final R esult Performing Organization Address [facility] Phone Number INTERFACE SYSTEM Refer to clinic/hospital department * (ABNORMAL) HEMOGLOBIN AND HEMATOCRIT (05/19/2005 2:12 PM VENUE COORDINATOR) HEMOGLOBIN 9.8(L) 14.0 - 18.0 g/dL INTERFACE SYSTEM HEMATOCRIT 29.3(L) 41.0 - 53.0 % INTERFACE SYSTEM 05/19/2005 2:12 PM VENUE COORDINATOR us Ramesh Berger MD HEMATOLOGY ORDERABLES Final Resu lt INTERFACE SYSTEM Refer to clinic/hospital department * (ABNORMAL) CBC WITH DIFFERENTIAL (05/19/2005 4:47 AM VENUE COORDINATOR) Pathologist [facility] WBC 6.3 4.5 - 11.0 K/ul INTERFACE SYSTEM RBC 2.89(L) 4.60 - 6.20 Mil/ul INTERFACE SYSTEM HEMOGLOBIN 9.0(L) 14.0 - 18.0 g/dL INTERFACE SYSTEM HEMATOCRIT 27.2(L) 41.0 - 53.0 % INTERFACE SYSTEM MCV 94.1 84.0 - 103.0 Fl INTERFACE SYSTEM MCH 31.1 27.0 - 34.0 pg INTERFACE SYSTEM MCHC 33.1 30.0 - 35.0 g/dL INTERFACE SYSTEM RDW 15.6(H) 11.0 - 14.5 % INTERFACE SYSTEM PLATELETS 176 140 - 440 K/ul INTERFACE SYSTEM MPV 9.5 8.9 - 12.8 Fl INTERFACE SYSTEM NEUTROPHILS 51.7 42.2 - 75.2 % INTERFACE SYSTEM LYMPHOCYTES 41.8 24.0 - 44.0 % INTERFACE SYSTEM MONOCYTES 4.9 2.0 - 10.0 % INTERFACE SYSTEM EOSINOPHILS 1.4 0.0 - 7.0 % INTERFACE SYSTEM BASOPHILS 0.2 0.0 - 1.0 % INTERFACE SYSTEM NEUTROPHIL ABSOLUTE 3.3 2.0 - 8.0 K/uL INTERFACE SYSTEM LYMPHOCYTE ABSOLUTE 2.7 1.2 - 4.0 K/ul INTERFACE SYSTEM MONOCYTE ABSOLUTE 0.3 0.1 - 0.6 K/ul INTERFACE SYSTEM EOSINOPHIL ABSOLUTE 0.1 0.0 - 0.7 K/ul INTERFACE SYSTEM BASOPHILS ABSOLUTE 0.0 0.0 - 0.2 K/ul INTERFACE SYSTEM 05/19/2005 4:47 AM VENUE COORDINATOR us Ramesh Berger MD HEMATOLOGY ORDERABLES Final Resu lt INTERFACE SYSTEM Refer to clinic/hospital department * (ABNORMAL) BASIC METABOLIC PANEL (05/19/2005 4:47 AM VENUE COORDINATOR) GLUCOSE 96 70 - 110 mg/dL INTERFACE SYSTEM BUN 19 9 - 20 mg/dL INTERFACE SYSTEM CREATININE 0.6(L) 0.7 - 1.5 mg/dL INTERFACE SYSTEM SODIUM 143 136 - 145 mEq/L INTERFACE SYSTEM POTASSIUM 3.9 3.5 - 5.0 mEq/L INTERFACE SYSTEM CHLORIDE 115(H) 95 - 110 mEq/L INTERFACE SYSTEM CO2 25 22 - 32 mmol/l INTERFACE SYSTEM ANION GAP 7(L) 9 - 20 mEq/L INTERFACE SYSTEM OSMOLALITY, CALCULATED 295 275 - 295 mOsm/Kg INTERFACE SYSTEM CALCIUM 7.9(L) 8.4 - 10.5 mg/dL INTERFACE SYSTEM 05/19/2005 4:47 AM VENUE COORDINATOR us Ramesh Berger MD CHEMISTRY ORDERABLES Final Resul t Performing Organization Address [facility] Phone Number INTERFACE SYSTEM Refer to clinic/hospital department * (ABNORMAL) HEMOGLOBIN AND HEMATOCRIT (05/18/2005 10:21 PM VENUE COORDINATOR) HEMOGLOBIN 9.3(L) 14.0 - 18.0 g/dL INTERFACE SYSTEM HEMATOCRIT 28.4(L) 41.0 - 53.0 % INTERFACE SYSTEM 05/18/2005 10:2 1 PM VENUE COORDINATOR us Ramesh Berger MD HEMATOLOGY ORDERABLES Final Resu lt Performing Organization Address [facility] Phone Number INTERFACE SYSTEM Refer to clinic/hospital department * (ABNORMAL) POC ISTAT 6 (05/18/2005 6:31 PM VENUE COORDINATOR) SODIUM POC 143 136 - 145 mEq/L INTERFACE SYSTEM POTASSIUM POC 3.7 3.5 - 5.0 mEq/L INTERFACE SYSTEM CHLORIDE POC 111(H) 95 - 110 mEq/L INTERFACE SYSTEM GLUCOSE POC 104 70 - 110 mg/dL INTERFACE SYSTEM BLOOD UREA NITROGEN POC 21(H) 9 - 20 mg/dL INTERFACE SYSTEM HEMATOCRIT POC 21.0(L) 41.0 - 53.0 % INTERFACE SYSTEM HEMOGLOBIN POC 7.0(L) 14.0 - 18.0 g/dL INTERFACE SYSTEM 05/18/2005 6:31 PM VENUE COORDINATOR Ramesh Berger MD POINT OF CARE TESTING Final [facility] Performing Organization Address [facility] Phone Number INTERFACE SYSTEM Refer to clinic/hospital department * PT AND APTT (05/18/2005 6:07 PM VENUE COORDINATOR) PROTIME 14.6 12.6 - 14.9 Secs INTERFACE SYSTEM Comment: As of 05 note change in normal range. INR 1.1 INTERFACE SYSTEM Comment: Expected Values for INR: DVT/PE Goal INR 2.5; range 2.0 - 3.0 Valve Replacement Tissue Goal INR 2.5; range 2.0 - 3.0 Mechanical Goal INR 3.0; range 2.5 - 3.5 POST-NH Goal INR 2.5; range 2.0 - 3.0 or Goal 3.0; range 2.5 - 3.5 Atrial Fibrillation Goal INR 2.5; range 2.0 - 3.0 Ischemic Stroke Goal INR 2.5; range 2.0 - 3.0 For additional information see Guidelines for Anticoagulation available from the pharmacy [facility] PTT 26.6 24.3 - 37.5 Secs INTERFACE SYSTEM Comment:Therapeutic Range: 05/18/2005 6:07 PM VENUE COORDINATOR Result [facility] Jim Chacon MD HEMATOLOGY ORDERABLES Final [facility] Performing Organization Address [facility] Phone Number INTERFACE SYSTEM Refer to clinic/hospital department * (ABNORMAL) COMPREHENSIVE METABOLIC PANEL (05/18/2005 6:07 PM VENUE COORDINATOR) GLUCOSE 108 70 - 110 mg/dL INTERFACE SYSTEM BUN 21(H) 9 - 20 mg/dL INTERFACE SYSTEM CREATININE 0.7 0.7 - 1.5 mg/dL INTERFACE SYSTEM SODIUM 142 136 - 145 mEq/L INTERFACE SYSTEM POTASSIUM 3.6 3.5 - 5.0 mEq/L INTERFACE SYSTEM CO2 24 22 - 32 mmol/l INTERFACE SYSTEM CHLORIDE 114(H) 95 - 110 mEq/L INTERFACE SYSTEM CALCIUM 8.1(L) 8.4 - 10.5 mg/dL INTERFACE SYSTEM ALKALINE PHOSPHATASE 49 38 - 126 IU/L INTERFACE SYSTEM TOTAL PROTEIN 5.4(L) 6.3 - 8.2 g/dL INTERFACE SYSTEM ALBUMIN 3.0(L) 3.5 - 5.0 g/dL INTERFACE SYSTEM AST 19 17 - 59 IU/L INTERFACE SYSTEM ALT 38 21 - 72 IU/L INTERFACE SYSTEM BILIRUBIN TOTAL 0.2 0.2 - 1.4 mg/dL INTERFACE SYSTEM GLOBULIN (CALC) 2.4 2.4 - 3.9 g/dL INTERFACE SYSTEM ANION GAP 8(L) 9 - 20 mEq/L INTERFACE SYSTEM ALBUMIN/GLOBULIN RATIO 1.3 1.0 - 2.3 INTERFACE SYSTEM OSMOLALITY, CALCULATED 294 275 - 295 mOsm/Kg INTERFACE SYSTEM 05/18/2005 6:07 PM VENUE COORDINATOR us Jim Chacon MD CHEMISTRY ORDERABLES Final Resul t INTERFACE SYSTEM Refer to clinic/hospital department * (ABNORMAL) CBC WITH DIFFERENTIAL (05/18/2005 6:07 PM VENUE COORDINATOR) WBC 6.7 4.5 - 11.0 K/ul INTERFACE SYSTEM RBC 2.58(L) 4.60 - 6.20 Mil/ul INTERFACE SYSTEM HEMOGLOBIN 8.1(L) 14.0 - 18.0 g/dL INTERFACE SYSTEM HEMATOCRIT 25.0(L) 41.0 - 53.0 % INTERFACE SYSTEM MCV 96.9 84.0 - 103.0 Fl INTERFACE SYSTEM MCH 31.4 27.0 - 34.0 pg INTERFACE SYSTEM MCHC 32.4 30.0 - 35.0 g/dL INTERFACE SYSTEM RDW 13.3 11.0 - 14.5 % INTERFACE SYSTEM PLATELETS 207 140 - 440 K/ul INTERFACE SYSTEM MPV 9.5 8.9 - 12.8 Fl INTERFACE SYSTEM NEUTROPHILS 52.5 42.2 - 75.2 % INTERFACE SYSTEM LYMPHOCYTES 42.3 24.0 - 44.0 % INTERFACE SYSTEM MONOCYTES 4.6 2.0 - 10.0 % INTERFACE SYSTEM EOSINOPHILS 0.3 0.0 - 7.0 % INTERFACE SYSTEM BASOPHILS 0.3 0.0 - 1.0 % INTERFACE SYSTEM NEUTROPHIL ABSOLUTE 3.5 2.0 - 8.0 K/uL INTERFACE SYSTEM LYMPHOCYTE ABSOLUTE 2.8 1.2 - 4.0 K/ul INTERFACE SYSTEM MONOCYTE ABSOLUTE 0.3 0.1 - 0.6 K/ul INTERFACE SYSTEM EOSINOPHIL ABSOLUTE 0.0 0.0 - 0.7 K/ul INTERFACE SYSTEM BASOPHILS ABSOLUTE 0.0 0.0 - 0.2 K/ul INTERFACE SYSTEM PERIPHERAL BLOOD SMEAR REVIEW Smear Reviewed INTERFACE SYSTEM 05/18/2005 6:07 PM VENUE COORDINATOR us Jim Chacon MD HEMATOLOGY ORDERABLES Final Resu lt INTERFACE SYSTEM Refer to clinic/hospital department documented in this encounter Visit Diagnoses Diagnosis Blood in stool- Primary documented in this encounter Additional Health Concerns Infection Onset Date Last Indicated Resolved Time R/O COVID-19 06/08/2020 06/10/2020 06/12/2020 4:45 AM VENUE COORDINATOR documented as of this encounter Care Teams Fire Range Technician Relationship Specialty Start Date End Date Robert Mustafa MD [address] [facility] [address] [place] [phone] PCP - General Family Practice 02/25/16 documented as of this encounter
--- OUTSIDE RECORDS SUMMARY | 2025-01-01 10:09 | XMS_ITS | Encounter Summary ---
Author Organization [facility] Address [address] [place] [address] Care Team Providers Care Press Operator Automatic Name Role Phone Robert Mustafa MD Primary Care Provider [phone] [phone] Encounter Details Date Type Department Care Team (Latest Contact Info) Description 03/12/[address] [facility] [address] [place] [id number] Jonathon Osorio MD [address] [facility] [address] [place] [phone] Dietary surveil/crisis intervention counselor (Primary Dx) Social History Tobacco Use Types Packs/Day Years Used Date Smoking Tobacco: Never Assessed Sex and Gender Information Value Date Recorded Sex Assigned at Not on file Legal Sex Male 4:44 AM PASTRY COOK APPRENTICE Gender Identity Not on file Sexual Orientation Not on file documented as of this encounter Plan of Treatment Not on file documented as of this encounter Visit Diagnoses Diagnosis Dietary surveil/crisis intervention counselor- Primary Dietary surveillance and counseling documented in this encounter Additional Health Concerns Infection Onset Date Last Indicated Resolved Time R/O COVID-19 06/08/2020 06/10/2020 06/12/2020 4:45 AM PASTRY COOK APPRENTICE documented as of this encounter Care Teams Press Operator Automatic Relationship Specialty Start Date End Date Robert Mustafa MD [address] [facility] [address] [place] [phone] PCP - General Family Practice 02/25/16 documented as of this encounter
--- OUTSIDE RECORDS SUMMARY | 2025-01-01 10:10 | XMS_ITS | Encounter Summary ---
Author Organization [facility] Address [address] [place] [address] Care Team Providers Care Product Manager Medical Device Name Role Phone Robert Mustafa MD Primary Care Provider [phone] [phone] Encounter Details Date Type Department Care Team (Latest Contact Info) Description 03/06/2006 Outpatient Historical [facility] [address] [place] [address] Toni Torrez MD [address] [address] Other Specified Pre-Operative Examination (Primary Dx) Social History Tobacco Use Types Packs/Day Years Used Date Smoking Tobacco: Never Assessed Sex and Gender Information Value Date Recorded Sex Assigned at Not on file Legal Sex Male 4:44 AM PROFESSOR OF ANTHROPOLOGY Gender Identity Not on file Sexual Orientation Not on file documented as of this encounter Plan of Treatment Not on file documented as of this encounter Visit Diagnoses Diagnosis Other specified pre-operative examination- Primary documented in this encounter Additional Health Concerns Infection Onset Date Last Indicated Resolved Time R/O COVID-19 06/08/2020 06/10/2020 06/12/2020 4:45 AM PROFESSOR OF ANTHROPOLOGY documented as of this encounter Care Teams Product Manager Medical Device Relationship Specialty Start Date End Date Robert Mustafa MD [address] [facility] [address] [place] [phone] PCP - General Family Practice 02/25/16 documented as of this encounter
--- OUTSIDE RECORDS SUMMARY | 2025-01-01 10:10 | XMS_ITS | Encounter Summary ---
Author Organization [facility] Address [address] [place] [address] Care Team Providers Care Fabrication And Layout Craftsman Name Role Phone Robert Mustafa MD Primary Care Provider [phone] Encounter Details Date Type Department Care Team (Latest Contact Info) Description 03/06/2006 Outpatient Historical [facility] Wound Care [address] [place] [address] Toni Torrez MD [address] [address] Open Wound of Elbow, without Mention of Complication (Primary Dx) Social History Tobacco Use Types Packs/Day Years Used Date Smoking Tobacco: Never Assessed Sex and Gender Information Value Date Recorded Sex Assigned at Not on file Legal Sex Male 4:44 AM SUPERVISOR DRY CELL ASSEMBLY Gender Identity Not on file Sexual Orientation Not on file documented as of this encounter Plan of Treatment Not on file documented as of this encounter Visit Diagnoses Diagnosis Open wound of elbow, without mention of complication- Primary documented in this encounter Additional Health Concerns Infection Onset Date Last Indicated Resolved Time R/O COVID-19 06/08/2020 06/10/2020 06/12/2020 4:45 AM SUPERVISOR DRY CELL ASSEMBLY documented as of this encounter Care Teams Fabrication And Layout Craftsman Relationship Specialty Start Date End Date Robert Mustafa MD [address] [phone] PCP - General Family Practice 02/25/16 documented as of this encounter
--- OUTSIDE RECORDS SUMMARY | 2025-01-01 10:10 | XMS_ITS | Encounter Summary ---
Author Organization [facility] Address [address] [place] [address] Care Team Providers Care Industrial Maintenance Electrician Name Role Phone Robert Mustafa MD Primary Care Provider [phone] Encounter Details Date Type Department Care Team (Late st Contact Info) Description 04/06/2006 Outpatient Historical [facility] Wound Care [address] [place] [address] Toni Torrez MD [address] [address] Social History Tobacco Use Types Packs/Day Years Used Date Smoking Tobacco: Never Assessed Sex and Gender Information Value Date Recorded Sex Assigned at Not on file Legal Sex Male 4:44 AM PAINTER PLATE Gender Identity Not on file Sexual Orientation Not on file documented as of this encounter Plan of Treatment Not on file documented as of this encounter Visit Diagnoses Not on filedocumented in this encounter Additional Health Concerns Infection Onset Date Last Indicated Resolved Time R/O COVID-19 06/08/2020 06/10/2020 06/12/2020 4:45 AM PAINTER PLATE documented as of this encounter Care Teams Industrial Maintenance Electrician Relationship Specialty Start Date End Date Robert Mustafa MD [address] [facility] [address] [place] [phone] PCP - General Family Practice 02/25/16 documented as of this encounter
--- OUTSIDE RECORDS SUMMARY | 2025-01-01 10:10 | XMS_ITS | Encounter Summary ---
Author Organization [facility] Address [address] [place] [address] Care Team Providers Care Boiler Setter Name Role Phone Robert Mustafa MD Primary Care Provider [phone] Encounter Details Date Type Department Care Team (Latest Contact Info) Description 04/09/2006 Outpatient Historical [facility] General and Trauma Surgery-[address] [place] [address] Toni Torrez MD [address] [place] [address] [address] [place] [address] Follow-Up Examination, Following Unspecified Surgery (Primary Dx) Social History Tobacco Use Types Packs/Day Years Used Date Smoking Tobacco: Never Assessed Sex and Gender Information Value Date Recorded Sex Assigned at Not on file Legal Sex Male 4:44 AM RESEARCH CONSULTANT Gender Identity Not on file Sexual Orientation Not on file documented as of this encounter Plan of Treatment Not on file documented as of this encounter Visit Diagnoses Diagnosis Follow-up examination, following unspecified surgery- Primary documented in this encounter Additional Health Concerns Infection Onset Date Last Indicated Resolved Time R/O COVID-19 06/08/2020 06/10/2020 06/12/2020 4:45 AM RESEARCH CONSULTANT documented as of this encounter Care Teams Boiler Setter Relationship Specialty Start Date End Date Robert Mustafa MD [address] [facility] [address] [place] [phone] PCP - General Family Practice 02/25/16 documented as of this encounter
--- OUTSIDE RECORDS SUMMARY | 2025-01-01 10:10 | XMS_ITS | Encounter Summary ---
Author Organization [facility] Address [address] [place] [address] Care Team Providers Care Nitric Acid Plant Operator Name Role Phone Robert Mustafa MD Primary Care Provider [phone] Encounter Details Date Type Department Care Team (Latest Contact Info) Description 03/19/2006 Outpatient Historical [facility] [place] [address] Micky Gutierrez MD NO ADDRESS ON FILE Closed Fracture of Unspecified Part of Upper End of Humerus (Primary Dx); Open Fracture of Olecranon Process of Ulna; Closed Fracture of Metacarpal Bone(s), Site Unspecified Social History Tobacco Use Types Packs/Day Years Used Date Smoking Tobacco: Never Assessed Sex and Gender Information Value Date Recorded Sex Assigned at Not on file Legal Sex Male 4:44 AM WELDER GAS Gender Identity Not on file Sexual Orientation Not on file documented as of this encounter Plan of Treatment Not on file documented as of this encounter Visit Diagnoses Diagnosis Closed fracture of unspecified part of upper end of humerus- Primary Open fracture of olecranon process of ulna Closed fracture of metacarpal bone(s), site unspecified documented in this encounter Additional Health Concerns Infection Onset Date Last Indicated Resolved Time R/O COVID-19 06/08/2020 06/10/2020 06/12/2020 4:45 AM WELDER GAS documented as of this encounter Care Teams Nitric Acid Plant Operator Relationship Specialty Start Date End Date Robert Mustafa MD [address] [facility] [facility] [place] [address] [place] [address] PCP - General Family Practice 02/25/16 documented as of this encounter
--- OUTSIDE RECORDS SUMMARY | 2025-01-01 10:10 | XMS_ITS | Encounter Summary ---
Author Organization [facility] Address [address] [place] [address] Care Team Providers Care Meat Passer Name Role Phone Robert Mustafa MD Primary Care Provider [phone] Encounter Details Date Type Department Care Team (Latest Contact Info) Description 06/11/2006 Outpatient Historical [facility] Orthopedics- [address] [place] [address] Micky Gutierrez MD NO ADDRESS ON FILE [facility] Traumatic Fracture of Upper Arm (Primary Dx); [facility]care for Healing Traumatic Fracture of Lower Arm Social History Tobacco Use Types Packs/Day Years Used Date Smoking Tobacco: Never Assessed Sex and Gender Information Value Date Recorded Sex Assigned at Not on file Legal Sex Male 4:44 AM EXPLOSIVE SPECIALIST Gender Identity Not on file Sexual Orientation Not on file documented as of this encounter Plan of Treatment Not on file documented as of this encounter Visit Diagnoses Diagnosis Aftercare for healing traumatic fracture of upper arm- Primary Aftercare for healing traumatic fracture of lower arm documented in this encounter Additional Health Concerns Infection Onset Date Last Indicated Resolved Time R/O COVID-19 06/08/2020 06/10/2020 06/12/2020 4:45 AM EXPLOSIVE SPECIALIST documented as of this encounter Care Teams Meat Passer Relationship Specialty Start Date End Date Robert Mustafa MD [address] [facility] [address] [place] [phone] PCP - General Family Practice 02/25/16 documented as of this encounter
--- OUTSIDE RECORDS SUMMARY | 2025-01-01 10:10 | XMS_ITS | Encounter Summary ---
Author Organization [facility] Address [address] [place] [address] Care Team Providers Care Florist Supplies Salesperson Name Role Phone Robert Mustafa MD Primary Care Provider [phone] Encounter Details Date Type Department Care Team (Late st Contact Info) Description 06/10/2008 Outpatient Historical [facility] 6CD Neurology [address] [place] [address] Ed, Physician NO ADDRESS ON FILE Naseem Andino DO NO ADDRESS ON FILE Abdullahi Marin MD NO ADDRESS ON FILE Kerry Fierro MD NO ADDRESS ON FILE Social History Tobacco Use Types Packs/Day Years Used Date Smoking Tobacco: Never Assessed Sex and Gender Information Value Date Recorded Sex Assigned at Not on file Legal Sex Male 4:44 AM CUPOLA HOIST OPERATOR Gender Identity Not on file Sexual Orientation Not on file documented as of this encounter Plan of Treatment Not on file documented as of this encounter Procedures Procedure Name Priority Date/Time Associated Diagnosis Comments MRI BRAIN W WO CONTRAST Routine 06/11/2008 6:18 AM CUPOLA HOIST OPERATOR MRA HEAD WO CONTRAST Routine 06/11/2008 6:11 AM CUPOLA HOIST OPERATOR POC GLUCOSE Routine 06/11/2008 5:20 AM CUPOLA HOIST OPERATOR LIPID PANEL Routine 06/11/2008 5:10 AM CUPOLA HOIST OPERATOR CT HEAD WO CONTRAST Routine 06/10/2008 8 :21 PM CUPOLA HOIST OPERATOR XR CHEST PA OR AP 1 VW Routine 06/10/2008 7:54 PM CUPOLA HOIST OPERATOR PT AND APTT Stat 06/10/2008 4:20 PM CUPOLA HOIST OPERATOR CBC WITH DIFFERENTIAL Stat 06/10/2008 4:20 PM CUPOLA HOIST OPERATOR TSH Stat 06/10/2008 4:20 PM CUPOLA HOIST OPERATOR BASIC METABOLIC PANEL Stat 06/10/2008 4:20 PM CUPOLA HOIST OPERATOR documented in this encounter Results * MRI BRAIN W WO CONTRAST (06/11/2008 6:18 AM CUPOLA HOIST OPERATOR) Anatomical Region Laterality Modality Head Other 06/11/2008 6:18 AM CUPOLA HOIST OPERATOR Narrative 06/11/2008 7:33 AM CUPOLA HOIST OPERATOR The patient has right-sided numbness and weakness, temporary. Probable TIA. No structural lesions in the brain are identified on the noncontrast T1-weighted images. The intracranial flow-voids appear normal. The posterior fossa has a normal appearance of the brainstem and cerebellum. A minimal amount of white matter signal change is present. The paranasal sinuses show moderate diffuse mucosal thickening. The skull base is otherwise unremarkable in appearance. Diffusion weighted imaging is normal. 20 mL of Magnevist contrast were given. Postcontrast images show no sites of abnormal enhancement, and a normal appearance of the meninges. No previous hemorrhage is seen. Impression: 1. No acute or old infarct or active disease is identified. 2. Moderate changes of the paranasal sinuses are noted. - Dictated By: Herman Christopher M.D. Electronically Signed By: Herman Christopher M.D. Date Signed: 06/11/08 Procedure Note Herman Christopher MD - 06/11/2008 The patient has right-sided numbness and weakness, temporary. ProbableTIA. No structural lesions in the brain are identified on the noncontrastT1-weighted images. The intracranial flow-voids appear normal. The posterior fossa has a normal appearance ofthe brainstem and cerebellum. A minimal amount of white matter signal change is present. The paranasal sinuses show moderate diffuse mucosal thickening. The skullbase is otherwise unremarkable in appearance. Diffusion weighted imaging is normal. 20 mL of Magnevist contrast were given. Postcontrast images show no sitesof abnormal enhancement, and a normal appearance of the meninges. No previous hemorrhage is seen. Impression: 1. No acute or old infarct or active disease is identified. 2. Moderate changes of the paranasal sinuses are noted. - Dictated By: Herman Christopher M.D. Electronically Signed By: Herman Christopher M.D. Date Signed: 06/11/08 Abdullahi Marin MD MR ORDERABLES Final Resul t * MRA HEAD WO CONTRAST (06/11/2008 6:11 AM CUPOLA HOIST OPERATOR) Anatomical Region Laterality Modality Head Other 06/11/2008 6:11 AM CUPOLA HOIST OPERATOR Narrative 06/12/2008 8:26 AM CUPOLA HOIST OPERATOR The patient has probable TIAs, right-sided numbness and weakness. The vertebrobasilar system appears widely patent. Major branches are unremarkable. The left vertebral artery is dominant in size. The right posterior communicating artery is demonstrated. The internal carotid siphons are widely patent. The anterior and middle cerebral arteries appear normal. Major branches are unremarkable without stenoses or irregularities or aneurysms appreciated. Impression: No apparent disease. - Dictated By: Herman Christopher M.D. Electronically Signed By: Herman Christopher M.D. Date Signed: 06/12/08 Procedure Note Herman Christopher MD - 06/12/2008 The patient has probable TIAs, right-sided numbness and weakness. The vertebrobasilar system appears widely patent. Major branches areunremarkable. The left vertebral artery is dominant in size. The right posterior communicating artery isdemonstrated. The internal carotid siphons are widely patent. The anterior and middlecerebral arteries appear normal. Major branches are unremarkable without stenoses or irregularities oraneurysms appreciated. Impression: No apparent disease. - Dictated By: Herman Christopher M.D. Electronically Signed By: Herman Christopher M.D. Date Signed: 06/12/08 Abdullahi Marin MD MR ORDERABLES Final Resul t * (ABNORMAL) POC GLUCOSE (06/11/2008 5:20 AM CUPOLA HOIST OPERATOR) GLUCOSE POC 119(H) 60 - 100 mg/dL [facility] Venous blood specimen (specimen) 06/11/2008 5:20 AM CUPOLA HOIST OPERATOR 06/12/2008 4:30 AM CUPOLA HOIST OPERATOR us Kerry Fierro MD POINT OF CARE TESTING Final Re sult Performing Organization Address [facility] Phone Number INTERFACE SYSTEM Refer to clinic/hospital department [facility] CLIA# [id number] [address] [place] [address] * (ABNORMAL) LIPID PANEL (06/11/2008 5:10 AM CUPOLA HOIST OPERATOR) [facility] TRIGLYCERIDE 102 0 - 150 mg/dL [facility] Comment: On 11/04/2007, [facility] changed the triglyceride reference range to 0-150 mg/dl. This is the recommendation of the National Cholesterol Education Program (NCEP-ATPIII). CHOLESTEROL 196 0 - 200 mg/dL [facility] Comment: On 11/04/2007 [facility] changed the cholesterol reference range to 0-200 mg/dl. This is the recommendation of the National Cholesterol Education Program (NCEP-ATPIII). LDL CALCULATED 125(H) 0 - 100 mg/dL [facility] Comment: On 11/04/2007 [facility] changed the LDL reference range to 0- 100 mg/dl. This is the recommendation of the National Cholesterol Education Program (NCEP-ATPIII). HDL 51 40 - 60 mg/dL [facility] CALCULATED TOTAL CHOLESTEROL TO HDL RATIO 3.84 3.43 - 4.97 [facility] Blood specimen (specimen) 06/11/2008 5:10 AM CUPOLA HOIST OPERATOR 06/11/2008 6:04 AM CUPOLA HOIST OPERATOR us Abdullahi Marin MD CHEMISTRY ORDERABLES Final Result Performing Organization Address City/[facility] Co de Phone Number INTERFACE SYSTEM Refer to clinic/hospital department [facility] CLIA# [id number] [address] [place] [address] * CT HEAD WO CONTRAST (06/10/2008 8:21 PM CUPOLA HOIST OPERATOR) Anatomical Region Laterality Modality Head Other 06/10/2008 8:21 PM CUPOLA HOIST OPERATOR Narrative 06/10/2008 8:[address] Scan Head without contrast 06/10/2008 History: Transient ischemic attack. Weakness. Procedure: A routine CT scan of the head without IV contrast was obtained. Findings: 1. There is mild atrophy. 2. The right basal ganglial lentiform nucleus has a lacunar infarct. 3. There is mild small vessel ischemic disease. 4. There is no intracranial hemorrhage, midline shift, ventricular enlargement, or identified acute infarct. The mastoid air cells are aerated. 5. The partially included right maxillary sinus is almost completely opacified. There is marked mucosal thickening in the left sphenoid sinus and posterior left ethmoid sinus. There is milder mucosal thickening in the rest of the paranasal sinuses. Impression: Mild atrophy. Mild small vessel ischemic disease. 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 Sinus disease. - Dictated By: Jolene Mares M.D. Electronically Signed By: Jolene Mares M.D. Date Signed: 06/10/08 Procedure Note Jolene Mares MD - 06/10/2008 Ct Scan Head without contrast 06/10/2008 History: Transient ischemic attack. Weakness. Procedure: A routine CT scan of the head without IV contrast wasobtained. Findings: 1. There is mild atrophy. 2. The right basal ganglial lentiform nucleus has a lacunar infarct. 3. There is mild small vessel ischemic disease. 4. There is no intracranial hemorrhage, midline shift, ventricularenlargement, or identified acute infarct. The mastoid air cells are aerated. 5. The partially included right maxillary sinus is almost completelyopacified. There is marked mucosal thickening in the left sphenoid sinus and posterior left ethmoid sinus.There is milder mucosal thickening in the rest of the paranasal sinuses. Impression: Mild atrophy. Mild small vessel ischemic disease. Right basalganglial lentiform nucleus old lacunar infarct. Sinus disease. - Dictated By: Jolene Mares M.D. Electronically Signed By: Jolene Mares M.D. Date Signed: 06/10/[address] ORDERABLES Final Result * XR CHEST PA OR AP (06/10/2008 7:54 PM CUPOLA HOIST OPERATOR) Anatomical Region Laterality Modality Chest Other 06/10/2008 7:54 PM CUPOLA HOIST OPERATOR Narrative 06/11/2008 9:12 AM CUPOLA HOIST OPERATOR AP Upright Chest 06/10/2008. 3 hours. History: Cough. Weakness. There is increased density of the left side of the chest which appears to be technical, due to grid cutoff. A small focal area of increased density lateral to the left cardiac margin is probably due to the left nipple shadow or focal peripheral atelectasis in the lingula, adjacent to the fat pad. A pulmonary nodule cannot be excluded. It appears larger than the right nipple shadow which is seen at approximately the same level. There is no pneumothorax, pleural fluid, or infiltrate. The heart is at the upper limits are normal in size. The aorta is mildly tortuous. There are degenerative changes in the spine. Impression: Possible nodule in the left lower lung field, lateral to the left cardiac margin. More likely this is a prominent nipple shadow or due to focal peripheral atelectasis in the lingula. Further evaluation with a repeat upright PA and lateral chest x-ray with nipple markers is suggested. If instead clinically indicated, a CT scan of the chest without IV contrast can be obtained. - Dictated By: Jolene Mares M.D. Electronically Signed By: Jolene Mares M.D. Date Signed: 06/11/08 Procedure Note Jolene Mares MD - 06/11/2008 AP Upright Chest 06/10/2008. 3 hours. History: Cough. Weakness. There is increased density of the left side of the chest which appears lorenzo technical, due to grid cutoff. A small focal area of increased density lateral to the leftcardiac margin is probably due to the left nipple shadow or focal peripheral atelectasis in the lingula,adjacent to the fat pad. A pulmonary nodule cannot be excluded. It appears larger than the right nipple shadowwhich is seen at approximately the same level. There is no pneumothorax, pleural fluid, or infiltrate.The heart is at the upper limits are normal in size. The aorta is mildly tortuous. There are degenerativechanges in the spine. Impression: Possible nodule in the left lower lung field, lateral to theleft cardiac margin. More likely this is a prominent nipple shadow or due to focal peripheral atelectasisin the lingula. Further evaluation with a repeat upright PA and lateral chest x-ray with nipplemarkers is suggested. If instead clinically indicated, a CT scan of the chest without IV contrast can beobtained. - Dictated By: Jolene Mares M.D. Electronically Signed By: Jolene Mares M.D. Date Signed: 06/11/08 Naseem Andino DO DIAGNOSTIC IMAGING ORDERABLE S Final Result * (ABNORMAL) CBC WITH DIFFERENTIAL (06/10/2008 4:20 PM CUPOLA HOIST OPERATOR) BASOPHILS ABSOLUTE 0.0 0.0 - 0.2 K/ul [facility] HEMOGLOBIN 13.9(L) 14.0 - 18.0 g/dL [facility] MONOCYTES 10.0 2.0 - 10.0 % [facility] RDW 13.5 11.0 - 14.5 % [facility] MONOCYTE ABSOLUTE 0.6 0.1 - 0.6 K/ul [facility] WBC 5.9 4.8 - 10.8 K/ul [facility] NEUTROPHILS 36.2(L) 42.2 - 75.2 % [facility] MCH 32.3 27.0 - 34.0 pg [facility] NEUTROPHIL ABSOLUTE 2.1 2.0 - 8.0 K/ul [facility] HEMATOCRIT 41.7 41.0 - 53.0 % [facility] PLATELETS 300 140 - 440 K/ul [facility] EOSINOPHIL ABSOLUTE 0.3 0.0 - 0.7 K/ul [facility] EOSINOPHILS 5.4 0.0 - 7.0 % [facility] RBC 4.31(L) 4.60 - 6.20 Mil/ul [facility] MCHC 33.3 30.0 - 35.0 g/dL [facility] LYMPHOCYTE ABSOLUTE 2.8 1.2 - 4.0 K/ul [facility] LYMPHOCYTES 48.1(H) 24.0 - 44.0 % [facility] MCV 96.8 84.0 - 103.0 Fl [facility] BASOPHILS 0.3 0.0 - 1.0 % [facility] MPV 10.3 8.9 - 12.8 Fl [facility] Blood specimen (specimen) 06/10/2008 4:20 PM CUPOLA HOIST OPERATOR 06/10/2008 7:56 PM CUPOLA HOIST OPERATOR Naseem Andino DO HEMATOLOGY ORDERABLES Final Result INTERFACE SYSTEM Refer to clinic/hospital department [facility] CLIA# [id number] [address] [place] [address] * PT AND APTT (06/10/2008 4:20 PM CUPOLA HOIST OPERATOR) INR 0.9 [facility] Comment: Expected Values for INR: DVT/PE Goal INR 2.5; range 2.0 - 3.0 Valve Replacement Tissue Goal INR 2.5; range 2.0 - 3.0 Mechanical Goal INR 3.0; range 2.5 - 3.5 POST-ME Goal INR 2.5; range 2.0 - 3.0 or Goal 3.0; range 2.5 - 3.5 Atrial Fibrillation Goal INR 2.5; range 2.0 - 3.0 Ischemic Stroke Goal INR 2.5; range 2.0 - 3.0 For additional information see Guidelines for Anticoagulation available from the pharmacy Mag[facility] Hunter [phone] PTT 29.2 22.5 - 36.5 Secs [facility] Comment: Therapeutic Range: Hi-level PE/DVT heparin protocol 80.1 -95.0 sec Lo-level PE/DVT heparin protocol 67.1 - 80.0 sec Cardiac Heparin Protocol 67.1 - 85.0 sec Neuro Heparin Protocol 67.1 - 80.0 sec As of 09/19/2007 note change in APTT Normal Range. PROTIME 13.5 12.8 - 15.8 Secs [facility] Comment:As of 2007 not e change in normal range. Blood specimen (specimen) 06/10/2008 4:20 PM CUPOLA HOIST OPERATOR 06/10/2008 7:56 PM CUPOLA HOIST OPERATOR Naseem Andino DO HEMATOLOGY ORDERABLES Edited Performing Organization Address [facility] Phone Number INTERFACE SYSTEM Refer to clinic/hospital department [facility] CLIA# [id number] [address] [place] [address] * TSH (06/10/2008 4:20 PM CUPOLA HOIST OPERATOR) [facility] TSH 2.126 0.350 - 5.500 uIU/ml [facility] Blood specimen (specimen) 06/10/2008 4:20 PM CUPOLA HOIST OPERATOR 06/10/2008 7:56 PM CUPOLA HOIST OPERATOR us Naseem Andino DO CHEMISTRY ORDERABLES Final R esult Performing Organization Address [facility] Phone Number INTERFACE SYSTEM Refer to clinic/hospital department [facility] CLIA# [id number] [address] [place] [address] * BASIC METABOLIC PANEL (06/10/2008 4:20 PM CUPOLA HOIST OPERATOR) Pathologist [facility] SODIUM 138 136 - 145 mEq/L [facility] ANION GAP 9 9 - 20 mEq/L [facility] BUN 9 9 - 20 mg/dL [facility] CO2 31 22 - 32 mmol/l [facility] OSMOLALITY, CALCULATED 282 275 - 295 mOsm/Kg [facility] POTASSIUM 3.7 3.5 - 5.0 mEq/L [facility] CREATININE 0.8 0.7 - 1.5 mg/dL [facility] CALCIUM 9.6 8.4 - 10.5 mg/dL [facility] GLUCOSE 95 70 - 110 mg/dL [facility] CHLORIDE 102 95 - 110 mEq/L [facility] Blood specimen (specimen) 06/10/2008 4:20 PM CUPOLA HOIST OPERATOR 06/10/2008 7:56 PM CUPOLA HOIST OPERATOR Naseem Andino DO CHEMISTRY ORDERABLES Final R esult INTERFACE SYSTEM Refer to clinic/hospital department [facility] CLIA# [id number] [address] [place] [address] documented in this encounter Visit Diagnoses Not on filedocumented in this encounter Additional Health Concerns Infection Onset Date Last Indicated Resolved Time R/O COVID-19 06/08/2020 06/10/2020 06/12/2020 4:45 AM CUPOLA HOIST OPERATOR documented as of this encounter Care Teams Florist Supplies Salesperson Relationship Specialty Start Date End Date Robert Mustafa MD [address] [phone] PCP - General Family Practice 02/25/16 documented as of this encounter
--- OUTSIDE RECORDS SUMMARY | 2025-01-01 10:10 | XMS_ITS ---
Author Organization Unknown TREATMENT PLAN [facility] Start Date Provider Encounter for Check-up [id number] Jared cr [facility]
--- OUTSIDE RECORDS SUMMARY | 2025-01-01 10:10 | XMS_ITS | Encounter Summary ---
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) Social History Tobacco Use Types Packs/Day Years Used Date Smoking Tobacco: Never Assessed Sex and Gender Information Value Date Recorded Sex Assigned at Not on file Legal Sex Male 4:44 AM [employer] Gender Identity Not on file Sexual Orientation Not on file documented as of this encounter Plan of Treatment Not on file documented as of this encounter Procedures Procedure Name Priority Date/Time Associated Diagnosis Comments POC GLUCOSE Routine 02/27/2006 6:13 AM CDT POC GLUCOSE Routine 02/26/2006 8:14 PM CDT POC GLUCOSE Routine 02/26/2006 5:52 PM CDT POC GLUCOSE Routine 02/26/2006 11:21 AM CDT POC GLUCOSE Routine 02/26/2006 5:15 AM CDT POC GLUCOSE Routine 02/25/2006 9:17 PM CDT POC GLUCOSE Routine 02/25/2006 5:01 PM CDT POC GLUCOSE Routine 02/25/2006 11:40 AM CDT POC GLUCOSE Routine 02/25/2006 4:53 AM CDT POC GLUCOSE Routine 02/24/2006 8:46 PM CDT POC GLUCOSE Routine 02/24/2006 5:48 PM CDT POC GLUCOSE Routine 02/24/2006 12:40 PM CDT CBC WITH DIFFERENTIAL Routine 02/24/2006 8:19 AM CDT POC GLUCOSE Routine 02/24/2006 5:26 AM CDT POC GLUCOSE Routine 02/23/2006 8:54 PM CDT POC GLUCOSE Routine 02/23/2006 4:42 PM CDT POC GLUCOSE Routine 02/23/2006 12:04 PM CDT POC GLUCOSE Routine 02/23/2006 5:25 AM CDT POC GLUCOSE Routine 02/22/2006 9:34 PM CDT POC GLUCOSE Routine 02/22/2006 6:13 PM CDT POC GLUCOSE Routine 02/22/2006 11:29 AM CDT POC GLUCOSE Routine 02/22/2006 5:40 AM CDT POC GLUCOSE Routine 02/21/2006 9:11 PM CDT POC GLUCOSE Routine 02/21/2006 4:47 PM CDT POC GLUCOSE Routine 02/21/2006 11:18 AM CDT POC GLUCOSE Routine 02/21/2006 5:53 AM CDT POC GLUCOSE Routine 02/20/2006 5:03 PM CDT POC GLUCOSE Routine 02/20/2006 11:30 AM CDT POC GLUCOSE Routine 02/20/2006 4:32 AM CDT POC GLUCOSE Routine 02/19/2006 9:23 PM CDT POC GLUCOSE Routine 02/19/2006 5:30 PM CDT POC GLUCOSE Routine 02/19/2006 11:38 AM CDT POC GLUCOSE Routine 02/19/2006 6:36 AM CDT POC GLUCOSE Routine 02/18/2006 9:57 PM CDT POC GLUCOSE Routine 02/18/2006 5:11 PM CDT POC GLUCOSE Routine 02/18/2006 11:15 AM CDT CBC WITHOUT DIFFERENTIAL Routine 02/18/2006 7:15 AM CDT POC GLUCOSE Routine 02/18/2006 5:48 AM CDT POC GLUCOSE Routine 02/17/2006 8:18 PM CDT POC GLUCOSE Routine 02/17/2006 4:49 PM CDT POC GLUCOSE Routine 02/17/2006 10:55 AM CDT POC GLUCOSE Routine 02/17/2006 6:43 AM CDT CBC WITHOUT DIFFERENTIAL Routine 02/17/2006 6:30 AM CDT BASIC METABOLIC PANEL Routine 02/17/2006 6:30 AM CDT POC GLUCOSE Routine 02/16/2006 9:53 PM CDT POC GLUCOSE Routine 02/16/2006 6:11 PM CDT POC GLUCOSE Routine 02/16/2006 2:33 PM CDT POC GLUCOSE Routine 02/16/2006 10:39 AM CDT HEMOGLOBIN AND HEMATOCRIT Routine 02/16/2006 6:50 AM CDT HEMOGLOBIN AND HEMATOCRIT Routine 02/15/2006 11:13 PM CDT HEMOGLOBIN AND HEMATOCRIT Routine 02/15/2006 5:13 PM CDT HEMOGLOBIN AND HEMATOCRIT Routine 02/15/2006 11:20 AM CDT CBC WITH DIFFERENTIAL Routine 02/15/2006 8:04 AM CDT BASIC METABOLIC PANEL Routine 02/15/2006 8:04 AM CDT HEMOGLOBIN AND HEMATOCRIT Routine 02/15/2006 12:23 AM CDT HEMOGLOBIN AND HEMATOCRIT Routine 02/14/2006 6:08 PM CDT HEMOGLOBIN AND HEMATOCRIT Routine 02/14/2006 11:55 AM CDT CBC WITH DIFFERENTIAL Routine 02/14/2006 8:21 AM CDT BASIC METABOLIC PANEL Routine 02/14/2006 8:21 AM CDT CBC WITH DIFFERENTIAL Routine 02/13/2006 10:33 PM CDT PROTIME-INR Routine 02/13/2006 10:33 PM CDT ETHANOL LEVEL Routine 02/13/2006 10:33 PM CDT BASIC METABOLIC PANEL Routine 02/13/2006 10:33 PM CDT documented in this encounter Results * (ABNORMAL) POC GLUCOSE (02/27/2006 6:13 AM CDT) GLUCOSE POC 112(H) 60 - 100 mg/dL INTERFACE SYSTEM 02/27/2006 6:13 AM CDT us Micky Gutierrez MD POINT OF CARE TESTING Fin al Result Performing Organization Address [facility] Phone Number INTERFACE SYSTEM Refer to clinic/hospital department * (ABNORMAL) POC GLUCOSE (02/26/2006 8:14 PM CDT) GLUCOSE POC 115(H) 60 - 100 mg/dL INTERFACE SYSTEM 02/26/2006 8:14 PM CDT Micky Gutierrez MD POINT OF CARE TESTING Fin al Result Performing Organization Address [facility] Phone Number INTERFACE SYSTEM Refer to clinic/hospital department * (ABNORMAL) POC GLUCOSE (02/26/2006 5:52 PM CDT) GLUCOSE POC 117(H) 60 - 100 mg/dL INTERFACE SYSTEM 02/26/2006 5:52 PM CDT Micky Gutierrez MD POINT OF CARE TESTING Fin al Result Performing Organization Address [facility] Phone Number INTERFACE SYSTEM Refer to clinic/hospital department * (ABNORMAL) POC GLUCOSE (02/26/2006 11:21 AM CDT) GLUCOSE POC 125(H) 60 - 100 mg/dL INTERFACE SYSTEM 02/26/2006 11:2 1 AM CDT us Micky Gutierrez MD POINT OF CARE TESTING Fin al Result Performing Organization Address [facility] Phone Number INTERFACE SYSTEM Refer to clinic/hospital department * (ABNORMAL) POC GLUCOSE (02/26/2006 5:15 AM CDT) GLUCOSE POC 105(H) 60 - 100 mg/dL INTERFACE SYSTEM 02/26/2006 5:15 AM CDT Micky Gutierrez MD POINT OF CARE TESTING Fin al Result Performing Organization Address [facility] de Phone Number INTERFACE SYSTEM Refer to clinic/hospital department * (ABNORMAL) POC GLUCOSE (02/25/2006 9:17 PM CDT) GLUCOSE POC 122(H) 60 - 100 mg/dL INTERFACE SYSTEM 02/25/2006 9:17 PM CDT Micky Gutierrez MD POINT OF CARE TESTING Fin al Result Performing Organization Address [facility] de Phone Number INTERFACE SYSTEM Refer to clinic/hospital department * (ABNORMAL) POC GLUCOSE (02/25/2006 5:01 PM CDT) GLUCOSE POC 144(H) 60 - 100 mg/dL INTERFACE SYSTEM 02/25/2006 5:01 PM CDT Micky Gutierrez MD POINT OF CARE TESTING Fin al Result Performing Organization Address [facility] de Phone Number INTERFACE SYSTEM Refer to clinic/hospital department * (ABNORMAL) POC GLUCOSE (02/25/2006 11:40 AM CDT) GLUCOSE POC 108(H) 60 - 100 mg/dL INTERFACE SYSTEM 02/25/2006 11:4 0 AM CDT Micky Gutierrez MD POINT OF CARE TESTING Fin al Result Performing Organization Address [facility] de Phone Number INTERFACE SYSTEM Refer to clinic/hospital department * (ABNORMAL) POC GLUCOSE (02/25/2006 4:53 AM CDT) GLUCOSE POC 104(H) 60 - 100 mg/dL INTERFACE SYSTEM 02/25/2006 4:53 AM CDT Micky Gutierrez MD POINT OF CARE TESTING Fin al Result Performing Organization Address City/[facility]/ZIP Co de Phone Number INTERFACE SYSTEM Refer to clinic/hospital department * (ABNORMAL) POC GLUCOSE (02/24/2006 8:46 PM CDT) GLUCOSE POC 125(H) 60 - 100 mg/dL INTERFACE SYSTEM 02/24/2006 8:46 PM CDT Micky Gutierrez MD POINT OF CARE TESTING Fin al Result Performing Organization Address [facility] Phone Number INTERFACE SYSTEM Refer to clinic/hospital department * (ABNORMAL) POC GLUCOSE (02/24/2006 5:48 PM CDT) GLUCOSE POC 116(H) 60 - 100 mg/dL INTERFACE SYSTEM 02/24/2006 5:48 PM CDT Micky Gutierrez MD POINT OF CARE TESTING Fin al Result Performing Organization Address [facility] Phone Number INTERFACE SYSTEM Refer to clinic/hospital department * (ABNORMAL) POC GLUCOSE (02/24/2006 12:40 PM CDT) GLUCOSE POC 105(H) 60 - 100 mg/dL INTERFACE SYSTEM 02/24/2006 12:4 0 PM CDT Micky Gutierrez MD POINT OF CARE TESTING Fin al Result Performing Organization Address [facility] Phone Number INTERFACE SYSTEM Refer to clinic/hospital department * (ABNORMAL) CBC WITH DIFFERENTIAL (02/24/2006 8:19 AM CDT) WBC 7.1 4.5 - 11.0 K/ul INTERFACE SYSTEM RBC 3.11(L) 4.60 - 6.20 Mil/ul INTERFACE SYSTEM HEMOGLOBIN 9.3(L) 14.0 - 18.0 g/dL INTERFACE SYSTEM HEMATOCRIT 30.4(L) 41.0 - 53.0 % INTERFACE SYSTEM MCV 97.7 84.0 - 103.0 Fl INTERFACE SYSTEM MCH 29.9 27.0 - 34.0 pg INTERFACE SYSTEM MCHC 30.6 30.0 - 35.0 g/dL INTERFACE SYSTEM RDW 14.9(H) 11.0 - 14.5 % INTERFACE SYSTEM PLATELETS 370 140 - 440 K/ul INTERFACE SYSTEM MPV 9.3 8.9 - 12.8 Fl INTERFACE SYSTEM NEUTROPHILS 57.9 42.2 - 75.2 % INTERFACE SYSTEM LYMPHOCYTES 34.0 24.0 - 44.0 % INTERFACE SYSTEM MONOCYTES 5.2 2.0 - 10.0 % INTERFACE SYSTEM EOSINOPHILS 2.8 0.0 - 7.0 % INTERFACE SYSTEM BASOPHILS 0.1 0.0 - 1.0 % INTERFACE SYSTEM NEUTROPHIL ABSOLUTE 4.1 2.0 - 8.0 K/uL INTERFACE SYSTEM LYMPHOCYTE ABSOLUTE 2.4 1.2 - 4.0 K/ul INTERFACE SYSTEM MONOCYTE ABSOLUTE 0.4 0.1 - 0.6 K/ul INTERFACE SYSTEM EOSINOPHIL ABSOLUTE 0.2 0.0 - 0.7 K/ul INTERFACE SYSTEM BASOPHILS ABSOLUTE 0.0 0.0 - 0.2 K/ul INTERFACE SYSTEM 02/24/2006 8:19 AM CDT Micky Gutierrez MD HEMATOLOGY ORDERABLES Fin al Result Performing Organization Address [facility] de Phone Number INTERFACE SYSTEM Refer to clinic/hospital department * (ABNORMAL) POC GLUCOSE (02/24/2006 5:26 AM CDT) GLUCOSE POC 110(H) 60 - 100 mg/dL INTERFACE SYSTEM 02/24/2006 5:26 AM CDT Micky Gutierrez MD POINT OF CARE TESTING Fin al Result Performing Organization Address [facility] de Phone Number INTERFACE SYSTEM Refer to clinic/hospital department * (ABNORMAL) POC GLUCOSE (02/23/2006 8:54 PM CDT) GLUCOSE POC 139(H) 60 - 100 mg/dL INTERFACE SYSTEM 02/23/2006 8:54 PM CDT Micky Gutierrez MD POINT OF CARE TESTING Fin al Result Performing Organization Address [facility] de Phone Number INTERFACE SYSTEM Refer to clinic/hospital department * (ABNORMAL) POC GLUCOSE (02/23/2006 4:42 PM CDT) GLUCOSE POC 127(H) 60 - 100 mg/dL INTERFACE SYSTEM 02/23/2006 4:42 PM CDT Micky Gutierrez MD POINT OF CARE TESTING Fin al Result Performing Organization Address [facility] Phone Number INTERFACE SYSTEM Refer to clinic/hospital department * (ABNORMAL) POC GLUCOSE (02/23/2006 12:04 PM CDT) GLUCOSE POC 111(H) 60 - 100 mg/dL INTERFACE SYSTEM 02/23/2006 12:0 4 PM CDT Micky Gutierrez MD POINT OF CARE TESTING Fin al Result Performing Organization Address [facility] Phone Number INTERFACE SYSTEM Refer to clinic/hospital department * (ABNORMAL) POC GLUCOSE (02/23/2006 5:25 AM CDT) GLUCOSE POC 108(H) 60 - 100 mg/dL INTERFACE SYSTEM 02/23/2006 5:25 AM CDT Micky Gutierrez MD POINT OF CARE TESTING Fin al Result Performing Organization Address [facility] Phone Number INTERFACE SYSTEM Refer to clinic/hospital department * (ABNORMAL) POC GLUCOSE (02/22/2006 9:34 PM CDT) GLUCOSE POC 116(H) 60 - 100 mg/dL INTERFACE SYSTEM 02/22/2006 9:34 PM CDT us Micky Gutierrez MD POINT OF CARE TESTING Fin al Result Performing Organization Address [facility] Phone Number INTERFACE SYSTEM Refer to clinic/hospital department * (ABNORMAL) POC GLUCOSE (02/22/2006 6:13 PM CDT) GLUCOSE POC 149(H) 60 - 100 mg/dL INTERFACE SYSTEM 02/22/2006 6:13 PM CDT Micky Gutierrez MD POINT OF CARE TESTING Fin al Result Performing Organization Address [facility] Phone Number INTERFACE SYSTEM Refer to clinic/hospital department * (ABNORMAL) POC GLUCOSE (02/22/2006 11:29 AM CDT) GLUCOSE POC 126(H) 60 - 100 mg/dL INTERFACE SYSTEM 02/22/2006 11:2 9 AM CDT Micky Gutierrez MD POINT OF CARE TESTING Fin al Result Performing Organization Address [facility] Phone Number INTERFACE SYSTEM Refer to clinic/hospital department * (ABNORMAL) POC GLUCOSE (02/22/2006 5:40 AM CDT) GLUCOSE POC 119(H) 60 - 100 mg/dL INTERFACE SYSTEM 02/22/2006 5:40 AM CDT Micky Gutierrez MD POINT OF CARE TESTING Fin al Result Performing Organization Address [facility] Phone Number INTERFACE SYSTEM Refer to clinic/hospital department * (ABNORMAL) POC GLUCOSE (02/21/2006 9:11 PM CDT) GLUCOSE POC 116(H) 60 - 100 mg/dL INTERFACE SYSTEM 02/21/2006 9:11 PM CDT Micky Gutierrez MD POINT OF CARE TESTING Fin al Result Performing Organization Address [facility] de Phone Number INTERFACE SYSTEM Refer to clinic/hospital department * (ABNORMAL) POC GLUCOSE (02/21/2006 4:47 PM CDT) GLUCOSE POC 128(H) 60 - 100 mg/dL INTERFACE SYSTEM 02/21/2006 4:47 PM CDT Micky Gutierrez MD POINT OF CARE TESTING Fin al Result Performing Organization Address [facility] de Phone Number INTERFACE SYSTEM Refer to clinic/hospital department * (ABNORMAL) POC GLUCOSE (02/21/2006 11:18 AM CDT) GLUCOSE POC 126(H) 60 - 100 mg/dL INTERFACE SYSTEM 02/21/2006 11:1 8 AM CDT Micky Gutierrez MD POINT OF CARE TESTING Fin al Result Performing Organization Address [facility] de Phone Number INTERFACE SYSTEM Refer to clinic/hospital department * POC GLUCOSE (02/21/2006 5:53 AM CDT) GLUCOSE POC 74 60 - 100 mg/dL INTERFACE SYSTEM 02/21/2006 5:53 AM CDT Micky Gutierrez MD POINT OF CARE TESTING Fin al Result Performing Organization Address [facility] Phone Number INTERFACE SYSTEM Refer to clinic/hospital department * (ABNORMAL) POC GLUCOSE (02/20/2006 5:03 PM CDT) GLUCOSE POC 120(H) 60 - 100 mg/dL INTERFACE SYSTEM 02/20/2006 5:03 PM CDT Micky Gutierrez MD POINT OF CARE TESTING Fin al Result Performing Organization Address [facility] Phone Number INTERFACE SYSTEM Refer to clinic/hospital department * (ABNORMAL) POC GLUCOSE (02/20/2006 11:30 AM CDT) GLUCOSE POC 134(H) 60 - 100 mg/dL INTERFACE SYSTEM 02/20/2006 11:3 0 AM CDT Micky Gutierrez MD POINT OF CARE TESTING Fin al Result Performing Organization Address [facility] de Phone Number INTERFACE SYSTEM Refer to clinic/hospital department * (ABNORMAL) POC GLUCOSE (02/20/2006 4:32 AM CDT) GLUCOSE POC 119(H) 60 - 100 mg/dL INTERFACE SYSTEM 02/20/2006 4:32 AM CDT Micky Gutierrez MD POINT OF CARE TESTING Fin al Result Performing Organization Address [facility] Phone Number INTERFACE SYSTEM Refer to clinic/hospital department * (ABNORMAL) POC GLUCOSE (02/19/2006 9:23 PM CDT) GLUCOSE POC 129(H) 60 - 100 mg/dL INTERFACE SYSTEM 02/19/2006 9:23 PM CDT Micky Gutierrez MD POINT OF CARE TESTING Fin al Result Performing Organization Address [facility] Phone Number INTERFACE SYSTEM Refer to clinic/hospital department * (ABNORMAL) POC GLUCOSE (02/19/2006 5:30 PM CDT) GLUCOSE POC 114(H) 60 - 100 mg/dL INTERFACE SYSTEM 02/19/2006 5:30 PM CDT Micky Gutierrez MD POINT OF CARE TESTING Fin al Result Performing Organization Address [facility] Phone Number INTERFACE SYSTEM Refer to clinic/hospital department * (ABNORMAL) POC GLUCOSE (02/19/2006 11:38 AM CDT) GLUCOSE POC 138(H) 60 - 100 mg/dL INTERFACE SYSTEM 02/19/2006 11:3 8 AM CDT Micky Gutierrez MD POINT OF CARE TESTING Fin al Result Performing Organization Address [facility] Phone Number INTERFACE SYSTEM Refer to clinic/hospital department * (ABNORMAL) POC GLUCOSE (02/19/2006 6:36 AM CDT) GLUCOSE POC 111(H) 60 - 100 mg/dL INTERFACE SYSTEM 02/19/2006 6:36 AM CDT Micky Gutierrez MD POINT OF CARE TESTING Fin al Result Performing Organization Address [facility] de Phone Number INTERFACE SYSTEM Refer to clinic/hospital department * (ABNORMAL) POC GLUCOSE (02/18/2006 9:57 PM CDT) GLUCOSE POC 110(H) 60 - 100 mg/dL INTERFACE SYSTEM 02/18/2006 9:57 PM CDT Micky Gutierrez MD POINT OF CARE TESTING Fin al Result Performing Organization Address [place]/[facility] de Phone Number INTERFACE SYSTEM Refer to clinic/hospital department * POC GLUCOSE (02/18/2006 5:11 PM CDT) GLUCOSE POC 92 60 - 100 mg/dL INTERFACE SYSTEM 02/18/2006 5:11 PM CDT Micky Gutierrez MD POINT OF CARE TESTING Fin al Result Performing Organization Address [facility] de Phone Number INTERFACE SYSTEM Refer to clinic/hospital department * (ABNORMAL) POC GLUCOSE (02/18/2006 11:15 AM CDT) GLUCOSE POC 106(H) 60 - 100 mg/dL INTERFACE SYSTEM 02/18/2006 11:1 5 AM CDT Micky Gutierrez MD POINT OF CARE TESTING Fin al Result Performing Organization Address [facility] de Phone Number INTERFACE SYSTEM Refer to clinic/hospital department * (ABNORMAL) CBC WITHOUT DIFFERENTIAL (02/18/2006 7:15 AM CDT) WBC 4.5 4.5 - 11.0 K/ul INTERFACE SYSTEM RBC 2.75(L) 4.60 - 6.20 Mil/ul INTERFACE SYSTEM HEMOGLOBIN 8.5(L) 14.0 - 18.0 g/dL INTERFACE SYSTEM HEMATOCRIT 26.2(L) 41.0 - 53.0 % INTERFACE SYSTEM MCV 95.3 84.0 - 103.0 Fl INTERFACE SYSTEM MCH 30.9 27.0 - 34.0 pg INTERFACE SYSTEM MCHC 32.4 30.0 - 35.0 g/dL INTERFACE SYSTEM RDW 15.1(H) 11.0 - 14.5 % INTERFACE SYSTEM PLATELETS 238 140 - 440 K/ul INTERFACE SYSTEM MPV 9.3 8.9 - 12.8 Fl INTERFACE SYSTEM NEUTROPHILS 44.3 42.2 - 75.2 % INTERFACE SYSTEM LYMPHOCYTES 42.3 24.0 - 44.0 % INTERFACE SYSTEM MONOCYTES 10.1(H) 2.0 - 10.0 % INTERFACE SYSTEM EOSINOPHILS 3.1 0.0 - 7.0 % INTERFACE SYSTEM BASOPHILS 0.2 0.0 - 1.0 % INTERFACE SYSTEM NEUTROPHIL ABSOLUTE 2.0 2.0 - 8.0 K/uL INTERFACE SYSTEM LYMPHOCYTE ABSOLUTE 1.9 1.2 - 4.0 K/ul INTERFACE SYSTEM MONOCYTE ABSOLUTE 0.5 0.1 - 0.6 K/ul INTERFACE SYSTEM EOSINOPHIL ABSOLUTE 0.1 0.0 - 0.7 K/ul INTERFACE SYSTEM BASOPHILS ABSOLUTE 0.0 0.0 - 0.2 K/ul INTERFACE SYSTEM 02/18/2006 7:15 AM CDT Micky Gutierrez MD HEMATOLOGY ORDERABLES Fin al Result Performing Organization Address [facility] Co de Phone Number INTERFACE SYSTEM Refer to clinic/hospital department * (ABNORMAL) POC GLUCOSE (02/18/2006 5:48 AM CDT) GLUCOSE POC 117(H) 60 - 100 mg/dL INTERFACE SYSTEM 02/18/2006 5:48 AM CDT Micky Gutierrez MD POINT OF CARE TESTING Fin al Result INTERFACE SYSTEM Refer to clinic/hospital department * POC GLUCOSE (02/17/2006 8:18 PM CDT) GLUCOSE POC 98 60 - 100 mg/dL INTERFACE SYSTEM COMMENT POC Follow Protocol INTERFACE SYSTEM 02/17/2006 8:18 PM CDT Micky Gutierrez MD POINT OF CARE TESTING Fin al Result Performing Organization Address [facility] Phone Number INTERFACE SYSTEM Refer to clinic/hospital department * (ABNORMAL) POC GLUCOSE (02/17/2006 4:49 PM CDT) GLUCOSE POC 113(H) 60 - 100 mg/dL INTERFACE SYSTEM COMMENT POC Follow Protocol INTERFACE SYSTEM 02/17/2006 4:49 PM CDT Micky Gutierrez MD POINT OF CARE TESTING Fin al Result Performing Organization Address [facility] Phone Number INTERFACE SYSTEM Refer to clinic/hospital department * (ABNORMAL) POC GLUCOSE (02/17/2006 10:55 AM CDT) GLUCOSE POC 154(H) 60 - 100 mg/dL INTERFACE SYSTEM 02/17/2006 10:5 5 AM CDT Micky Gutierrez MD POINT OF CARE TESTING Fin al Result Performing Organization Address [facility] Phone Number INTERFACE SYSTEM Refer to clinic/hospital department * (ABNORMAL) POC GLUCOSE (02/17/2006 6:43 AM CDT) GLUCOSE POC 152(H) 60 - 100 mg/dL INTERFACE SYSTEM 02/17/2006 6:43 AM CDT Micky Gutierrez MD POINT OF CARE TESTING Fin al Result Performing Organization Address [facility] Phone Number INTERFACE SYSTEM Refer to clinic/hospital department * (ABNORMAL) CBC WITHOUT DIFFERENTIAL (02/17/2006 6:30 AM CDT) WBC 4.2(L) 4.5 - 11.0 K/ul INTERFACE SYSTEM RBC 2.18(L) 4.60 - 6.20 Mil/ul INTERFACE SYSTEM HEMOGLOBIN 6.9(L) 14.0 - 18.0 g/dL INTERFACE SYSTEM HEMATOCRIT 21.3(L) 41.0 - 53.0 % INTERFACE SYSTEM MCV 97.7 84.0 - 103.0 Fl INTERFACE SYSTEM MCH 31.7 27.0 - 34.0 pg INTERFACE SYSTEM MCHC 32.4 30.0 - 35.0 g/dL INTERFACE SYSTEM RDW 13.9 11.0 - 14.5 % INTERFACE SYSTEM PLATELETS 195 140 - 440 K/ul INTERFACE SYSTEM MPV 9.7 8.9 - 12.8 Fl INTERFACE SYSTEM NEUTROPHILS 64.5 42.2 - 75.2 % INTERFACE SYSTEM LYMPHOCYTES 24.0 24.0 - 44.0 % INTERFACE SYSTEM MONOCYTES 11.3(H) 2.0 - 10.0 % INTERFACE SYSTEM EOSINOPHILS 0.2 0.0 - 7.0 % INTERFACE SYSTEM NEUTROPHIL ABSOLUTE 2.7 2.0 - 8.0 K/uL INTERFACE SYSTEM LYMPHOCYTE ABSOLUTE 1.0(L) 1.2 - 4.0 K/ul INTERFACE SYSTEM MONOCYTE ABSOLUTE 0.5 0.1 - 0.6 K/ul INTERFACE SYSTEM EOSINOPHIL ABSOLUTE 0.0 0.0 - 0.7 K/ul INTERFACE SYSTEM 02/17/2006 6:30 AM CDT Micky Gutierrez MD HEMATOLOGY ORDERABLES Fin al Result Performing Organization Address [facility] de Phone Number INTERFACE SYSTEM Refer to clinic/hospital department * (ABNORMAL) BASIC METABOLIC PANEL (02/17/2006 6:30 AM CDT) GLUCOSE 135(H) 70 - 110 mg/dL INTERFACE SYSTEM Comment:Line draw BUN 7(L) 9 - 20 mg/dL INTERFACE SYSTEM CREATININE 0.5(L) 0.7 - 1.5 mg/dL INTERFACE SYSTEM SODIUM 141 136 - 145 mEq/L INTERFACE SYSTEM POTASSIUM 4.4 3.5 - 5.0 mEq/L INTERFACE SYSTEM CHLORIDE 108 95 - 110 mEq/L INTERFACE SYSTEM CO2 28 22 - 32 mmol/l INTERFACE SYSTEM ANION GAP 9 9 - 20 mEq/L INTERFACE SYSTEM OSMOLALITY, CALCULATED 290 275 - 295 mOsm/Kg INTERFACE SYSTEM CALCIUM 8.6 8.4 - 10.5 mg/dL INTERFACE SYSTEM 02/17/2006 6:30 AM CDT Micky Gutierrez MD CHEMISTRY ORDERABLES Loraine l Result Performing Organization Address [facility] de Phone Number INTERFACE SYSTEM Refer to clinic/hospital department * (ABNORMAL) POC GLUCOSE (02/16/2006 9:53 PM CDT) GLUCOSE POC 160(H) 60 - 100 mg/dL INTERFACE SYSTEM 02/16/2006 9:53 PM CDT Micky Gutierrez MD POINT OF CARE TESTING Fin al Result Performing Organization Address [facility] Phone Number INTERFACE SYSTEM Refer to clinic/hospital department * (ABNORMAL) POC GLUCOSE (02/16/2006 6:11 PM CDT) GLUCOSE POC 184(H) 60 - 100 mg/dL INTERFACE SYSTEM 02/16/2006 6:11 PM CDT Micky Gutierrez MD POINT OF CARE TESTING Fin al Result Performing Organization Address [facility] Phone Number INTERFACE SYSTEM Refer to clinic/hospital department * (ABNORMAL) POC GLUCOSE (02/16/2006 2:33 PM CDT) GLUCOSE POC 150(H) 60 - 100 mg/dL INTERFACE SYSTEM 02/16/2006 2:33 PM CDT Micky Gutierrez MD POINT OF CARE TESTING Fin al Result Performing Organization Address [facility] Phone Number INTERFACE SYSTEM Refer to clinic/hospital department * (ABNORMAL) POC GLUCOSE (02/16/2006 10:39 AM CDT) GLUCOSE POC 120(H) 60 - 100 mg/dL INTERFACE SYSTEM 02/16/2006 10:3 9 AM CDT us Micky Gutierrez MD POINT OF CARE TESTING Fin al Result Performing Organization Address [facility] Phone Number INTERFACE SYSTEM Refer to clinic/hospital department * (ABNORMAL) HEMOGLOBIN AND HEMATOCRIT (02/16/2006 6:50 AM CDT) HEMOGLOBIN 7.3(L) 14.0 - 18.0 g/dL INTERFACE SYSTEM HEMATOCRIT 22.7(L) 41.0 - 53.0 % INTERFACE SYSTEM 02/16/2006 6:50 AM CDT Micky Gutierrez MD HEMATOLOGY ORDERABLES Fin al Result Performing Organization Address [facility] Phone Number INTERFACE SYSTEM Refer to clinic/hospital department * (ABNORMAL) HEMOGLOBIN AND HEMATOCRIT (02/15/2006 11:13 PM CDT) HEMOGLOBIN 7.5(L) 14.0 - 18.0 g/dL INTERFACE SYSTEM HEMATOCRIT 23.1(L) 41.0 - 53.0 % INTERFACE SYSTEM 02/15/2006 11:1 3 PM CDT Micky Gutierrez MD HEMATOLOGY ORDERABLES Fin al Result Performing Organization Address [facility] Phone Number INTERFACE SYSTEM Refer to clinic/hospital department * (ABNORMAL) HEMOGLOBIN AND HEMATOCRIT (02/15/2006 5:13 PM CDT) HEMOGLOBIN 8.2(L) 14.0 - 18.0 g/dL INTERFACE SYSTEM HEMATOCRIT 25.4(L) 41.0 - 53.0 % INTERFACE SYSTEM 02/15/2006 5:13 PM CDT Micky Gutierrez MD HEMATOLOGY ORDERABLES Fin al Result Performing Organization Address [facility] Phone Number INTERFACE SYSTEM Refer to clinic/hospital department * (ABNORMAL) HEMOGLOBIN AND HEMATOCRIT (02/15/2006 11:20 AM CDT) HEMOGLOBIN 8.8(L) 14.0 - 18.0 g/dL INTERFACE SYSTEM HEMATOCRIT 26.3(L) 41.0 - 53.0 % INTERFACE SYSTEM 02/15/2006 11:2 0 AM CDT Micky Gutierrez MD HEMATOLOGY ORDERABLES Fin al Result Performing Organization Address [facility] Phone Number INTERFACE SYSTEM Refer to clinic/hospital department * (ABNORMAL) CBC WITH DIFFERENTIAL (02/15/2006 8:04 AM CDT) WBC 4.8 4.5 - 11.0 K/ul INTERFACE SYSTEM RBC 2.61(L) 4.60 - 6.20 Mil/ul INTERFACE SYSTEM HEMOGLOBIN 8.2(L) 14.0 - 18.0 g/dL INTERFACE SYSTEM HEMATOCRIT 25.5(L) 41.0 - 53.0 % INTERFACE SYSTEM MCV 97.7 84.0 - 103.0 Fl INTERFACE SYSTEM MCH 31.4 27.0 - 34.0 pg INTERFACE SYSTEM MCHC 32.2 30.0 - 35.0 g/dL INTERFACE SYSTEM RDW 14.3 11.0 - 14.5 % INTERFACE SYSTEM PLATELETS 177 140 - 440 K/ul INTERFACE SYSTEM MPV 9.8 8.9 - 12.8 Fl INTERFACE SYSTEM NEUTROPHILS 54.0 42.2 - 75.2 % INTERFACE SYSTEM LYMPHOCYTES 34.5 24.0 - 44.0 % INTERFACE SYSTEM MONOCYTES 10.5(H) 2.0 - 10.0 % INTERFA CE SYSTEM EOSINOPHILS 0.8 0.0 - 7.0 % INTERF SETH SYSTEM BASOPHILS 0.2 0.0 - 1.0 % INTERFAC E SYSTEM NEUTROPHIL ABSOLUTE 2.6 2.0 - 8.0 K/uL INTERFACE SYSTEM LYMPHOCYTE ABSOLUTE 1.6 1.2 - 4.0 K/ul INTERFACE SYSTEM MONOCYTE ABSOLUTE 0.5 0.1 - 0.6 K/ul INTERFACE SYSTEM EOSINOPHIL ABSOLUTE 0.0 0.0 - 0.7 K/ul INTERFACE SYSTEM BASOPHILS ABSOLUTE 0.0 0.0 - 0.2 K/ul INTERFACE SYSTEM PERIPHERAL BLOOD SMEAR REVIEW Automated Diff Automated Diff INTERFACE SYSTEM 02/15/2006 8:04 AM CDT us Micky Gutierrez MD HEMATOLOGY ORDERABLES Fin al Result INTERFACE SYSTEM Refer to clinic/hospital department * (ABNORMAL) BASIC METABOLIC PANEL (02/15/2006 8:04 AM CDT) GLUCOSE 117(H) 70 - 110 mg/dL INTERFACE SYSTEM BUN 11 9 - 20 mg/dL INTERFACE SYSTEM CREATININE 0.6(L) 0.7 - 1.5 mg/dL INTERFACE SYSTEM SODIUM 142 136 - 145 mEq/L INTERFACE SYSTEM POTASSIUM 3.9 3.5 - 5.0 mEq/L INTERFACE SYSTEM CHLORIDE 107 95 - 110 mEq/L INTERFACE SYSTEM CO2 30 22 - 32 mmol/l INTERFACE SYSTEM ANION GAP 9 9 - 20 mEq/L INTERFACE SYSTEM OSMOLALITY, CALCULATED 292 275 - 295 mOsm/Kg INTERFACE SYSTEM CALCIUM 8.2(L) 8.4 - 10.5 mg/dL INTERFACE SYSTEM 02/15/2006 8:04 AM CDT Micky Gutierrez MD CHEMISTRY ORDERABLES Loraine l Result Performing Organization Address [facility] Phone Number INTERFACE SYSTEM Refer to clinic/hospital department * (ABNORMAL) HEMOGLOBIN AND HEMATOCRIT (02/15/2006 12:23 AM CDT) HEMOGLOBIN 9.0(L) 14.0 - 18.0 g/dL INTERFACE SYSTEM HEMATOCRIT 27.7(L) 41.0 - 53.0 % INTERFACE SYSTEM 02/15/2006 12:2 3 AM CDT Micky Gutierrez MD HEMATOLOGY ORDERABLES Fin al Result Performing Organization Address [facility] Phone Number INTERFACE SYSTEM Refer to clinic/hospital department * (ABNORMAL) HEMOGLOBIN AND HEMATOCRIT (02/14/2006 6:08 PM CDT) HEMOGLOBIN 9.6(L) 14.0 - 18.0 g/dL INTERFACE SYSTEM HEMATOCRIT 28.3(L) 41.0 - 53.0 % INTERFACE SYSTEM 02/14/2006 6:08 PM CDT Ricardo Gr DO HEMATOLOGY ORDERABLES Final Re sult Performing Organization Address [facility] Phone Number INTERFACE SYSTEM Refer to clinic/hospital department * (ABNORMAL) HEMOGLOBIN AND HEMATOCRIT (02/14/2006 11:55 AM CDT) HEMOGLOBIN 9.3(L) 14.0 - 18.0 g/dL INTERFACE SYSTEM HEMATOCRIT 27.8(L) 41.0 - 53.0 % INTERFACE SYSTEM 02/14/2006 11:5 5 AM CDT us Ricardo Gr DO HEMATOLOGY ORDERABLES Final Re sult Performing Organization Address [facility] Phone Number INTERFACE SYSTEM Refer to clinic/hospital department * (ABNORMAL) BASIC METABOLIC PANEL (02/14/2006 8:21 AM CDT) GLUCOSE 200(H) 70 - 110 mg/dL INTERFACE SYSTEM BUN 14 9 - 20 mg/dL INTERFACE SYSTEM CREATININE 0.7 0.7 - 1.5 mg/dL INTERFACE SYSTEM SODIUM 142 136 - 145 mEq/L INTERFACE SYSTEM POTASSIUM 3.9 3.5 - 5.0 mEq/L INTERFACE SYSTEM CHLORIDE 108 95 - 110 mEq/L INTERFACE SYSTEM CO2 25 22 - 32 mmol/l INTERFACE SYSTEM ANION GAP 13 9 - 20 mEq/L INTERFACE SYSTEM OSMOLALITY, CALCULATED 297(H) 275 - 295 mOsm/Kg INTERFACE SYSTEM CALCIUM 8.0(L) 8.4 - 10.5 mg/dL INTERFACE SYSTEM 02/14/2006 8:21 AM CDT Micky Gutierrez MD CHEMISTRY ORDERABLES Loraine l Result Performing Organization Address [facility] Phone Number INTERFACE SYSTEM Refer to clinic/hospital department * (ABNORMAL) CBC WITH DIFFERENTIAL (02/14/2006 8:21 AM CDT) WBC 5.8 4.5 - 11.0 K/ul INTERFACE SYSTEM RBC 3.20(L) 4.60 - 6.20 Mil/ul INTERFACE SYSTEM HEMOGLOBIN 10.0(L) 14.0 - 18.0 g/dL INTERFACE SYSTEM HEMATOCRIT 30.8(L) 41.0 - 53.0 % INTERFACE SYSTEM MCV 96.3 84.0 - 103.0 Fl INTERFACE SYSTEM MCH 31.3 27.0 - 34.0 pg INTERFACE SYSTEM MCHC 32.5 30.0 - 35.0 g/dL INTERFACE SYSTEM RDW 13.9 11.0 - 14.5 % INTERFACE SYSTEM PLATELETS 193 140 - 440 K/ul INTERFACE SYSTEM MPV 9.7 8.9 - 12.8 Fl INTERFACE SYSTEM NEUTROPHILS 84.0(H) 42.2 - 75.2 % INTERFACE SYSTEM LYMPHOCYTES 9.8(L) 24.0 - 44.0 % INTERFACE SYSTEM MONOCYTES 6.0 2.0 - 10.0 % INTERFA CE SYSTEM BASOPHILS 0.2 0.0 - 1.0 % INTERFAC E SYSTEM NEUTROPHIL ABSOLUTE 4.9 2.0 - 8.0 K/uL INTERFACE SYSTEM LYMPHOCYTE ABSOLUTE 0.6(L) 1.2 - 4.0 K/ul INTERFACE SYSTEM MONOCYTE ABSOLUTE 0.4 0.1 - 0.6 K/ul INTERFACE SYSTEM BASOPHILS ABSOLUTE 0.0 0.0 - 0.2 K/ul INTERFACE SYSTEM PERIPHERAL BLOOD SMEAR REVIEW Automated Diff Automated Diff INTERFACE SYSTEM 02/14/2006 8:21 AM CDT us Micky Gutierrez MD HEMATOLOGY ORDERABLES Fin al Result Performing Organization Address City/[facility]/ZIP Co de Phone Number INTERFACE SYSTEM Refer to clinic/hospital department * PROTIME-INR (02/13/2006 10:33 PM CDT) PROTIME 15.4 12.6 - 14.9 Secs INTERFACE SYSTEM Comment: As of 05 note change in normal range. INR 1.2 INTERFACE SYSTEM Comment: Expected Values for INR: DVT/PE Goal INR 2.5; range 2.0 - 3.0 Valve Replacement Tissue Goal INR 2.5; range 2.0 - 3.0 Mechanical Goal INR 3.0; range 2.5 - 3.5 POST-W[place] Goal INR 2.5; range 2.0 - 3.0 or Goal 3.0; range 2.5 - 3.5 Atrial Fibrillation Goal INR 2.5; range 2.0 - 3.0 Ischemic Stroke Goal INR 2.5; range 2.0 - 3.0 For additional information see Guidelines for Anticoagulation available from the pharmacy [facility]. 02/13/2006 10:3 3 PM CDT us Max Ortiz DO HEMATOLOGY ORDERABLES Edit ed Performing Organization Address City/[facility]/ZIP Co de Phone Number INTERFACE SYSTEM Refer to clinic/hospital department * (ABNORMAL) CBC WITH DIFFERENTIAL (02/13/2006 10:33 PM CDT) PERIPHERAL BLOOD SMEAR REVIEW Automated Diff Automated Diff INTERFACE SYSTEM WBC 8.0 4.5 - 11.0 K/ul INTERFACE SYSTEM RBC 4.25(L) 4.60 - 6.20 Mil/ul INTERFACE SYSTEM HEMOGLOBIN 13.4(L) 14.0 - 18.0 g/dL INTERFACE SYSTEM HEMATOCRIT 40.5(L) 41.0 - 53.0 % INTERFACE SYSTEM MCV 95.3 84.0 - 103.0 Fl INTERFACE SYSTEM MCH 31.5 27.0 - 34.0 pg INTERFACE SYSTEM MCHC 33.1 30.0 - 35.0 g/dL INTERFACE SYSTEM RDW 14.0 11.0 - 14.5 % INTERFACE SYSTEM PLATELETS 198 140 - 440 K/ul INTERFACE SYSTEM MPV 10.1 8.9 - 12.8 Fl INTERFACE SYSTEM NEUTROPHILS 80.5(H) 42.2 - 75.2 % INTERFACE SYSTEM LYMPHOCYTES 13.0(L) 24.0 - 44.0 % INTERFACE SYSTEM MONOCYTES 6.0 2.0 - 10.0 % INTERFA CE SYSTEM EOSINOPHILS 0.4 0.0 - 7.0 % INTERF SETH SYSTEM BASOPHILS 0.1 0.0 - 1.0 % INTERFAC E SYSTEM NEUTROPHIL ABSOLUTE 6.5 2.0 - 8.0 K/uL INTERFACE SYSTEM LYMPHOCYTE ABSOLUTE 1.0(L) 1.2 - 4.0 K/ul INTERFACE SYSTEM MONOCYTE ABSOLUTE 0.5 0.1 - 0.6 K/ul INTERFACE SYSTEM EOSINOPHIL ABSOLUTE 0.0 0.0 - 0.7 K/ul INTERFACE SYSTEM BASOPHILS ABSOLUTE 0.0 0.0 - 0.2 K/ul INTERFACE SYSTEM 02/13/2006 10:3 3 PM CDT Max Ortiz DO HEMATOLOGY ORDERABLES Loraine l Result INTERFACE SYSTEM Refer to clinic/hospital department * ETHANOL LEVEL (02/13/2006 10:33 PM CDT) Pathologist [facility] ETHANOL <10 <=10 mg/dL INTERFACE SYSTEM 02/13/2006 10:3 3 PM CDT us Max Ortiz DO CHEMISTRY ORDERABLES Final Result Performing Organization Address [facility] de Phone Number INTERFACE SYSTEM Refer to clinic/hospital department * (ABNORMAL) BASIC METABOLIC PANEL (02/13/2006 10:33 PM CDT) GLUCOSE 168(H) 70 - 110 mg/dL INTERFACE SYSTEM BUN 15 9 - 20 mg/dL INTERFACE SYSTEM CREATININE 0.7 0.7 - 1.5 mg/dL INTERFACE SYSTEM SODIUM 142 136 - 145 mEq/L INTERFACE SYSTEM POTASSIUM 3.5 3.5 - 5.0 mEq/L INTERFACE SYSTEM CHLORIDE 107 95 - 110 mEq/L INTERFACE SYSTEM CO2 26 22 - 32 mmol/l INTERFACE SYSTEM ANION GAP 13 9 - 20 mEq/L INTERFACE SYSTEM OSMOLALITY, CALCULATED 295 275 - 295 mOsm/Kg INTERFACE SYSTEM CALCIUM 9.3 8.4 - 10.5 mg/dL INTERFACE SYSTEM 02/13/2006 10:3 3 PM CDT Max Ortiz DO CHEMISTRY ORDERABLES Final Result Performing Organization Address [facility] Phone Number INTERFACE SYSTEM Refer to clinic/hospital department documented in this encounter Visit Diagnoses Diagnosis Open fracture of olecranon process of ulna- Primary documented in this encounter Additional Health Concerns Infection Onset Date Last Indicated Resolved Time R/O COVID-19 06/08/2020 06/10/2020 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
--- OUTSIDE RECORDS SUMMARY | 2025-01-01 10:10 | XMS_ITS | Encounter Summary ---
Author Organization [facility] Address [address] [place] [address] Care Team Providers Care Mangle Tender Name Role Phone Robert Mustafa MD Primary Care Provider [phone] Encounter Details Date Type Department Care Team (Late st Contact Info) Description 06/11/2008 Outpatient Historical [facility] [address] 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
--- OUTSIDE RECORDS SUMMARY | 2025-01-01 10:10 | XMS_ITS | Encounter Summary ---
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 Gender Identity Not on file Sexual Orientation Not on file documented as of this encounter Plan of Treatment Not on file documented as of this encounter Procedures Procedure Name Priority Date/Time Associated Diagnosis Comments T4 TOTAL Routine 01/28/2008 12:09 PM CDT documented in this encounter Results * T4 TOTAL (01/28/2008 12:09 PM CDT) T4 TOTAL 6.4 4.5 - 10.9 mcg/dl [facility] Blood specimen (specimen) 01/28/2008 12:09 PM CDT 01/28/2008 9:34 PM CDT us Jarvis De Leon DO CHEMISTRY ORDERABLES Final Resu lt [facility] CLIA# [id number] [address] [place] [address] documented in this encounter Visit Diagnoses Not on filedocumented in this encounter Additional Health Concerns Infection Onset Date Last Indicated Resolved Time R/O COVID-19 06/08/2020 06/10/2020 06/12/2020 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
--- OUTSIDE RECORDS SUMMARY | 2025-01-01 10:10 | XMS_ITS | Encounter Summary ---
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 Gender Identity Not on file Sexual Orientation Not on file documented as of this encounter Plan of Treatment Not on file documented as of this encounter Visit Diagnoses Not on filedocumented in this encounter Additional Health Concerns Infection Onset Date Last Indicated Resolved Time R/O COVID-19 06/08/2020 06/10/2020 06/12/2020 

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
--- OUTSIDE RECORDS SUMMARY | 2025-01-01 10:10 | XMS_ITS | Encounter Summary ---
Author Organization [facility] Address [address] [place] [address] Care Team Providers Care Intervention Manager Name Role Phone Robert Mustafa MD Primary Care Provider [phone] Encounter Details Date Type Department Care Team (Latest Contact Info) Description 04/09/2006 Outpatient Historical [facility] 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[employer] Gender Identity Not on file Sexual Orientation Not on file documented as of this encounter Plan of Treatment Not on file documented as of this encounter Visit Diagnoses Diagnosis Open fracture of olecranon process of ulna- Primary Closed fracture of metacarpal bone(s), site unspecified Closed fracture of unspecified part of upper end of humerus documented in this encounter Additional Health Concerns Infection Onset Date Last Indicated Resolved Time R/O COVID-19 06/08/2020 06/10/2020 06/12/2020 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
--- OUTSIDE RECORDS SUMMARY | 2025-01-01 10:10 | XMS_ITS | Encounter Summary ---
Author Organization [facility] Address [address] [place] [address] Care Team Providers Care Unix Systems Administrator Name Role Phone Robert Mustafa MD Primary Care Provider [phone] Encounter Details Date Type Department Care Team (Late st Contact Info) Description 03/09/2006 Inpatient Historical [facility] Toni Torrez MD [address] [facility] [address] [place] [address] Open Wound of Forearm, without Mention of Complication (Primary Dx) Social History Tobacco Use Types Packs/Day Years Used Date Smoking Tobacco: Never Assessed Sex and Gender Information Value Date Recorded Sex Assigned at Not on file 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 Gender Identity Not on file Sexual Orientation Not on file documented as of this encounter Plan of Treatment Not on file documented as of this encounter Procedures Procedure Name Priority Date/Time Associated Diagnosis Comments CBC WITH DIFFERENTIAL Routine 03/09/2006 5:41 AM CDT documented in this encounter Results * (ABNORMAL) CBC WITH DIFFERENTIAL (03/09/2006 5:41 AM CDT) WBC 4.9 4.5 - 11.0 K/ul INTERFACE SYSTEM RBC 3.64(L) 4.60 - 6.20 Mil/ul INTERFACE SYSTEM HEMOGLOBIN 10.9(L) 14.0 - 18.0 g/dL INTERFACE SYSTEM HEMATOCRIT 34.3(L) 41.0 - 53.0 % INTERFACE SYSTEM MCV 94.2 84.0 - 103.0 Fl INTERFACE SYSTEM MCH 29.9 27.0 - 34.0 pg INTERFACE SYSTEM MCHC 31.8 30.0 - 35.0 g/dL INTERFACE SYSTEM RDW 14.2 11.0 - 14.5 % INTERFACE SYSTEM PLATELETS 490(H) 140 - 440 K/ul INTERFACE SYSTEM MPV 9.1 8.9 - 12.8 Fl INTERFACE SYSTEM NEUTROPHILS 43.1 42.2 - 75.2 % INTERFACE SYSTEM LYMPHOCYTES 43.4 24.0 - 44.0 % INTERFACE SYSTEM MONOCYTES 9.0 2.0 - 10.0 % INTERFACE SYSTEM EOSINOPHILS 3.7 0.0 - 7.0 % INTERFACE SYSTEM BASOPHILS 0.8 0.0 - 1.0 % INTERFACE SYSTEM NEUTROPHIL ABSOLUTE 2.1 2.0 - 8.0 K/uL INTERFACE SYSTEM LYMPHOCYTE ABSOLUTE 2.1 1.2 - 4.0 K/ul INTERFACE SYSTEM MONOCYTE ABSOLUTE 0.4 0.1 - 0.6 K/ul INTERFACE SYSTEM EOSINOPHIL ABSOLUTE 0.2 0.0 - 0.7 K/ul INTERFACE SYSTEM BASOPHILS ABSOLUTE 0.0 0.0 - 0.2 K/ul INTERFACE SYSTEM 03/09/2006 5:41 AM CDT Toni Torrez MD HEMATOLOGY ORDERABLES Final Result INTERFACE SYSTEM Refer to clinic/hospital department documented in this encounter Visit Diagnoses Diagnosis Open wound of forearm, without mention of complication- Primary documented in this encounter Additional Health Concerns Infection Onset Date Last Indicated Resolved Time R/O COVID-19 06/08/2020 06/10/2020 06/12/2020 4:45 AM REGISTERED NURSE BEHAVIORAL HEALTH documented as of this encounter Care Teams Unix Systems Administrator Relationship Specialty Start Date End Date [facility] Mustafa MD [address] [facility] [address] [place] [address] PCP - General Family Practice 02/25/16 documented as of this encounter
--- OUTSIDE RECORDS SUMMARY | 2025-01-01 10:10 | XMS_ITS | Encounter Summary ---
Author Organization [facility] Address [address] [place] [address] Care Team Providers Care Retail Gift Card Merchandising Name Role Phone Robert Mustafa MD Primary Care Provider [phone] [phone] Encounter Details Date Type Department Care Team (Late st Contact Info) Description 07/15/2007 Outpatient Historical [facility] [place] [address] [address] Jarvis De Leon DO NO ADDRESS ON FILE Social History Tobacco Use Types Packs/Day Years Used Date Smoking Tobacco: Never Assessed Sex and Gender Information Value Date Recorded Sex Assigned at Not on file 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
--- NOTE | 2025-01-01 10:11 | CT_ITS ---
WS: [id number] CT ABDOMEN PELVIS TECHNIQUE: Contrast-enhanced CT of the abdomen and pelvis with coronal and sagittal reformatted images. CLINICAL INFORMATION: abdominal pain COMPARISON: None. DLP: 1401.[address] scans at [facility] use at least one of these dose optimization techniques: automated exposure control; mA and/or kV adjustment per patient size (includes targeted exams where dose is matched to clinical indication); or iterative reconstruction. FINDINGS: Small RIGHT pleural effusion with compressive atelectasis RIGHT lower lobe. Subsegmental atelectasis RIGHT middle lobe partially visualized. Cirrhotic contour to the liver. Normal size spleen. Small esophageal hiatal hernia. Diffuse fatty atrophy of the pancreas. Aortic calcification. Celiac and SMA are patent. Normal caliber abdominal aorta. Mild aortic calcification. Adrenal glands are normal. Normal renal parenchymal enhancement. No hydr onephrosis. Small fat-containing umbilical hernia. Willingham catheter. Rectosigmoid constipation with diffuse mild sigmoid wall thickening extending to the rectum suspicious for colitis. Recommend correlation for infectious or inflammatory colitis. Colon is otherwise normal in appearance. Normal appendix. Few sigmoid diverticuli. Distended fluid distended hydropic gallbladder. No evidence of gallbladder wall thickening or pericholecystic fluid. CT/CT abdomen pelvis w con* [id number] IMPRESSION: 1. Small RIGHT pleural effusion with compressive atelectasis in the RIGHT lowe r lobe. Subsegmental atelectasis in the RIGHT middle lobe. Recommend correlatio n for pneumonia. 2. Mild diffuse wall thickening with enhancement involving the sigmoid colon a nd rectum with constipation. Findings suspicious for infectious or inflammatory colitis. Recommend correlation with symptoms. 3. Fluid distended and hydropic gallbladder although no pericholecystic fluid or gallbladder wall thickening. 4. Cirrhotic configuration to the liver. 5. Normal size spleen. 6. Small esophageal hiatal hernia. 7. Willingham catheter. 8. No other acute findings.
--- OUTSIDE RECORDS SUMMARY | 2025-01-01 10:11 | XMS_ITS | Clinical Summary ---
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 QS x 3 months Sig: Monitor fasting blood sugar daily. 1 Each 10/12/19 17 Active warfarin (COUMADIN) 5 mg tabletIndications: Atrial flutter, unspecified type (CMS/HCC) TAKE 1 TABLET(5 MG) BY MOUTH DAILY 90 Tablet 2 06/05/20 19 Active Additional Information Patient taking differently: 7.5 mg DAILY, Reported on 07/14/2020 aspirin (ECOTRIN EC) 81 mg Tablet, Delayed Release (E.C.) Take 1 Tablet (81 mg) by mouth daily. 90 Tablet 1 07/21/19 21 Active metFORMIN (GLUCOPHAGE) 500 mg tabletIndications: Prediabetes Take 1 Tablet (500 mg) by mouth daily with breakfast. 90 Tablet 1 07/22/19 21 Active lisinopriL (PRINIVIL) 10 mg tabletIndications: Essential hypertension Take 1 Tablet (10 mg) by mouth daily. 90 Tablet 1 07/22/19 21 Active omeprazole (PriLOSEC) 40 mg Capsule, Delayed Release(E.C.)Indic ations:Gastroesoph ageal reflux disease, unspecified whether esophagitis present Take 1 Capsule (40 mg) by mouth daily. 30 Capsule 5 09/07/19 21 Active furosemide (Lasix) 40 mg tabletIndications: Acute on chronic diastolic heart failure (CMS/HCC) Take 1 Tablet (40 mg) by mouth 2 times daily. 60 Tablet 5 09/07/19 Active Additional Information Patient taking differently:40 mg OralDAILY, Reported on 10/28/2020 sotaloL (BETAPACE) 120 mg TabletIndications: Atrial flutter, unspecified type (CMS/HCC) TAKE 1 TABLET BY MOUTH EVERY 12 HOURS 180 Tablet 1 11/23/19 Active tamsulosin (FLOMAX) 0.4 mg capsule Take 1 Capsule (0.4 mg) by mouth daily. 90 Capsule 1 11/23/19 Active PARoxetine HCl (PAXIL) 20 mg tablet Take 1 Tablet (20 mg) by mouth daily. 90 Tablet 1 11/23/19 Active potassium chloride (KLOR-CON) 20 mEq Extended Release tablet Take 1 Tablet (20 mEq) by mouth daily. 90 Tablet 1 11/23/19 Active HYDROcodone-acetam inophen (NORCO) 10-325 mg TabletIndications: Chronic pain syndrome,Chronic right-sided low back pain with right-sided sciatica,Degenerat ion of lumbar or lumbosacral intervertebral disc Take 1 Tablet by mouth every 6 hours as needed for Pain. Dx M51.37, G89.4, Last visit 10/28/2020 Max Daily Amount: 4 Tablets 120 Tablet 12/11/19 Active Active Problems Problem Noted Date Diagnosed Date Moderate episode of recurrent major depressive d isorder 10/13/2020 Acute on chronic diastolic heart failure 021 Chronic respiratory failure with hypoxia and hyp ercapnia 09/06/2020 Typical atrial flutter 04/22/2018 [facility] prescription opiate use 12/24/2017 Psychological factor affecting physical conditio n 11/20/2017 Other specified eating disorder 11/20/2017 Prediabetes 07/04/2016 H/O gastric ulcer 03/27/2016 Chronic pain syndrome 02/25/2016 Morbid obesity with BMI of 50.0-59.9, adult 09/30 Chronic low back pain 02/12/2012 Degeneration of lumbar or lumbosacral interverte bral disc 02/12/2012 Overview (02/12/2012): S/P Lumbar Surgery: 1997 x 2, 1998 x 1 Hypertension 06/30/2008 Hyperlipidemia 05/15/2008 GERD (gastroesophageal reflux disease) 8 Sleep apnea 05/15/2008 Overview (02/12/2012): Wears nocturnal O2 Resolved Problems Problem Noted Date Diagnosed Date Resolved Date Elevated glucose 02/12/2012 01/29/2019 Overview (02/14/2012): Glucose: 146 (12/11) A1C: 5.9 (02/10) Colon cancer screening 02/12/201201/29 Overview (04/08/2012): Colonoscopy: 04/12 (no polyps) Transient cerebral ischemia 06/15/2008 03/26/2018 Immunizations Immunization Administration Dates Next Due ([employer])(12 YR UP) COVID-19 VACCINE - EMERGENCY USE AUTHORIZATION, MRNA, [id number](PF) 30 MCG/0.3 ML IM SUSP 12/02/2020,11/10/2020 ([employer])(7 YRS UP) TETANUS AND DIPHTHERIA TOXOIDS, ADSORBED (5 LF OF TETANUS TOXOID AND 2 LF OF DIPHTHERIA TOXOID), 0.5ML (PF), IM 12/24/2017 INFLUENZA VACCINE QUADRIVALE NT 3 YR UP PF IM 05/19/2019,03/26/2018,04/11/2017,2013 INFLUENZA VACCINE QUADRIVALE NT 6 MOS UP PF IM 04/26/2020 Influenza Vaccine Split 3+ Yrs IM 05/10/2011 Influenza Vaccine Split 3+ Yrs PF IM 05/05/2013, 04/15/2012 Family History Medical History Relation Name Comments Lung Cancer Father Colon Cancer Neg Hx Diabetes Neg Hx Heart Disease Neg Hx Relation Name Status Comments Father Social History Tobacco Use Types Packs/Day Years Used Date Smoking Tobacco: Former Cigarettes Smokeless Tobacco: Never Alcohol Use Standard Drinks/Week Comments Yes 0 (1 standard drink = 0.6 oz pur e alcohol) occasionally Sex and Gender Information Value Date Recorded Sex Assigned at Not on file Legal Sex 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 Gender Identity Not on file Sexual Orientation Not on file Occupation Industry Job Start Date Job End Date Not on file Not on file Not on file Not on file Not on file Not on file Not on file Not on file Last Filed Vital Signs Vital Sign Reading Time Taken Comments Blood Pressure 110/74 10/28/2020 10:15 AM CDT Pulse 57 10/28/2020 10:15 AM CDT Temperature 36.4 C (97.6 F) 10/28/2020 10:08 AM CDT Respiratory Rate 16 09/06/2020 10:4 6 AM DATA MIGRATION CONSULTANT Oxygen Saturation 98% 10/28/2020 10: 15 AM CDT 2 Liters O2 Inhaled Oxygen Concentration - - Weight 220.7 kg (486 lb 8 oz) 11:05 AM DATA MIGRATION CONSULTANT Height 193 cm (6' 4 ) 10/28/2020 10:08 AM CDT Body Mass Index 59.22 07/14/2020 11:05 AM DATA MIGRATION CONSULTANT Plan of Treatment Health Maintenance Due Date Last Done Comments DIABETES ANNUAL FOOT EXAM 1975 DIABETES ANNUAL RETINAL EXAM 1975 DIABETES MICROALBUMIN ANNUAL SCREEN 1975 PNEUMOCOCCAL VACCINE 50+ YEA RS (1 of 2 - PCV) 1976 FIT-DNA Q 3 years 2002 FIT/ DNA Q 3 YEARS (AUTO ORDER) 2002 FIT/FOBT Q 1 YEAR (AUTO ORDER) 2002 FIT/FOBT Q 1 year 2002 FLEX SIG/CT COLONOGRAPHY Q 5 YEARS (AUTO ORDER) 2002 Flex Sig/CT Colonography Q 5 years 2002 ZOSTER VACCINE (1 of 2) 2007 Traditional Medicare (ACO) A nnual Wellness Visit 11/20/2014 11/19/2013 RSV VACCINE (60+ or ) (1 - Risk 60-74 years 1-dose series) 2017 DTAP/TDAP/TD VACCINES (1 - Tdap) 12/25/2017 12/25/19 18 LDL CHOLESTEROL ANNUAL 12/16/2020 0, 10/11/2016, 02/22/2016, Additional history exists COLORECTAL CANCER SCREENING (AUTO ORDER) 04/05/2022 04/05/2012 COLORECTAL SCREENING 04/05/2022 04/05/2012 Colorectal Cancer Screening (AUTO ORDER) 04/05/2022 Colorectal Cancer Screening 04/05/2022 COVID-19 Vaccine (3 2023-2 5 season) 2024 12/02/2020, 11/10/2020 DIABETES HBA1C Q 6 MONTHS 12/28/20242023, 04/26/2020, 12/17/2019, Additional history exists INFLUENZA VACCINE (#1) 2025 0, 05/19/2019, 03/26/2018, Additional history exists Procedures Procedure Name Priority Date/Time Associated Diagnosis Comments HEMOGLOBIN A1C Routine 04/26/2020 3:31 PM CDT Prediabetes LIPID PANEL Routine 12/17/2019 11:16 AM CDT Morbid obesity with BMI of 50.0-59.9, adult ([facility]) Essential hypertension Mixed hyperlipidemia Prediabetes from Last 3 Months or Most Recently Relevant to Health Maintenance Results * (ABNORMAL) HEMOGLOBIN A1C (04/26/2020 3:31 PM CDT) HEMOGLOBIN A1C 6.6(H) See Comment % 04/26/2020 9:[address] [facility] EST. AVG GLUCOSE, A1C 143 mg/dL 04/26/2020 9:[address] [facility] Blood Collection / Unknown 04/26/2020 3:31 PM CDT 04/26/2020 8:[address] [facility] - 04/26/2020 9:25 PM CDT HGB A1C INTERPRETATION NORMAL: <5.7% PRE-DIABETES: 5.7 - 6.4% DIABETES: 6.5% OR GREATER Falsely low A1C measurements can occur when: 1. Anemia and/or hemolytic anemia is present. 2. Hemoglobin variants present. 3. Renal failure. 4. Transfusion of blood product in the last 120 days. We recommend ordering a fructosamine test([id number]) to more accurately assess glycemic status if any of the above conditions are present. us Robert Mustafa MD CHEMISTRY ORDERABLES Loraine clayton Result [facility] CLIA# [id number] [place] [address] * (ABNORMAL) LIPID PANEL (12/17/2019 11:16 AM CDT) CHOLESTEROL 176 <200 mg/dL 12/17/2019 8:[address] [facility] TRIGLYCERIDE 148 <150 mg/dL 12/17/2019 8:[address] [facility] HDL 46 40 - 59 mg/dL 12/17/2019 8:[address] [facility] LDL CALCULATED 100(H) <100 mg/dL 12/17/2019 8:[address] [facility] NON-HDL CHOLESTEROL 130(H) <130 mg/dL 12/17/2019 8:[address] [facility] Blood Collection / Unknown 12/17/2019 11:16 AM CDT 12/17/2019 7:[address] [facility] - 12/17/2019 8:29 PM CDT TOTAL CHOLESTEROL mg/dL Desirable <200 Borderline high 200-239 High >=240 TRIGLYCERIDES mg/dL Normal <150 Borderline high 150-199 High 200-499 Very high >=500 HDL CHOLESTEROL mg/dL Low <40 Normal 40-59 Desirable >=60 NON HDL CHOLESTEROL mg/dL Optimal <130 Near Optimal 130-159 Borderline High 160-189 Very High >=190 CALCULATED LDL mg/dL LDL <70, OPTIMAL if have Atherosclerotic cardiovascular disease (ASCVD) or intermediate or higher (>7.5%) 10 year risk of ASCVD including most adults with diabetes. LDL <100, Optimal in adult patients with low (<7.5%) 10 year ASCVD risk LDL 100-160, Suboptimal LDL >160, High LDL >190, Very high ATPIII Guidelines Reference Ranges for Lipid Panels (NCEP/AMA) . Robert Mustafa MD CHEMISTRY ORDERABLES Loraine clayton Result [facility] CLIA# [id number] [place] [address] from Last 3 Months or Most Recently Relevant to Health Maintenance Insurance MEDICARE PART A AND B MEDICARE PART A AND B Advance Directives For more information, please contact: [phone] * Full Code (Latest Code Status on File) Date Activated Date Inactivated Comments 04/22/2018 2:55 PM 04/26/2018 2:11 PM * Full Code Date Activated Date Inactivated Comments 04/22/2018 10:07 AM 04/22/2018 2:55 PM * Full Code Date Activated Date Inactivated Comments 02/05/2015 11:13 AM 02/07/2015 6:17 PM * Full Code Date Activated Date Inactivated Comments 02/05/2015 5:43 AM 02/05/2015 11:13 AM Care Teams Vacuum Drum Drier Operator Relationship Specialty Start Date End Date Robert Mustafa MD [address] [phone] PCP - General Family Practice 02/25/16
--- OUTSIDE RECORDS SUMMARY | 2025-01-01 10:11 | XMS_ITS | Clinical Summary ---
Author Organization [facility] Address [address] [place] [address] Care Team Providers Care Booking Clerk Name Role Phone Robert Mustafa MD Primary Care Provider [phone] Allergies Active Allergy Reactions Criticality Noted Date Comments Adhesive Hives High 02/05/2015 Patient states that he gets blisters from steri tapes Medications ventilator non-invasiveIndicat ions:Chronic respiratory failure with hypoxia and hypercapnia (CMS/HCC),Obesity hypoventilation syndrome (CMS/HCC),Obstructi ve sleep apnea syndrome Non invasive vent for home use. Use daily with all sleep periods and as needed. Settings: Auto-titrate Length of Need: 99 months 1 Each 06/02/20 22 Active Additional Information Patient not taking.Reported on 11/25/2024 naloxone (NARCAN) 4 mg/spray Rush, Non-Aerosol EMERGENCY USE ONLY: Administer 1 spray (4 mg) in one nostril one time. May repeat in alternating nostrils every 2-3 min until responsive or EMS arrives. 2 Each 3 07/28/19 23 Active Additional Information Patient not taking.Reported on 11/25/2024 shower chair DME EQUIPMENTIndication s:Morbid obesity with BMI of 60.0-69.9, adult (CMS/HCC),Chronic diastolic heart failure (CMS/HCC),Chronic respiratory failure with hypoxia and hypercapnia (CMS/HCC),Limitatio n of activities due to disability Patient weights 465lbs 1 Each 10/16/19 23 Active polyethylene glycol (MIRALAX) 17 gram Powder in Packet Take 1 Packet (17 Grams) by mouth 1 time daily as needed for Constipation. 30 Each 2 02/22/20 23 Active Additional Information Patient not taking.Reported on 11/25/2024 portable oxygenIndications:C hronic respiratory failure with hypoxia and hypercapnia (CMS/HCC) Face to Face completed within 30 days: yes Length of Need: 99 months Inogen 1 Each 11/28/19 24 Active triamcinolone acetonide (KENALOG) 0.1 % Cream Apply to affected area 2 times daily. 454 Gram 1 05/15/20 24 Active Additional Information Patient not taking.Reported on 11/25/2024 dextromethorphan-gu aiFENesin (MUCINEX DM) 30-600 mg Tablet Sustained Release 12HR Take 1 Tablet by mouth every 12 hours. Active warfarin (COUMADIN) 5 mg tabletIndications:P aroxysmal atrial fibrillation (CMS/HCC) 5 mg Sunday, Sunday, and Sunday. 2.5 mg Sunday, , Sunday and Sunday 90 Tablet 08/13/19 25 Active nystatin (Nystop) 100,000 unit/gram powderIndications:C andidal intertrigo Apply to affected area 2 times daily. 60 Gram 11 08/13/19 Active Additional Information Patient not taking.Reported on 11/25/2024 albuterol sulfate HFA 90 mcg/actuation aerosol inhalerIndications: Obesity hypoventilation syndrome (CMS/HCC) Take 2 Puffs by inhalation every 6 hours as needed for Shortness of Breath. 18 Gram 08/13/19 25 Active folic acid (FOLVITE) 1 mg tabletIndications:O ther cirrhosis of liver (CMS/HCC),Acute blood loss anemia Take 1 Tablet (1 mg) by mouth daily. 90 Tablet 08/13/19 25 Active dapagliflozin propanediol (Farxiga) 10 mg TabletIndications:C hronic diastolic heart failure (CMS/HCC),Type 2 diabetes mellitus with other circulatory complication, without long-term current use of insulin (CMS/HCC) Take 1 Tablet (10 mg) by mouth daily in the morning. 100 Tablet 08/13/19 25 Active Additional Information Patient not taking.Reported on 11/25/2024 lisinopriL (PRINIVIL) 2.5 mg tabletIndications:C hronic diastolic heart failure (CMS/HCC),Type 2 diabetes mellitus with other circulatory complication, without long-term current use of insulin (CMS/HCC),Essential hypertension Take 1 Tablet (2.5 mg) by mouth daily. 100 Tablet 08/13/19 25 Active ferrous sulfate 325 mg (65 mg iron) tabletIndications:A cute blood loss anemia Take 1 Tablet (325 mg) by mouth every other day. 45 Tablet 08/13/19 25 Active Additional Information Patient not taking.Reported on 11/25/2024 pantoprazole (PROTONIX) 40 mg Tablet, Delayed Release (E.C.)Indications:H /O gastric ulcer,Gunn's esophagus without dysplasia Take 1 Tablet (40 mg) by mouth 2 times daily. 180 Tablet 08/13/19 25 Active buPROPion HCL (WELLBUTRIN SR) 150 mg Sustained Release 12 hour tabletIndications:M oderate episode of recurrent major depressive disorder (CMS/HCC) Take 1 Tablet (150 mg) by mouth 2 times daily. 180 Tablet 08/13/19 25 Active Additional Information Patient not taking.Reported on 11/25/2024 spironolactone (ALDACTONE) 25 mg tabletIndications:C hronic diastolic heart failure (CMS/HCC) Take 1 Tablet (25 mg) by mouth daily. 90 Tablet 08/13/19 25 Active sotaloL (BETAPACE) 120 mg TabletIndications:P aroxysmal atrial fibrillation (CMS/HCC),Chronic diastolic heart failure (CMS/HCC) Take 0.5 Tablets (60 mg) by mouth every 12 hours. 100 Tablet 08/13/19 25 Active PARoxetine HCl (PAXIL) 30 mg tabletIndications:M oderate episode of recurrent major depressive disorder (CMS/HCC) Take 2 Tablets (60 mg) by mouth daily. 200 Tablet 08/13/19 25 Active benzonatate (TESSALON) 100 mg capsuleIndications: Influenza Take 1 Capsule (100 mg) by mouth 3 times daily as needed for Cough. 30 Capsule 2 08/13/19 25 Active Additional Information Patient not taking.Reported on 11/25/2024 bumetanide (BUMEX) 0.5 mg tabletIndications:C hronic diastolic heart failure (CMS/HCC) Take 1 Tablet (0.5 mg) by mouth daily. 90 Tablet 08/13/19 25 Active Miscellaneous Medical Supply Please discontinue home ventilator due to nonuse 1 Each 08/14/19 Active Additional Information Patient not taking.Reported on 11/25/2024 metOLazone (ZAROXOLYN) 5 mg tabletIndications:L remedios term current use of diuretic Take 1 Tablet (5 mg) by mouth every 7 days. On Fridays with KLOR-CON 20mEq. 12 Tablet 3 08/19/19 25 Active potassium BICARBONATE-citric acid (EFFER-K) 10 mEq Tablet, Effervescent 20 mEq 2 times daily. Active tamsulosin (FLOMAX) 0.4 mg capsule Take 0.4 mg by mouth daily. Active folic acid (FOLVITE) 1 mg tablet Take 1 mg by mouth daily. Active HYDROcodone-acetami nophen (NORCO) 7.5-325 mg TabletIndications:P ressure injury of ankle, stage 4, unspecified laterality (CMS/HCC) Take 1 Tablet by mouth every 4 hours as needed for Pain, Moderate. Replaces oxycodone/fenta nyl Max Daily Amount: 6 Tablets 42 Tablet 11/26/19 25 Active doxycycline hyclate (VIBRAMYCIN) 100 mg tablet Take 1 Tablet (100 mg) by mouth 2 times daily for 14 days. 28 Tablet 11/26/19 25 025 Active Problems Problem Noted Date Diagnosed Date Hospice care patient 10/15/2024 Gunn's esophagus 08/13/2024 Candidal intertrigo 08/13/2024 Acute blood loss anemia 07/09/2024 Recurrent right pleural effusion 07/03/2024 Other cirrhosis of liver 07/03/2024 GIB (gastrointestinal bleeding) 06/29/2024 Coffee ground emesis 06/29/2024 Hematochezia 06/29/2024 Hematemesis 06/28/2024 Osteoarthritis of lumbar spine with myelopathy 1 Myopathy 07/20/2022 Adjustment disorder 03/15/2022 Urinary retention 01/25/2022 HFpEF MCM: Heart Failure Management Team 022 Overview (12/15/2021): Target weight range: 470-480 as of 12/15/2021 Wt Readings from Last 3 Encounters: 12/15/21 (!) 211.5 kg (466 lb 3.2 oz) 12/09/21 123.4 kg (272 lb) 12/08/21 (!) 215 kg (474 lb) Device therapy: none Lowest LVEF & other structural issues: LVEF>40 (HFpEF) Assessment & Plan (12/15/2021 12:04 PM CDT): HPI 12/15/2021: Called patient for routine AP follow up via telephone. Patient reports he was able to do more physical activity yesterday than he has in the past 1.5 years. Feels really good and very happy about his recent progress. Has become less dependent on his walker....still has the walker when ambulating but is able to brace himself less. Reports his breathing and swelling are better than usual. Constipation has resolved since decreasing his pain meds, says his pain level is about the same. Wounds are improving with current wound regimen. No lightheadedness, dizziness, heart racing, palpitations, chest pain, abdominal pain, N/V/D, melena, hematochezia, concerns, recent falls. Said he was told he needs to increase compliance with his BiPAP to keep it and plans to manually track his hours. Wt (!) 211.5 kg (466 lb 3.2 oz) BMI 56.75 kg/m Wt Readings from Last 3 Encounters: 12/15/21 (!) 211.5 kg (466 lb 3.2 oz) 12/09/21 123.4 kg (272 lb) 12/08/21 (!) 215 kg (474 lb) 90-day vital sign averages: Weight: 466.2 pounds Blood pressure: 129/73 Heart rate: 81 bpm HFpEF Chronic Compensated Current plan Notes Most recent TTE 09/14/21: Mild LVH, LVEF 55-60%, LV DD, RVSP 60mm Hg, Bi-atrial enlargement, mild to moderate MR, mild TR/WV SGLT2-I (2a rec) Consider starting sglt2 inhibitor for CHF MRA (2b rec) spironolactone (ALDACTONE) 25 mg tablet [[id number]] 25 mg daily ARNI or ARB (2b) lisinopriL (PRINIVIL) 2.5 mg tablet [[id number]] Diuretic as needed (class 1 rec) furosemide (LASIX) 80 mg tablet [[id number]], spironolactone (ALDACTONE) 25 mg tablet [[id number]] Lasix 80 mg daily Advance Care Planning & code status no CPR, no intubation Plan: No changes in POC. Contingency plan: If weight gain of 3lbs in 24h or if up 5lbs overall, consider increasing lasix from 80mg daily to 80mg BID x3 days. GILL Rincon Assessment & Plan (12/05/2021 3:12 PM CDT): HPI 12/05/2021: Pt reports doing well today. Weight trending down since last check in. He denies worsening SB, orthopnea, coughing, swelling, chest pain or pressure. Admits he did take an additional Lasix 40 mg on his own one time last week. States he took as he felt he was having urinary retention. States since taking additional Lasix his urine output has returned back to normal. He denies dysuria, hematuria, fevers/chills, flank pain, abnormal odor to urine. He describes urine as clear. Will discuss further with LETHA Pfeiffer. Pt is due for CMP. Reached out to pt's HHRN to confirm visit tomorrow and to request CMP. ROS otherwise negative. Wt (!) 213.9 kg (471 lb 8 oz) BMI 57.39 kg/m Wt Readings from Last 3 Encounters: 12/05/21 (!) 213.9 kg (471 lb 8 oz) 11/25/21 (!) 216.2 kg (476 lb 9.6 oz) 11/21/21 (!) 214.1 kg (472 lb 1.6 oz) HFpEF Current plan Notes SGLT2-I (2a rec) MRA (2b rec) spironolactone (ALDACTONE) 25 mg tablet [[id number]] ARNI or ARB (2b) lisinopriL (PRINIVIL) 2.5 mg tablet [[id number]] Diuretic as needed (class 1 rec) furosemide (LASIX) 80 mg tablet [[id number]], spironolactone (ALDACTONE) 25 mg tablet [[id number]] Advance Care Planning & code status Plan per LETHA Pfeiffer: -Continue to follow 2 g sodium restriction daily and 64 oz fluid restriction daily. -Continue daily dry weights. -Obtain CMP by HHRN. -Follow up with PCP office for 12/09. Cadence Castaneda RN Assessment & Plan (11/25/2021 1:42 PM CDT): HPI 11/25/2021: Called pt d/t incomplete VS. Discussed importance of weighing daily. Pt reports weight today as 476 lbs. Weight trending up 4 lbs in 4 days. Nhan denies increase SOB, orthopnea, coughing, swelling, chest pain or pressure. He denies missing Lasix. He has been taking Lasix 80 mg daily this week as he was previously taking Lasix 80 mg BID until weight was below 30 day average (approximately 476 lbs). Completed 24 hour diet recall with Nhan. He reports eating fruit and a slice of pizza. Denies exceeding daily fluid restriction of 64 oz. Reviewed with Nhan to follow 2 g sodium restriction daily and 64 oz fluid restriction daily. Nhan admits he will eat in the middle of the night and then weigh shortly after in the AM. Reviewed proper weighing technique. Will discuss further with LETHA Lowery. Wt (!) 216.2 kg (476 lb 9.6 oz) BMI 58.01 kg/m Wt Readings from Last 3 Encounters: 11/25/21 (!) 216.2 kg (476 lb 9.6 oz) 11/21/21 (!) 214.1 kg (472 lb 1.6 oz) 11/17/21 (!) 220.7 kg (486 lb 9.6 oz) HFpEF Current plan Notes SGLT2-I (2a rec) MRA (2b rec) spironolactone (ALDACTONE) 25 mg tablet [[id number]] ARNI or ARB (2b) lisinopriL (PRINIVIL) 2.5 mg tablet [[id number]] Diuretic as needed (class 1 rec) furosemide (LASIX) 80 mg tablet [[id number]], spironolactone (ALDACTONE) 25 mg tablet [[id number]] Advance Care Planning & code status Plan per LETHA Lowery: -Increase Lasix to 80 mg BID for today only. -Continue to follow 2 g sodium restriction daily and 64 oz fluid restriction daily. -Continue daily dry weights. Cadence Nannini, actuary clerk & Plan (11/21/2021 2:48 PM CDT): HPI 11/21/2021: Weight trending down. Weight below 30 day average. Pt confirms he has been taking Lasix 80 mg BID. He denies increase SOB, orthopnea, coughing, swelling. Will discuss further with LETHA Pfeiffer. He c/o constipation. Pt taking Colace daily. He admits to only drinking approximately 30 oz of fluids each day. Pt also takes [place] PRN. C/o having to strain causing him to have CP over the weekend. Reports CP resolved within 5 min on its own. CP was located across front of chest. Describes as a squeezing and rates it as a 7 out of 10 on pain scale. Denies any other symptoms associated with CP. In regards to constipation, Nhan does report having small, hard BMs. He denies N/V, abd pain, black/tarry stool or blood in stool. He denies using Mrialax as previously advised. ROS otherwise negative. Wt (!) 214.1 kg (472 lb 1.6 oz) BMI 57.47 kg/m Wt Readings from Last 3 Encounters: 11/21/21 (!) 214.1 kg (472 lb 1.6 oz) 11/17/21 (!) 220.7 kg (486 lb 9.6 oz) 11/14/21 (!) 219.1 kg (483 lb) HFpEF Current plan Notes SGLT2-I (2a rec) MRA (2b rec) spironolactone (ALDACTONE) 25 mg tablet [[id number]] ARNI or ARB (2b) lisinopriL (PRINIVIL) 2.5 mg tablet [[id number]] Diuretic as needed (class 1 rec) furosemide (LASIX) 80 mg tablet [[id number]], spironolactone (ALDACTONE) 25 mg tablet [[id number]] Advance Care Planning & code status Plan per LETHA Pfeiffer: -Return to Lasix 80 mg daily. -Continue to follow 2 g sodium restriction daily and 64 oz fluid restriction daily. -Continue daily dry weights. -Continue Cloace daily. -Start Miralax 1 capful daily. -Increase fluids to 60-64 oz daily. -Follow up with cards. Cadence Nannini, actuary clerk & Plan (11/14/2021 3:30 PM CDT): HPI 11/14/2021: Reports doing well over all. Denies increase SOB, orthopnea, coughing, chest pain or pressure. Pt's brother reports BLE still appear to be slightly swollen. He confirms swelling is improved compared to yesterday. He is to continue Lasix 80 mg BID until weight less than 30 day average (476 lbs) as advised per LETHA Pfeiffer. ROS otherwise negative. Wt (!) 219.1 kg (483 lb) BMI 58.79 kg/m Wt Readings from Last 3 Encounters: 11/14/21 (!) 219.1 kg (483 lb) 11/10/21 (!) 218.6 kg (482 lb) 10/24/21 (!) 214.3 kg (472 lb 6.4 oz) HFpEF Current plan Notes SGLT2-I (2a rec) MRA (2b rec) spironolactone (ALDACTONE) 25 mg tablet [[id number]] ARNI or ARB (2b) lisinopriL (PRINIVIL) 2.5 mg tablet [[id number]] Diuretic as needed (class 1 rec) furosemide (LASIX) 80 mg tablet [[id number]], spironolactone (ALDACTONE) 25 mg tablet [[id number]] Advance Care Planning & code status Plan per LETHA Pfeiffer: -Continue Lasix 80 mg BID until weight less than 476 lbs. -Continue to follow 2 g sodium restriction daily and 64 oz fluid restriction daily. -Continue daily dry weights. Contingency plan per LETHA Pfeiffer: Consider use of metolazone if he fails to respond to increased Lasix. Cadence Castaneda RN Assessment & Plan (11/10/2021 12:54 PM CDT): HPI 11/10/2021: Called patient regarding missing vital signs. Patient answered and apparently I woke him up after unknowingly falling asleep on the toilet. Requested vital signs with the assistance of his brother. Noted to have weight gain of 6 pounds since November 04, and 13.8 pounds since October 27. Spoke with patient's brother regarding weight gain concerns. He notes that patient normally sleeps a lot but it is somewhat unusual for him to be falling asleep like he has been today. Says patient did not sleep well at all last night, seemed to want assistance getting up every 10 minutes after falling asleep. Patient's brother notes that he almost called the ambulance last night due to patient not being able to sleep well and that is unusual for the patient. Patient's brother confirms the patient has been wearing his PAP at night. Denies that the patient has complained of any worsening shortness of breath or had any noticeable changes in his respiratory status. Denies notable coughing, wheezing, worsening swelling, fevers, nausea, vomiting, diarrhea, hematuria, cloudy urine. Does note that urine may be a bit darker than usual. Denies that patient has complained of chest pain, belly pain, or dysuria. Notes that patient has an abdominal wound currently covered with gauze and Neosporin that is staying the same. Denies any recent falls. Is scheduled to have home health nurse visit patient tomorrow. Patient's brother does note that he thinks Nhan missed medications 1 day recently. Also notes that patient recently ate barbecue ribs. BP 121/58 Pulse 61 Wt (!) 218.6 kg (482 lb) SpO2 95% BMI 58.67 kg/m Wt Readings from Last 3 Encounters: 11/10/21 (!) 218.6 kg (482 lb) 10/24/21 (!) 214.3 kg (472 lb 6.4 oz) 10/17/21 (!) 214.1 kg (472 lb) 14-day vital sign averages: Weight: 475.6 pounds Blood pressure: 128/71 Heart rate: 76 bpm HFpEF Current plan Notes SGLT2-I (2a rec) Consider starting sglt2 inhibitor for CHF MRA (2b rec) spironolactone (ALDACTONE) 25 mg tablet [[id number]] 25 mg daily ARNI or ARB (2b) lisinopriL (PRINIVIL) 2.5 mg tablet [[id number]] Diuretic as needed (class 1 rec) furosemide (LASIX) 80 mg tablet [[id number]], spironolactone (ALDACTONE) 25 mg tablet [[id number]] Lasix 80 mg daily Advance Care Planning & code status no CPR, no intubation Medication compliance: probably noncompliance though I cannot elicit that specific history Dietary compliance: probably noncompliance though I cannot elicit that specific history Plan: Instructed patient's brother to increase patient's furosemide from 80 mg daily to 80 mg twice daily for 3 days starting today. We will fax orders for CBC with differential, CMP, urinalysis with reflex micro, and urine culture to home health nurse to be obtained during home health visit tomorrow. Encouraged patient's brother to call with any questions, concerns, new or worsening symptoms. Contingency plan: Consider use of metolazone if he fails to respond to increased Lasix. GILL Rincon Assessment & Plan (11/07/2021 3:23 PM CDT): HPI 11/07/2021:Reports doing well over all today. States this AM when exerting himself he had to turn his supplemental oxygen to 5-6 L from baseline of 4 L as he was more SOB and had some lightheadedness. Denies WATKINS being worse than baseline. Confirms SOB and lightheadedness resolved with rest and was able to return to 4 L. Denies orthopnea, increase coughing, wheezing, swelling, chest pain or pressure. Pt admits he did not weigh today. Encouraged pt to obtain daily dry weights. ROS otherwise negative. There were no vitals taken for this visit. Wt Readings from Last 3 Encounters: 10/24/21 (!) 214.3 kg (472 lb 6.4 oz) 10/17/21 (!) 214.1 kg (472 lb) 10/10/21 (!) 219.1 kg (483 lb) HFpEF Current plan Notes SGLT2-I (2a rec) MRA (2b rec) spironolactone (ALDACTONE) 25 mg tablet [[id number]] ARNI or ARB (2b) lisinopriL (PRINIVIL) 2.5 mg tablet [[id number]] Diuretic as needed (class 1 rec) furosemide (LASIX) 80 mg tablet [[id number]], spironolactone (ALDACTONE) 25 mg tablet [[id number]] Advance Care Planning & code status Plan per GATHERING WORKER Kentrell: -Obtain daily dry weights. -Continues to try to follow 2 g sodium restriction daily and 64 oz fluid restriction daily. Contingency plan per GATHERING WORKER Pfeiffer: If worsening swelling or breathing, consider increasing lasix from 80mg daily to 80mg BID x3 days and KCL from 20mEq daily to 20mEq BID x3 days Cadence Castaneda RN Assessment & Plan (10/24/2021 3:35 PM CDT): HPI 10/24/2021: Weight trending down almost 3 lbs since advised to take additional lasix on 10/22. Today pt should have returned to Lasix 80 mg daily. He does believes swelling did improve with additional Lasix. He denies increase SOB, orthopnea, coughing, chest pain or pressure. He does c/o constipation. He states last BM was approximately 5 days ago. Confirms passing gas. Denies N/V, abd pain. Reports he has been drinking prune juice. Advised that pt mat try Miralax once daily. ROS otherwise negative. Wt (!) 214.3 kg (472 lb 6.4 oz) BMI 57.50 kg/m Wt Readings from Last 3 Encounters: 10/24/21 (!) 214.3 kg (472 lb 6.4 oz) 10/17/21 (!) 214.1 kg (472 lb) 10/10/21 (!) 219.1 kg (483 lb) HFpEF & HFmrEF Current plan Notes SGLT2-I (2a rec) Consider starting sglt2 inhibitor for CHF MRA (2b rec) spironolactone (ALDACTONE) 25 mg tablet [[id number]] ARNI (2b rec) lisinopriL (PRINIVIL) 2.5 mg tablet [[id number]] Diuretic furosemide (LASIX) 80 mg tablet [[id number]], spironolactone (ALDACTONE) 25 mg tablet [[id number]] ACP & code status Plan per GATHERING WORKER Kentrell: -Continue daily weights. -Complete set up of biometric equipment tomorrow as scheduled. -Follow 2 g sodium restriction daily. -May try Miralax PRN for constipation. Contingency plan: If worsening swelling or breathing, consider increasing lasix from 80mg daily to 80mg BID x3 days and KCL from 20mEq daily to 20mEq BID x3 days Cadence Castaneda RN Assessment & Plan (10/18/2021 2:28 PM CDT): Brief HPI 10/18/2021: He denies worsening SOB, orthopnea, coughing, swelling, chest pain or pressure. Pt did not weigh today d/t fall. BP 134/82 Wt (!) 214.1 kg (472 lb) BMI 57.45 kg/m Wt Readings from Last 3 Encounters: 10/17/21 (!) 214.1 kg (472 lb) 10/10/21 (!) 219.1 kg (483 lb) 10/05/21 (!) 180 kg (396 lb 12.8 oz) HFpEF & HFmrEF Current plan Notes SGLT2-I (2a rec) Consider starting sglt2 inhibitor for CHF MRA (2b rec) spironolactone (ALDACTONE) 25 mg tablet [[id number]] ARNI (2b rec) lisinopriL (PRINIVIL) 2.5 mg tablet [[id number]] Diuretic furosemide (LASIX) 80 mg tablet [[id number]], spironolactone (ALDACTONE) 25 mg tablet [[id number]] ACP & code status Medication compliance: compliant Dietary compliance: Not assessed today. Plan per GATHERING WORKER Pfeiffer: -Continue daily weights if steady. -Continue to try to follow 2 g sodium restriction daily and 64 oz fluid restriction daily. Future considerations: 1. Addition of SGLT2-I-->might be contraindicated d/t yeast in groin 2. vDietician and vPT Contingency plan: If worsening swelling or breathing, consider increasing lasix from 80mg daily to 80mg BID x3 days and KCL from 20mEq daily to 20mEq BID x3 days Cadence Castaneda RN Assessment & Plan (10/10/2021 2:34 PM CDT): Stable. Continue current POC. Obtain repeat labs. Assessment & Plan (10/05/2021 4:15 PM CDT): BP (!) 148/82 Pulse 71 Wt (!) 180 kg (396 lb 12.8 oz) SpO2 97% BMI 48.30 kg/m Brief HPI 10/05/2021: Reports doing well over all today. Admits he sleeps a lot. Pt's brother denies this being new. He denies worsening SOB, coughing, orthopnea, swelling, chest pain or chest pressure. HFpEF/HFmrEF Checklist Most recent TTE 09/14/21: Mild LVH, LVEF 55-60%, LV DD, RVSP 60mm Hg, Bi-atrial enlargement, mild to moderate MR, mild TR/WV HR control rating: Fair. 14 day average HR 78 bpm. Afib: Yes. Sotalol 60mg BID, Coumadin (INR 1.7 on 09/17/21) PPM present: Yes/No BP control rating: Fair 14 day average BP: 135/76 Antihypertensives: Lisinopril 2.5mg daily, Lasix 80mg daily CKD: No Cr Stable?:Yes Liver cirrhosis: Possibly Supporting documentation:CT Chest 09/13/21: lobulated hepatic contour which may reflect cirrhosis SGLT2-I: No: Consider adding in the near future Dietary compliance: Fair. States he does not use table salt. Reports doing well with daily fluid restriction. Medication compliance: excellent Wt Readings from Last 3 Encounters: 10/05/21 (!) 180 kg (396 lb 12.8 oz) 09/14/21 (!) 241.3 kg (531 lb 14.4 oz) 05/04/21 (!) 197.3 kg (435 lb) Plan per GATHERING WORKER Pfeiffer: -Continue Lasix 80 mg dailh and Spironolactone 25 mg daily. -Continue daily weights. -Continue 2 g sodium restriction daily and 64 oz fluid restriction daily. Future considerations: 1. Addition of SGLT2-I-->might be contraindicated d/t yeast in groin 2. vDietician and vPT Contingency plan: If worsening swelling or breathing, consider increasing lasix from 80mg daily to 80mg BID x3 days and KCL from 20mEq daily to 20mEq BID x3 days Goals of care and disease progression/expectations discussed today: no Cadence Castaneda RN Assessment & Plan (09/28/2021 9:02 AM CDT): There were no vitals taken for this visit. Brief HPI 09/28/2021: Reports doing well over all today. Confirms he went to PCP visit yesterday and was started on Aldactone 25 mg daily. Nhan states medication is being picked up today. He confirms taking Lasix 80 mg daily and reports good urine output with taking Lasix. He denies increase SOB, orthopnea, coughing, swelling, chest pain or pressure. He continues to deny dizziness/lightheadedness r/t diuretic. Nhan had CMP, Mag and BMP completed yesterday. Per PCP note, may stop KCL pending on K results and also may supplement mag pending results. Pt is receiving bariatric scale from . Nhan confirm visited yesterday and believes is visiting again this afternoon. HFpEF/HFmrEF Checklist Most recent TTE 09/14/21: Mild LVH, LVEF 55-60%, LV DD, RVSP 60mm Hg, Bi-atrial enlargement, mild to moderate MR, mild TR/WV HR control rating:TBD. Pt setting up biometric equipment today. 14 day average HR:TBD Afib: Yes. Sotalol 60mg BID, Coumadin (INR 1.7 on 09/17/21) PPM present: Yes/No BP control rating: TBD. Pt setting up biometric equipment today. 14 day average BP:TBD Antihypertensives: Lisinopril 2.5mg daily, Lasix 80mg daily CKD: No Cr Stable?:Yes Liver cirrhosis: Possibly Supporting documentation:CT Chest 09/13/21: lobulated hepatic contour which may reflect cirrhosis SGLT2-I: No: Consider adding in the near future Dietary compliance: Fair. States he does not use table salt. Reports doing well with daily fluid restriction. Medication compliance: excellent Wt Readings from Last 3 Encounters: 09/14/21 (!) 241.3 kg (531 lb 14.4 oz) 05/04/21 (!) 197.3 kg (435 lb) 04/06/21 (!) 197.3 kg (435 lb) Plan per GATHERING WORKER Pfeiffer: -Continue Lasix 80 mg daily. 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 -Follow 2 g sodium restriction daily and 1.5 L fluid restriction daily. -Set up biometric equipment today. -Obtain labs (CBC with diff, Reticulocytes, Folate, Vit B12, Ferritin and Iron). Future considerations: 1. Addition of SGLT2-I-->might be contraindicated d/t yeast in groin 2. vDietician and vPT Contingency plan: If worsening swelling or breathing, consider increasing lasix from 80mg daily to 80mg BID x3 days and KCL from 20mEq daily to 20mEq BID x3 days Goals of care and disease progression/expectations discussed today: no Cadence Castaneda RN Assessment & Plan (09/22/2021 3:19 PM CDT): Reason for visit: Scheduled Visit Date of Admission: 09/13 Date of Discharge: 09/17 Dry Weight: 531? Current Weight: Unsure. Pt does not have scale. Biometric equipment ordered today. Pre-Admission Diuretic & Dosing: Lasix 80 mg daily Post-Discharge Diuretic & Dosing: Lasix 80 mg daily Assessment/HPI: Vital Signs: There were no vitals taken for this visit. Reports feeling well today. He denies increase SOB, orthopnea, coughing, wheezing, swelling, chest pain or pressure. Requested to complete med rec with pt as planned/discussed on 09/20. Pt states he does not have medications near him and requests that med rec be completed with his brother, Davis. Explained importance of wanting to complete med rec MATT. Pt verbalizes understanding. States he will have his brother call tomorrow, 09/23 at 0900. Biometric equipment ordered for pt today. Plan: -Complete med rec tomorrow. -R/S PCP appt. Current Living Situation: Lives in own home with his brother. Transportation Needs: -Do you have problems getting transportation to doctors appointments? No -Do you have same day transportation? Yes, brother drives. Caregivers/Home Health/Additional Support: His brother, Davis. Home OT supposed to be starting soon. 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 12/24/2017 Other specified eating disorder 11/20/2017 Psychological factor affecting physical conditio n 11/20/2017 H/O gastric ulcer 03/27/2016 Chronic pain syndrome 02/25/2016 Morbid obesity with body mass index of 40.0-49.9 10/15/2013 Chronic low back pain 02/12/2012 Degeneration of lumbar or lumbosacral interverte bral disc 02/12/2012 Overview (10/28/2020): S/P Lumbar Surgery: 1997 x 2, 1998 x 1 Essential hypertension 06/30/2008 DAWN on CPAP 05/15/2008 Overview (10/27/2020): Wears nocturnal O2 GERD (gastroesophageal reflux disease) 8 Hyperlipidemia 05/15/2008 Resolved Problems Problem Noted Date Diagnosed Date Resolved Date Acute metabolic encephalopathy 06/29/2024 07/09/2024 Acute on chronic diastolic c ongestive heart failure 09/13/2021 07/20/2022 Prediabetes 07/04/2016 02/09/2021 Colon cancer screening 02/12/201201/29 Overview (10/27/2020): Colonoscopy: 04/12 (no polyps) Elevated glucose 02/12/2012 01/29/2019 Overview (10/27/2020): Glucose: 146 (12/11) A1C: 5.9 (8) Transient cerebral ischemia 06/15/2008 03/26/2018 Encounters Date Type Department Care Team Description 12/22/[address] [phone] Robert Mustafa MD Provider Call 12/03/[address] [phone] Robert Mustafa MD 12/03/2024 Orders Only [facility] Information Management [place] [address] [place] [phone] Provider, Abstract 11/27/[address] [phone] Robert Mustafa MD Information 11/27/[address] [phone] Robert Mustafa MD 11/27/2024 Orders Only [facility] Information Management [place] [address] [place] [address] Provider, Abstract 11/25/2024 1:40 PM CDT [facility] [address] [place] [address] Robert Mustafa MD Pressure injury of ankle, stage 4, unspecified laterality (CMS/HCC) (Primary Dx); Type 2 diabetes mellitus with other circulatory complication, without long-term current use of insulin (CMS/HCC); Willingham catheter in place; Bed confinement status; Paroxysmal atrial fibrillation (CMS/HCC) 11/25/2024 Telephone [facility] [address] [place] [address] Robert Mustafa MD Provider Call 11/21/2024 External Device Data Initial Department [address] [place] [address] Dr NICOLE: [place] [address] [facility], 11/19/2024 External Device Data [facility] Provider, Abstract 11/18/2024 External Device Data [facility] Provider, Abstract 11/17/2024 4:25 PM CDT - 11/17/2024 11:59 PM CDT Hospital Encounter [facility] [place] [address] [phone] Ambulance, [facility] Discharge Disposition: [facility] 11/11/2024 External Device Data [facility] Provider, Abstract 10/15/2024 Orders Only [address] [phone] Robert Mustafa MD Chronic respiratory failure with hypoxia and hypercapnia (CMS/HCC) (Primary Dx); Chronic diastolic heart failure (CMS/HCC); Obesity hypoventilation syndrome (CMS/HCC); Hospice care patient 10/14/2024 External Device Data [facility] Provider, Abstract 10/10/[address] [place] [phone] Robert Mustafa MD Generalized pain 10/10/[address] [phone] Robert Mustafa MD Provider Call; Provider Call from Last 3 Months Immunizations Immunization Administration Dates Next Due (PFIZER)(12 YR UP) COVID-19 VACCINE - EMERGENCY USE AUTHORIZATION, MRNA, [id number](PF) 30 MCG/0.3 ML IM SUSP 12/02/2020,11/10/2020 (TENIVAC)(7 YRS UP) TETANUS AND DIPHTHERIA TOXOIDS, ADSORBED (5 LF OF TETANUS TOXOID AND 2 LF OF DIPHTHERIA TOXOID), 0.5ML (PF), IM 12/24/2017 INFLUENZA VACCINE QUADRIVALE NT 3 YR UP PF IM 05/19/2019,03/26/2018,04/11/2017,2013 INFLUENZA VACCINE QUADRIVALE NT 6 MOS UP IM 03/30/2022 INFLUENZA VACCINE QUADRIVALE NT 6 MOS UP PF IM 04/06/2021,04/26/2020 INFLUENZA VACCINE QUADRIVALE NT ADJ 65 YR UP PF IM 04/25/2023 Influenza Vaccine Split 3+ Yrs IM 05/10/2011 Influenza Vaccine Split 3+ Yrs PF IM 05/05/2013, 04/15/2012 Family History Medical History Relation Name Comments Lung Cancer Father Colon Cancer Neg Hx Diabetes Neg Hx Heart Disease Neg Hx Relation Name Status Comments Father Social History Tobacco Use Types Packs/Day Years Used Date Smoking Tobacco: Former Smokeless Tobacco: Never Tobacco Cessation:Counseling Given: No Alcohol Use Standard Drinks/Week Comments Yes 0 (1 standard drink = 0.6 oz pur e alcohol) Feeling Safe Answer Date Recorded Within the last year, have y ou been afraid of your partner or ex-partner? No 12/05/2021 Within the last year, have y ou been humiliated or emotionally abused in other ways by your partner or ex-partner? No Within the last year, have y ou been kicked, hit, slapped, or otherwise physically hurt by your partner or ex-partner? No 12/05/2021 Within the last year, have y ou been raped or forced to have any kind of sexual activity by your partner or ex-partner? No 12/05/2021 Social Connections Answer Date Recorded In a typical week, how many times do you talk on the telephone with family, friends, or neighbors? Three times a week 12/06/19 How often do you get togethe r with friends or relatives? Twice a week 12/05/2021 How often do you attend [facility] or shinto services? Never 12/05/2021 Do you belong to any clubs o r organizations such as christian groups, unions, fraternal or athletic groups, or school groups? No 12/05/2021 Attends Club or Organization Meetings Not on nish e 12/05/2021 Are you , , di vorced, , never , or living with a partner? 12/05/2021 Financial Resource Strain Answer Date R ecorded How hard is it for you to pa y for the very basics like food, housing, medical care, and heating? Not hard at all 12/05/2021 Food Insecurity Answer Date Recorded In the past 12 months, have you worried that your food would run out before you had money to buy more? Never true 12/05/2021 In the past 12 months, did y ou run out of food and didn't have money to buy more? Never true 12/05/2021 Transportation Needs Answer Date Record ed In the past 12 months, has l ack of transportation kept you from medical appointments or from getting medications? No 11/2021 In the past 12 months, has l ack of transportation kept you from meetings, work, or from getting things needed for daily living? No 12/05/2021 Housing Stability Answer Date Recorded In the last 12 months, was t here a time when you were not able to pay the mortgage or rent on time? No 12/05/2021 (RETIRED) In the last 12 months, how many places have you lived? 1 12/05/2021 (RETIRED) In the last 12 sun, was there a time when you did not have a steady place to sleep or slept in a custodial (including now)? No 12/05/2021 Feeling Safe Answer Date Recorded Are you in a relationship wi th someone who hurts you emotionally and/or physically? 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 Gender Identity Not on file Sexual Orientation Not on file Last Filed Vital Signs Vital Sign Reading Time Taken Comments Blood Pressure 158/84 07/31/2024 10:33 AM R PROGRAMMER Pulse 74 08/13/2024 3:03 PM R PROGRAMMER Temperature 36.6 C (97.8 F) 07/31/2024 10:33 AM R PROGRAMMER Respiratory Rate 19 07/31/2024 10:33 AM R PROGRAMMER Oxygen Saturation 94% 08/13/2024 3:03 PM R PROGRAMMER Inhaled Oxygen Concentration - - Weight 166 kg (366 lb) 11/25/2024 1:37 PM CDT Height 193 cm (6' 4 ) 11/25/2024 1:37 PM CDT Body Mass Index 44.55 11/25/2024 1:37 PM CDT Plan of Treatment Health Maintenance Due Date Last Done Comments DIABETES ANNUAL RETINAL EXAM 1975 PNEUMOCOCCAL VACCINE 50+ YEA RS (1 of 2 - PCV) 1976 FIT-DNA Q 3 years 2002 FIT/FOBT Q 1 year 2002 Flex Sig/CT Colonography Q 5 years 2002 ZOSTER VACCINE (1 of 2) 2007 RSV VACCINE (60+ or ) (1 - Risk 60-74 years 1-dose series) 2017 DTAP/TDAP/TD VACCINES (1 - Tdap) 12/25/2017 12/25/19 18 COLORECTAL SCREENING 04/05/2022 04/05/2012 Colorectal Cancer Screening 04/05/2022 DIABETES ANNUAL FOOT EXAM 05/26/2023 05/26/2022 COVID-19 Vaccine (3 - 2023-2 5 season) 2024 12/02/2020, 11/10/2020 LDL CHOLESTEROL ANNUAL 11/27/2024 , 05/21/2022, 04/01/2021, Additional history exists INFLUENZA VACCINE (#1) 2025 3, 03/30/2022, 09/27/2021, Additional history exists DIABETES MICROALBUMIN ANNUAL SCREEN 04/18/2025 04/18/2024 DIABETES HBA1C Q 6 MONTHS 05/31/20252024, 06/29/2024, 04/18/2024, Additional history exists Abdominal Aortic Aneurysm (A AA) Screening Completed 01/01/2013 Goals Goal Patient Goal Type Associated Problems Recent Progress Patient-Stated? Author Patient Stated that would like to work on remembering medication General Yes Davis Harkins Note: Patient will impact pain by witting down medication in a note book to keep track. Procedures Procedure Name Priority Date/Time Associated Diagnosis Comments HEMOGLOBIN A1C Routine 11/28/2024 PROTIME-INR Routine 11/28/2024 BASIC METABOLIC PANEL Routine 11/27/2024 8:59 AM CDT PROTIME-INR Routine 11/27/2024 PROTIME-INR Routine 11/26/2024 COMPREHENSIVE METABOLIC PANEL Routine 11/25/2024 8:58 AM CDT COMPREHENSIVE METABOLIC PANEL Routine 11/25/2024 8:58 AM CDT COMPREHENSIVE METABOLIC PANEL Routine 11/17/2024 8:50 AM CDT PROTIME-INR Routine 11/17/2024 MICROALBUMIN/CREATININ E RATIO, RANDOM UR Routine 04/18/2024 8:00 AM CDT Type 2 diabetes mellitus without complication, without long-term current use of insulin (CMS/HCC) LIPID PANEL Routine 11/28/2023 3:33 PM CDT Type 2 diabetes mellitus with other circulatory complication, without long-term current use of insulin (CMS/HCC) US ABDOMEN COMPLETE Routine 01/01/2013 8 :56 AM CDT Hyperlipidemia Obesity Elevated liver enzymes from Last 3 Months or Most Recently Relevant to Health Maintenance Results * PROTIME-INR (11/28/2024) Only the most recent of4 resultswithin the time period is included. ABSTRACTED PROTIME 33.6 ABSTRACTED INR 3.0 Blood 11/28/2024 Abstract Provider HEMATOLOGY ORDERABLES Final Re sult * HEMOGLOBIN A1C (11/28/2024) ABSTRACTED HGB A1C 4.3 % Blood 11/28/2024 Abstract Provider CHEMISTRY ORDERABLES Final Res ult * BASIC METABOLIC PANEL (11/27/2024 8:59 AM CDT) Blood Abstract Provider CHEMISTRY ORDERABLES Final Res ult * COMPREHENSIVE METABOLIC PANEL (11/25/2024 8:58 AM CDT) Only the most recent of3 resultswithin the time period is included. Blood Abstract Provider CHEMISTRY ORDERABLES Final Res ult * MICROALBUMIN/CREATININE RATIO, RANDOM UR (04/18/2024 8:00 AM CDT) ABSTRACTED MICROALBUMIN,URI NE 1.0 EXTERNAL LAB ABSTRACTED CREATININE, URINE 21 EXTERNAL LAB ABSTRACTED MICROALBUMIN/CRE ATININE RATIO, URINE 48 EXTERNAL LAB Urine URINE SPECIMEN OBTAINED BY CLEAN CATCH PROCEDURE / Unknown 04/18/2024 8:00 AM CDT us Robert Mustafa MD URINE ORDERABLES Final Re sult Performing Organization Address City/[facility]/ZIP Co de Phone Number EXTERNAL LAB * (ABNORMAL) LIPID PANEL (11/28/2023 3:33 PM CDT) CHOLESTEROL 172 <200 mg/dL [facility] HDL 53 > OR = 40 mg/dL [facility] TRIGLYCERIDE 199(H) <150 mg/dL [facility] LDL CALCULATED 89 mg/dL (calc) [facility] Comment: Reference range: <100 Desirable range <100 mg/dL for primary prevention; <70 mg/dL for patients with CHD or diabetic patients with > or = 2 CHD risk factors. LDL-C is now calculated using the Corinne calculation, which is a validated novel method providing better accuracy than the Friedewald equation in the estimation of LDL-C. Ricardo GARCIA et al. HUI. 2013;310(19): 8872-6101 (http://education.[employer]/faq/WFA543) CHOL/HDL RATIO 3.2 <5.0 (calc) [facility] NON-HDL CHOLESTEROL 119 <130 mg/dL (calc) [facility] Comment: For patients with diabetes plus 1 major ASCVD risk factor, treating to a non-HDL-C goal of <100 mg/dL (LDL-C of <70 mg/dL) is considered a therapeutic option. Test Performed at: [facility] [address] [facility] [place] [address] Lilly Montgomery MD Blood 11/28/2023 3:33 PM CDT 11/30/2023 5:14 AM CDT us Robert Mustafa MD CHEMISTRY ORDERABLES Loraine l Result [facility] [phone] [facility] [address] [facility] [place] [address] * US ABDOMEN COMPLETE (01/01/2013 8:56 AM CDT) Anatomical Region Laterality Modality Abdomen Other Narrative 01/01/2013 8:56 AM CDT This exam has been autofinalized. Procedure Note Conversion, Auto Data - 09/01/2022 This exam has been autofinalized. us Jarvis De Leon DO US ORDERABLES Final Result from Last 3 Months or Most Recently Relevant to Health Maintenance Insurance MEDICARE PART A AND B Advance Directives For more information, please contact: [phone] * Full Code (Latest Code Status on File) Date Activated Date Inactivated Comments 06/29/2024 2:36 AM 07/10/2024 4:26 PM * NO CPR (In Event of Cardiopulmonary Arrest) Date Activated Date Inactivated Comments 10/10/2021 2:00 PM 06/28/2024 11:58 PM Question Answer Comments Mechanical Ventilation (for respiratory distress) - Invasive (i.e. intubation): No * NO CPR (In Event of Cardiopulmonary Arrest) Date Activated Date Inactivated Comments 09/13/2021 6:02 PM 09/17/2021 4:04 PM Question Answer Comments Mechanical Ventilation (for respiratory distress) - Invasive (i.e. intubation): No Mechanical Ventilation (for respiratory distress) - Non-Invasive (i.e. BiPAP, CPAP): No Cardioversion - (Allow prior to Cardiopulmonary Arrest): Yes Vasopressors - (Allow prior to Cardiopulmonary A rrest): Yes Inotropic Agents - (Allow prior to Cardiopulmona ry Arrest): Yes External Pacing - (Allow prior to Cardiopulmonar y Arrest): Yes Invasive Monitoring - (Allow prior to Cardiopulm onary Arrest): Yes Care Teams Booking Clerk Relationship Specialty Start Date End Date Robert Mustafa MD [address] [address] PCP - General Family Practice 02/25/16
--- NOTE | 2025-01-01 10:13 | W.ED.ABDPA2 ---
HPI - Abdominal Pain General: Chief Complaint: Abdominal Pain Stated Complaint: abd pain Time Seen by Provider: 01/01/25 10:03 History of Present Illness: This patient is a 69 year old presenting from a senior care with abdominal pain that started last night. He reports intermittent right lower quadrant pain that is sharp an intermittent. He says it was in basically the entire right lower quadrant. It is relieved somewhat by laying back and worse when sitting up. He has not have nausea and vomiting prior to ambulance ride which did make him nauseous. He has been having normal BM. He is not actively having pain at the time of my evaluation. He has had an abdominal laparotomy in the past - when his stomach exploded . He has morbid obesity, CHF, chronic back pain, bed sores. He denies ever having had abdominal pain like this before. He denies fever. He also has a documented history of dementia so I am not sure how accurate his provided history might be. He has a rosales in place that he says was only placed a few weeks ago when he became unable to stand up. He reports that he can't stand due to leg weakness. Related Data Home Medications ?Medication ?Instructions ?Recorded ?Confirmed omeprazole 40 mg capsule,delayed 40 mg PO QAM 10/17/20 05/20/22 release hydrocodone 10 mg-acetaminophen 1 tab PO Q6H PRN Pain 12/31/20 05/20/22 325 mg tablet tamsulosin 0.4 mg capsule 0.4 mg PO QAM 12/31/20 05/20/22 acetaminophen 500 mg tablet 500 - 1,000 mg PO Q4H PRN Pain 06/20/21 05/20/22 multivitamin 1 tab PO DAILY 06/20/21 05/20/22 aspirin 81 mg chewable tablet 81 mg PO DAILY 05/20/22 05/20/22 bumetanide 2 mg tablet 2 mg PO DAILY 05/20/22 05/20/22 folic acid 1 mg tablet 1 mg PO DAILY 05/20/22 05/20/22 furosemide 80 mg tablet (Lasix) 80 mg PO DAILY 05/20/22 05/20/22 metolazone 5 mg tablet 5 mg PO DAILY 05/20/22 05/20/22 paroxetine HCl 30 mg tablet 30 mg PO DAILY 05/20/22 05/20/22 sotalol 120 mg tablet 120 mg PO DAILY 05/20/22 05/20/22 spironolactone 25 mg tablet 25 mg PO DAILY 05/20/22 05/20/22 Previous Rx's ?Medication ?Instructions ?Recorded potassium chloride 10 mEq 40 meq (4 x 10 mEq) PO DAILY #30 08/23/21 capsule,extended release caps ferrous gluconate 324 mg (37.5 mg 324 mg PO EVERY OTHER DAY #90 tabs 05/22/22 iron) tablet fluconazole 100 mg tablet 100 mg PO DAILY #7 tabs 05/22/22 silver sulfadiazine 1 % topical 1 applic topical Q12H #85 grams 05/22/22 cream (SSD) warfarin 5 mg tablet 10 mg (2 x 5 mg) PO BID #90 tabs 05/22/22 Allergies Allergy/AdvReac Type Severity Reaction Status Date / Time tape Allergy Unknown Uncoded 05/04/21 10:28 [facility] PFSH: Medical History (Updated 01/01/25 @ 19:42 by Dior Hubbard MD) Pickwickian syndrome Chronic respiratory failure with hypoxia Respiratory failure with hypoxia and hypercapnia Diastolic heart failure Acute exacerbation of chronic obstructive airways disease On home oxygen therapy 2-3 L Cor pulmonale Obesity Hypersomnia Chronic hypercapnic respiratory failure Chronic anticoagulation Atrial fibrillation Diabetes mellitus, type II Recurrent falls Pneumonia Morbid obesity with BMI of 50.0-59.9, adult History of gastric ulcer with perforation Hypertension GERD (gastroesophageal reflux disease) Surgical History History of esophagogastroduodenoscopy History of exploratory laparotomy for perforated gastric ulcer Family History Father Cancer lung Mother Asthma CAD (coronary artery disease) Sister Cerebral aneurysm Social History Smoking and tobacco/nicotine status: former use of tobacco/nicotine Quit status (tobacco/nicotine): has quit using Year quit tobacco: 1978 - PD x 7 Years Second hand smoke exposure: Yes Alcohol intake: current Alcohol intake frequency: few times a week Alcohol type: beer Substance/Drug Use: never Lives independently: Yes Household members: family Marital status: Current occupational status: disabled Previous occupational history: history of working in [employer] Do you think of yourself as: Straight/Heterosexual Current gender identity: Male Physical Exam Const: COMMON NORMALS: no acute distress and no limitations GENERAL APPEARANCE: cooperative and comfortable OTHER: pale, morbidly obese, lips have a bluish hue HENMT: HEAD & SCALP: normal to inspection FACE & SINUS: normal facial exam OTHER: scabbing on bilateral cheeks where the oxygen tubing sits, pale Eye: GENERAL EYE: appearance normal, both eyes and all related structures CONJUNCTIVA: Yes conjunctival abnormal (very pale) Neck/C-Spine: COMMON NORMALS: supple and no JVD Chest: COMMONS NORMALS: normal inspection of the chest Resp: COMMON NORMALS: normal respiratory effort, No use of accessory muscles and clear to auscultation bilaterally AUSCULTATION: clear to auscultation bilaterally OTHER: distant breath sounds Cardio: COMMON NORMALS: no JVD, regular rate, regular rhythm and No murmurs present (Cardio) RATE: regular rate RHYTHM: regular rhythm GI: OTHER: midline scar from xiphoid to pubis - well healed and old Tender RLQ - mass palpable right and below umbilicus but doesn't appear to be tender. Very firm and fixed ? scar tissue or mesh? Non pulsitile : OTHER: Rosales catheter in place, urine is cloudy with sediment Extremity: NARRATIVE EXTREMITY EXAM: bilateral lower extremities with fresh dressing in place feet mottled and bluish. Upper extremities with extensive areas of ecchymosis Neuro: OTHER: Alert and oriented to place. 2/5 strength bilateral lower extremities, 4+/5 upper bilaterally Psych: COMMON NORMALS: mental status grossly normal, cooperative and normal affect Course Vital Signs: Vital signs: Vital Signs Temperature 97.4 F L 01/01/25 10:00 Pulse Rate 87 01/01/25 14:36 Respiratory Rate 16 01/01/25 14:00 Blood Pressure 110/65 01/01/25 14:36 Pulse Oximetry 99 01/01/25 14:36 Oxygen Delivery Me thod Nasal Cannula 01/01/25 10:00 Oxygen Flow Rate 2 01/01/25 10:00 MDM - Abdominal Pain Medical Decision Making Patient with right lower quadrant pain - obviously has had at least some major abdominal surgery - and could easily have hernias in various places that I am not able to identify due to body habitus. Given that he has had no vomiting and has had normal BM, I doubt a bowel obstruction. I will investigate his prior records and will gets labs, UA, CT abd/pelvis. UA shows UTI - culture sent. Rocpehin in the ED and cefpodoxime outpatient treatment. Avoiding flouroquinolone due to his med list which includes sotolol. Also evidence of possible colitis on CT - he has been having normal BM. Right pleural effusion with some atelectasis - doubt pneumonia clinically. Lab Data 01/01/25 11:02 01/01/25 11:02 Labs/Radiology: Radiology Impressions Abdomen/Pelvis CT 01/01/25 10:11 IMPRESSION: 1. Small RIGHT pleural effusion with compressive atelectasis in the RIGHT lower lobe. Subsegmental atelectasis in the RIGHT middle lobe. Recommend correlation for pneumonia. 2. Mild diffuse wall thickening with enhancement involving the sigmoid colon and rectum with constipation. Findings suspicious for infectious or inflammatory colitis. Recommend correlation with symptoms. 3. Fluid distended and hydropic gallbladder although no pericholecystic fluid or gallbladder wall thickening. 4. Cirrhotic configuration to the liver. 5. Normal size spleen. 6. Small esophageal hiatal hernia. 7. Rosales catheter. 8. No other acute findings. Laboratory Results WBC 8.82 10^3/uL (3.29-11.43) 01/01/25 11:02 RBC 3.73 10^6/uL (3.85-5.65) L 01/01/25 11:02 Hgb 10.90 g/dL (11.27-16.99) L 01/01/25 11:02 Hct 35.4 % (37-53) L 01/01/25 11:02 MCV 94.9 fl (82-101) 01/01/25 11:02 MCH 29.2 pg (27-33) 01/01/25 11:02 MCHC 30.8 g/dL (30-55) 01/01/25 11:02 RDW 15.0 % (12.1-15.1) 01/01/25 11:02 Plt Count 311 10^3/cmm (157-399) 01/01/25 11:02 MPV 9.1 fL (7.4-10.4) 01/01/25 11:02 Neut % (Auto) 71.3 % 01/01/25 11:02 Lymph % (Auto) 16.8 % 01/01/25 11:02 [place] % (Auto) 8.3 % 01/01/25 11:02 Eos % (Auto) 2.2 % 01/01/25 11:02 Baso % (Auto) 0.5 % 01/01/25 11:02 Neut # (Auto) 6.30 10^3/uL (1.8-7.7) 01/01/25 11:02 Lymph # (Auto) 1.5 10^3/uL (0.8-4.8) 01/01/25 11:02 [place] # (Auto) 0.7 10^3/uL (0.2-0.9) 01/01/25 11:02 Eos # (Auto) 0.2 10^3/uL (0.0-0.8) 01/01/25 11:02 Baso # (Auto) 0.0 10^3/uL (0.0-0.1) 01/01/25 11:02 Nucleated RBC % (auto) 0 % 01/01/25 11:02 Nucleated RBCs # 0.0 /100WBC 01/01/25 11:02 PT 32.30 SECONDS (12.1-14.9) H 01/01/25 11:02 INR 2.94 (0.8-1.2) H 01/01/25 11:02 Sodium 134 mmol/L (136-145) L 01/01/25 11:02 Potassium 5.2 mmol/L (3.5-5.1) H 01/01/25 11:02 Chloride 97 mmol/L (98-107) L 01/01/25 11:02 Carbon Dioxide 26 mmol/L (22-29) 01/01/25 11:02 Anion Gap 16.2 (5-19) 01/01/25 11:02 BUN 17 mg/dL (8-23) 01/01/25 11:02 Creatinine 0.9 mg/dL (0.7-1.2) 01/01/25 11:02 GFR Calculation 84.2 mL/min (90-130) L 01/01/25 11:02 Glucose 97 mg/dL (65-115) 01/01/25 11:02 Calculated Osmolality 279 mOsm/kg (285-295) L 01/01/25 11:02 Calcium 9.3 mg/dL (8.5-10.5) 01/01/25 11:02 Total Bilirubin 0.6 mg/dL (0.15-1.2) 01/01/25 11:02 AST 27 U/L (0-40) 01/01/25 11:02 ALT 24 U/L (0-41) 01/01/25 11:02 Alkaline Phosphatase 183 U/L (40-130) H 01/01/25 11:02 Total Protein 7.0 g/dL (6.6-8.7) 01/01/25 11:02 Albumin 2.4 g/dL (3.5-5.2) L 01/01/25 11:02 Globulin 4.6 g/dL (1.3-4.6) 01/01/25 11:02 Urine Color Yellow (Yellow) 01/01/25 12:35 Urine Appearance Turbid (CLEAR) A 01/01/25 12:35 Urine pH 6.5 (5-7) 01/01/25 12:35 Ur Specific [place] 1.011 (1.005-1.030) 01/01/25 12:35 Urine Protein Trace (Negative) A 01/01/25 12:35 Urine Glucose (UA) Negative (Normal) 01/01/25 12:35 Urine Ketones Negative (Negative) 01/01/25 12:35 Urine Blood 2+ (Negative) A 01/01/25 12:35 Urine Nitrate Positive (Negative) A 01/01/25 12:35 Urine Bilirubin Negative (Negative) 01/01/25 12:35 Urine Urobilinogen 1.0 mg/dL (Negative) 01/01/25 12:35 Ur Leukocyte Esterase 3+ (Negative) A 01/01/25 12:35 Urine RBC 0-2 /hpf (0-2) 01/01/25 12:35 Urine WBC >100 /hpf (0-5) H 01/01/25 12:35 Ur Squamous Epith Cells 0-5 /hpf (0-5) 01/01/25 12:35 Amorphous Sediment Not Reportable 01/01/25 12:35 Urine Bacteria Exceeds /hpf (NONE) 01/01/25 12:35 Hyaline Casts 88.85 /lpf 01/01/25 12:35 All radiology interpretation(s) finalized by discharge Discharge Plan Discharge Patient Disposition: Xfer [facility] Clinical Impression: Urinary tract infection associated with indwelling urethral catheter, Abdominal pain, Constipation, Colitis, Morbid obesity with BMI of 50.0-59.9, adult, Afib, Pleural effusion on right Condition: Stable Discharge Orders: Discharge ED (Routine); Ordered 01/01/25 Ordered By: Dior Hubbard Referrals: Robert Mustafa [Primary Care Provider, Family Practice] Patient Instructions: Abdominal Pain (ED) Activity Restrictions/Additional Instructions: Use a daily stool softener and an enema or suppository for daily bowel movements Print Language: Cameroonian Coding Level of Care Code ED Surgery Aid for Daisy Hdz
[2025-01-01 11:10] LABS: Hematocrit 35.4 % (37-53); Hemoglobin 10.90 g/dL (11.27-16.99); Mean Corpuscular HGB Conc 30.8 g/dL (30-55); Mean Corpuscular Hemoglobin 29.2 pg (27-33); Mean Corpuscular Volume 94.9 fl (82-101); Nucleated Red Blood Cells % 0 %; Platelet Count 311 10^3/cmm (157-399); Red Blood Count 3.73 10^6/uL (3.85-5.65); White Blood Count 8.82 10^3/uL (3.29-11.43)
[2025-01-01 11:21] LABS: INR 2.94 (0.8-1.2); Prothrombin Time 32.30 SECONDS (12.1-14.9)
[2025-01-01 11:25] LABS: Alanine Aminotransferase 24 U/L (0-41); Albumin Level 2.4 g/dL (3.5-5.2); Alkaline Phosphatase 183 U/L (40-130); Anion Gap 16.2 (5-19); Aspartate Amino Transferase 27 U/L (0-40); Blood Urea Nitrogen 17 mg/dL (8-23); Calcium 9.3 mg/dL (8.5-10.5); Carbon Dioxide 26 mmol/L (22-29); Chloride 97 mmol/L (98-107); Creatinine Clr Calc Pharmacy 128.3696; Globulin 4.6 g/dL (1.3-4.6); Glucose 97 mg/dL (65-115); Osmolality Calculated 279 mOsm/kg (285-295); Potassium 5.2 mmol/L (3.5-5.1); Sodium 134 mmol/L (136-145); Total Protein 7.0 g/dL (6.6-8.7)
[2025-01-01] MEDS: iohexol 350 mg/mL 500 mL Btl (per mL) IV (12:45)
[2025-01-01 12:47] LABS: Glucose Urine UA Negative (Normal); Nitrate Urine Positive (Negative); Specific Gravity, Urine 1.011 (1.005-1.030)
[2025-01-01 12:50] LABS: Add Urine Microscopic? YES
[2025-01-01 13:18] LABS: UA Slide Review UA Slide Review Perf
[2025-01-01] MEDS: cefTRIAXone 2,000 mg SDV 2000 MG IVP (14:35)
== END 2025-01-01 14:36 ==
PROVIDERS: Emergency Provider Emergency Medicine; PCP Family Medicine
DX: T83.511A Infection and inflammatory reaction due to indwelling urethral catheter, initial encounter (principal); R10.9 Unspecified abdominal pain; K59.00 Constipation, unspecified; K52.9 Noninfective gastroenteritis and colitis, unspecified; I48.91 Unspecified atrial fibrillation; J90 Pleural effusion, not elsewhere classified; E66.01 Morbid (severe) obesity due to excess calories; Z68.43 Body mass index [BMI] 50.0-59.9, adult; Z87.891 Personal history of nicotine dependence; X58.XXXA Exposure to other specified factors, initial encounter; J44.9 Chronic obstructive pulmonary disease, unspecified; E11.9 Type 2 diabetes mellitus without complications; I11.0 Hypertensive heart disease with heart failure; I50.30 Unspecified diastolic (congestive) heart failure
CPT/HCPCS: 36415; 74177; 80053; 81001; 85025; 85610; 87077; 87086; 87186; 96374; 99285; J0696